=== PATIENT | female | born 1995 | race Caucasian/White ===

== ENCOUNTER 2016-04-14 20:22 | Emergency (ER) | payer SELFPAY ==
[~2016-04-14] VITALS: Ht 162.6 cm; Wt 93.4 kg
[~2016-04-14 20:22] MED LIST: ARIP15TA4 PO; NITR-65 PO; [UNRECOGNIZED DRUG - OTHER]; celexa; lithium; mirilax; vitamin
--- OUTSIDE RECORDS SUMMARY | 2016-04-14 20:28 | XMS REPORT ---
Author VARSHA [facility] eClinicalWorks Address Unknown Phone Unavailable Care Team Providers Care Vulcanizer Operator Name Role Phone VARSHA CASTRO CP Unavailable Allergies, Adverse Reactions, Alerts Substance Reaction Event Type Haldol Info Not Available Drug Allergy Problems Problem Type Condition Code Onset Dates Condition Status Assessment Encounter for Depo-Provera contraception Z30.42 Active Problem Anxiety state, unspecified 300.00 Active Problem Elevated liver enzymes 790.5 Active Problem Unspecified episodic mood disorder 296.90 Active Problem Unspecified disorder of skin and subcutaneous tissue 709.9 Active Assessment Encounter for other general counseling and advice on contraception Z30.09 Active Problem Elevated prolactin level 259.9 Active Problem Routine general medical examination at health care facility V70.0 Active Medications Medication Code System Code Instructions Start Date End Date Status Dosage Lowrys Carbonate [facility] [address]-84 300 MG Orally Three times a day 1 capsule Abilify [facility] [address]-10 2 MG Orally Once a day 1 tablet Procedures Procedure Coding System Code Date Preventive Care Est Pt. Age 18-39 CPT-4 85430 Dec 04, 2015 DEPO PROVERA (150 MG/ML) CPT-4 J1050 Dec 04, 2015 URINE TEST CPT-4 84042 Dec 04, 2015 CULTURE, BACTERIA, OTHER CPT-4 14403 Dec 04, 2015 No Charge CPT-4 25918 Dec 04, 2015 SPECIMEN HANDLING CPT-4 49811 Dec 04, 2015 THER/PROPH/DIAG INJ, SC/IM CPT-4 69698 Dec 04, 2015 DOWNEY VAG, DNA, DIR PROBE CPT-4 87093 Dec 04, 2015 TRICHOMONAS ASSAY W/OPTIC CPT-4 77389 Dec 04, 2015 Vital Signs Date/Time: Dec 04, 2015 Cardiac Monitoring Heart Rate 74 bpm Weight 202.3 lbs Height 64.5 in BMI 34.18 Index Blood Pressure Diastolic 72 mmHg Blood Pressure Systolic 102 mmHg Results Name Result Date Reference Range Unit Abnormality Flag CULTURE, GENITAL ----Genital Culture, Routine Final report [id number] PDF Report ----PDF Report1 [facility] 20151204 TEST, URINE (IN HOUSE) ----RESULTS Negative [id number] ----Lot # [id number] ----Control + [id number] ----Exp date 20151204 PAP TEST, HPV IF ASCUS ----. . 20151204 GC/CHLAM PROBE (STATE) Summary Purpose eClinicalWorks Submission
[2016-04-14] MEDS ORDERED: NS IV 1000 ML 1,000 ML IV SCH (20:45)
[2016-04-14 20:52] LABS: BILIRUBIN,URINE NEGATIVE (NEGATIVE); KETONES,URINE NEGATIVE (NEGATIVE); LEUKOCYTE ESTERASE ,URINE NEGATIVE (NEGATIVE); NITRITE,URINE NEGATIVE (NEGATIVE); PH,URINE 7 (5-9); PROTEIN,URINE NEGATIVE (NEGATIVE); UROBILINOGEN,URINE NORMAL (NORMAL)
--- NOTE | 2016-04-14 21:02 | ED General ---
General Chief Complaint: General Problems/Pain Stated Complaint: TREMORS, DRY HEAVING, CONFUSION, DROOLING Nursing Triage Note: Pt presents to ED with c/o increased anxiety, drooling, and shakiness over the last week. Pt was instructed to increase [place] dosage to 4 tabs daily a few months ago, she was not taking them as prescribed d/t "Not wanting to", over the last 2 weeks she has started taking them as prescribed besides missing two pills. Since taking them as prescribed she has noticed these symptoms. Unable to get into [facility] for 2 weeks. VSS. Nursing Sepsis Screen: No Definite Risk Source of Information: Patient Exam Limitations: No Limitations History of Present Illness Time Seen by Provider: 20:59 Initial Comments To ER with concerns of high lithium levels. She states that she has increased anxiety, drooling, tremors over the past 4 days. She denies vomiting and diarrhea but did have nausea 2 days ago--none since then. She states that about 2 weeks ago she was instructed to increase her lithium level to 4 tablets daily. Prior to that she was supposed to be taking 3 tablets daily but was in reality only taking about 3 tablets per week. Her mental health provider was unaware that she was not taking 3 tablets daily so increased her dose to 4 tablets daily. So, her dose went from 3 tablets over the course of a week to 4 tablets daily about 2 weeks ago. She is uncertain how many milligrams are in each tablet. She has been on lithium for several years. She had a similar episode about 2 years ago and was told that her lithium level was high while she was inpatient at [facility]. Timing/Duration: 3-4 Days Severity: Moderate Associated Systoms: No Chest Pain, No Cough, No Diaphoresis, No Fever/Chills, No Nausea/Vomiting Allergies and Home Medications Allergies Coded Allergies: haloperidol (Verified Allergy, Mild, 12/16/14) Home Medications (Reported) (Reported) (Reported) (Reported) (Reported) Aripiprazole 15 Mg Tablet 15 MG PO (Reported) Nitrofurantoin Monohyd/M-Cryst 100 Mg Capsule #14 1 TAB PO BID Prescribed by: SHIRA ZUÑIGA on 12/17/14 0000 Constitutional: see HPI EENTM: see HPI Respiratory: no symptoms reported Cardiovascular: no symptoms reported Genitourinary: no symptoms reported Musculoskeletal: no symptoms reported Skin: no symptoms reported Psychiatric/Neurological: No Symptoms Reported Hematologic/Lymphatic: No Symptoms Reported Immunological/Allergic: no symptoms reported Past Nyktryi-Mgyrax-Svyjmi Hx Patient Social History Alcohol Use: Denies Use Recreational Drug Use: No Smoking Status: Never a Smoker 2nd Hand Smoke Exposure: No Recent Foreign Travel: No Contact w/Someone Who Travel: No Recent Infectious Disease Expo: No Recent Hopitalizations: No Immunizations Up To Date Tetanus Booster (TDap): Unknown Seasonal Allergies Seasonal Allergies: No Surgeries HX Surgeries: No Respiratory Hx Respiratory Disorders: No Cardiovascular Hx Cardiac Disorders: No Neurological Hx Neurological Disorders: No Reproductive System Hx : 0 Hx Para: 0 Hx Reproductive Disorders: No Genitourinary Hx Genitourinary Disorders: No Gastrointestinal Hx Gastrointestinal Disorders: No Musculoskeletal Hx Musculoskeletal Disorders: No Endocrine Hx Endocrine Disorders: No Psychosocial Hx Psychiatric Problems: Yes (previous suicidal ideation) Behavioral Health Disorders: Anxiety, Bipolar, Schizophrenia, Depression Family Medical History Significant Family History: No Pertinent Family Hx Physical Exam Vital Signs Vital Sign - Last 12Hours 04/14/16 20:30 Temp 98.5 Pulse 73 Resp 18 B/P 131/86 Pulse Ox 100 O2 Delivery Room Air Capillary Refill : Less Than 3 Seconds General Appearance: No Apparent Distress WD/WN HEENT: PERRL/EOMI TMs Normal Neck: Full Range of Motion Normal Inspection Respiratory: Normal Breath Sounds No Accessory Muscle Use No Respiratory Distress Cardiovascular: Regular Rate, Rhythm Normal Peripheral Pulses Gastrointestinal: Normal Bowel Sounds Soft Extremity: Normal Capillary Refill Normal Inspection Neurologic/Psychiatric: Alert Oriented x3 Other (she has a flat affect but she is able to converse with me and recall all of her history including dosage changes and what her symptoms are. She does have tremors in her hands noted bilaterally, mild.) Skin: Normal Color Warm/Dry Progress/Results/Core Measures Results/Orders Lab Results Laboratory Tests Test 04/14/16 20:44 04/14/16 20:55 Range/Units Ur Tricyclic Antidepressants Screen NEGATIVE NEGATIVE Urine Amphetamines Screen NEGATIVE NEGATIVE Urine Bacteria NEGATIVE /HPF Urine Barbiturates Screen NEGATIVE NEGATIVE Urine Benzodiazepines Screen NEGATIVE NEGATIVE Urine Bilirubin NEGATIVE NEGATIVE Urine Cannabinoids Screen NEGATIVE NEGATIVE Urine Casts NONE /LPF Urine Clarity SLIGHTLY CLOUDY Urine Cocaine Screen NEGATIVE NEGATIVE Urine Color YELLOW Urine Crystals NONE /LPF Urine Culture Indicated NO Urine Glucose (UA) NEGATIVE NEGATIVE Urine Ketones NEGATIVE NEGATIVE Urine Leukocyte Esterase NEGATIVE NEGATIVE Urine Methadone Screen NEGATIVE NEGATIVE Urine Methamphetamines Screen NEGATIVE NEGATIVE Urine Mucus NEGATIVE /LPF Urine Nitrite NEGATIVE NEGATIVE Urine Opiates Screen NEGATIVE NEGATIVE Urine Oxycodone Screen NEGATIVE NEGATIVE Urine Phencyclidine Screen NEGATIVE NEGATIVE Urine Propoxyphene Screen NEGATIVE NEGATIVE Urine Protein NEGATIVE NEGATIVE Urine RBC NONE /HPF Urine RBC (Auto) NEGATIVE NEGATIVE Urine Renal Epithelial Cells NONE /HPF Urine Specific [place] 1.010 L 1.016-1.022 Urine Squamous Epithelial Cells >50 H /HPF Urine Urobilinogen NORMAL NORMAL MG/DL Urine WBC 0-2 /HPF Urine pH 7 5-9 Alanine Aminotransferase (ALT/SGPT) 15 0-55 U/L Albumin 4.3 3.2-4.5 G/DL Alkaline Phosphatase 85 40-136 U/L Anion Gap 12 5-14 MMOL/L Aspartate Amino Transf (AST/SGOT) 21 5-34 U/L BUN/Creatinine Ratio 10 Basophils # (Auto) 0.0 0.0-0.1 10^3/uL Basophils (%) (Auto) 0 0-10 % Blood Urea Nitrogen 9 7-18 MG/DL Calcium Level 9.0 8.5-10.1 MG/DL Carbon Dioxide Level 19 L 21-32 MMOL/L Chloride Level 110 H 98-107 MMOL/L Creatinine 0.86 0.60-1.30 MG/DL Eosinophils # (Auto) 0.2 0.0-0.3 10^3/uL Eosinophils (%) (Auto) 2 0-10 % Estimat Glomerular Filtration Rate > 60 Glucose Level 102 70-105 MG/DL Hematocrit 38 35-52 % Hemoglobin 12.7 11.5-16.0 G/DL Lymphocytes # (Auto) 2.6 1.0-4.0 X 10^3 Lymphocytes (%) (Auto) 35 12-44 % Mean Corpuscular Hemoglobin 28 25-34 PG Mean Corpuscular Hemoglobin Concent 33 32-36 G/DL Mean Corpuscular Volume 83 80-99 FL Mean Platelet Volume 10.4 7.4-10.4 FL Monocytes # (Auto) 0.5 0.0-1.0 X 10^3 Monocytes (%) (Auto) 6 0-12 % Neutrophils # (Auto) 4.1 1.8-7.8 X 10^3 Neutrophils (%) (Auto) 56 42-75 % Platelet Count 286 130-400 10^3/uL Potassium Level 3.5 L 3.6-5.0 MMOL/L Red Blood Count 4.58 4.35-5.85 10^6/uL Red Cell Distribution Width 13.8 10.0-14.5 % Serum Alcohol < 10 <10 MG/DL Sodium Level 141 135-145 MMOL/L Thyroid Stimulating Hormone (TSH) 5.34 H 0.35-4.94 UIU/ML Total Bilirubin 0.3 0.1-1.0 MG/DL Total Protein 7.0 6.4-8.2 G/DL White Blood Count 7.4 4.3-11.0 10^3/uL My Orders Orders-DANI MARTIN APRN Cbc With Automated Diff (04/14/16 20:35) Comprehensive Metabolic Panel (04/14/16 20:35) Ua Culture If Indicated (04/14/16 20:35) Urine Bedside (04/14/16 20:35) Thyroid Stimulating Hormone (04/14/16 20:35) [place] Level (04/14/16 20:35) Saline Lock/Iv-Start (04/14/16 20:35) Ns Iv 1000 Ml (Sodium Chloride 0.9%) (04/14/16 20:45) Alcohol (04/14/16 20:53) Drug Screen Stat (Urine) (04/14/16 20:53) Vital Signs/I&O Vital Sign - Last 12Hours 04/14/16 20:30 Temp 98.5 Pulse 73 Resp 18 B/P 131/86 Pulse Ox 100 O2 Delivery Room Air Blood Pressure Mean: 101 Point of Care Testing Urine -Bedside: Negative Departure Communication Progress Notes 2207-patient feels much better at this time. She states that her tremors get worse with anxiety which happens when she talks to people. I have discussed the case with Dr. Talbot. We will reduce her dose from 4 tablets daily as she 's been doing for the past few days to one tablet daily. She will follow up with her mental health provider in one week. She states she would like to get off of the lithium altogether which she takes for bipolar and schizoaffective disorder. she is laughing and joking at this time and well-appearing. Impression Impression: Primary Impression: Occasional tremors Additional Impression: Anxiety Disposition: 01 HOME, SELF-CARE Condition: Stable Departure-Patient Inst. Decision time for Depature: 22:08 Referrals: [facility] (PCP/Family) Primary Care Physician Patient Instructions: NO INSTRUCTIONS GIVEN Add. Discharge Instructions: 1. Reduce your lithium dose to 1 tablet daily until you are seen by your regular health care provider 2. Return to the emergency room for any worsening or other concerns All discharge instructions reviewed with patient and/or family. Voiced understanding. DANI MARTIN APRN Apr 14, 2016 21:02
[2016-04-14 21:03] LABS: BASOPHILS % (AUTO) 0 % (0-10); EOSINOPHILS # (AUTO) 0.2 10^3/uL (0.0-0.3); EOSINOPHILS % (AUTO) 2 % (0-10); LYMPHOCYTES # (AUTO) 2.6 X 10^3 (1.0-4.0); LYMPHOCYTES % (AUTO) 35 % (12-44); MEAN CORPUSCULAR HEMOGLOBIN 28 PG (25-34); MEAN CORPUSCULAR HGB CONC 33 G/DL (32-36); MEAN CORPUSCULAR VOLUME 83 FL (80-99); MEAN PLATELET VOLUME 10.4 FL (7.4-10.4); MONOCYTES # (AUTO) 0.5 X 10^3 (0.0-1.0); MONOCYTES % (AUTO) 6 % (0-12); NEUTROPHILS # (AUTO) 4.1 X 10^3 (1.8-7.8); NEUTROPHILS % (AUTO) 56 % (42-75); PLATELET COUNT 286 10^3/uL (130-400); RED BLOOD COUNT 4.58 10^6/uL (4.35-5.85); RED CELL DISTRIBUTION WIDTH 13.8 % (10.0-14.5); WHITE BLOOD COUNT 7.4 10^3/uL (4.3-11.0)
[2016-04-14 21:17] LABS: SQUAMOUS EPITHELIAL CELL,UR >50 /HPF; WBC,URINE 0-2 /HPF
[2016-04-14 21:21] LABS: ALANINE AMINOTRANSFERASE 15 U/L (0-55); ALBUMIN 4.3 G/DL (3.2-4.5); ANION GAP 12 MMOL/L (5-14); ASPARTATE AMINO TRANSFERASE 21 U/L (5-34); BILIRUBIN,TOTAL 0.3 MG/DL (0.1-1.0); BLOOD UREA NITROGEN 9 MG/DL (7-18); BUN/CREATININE RATIO 10; CARBON DIOXIDE 19 MMOL/L (21-32); CHLORIDE 110 MMOL/L (98-107); CREATININE SERUM 0.86 MG/DL (0.60-1.30); GFR ESTIMATED > 60; GLUCOSE 102 MG/DL (70-105); POTASSIUM 3.5 MMOL/L (3.6-5.0); SODIUM 141 MMOL/L (135-145)
[2016-04-14 21:24] LABS: ALCOHOL < 10 MG/DL (<10)
[2016-04-14 21:41] LABS: THYROID STIMULATING HORMONE 5.34 UIU/ML (0.35-4.94)
[2016-04-14 22:13] VITALS: BP 104/70
== END 2016-04-14 22:13 | disposition home or self-care (01) ==
LOC: EDUNIT# 20:22 → ER 20:24
DX: G25.1 Drug-induced tremor (principal); F41.9 Anxiety disorder, unspecified; T43.591A Poisoning by other antipsychotics and neuroleptics, accidental (unintentional), initial encounter; F31.9 Bipolar disorder, unspecified; Z79.899 Other long term (current) drug therapy
CPT/HCPCS: 36415; 80053; 80178; 80306; 80320; 81000; 84443; 84703; 85025; 96360

== ENCOUNTER 2016-07-19 12:11 | Emergency (ER) | payer SELFPAY ==
[~2016-07-19] VITALS: Ht 160 cm; Wt 93.9 kg
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
[2016-07-19 13:31] LABS: BASOPHILS % (AUTO) 0 % (0-10); EOSINOPHILS # (AUTO) 0.2 10^3/uL (0.0-0.3); EOSINOPHILS % (AUTO) 2 % (0-10); LYMPHOCYTES # (AUTO) 2.4 X 10^3 (1.0-4.0); LYMPHOCYTES % (AUTO) 31 % (12-44); MEAN CORPUSCULAR HEMOGLOBIN 27 PG (25-34); MEAN CORPUSCULAR HGB CONC 32 G/DL (32-36); MEAN CORPUSCULAR VOLUME 83 FL (80-99); MEAN PLATELET VOLUME 10.6 FL (7.4-10.4); MONOCYTES # (AUTO) 0.5 X 10^3 (0.0-1.0); MONOCYTES % (AUTO) 7 % (0-12); NEUTROPHILS # (AUTO) 4.6 X 10^3 (1.8-7.8); NEUTROPHILS % (AUTO) 60 % (42-75); PLATELET COUNT 303 10^3/uL (130-400); RED BLOOD COUNT 4.97 10^6/uL (4.35-5.85); RED CELL DISTRIBUTION WIDTH 14.1 % (10.0-14.5); WHITE BLOOD COUNT 7.7 10^3/uL (4.3-11.0)
[2016-07-19 13:34] LABS: BILIRUBIN,URINE NEGATIVE (NEGATIVE); KETONES,URINE NEGATIVE (NEGATIVE); LEUKOCYTE ESTERASE ,URINE NEGATIVE (NEGATIVE); NITRITE,URINE NEGATIVE (NEGATIVE); PH,URINE 8 (5-9); PROTEIN,URINE NEGATIVE (NEGATIVE); UROBILINOGEN,URINE NORMAL (NORMAL)
[2016-07-19 13:54] LABS: SQUAMOUS EPITHELIAL CELL,UR >50 /HPF
[2016-07-19 13:56] LABS: ALANINE AMINOTRANSFERASE 19 U/L (0-55); ALBUMIN 4.5 G/DL (3.2-4.5); ANION GAP 8 MMOL/L (5-14); ASPARTATE AMINO TRANSFERASE 21 U/L (5-34); BILIRUBIN,TOTAL 0.3 MG/DL (0.1-1.0); BLOOD UREA NITROGEN 7 MG/DL (7-18); BUN/CREATININE RATIO 9; CALCIUM 9.2 MG/DL (8.5-10.1); CARBON DIOXIDE 22 MMOL/L (21-32); CHLORIDE 109 MMOL/L (98-107); CREATININE SERUM 0.76 MG/DL (0.60-1.30); GFR ESTIMATED > 60; GLUCOSE 80 MG/DL (70-105); POTASSIUM 3.7 MMOL/L (3.6-5.0); SODIUM 139 MMOL/L (135-145); TOTAL PROTEIN 7.3 G/DL (6.4-8.2)
[2016-07-19 13:59] LABS: ALCOHOL < 10 MG/DL (<10)
[2016-07-19 14:01] LABS: ACETAMINOPHEN < 10 UG/ML (10-30); SALICYLATE < 5.0 MG/DL (5.0-20.0)
[2016-07-19 16:10] VITALS: BP 130/86
== END 2016-07-19 16:10 | disposition short-term general hospital (02) ==
LOC: EDUNIT# 12:11 → ER 12:13
DX: R45.851 Suicidal ideations (principal); F25.9 Schizoaffective disorder, unspecified; Z79.899 Other long term (current) drug therapy
CPT/HCPCS: 36415; 80053; 80306; 80320; 80329; 81000; 84443; 84703; 85025; 93005

== ENCOUNTER 2016-10-17 04:10 | Emergency (ER) | payer OTHER ==
[~2016-10-17] VITALS: Ht 160 cm; Wt 93.9 kg
[~2016-10-17 04:10] MED LIST changes: -lithium; +lithium PO
[2016-10-17] MEDS ORDERED: LACTATED RINGERS 1,000 ML IV ONE (04:37)
--- NOTE | 2016-10-17 04:43 | ED Headache ---
General Stated Complaint: HEADACHE,BLURRY VISION Source: patient History of Present Illness Time seen by provider: 04:25 Initial Comments PT ARRIVES VIA POV FROM HOME--DROVE HERSELF HERE, LIVES ALONE STATES SHE WOKE UP AT 0100 TODAY WITH A "MAJOR HEADACHE" --STATES "IT WAS PART OF MY DREAM" AND IT WOKE HER UP C/O NAUSEA AND VOMITED X 2 C/O BLURRY VISION AT TIMES STATES "IT'S LIKE A MIGRAINE BUT SUPER INTENSE" HEADACHE IS IN FRONTAL AREA PT HAS HAD HEADACHES SIMILAR TO THIS SINCE HER TEENS--STATES SHE USED TO GET THEM EVERY MONTH HAD SIMILAR HEADACHE ON Friday10/11/16 THAT LASTED FROM [phone], WENT AWAY ON IT'S OWN PT HAS NOT TAKEN ANYTHING FOR HER HEADACHE TODAY OR FRIDAY PT WITH EXTENSIVE PSYCH HISTORY --STATES SHE TAKES LITHIUM, AND LAST DOSE WAS YESTERDAY AFTERNOON. DENIES MISSED DOSES PT HAS BEEN ON MULTIPLE ANTIPSYCHOTICS, BUT STATES "WE JUST DECIDED TO DROP THEM ALL"--SHE DECIDED TO STOP TAKING THEM--AND QUIT TAKING THEM ALL EXCEPT LITHIUM ON Friday10/11/16 PT DENIES BEING UNDER ANY STRESS RECENTLY--STATES "MY STRESS WENT AWAY" PT HAS HAD AT LEAST 5 PSYCH ADMITS, LAST ONE WAS EARLIER THIS YEAR LMP > 1 YEAR AGO, WAS ON DEPO-PROVERA, BUT HAS NOT HAD ANY FOR MANY MONTHS. PT STATES SHE HAS HAD MULTIPLE NEGATIVE HOME TESTS, INCLUDING Friday10/11/16 PT IS NOT USING ANY OTHER TYPE OF CONTROL. PCP: [facility] PSYCH: [facility]. Allergies and Home Medications Allergies Coded Allergies: haloperidol (Verified Allergy, Mild, 12/16/14) Home Medications Aripiprazole 15 Mg Tablet, 15 MG PO, (Reported) Butalb/Acetaminophen/Caffeine 1 Each Capsule, 1-2 EACH PO Q6H PRN for HEADACHE, #10 Prescribed by: DAVID DUNBAR on 10/17/16 0553 Nitrofurantoin Monohyd/M-Cryst 100 Mg Capsule, 1 TAB PO BID, #14 Ref 0 Prescribed by: SHIRA ZUÑIGA on 12/17/14 0000 Ondansetron 4 Mg Tab.rapdis, 4 MG PO Q4H, #10 Prescribed by: DAVID DUNBAR on 10/17/16 0553 [celexa] , (Reported) [cogetin] , (Reported) [lithium] , (Reported) [mirilax] , (Reported) [vitamin] , (Reported) Constitutional: no symptoms reported Eyes: See HPI, Blurred Vision Ears, Nose, Mouth, Throat: no symptoms reported Respiratory: no symptoms reported Cardiovascular: no symptoms reported Gastrointestinal: see HPI, nausea, vomiting Genitourinary: see HPI : No (LMP > 1 YEAR AGO) Musculoskeletal: no symptoms reported Skin: no symptoms reported Psychiatric/Neurological: See HPI, Headache, Denies Numbness, Denies Paresthesia, Denies Seizure, Denies Tingling, Denies Weakness Past Dacxgds-Uoutvc-Ehhaku Hx Patient Social History Alcohol Use: Denies Use Recreational Drug Use: No Smoking Status: Never a Smoker 2nd Hand Smoke Exposure: No Recent Foreign Travel: No Contact w/Someone Who Travel: No Recent Hopitalizations: No Immunizations Up To Date Tetanus Booster (TDap): Unknown Seasonal Allergies Seasonal Allergies: No Surgeries HX Surgeries: No Respiratory Hx Respiratory Disorders: No Cardiovascular Hx Cardiac Disorders: No Neurological Hx Neurological Disorders: Yes Neurological Disorders: Headaches /Migraines Reproductive System : No Hx Reproductive Disorders: No Genitourinary Hx Genitourinary Disorders: No Gastrointestinal Hx Gastrointestinal Disorders: No Musculoskeletal Hx Musculoskeletal Disorders: No Endocrine Hx Endocrine Disorders: No HEENT HX ENT Disorders: No Cancer Hx Cancer: No Psychosocial Hx Psychiatric Problems: Yes (EXTENSIVE PSYCH ISSUES, HAS BEEN HOSPITALIZED AT LEAST 5 TIMES FOR PSYCH ISSUES; SUICIDAL IDEATIONS) Behavioral Health Disorders: Sleep Difficulties, Anxiety, Suicide Attempts, Bipolar, Schizophrenia, Depression Family Medical History Significant Family History: No Pertinent Family Hx Physical Exam Vital Signs Vital Sign - Last 12Hours 10/17/16 04:16 Temp 97.4 Pulse 90 Resp 20 B/P (MAP) 131/74 Pulse Ox 100 O2 Delivery Room Air Capillary Refill : General Appearance: WD/WN, no apparent distress, other (SMILING, DOES NOT APPEAR TO BE IN ANY DISCOMFORT OR DISTRESS. ) HEENT: PERRL/EOMI, normal ENT inspection, TMs normal, pharynx normal, No photophobia Neck: non-tender, full range of motion, supple, normal inspection Cardiovascular: normal peripheral pulses, regular rate, rhythm, no murmur Respiratory: normal breath sounds, no respiratory distress, no accessory muscle use Gastrointestinal: non tender, soft Back: normal inspection Extremities: normal inspection, no pedal edema, normal capillary refill Psychiatric: alert, oriented x 3 Crainal Nerves: normal hearing, normal speech, PERRL Coordination/Gait: normal finger to nose, normal gait Motor/Sensory: no motor deficit, no sensory deficit, no pronator drift Skin: normal color, warm/dry Progress/Results/Core Measures Results/Orders Lab Results Laboratory Tests Test 10/17/16 04:34 10/17/16 05:19 Range/Units White Blood Count 7.8 4.3-11.0 10^3/uL Red Blood Count 4.76 4.35-5.85 10^6/uL Hemoglobin 12.5 11.5-16.0 G/DL Hematocrit 39 35-52 % Mean Corpuscular Volume 82 80-99 FL Mean Corpuscular Hemoglobin 26 25-34 PG Mean Corpuscular Hemoglobin Concent 32 32-36 G/DL Red Cell Distribution Width 14.8 H 10.0-14.5 % Platelet Count 297 130-400 10^3/uL Mean Platelet Volume 9.8 7.4-10.4 FL Neutrophils (%) (Auto) 62 42-75 % Lymphocytes (%) (Auto) 29 12-44 % Monocytes (%) (Auto) 6 0-12 % Eosinophils (%) (Auto) 3 0-10 % Basophils (%) (Auto) 0 0-10 % Neutrophils # (Auto) 4.9 1.8-7.8 X 10^3 Lymphocytes # (Auto) 2.3 1.0-4.0 X 10^3 Monocytes # (Auto) 0.4 0.0-1.0 X 10^3 Eosinophils # (Auto) 0.2 0.0-0.3 10^3/uL Basophils # (Auto) 0.0 0.0-0.1 10^3/uL Sodium Level 139 135-145 MMOL/L Potassium Level 3.7 3.6-5.0 MMOL/L Chloride Level 108 H 98-107 MMOL/L Carbon Dioxide Level 23 21-32 MMOL/L Anion Gap 8 5-14 MMOL/L Blood Urea Nitrogen 9 7-18 MG/DL Creatinine 0.75 0.60-1.30 MG/DL Estimat Glomerular Filtration Rate > 60 BUN/Creatinine Ratio 12 Glucose Level 105 70-105 MG/DL Calcium Level 8.8 8.5-10.1 MG/DL Serum Test, Qualitative NEGATIVE NEGATIVE Serum Alcohol < 10 <10 MG/DL Urine Opiates Screen NEGATIVE NEGATIVE Urine Oxycodone Screen NEGATIVE NEGATIVE Urine Methadone Screen NEGATIVE NEGATIVE Urine Propoxyphene Screen NEGATIVE NEGATIVE Urine Barbiturates Screen NEGATIVE NEGATIVE Ur Tricyclic Antidepressants Screen NEGATIVE NEGATIVE Urine Phencyclidine Screen NEGATIVE NEGATIVE Urine Amphetamines Screen NEGATIVE NEGATIVE Urine Methamphetamines Screen NEGATIVE NEGATIVE Urine Benzodiazepines Screen NEGATIVE NEGATIVE Urine Cocaine Screen NEGATIVE NEGATIVE Urine Cannabinoids Screen NEGATIVE NEGATIVE My Orders Orders - DAVID DUNBAR DO Alcohol (10/17/16 04:37) Basic Metabolic Panel (10/17/16 04:37) Cbc With Automated Diff (10/17/16 04:37) Drug Screen Stat (Urine) (10/17/16 04:37) Hcg,Qualitative Serum (10/17/16 04:37) Ondansetron Injection (Zofran Injectio (10/17/16 04:45) Saline Lock/Iv-Start (10/17/16 04:37) Lactated Ringers (Lr 1000 Ml Iv Solution (10/17/16 04:37) [place] Level (10/17/16 04:43) Ketorolac Injection (Toradol Injection) (10/17/16 05:15) Medications Given in ED Current Medications Medications Dose Ordered Sig/Tierney Route Start Time Stop Time Status Last Admin Dose Admin Ketorolac Tromethamine 30 mg ONCE ONCE IVP 10/17/16 05:15 10/17/16 05:16 UNV 10/17/16 05:09 30 MG Lactated Ringer's 1,000 ml @ 0 mls/hr Q0M ONCE IV 10/17/16 04:37 10/17/16 04:40 DC 10/17/16 04:43 1,000 MLS/HR Ondansetron HCl 4 mg ONCE ONCE IVP 10/17/16 04:45 10/17/16 04:46 DC 10/17/16 04:43 4 MG Vital Signs/I&O Vital Sign - Last 12Hours 10/17/16 04:16 Temp 97.4 Pulse 90 Resp 20 B/P (MAP) 131/74 Pulse Ox 100 O2 Delivery Room Air Progress Note : Progress Note NAUSEA COMPLETELY GONE AND HEADACHE NEARLY COMPLETELY GONE AT DISMISSAL Departure Impression Impression: Primary Impression: Headache Disposition: 01 HOME, SELF-CARE Condition: Improved Departure-Patient Inst. Referrals: [facility] (PCP/Family) Primary Care Physician Patient Instructions: Headache, Adult (DC) Add. Discharge Instructions: LOTS OF CLEAR LIQUIDS MOTRIN 800 MG EVERY 6 HOURS NEEDED FOR PAIN FOLLOW UP WITH [facility] IF SYMPTOMS RETURN Scripts Ondansetron (Zofran Odt) 4 Mg Tab.rapdis 4 MG PO Q4H for Nausea/Vomiting, #10 TAB Prov: DAVID DUNBAR DO 10/17/16 Butalb/Acetaminophen/Caffeine (Esgic Capsule) 1 Each Capsule 1-2 EACH PO Q6H Y for HEADACHE, #10 CAP Prov: DAVID DUNBAR DO 10/17/16 DAVID DUNBAR DO Oct 17, 2016 04:43
[2016-10-17] MEDS ORDERED: ONDANSETRON 4 MG/2 ML (SDV) Z0FRAN IVP ONE (04:45)
[2016-10-17 04:47] LABS: BASOPHILS % (AUTO) 0 % (0-10); EOSINOPHILS # (AUTO) 0.2 10^3/uL (0.0-0.3); EOSINOPHILS % (AUTO) 3 % (0-10); LYMPHOCYTES # (AUTO) 2.3 X 10^3 (1.0-4.0); LYMPHOCYTES % (AUTO) 29 % (12-44); MEAN CORPUSCULAR HEMOGLOBIN 26 PG (25-34); MEAN CORPUSCULAR HGB CONC 32 G/DL (32-36); MEAN CORPUSCULAR VOLUME 82 FL (80-99); MEAN PLATELET VOLUME 9.8 FL (7.4-10.4); MONOCYTES # (AUTO) 0.4 X 10^3 (0.0-1.0); MONOCYTES % (AUTO) 6 % (0-12); NEUTROPHILS # (AUTO) 4.9 X 10^3 (1.8-7.8); NEUTROPHILS % (AUTO) 62 % (42-75); PLATELET COUNT 297 10^3/uL (130-400); RED BLOOD COUNT 4.76 10^6/uL (4.35-5.85); RED CELL DISTRIBUTION WIDTH 14.8 % (10.0-14.5); WHITE BLOOD COUNT 7.8 10^3/uL (4.3-11.0)
[2016-10-17] MEDS ORDERED: KETOROLAC 30 MG/ML VIAL ONE (05:02)
[2016-10-17 05:05] LABS: ALCOHOL < 10 MG/DL (<10); ANION GAP 8 MMOL/L (5-14); BLOOD UREA NITROGEN 9 MG/DL (7-18); BUN/CREATININE RATIO 12; CALCIUM 8.8 MG/DL (8.5-10.1); CARBON DIOXIDE 23 MMOL/L (21-32); CHLORIDE 108 MMOL/L (98-107); CREATININE SERUM 0.75 MG/DL (0.60-1.30); GFR ESTIMATED > 60; GLUCOSE 105 MG/DL (70-105); POTASSIUM 3.7 MMOL/L (3.6-5.0); SODIUM 139 MMOL/L (135-145)
[2016-10-17] MEDS ORDERED: KETOROLAC 30 MG/ML VIAL IVP ONE (05:15)
[2016-10-17] MEDS ORDERED: BUTA1CAP45 PO (05:53)
[2016-10-17] MEDS ORDERED: ONDA4TAB8 PO (05:53)
[2016-10-17 06:00] VITALS: BP 131/74
[2017-01-06] MEDS ORDERED: CEPH500C PO (23:37)
== END 2016-10-17 06:00 | disposition home or self-care (01) ==
LOC: EDUNIT# 04:10 → ER 04:15
DX: G43.909 Migraine, unspecified, not intractable, without status migrainosus (principal); F41.9 Anxiety disorder, unspecified; F31.9 Bipolar disorder, unspecified; F20.9 Schizophrenia, unspecified; Z91.5 Personal history of self-harm
CPT/HCPCS: 36415; 80048; 80178; 80306; 80320; 84703; 85025; 96361; 96374; 96375

== ENCOUNTER 2016-12-22 21:25 | Emergency (ER) | payer SELFPAY ==
[~2016-12-22] VITALS: Ht 160 cm; Wt 101.6 kg
[~2016-12-22 21:25] MED LIST changes: +BUTA1CAP45 PO; +ONDA4TAB8 PO; +lithium; -lithium PO
--- OUTSIDE RECORDS SUMMARY | 2016-12-22 21:30 | XMS REPORT ---
Author Author CLEO YANG [facility] Address [address] [place] [address] Care Team Providers Care Mat Making Machine Tender Name Role Phone CLEO YANG Unavailable PROBLEMS Type Condition ICD9-CM Code [id number] Code Onset Dates Condition Status SNOMED Code Problem Overweight E66.3 Active 455105226 Problem Bipolar depression F31.30 Active 97374689 Problem Establishing care with new doctor, encounter for Z71.89 Active 477249228 Problem Breakthrough bleeding on depo provera N92.1 Active 57667960 ALLERGIES No Information SOCIAL HISTORY Never Assessed PLAN OF CARE Activity Details Follow Up patient informed she needs an appt. for a WWE before her next depo shot, 3 Months Reason: VITAL SIGNS MEDICATIONS No Known Medications RESULTS Name Result Date Reference Range TEST, URINE (IN HOUSE) 2016-05-14 RESULTS negative Lot # [id number] Control + Exp date 06/2017 PROCEDURES Procedure Date Ordered Result Body Site URINE TEST May 14, 2016 DEPO PROVERA (150 MG/ML) May 14, 2016 THER/PROPH/DIAG INJ, SC/IM May 14, 2016 IMMUNIZATIONS Vaccine Route Administration Date Status DEPO PROVERA (150 MG/ML) IM Intramuscular May 14, 2016 Administered MEDICAL (GENERAL) HISTORY Type Description Date Medical History schizoaffective disorder Medical History borderline personality disorder Hospitalization History 5 times in 2014 for mental health Hospitalization History [place] [facility] for suicide thoughts 07/2016
--- OUTSIDE RECORDS SUMMARY | 2016-12-22 21:31 | XMS REPORT ---
Author Author VARSHA CASTRO Organization [facility] Address [address] [place] [address] Care Team Providers Care Homeopathic Doctor Name Role Phone VARSHA CASTRO Unavailable PROBLEMS Type Condition ICD9-CM Code ROB64-ND Code Onset Dates Condition Status SNOMED Code Problem Overweight E66.3 Active 344629215 Problem Bipolar depression F31.30 Active 00999937 Problem Establishing care with new doctor, encounter for Z71.89 Active 992612911 Problem Breakthrough bleeding on depo provera N92.1 Active 68090502 ALLERGIES No Information SOCIAL HISTORY Never Assessed PLAN OF CARE VITAL SIGNS MEDICATIONS Medication Instructions Dosage Frequency Start Date End Date Duration Status Depo-Provera 150 MG/ML Intramuscular once every 90 days 1 ml Active RESULTS No Results PROCEDURES No Known procedures IMMUNIZATIONS No Known Immunizations MEDICAL (GENERAL) HISTORY Type Description Date Medical History schizoaffective disorder Medical History borderline personality disorder Hospitalization History 5 times in 2014 for mental health Hospitalization History [facility] [facility] for suicide thoughts 07/2016
--- OUTSIDE RECORDS SUMMARY | 2016-12-22 21:31 | XMS REPORT ---
Author Author SCOTT CONLEY Organization [facility] Address [address] [place] [address] Care Team Providers Care Patrol Sergeant Name Role Phone SCOTT CONLEY Unavailable PROBLEMS Type Condition ICD9-CM Code [id number] Code Onset Dates Condition Status SNOMED Code Problem Bipolar depression F31.30 Active 47384927 Problem Establishing care with new doctor, encounter for Z71.89 Active 061283064 Problem Overweight E66.3 Active 322959636 Problem Breakthrough bleeding on depo provera N92.1 Active 12667800 ALLERGIES Unknown Allergies SOCIAL HISTORY No smoking Hx information available PLAN OF CARE VITAL SIGNS MEDICATIONS Medication Instructions Dosage Frequency Start Date End Date Duration Status Depo-Provera 150 MG/ML Active [place] Carbonate 300 MG Orally Three times a day 1 capsule 8h Active Abilify 2 MG Orally Once a day 1 tablet 24h Active RESULTS Name Result Date Reference Range TEST, URINE (IN HOUSE) 2016-02-27 RESULTS negative Lot # [id number] Control + Exp date 05/2017 PROCEDURES Procedure Date Ordered Related Diagnosis Body Site DEPO PROVERA (150 MG/ML) Feb 27, 2016 THER/PROPH/DIAG INJ, SC/IM Feb 27, 2016 URINE TEST Feb 27, 2016 IMMUNIZATIONS Vaccine Route Administration Date Status DEPO PROVERA (150 MG/ML) IM Intramuscular Feb 27, 2016 Administered
[2016-12-22] MEDS ORDERED: LEVO25TA2 PO (21:44)
--- NOTE | 2016-12-22 22:25 | ED Psychosocial ---
General Chief Complaint: Psych/Social Disorder Stated Complaint: PSYCH EVAL Nursing Triage Note: pt reports wanting admitted for suidial thoughts for "a while" no specific plan. Source: patient Exam Limitations: no limitations (BRONWYN HERNANDEZ MD) History of Present Illness Time seen by provider: 21:54 Initial Comments This 21-year-old woman presents to the emergency room with exacerbations of chronic mental health issues. She had an issue with her fianc that caused "chaos" with her friends and family. She feels like her friends and family would "be better off without me". She has suicidal ideation and states an unusual plan for suicide. She knows an individual who she states is "psychotic " who she thinks would willingly kill her if she proposed that to him. She reports having a festination with the characters Vale and [place] from [facility]. She identifies with the character [place] and states the individual she would approach about killing her would identify with the Joker ( who is abusive to [place]). She also states she enjoys the thrill of pain. She is presently a patient of [facility] and sees Nette Bajwa and Nereida Hensley (spelling?). She is medicated with lithium and levothyroxin. She has supervised medication distribution. Patient reports she has been admitted a total of 6 times in the past for psychiatric issues. She has had admissions at [facility] in [place]. She reports that she feels worse that she did in 2014 when she was admitted 5 times. She is shaky and intermittently tearful. (BRONWYN HERNANDEZ MD) Allergies and Home Medications Allergies Coded Allergies: haloperidol (Verified Allergy, Mild, 12/16/14) Home Medications Aripiprazole 15 Mg Tablet, 15 MG PO, (Reported) Levothyroxine Sodium 25 Mcg Tablet, Unknown Dose PO, (Reported) [lithium] , (Reported) Constitutional: see HPI EENTM: no symptoms reported Respiratory: no symptoms reported Cardiovascular: no symptoms reported Gastrointestinal: no symptoms reported Genitourinary: no symptoms reported : No Musculoskeletal: no symptoms reported Skin: no symptoms reported Psychiatric/Neurological: See HPI (BRONWYN HERNANDEZ MD) Past Zjsszgp-Yhhjxg-Alzybh Hx Patient Social History Alcohol Use: Denies Use Recreational Drug Use: No Smoking Status: Never a Smoker 2nd Hand Smoke Exposure: No Recent Foreign Travel: No Contact w/Someone Who Travel: No Recent Infectious Disease Expo: No Recent Hopitalizations: No (BRONWYN HERNANDEZ MD) Immunizations Up To Date Tetanus Booster (TDap): Unknown (BRONWYN HERNANDEZ MD) Seasonal Allergies Seasonal Allergies: No (BRONWYN HERNANDEZ MD) Surgeries History of Surgeries: No (BRONWYN HERNANDEZ MD) Respiratory History of Respiratory Disorde: No (BRONWYN HERNANDEZ MD) Cardiovascular History of Cardiac Disorders: No (BRONWYN HERNANDEZ MD) Neurological History of Neurological Disord: Yes Neurological Disorders: Headaches /Migraines (BRONWYN HERNANDEZ MD) Reproductive System : No Last Menstrual Period: Dec 01, 2016 Hx Reproductive Disorders: No (BRONWYN HERNANDEZ MD) Genitourinary History of Genitourinary Disor: No (BRONWYN HERNANDEZ MD) Gastrointestinal History of Gastrointestinal Di: No (BRONWYN HERNANDEZ MD) Musculoskeletal History of Musculoskeletal Dis: No (BRONWYN HERNANDEZ MD) Endocrine History of Endocrine Disorders: Yes Endocrine Disorders: Hypothyroidsim (BRONWYN HERNANDEZ MD) HEENT History of HEENT Disorders: No (BRONWYN HERNANDEZ MD) Cancer History of Cancer: No (BRONWYN HERNANDEZ MD) Psychosocial History of Psychiatric Problem: Yes (previous suicidal ideation, schizophrenia/ schizoaffective disorder, borderline personality disorder) Behavioral Health Disorders: Anxiety, Bipolar, Depression Suicide Risk Notes: pt placed in gown, personal items removed from room. (BRONWYN HERNANDEZ MD) Integumentary History of Skin or Integumenta: No (BRONWYN HERNANDEZ MD) Blood Transfusions History of Blood Disorders: No (BRONWYN HERNANDEZ MD) Family Medical History Significant Family History: No Pertinent Family Hx (BRONWYN HERNANDEZ MD) Physical Exam Vital Signs Vital Sign - Last 12Hours 12/22/16 21:44 Temp 97.7 Pulse 88 Resp 18 B/P (MAP) 142/84 Pulse Ox 98 O2 Delivery Room Air (NUNU LUJAN MD) Vital Signs Capillary Refill : Less Than 3 Seconds (BRONWYN HERNANDEZ MD) General Appearance: WD/WN, no apparent distress, obese HEENT: PERRL/EOMI, normal ENT inspection, pharynx normal Neck: normal inspection Respiratory: lungs clear, normal breath sounds, no respiratory distress, no accessory muscle use Cardiovascular: regular rate, rhythm, no edema, no murmur Gastrointestinal: normal bowel sounds, non tender, soft Extremities: normal inspection, no pedal edema Neurologic/Psychiatric: mat tester II-XII nml as tested, no motor/sensory deficits, alert, oriented x 3, other (mild fine tremors. Intermittently tearful. Admits to suicidal ideation. Depressed mood. Normal affect) Appearance/Memory: appropriate appearance, impaired insight Behavior/Eye Contact: cooperative, good eye contact, normal speech Thoughts/Hallucinations: no apparent hallucination Skin: normal color, warm/dry (BRONWYN HERNANDEZ MD) Progress/Results/Core Measures Results/Orders Lab Results Laboratory Tests Test 12/22/16 22:50 12/22/16 22:55 Range/Units White Blood Count 10.7 4.3-11.0 10^3/uL Red Blood Count 5.05 4.35-5.85 10^6/uL Hemoglobin 13.3 11.5-16.0 G/DL Hematocrit 41 35-52 % Mean Corpuscular Volume 81 80-99 FL Mean Corpuscular Hemoglobin 26 25-34 PG Mean Corpuscular Hemoglobin Concent 32 32-36 G/DL Red Cell Distribution Width 14.2 10.0-14.5 % Platelet Count 280 130-400 10^3/uL Mean Platelet Volume 11.0 H 7.4-10.4 FL Neutrophils (%) (Auto) 68 42-75 % Lymphocytes (%) (Auto) 24 12-44 % Monocytes (%) (Auto) 5 0-12 % Eosinophils (%) (Auto) 2 0-10 % Basophils (%) (Auto) 0 0-10 % Neutrophils # (Auto) 7.3 1.8-7.8 X 10^3 Lymphocytes # (Auto) 2.6 1.0-4.0 X 10^3 Monocytes # (Auto) 0.6 0.0-1.0 X 10^3 Eosinophils # (Auto) 0.3 0.0-0.3 10^3/uL Basophils # (Auto) 0.0 0.0-0.1 10^3/uL Sodium Level 138 135-145 MMOL/L Potassium Level 3.8 3.6-5.0 MMOL/L Chloride Level 105 98-107 MMOL/L Carbon Dioxide Level 24 21-32 MMOL/L Anion Gap 9 5-14 MMOL/L Blood Urea Nitrogen 8 7-18 MG/DL Creatinine 0.78 0.60-1.30 MG/DL Estimat Glomerular Filtration Rate > 60 BUN/Creatinine Ratio 10 Glucose Level 93 70-105 MG/DL Calcium Level 9.7 8.5-10.1 MG/DL Magnesium Level 2.5 H 1.8-2.4 MG/DL Total Bilirubin 0.4 0.1-1.0 MG/DL Aspartate Amino Transf (AST/SGOT) 23 5-34 U/L Alanine Aminotransferase (ALT/SGPT) 21 0-55 U/L Alkaline Phosphatase 93 40-136 U/L Total Protein 7.9 6.4-8.2 GM/DL Albumin 4.5 3.2-4.5 GM/DL Thyroid Stimulating Hormone (TSH) 3.72 0.35-4.94 UIU/ML Free Thyroxine 0.95 0.70-1.48 NG/DL Serum Test, Qualitative NEGATIVE NEGATIVE Salicylates Level < 5.0 L 5.0-20.0 MG/DL Acetaminophen Level < 10 L 10-30 UG/ML Serum Alcohol < 10 <10 MG/DL Urine Color YELLOW Urine Clarity SLIGHTLY CLOUDY Urine pH 7 5-9 Urine Specific [place] 1.010 L 1.016-1.022 Urine Protein NEGATIVE NEGATIVE Urine Glucose (UA) NEGATIVE NEGATIVE Urine Ketones NEGATIVE NEGATIVE Urine Nitrite NEGATIVE NEGATIVE Urine Bilirubin NEGATIVE NEGATIVE Urine Urobilinogen NORMAL NORMAL MG/DL Urine Leukocyte Esterase 2+ H NEGATIVE Urine RBC (Auto) NEGATIVE NEGATIVE Urine RBC NONE /HPF Urine WBC 0-2 /HPF Urine Squamous Epithelial Cells >50 H /HPF Urine Crystals NONE /LPF Urine Bacteria TRACE /HPF Urine Casts NONE /LPF Urine Mucus NEGATIVE /LPF Urine Culture Indicated NO Urine Opiates Screen NEGATIVE NEGATIVE Urine Oxycodone Screen NEGATIVE NEGATIVE Urine Methadone Screen NEGATIVE NEGATIVE Urine Propoxyphene Screen NEGATIVE NEGATIVE Urine Barbiturates Screen NEGATIVE NEGATIVE Ur Tricyclic Antidepressants Screen NEGATIVE NEGATIVE Urine Phencyclidine Screen NEGATIVE NEGATIVE Urine Amphetamines Screen NEGATIVE NEGATIVE Urine Methamphetamines Screen NEGATIVE NEGATIVE Urine Benzodiazepines Screen NEGATIVE NEGATIVE Urine Cocaine Screen NEGATIVE NEGATIVE Urine Cannabinoids Screen NEGATIVE NEGATIVE (NUNU LUJAN MD) My Orders Orders - NUNU LUJAN MD Acetaminophen Tablet (Tylenol Tablet) (12/23/16 10:27) (NUNU LUJAN MD) Vital Signs/I&O Vital Sign - Last 12Hours 12/23/16 14:00 Temp 97.7 (NUNU LUJAN MD) Blood Pressure Mean: 103 Progress Note #1: Time: 22:19 Progress Note [facility] screener was contacted. We discussed patient's history and possible need for admission. After review with the sorting and folding supervisor who knows patient, admission was suggested if the patient is reporting feeling as bad as she does. Progress Note #2: Time: 00:14 Progress Note Labs have been reviewed. Patient is medically cleared but no beds were available. The following locations have been checked with the following results : [facility] [place], [place] - No beds, suggested checking in the morning [facility], [place] - No beds, possibly beds in the morning [facility] - [facility] beds [place] - No beds, suggested checking in the morning [place] - Will review chart [facility] - No beds, 15 patient wait [facility] - No beds, suggested checking after 08:00 [facility] - No beds, suggested checking back after 10:00 (BRONWYN HERNANDEZ MD) Progress Note : Progress Note I did assume care of the patient at 0 630. Patient is medically cleared for inpatient admission. 0900: I have reexamined the patient and patient remains medically clear. Reviewed the laboratory data. We have asked the social work team to assist with finding placement. Patient retells same story is listed above and still believe she would benefit from inpatient admission. She is very concerned about her well-being. Patient has pillowcase turner that distributes her meds daily. We did have her come by this morning and give her typical morning medicines. Patient has tolerated regular breakfast without difficulty. She is resting comfortably and in no distress currently. Pending assignment. 1150: Social work was able to get [facility], Oswald Martínez, to evaluate patient in the ER. After he talked with her, decision was made for return to home with close follow-up. We then talked to her together and patient was very tearful and concerned and ultimately the decision was made to place the patient in attendant care under [facility]. Patient is much more agreeable to that plan and appreciative. Oswald will set up process. Monitor patient. 1430: Patient resting comfortably and has eaten lunch. Patient to go with client technologies specialist to attendant care at approximately 1600 today. Patient still and agreement with plan. 1603: Attendant care worker here to pickers material handlers patient. Patient given her close to change back into and she will go to attendant care with [facility] worker. Patient verbalize understanding instructions and agreement with plan. (NUNU LUJAN MD) Departure Impression Impression: Primary Impression: Suicidal ideation Disposition: 01 HOME, SELF-CARE Condition: Stable Departure-Patient Inst. Decision time for Depature: 11:50 (NUNU LUJAN MD) Referrals: [facility] (PCP) Primary Care Physician NETTE BAJWA (Family) Primary Care Physician Patient Instructions: Depression, Adult (DC), Suicide Prevention Add. Discharge Instructions: All discharge instructions reviewed with patient and/or family. Voiced understanding. Go to tendon care with your client technologies specialist. Return for other concerns as needed. Continue home meds. Follow-up with your counselor tomorrow. BRONWYN HERNANDEZ MD Dec 22, 2016 22:25 NUNU LUJAN MD Dec 23, 2016 09:21
[2016-12-22 22:59] LABS: BASOPHILS % (AUTO) 0 % (0-10); EOSINOPHILS # (AUTO) 0.3 10^3/uL (0.0-0.3); EOSINOPHILS % (AUTO) 2 % (0-10); LYMPHOCYTES # (AUTO) 2.6 X 10^3 (1.0-4.0); LYMPHOCYTES % (AUTO) 24 % (12-44); MEAN CORPUSCULAR HEMOGLOBIN 26 PG (25-34); MEAN CORPUSCULAR HGB CONC 32 G/DL (32-36); MEAN CORPUSCULAR VOLUME 81 FL (80-99); MONOCYTES # (AUTO) 0.6 X 10^3 (0.0-1.0); MONOCYTES % (AUTO) 5 % (0-12); NEUTROPHILS # (AUTO) 7.3 X 10^3 (1.8-7.8); NEUTROPHILS % (AUTO) 68 % (42-75); RED BLOOD COUNT 5.05 10^6/uL (4.35-5.85); RED CELL DISTRIBUTION WIDTH 14.2 % (10.0-14.5); WHITE BLOOD COUNT 10.7 10^3/uL (4.3-11.0)
[2016-12-22 23:05] LABS: BILIRUBIN,URINE NEGATIVE (NEGATIVE); KETONES,URINE NEGATIVE (NEGATIVE); LEUKOCYTE ESTERASE ,URINE 2+ (NEGATIVE); NITRITE,URINE NEGATIVE (NEGATIVE); PH,URINE 7 (5-9); PROTEIN,URINE NEGATIVE (NEGATIVE); UROBILINOGEN,URINE NORMAL (NORMAL)
[2016-12-22 23:08] LABS: PLATELET COUNT 280 10^3/uL (130-400)
[2016-12-22 23:12] LABS: SQUAMOUS EPITHELIAL CELL,UR >50 /HPF; WBC,URINE 0-2 /HPF
[2016-12-22 23:19] LABS: ACETAMINOPHEN < 10 UG/ML (10-30); ALANINE AMINOTRANSFERASE 21 U/L (0-55); ALBUMIN 4.5 GM/DL (3.2-4.5); ALCOHOL < 10 MG/DL (<10); ANION GAP 9 MMOL/L (5-14); ASPARTATE AMINO TRANSFERASE 23 U/L (5-34); BILIRUBIN,TOTAL 0.4 MG/DL (0.1-1.0); BLOOD UREA NITROGEN 8 MG/DL (7-18); BUN/CREATININE RATIO 10; CALCIUM 9.7 MG/DL (8.5-10.1); CARBON DIOXIDE 24 MMOL/L (21-32); CHLORIDE 105 MMOL/L (98-107); CREATININE SERUM 0.78 MG/DL (0.60-1.30); GFR ESTIMATED > 60; GLUCOSE 93 MG/DL (70-105); MAGNESIUM 2.5 MG/DL (1.8-2.4); POTASSIUM 3.8 MMOL/L (3.6-5.0); SALICYLATE < 5.0 MG/DL (5.0-20.0); SODIUM 138 MMOL/L (135-145); TOTAL PROTEIN 7.9 GM/DL (6.4-8.2)
[2016-12-22 23:40] LABS: THYROID STIMULATING HORMONE 3.72 UIU/ML (0.35-4.94)
[2016-12-23] MEDS ORDERED: ACETAMINOPHEN 500 MG TAB (TYLENOL) PO STA (10:27)
[2016-12-23 16:09] VITALS: BP 128/70
== END 2016-12-23 16:09 | disposition home or self-care (01) ==
LOC: EDUNIT# 21:25 → ER 21:26
DX: R45.851 Suicidal ideations (principal); G43.909 Migraine, unspecified, not intractable, without status migrainosus; E03.9 Hypothyroidism, unspecified; F32.9 Major depressive disorder, single episode, unspecified; F41.9 Anxiety disorder, unspecified
CPT/HCPCS: 36415; 80053; 80178; 80306; 80320; 80329; 81000; 83735; 84439; 84443; 84703; 85025; 99283

== ENCOUNTER 2016-12-27 23:42 | Observation (INO) | payer OTHER ==
[~2016-12-27] VITALS: Ht 160 cm; Wt 104.9 kg
[~2016-12-27 23:42] MED LIST changes: +LEVO25TA2 PO; -lithium; +lithium PO
[2016-12-27] MEDS ORDERED: LACTATED RINGERS 1,000 ML IV ONE (23:48)
[2016-12-28] VITALS (13 sets, daily range): BP systolic 102–123; BP diastolic 50–74
[2016-12-28 00:10] LABS: BASOPHILS % (AUTO) 0 % (0-10); EOSINOPHILS # (AUTO) 0.4 10^3/uL (0.0-0.3); EOSINOPHILS % (AUTO) 4 % (0-10); LYMPHOCYTES # (AUTO) 2.7 X 10^3 (1.0-4.0); LYMPHOCYTES % (AUTO) 27 % (12-44); MEAN CORPUSCULAR HEMOGLOBIN 26 PG (25-34); MEAN CORPUSCULAR HGB CONC 33 G/DL (32-36); MEAN CORPUSCULAR VOLUME 81 FL (80-99); MEAN PLATELET VOLUME 11.3 FL (7.4-10.4); MONOCYTES # (AUTO) 0.6 X 10^3 (0.0-1.0); MONOCYTES % (AUTO) 5 % (0-12); NEUTROPHILS # (AUTO) 6.4 X 10^3 (1.8-7.8); NEUTROPHILS % (AUTO) 64 % (42-75); PLATELET COUNT 274 10^3/uL (130-400); RED BLOOD COUNT 4.77 10^6/uL (4.35-5.85); RED CELL DISTRIBUTION WIDTH 14.5 % (10.0-14.5); WHITE BLOOD COUNT 10.1 10^3/uL (4.3-11.0)
[2016-12-28] MEDS ORDERED: ONDANSETRON 4 MG/2 ML (SDV) Z0FRAN IVP ONE (00:15)
[2016-12-28] MEDS ORDERED: ACTIVATED CHARCOAL/SORBITOL 50 G/240 ML BTL PO ONE (00:15)
[2016-12-28 01:29] LABS: ALANINE AMINOTRANSFERASE 19 U/L (0-55); ALBUMIN 4.1 GM/DL (3.2-4.5); ALCOHOL < 10 MG/DL (<10); ANION GAP 10 MMOL/L (5-14); ASPARTATE AMINO TRANSFERASE 21 U/L (5-34); BILIRUBIN,TOTAL 0.3 MG/DL (0.1-1.0); BLOOD UREA NITROGEN 8 MG/DL (7-18); BUN/CREATININE RATIO 10; CALCIUM 9.2 MG/DL (8.5-10.1); CARBON DIOXIDE 21 MMOL/L (21-32); CHLORIDE 107 MMOL/L (98-107); CREATININE SERUM 0.77 MG/DL (0.60-1.30); GFR ESTIMATED > 60; GLUCOSE 83 MG/DL (70-105); MAGNESIUM 2.3 MG/DL (1.8-2.4); POTASSIUM 3.6 MMOL/L (3.6-5.0); SALICYLATE < 5.0 MG/DL (5.0-20.0); SODIUM 138 MMOL/L (135-145); TOTAL PROTEIN 6.9 GM/DL (6.4-8.2)
[2016-12-28 01:39] LABS: ACETAMINOPHEN < 10 UG/ML (10-30)
[2016-12-28 01:56] LABS: BILIRUBIN,URINE NEGATIVE (NEGATIVE); KETONES,URINE NEGATIVE (NEGATIVE); LEUKOCYTE ESTERASE ,URINE 2+ (NEGATIVE); NITRITE,URINE NEGATIVE (NEGATIVE); PH,URINE 7 (5-9); PROTEIN,URINE 1+ (NEGATIVE); UROBILINOGEN,URINE NORMAL (NORMAL)
[2016-12-28 02:03] LABS: SQUAMOUS EPITHELIAL CELL,UR 25-50 /HPF; WBC,URINE 0-2 /HPF
[2016-12-28] MEDS ORDERED: LACTATED RINGERS 1,000 ML IV ONE (03:01)
[2016-12-28 04:11] LABS: BASOPHILS % (AUTO) 0 % (0-10); EOSINOPHILS # (AUTO) 0.2 10^3/uL (0.0-0.3); EOSINOPHILS % (AUTO) 2 % (0-10); LYMPHOCYTES # (AUTO) 2.2 X 10^3 (1.0-4.0); LYMPHOCYTES % (AUTO) 20 % (12-44); MEAN CORPUSCULAR HEMOGLOBIN 27 PG (25-34); MEAN CORPUSCULAR HGB CONC 33 G/DL (32-36); MEAN CORPUSCULAR VOLUME 82 FL (80-99); MEAN PLATELET VOLUME 10.7 FL (7.4-10.4); MONOCYTES # (AUTO) 0.6 X 10^3 (0.0-1.0); MONOCYTES % (AUTO) 5 % (0-12); NEUTROPHILS % (AUTO) 73 % (42-75); PLATELET COUNT 284 10^3/uL (130-400); RED BLOOD COUNT 4.65 10^6/uL (4.35-5.85); RED CELL DISTRIBUTION WIDTH 14.4 % (10.0-14.5); WHITE BLOOD COUNT 10.9 10^3/uL (4.3-11.0)
[2016-12-28] MEDS ORDERED: ONDANSETRON 4 MG/2 ML (SDV) Z0FRAN IV PRN (04:30)
[2016-12-28 04:45] LABS: ANION GAP 9 MMOL/L (5-14); BLOOD UREA NITROGEN 7 MG/DL (7-18); BUN/CREATININE RATIO 9; CALCIUM 9.4 MG/DL (8.5-10.1); CARBON DIOXIDE 22 MMOL/L (21-32); CHLORIDE 109 MMOL/L (98-107); CREATININE SERUM 0.76 MG/DL (0.60-1.30); GFR ESTIMATED > 60; GLUCOSE 82 MG/DL (70-105); MAGNESIUM 2.3 MG/DL (1.8-2.4); PHOSPHORUS 2.4 MG/DL (2.3-4.7); POTASSIUM 3.6 MMOL/L (3.6-5.0); SODIUM 140 MMOL/L (135-145)
[2016-12-28] MEDS: LACTATED RINGERS 1,000 ML IV SCH ×2 (05:21→12:19)
[2016-12-28] MEDS ORDERED: POTASSIUM CL 10MEQ/50ML IVPB 50 ML IV SCH (06:00)
[2016-12-28] MEDS ORDERED: MAGNESIUM 1 GM/100 ML IVPB 100 ML IV SCH (06:00)
[2016-12-28] MEDS ORDERED: KCL 20 MEQ TAB (K-DUR) PO SCH (06:00)
[2016-12-28] MEDS ORDERED: KCL 20 MEQ TAB (K-DUR) PO ONE (06:15)
--- NOTE | 2016-12-28 06:41 | ED Psychosocial ---
General Chief Complaint: Overdose Stated Complaint: INTENTIONAL DRUG OVERDOSE OF LITHIUM;SUICIDE Nursing Triage Note: PT TO ED 6 PER EMS FOR C/O POSSIBLE OD ON LITHIUM. PT REPORTS SHE HAD BEEN TALKING W/ THE "HOTLINE" ET WAS TOLD THAT SINCE SHE WAS NOT "COMPLETELY SUICIDAL" THERE WAS "NOTHING THEY COULD DO FOR HER." PT REPORTS SHE TOOK HER LITHIUM FROM HER FIANCE, WENT INTO THE BATHROOM ET TOOK "7". Source: patient History of Present Illness Time seen by provider: 23:48 Initial Comments PT ARRIVES VIA EMS FROM HOME PT STATES SHE TOOK 7 300 MG LITHIUM TABLETS 5 MINUTES BEFORE EMS ARRIVED, IN AN EFFORT TO KILL HERSELF PT HAS A BOTTLE OF LITHIUM 300 MG #120 FILLED ON 12/19/16. PRESCRIBED 2 PILLS TWICE A DAY. THERE ARE #111 LEFT IN THE BOTTLE, WHICH MEANS ONLY 9 PILLS ARE MISSING, AND SHOULD HAVE #36 PILLS MISSING IF SHE HAS BEEN TAKING THEM PRESCRIBED, WHICH OBVIOUSLY PT HAS NOT BEEN TAKING . PT STATES SHE HAS BEEN ON LITHIUM FOR 2 YEARS, AND NO RECENT CHANGES IN DOSE PT STATES SHE DIDN'T TAKE ANY MORE THAN 7 PILLS BECAUSE SHE THOUGHT IT WOULD MAKE HER THROW UP, AND STATES "SO I DIDN'T THINK IT WOULD BE EFFECTIVE IF I TOOK MORE AND I THREW THEM UP" PT DID NOT TAKE HER DOSE THIS MORNING AND DID NOT TAKE HER SYNTHROID TODAY. PT STATES SHE HAS NEVER ACTUALLY TRIED TO KILL HERSELF BEFORE, BUT WAS ON THE PHONE WITH ELENA CAMPBELL, WHEN SHE TOOK THE PILLS PT STATES SHE WAS CRYING ( STATES SHE WAS NOT CRYING FOR ANY PARTICULAR REASON ) AND LOCKED HERSELF IN THE BATHROOM AND TOOK THE PILLS AND TOLD HER BOYFRIEND SHE WAS DOING IT AND HE CALLED EMS. PT IS A PT AT [facility]. HAS NOT SEEN DR. MANN IN AT LEAST A YEAR, BUT SEES A THERAPIST, RAFAL, WHO SHE SAW LAST WEEK , AND ALSO SEES A Toshia BAJWA THERE WELL--SEEN A COUPLE OF WEEKS AGO. PT DENIES ANY PARTICULAR STRESSORS, DENIES ANY CURRENT PROBLEMS WITH BOYFRIEND, FRIENDS OR FAMILY. PT DOES NOT WORK AND DOES NOT GO TO SCHOOL. PT STATES SHE "HAS LONELINESS, SADNESS, HOPELESSNESS" AND "FEEL LIKE I HURT EVERYONE WITH MY WORDS" PT STATES SHE HAS BEEN FEELING SUICIDAL FOR OVER A WEEK, BECAUSE OF "JUST LIFE IN GENERAL" PT WAS SEEN HERE 12/22/16 FOR SUICIDAL IDEATIONS, BUT DID NOT ATTEMPT TO HARM HERSELF. SEE NOTE FROM THAT VISIT FOR DETAILS --PT REPORTED AT THAT TIME, THAT SHE HAD A MARKETING PERFORMANCE ANALYST WHO DISTRIBUTES HER MEDICATION TO HER EVERY DAY, SO IT DOES NOT COMPUTE THAT PT HAS THE BOTTLE OF #120 LITHIUM IN HER POSSESSION, WITH A SIGNIFICANT DISCREPANCY IN HOW MANY SHOULD BE MISSING IF SHE IS TAKING THEM EVERY DAY PRESCRIBED, AND THE FACT THAT ONLY 9 PILLS ARE MISSING, AND SHOULD BE #36 PILLS MISSING IF SHE HAS BEEN TAKING THEM EVERY DAY PRESCRIBED. PT DID HAVE AN EVALUATION BY CARLOS REYNOLDS IN THE ER ON 12/22/16 AND PT WAS DISMISSED TO THE CARE OF AN ATTENDANT CARE WORKER, AND PT WAS TO FOLLOW UP WITH [facility] PT HAS BEEN HERE 8 TIMES AND 7 OF THOSE VISITS WERE FOR PSYCH-RELATED COMPLAINTS -SUICIDAL IDEATIONS. PT HAS HAD MULTIPLE PSYCH ADMITS IN THE PAST. PT DENIES ANY ALCOHOL OR SUBSTANCE ABUSE PER OLD RECORD, PT HAS EXTENSIVE PSYCH HISTORY AND HISTORY OF EXTREME NON- COMPLIANCE. PCP: [facility] Allergies and Home Medications Allergies Coded Allergies: haloperidol (Verified Allergy, Mild, 12/16/14) Home Medications Aripiprazole 15 Mg Tablet, 15 MG PO, (Reported) Levothyroxine Sodium 25 Mcg Tablet, Unknown Dose PO, (Reported) [lithium] , 600 MG PO BID, (Reported) Constitutional: no symptoms reported Respiratory: no symptoms reported Cardiovascular: no symptoms reported Gastrointestinal: No abdominal pain, nausea, No vomiting Genitourinary: no symptoms reported : No LMP: Dec 25, 2016 Control/STD Prophylaxis: None Musculoskeletal: no symptoms reported Skin: no symptoms reported Psychiatric/Neurological: See HPI, Depressed, Emotional Problems Past Feiyzqm-Evaksp-Iatpdb Hx Patient Social History Alcohol Use: Denies Use Recreational Drug Use: No Smoking Status: Never a Smoker 2nd Hand Smoke Exposure: No Recent Foreign Travel: No Contact w/Someone Who Travel: No Recent Infectious Disease Expo: No Recent Hopitalizations: No Physical Abuse: No Sexual Abuse: No Mistreated: No Fear: No Immunizations Up To Date Tetanus Booster (TDap): Unknown Seasonal Allergies Seasonal Allergies: No Surgeries History of Surgeries: No Respiratory History of Respiratory Disorde: No Cardiovascular History of Cardiac Disorders: No Neurological History of Neurological Disord: Yes Neurological Disorders: Headaches /Migraines Reproductive System Hx Reproductive Disorders: No Genitourinary History of Genitourinary Disor: No Gastrointestinal History of Gastrointestinal Di: No Musculoskeletal History of Musculoskeletal Dis: No Endocrine History of Endocrine Disorders: Yes Endocrine Disorders: Hypothyroidsim HEENT History of HEENT Disorders: No Cancer History of Cancer: No Psychosocial History of Psychiatric Problem: Yes (SUICIDAL IDEATIONS, OVERDOSE ON LITHIUM ; SCHIZOAFFECTIVE DISORDER. EXTENSIVE PSYCH ISSUES, AND HAS HAD AT LEAST 5 -6 PSYCH ADMITS ) Behavioral Health Disorders: Anxiety, Suicide Attempts, Bipolar, Personality Disorder, Schizophrenia, Depression Suicide Risk Score: 12 Integumentary History of Skin or Integumenta: No Blood Transfusions History of Blood Disorders: No Family Medical History Family Medial History: Patient reports no known family medical history. Physical Exam Vital Signs Vital Sign - Last 12Hours 12/27/16 23:48 Temp 98.1 Pulse 69 Resp 20 B/P (MAP) 118/91 Pulse Ox 100 O2 Delivery Room Air Capillary Refill : Less Than 3 Seconds General Appearance: WD/WN, no apparent distress, obese, other (TALKATIVE, SMILING AT TIMES. ) HEENT: PERRL/EOMI, normal ENT inspection Neck: non-tender, full range of motion, supple, normal inspection Respiratory: normal breath sounds, no respiratory distress, no accessory muscle use Cardiovascular: regular rate, rhythm, no murmur Gastrointestinal: normal bowel sounds, soft Neurologic/Psychiatric: coal or ore controller II-XII nml as tested, no motor/sensory deficits, alert, oriented x 3 Appearance/Memory: appropriate appearance, no memory impairment Behavior/Eye Contact: cooperative, good eye contact Thoughts/Hallucinations: no apparent hallucination, No delusions, No flight of ideas, No grandiose, No incoherent, No obsessive, No paranoid, No persecution, No phobic, No sikh, other (SUICIDAL IDEATION) Skin: normal color, warm/dry, other (NO EVIDENCE OF CUTTING, ETC. ) Progress/Results/Core Measures Results/Orders Lab Results Laboratory Tests Test 12/27/16 23:59 12/28/16 00:10 12/28/16 01:43 12/28/16 03:36 Range/Units White Blood Count 10.1 10.9 4.3-11.0 10^3/uL Red Blood Count 4.77 4.65 4.35-5.85 10^6/uL Hemoglobin 12.6 12.5 11.5-16.0 G/DL Hematocrit 39 38 35-52 % Mean Corpuscular Volume 81 82 80-99 FL Mean Corpuscular Hemoglobin 26 27 25-34 PG Mean Corpuscular Hemoglobin Concent 33 33 32-36 G/DL Red Cell Distribution Width 14.5 14.4 10.0-14.5 % Platelet Count 274 284 130-400 10^3/uL Mean Platelet Volume 11.3 H 10.7 H 7.4-10.4 FL Neutrophils (%) (Auto) 64 73 42-75 % Lymphocytes (%) (Auto) 27 20 12-44 % Monocytes (%) (Auto) 5 5 0-12 % Eosinophils (%) (Auto) 4 2 0-10 % Basophils (%) (Auto) 0 0 0-10 % Neutrophils # (Auto) 6.4 8.0 H 1.8-7.8 X 10^3 Lymphocytes # (Auto) 2.7 2.2 1.0-4.0 X 10^3 Monocytes # (Auto) 0.6 0.6 0.0-1.0 X 10^3 Eosinophils # (Auto) 0.4 H 0.2 0.0-0.3 10^3/uL Basophils # (Auto) 0.0 0.0 0.0-0.1 10^3/uL Serum Test, Qualitative NEGATIVE NEGATIVE Sodium Level 138 140 135-145 MMOL/L Potassium Level 3.6 3.6 3.6-5.0 MMOL/L Chloride Level 107 109 H 98-107 MMOL/L Carbon Dioxide Level 21 22 21-32 MMOL/L Anion Gap 10 9 5-14 MMOL/L Blood Urea Nitrogen 8 7 7-18 MG/DL Creatinine 0.77 0.76 0.60-1.30 MG/DL Estimat Glomerular Filtration Rate > 60 > 60 BUN/Creatinine Ratio 10 9 Glucose Level 83 82 70-105 MG/DL Calcium Level 9.2 9.4 8.5-10.1 MG/DL Magnesium Level 2.3 2.3 1.8-2.4 MG/DL Total Bilirubin 0.3 0.1-1.0 MG/DL Aspartate Amino Transf (AST/SGOT) 21 5-34 U/L Alanine Aminotransferase (ALT/SGPT) 19 0-55 U/L Alkaline Phosphatase 81 40-136 U/L Total Protein 6.9 6.4-8.2 GM/DL Albumin 4.1 3.2-4.5 GM/DL TSH [place] Testing 4.00 0.35-4.94 UIU/ML Salicylates Level < 5.0 L 5.0-20.0 MG/DL Acetaminophen Level < 10 L 10-30 UG/ML Serum Alcohol < 10 <10 MG/DL Urine Color YELLOW Urine Clarity SLIGHTLY CLOUDY Urine pH 7 5-9 Urine Specific [place] 1.005 L 1.016-1.022 Urine Protein 1+ H NEGATIVE Urine Glucose (UA) NEGATIVE NEGATIVE Urine Ketones NEGATIVE NEGATIVE Urine Nitrite NEGATIVE NEGATIVE Urine Bilirubin NEGATIVE NEGATIVE Urine Urobilinogen NORMAL NORMAL MG/DL Urine Leukocyte Esterase 2+ H NEGATIVE Urine RBC (Auto) 1+ H NEGATIVE Urine RBC RARE /HPF Urine WBC 0-2 /HPF Urine Squamous Epithelial Cells 25-50 H /HPF Urine Crystals NONE /LPF Urine Bacteria LARGE H /HPF Urine Casts NONE /LPF Urine Mucus NEGATIVE /LPF Urine Culture Indicated YES Urine Opiates Screen NEGATIVE NEGATIVE Urine Oxycodone Screen NEGATIVE NEGATIVE Urine Methadone Screen NEGATIVE NEGATIVE Urine Propoxyphene Screen NEGATIVE NEGATIVE Urine Barbiturates Screen NEGATIVE NEGATIVE Ur Tricyclic Antidepressants Screen NEGATIVE NEGATIVE Urine Phencyclidine Screen NEGATIVE NEGATIVE Urine Amphetamines Screen NEGATIVE NEGATIVE Urine Methamphetamines Screen NEGATIVE NEGATIVE Urine Benzodiazepines Screen NEGATIVE NEGATIVE Urine Cocaine Screen NEGATIVE NEGATIVE Urine Cannabinoids Screen NEGATIVE NEGATIVE Phosphorus Level 2.4 2.3-4.7 MG/DL Test 12/28/16 05:11 Range/Units My Orders Orders - DAVID DUNBAR K DO O2 (12/27/16 23:48) Ua Culture If Indicated (12/27/16 23:48) Thyroid Analyzer (12/27/16 23:48) Drug Screen Stat (Urine) (12/27/16 23:48) Cbc With Automated Diff (12/27/16 23:48) Comprehensive Metabolic Panel (12/27/16 23:48) Alcohol (12/27/16 23:48) Acetaminophen (12/27/16 23:48) Salicylate (12/27/16 23:48) Ekg Tracing (12/27/16 23:48) Monitor-Rhythm Ecg Trace Only (12/27/16 23:48) Hcg,Qualitative Serum (12/27/16 23:48) [place] Level (12/27/16 23:48) Magnesium (12/27/16 23:48) Saline Lock/Iv-Start (12/27/16 23:48) Lactated Ringers (Lr 1000 Ml Iv Solution (12/27/16 23:48) Ondansetron Injection (Zofran Injectio (12/28/16 00:15) Charcoal/Sorbitol Oral Susp (Actidose/So (12/28/16 00:15) Urine Culture (12/28/16 01:43) Medications Given in ED Current Medications Medications Dose Ordered Sig/Tierney Route Start Time Stop Time Status Last Admin Dose Admin Charcoal/Sorbitol 50 gm ONCE ONCE PO 12/28/16 00:15 12/28/16 00:16 DC 12/28/16 00:40 50 GM Lactated Ringer's 1,000 ml @ 0 mls/hr Q0M ONCE IV 12/27/16 23:48 12/27/16 23:50 DC 12/28/16 00:40 1,000 MLS/HR Ondansetron HCl 4 mg ONCE ONCE IVP 12/28/16 00:15 12/28/16 00:16 DC 12/28/16 00:40 4 MG Vital Signs/I&O Vital Sign - Last 12Hours 12/27/16 12/28/16 12/28/16 23:48 02:58 03:05 Temp 98.1 Pulse 69 68 Resp 20 18 B/P (MAP) 118/91 Pulse Ox 100 99 97 O2 Delivery Room Air Room Air Room Air Blood Pressure Mean: 100 Progress Note : Progress Note NO DETERIORATION IN PT'S CONDITION DURING ER STAY LITHIUM LEVEL IS A "SEND OUT" LAB, AND NORMALLY WILL NOT GET RESULTS BACK FOR 2- 3 BUSINESS DAYS, AND THIS IS A FRIDAY EVENING, IT WILL NOT EVEN GET SENT OUT UNTIL FRIDAY SOMETIME. DISCUSSED WITH LAB STAFF, THE URGENCY AND IMPORTANCE OF GETTING LITHIUM LEVEL BACK TONIGHT, PT HAS OVERDOSED ON IT. THEY WILL ATTEMPT TO ARRANGE TO HAVE TEST DONE AT ANOTHER NEARBY FACILITY TONIGHT. ECG Initial ECG Impression Time: 00:53 Initial ECG Rate: 83 Initial ECG Rhythm: Normal Sinus Initial ECG Impression: Normal Initial ECG Comparisson: No Previous ECG Available Departure Communication (Admissions) Progress Notes 0209--SPOKE WITH DR. ARROYO, ACCEPTS PT FOR ADMIT. Impression Impression: Primary Impression: Intentional lithium overdose Additional Impression: Suicidal behavior with attempted self-injury Disposition: ADMITTED INPATIENT Condition: Stable Admissions Decision to Admit Reason: Admit from ER (General) Decision to Admit/Date: Dec 27, 2016 Time/Decision to Admit Time: 02:10 Departure-Patient Inst. Referrals: CONCEPCION BAJWA (Family) Primary Care Physician [facility] (PCP) Primary Care Physician Patient Instructions: ALCOHOL AND SUBSTANCE ABUSE DAVID DUNBAR DO Dec 28, 2016 06:41
[2016-12-28] MEDS ORDERED: INFLUENZA TRIvalent 2017-2018 0.5 ML/45 MCG SYR IM ONE (07:45)
--- NOTE | 2016-12-28 15:11 | Short Stay Summary ---
History of Present Illness History of Present Illness Reason for visit/HPI 21 yo F that came to ER after ingesting her lithium. Patient states that she ingested over 30 tabs. ER doctor called the pharmacy and got filled date and patient was only missed 9 tabs from her bottle. Poison control was called. Patient denied any symptoms. States that she was on the phone with the [facility] line when she ingested her medication. They then told her to come to the ER and she did. This AM patient has already met with [facility] and came up with a safety plan. Their recommendation was that it was ok to send patient home with safety plan. They are going to make a home visit today. Patient is comfortable with this plan and would like to go home. Date of Admission Dec 28, 2016 at 02:10 Date of Discharge 12/28/16 Time Seen by Provider: 13:00 Attending Physician Beatriz Cam DO Admitting Physician Luca,[facility] Allergies and Home Medications Allergies Coded Allergies: haloperidol (Verified Allergy, Mild, 12/16/14) Home Medications Levothyroxine Sodium 25 Mcg Tablet, Unknown Dose PO, (Reported) Past Vuwpoge-Ooncve-Ktushj Hx Patient Social History Living Status: Lives home with boyfriend Alcohol Use: Denies Use Recreational Drug Use: No Smoking Status: Never a Smoker 2nd Hand Smoke Exposure: No Physical Abuse Screen: No Sexual Abuse: No Recent Foreign Travel: No Contact w/other who traveled: No Recent Hopitalizations: No Recent Infectious Disease Expo: No Immunizations Up To Date Tetanus Booster (TDap): Unknown Seasonal Allergies Seasonal Allergies: No Surgeries No Respiratory No Cardiovascular No Neurological Yes Headaches /Migraines Reproductive System Hx Reproductive Disorders: No Genitourinary No Gastrointestinal No Musculoskeletal No Endocrine History of Endocrine Disorders: Yes Endocrine Disorders: Hypothyroidsim HEENT History of HEENT Disorders: No Cancer No Psychosocial History of Psychiatric Problem: Yes (SUICIDAL IDEATIONS, OVERDOSE ON LITHIUM ; SCHIZOAFFECTIVE DISORDER. EXTENSIVE PSYCH ISSUES, AND HAS HAD AT LEAST 5 -6 PSYCH ADMITS ) Behavioral Health Disorders: Anxiety, Suicide Attempts, Bipolar, Personality Disorder, Schizophrenia, Depression Integumentary History of Skin or Integumenta: No Blood Transfusions History of Blood Disorders: No Family Medical History Family Hx: Patient reports no known family medical history. Constitutional: No dizziness, No malaise, No weakness EENTM: No blurred vision, No double vision, No vision loss Respiratory: no symptoms reported, No cough, No dyspnea on exertion, No short of breath Cardiovascular: no symptoms reported, No chest pain, No edema, No palpitations , No syncope Gastrointestinal: no symptoms reported, No abdominal pain, No constipation, No diarrhea, No nausea, No vomiting Genitourinary: no symptoms reported, No dysuria, No frequency, No hematuria Musculoskeletal: no symptoms reported Skin: no symptoms reported Psychiatric/Neurological: Anxiety, Depressed, Denies Headache, Denies Seizure, Denies Tingling, Denies Weakness Physical Exam Vital Signs Vital Sign - Last 12Hours 12/27/16 23:48 Temp 98.1 Pulse 69 Resp 20 B/P (MAP) 118/91 Pulse Ox 100 O2 Delivery Room Air Capillary Refill : Less Than 3 Seconds General Appearance: No Apparent Distress, WD/WN HEENT: PERRL/EOMI Neck: Full Range of Motion Respiratory: Chest Non Tender, Lungs Clear, Normal Breath Sounds, No Accessory Muscle Use, No Respiratory Distress Cardiovascular: Regular Rate, Rhythm, No Edema, No Murmur, Normal Peripheral Pulses Gastrointestinal: No Organomegaly, Non Tender, Soft Extremity: Normal Capillary Refill, Normal Inspection, Normal Range of Motion, No Calf Tenderness Neurologic/Psychiatric: Alert, Oriented x3, No Motor/Sensory Deficits, health safety manager II- XII Norm as Tested Skin: Normal Color, Warm/Dry Clinical Quality Measures DVT/VTE Risk/Contraindication: Risk Factor Score Per Nursin RFS Level Per Nursing on Admit: 3=High Short Stay Diagnosis Discharge Diagnosis-Short Stay Admission Diagnosis: Intentional Overdose on [place] Suicidal attempt Final Discharge Diagnosis: See Above Conclusion Labs Laboratory Tests 12/27/16 23:59: White Blood Count 10.1, Red Blood Count 4.77, Hemoglobin 12.6, Hematocrit 39, Mean Corpuscular Volume 81, Mean Corpuscular Hemoglobin 26, Mean Corpuscular Hemoglobin Concent 33, Red Cell Distribution Width 14.5, Platelet Count 274, Mean Platelet Volume 11.3H, Neutrophils (%) (Auto) 64, Lymphocytes (%) (Auto) 27 , Monocytes (%) (Auto) 5, Eosinophils (%) (Auto) 4, Basophils (%) (Auto) 0, Neutrophils # (Auto) 6.4, Lymphocytes # (Auto) 2.7, Monocytes # (Auto) 0.6, Eosinophils # (Auto) 0.4H, Basophils # (Auto) 0.0, Serum Test, Qualitative NEGATIVE 12/28/16 00:10: Sodium Level 138, Potassium Level 3.6, Chloride Level 107, Carbon Dioxide Level 21, Anion Gap 10, Blood Urea Nitrogen 8, Creatinine 0.77, Estimat Glomerular Filtration Rate > 60, BUN/Creatinine Ratio 10, Glucose Level 83, Calcium Level 9.2, Magnesium Level 2.3, Total Bilirubin 0.3, Aspartate Amino Transf (AST/SGOT ) 21, Alanine Aminotransferase (ALT/SGPT) 19, Alkaline Phosphatase 81, Total Protein 6.9, Albumin 4.1, TSH [place] Testing 4.00, Salicylates Level < 5.0L, Acetaminophen Level < 10L, [place] Level 1.47 H, Serum Alcohol < 10 12/28/16 01:43: Urine Color YELLOW, Urine Clarity SLIGHTLY CLOUDY, Urine pH 7, Urine Specific [place] 1.005L, Urine Protein 1+H, Urine Glucose (UA) NEGATIVE, Urine Ketones NEGATIVE, Urine Nitrite NEGATIVE, Urine Bilirubin NEGATIVE, Urine Urobilinogen NORMAL, Urine Leukocyte Esterase 2+H, Urine RBC (Auto) 1+H, Urine RBC RARE, Urine WBC 0-2, Urine Squamous Epithelial Cells 25-50H, Urine Crystals NONE, Urine Bacteria LARGEH, Urine Casts NONE, Urine Mucus NEGATIVE, Urine Culture Indicated YES, Urine Opiates Screen NEGATIVE, Urine Oxycodone Screen NEGATIVE, Urine Methadone Screen NEGATIVE, Urine Propoxyphene Screen NEGATIVE, Urine Barbiturates Screen NEGATIVE, Ur Tricyclic Antidepressants Screen NEGATIVE, Urine Phencyclidine Screen NEGATIVE, Urine Amphetamines Screen NEGATIVE, Urine Methamphetamines Screen NEGATIVE, Urine Benzodiazepines Screen NEGATIVE, Urine Cocaine Screen NEGATIVE, Urine Cannabinoids Screen NEGATIVE 12/28/16 03:36: White Blood Count 10.9, Red Blood Count 4.65, Hemoglobin 12.5, Hematocrit 38, Mean Corpuscular Volume 82, Mean Corpuscular Hemoglobin 27, Mean Corpuscular Hemoglobin Concent 33, Red Cell Distribution Width 14.4, Platelet Count 284, Mean Platelet Volume 10.7H, Neutrophils (%) (Auto) 73, Lymphocytes (%) (Auto) 20 , Monocytes (%) (Auto) 5, Eosinophils (%) (Auto) 2, Basophils (%) (Auto) 0, Neutrophils # (Auto) 8.0H, Lymphocytes # (Auto) 2.2, Monocytes # (Auto) 0.6, Eosinophils # (Auto) 0.2, Basophils # (Auto) 0.0, Sodium Level 140, Potassium Level 3.6, Chloride Level 109H, Carbon Dioxide Level 22, Anion Gap 9, Blood Urea Nitrogen 7, Creatinine 0.76, Estimat Glomerular Filtration Rate > 60, BUN/ Creatinine Ratio 9, Glucose Level 82, Calcium Level 9.4, Magnesium Level 2.3, Phosphorus Level 2.4 12/28/16 05:11: [place] Level 1.34 12/28/16 08:15: [place] Level 1.07 Conclusion/Plan 21 yo F with long psychiatric history that was admitted for observation after intentional overdose with [place] Intentional Overdose in attempt of suicide - Poison control was called - [place] levels trended down and patient was medically cleared - Patient was seen by [facility] sales representative jewelry and safety plan was put in place - Will have close followup with PCP and Psych - Discharge home today Copy Copies To 1: CHU VILLEDA MD, HOLLY R MD Dec 28, 2016 15:11
--- NOTE | 2016-12-28 15:14 | Discharge Instructions ---
Discharge Inst-[facility] Discharge Medications New, Converted or Re-Newed RX: Other (No new scripts) Continued Medications: Levothyroxine Sodium (Synthroid) 25 Mcg Tablet Unknown Dose PO, TAB Discontinued Medications: [lithium] () 600 MG PO BID Patient Instructions Goal/Follow Up Appt: You will be called on Friday with a hospital follow up appt at [facility] Patient Instructions: - make sure you follow your safety plan - If you have thoughts of wanting to hurt yourself then you need to call the [facility] line Activity & Diet Discharge Diet: No Restrictions Activity as Tolerated: Yes Copy Copies To 1: CHU VILLEDA MD, HOLLY R MD Dec 28, 2016 15:14
== END 2016-12-28 15:12 | disposition home or self-care (01) ==
LOC: EDUNIT# 23:42 → ER 23:46 → ICU 12-28 02:10 → UNDOADMOB 12-28 02:10 → ICU 12-28 03:05 → UNDODISOB 12-28 15:50
PROVIDERS: ADMIT Family Medicine; ATTEND Family Medicine
DX: T56.892A Toxic effect of other metals, intentional self-harm, initial encounter (principal); F20.9 Schizophrenia, unspecified; F33.9 Major depressive disorder, recurrent, unspecified; Z79.899 Other long term (current) drug therapy; Z91.14 Patient's other noncompliance with medication regimen
CPT/HCPCS: 36415; 80048; 80053; 80178; 80306; 80320; 80329; 81000; 83735; 84100; 84443; 84703; 85025; 87081; 87088; 93005

== ENCOUNTER 2017-01-29 01:06 | Observation (INO) | payer SELFPAY ==
[~2017-01-29] VITALS: Ht 160 cm; Wt 102.6 kg
[~2017-01-29 01:06] MED LIST changes: +CEPH500C PO
[2017-01-29 01:52] LABS: BILIRUBIN,URINE NEGATIVE (NEGATIVE); KETONES,URINE 1+ (NEGATIVE); LEUKOCYTE ESTERASE ,URINE NEGATIVE (NEGATIVE); NITRITE,URINE NEGATIVE (NEGATIVE); PH,URINE 6.5 (5-9); PROTEIN,URINE NEGATIVE (NEGATIVE); UROBILINOGEN,URINE 1 MG/DL (NORMAL)
--- NOTE | 2017-01-29 01:54 | ED Psychosocial ---
General Chief Complaint: Psych/Social Disorder Stated Complaint: SUICIDAL Nursing Triage Note: PT TO ED 6 W/ C/O SUICIDAL IDEATION ONSET YESTERDAY. PT REPORTS SHE WAS TAKING PLASTIC TRASH BAGS, WRAPPING THEM AROUND HER NECK ET PULLING THEM TIGHT. REPORTS SHE WOULD "PULL TIL SHE ALMOST PASSED OUT". PT STATES TODAY SHE FEELS "IMPULSIVE, SUICIDAL ET ANXIOUS." PT ALSO REPORTS SHE FEELS IF SHE IS "IRRITATING EVERYONE" ET THAT "NO ONE HAS PATIENCE W/ HER". PT DOES REPORT SHE HAS BEEN IN CONTACT W/ [facility] TODAY ET THEY TOLD HER "DO WHAT YOU NEED TO DO." Source: patient Exam Limitations: no limitations History of Present Illness Time seen by provider: 01:30 Initial Comments Here with report of suicidal ideations over the last 24 hours. She states that she was trying to kill herself by wrapping trashbags around her neck and pulling tight until she almost passes out but then stops. She states that she has a lot of thoughts going through her head. States that she is feeling very anxious about all separation. States that she is having anxiety about the mother who is and her grandmother because she is older. Also having anxiety about the huma that she wants to kill because he has and moved on and is starting a new family. States she is concerned about her fianc because she is not sure whether they are going to get . She was at [facility] for inpatient treatment a few weeks ago and started on Prozac. States that helped initially but then stopped helping and is not currently helping now. She was unable to sleep tonight. She states that she is looking at everything as a potential thing that she could kill herself with. She was able to drive to the ER. Timing/Duration: yesterday, getting worse Severity: moderate Associated Symptoms: anxiety, impaired concentration, insomnia, suicidal ideation Allergies and Home Medications Allergies Coded Allergies: haloperidol (Verified Allergy, Mild, 12/16/14) Home Medications Cephalexin 500 Mg Capsule, 500 MG PO TID, #15 Ref 0 Prescribed by: SHIRA ZUÑIGA on 01/06/17 0828 Levothyroxine Sodium 25 Mcg Tablet, Unknown Dose PO, (Reported) Constitutional: see HPI, No chills, No fever EENTM: no symptoms reported Respiratory: no symptoms reported, No short of breath, No wheezing Cardiovascular: No chest pain, No edema, No palpitations Gastrointestinal: No nausea, No vomiting Genitourinary: No dysuria, No frequency Control/STD Prophylaxis: Depo Provera Musculoskeletal: no symptoms reported Skin: no symptoms reported Psychiatric/Neurological: See HPI, Anxiety, Depressed, Emotional Problems All Other Systems Reviewed Negative Unless Noted: Yes Past Vkcaqrm-Mcybyp-Fkweee Hx Patient Social History Alcohol Use: Denies Use Recreational Drug Use: No Smoking Status: Never a Smoker 2nd Hand Smoke Exposure: No Recent Foreign Travel: No Contact w/Someone Who Travel: No Recent Infectious Disease Expo: No Recent Hopitalizations: No Physical Abuse: No Sexual Abuse: No Mistreated: No Fear: No Immunizations Up To Date Tetanus Booster (TDap): Unknown Seasonal Allergies Seasonal Allergies: No Surgeries History of Surgeries: No Respiratory History of Respiratory Disorde: No Cardiovascular History of Cardiac Disorders: No Neurological History of Neurological Disord: Yes Neurological Disorders: Headaches /Migraines Reproductive System Hx Reproductive Disorders: No Genitourinary History of Genitourinary Disor: No Gastrointestinal History of Gastrointestinal Di: No Musculoskeletal History of Musculoskeletal Dis: No Endocrine History of Endocrine Disorders: Yes Endocrine Disorders: Hypothyroidsim HEENT History of HEENT Disorders: No Cancer History of Cancer: No Psychosocial History of Psychiatric Problem: Yes Behavioral Health Disorders: Anxiety, Suicide Attempts, Bipolar, Personality Disorder, Schizophrenia, Depression Suicide Risk Score: 7 Integumentary History of Skin or Integumenta: No Blood Transfusions History of Blood Disorders: No Reviewed Nursing Assessment Reviewed/Agree w Nursing PMH: Yes Family Medical History Significant Family History: No Pertinent Family Hx Family Medial History: Patient reports no known family medical history. Physical Exam Vital Signs Vital Sign - Last 12Hours 01/29/17 01:11 Temp 96.4 Pulse 86 Resp 20 B/P (MAP) 140/88 Pulse Ox 99 O2 Delivery Room Air Capillary Refill : Less Than 3 Seconds General Appearance: WD/WN, no apparent distress HEENT: PERRL/EOMI, pharynx normal Neck: full range of motion, supple Respiratory: lungs clear, normal breath sounds Cardiovascular: regular rate, rhythm, no murmur Peripheral Pulses: 2+ Dorsalis Pedis (R), 2+ Left Dors-Pedis (L), 2+ Radial Pulses (R), 2+ Radial Pulses (L) Gastrointestinal: non tender, soft Extremities: non-tender, normal inspection Neurologic/Psychiatric: alert, oriented x 3 Appearance/Memory: appropriate appearance, neat, impaired insight Behavior/Eye Contact: cooperative, good eye contact, normal speech Thoughts/Hallucinations: no apparent hallucination, persecution Skin: normal color, warm/dry Progress/Results/Core Measures Results/Orders Lab Results Laboratory Tests Test 01/29/17 01:20 01/29/17 02:20 Range/Units Urine Color YELLOW Urine Clarity SLIGHTLY CLOUDY Urine pH 6.5 5-9 Urine Specific [place] 1.015 L 1.016-1.022 Urine Protein NEGATIVE NEGATIVE Urine Glucose (UA) NEGATIVE NEGATIVE Urine Ketones 1+ H NEGATIVE Urine Nitrite NEGATIVE NEGATIVE Urine Bilirubin NEGATIVE NEGATIVE Urine Urobilinogen 1 NORMAL MG/DL Urine Leukocyte Esterase NEGATIVE NEGATIVE Urine RBC (Auto) 1+ H NEGATIVE Urine RBC RARE /HPF Urine WBC NONE /HPF Urine Squamous Epithelial Cells 0-2 /HPF Urine Crystals PRESENT H /LPF Urine Amorphous Sediment MOD PRICILA URATES H /LPF Urine Bacteria TRACE /HPF Urine Casts NONE /LPF Urine Mucus SMALL H /LPF Urine Culture Indicated NO Urine Test NEGATIVE NEGATIVE Urine Opiates Screen NEGATIVE NEGATIVE Urine Oxycodone Screen NEGATIVE NEGATIVE Urine Methadone Screen NEGATIVE NEGATIVE Urine Propoxyphene Screen NEGATIVE NEGATIVE Urine Barbiturates Screen NEGATIVE NEGATIVE Ur Tricyclic Antidepressants Screen NEGATIVE NEGATIVE Urine Phencyclidine Screen NEGATIVE NEGATIVE Urine Amphetamines Screen NEGATIVE NEGATIVE Urine Methamphetamines Screen NEGATIVE NEGATIVE Urine Benzodiazepines Screen NEGATIVE NEGATIVE Urine Cocaine Screen NEGATIVE NEGATIVE Urine Cannabinoids Screen NEGATIVE NEGATIVE White Blood Count 8.2 4.3-11.0 10^3/uL Red Blood Count 5.04 4.35-5.85 10^6/uL Hemoglobin 13.1 11.5-16.0 G/DL Hematocrit 41 35-52 % Mean Corpuscular Volume 82 80-99 FL Mean Corpuscular Hemoglobin 26 25-34 PG Mean Corpuscular Hemoglobin Concent 32 32-36 G/DL Red Cell Distribution Width 14.9 H 10.0-14.5 % Platelet Count 267 130-400 10^3/uL Mean Platelet Volume 10.5 H 7.4-10.4 FL Neutrophils (%) (Auto) 55 42-75 % Lymphocytes (%) (Auto) 29 12-44 % Monocytes (%) (Auto) 13 H 0-12 % Eosinophils (%) (Auto) 3 0-10 % Basophils (%) (Auto) 1 0-10 % Neutrophils # (Auto) 4.5 1.8-7.8 X 10^3 Lymphocytes # (Auto) 2.4 1.0-4.0 X 10^3 Monocytes # (Auto) 1.0 0.0-1.0 X 10^3 Eosinophils # (Auto) 0.3 0.0-0.3 10^3/uL Basophils # (Auto) 0.1 0.0-0.1 10^3/uL Sodium Level 139 135-145 MMOL/L Potassium Level 3.7 3.6-5.0 MMOL/L Chloride Level 107 98-107 MMOL/L Carbon Dioxide Level 22 21-32 MMOL/L Anion Gap 10 5-14 MMOL/L Blood Urea Nitrogen 9 7-18 MG/DL Creatinine 0.70 0.60-1.30 MG/DL Estimat Glomerular Filtration Rate > 60 BUN/Creatinine Ratio 13 Glucose Level 95 70-105 MG/DL Calcium Level 8.9 8.5-10.1 MG/DL Total Bilirubin 0.2 0.1-1.0 MG/DL Aspartate Amino Transf (AST/SGOT) 18 5-34 U/L Alanine Aminotransferase (ALT/SGPT) 15 0-55 U/L Alkaline Phosphatase 79 40-136 U/L Total Protein 7.0 6.4-8.2 GM/DL Albumin 4.0 3.2-4.5 GM/DL TSH [place] Testing 2.82 0.35-4.94 UIU/ML Salicylates Level < 5.0 L 5.0-20.0 MG/DL Acetaminophen Level < 10 L 10-30 UG/ML Serum Alcohol < 10 <10 MG/DL My Orders Orders - NUNU LUJAN MD Ua Culture If Indicated (01/29/17:45) Cbc With Automated Diff (01/29/17:45) Comprehensive Metabolic Panel (01/29/17:45) Alcohol (01/29/17:45) Drug Screen Stat (Urine) (01/29/17:45) Acetaminophen (01/29/17:45) Salicylate (01/29/17:45) Ekg Tracing (01/29/17:45) Hcg,Qualitative Urine (01/29/17:45) Thyroid Analyzer (01/29/17:45) Ondansetron Oral Dissolve Tab (Zofran (01/29/17 02:15) Ondansetron Oral Dissolve Tab (Zofran (01/29/17 02:07) Vital Signs/I&O Vital Sign - Last 12Hours 01/29/17 01:11 Temp 96.4 Pulse 86 Resp 20 B/P (MAP) 140/88 Pulse Ox 99 O2 Delivery Room Air Blood Pressure Mean: 105 Progress Note : Progress Note Seen and evaluated. Labs, UA and EKG ordered. Monitor patient. 0330 labs. EKG reviewed. No acute findings. Patient does need placement as she is consistent continued suicidal ideations. Attempted placement at [facility], [facility] and [facility] in [place] and all are full. Patient has history of [facility] and was just discharged from there 2 weeks ago. [facility] believes they will have discharges in the morning and may have beds and indicated to check back at about noon. I did discuss the situation with the patient. She is wanting to seek treatment. I did discuss the case with Dr. Janel Philippe. She accepts patient for admission, observation status pending transfer to psychiatric inpatient facility. Patient agrees with plan. ECG Initial ECG Impression Date: Jan 29, 2017 Initial ECG Impression Time: 01:49 Initial ECG Rate: 64 Initial ECG Rhythm: Normal Sinus Initial ECG Impression: Normal Initial ECG Comparisson: Unchanged Comment Sinus rhythm with normal axis. No evidence of ST elevation MS. Artifact noted within EKG. Unchanged from previous. Interpreted by me. Departure Communication (Admissions) Time/Spoke to Admitting Phy: 03:34 Impression Impression: Primary Impression: Suicidal ideations Additional Impression: Anxiety and depression Disposition: ADMITTED INPATIENT Condition: Stable Admissions Decision to Admit Reason: Admit from ER (General) Decision to Admit/Date: Jan 29, 2017 Time/Decision to Admit Time: 03:34 Departure-Patient Inst. Referrals: [facility] (PCP) Primary Care Physician BLAS BAJWA PhD (Family) Primary Care Physician NUNU LUJAN MD Jan 29, 2017 01:54
[2017-01-29 01:58] LABS: SQUAMOUS EPITHELIAL CELL,UR 0-2 /HPF
[2017-01-29] MEDS ORDERED: ONDANSETRON 4 MG (ZOFRAN) ORAL DISSOLVE TAB ONE (02:07)
[2017-01-29] MEDS ORDERED: ONDANSETRON 4 MG (ZOFRAN) ORAL DISSOLVE TAB SL STA (02:15)
[2017-01-29 02:33] LABS: BASOPHILS # (AUTO) 0.1 10^3/uL (0.0-0.1); BASOPHILS % (AUTO) 1 % (0-10); EOSINOPHILS # (AUTO) 0.3 10^3/uL (0.0-0.3); EOSINOPHILS % (AUTO) 3 % (0-10); LYMPHOCYTES # (AUTO) 2.4 X 10^3 (1.0-4.0); LYMPHOCYTES % (AUTO) 29 % (12-44); MEAN CORPUSCULAR HEMOGLOBIN 26 PG (25-34); MEAN CORPUSCULAR HGB CONC 32 G/DL (32-36); MEAN CORPUSCULAR VOLUME 82 FL (80-99); MEAN PLATELET VOLUME 10.5 FL (7.4-10.4); MONOCYTES % (AUTO) 13 % (0-12); NEUTROPHILS # (AUTO) 4.5 X 10^3 (1.8-7.8); NEUTROPHILS % (AUTO) 55 % (42-75); PLATELET COUNT 267 10^3/uL (130-400); RED BLOOD COUNT 5.04 10^6/uL (4.35-5.85); RED CELL DISTRIBUTION WIDTH 14.9 % (10.0-14.5); WHITE BLOOD COUNT 8.2 10^3/uL (4.3-11.0)
[2017-01-29 02:52] LABS: ALANINE AMINOTRANSFERASE 15 U/L (0-55); ALCOHOL < 10 MG/DL (<10); ANION GAP 10 MMOL/L (5-14); ASPARTATE AMINO TRANSFERASE 18 U/L (5-34); BILIRUBIN,TOTAL 0.2 MG/DL (0.1-1.0); BLOOD UREA NITROGEN 9 MG/DL (7-18); BUN/CREATININE RATIO 13; CALCIUM 8.9 MG/DL (8.5-10.1); CARBON DIOXIDE 22 MMOL/L (21-32); CHLORIDE 107 MMOL/L (98-107); GFR ESTIMATED > 60; GLUCOSE 95 MG/DL (70-105); POTASSIUM 3.7 MMOL/L (3.6-5.0); SALICYLATE < 5.0 MG/DL (5.0-20.0); SODIUM 139 MMOL/L (135-145)
[2017-01-29 02:53] LABS: ACETAMINOPHEN < 10 UG/ML (10-30)
[2017-01-29] MEDS ORDERED: hydrOXYzine (VISTARIL) 25 MG CAP PO ONE (03:45)
--- OUTSIDE RECORDS SUMMARY | 2017-01-29 04:13 | XMS REPORT ---
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 13474634 Problem Overweight E66.3 Active 698779198 Problem Breakthrough bleeding on depo provera N92.1 Active 55668798 Problem Bipolar depression F31.30 Active 47313137 Problem Establishing care with new doctor, encounter for Z71.89 Active 892449169 ALLERGIES Substance Reaction Event Type Date Status Haldol Unknown Drug Allergy July, Active BuSpar More anxious, depressed and suicidal Drug Allergy July, Active SOCIAL HISTORY Never Assessed PLAN OF CARE Activity Details Follow Up 3 Months Reason:depression VITAL SIGNS Height 64.5 in 2016-07-31 Weight 205.6 lbs 2016-07-31 Temperature 98.6 degrees Fahrenheit 2016-07-31 Heart Rate 88 bpm 2016-07-31 Respiratory Rate 18 2016-07-31 BMI 34.74 kg/m2 2016-07-31 Blood pressure systolic 100 mmHg 2016-07-31 Blood pressure diastolic 70 mmHg 2016-07-31 MEDICATIONS Medication Instructions Dosage Frequency Start Date End Date Duration Status Abilify 9.75 MG/1.3ML Intramuscular once per month 2 ml Active [place] Carbonate 300 MG Orally 4 times a day 1 capsule 6h Active Depo-Provera 150 MG/ML Intramuscular once every 90 days 1 ml Active RESULTS No Results PROCEDURES No Known procedures IMMUNIZATIONS No Known Immunizations MEDICAL (GENERAL) HISTORY Type Description Date Medical History schizoaffective disorder Medical History borderline personality disorder Hospitalization History 5 times in 2014 for mental health Hospitalization History May Unit #2 for suicide thoughts 07/2016 Hospitalization History intentional overdose, suicide attempt-[facility] 12/28/2016
[2017-01-29 04:40] VITALS: BP 117/76
[2017-01-29] MEDS ORDERED: hydrOXYzine (VISTARIL) 25 MG CAP PO PRN (05:00)
[2017-01-29] MEDS ORDERED: FLUO20CA42 PO (05:27)
[2017-01-29] MEDS ORDERED: DIVA500T PO (05:27)
[2017-01-29] MEDS ORDERED: INFLUENZA TRIvalent 2017-2018 0.5 ML/45 MCG SYR IM ONE (07:30)
[2017-01-29 07:48] VITALS: BP 114/76
[2017-01-29] MEDS ORDERED: DIVA-21 PO (10:33)
[2017-01-29 12:00] VITALS: BP 115/74
--- NOTE | 2017-02-01 11:58 | Short Stay Summary ---
History of Present Illness History of Present Illness Reason for visit/HPI 21yo woman with a history of depression presented to ER after a suicidal act. Patient apparently put a plastic bag around her neck with the intent to choke herself. She tells me today that she does not feel safe to go home and thinks she needs psychiatric hospitalization. She has not been admitted for this in the past. She does have a long history of depression. Per chart review, she had seen her therapist earlier last week and told him that she had done the same thing on gi. She was also seen in ER earlier in January due to thoughts of wanting to harm herself but had not acted on it as yet. Date of Admission Jan 29, 2017 at 04:40 Date of Discharge Jan 29, 2017 at 15:58 Time Seen by Provider: 09:00 Attending Physician Ino Merrill MD Admitting Physician Luca,[facility] Allergies and Home Medications Allergies Coded Allergies: haloperidol (Verified Allergy, Mild, 12/16/14) Home Medications Divalproex Sodium 500 Mg Tab.er.24h, 1,000 MG PO HS, (Reported) TAKES 2 (500MG) TABLETS Fluoxetine HCl 20 Mg Capsule, 20 MG PO HS, (Reported) Levothyroxine Sodium 25 Mcg Tablet, 25 MCG PO DAILY, (Reported) Past Nwuyjxt-Qefctz-Aalngn Hx Patient Social History Alcohol Use: Denies Use Recreational Drug Use: No Smoking Status: Never a Smoker 2nd Hand Smoke Exposure: No Physical Abuse Screen: No Sexual Abuse: No Recent Foreign Travel: No Contact w/other who traveled: No Recent Hopitalizations: No Recent Infectious Disease Expo: No Immunizations Up To Date Tetanus Booster (TDap): Unknown Seasonal Allergies Seasonal Allergies: No Surgeries No Respiratory No Cardiovascular No Neurological Yes Headaches /Migraines Reproductive System Hx Reproductive Disorders: No Genitourinary No Gastrointestinal No Musculoskeletal No Endocrine History of Endocrine Disorders: Yes Endocrine Disorders: Hypothyroidsim HEENT History of HEENT Disorders: No Cancer No Psychosocial History of Psychiatric Problem: Yes Behavioral Health Disorders: Anxiety, Suicide Attempts, Bipolar, Personality Disorder, Schizophrenia, Depression Integumentary History of Skin or Integumenta: No Blood Transfusions History of Blood Disorders: No Reviewed Nursing Assessment Reviewed/Agree w Nursing PMH: Yes Family Medical History Significant Family History: No Pertinent Family Hx Family Hx: Asthma 19 MOTHER Constitutional: see HPI All Other Systems Reviewed Negative Unless Noted: Yes Physical Exam Vital Signs Vital Sign - Last 12Hours 01/29/17 01:11 Temp 96.4 Pulse 86 Resp 20 B/P (MAP) 140/88 Pulse Ox 99 O2 Delivery Room Air Capillary Refill : Less Than 3 SecondsLess Than 3 Seconds General Appearance: No Apparent Distress, WD/WN HEENT: PERRL/EOMI, Normal ENT Inspection, Pharynx Normal Neck: Full Range of Motion, Normal Inspection, Non Tender, Supple, Carotid Bruit Respiratory: Chest Non Tender, Lungs Clear, Normal Breath Sounds, No Accessory Muscle Use, No Respiratory Distress Cardiovascular: Regular Rate, Rhythm, No Edema, No Gallop, No JVD, No Murmur, Normal Peripheral Pulses Gastrointestinal: Normal Bowel Sounds, No Organomegaly, No Pulsatile Mass, Non Tender, Soft Back: Normal Inspection, No CVA Tenderness, No Vertebral Tenderness Extremity: Normal Capillary Refill, Normal Inspection, Normal Range of Motion, Non Tender, No Calf Tenderness, No Pedal Edema Neurologic/Psychiatric: Alert, Oriented x3, No Motor/Sensory Deficits, passenger interline clerk II- XII Norm as Tested, Depressed Affect Skin: Normal Color, Warm/Dry Clinical Quality Measures DVT/VTE Risk/Contraindication: Risk Factor Score Per Nursin RFS Level Per Nursing on Admit: 1=Low/No VTE PPX Short Stay Diagnosis Discharge Diagnosis-Short Stay Admission Diagnosis: SUICIDAL ACT SCHIZOAFFECTIVE DISORDER BORDERLINE PERSONALITY DISORDER Final Discharge Diagnosis: SAME Conclusion Conclusion/Plan Serena was observed in hospital as there were no beds available for a psychiatric admission. She remained medically stable, as she was upon presentation. She indicated a willingness to go to a psych hospital, so this was arranged, and she was transferred to [facility] without event. Copy Copies To 1: INO MERRILL MD, JULIE A MD Feb 01, 2017 11:58
== END 2017-01-29 15:58 | disposition designated cancer center or children's hospital (05) ==
LOC: EDUNIT# 01:06 → ER 01:10 → UNDOADMOB 03:35 → 4TH 03:35 → UNDODISOB 17:25
PROVIDERS: ADMIT Pediatrics; ATTEND Pediatrics
DX: R45.851 Suicidal ideations (principal); E03.9 Hypothyroidism, unspecified; F41.9 Anxiety disorder, unspecified; F31.9 Bipolar disorder, unspecified; F60.3 Borderline personality disorder; F25.9 Schizoaffective disorder, unspecified
CPT/HCPCS: 36415; 80053; 80306; 80320; 80329; 81000; 84443; 84703; 85025; 93005; G0378

== ENCOUNTER 2017-05-20 02:00 | Emergency (ER) | payer SELFPAY ==
[~2017-05-20] VITALS: Ht 160 cm; Wt 102.6 kg
[~2017-05-20 02:00] MED LIST changes: +DIVA-21 PO; +DIVA500T PO; +FLUO20CA42 PO
[2017-05-20 02:37] LABS: BILIRUBIN,URINE NEGATIVE (NEGATIVE); CLARITY,URINE CLEAR; COLOR,URINE YELLOW; GLUCOSE, URINE (UA) NEGATIVE (NEGATIVE); KETONES,URINE NEGATIVE (NEGATIVE); LEUKOCYTE ESTERASE ,URINE NEGATIVE (NEGATIVE); NITRITE,URINE NEGATIVE (NEGATIVE); PH,URINE 7 (5-9); PROTEIN,URINE NEGATIVE (NEGATIVE); UROBILINOGEN,URINE NORMAL (NORMAL)
[2017-05-20 02:47] LABS: BACTERIA,URINE TRACE /HPF
[2017-05-20 02:58] LABS: AMPHETAMINE SCREEN, URINE NEGATIVE (NEGATIVE); BARBITURATE SCREEN URINE NEGATIVE (NEGATIVE); BENZODIAZEPINES SCREEN URINE NEGATIVE (NEGATIVE); CANNABINOID SCREEN, URINE NEGATIVE (NEGATIVE); COCAINE SCREEN URINE NEGATIVE (NEGATIVE); METHADONE STAT NEGATIVE (NEGATIVE); METHAMPHETAMINE SCREEN URINE S NEGATIVE (NEGATIVE); OPIATE SCREEN URINE NEGATIVE (NEGATIVE); OXYCODONE STAT NEGATIVE (NEGATIVE); PROPOXYPHENE STAT NEGATIVE (NEGATIVE); TRICYCLIC ANTIDEPRESSANTS SCRE NEGATIVE (NEGATIVE)
[2017-05-20 03:39] LABS: BASOPHILS % (AUTO) 0 % (0-10); EOSINOPHILS # (AUTO) 0.2 10^3/uL (0.0-0.3); EOSINOPHILS % (AUTO) 3 % (0-10); HEMATOCRIT 39 % (35-52); HEMOGLOBIN 13.1 G/DL (11.5-16.0); LYMPHOCYTES # (AUTO) 2.6 X 10^3 (1.0-4.0); LYMPHOCYTES % (AUTO) 33 % (12-44); MEAN CORPUSCULAR HEMOGLOBIN 28 PG (25-34); MEAN CORPUSCULAR HGB CONC 33 G/DL (32-36); MEAN CORPUSCULAR VOLUME 84 FL (80-99); MEAN PLATELET VOLUME 10.5 FL (7.4-10.4); MONOCYTES # (AUTO) 1.1 X 10^3 (0.0-1.0); MONOCYTES % (AUTO) 13 % (0-12); NEUTROPHILS # (AUTO) 4.1 X 10^3 (1.8-7.8); NEUTROPHILS % (AUTO) 51 % (42-75); PLATELET COUNT 244 10^3/uL (130-400); RED BLOOD COUNT 4.72 10^6/uL (4.35-5.85); RED CELL DISTRIBUTION WIDTH 15.8 % (10.0-14.5)
[2017-05-20 04:05] LABS: ACETAMINOPHEN < 10 UG/ML (10-30); ALANINE AMINOTRANSFERASE 45 U/L (0-55); ALKALINE PHOSPHATASE 79 U/L (40-136); BILIRUBIN,TOTAL 0.4 MG/DL (0.1-1.0); BUN/CREATININE RATIO 19; CALCIUM 9.3 MG/DL (8.5-10.1); CARBON DIOXIDE 21 MMOL/L (21-32); CHLORIDE 106 MMOL/L (98-107); CREATININE SERUM 0.68 MG/DL (0.60-1.30); GFR ESTIMATED > 60; GLUCOSE 79 MG/DL (70-105); POTASSIUM 3.9 MMOL/L (3.6-5.0); SALICYLATE < 5.0 MG/DL (5.0-20.0); SODIUM 139 MMOL/L (135-145); TOTAL PROTEIN 6.5 GM/DL (6.4-8.2)
[2017-05-20 04:25] LABS: VALPROIC ACID 75.4 UG/ML (50.0-100.0)
--- NOTE | 2017-05-20 05:46 | ED Psychosocial ---
General Chief Complaint: Psych/Social Disorder Stated Complaint: SUICIDAL, WANTS MEDS FIXED Nursing Triage Note: PRESENTS TO ED REPORTING NEEDS MED CHANGES CAN NOT SLEEP AND BECOMING DELUSIONAL THAT CREATES SUIDIDAL IMPULSES RATHER QUICKLY. REPORTS A MULTI PERSONALITY ISSUE AND MAY BECAME NOT FRIENDLY. Source: patient (SOMEWHAT DIFFICULT TO KEEP ON SUBJECT) History of Present Illness Date Seen by Provider: May 20, 2017 Time Seen by Provider: 02:34 Initial Comments PT ARRIVES VIA POV FROM HOME PT STATES "I JUST WANT MY MEDS ADJUSTED" PT STATES "MY ANXIETY AND DEPRESSION'S BEEN WHACKY LATELY AND IT'S BEEN MAKING ME SUICIDAL AND I CAN'T SLEEP FOR 3 DAYS" "AFTER THE 3RD NIGHT OF NOT SLEEPING I BECOME DELUSIONAL AND I BECOME A THREAT TO OTHERS AND MYSELF" "I LAY DOWN AND I CAN'T SLEEP AND MY ANXIETY GOES WAY UP" SAYS "I'VE BEEN REALLY FUNK AND MY BORDERLINE PERSONALITY COMES OUT AND I APOLOGIZE OF I SNAP" PT STATES SHE HAS NOT MADE ANY ATTEMPT TO HARM HERSELF OR OTHERS, BUT STATES SHE HAS HAD THOUGHTS OF HURTING HERSELF STATES IT REALLY HITS ME FAST AND " ANYTHING I CAN GET MY HANDS ON --ANYTHING TO HURT MYSELF--STARVING MYSELF TO UNTIL I , CUTTING MYSELF, PUTTING A BELT AROUND MY NECK" STATES THE LAST TIME SHE ACTUALLY TRIED TO HURT HERSELF WAS 4 MONTHS AGO AND SHE TRIED TO STRANGLE HERSELF. PT LATER STATES THAT SHE CALLED THE [facility] AND DIDN'T LIKE THE ADVICE THEY WERE GIVING HER AND TOLD THEM SHE WAS COMING HERE. PT GOES TO BOTH [facility] AND [facility]--LAST VISIT TO [facility] WAS 04/27/17, AND MISSED HER LAST THERAPY APPOINTMENT. DENIES ANY RECENT CHANGES IN HER MEDICATIONS OR MISSED DOSES OF MEDICATIONS. PT HAS HAD AT LEAST 6-7 INPATIENT PSYCH ADMITS, WITH MOST RECENT BEING 01/29/18 AFTER PUTTING A PLASTIC BAG AROUND HER NECK PT HAS HAD MULTIPLE OTHER ATTEMPTS BY VARIOUS MEANS, INCLUDING OVERDOSES--LAST VISIT HERE FOR OVERDOSE WAS ON 12/27/16 WHEN SHE OVERDOSED ON LITHIUM [place] [place]ergies and Home Medications Allergies Coded Allergies: haloperidol (Verified Allergy, Mild, 12/16/14) Home Medications Divalproex Sodium 500 Mg Tab.er.24h, 1,000 MG PO HS, (Reported) TAKES 2 (500MG) TABLETS Fluoxetine HCl 20 Mg Capsule, 20 MG PO HS, (Reported) Levothyroxine Sodium 25 Mcg Tablet, 25 MCG PO DAILY, (Reported) Patient Home Medication List Home Medication List Reviewed: Yes Constitutional: no symptoms reported EENTM: no symptoms reported Respiratory: no symptoms reported Cardiovascular: no symptoms reported Gastrointestinal: no symptoms reported Genitourinary: no symptoms reported : No (LMP 8 MONTHS AGO--PT ON DEPO-PROVERA. LAST SHOT 04/05/17) Control/STD Prophylaxis: Depo Provera Musculoskeletal: no symptoms reported Skin: no symptoms reported Psychiatric/Neurological: See HPI, Anxiety, Depressed, Emotional Problems Past Opcaesi-Abavus-Hvwkwr Hx Patient Social History Alcohol Use: Denies Use Recreational Drug Use: No Smoking Status: Never a Smoker 2nd Hand Smoke Exposure: No Recent Foreign Travel: No Contact w/Someone Who Travel: No Recent Infectious Disease Expo: No Recent Hopitalizations: No Immunizations Up To Date Tetanus Booster (TDap): Unknown Seasonal Allergies Seasonal Allergies: No Surgeries History of Surgeries: No Respiratory History of Respiratory Disorde: No Cardiovascular History of Cardiac Disorders: No Neurological History of Neurological Disord: Yes Neurological Disorders: Headaches /Migraines Reproductive System : No Hx Reproductive Disorders: No Genitourinary History of Genitourinary Disor: No Gastrointestinal History of Gastrointestinal Di: No Musculoskeletal History of Musculoskeletal Dis: No Endocrine History of Endocrine Disorders: Yes Endocrine Disorders: Hypothyroidsim HEENT History of HEENT Disorders: No Cancer History of Cancer: No Psychosocial History of Psychiatric Problem: Yes (6-7 PSYCH ADMITS--LAST ONE 01/29/17; OVERDOSES, SUICIDE ATTEMPTS / GESTURES BY VARIOUS MEANS INCLUDING TRYING TO STRANGLE HERSELF AND OVERDOSING) Behavioral Health Disorders: Sleep Difficulties, Anxiety, Suicide Attempts, Bipolar, Personality Disorder, Schizophrenia, Depression Suicide Risk Notes: "FIANCE" PRESENT WITH PT, WHO IS A FEMALE Integumentary History of Skin or Integumenta: No Blood Transfusions History of Blood Disorders: No Family Medical History Significant Family History: No Pertinent Family Hx Family Medial History: Asthma 19 MOTHER Physical Exam Vital Signs Vital Signs - First Documented 05/20/17 02:20 Temp 98.2 Pulse 92 Resp 20 B/P (MAP) 153/111 (125) O2 Delivery Room Air Capillary Refill : Less Than 3 Seconds General Appearance: WD/WN, no apparent distress, obese, other (PT TALKS NON- STOP AT LENGTH, RAPIDLY AND DIFFICULT TO KEEP ON SUBJECT. PT IS VERY IMMATURE. FEMALE S.O. APPEARS MUCH OLDER THAN PT. 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, no motor/sensory deficits, alert, oriented x 3, other (VERY IMMATURE) Appearance/Memory: no memory impairment, impaired insight Behavior/Eye Contact: good eye contact, increased rate of speech Thoughts/Hallucinations: no apparent hallucination Skin: normal color, warm/dry, other (NO EXTERNAL EVIDENCE OF TRAUMA) Progress/Results/Core Measures Results/Orders Lab Results Laboratory Tests Test 05/20/17 02:25 05/20/17 03:30 Range/Units Urine Color YELLOW Urine Clarity CLEAR Urine pH 7 5-9 Urine Specific [place] 1.010 L 1.016-1.022 Urine Protein NEGATIVE NEGATIVE Urine Glucose (UA) NEGATIVE NEGATIVE Urine Ketones NEGATIVE NEGATIVE Urine Nitrite NEGATIVE NEGATIVE Urine Bilirubin NEGATIVE NEGATIVE Urine Urobilinogen NORMAL NORMAL MG/DL Urine Leukocyte Esterase NEGATIVE NEGATIVE Urine RBC (Auto) NEGATIVE NEGATIVE Urine RBC NONE /HPF Urine WBC NONE /HPF Urine Squamous Epithelial Cells 5-10 /HPF Urine Crystals NONE /LPF Urine Bacteria TRACE /HPF Urine Casts NONE /LPF Urine Mucus NEGATIVE /LPF Urine Culture Indicated NO Urine Opiates Screen NEGATIVE NEGATIVE Urine Oxycodone Screen NEGATIVE NEGATIVE Urine Methadone Screen NEGATIVE NEGATIVE Urine Propoxyphene Screen NEGATIVE NEGATIVE Urine Barbiturates Screen NEGATIVE NEGATIVE Ur Tricyclic Antidepressants Screen NEGATIVE NEGATIVE Urine Phencyclidine Screen NEGATIVE NEGATIVE Urine Amphetamines Screen NEGATIVE NEGATIVE Urine Methamphetamines Screen NEGATIVE NEGATIVE Urine Benzodiazepines Screen NEGATIVE NEGATIVE Urine Cocaine Screen NEGATIVE NEGATIVE Urine Cannabinoids Screen NEGATIVE NEGATIVE White Blood Count 8.0 4.3-11.0 10^3/uL Red Blood Count 4.72 4.35-5.85 10^6/uL Hemoglobin 13.1 11.5-16.0 G/DL Hematocrit 39 35-52 % Mean Corpuscular Volume 84 80-99 FL Mean Corpuscular Hemoglobin 28 25-34 PG Mean Corpuscular Hemoglobin Concent 33 32-36 G/DL Red Cell Distribution Width 15.8 H 10.0-14.5 % Platelet Count 244 130-400 10^3/uL Mean Platelet Volume 10.5 H 7.4-10.4 FL Neutrophils (%) (Auto) 51 42-75 % Lymphocytes (%) (Auto) 33 12-44 % Monocytes (%) (Auto) 13 H 0-12 % Eosinophils (%) (Auto) 3 0-10 % Basophils (%) (Auto) 0 0-10 % Neutrophils # (Auto) 4.1 1.8-7.8 X 10^3 Lymphocytes # (Auto) 2.6 1.0-4.0 X 10^3 Monocytes # (Auto) 1.1 H 0.0-1.0 X 10^3 Eosinophils # (Auto) 0.2 0.0-0.3 10^3/uL Basophils # (Auto) 0.0 0.0-0.1 10^3/uL Sodium Level 139 135-145 MMOL/L Potassium Level 3.9 3.6-5.0 MMOL/L Chloride Level 106 98-107 MMOL/L Carbon Dioxide Level 21 21-32 MMOL/L Anion Gap 12 5-14 MMOL/L Blood Urea Nitrogen 13 7-18 MG/DL Creatinine 0.68 0.60-1.30 MG/DL Estimat Glomerular Filtration Rate > 60 BUN/Creatinine Ratio 19 Glucose Level 79 70-105 MG/DL Calcium Level 9.3 8.5-10.1 MG/DL Total Bilirubin 0.4 0.1-1.0 MG/DL Aspartate Amino Transf (AST/SGOT) 41 H 5-34 U/L Alanine Aminotransferase (ALT/SGPT) 45 0-55 U/L Alkaline Phosphatase 79 40-136 U/L Total Protein 6.5 6.4-8.2 GM/DL Albumin 4.0 3.2-4.5 GM/DL TSH [place] Testing 2.10 0.35-4.94 UIU/ML Serum Test, Qualitative NEGATIVE NEGATIVE Salicylates Level < 5.0 L 5.0-20.0 MG/DL Acetaminophen Level < 10 L 10-30 UG/ML Valproic Acid (Depakene) Level 75.4 50.0-100.0 UG/ML Serum Alcohol < 10 <10 MG/DL My Orders Orders - BETTINA,DAVID K DO Ua Culture If Indicated (05/20/17 02:23) Thyroid Analyzer (05/20/17 02:23) Drug Screen Stat (Urine) (05/20/17:) Cbc With Automated Diff (05/20/17:) Comprehensive Metabolic Panel (05/20/17) Alcohol (05/20/17 02:) Acetaminophen (05/20/17:) Salicylate (05/20/17:) Ekg Tracing (05/20/17) Monitor-Rhythm Ecg Trace Only (05/20/17) Hcg,Qualitative Serum (05/20/17:) Valproic Acid (05/20/17 02:31) Vital Signs/I&O Vital Sign - Last 12Hours 05/20/17:20 Temp 98.2 Pulse 92 Resp 20 B/P (MAP) 153/111 (125) O2 Delivery Room Air Blood Pressure Mean: 125 Progress Note : Progress Note FEMALE S.O. AND PT BOTH CRYING AND ARGUING DURING COURSE OF ER STAY--BUT PT DENIES THAT THEY ARE HAVING ISSUES 0425--GIRLFRIEND SUDDENLY WALKS OUT OF ROOM AND STATES SHE IS LEAVING--BOTH SHE AND PT ARE CRYING. PT STATES "I CAN'T HAVE 2 PEOPLE UPSET" AND STATES "I JUST GIVE UP" AND STATES "I GIVE UP ON TRYING TO BE A GOOD PERSON ALL THE TIME-I JUST WANT TO GO OUT AND RAISE HELL" THEN PT FIXATED ON HER KEYS AND HER CAT--STATES GIRLFRIEND TOOK HER KEYS, AND SHE HAS A CAT AT HOME THAT SHE NEEDS TO TAKE CARE OF STATES SHE AND GIRLFRIEND LIVE IN SAME APARTMENT COMPLEX, BUT DO NOT LIVE TOGETHER. PT NOW FOCUSED ON THIS 0445--PT NOW STATING THAT SHE WANTS TO LEAVE, AND WAS ADVISED THAT SHE COULD NOT LEAVE AT THIS TIME AND MENTAL HEALTH SCREENER IS ON HER WAY HERE. PT BECOMES VERY MANIPULATIVE AND TAUNTING AND VERY CHILD-LIKE AND MAKING COMMENTS ABOUT SHE WAS JUST GOING TO LEAVE, AND "SO WHAT HAPPENS IF I LEAVE?" AND "NO BODY'S PAYING ANY ATTENTION TO ME" --ALL IN VERY IMMATURE CONTEXT/DEMEANOR--WAS EXPLAINED TO PT THAT POLICE WOULD BE CONTACTED IF SHE TRIED TO LEAVE, SCREENER HAS NOT BEEN HERE TO EVALUATE HER YET. ECG Initial ECG Impression Date: May 20, 2017 Initial ECG Impression Time: 03:30 Initial ECG Rate: 62 Initial ECG Rhythm: Normal Sinus Departure Communication (Admissions) Progress Notes 0426--CONTACTED ELENA RODRIGUEZ, PAGING SCREENER 0445--SPOKE WITH JAYLA FROM [facility], WILL BE IN TO SEE PT 0520--JAYLA HERE TO SEE PT. 0550--PT HAS REFUSED TO SIGN SAFETY AGREEMENT FOR SCREENER, SO NOW ATTEMPTING TO FIND INPATIENT PSYCH BED 0610--FEMALE BED HAS BEEN LOCATED AT [facility]. INFORMATION IS BEING FAXED 0624--[facility] STATES CURRENT SCREENER IS REVIEWING PTS' INFORMATION NOW. OTHERWISE IT WILL BE AFTER 0900 BEFORE ANOTHER SCREENER WILL BE THERE. THEY HAVE INFORMED THE RN AND MYSELF THAT THEY ARE VERY FAMILIAR WITH PT. 0636--SPOKE WITH DR. TAVERA, PSYCHIATRIST, WHO ACCEPTS PT FOR ADMIT. 0640--CONTACTED THONG MURRY FOR SECURE TRANSPORT, HE IS ALSO VERY FAMILIAR WITH PT. Impression Impression: Primary Impression: Suicidal ideations Disposition: 65 XFER TO PSYCH HOSP/UNIT Condition: Stable Departure-Patient Inst. Referrals: [facility] (PCP) Primary Care Physician BLAS BAJWA PhD (Family) Primary Care Physician DAVID DUNBAR DO May 20, 2017 05:46
[2017-05-20 07:13] VITALS: BP 129/61
== END 2017-05-20 07:13 ==
LOC: EDUNIT# 02:00 → ER 02:02
DX: R45.851 Suicidal ideations (principal); F41.9 Anxiety disorder, unspecified; G43.909 Migraine, unspecified, not intractable, without status migrainosus; F31.9 Bipolar disorder, unspecified; E03.9 Hypothyroidism, unspecified; F20.9 Schizophrenia, unspecified; Z91.5 Personal history of self-harm; Z88.8 Allergy status to other drugs, medicaments and biological substances
CPT/HCPCS: 36415; 80053; 80164; 80306; 80320; 80329; 81000; 84443; 84703; 85025; 93005; 93041

== ENCOUNTER 2017-07-14 23:04 | Emergency (ER) | payer SELFPAY ==
[~2017-07-14] VITALS: Ht 160 cm; Wt 102.6 kg
[~2017-07-14 23:04] MED LIST changes: +LORA0.5T PO
[2017-07-14] MEDS ORDERED: PALI1.5T PO (23:09)
[2017-07-14] MEDS ORDERED: ZIPRASIDONE 20 MG (GEODON) CAP PO ONE (23:46)
--- NOTE | 2017-07-14 23:52 | ED Psychosocial ---
General Chief Complaint: Psych/Social Disorder Stated Complaint: MEDICATION COMPLICATIONS Nursing Triage Note: brought in by [facility] for c/o palpatations, anxiety. seen in e.d. for same pt reports not taking ativan. Source: patient History of Present Illness Date Seen by Provider: July 14, 2017 Time Seen by Provider: 23:30 Initial Comments PT ARRIVES VIA EMS FROM HOME PT STATES "I THOUGHT SOMETHING WAS WRONG WITH MY HEART, BUT NOW I KNOW IT'S NOT " "MY HEART'S FINE AND MY BREATHING'S FINE" PT STATES SHE HAS BEEN HAVING FEELING OF SUDDEN ONSET OF FEELING LIKE HER HEART IS BEATING FAST AND SHE SUDDENLY FEELS VERY ANXIOUS--SYMPTOMS ONGOING FOR A FEW DAYS SEEN HERE FOR THIS SAME PROBLEM. GIVEN RX FOR LORAZEPAM #10. PT WITH EXTENSIVE PSYCH HISTORY. PT STATES "I'VE BEEN FEELING SCHIZOPHRENIC LATELY" ( FOR AT LEAST THE LAST 3 WEEKS) AND WAS ADMITTED AT [facility] IN ACCORD FROM 06/30-07/07/17. STATES THEY ONLY MEDICATION CHANGE WAS THAT THEY ADDED ABILIFY TO HER REGULAR MEDICATIONS PT STATES SHE FOLLOWED UP WITH Toshia BAJWA AT [facility] 5 DAYS AGO, AND ABILIFY WAS STOPPED --"BECAUSE IT WASN'T HELPING" , PER PT--AND INVEGA STARTED PT STATES SINCE SHE STARTED INVEGA SHE HAS HAD INCREASE IN ANXIETY AND PANIC ATTACKS PT STATES "DERICK DID THE TRICK" WHEN SHE WAS ON IT IN THE PAST, AND HELPED WITH ALL OF HER SYMPTOMS, BUT IT WAS DC'D "BECAUSE I THOUGHT IT WAS GIVING ME WEIRD SIDE EFFECTS, BUT THEN I FOUND OUT IT WASN'T" PER PT. STATES NO ONE HAS TRIED TO RESTART IT. PT STATES HER CURRENT MEDICATIONS ARE INVEGA, DEPAKOTE, PROZAC AND SYNTHROID PT HAS AN APPOINTMENT WITH Toshia BAJWA TOMORROW FOR FOLLOW UP PT STATES SHE DOES NOT HAVE A WOODWORKING MACHINE OPERATOR OR A THERAPIST AT [facility]. PT STATES SHE USED TO HAVE A THERAPIST AT [facility], BUT HAS NOT BEEN THERE IN MONTHS. PCP: [facility], USED TO SEE NATIONAL SALES ASSOCIATE DARI CASTRO. HAS NOT BEEN THERE IN SEVERAL MONTHS Allergies and Home Medications Allergies Coded Allergies: haloperidol (Verified Allergy, Mild, 12/16/14) Home Medications Divalproex Sodium 500 Mg Tab.er.24h, 1,000 MG PO HS, (Reported) TAKES 2 (500MG) TABLETS Fluoxetine HCl 20 Mg Capsule, 20 MG PO HS, (Reported) Levothyroxine Sodium 25 Mcg Tablet, 25 MCG PO DAILY, (Reported) Lorazepam 0.5 Mg Tablet, 0.5 MG PO BID PRN for ANXIETY Prescribed by: DANI MARTIN on 07/11/171923 Patient Home Medication List Home Medication List Reviewed: Yes Constitutional: no symptoms reported Respiratory: see HPI Cardiovascular: see HPI Gastrointestinal: no symptoms reported Genitourinary: no symptoms reported : No (ON DEPO-PROVERA X 1 YEAR. NO PERIOD SINCE SHE STARTED IT. ) Control/STD Prophylaxis: Depo Provera Musculoskeletal: no symptoms reported Skin: no symptoms reported Psychiatric/Neurological: See HPI, Anxiety, Emotional Problems Past Qtojzxz-Fophyc-Exohkl Hx Patient Social History Alcohol Use: Denies Use Recreational Drug Use: No Smoking Status: Never a Smoker 2nd Hand Smoke Exposure: No Recent Foreign Travel: No Contact w/Someone Who Travel: No Recent Infectious Disease Expo: No Recent Hopitalizations: No Immunizations Up To Date Tetanus Booster (TDap): Unknown Seasonal Allergies Seasonal Allergies: No Past Medical History Surgeries: No Respiratory: No Cardiac: No Neurological: Yes Headaches /Migraines : No Reproductive Disorders: No Female Reproductive Disorders: Denies Genitourinary: No Gastrointestinal: No Musculoskeletal: No Endocrine: Yes Hypothyroidsim HEENT: No Cancer: No Psychosocial: Yes (SUICIDAL IDEATIONS) Anxiety, Suicide Attempts, Bipolar, Schizophrenia, Depression Integumentary: No Blood Disorders: No Family Medical History Asthma 19 MOTHER No Pertinent Family Hx Physical Exam Vital Signs Vital Signs - First Documented 07/14/17 23:04 Temp 97.3 Pulse 83 Resp 16 B/P (MAP) 126/87 (100) Pulse Ox 98 O2 Delivery Room Air Capillary Refill : Less Than 3 Seconds General Appearance: obese, other (CRYING UNCONTROLLABLY. 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, no motor/sensory deficits, alert, oriented x 3 Appearance/Memory: no memory impairment Behavior/Eye Contact: cooperative, good eye contact, normal speech Thoughts/Hallucinations: no apparent hallucination, other (NO SUICIDAL IDEATIONS) Skin: normal color, warm/dry Progress/Results/Core Measures Results/Orders My Orders Orders - DAVID DUNBAR DO Ziprasidone Capsule (Geodon Capsule) (07/15/17 00:00) Ziprasidone Capsule (Geodon Capsule) (07/14/17 23:46) Medications Given in ED Current Medications Medications Dose Ordered Sig/Tierney Route Start Time Stop Time Status Last Admin Dose Admin Ziprasidone 20 mg ONCE ONCE PO 07/15/17 00:00 07/15/17 00:00 DC 07/14/17 23:54 20 MG Vital Signs/I&O 07/14/17 07/14/17 23:04 23:56 Temp 97.3 97.3 Pulse 83 72 Resp 16 16 B/P (MAP) 126/87 (100) 115/82 (100) Pulse Ox 98 98 O2 Delivery Room Air Room Air Blood Pressure Mean: 100 Progress Progress Note : Progress Note PT DECLINES ANY TESTS, STATING "NOW I KNOW IT'S NOT MY HEART" AND PT IS CALMER. PT WAS GIVEN GEODON X 1 IN ER PRIOR TO DISMISSAL. NO DETERIORATION IN PT'S CONDITION DURING ER STAY Departure Impression Primary Impression: Anxiety Additional Impression: Hx of schizophrenia Disposition: 01 HOME, SELF-CARE Condition: Improved Departure-Patient Inst. Referrals: [facility] (PCP) Primary Care Physician BLAS BAJWA PhD (Family) Primary Care Physician Patient Instructions: Anxiety, Adult (DC) Add. Discharge Instructions: TAKE YOUR MEDICATIONS PRESCRIBED KEEP YOUR APPOINTMENT WITH CONCEPCION BAJWA TOMORROW SCHEDULED ESTABLISH WITH WOODWORKING MACHINE OPERATOR AND THERAPIST WITH [facility] THIS WEEK FOLLOW UP WITH [facility] THIS WEEK FOR FURTHER CARE WELL All discharge instructions reviewed with patient and/or family. Voiced understanding. DAVID DUNBAR DO July 14, 2017 23:52
[2017-07-14 23:56] VITALS: BP 115/82
[2017-07-15] MEDS ORDERED: ZIPRASIDONE 20 MG (GEODON) CAP PO ONE
== END 2017-07-14 23:56 | disposition home or self-care (01) ==
LOC: EDUNIT# 23:04 → ER 23:06
DX: F41.0 Panic disorder [episodic paroxysmal anxiety] (principal); F20.9 Schizophrenia, unspecified; G43.909 Migraine, unspecified, not intractable, without status migrainosus; E03.9 Hypothyroidism, unspecified; F31.9 Bipolar disorder, unspecified; Z91.5 Personal history of self-harm; Z88.8 Allergy status to other drugs, medicaments and biological substances
CPT/HCPCS: 99283

== ENCOUNTER 2017-09-20 03:58 | Emergency (ER) | payer SELFPAY ==
[~2017-09-20] VITALS: Ht 160 cm; Wt 111.1 kg
[~2017-09-20 03:58] MED LIST changes: +PALI1.5T PO
--- OUTSIDE RECORDS SUMMARY | 2017-09-20 04:06 | XMS REPORT ---
Author Author BLAS BAJWA Organization [facility] Address [address] [place] [address] Care Team Providers Care Grommet Worker Name Role Phone AYDEE BLAS Unavailable PROBLEMS Type Condition ICD9-CM Code [id number] Code Onset Dates Condition Status SNOMED Code Problem Breakthrough bleeding on depo provera N92.1 Active 96470065 Problem Borderline personality disorder F60.3 Active 46435688 Problem Schizoaffective disorder, unspecified condition F25.9 Active 58474704 Problem Establishing care with new doctor, encounter for Z71.89 Active 160407713 Problem Bipolar depression F31.30 Active 09900659 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 82719788 Problem Overweight E66.3 Active 759987941 ALLERGIES No Information ENCOUNTERS Encounter Location Date Diagnosis [facility] [id number] [place] [address] 84525- 5925 21 Apr, 2017 Schizoaffective disorder, unspecified condition F25.9 and Borderline personality disorder F60.3 [facility] [id number] [place] [address] 64375- 7385 14 Apr, 2017 Bipolar depression F31.30 ; Overweight E66.3 ; Schizoaffective disorder, unspecified condition F25.9 and Borderline personality disorder F60.3 [facility] [address] [address] Mar, Borderline personality disorder F60.3 ; Schizoaffective disorder, unspecified condition F25.9 ; Bipolar depression F31.30 and Overweight E66.3 [facility] [address] [address] 17 Mar, 2017 Schizoaffective disorder, unspecified condition F25.9 and Borderline personality disorder F60.3 [facility] [id number] [place] [address] 49363- 9991 Mar, Schizoaffective disorder, unspecified condition F25.9 and Borderline personality disorder F60.3 [facility] [id number] [place] [address] 30264- 1949 Jan, Schizoaffective disorder, unspecified condition F25.9 and Borderline personality disorder F60.3 [facility] [address] 52724- 5779 Jan, Schizoaffective disorder, unspecified condition F25.9 and Borderline personality disorder F60.3 [place] [address] 77244- 5432 Jan, [facility] [address] 03815- 2236 Jan, Schizoaffective disorder, unspecified condition F25.9 and Borderline personality disorder F60.3 [facility] [id number] [place] [address] 50129 -1560 Jan, Vaginal itching L29.8 and Vaginal carlos B37.3 [place] [address] 72395- 5530 Jan, Schizoaffective disorder, unspecified condition F25.9 and Borderline personality disorder F60.3 [place] [id number] [place] [address] 42135- 3997 Jan, Bipolar depression F31.30 [facility] [id number] [place] [address] 48669- 3542 Jan, Bipolar depression F31.30 [facility] [address] [id number] Dec, [facility] [id number] [place] [address] 87231 -3264 Dec, 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 [facility] [address] 35343- 4837 Oct, Nausea R11.0 [facility] [id number] [place] [address] 66109- 0901 Oct, Encounter for test, result unknown Z32.00 [facility] [id number] [place] [address] 15979- 3509 July, Bipolar depression F31.30 and Overweight E66.3 [place] [address] 28998- 5059 Jun, Establishing care with new doctor, encounter for Z71.89 [place] [id number] [place] [address] 45650- 2706 May, Establishing care with new doctor, encounter for Z71.89 ; Overweight E66.3 and Bipolar depression F31.30 [place] [id number] [place] [address] 58429- 8616 May, [facility] [id number] [place] [address] 83618- 0192 May, [place] [id number] [place] [address] 44901- 4518 May, [facility] [id number] [place] [address] 78482- 5125 May, Encounter for Depo-Provera contraception Z30.42 [facility] [id number] [place] [address] 09360- 5493 Jan, Encounter for Depo-Provera contraception Z30.42 [facility] [id number] [place] [address] 60166 -5931 Jan, Breakthrough bleeding on depo provera N92.1 [facility] [id number] [place] [address] 73667- 2212 03 Dec, 2015 Encounter for other general counseling and advice on contraception Z30.09 and Encounter for Depo-Provera contraception Z30.42 [place] [address] [place] [address] 5849 29 Nov, 2014 control counseling V25.09 [facility] [id number] [place] [address] 99200- 5648 14 Nov, 2014 Unspecified episodic mood disorder 296.90 ; Anxiety state, unspecified 300.00 and [place] II diagnosis deferred 799.9 [facility] [id number] [place] [address] 79906- 8343 09 Nov, 2014 Elevated liver enzymes 790.5 and Elevated prolactin level 259.9 [facility] [id number] [place] [address] 20404- 7460 Nov, [facility] [id number] [place] [address] 35627- 2887 Oct, Routine general medical examination at health care facility V70.0 [facility] [id number] [place] [address] 24254- 0069 Mar, [facility] [id number] [place] [address] 45930- 8820 Mar, [facility] [id number] [place] [address] 88300- 1849 Jan, [facility] [id number] [place] [address] 81589- 3963 Jan, [facility] [id number] [place] [address] 09599- 2927 Oct, IMMUNIZATIONS No Known Immunizations SOCIAL HISTORY Never Assessed REASON FOR VISIT BH f/u, Depression. PLAN OF CARE Activity Details Follow Up 2 Weeks Reason:mood VITAL SIGNS MEDICATIONS Unknown Medications RESULTS No Results PROCEDURES Procedure Date Ordered Result Body Site Psychotherapy, patient &/family, 30 minutes, established patient Apr 23, 2017 INSTRUCTIONS MEDICATIONS ADMINISTERED No Known Medications MEDICAL (GENERAL) HISTORY Type Description Date Medical History schizoaffective disorder Medical History borderline personality disorder Hospitalization History 5 times in 2014 for mental health Hospitalization History [facility] #2 for suicide thoughts 07/2016 Hospitalization History intentional overdose, suicide attempt-[facility] [place] 12/28/2016
--- OUTSIDE RECORDS SUMMARY | 2017-09-20 04:06 | XMS REPORT ---
Author Author BLAS BAJWA Organization [facility] Address [address] [place] [address] Care Team Providers Care Professor Of Communication Name Role Phone AYDEE BLAS Unavailable PROBLEMS Type Condition ICD9-CM Code [id number] Code Onset Dates Condition Status SNOMED Code Problem Breakthrough bleeding on depo provera N92.1 Active 90864067 Problem Borderline personality disorder F60.3 Active 83293313 Problem Schizoaffective disorder, unspecified condition F25.9 Active 55627478 Problem Establishing care with new doctor, encounter for Z71.89 Active 268368889 Problem Bipolar depression F31.30 Active 75423784 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 25563945 Problem Overweight E66.3 Active 981679801 ALLERGIES No Information ENCOUNTERS Encounter Location Date Diagnosis [facility] [address] [place] [address] 68019- 6838 21 Apr, 2017 Schizoaffective disorder, unspecified condition F25.9 and Borderline personality disorder F60.3 [facility] [address] [place] [address] 25777- 2384 14 Apr, 2017 Bipolar depression F31.30 ; Overweight E66.3 ; Schizoaffective disorder, unspecified condition F25.9 and Borderline personality disorder F60.3 [facility] [address] [address] 2017 Borderline personality disorder F60.3 ; Schizoaffective disorder, unspecified condition F25.9 ; Bipolar depression F31.30 and Overweight E66.3 [facility] [address] [address]- 1289 17 Mar, 2017 Schizoaffective disorder, unspecified condition F25.9 and Borderline personality disorder F60.3 [facility] [id number] [place] [address] 70481- 5959 Mar, Schizoaffective disorder, unspecified condition F25.9 and Borderline personality disorder F60.3 [facility] [id number] [place] [address] 78773- 0503 Jan, Schizoaffective disorder, unspecified condition F25.9 and Borderline personality disorder F60.3 [facility] [address] 95650- 7223 Jan, Schizoaffective disorder, unspecified condition F25.9 and Borderline personality disorder F60.3 [place] [address] 54626- 8588 Jan, [facility] [address] 75184- 2464 Jan, Schizoaffective disorder, unspecified condition F25.9 and Borderline personality disorder F60.3 [facility] [id number] [place] [address] 30761 -2638 Jan, Vaginal itching L29.8 and Vaginal carlos B37.3 [place] [address] 60222- 8564 Jan, Schizoaffective disorder, unspecified condition F25.9 and Borderline personality disorder F60.3 [place] [id number] [place] [address] 77311- 9871 Jan, Bipolar depression F31.30 [facility] [id number] [place] [address] 66506- 2940 Jan, Bipolar depression F31.30 [facility] [address] [id number] Dec, [facility] [id number] [place] [address] 97831 -5934 Dec, 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 [facility] [address] 40785- 8265 Oct, Nausea R11.0 [facility] [id number] [place] [address] 95511- 5197 Oct, Encounter for test, result unknown Z32.00 [facility] [id number] [place] [address] 42994- 0954 July, Bipolar depression F31.30 and Overweight E66.3 [place] [address] 57840- 7224 Jun, Establishing care with new doctor, encounter for Z71.89 [place] [id number] [place] [address] 24353- 0555 May, Establishing care with new doctor, encounter for Z71.89 ; Overweight E66.3 and Bipolar depression F31.30 [place] [id number] [place] [address] 96820- 4484 May, [facility] [id number] [place] [address] 50536- 3154 May, [place] [id number] [place] [address] 82531- 1734 May, [facility] [id number] [place] [address] 32258- 8463 May, Encounter for Depo-Provera contraception Z30.42 [facility] [id number] [place] [address] 90154- 1818 Jan, Encounter for Depo-Provera contraception Z30.42 [facility] [id number] [place] [address] 52526 -5880 Jan, Breakthrough bleeding on depo provera N92.1 [facility] [id number] [place] [address] 61390- 9898 03 Dec, 2015 Encounter for other general counseling and advice on contraception Z30.09 and Encounter for Depo-Provera contraception Z30.42 [place] [address] [place] [address]- 2097 29 Nov, 2014 control counseling V25.09 [facility] [id number] [place] [address] 43739- 9241 14 Nov, 2014 Unspecified episodic mood disorder 296.90 ; Anxiety state, unspecified 300.00 and [place] II diagnosis deferred 799.9 [facility] [id number] [place] [address] 55194- 0728 09 Nov, 2014 Elevated liver enzymes 790.5 and Elevated prolactin level 259.9 [facility] [id number] [place] [address] 45969- 9975 Nov, [facility] [id number] [place] [address] 33124- 0546 Oct, Routine general medical examination at health care facility V70.0 [facility] [id number] [place] [address] 80028- 8233 Mar, [facility] [id number] [place] [address] 38764- 3454 Mar, [facility] [id number] [place] [address] 48180- 9391 Jan, [facility] [id number] [place] [address] 10121- 8878 Jan, [facility] [address] [place] [address] 84245- 9678 Oct, IMMUNIZATIONS No Known Immunizations SOCIAL HISTORY Never Assessed REASON FOR VISIT BH f/u, Depression. PLAN OF CARE Activity Details Follow Up Next available Reason:depression VITAL SIGNS MEDICATIONS Unknown Medications RESULTS No Results PROCEDURES Procedure Date Ordered Result Body Site Psychotherapy, patient &/family, 30 minutes, established patient Feb 11, 2017 INSTRUCTIONS MEDICATIONS ADMINISTERED No Known Medications MEDICAL (GENERAL) HISTORY Type Description Date Medical History schizoaffective disorder Medical History borderline personality disorder Hospitalization History 5 times in 2014 for mental health Hospitalization History [facility] #2 for suicide thoughts 07/2016 Hospitalization History intentional overdose, suicide attempt-[facility] 12/28/2016
--- OUTSIDE RECORDS SUMMARY | 2017-09-20 04:06 | XMS REPORT ---
Author Author BLAS BAJWA Organization [facility] Address [address] [place] [address] Care Team Providers Care Base Brander Name Role Phone AYDEE BLAS Unavailable PROBLEMS Type Condition ICD9-CM Code GMF10-RW Code Onset Dates Condition Status SNOMED Code Problem Breakthrough bleeding on depo provera N92.1 Active 86673384 Problem Borderline personality disorder F60.3 Active 00531431 Problem Schizoaffective disorder, unspecified condition F25.9 Active 01527209 Problem Establishing care with new doctor, encounter for Z71.89 Active 279633956 Problem Bipolar depression F31.30 Active 83002416 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 51839752 Problem Overweight E66.3 Active 279491881 ALLERGIES No Information ENCOUNTERS Encounter Location Date Diagnosis [facility] [address] [place] [address] 19022- 1943 21 Apr, 2017 Schizoaffective disorder, unspecified condition F25.9 and Borderline personality disorder F60.3 [facility] [address] [place] [address] 59046- 2939 14 Apr, 2017 Bipolar depression F31.30 ; Overweight E66.3 ; Schizoaffective disorder, unspecified condition F25.9 and Borderline personality disorder F60.3 [facility] [address] [address]- 8[address] Mar, Borderline personality disorder F60.3 ; Schizoaffective disorder, unspecified condition F25.9 ; Bipolar depression F31.30 and Overweight E66.3 [facility] [address] [address]- 1519 17 Mar, 2017 Schizoaffective disorder, unspecified condition F25.9 and Borderline personality disorder F60.3 [facility] [id number] [place] [address] 59633- 9579 Mar, Schizoaffective disorder, unspecified condition F25.9 and Borderline personality disorder F60.3 [facility] [id number] [place] [address] 12176- 0887 Jan, Schizoaffective disorder, unspecified condition F25.9 and Borderline personality disorder F60.3 [facility] [address] 51612- 0868 Jan, Schizoaffective disorder, unspecified condition F25.9 and Borderline personality disorder F60.3 [place] [address] 54776- 7095 Jan, [facility] [address] 80202- 5917 Jan, Schizoaffective disorder, unspecified condition F25.9 and Borderline personality disorder F60.3 [facility] [id number] [place] [address] 37632 -0114 Jan, Vaginal itching L29.8 and Vaginal carlos B37.3 [place] [address] 55869- 0626 Jan, Schizoaffective disorder, unspecified condition F25.9 and Borderline personality disorder F60.3 [place] [id number] [place] [address] 87142- 1664 Jan, Bipolar depression F31.30 [facility] [id number] [place] [address] 07084- 9559 Jan, Bipolar depression F31.30 [facility] [address] [id number] Dec, [facility] [id number] [place] [address] 95147 -1338 Dec, 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 [facility] [address] 31066- 1518 Oct, Nausea R11.0 [facility] [id number] [place] [address] 34331- 8600 Oct, Encounter for test, result unknown Z32.00 [facility] [id number] [place] [address] 34084- 3446 July, Bipolar depression F31.30 and Overweight E66.3 [place] [address] 59764- 2860 Jun, Establishing care with new doctor, encounter for Z71.89 [place] [id number] [place] [address] 42311- 2412 May, Establishing care with new doctor, encounter for Z71.89 ; Overweight E66.3 and Bipolar depression F31.30 [place] [id number] [place] [address] 58800- 1181 May, [facility] [id number] [place] [address] 33553- 4358 May, [place] [id number] [place] [address] 99199- 8853 May, [facility] [id number] [place] [address] 89809- 3589 May, Encounter for Depo-Provera contraception Z30.42 [facility] [id number] [place] [address] 58291- 0382 Jan, Encounter for Depo-Provera contraception Z30.42 [facility] [id number] [place] [address] 22079 -6375 Jan, Breakthrough bleeding on depo provera N92.1 [facility] [id number] [place] [address] 00014- 2744 03 Dec, 2015 Encounter for other general counseling and advice on contraception Z30.09 and Encounter for Depo-Provera contraception Z30.42 [place] [address] [place] [address]- 8241 29 Nov, 2014 control counseling V25.09 [facility] [id number] [place] [address] 33870- 1542 14 Nov, 2014 Unspecified episodic mood disorder 296.90 ; Anxiety state, unspecified 300.00 and [place] II diagnosis deferred 799.9 [facility] [id number] [place] [address] 21936- 2090 09 Nov, 2014 Elevated liver enzymes 790.5 and Elevated prolactin level 259.9 [facility] [id number] [place] [address] 75690- 0768 Nov, [facility] [id number] [place] [address] 82887- 1647 Oct, Routine general medical examination at health care facility V70.0 [facility] [id number] [place] [address] 98016- 4757 Mar, [facility] [id number] [place] [address] 26572- 2904 Mar, [facility] [id number] [place] [address] 89991- 9825 Jan, [facility] [id number] [place] [address] 83322- 4267 Jan, [facility] [id number] [place] [address] 14789- 7188 Oct, IMMUNIZATIONS No Known Immunizations SOCIAL HISTORY Never Assessed REASON FOR VISIT BH f/u, Depression. PLAN OF CARE Activity Details Follow Up 2 Weeks Reason:mood VITAL SIGNS MEDICATIONS Unknown Medications RESULTS No Results PROCEDURES Procedure Date Ordered Result Body Site Psych diagnostic evaluation w/medical services, established patient Mar 19, 2017 INSTRUCTIONS MEDICATIONS ADMINISTERED No Known Medications MEDICAL (GENERAL) HISTORY Type Description Date Medical History schizoaffective disorder Medical History borderline personality disorder Hospitalization History 5 times in 2014 for mental health Hospitalization History [facility] for suicide thoughts 07/2016 Hospitalization History intentional overdose, suicide attempt-[facility] 12/28/2016
--- OUTSIDE RECORDS SUMMARY | 2017-09-20 04:07 | XMS REPORT ---
Author Author INO MERRILL Organization [facility] Address [address] 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 63394607 Problem Overweight E66.3 Active 550407277 ALLERGIES No Information ENCOUNTERS Encounter Location Date Diagnosis [facility] [address], [place] [address] Apr, Schizoaffective disorder, unspecified condition F25.9 and Borderline personality disorder F60.3 [facility] [address], [place] [address] 14 Apr, 2017 Bipolar depression F31.30 ; Overweight E66.3 ; Schizoaffective disorder, unspecified condition F25.9 and Borderline personality disorder F60.3 [facility] [address], [place] [address] Mar, Borderline personality disorder F60.3 ; Schizoaffective disorder, unspecified condition F25.9 ; Bipolar depression F31.30 and Overweight E66.3 [facility] [address] [address] 17 Mar, 2017 Schizoaffective disorder, unspecified condition F25.9 and Borderline personality disorder F60.3 [facility] [id number] [place] [address] 29698- 4644 Mar, Schizoaffective disorder, unspecified condition F25.9 and Borderline personality disorder F60.3 [facility] [id number] [place] [address]87- 1659 Jan, Schizoaffective disorder, unspecified condition F25.9 and Borderline personality disorder F60.3 [facility] [address] [address] Jan, Schizoaffective disorder, unspecified condition F25.9 and Borderline personality disorder F60.3 [place] [address] [address] Jan, [facility] [address] [address] Jan, Schizoaffective disorder, unspecified condition F25.9 and Borderline personality disorder F60.3 [facility] [id number] [place] [address] Jan, Vaginal itching L29.8 and Vaginal carlos B37.3 [place] [address] [address] 16 Jan, 2017 Schizoaffective disorder, unspecified condition F25.9 and Borderline personality disorder F60.3 [place] [id number] [place] [address] 24532- 2252 Jan, Bipolar depression F31.30 [facility] [id number] [place] [address] 97832- 7434 Jan, Bipolar depression F31.30 [facility] [address] [id number] Dec, [facility] [address] [address] 09 Dec, 2016 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 [facility] [address] [address] Oct, Nausea R11.0 [facility] [id number] [place] [address] 61877- 6117 Oct, Encounter for test, result unknown Z32.00 [facility] [id number] [place] [address] 12025- 9103 July, Bipolar depression F31.30 and Overweight E66.3 [facility] [address] [address] Jun, Establishing care with new doctor, encounter for Z71.89 [place] [id number] [place] [address] 09311- 4813 May, Establishing care with new doctor, encounter for Z71.89 ; Overweight E66.3 and Bipolar depression F31.30 [place] [id number] [place] [address] 48922- 0488 May, [facility] [id number] [place] [address] 88834- 0432 May, [place] [id number] [place] [address] 50439- 0418 May, [facility] [id number] [place] [address] 54633- 4191 May, Encounter for Depo-Provera contraception Z30.42 [facility] [id number] [place] [address] 42683- 5727 Jan, Encounter for Depo-Provera contraception Z30.42 [facility] [id number] [place] [address] 69723 -8159 Jan, Breakthrough bleeding on depo provera N92.1 [facility] [id number] [place] [address] 22571- 7563 03 Dec, 2015 Encounter for other general counseling and advice on contraception Z30.09 and Encounter for Depo-Provera contraception Z30.42 [place] [address] [place] [address] 29 Nov, 2014 control counseling V25.09 [facility] [id number] [place] [address] 33153- 2415 14 Nov, 2014 Unspecified episodic mood disorder 296.90 ; Anxiety state, unspecified 300.00 and [place] II diagnosis deferred 799.9 [facility] [id number] [place] [address] 13706- 2804 09 Nov, 2014 Elevated liver enzymes 790.5 and Elevated prolactin level 259.9 [facility] [id number] [place] [address] 45208- 2848 Nov, [facility] [id number] [place] [address] 16955- 7407 Oct, Routine general medical examination at health care facility V70.0 [facility] [id number] [place] [address] 26291- 8294 Mar, [facility] [id number] [place] [address] 60393- 9563 Mar, [facility] [id number] [place] [address] 07442- 0818 Jan, [facility] [id number] [place] [address] 22656- 9695 Jan, [facility] [address] [place] [address] 28306- 1062 Oct, IMMUNIZATIONS No Known Immunizations SOCIAL HISTORY Never Assessed REASON FOR VISIT Requests return call PLAN OF CARE VITAL SIGNS MEDICATIONS Unknown Medications RESULTS No Results PROCEDURES No Known procedures INSTRUCTIONS MEDICATIONS ADMINISTERED No Known Medications MEDICAL (GENERAL) HISTORY Type Description Date Medical History schizoaffective disorder Medical History borderline personality disorder Hospitalization History 5 times in 2014 for mental health Hospitalization History [facility] Unit #2 for suicide thoughts 07/2016 Hospitalization History intentional overdose, suicide attempt-[facility] 12/28/2016
--- OUTSIDE RECORDS SUMMARY | 2017-09-20 04:07 | XMS REPORT ---
Author Author VARSHA Khan Organization [facility] Address [address] [place] [address] Care Team Providers Care Waxer Operator Name Role Phone ronniFABIO VARSHA Unavailable PROBLEMS Type Condition ICD9-CM Code TFD90-QX Code Onset Dates Condition Status SNOMED Code Problem Breakthrough bleeding on depo provera N92.1 Active 03358887 Problem Borderline personality disorder F60.3 Active 61864526 Problem Schizoaffective disorder, unspecified condition F25.9 Active 90691821 Problem Establishing care with new doctor, encounter for Z71.89 Active 240928750 Problem Bipolar depression F31.30 Active 17134425 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 54692799 Problem Overweight E66.3 Active 219094078 ALLERGIES Substance Reaction Event Type Date Status Haldol Unknown Drug Allergy Oct, Active BuSpar More anxious, depressed and suicidal Drug Allergy Oct, Active ENCOUNTERS Encounter Location Date Diagnosis [facility] [address] [place] [address] 73098- [address] 21 Apr, 2017 Schizoaffective disorder, unspecified condition F25.9 and Borderline personality disorder F60.3 [facility] [address] [place] [address] 15365- 3653 14 Apr, 2017 Bipolar depression F31.30 ; Overweight E66.3 ; Schizoaffective disorder, unspecified condition F25.9 and Borderline personality disorder F60.3 [facility] [address] [place] [address] 14464- 3041 2017 Borderline personality disorder F60.3 ; Schizoaffective disorder, unspecified condition F25.9 ; Bipolar depression F31.30 and Overweight E66.3 [facility] [address] [place] [address] 12529- 9420 Mar, Schizoaffective disorder, unspecified condition F25.9 and Borderline personality disorder F60.3 [facility] [id number] [place] [address] 02686- 7352 Mar, Schizoaffective disorder, unspecified condition F25.9 and Borderline personality disorder F60.3 [facility] [id number] [place] [address] 96483- 8732 Jan, Schizoaffective disorder, unspecified condition F25.9 and Borderline personality disorder F60.3 [facility] [address] [address]- [address]9 Jan, Schizoaffective disorder, unspecified condition F25.9 and Borderline personality disorder F60.3 [facility] [id number] [place] [address] 62187- 4214 Jan, [facility] [address] 67114- 8749 Jan, Schizoaffective disorder, unspecified condition F25.9 and Borderline personality disorder F60.3 [facility] [address] [address] Jan, Vaginal itching L29.8 and Vaginal carlos B37.3 [facility] [id number] [place] [address] 97143- 1299 Jan, Schizoaffective disorder, unspecified condition F25.9 and Borderline personality disorder F60.3 [facility] [id number] [place] [address] 01578- 9619 Jan, Bipolar depression F31.30 [facility] [address] 62241- 3398 Jan, Bipolar depression F31.30 [facility] [id number] [place] [address] [id number] Dec, [facility] [address] [address] Dec, 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 [facility] [id number] [place] [address] 96335- 5913 Oct, Nausea R11.0 [facility] [id number] [place] [address] 47533- 5653 Oct, Encounter for test, result unknown Z32.00 [facility] [address] 470[address]- 5002 July, Bipolar depression F31.30 and Overweight E66.3 [place] [address] [address]- 2812 Jun, Establishing care with new doctor, encounter for Z71.89 [place] [address] 34565- 7705 May, Establishing care with new doctor, encounter for Z71.89 ; Overweight E66.3 and Bipolar depression F31.30 [facility] [id number] [place] [address] 99360- 8997 May, [facility] [address] 51455- 4912 May, [facility] [id number] [place] [address] 89682- 4568 May, [facility] [address] 11478- 1736 May, Encounter for Depo-Provera contraception Z30.42 [facility] [id number] [place] [address] 20257- 8886 Jan, Encounter for Depo-Provera contraception Z30.42 [facility] [id number] [place] [address] 17856 -6323 Jan, Breakthrough bleeding on depo provera N92.1 [facility] [address] 95613- 9798 Dec, Encounter for other general counseling and advice on contraception Z30.09 and Encounter for Depo-Provera contraception Z30.42 [facility] [id number] [place] [address] 20229- 7262 29 Nov, 2014 control counseling V25.09 [facility] [id number] [place] [address] 32658- 8099 14 Nov, 2014 Unspecified episodic mood disorder 296.90 ; Anxiety state, unspecified 300.00 and [place] II diagnosis deferred 799.9 [facility] [id number] [place] [address] 78795- 6454 09 Nov, 2014 Elevated liver enzymes 790.5 and Elevated prolactin level 259.9 [place] [id number] [place] [address] 37242- 2512 02 Nov, 2014 [place] [id number] [place] [address] 29249- 3612 Oct, Routine general medical examination at [facility] care facility V70.0 [place] [id number] [place] [address] 48006- 4610 Mar, [place] [id number] [place] [address] 56113- 2057 Mar, [place] [id number] [place] [address] 38974- 0251 Jan, [place] [id number] [place] [address] 02641- 1589 Jan, [place] [id number] [place] [address] 43234- 5284 Oct, IMMUNIZATIONS No Known Immunizations SOCIAL HISTORY Never Assessed REASON FOR VISIT Vomiting, PT was seen in the ER and was told she just had a headache. Eye pain and pressure, diarrhia for over a month- Mae GALINDO PLAN OF CARE Activity Details Follow Up 4 Weeks, prn Reason:nausea VITAL SIGNS Height 64.5 in 2016-10-22 Weight 218.5 lbs 2016-10-22 Temperature 97.6 degrees Fahrenheit 2016-10-22 Heart Rate 78 bpm 2016-10-22 Respiratory Rate 18 2016-10-22 BMI 36.92 kg/m2 2016-10-22 Blood pressure systolic 110 mmHg 2016-10-22 Blood pressure diastolic 76 mmHg 2016-10-22 MEDICATIONS Medication Instructions Dosage Frequency Start Date End Date Duration Status Nada Carbonate 300 MG Orally 4 times a day 1 capsule 6h Active Depo-Provera 150 MG/ML Intramuscular once every 90 days 1 ml Not -Taking Abilify 2 MG Orally Once a day 1 tablet 24h Not-Taking Zantac 75 75 MG Orally Twice a day 1 tablet as needed 12h Oct, Active Abilify 9.75 MG/1.3ML Intramuscular once per month 2 ml Not- Taking Celexa 20 MG Orally Once a day 1 tablet 24h Not-Taking Risperidone 2 MG Orally Once a day 1 tablet 24h Not-Taking RESULTS Name Result Date Reference Range H PYLORI (IN HOUSE) 2016-10-22 H. PYLORI Negative Control + Lot # [id number] Exp date 05/31/2017 TEST, URINE (IN HOUSE) 2016-10-22 RESULTS negative Lot # [id number] Control + Exp date 04/2018 URINE DRUG SCREEN (IN HOUSE) 2016-10-22 Lot # [id number] Exp date 04/2018 Control + COCAINE Negative AMPH Negative MTD Negative THC Negative OPIATE Negative BENZO Negative PCP Negative BAR Negativie OXY Negative MAMP Negative TCA Negative BUP Negative MDMA Negative UA LONG DIP (IN HOUSE) 2016-10-22 Lot # [id number] Exp date 10/2017 Clarity cloudy Color yellow Odor none GLU negative ABDELRAHMAN negative KET negative SG 1.015 BLO trace-lysed pH 7.5 Protein negative URO 0.2 NIT negative VIKKI negative Lot # Exp PROCEDURES Procedure Date Ordered Result Body Site URINALYSIS, AUTO, W/O SCOPE Oct 22, 2016 URINE TEST Oct 22, 2016 DRUG TEST PRSMV DIR OPT OBS Oct 22, 2016 IMMUNOASSAY,INFECTIOUS AGENT Oct 22, 2016 INSTRUCTIONS MEDICATIONS ADMINISTERED No Known Medications MEDICAL (GENERAL) HISTORY Type Description Date Medical History schizoaffective disorder Medical History borderline personality disorder Hospitalization History 5 times in 2014 for mental health Hospitalization History May Unit #2 for suicide thoughts 07/2016 Hospitalization History intentional overdose, suicide attempt-[facility] 12/28/2016
--- OUTSIDE RECORDS SUMMARY | 2017-09-20 04:07 | XMS REPORT ---
Author Author BLAS BAJWA Organization [facility] Address [address] [place] [address] Care Team Providers Care Public Address System Mechanic Name Role Phone AYDEE BLAS Unavailable PROBLEMS Type Condition ICD9-CM Code ANC52-JG Code Onset Dates Condition Status SNOMED Code Problem Breakthrough bleeding on depo provera N92.1 Active 25377954 Problem Borderline personality disorder F60.3 Active 65153772 Problem Schizoaffective disorder, unspecified condition F25.9 Active 45233215 Problem Establishing care with new doctor, encounter for Z71.89 Active 298091040 Problem Bipolar depression F31.30 Active 06721101 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 29203560 Problem Overweight E66.3 Active 037723116 ALLERGIES No Information ENCOUNTERS Encounter Location Date Diagnosis [facility] [address] [place] [address] 87760- 4076 21 Apr, 2017 Schizoaffective disorder, unspecified condition F25.9 and Borderline personality disorder F60.3 [facility] [address] [place] [address] 84048- 6262 14 Apr, 2017 Bipolar depression F31.30 ; Overweight E66.3 ; Schizoaffective disorder, unspecified condition F25.9 and Borderline personality disorder F60.3 [facility] [address], [place] [address] 2017 Borderline personality disorder F60.3 ; Schizoaffective disorder, unspecified condition F25.9 ; Bipolar depression F31.30 and Overweight E66.3 [facility] [address] [place] [address] 17 Mar, 2017 Schizoaffective disorder, unspecified condition F25.9 and Borderline personality disorder F60.3 [facility] [id number] [place] [address] 17347- 7617 Mar, Schizoaffective disorder, unspecified condition F25.9 and Borderline personality disorder F60.3 [facility] [id number] [place] [address] 47101- 9279 Jan, Schizoaffective disorder, unspecified condition F25.9 and Borderline personality disorder F60.3 [facility] [address] 02824- 6951 Jan, Schizoaffective disorder, unspecified condition F25.9 and Borderline personality disorder F60.3 [place] [address] 96330- 5511 Jan, [facility] [address] 21160- 3018 Jan, Schizoaffective disorder, unspecified condition F25.9 and Borderline personality disorder F60.3 [facility] [id number] [place] [address] 18340 -4075 Jan, Vaginal itching L29.8 and Vaginal carlos B37.3 [place] [address] 92048- 7755 Jan, Schizoaffective disorder, unspecified condition F25.9 and Borderline personality disorder F60.3 [place] [id number] [place] [address] 71620- 8214 Jan, Bipolar depression F31.30 [facility] [id number] [place] [address] 13896- 3689 Jan, Bipolar depression F31.30 [facility] [address] [id number] Dec, [facility] [id number] [place] [address] 82854 -8357 Dec, 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 [facility] [address] 97989- 9844 Oct, Nausea R11.0 [facility] [id number] [place] [address] 26202- 2800 Oct, Encounter for test, result unknown Z32.00 [facility] [id number] [place] [address] 89945- 8242 July, Bipolar depression F31.30 and Overweight E66.3 [place] [address] 67007- 4686 Jun, Establishing care with new doctor, encounter for Z71.89 [place] [id number] [place] [address] 32511- 2262 May, Establishing care with new doctor, encounter for Z71.89 ; Overweight E66.3 and Bipolar depression F31.30 [place] [id number] [place] [address] 17026- 1605 May, [facility] [id number] [place] [address] 22972- 3827 May, [place] [id number] [place] [address] 25725- 3777 May, [facility] [id number] [place] [address] 13048- 3978 May, Encounter for Depo-Provera contraception Z30.42 [facility] [id number] [place] [address] 64759- 0279 Jan, Encounter for Depo-Provera contraception Z30.42 [facility] [id number] [place] [address] 27547 -0075 Jan, Breakthrough bleeding on depo provera N92.1 [facility] [id number] [place] [address] 77113- 4040 03 Dec, 2015 Encounter for other general counseling and advice on contraception Z30.09 and Encounter for Depo-Provera contraception Z30.42 [place] [address] [place] [address]- 4170 29 Nov, 2014 control counseling V25.09 [facility] [id number] [place] [address] 53603- 3208 14 Nov, 2014 Unspecified episodic mood disorder 296.90 ; Anxiety state, unspecified 300.00 and [place] II diagnosis deferred 799.9 [facility] [id number] [place] [address] 94310- 5407 09 Nov, 2014 Elevated liver enzymes 790.5 and Elevated prolactin level 259.9 [facility] [id number] [place] [address] 78619- 4639 Nov, [facility] [id number] [place] [address] 37472- 6011 Oct, Routine general medical examination at health care facility V70.0 [facility] [id number] [place] [address] 68069- 1305 Mar, [facility] [id number] [place] [address] 10220- 4115 Mar, [facility] [id number] [place] [address] 41862- 1975 Jan, [facility] [id number] [place] [address] 87896- 0593 Jan, [facility] [address] [place] [address] 86020- 7136 Oct, IMMUNIZATIONS No Known Immunizations SOCIAL HISTORY Never Assessed REASON FOR VISIT BH f/u, Depression. PLAN OF CARE Activity Details Follow Up Next available Reason:depression VITAL SIGNS MEDICATIONS Unknown Medications RESULTS No Results PROCEDURES Procedure Date Ordered Result Body Site Psychotherapy, patient &/family, 45 minutes, established patient Feb 19, 2017 INSTRUCTIONS MEDICATIONS ADMINISTERED No Known Medications MEDICAL (GENERAL) HISTORY Type Description Date Medical History schizoaffective disorder Medical History borderline personality disorder Hospitalization History 5 times in 2014 for mental health Hospitalization History [place] Unit #2 for suicide thoughts 07/2016 Hospitalization History intentional overdose, suicide attempt-[facility] 12/28/2016
--- OUTSIDE RECORDS SUMMARY | 2017-09-20 04:07 | XMS REPORT ---
Author Author BLAS BAJWA Organization [facility] Address [address] [place] [address] Care Team Providers Care Pottery Machine Operator Name Role Phone BLAS BAJWA Unavailable PROBLEMS Type Condition ICD9-CM Code [id number] Code Onset Dates Condition Status SNOMED Code Problem Breakthrough bleeding on depo provera N92.1 Active 60339898 Problem Borderline personality disorder F60.3 Active 41483579 Problem Schizoaffective disorder, unspecified condition F25.9 Active 88211777 Problem Establishing care with new doctor, encounter for Z71.89 Active 526267822 Problem Bipolar depression F31.30 Active 47665957 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 11657349 Problem Overweight E66.3 Active 043455095 ALLERGIES No Information ENCOUNTERS Encounter Location Date Diagnosis [facility] [id number] [place] [address] 78228- 0935 21 Apr, 2017 Schizoaffective disorder, unspecified condition F25.9 and Borderline personality disorder F60.3 [facility] [address] [place] [address] 84253- 3051 14 Apr, 2017 Bipolar depression F31.30 ; Overweight E66.3 ; Schizoaffective disorder, unspecified condition F25.9 and Borderline personality disorder F60.3 [facility] [address] [address] Mar, Borderline personality disorder F60.3 ; Schizoaffective disorder, unspecified condition F25.9 ; Bipolar depression F31.30 and Overweight E66.3 [facility] [address] [address] 17 Mar, 2017 Schizoaffective disorder, unspecified condition F25.9 and Borderline personality disorder F60.3 [facility] [id number] [place] [address] 05017- 4542 Mar, Schizoaffective disorder, unspecified condition F25.9 and Borderline personality disorder F60.3 [facility] [id number] [place] [address] 58677- 6798 Jan, Schizoaffective disorder, unspecified condition F25.9 and Borderline personality disorder F60.3 [facility] [address] 33329- 3207 Jan, Schizoaffective disorder, unspecified condition F25.9 and Borderline personality disorder F60.3 [place] [address] 85792- 6574 Jan, [facility] [address] 55816- 0533 Jan, Schizoaffective disorder, unspecified condition F25.9 and Borderline personality disorder F60.3 [facility] [id number] [place] [address] 42107 -0931 Jan, Vaginal itching L29.8 and Vaginal carlos B37.3 [place] [address] 71852- 8124 Jan, Schizoaffective disorder, unspecified condition F25.9 and Borderline personality disorder F60.3 [place] [id number] [place] [address] 32436- 4833 Jan, Bipolar depression F31.30 [facility] [id number] [place] [address] 30490- 4375 Jan, Bipolar depression F31.30 [facility] [address] [id number] Dec, [facility] [id number] [place] [address] 32236 -8789 Dec, 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 [facility] [address] 71901- 4543 Oct, Nausea R11.0 [facility] [id number] [place] [address] 70652- 2424 Oct, Encounter for test, result unknown Z32.00 [facility] [id number] [place] [address] 78175- 1010 July, Bipolar depression F31.30 and Overweight E66.3 [place] [address] 40089- 1721 Jun, Establishing care with new doctor, encounter for Z71.89 [place] [id number] [place] [address] 46543- 6715 May, Establishing care with new doctor, encounter for Z71.89 ; Overweight E66.3 and Bipolar depression F31.30 [place] [id number] [place] [address] 55595- 1102 May, [facility] [id number] [place] [address] 91308- 9767 May, [place] [id number] [place] [address] 37515- 0286 May, [facility] [id number] [place] [address] 14169- 0101 May, Encounter for Depo-Provera contraception Z30.42 [facility] [id number] [place] [address] 38173- 5992 Jan, Encounter for Depo-Provera contraception Z30.42 [facility] [id number] [place] [address] 44221 -8370 Jan, Breakthrough bleeding on depo provera N92.1 [facility] [id number] [place] [address] 72635- 3408 03 Dec, 2015 Encounter for other general counseling and advice on contraception Z30.09 and Encounter for Depo-Provera contraception Z30.42 [place] [address] [place] [address] 29 Nov, 2014 control counseling V25.09 [facility] [id number] [place] [address] 87950- 7924 14 Nov, 2014 Unspecified episodic mood disorder 296.90 ; Anxiety state, unspecified 300.00 and [place] II diagnosis deferred 799.9 [facility] [id number] [place] [address] 60392- 0960 09 Nov, 2014 Elevated liver enzymes 790.5 and Elevated prolactin level 259.9 [facility] [id number] [place] [address] 55934- 9130 Nov, [facility] [id number] [place] [address] 73971- 8277 Oct, Routine general medical examination at health care facility V70.0 [facility] [id number] [place] [address] 42886- 7400 Mar, [facility] [id number] [place] [address] 73975- 1035 Mar, [facility] [id number] [place] [address] 64718- 2789 Jan, [facility] [id number] [place] [address] 77402- 2176 Jan, [facility] [address] [place] [address] 97255- 1351 Oct, IMMUNIZATIONS No Known Immunizations SOCIAL HISTORY Never Assessed REASON FOR VISIT BH f/u, Depression. PLAN OF CARE Activity Details Follow Up 1 Week Reason:depression VITAL SIGNS MEDICATIONS Unknown Medications RESULTS No Results PROCEDURES Procedure Date Ordered Result Body Site Psychotherapy, patient &/family, 30 minutes, established patient Jan 27, 2017 INSTRUCTIONS MEDICATIONS ADMINISTERED No Known Medications MEDICAL (GENERAL) HISTORY Type Description Date Medical History schizoaffective disorder Medical History borderline personality disorder Hospitalization History 5 times in 2014 for mental health Hospitalization History [facility] #2 for suicide thoughts 07/2016 Hospitalization History intentional overdose, suicide attempt-[facility] 12/28/2016
--- OUTSIDE RECORDS SUMMARY | 2017-09-20 04:07 | XMS REPORT ---
Author Author EL CARSON Organization [facility] Address [address] [place] [address] Care Team Providers Care Patient Information Coordinator Name Role Phone EL CARSON Unavailable PROBLEMS Type Condition ICD9-CM Code [id number] Code Onset Dates Condition Status SNOMED Code Problem Breakthrough bleeding on depo provera N92.1 Active 31978451 Problem Borderline personality disorder F60.3 Active 44613163 Problem Schizoaffective disorder, unspecified condition F25.9 Active 67571646 Problem Establishing care with new doctor, encounter for Z71.89 Active 408239415 Problem Bipolar depression F31.30 Active 47946568 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 42045884 Problem Overweight E66.3 Active 643360536 ALLERGIES No Information ENCOUNTERS Encounter Location Date Diagnosis [facility] [address] [address]77 July, [facility] [address] 75046- 9516 21 Apr, 2017 Schizoaffective disorder, unspecified condition F25.9 and Borderline personality disorder F60.3 [facility] [id number] [place] [address] 62410- 8474 14 Apr, 2017 Bipolar depression F31.30 ; Overweight E66.3 ; Schizoaffective disorder, unspecified condition F25.9 and Borderline personality disorder F60.3 [facility] [address] 19149- 6764 Mar, Borderline personality disorder F60.3 ; Schizoaffective disorder, unspecified condition F25.9 ; Bipolar depression F31.30 and Overweight E66.3 [facility] [address] 34951- 2551 Mar, Schizoaffective disorder, unspecified condition F25.9 and Borderline personality disorder F60.3 [facility] [id number] [place] [address] 02080- 8173 Mar, Schizoaffective disorder, unspecified condition F25.9 and Borderline personality disorder F60.3 [facility] [id number] [place] [address] 41863- 8283 Jan, Schizoaffective disorder, unspecified condition F25.9 and Borderline personality disorder F60.3 [facility] [id number] [place] [address] 50654- 0113 Jan, Schizoaffective disorder, unspecified condition F25.9 and Borderline personality disorder F60.3 [facility] [id number] [place] [address] 23616- 7565 Jan, [facility] [address] 26902- 1610 Jan, Schizoaffective disorder, unspecified condition F25.9 and Borderline personality disorder F60.3 [facility] [id number] [place] [address] 27769 -6076 Jan, Vaginal itching L29.8 and Vaginal carlos B37.3 [facility] [id number] [place] [address] 46288- 9627 Jan, Schizoaffective disorder, unspecified condition F25.9 and Borderline personality disorder F60.3 [facility] [id number] [place] [address] 19135- 8862 Jan, Bipolar depression F31.30 [facility] [id number] [place] [address] 43684- 9723 Jan, Bipolar depression F31.30 [facility] [id number] [place] [address] [id number] Dec, [facility] [id number] [place] [address] 31193 -7644 Dec, 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 [facility] [id number] [place] [address] 50648- 8123 Oct, Nausea R11.0 [facility] [id number] [place] [address] 37002- 8273 Oct, Encounter for test, result unknown Z32.00 [place] [address] 28410- 4161 July, Bipolar depression F31.30 and Overweight E66.3 [place] [id number] [place] [address] 37603- 9751 Jun, Establishing care with new doctor, encounter for Z71.89 [place] [address] 80582- 7143 May, Establishing care with new doctor, encounter for Z71.89 ; Overweight E66.3 and Bipolar depression F31.30 [facility] [id number] [place] [address] 98264- 4780 May, [place] [address] 28858- 1454 May, [facility] [id number] [place] [address] 85391- 1470 May, [facility] [id number] [place] [address] 30711- 8166 May, Encounter for Depo-Provera contraception Z30.42 [facility] [id number] [place] [address] 65237- 5571 Jan, Encounter for Depo-Provera contraception Z30.42 [facility] [id number] [place] [address] 59463 -4695 Jan, Breakthrough bleeding on depo provera N92.1 [facility] [id number] [place] [address] 53389- 8052 Dec, Encounter for other general counseling and advice on contraception Z30.09 and Encounter for Depo-Provera contraception Z30.42 [facility] [address] [place] [address] 73647- 5863 29 Nov, 2014 control counseling V25.09 [facility] [id number] [place] [address] 78001- 2220 14 Nov, 2014 Unspecified episodic mood disorder 296.90 ; Anxiety state, unspecified 300.00 and [place] II diagnosis deferred 799.9 [facility] [id number] [place] [address] 29657- 1186 09 Nov, 2014 Elevated liver enzymes 790.5 and Elevated prolactin level 259.9 [place] [id number] [place] [address] 17900- 0822 02 Nov, 2014 [place] [id number] [place] [address] 37612- 7400 Oct, Routine general medical examination at health care facility V70.0 [facility] [id number] [place] [address] 98517- 0715 Mar, [place] [id number] [place] [address] 60426- 7597 Mar, [facility] [address] [place] [address] 76317- 8596 Jan, [place] [id number] [place] [address] 08334- 4444 Jan, [facility] [id number] [place] [address] 10230- 4651 Oct, IMMUNIZATIONS No Known Immunizations SOCIAL HISTORY Never Assessed REASON FOR VISIT [facility] Contact PLAN OF CARE Activity Details Follow Up none Reason: VITAL SIGNS MEDICATIONS Unknown Medications RESULTS No Results PROCEDURES Procedure Date Ordered Result Body Site Psych diagnostic evaluation, established patient Jan 03, 2017 INSTRUCTIONS MEDICATIONS ADMINISTERED No Known Medications MEDICAL (GENERAL) HISTORY Type Description Date Medical History schizoaffective disorder Medical History borderline personality disorder Hospitalization History 5 times in 2014 for mental health Hospitalization History [facility] for suicide thoughts 07/2016 Hospitalization History intentional overdose, suicide attempt-[facility] 12/28/2016
--- OUTSIDE RECORDS SUMMARY | 2017-09-20 04:08 | XMS REPORT ---
Author Author RAVI MACARIO [facility] Address [address] [place] [address] Care Team Providers Care It Help Desk Analyst Name Role Phone RAVI MACARIO Unavailable PROBLEMS Type Condition ICD9-CM Code PNV57-VH Code Onset Dates Condition Status SNOMED Code Problem Breakthrough bleeding on depo provera N92.1 Active 00372641 Problem Borderline personality disorder F60.3 Active 96875523 Problem Schizoaffective disorder, unspecified condition F25.9 Active 03959118 Problem Establishing care with new doctor, encounter for Z71.89 Active 221229568 Problem Bipolar depression F31.30 Active 71900248 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 12399882 Problem Overweight E66.3 Active 290042079 ALLERGIES Substance Reaction Event Type Date Status Haldol Unknown Drug Allergy Jan, Active BuSpar More anxious, depressed and suicidal Drug Allergy Jan, Active ENCOUNTERS Encounter Location Date Diagnosis [facility] [address] [place] [address] 15865- 2393 Apr, Schizoaffective disorder, unspecified condition F25.9 and Borderline personality disorder F60.3 [facility] [id number] [place] [address] 93578- 5948 14 Apr, 2017 Bipolar depression F31.30 ; Overweight E66.3 ; Schizoaffective disorder, unspecified condition F25.9 and Borderline personality disorder F60.3 [facility] [address] [place] [address] 28383- 2612 Mar, Borderline personality disorder F60.3 ; Schizoaffective disorder, unspecified condition F25.9 ; Bipolar depression F31.30 and Overweight E66.3 [facility] [address] [address]- 4[address] Mar, Schizoaffective disorder, unspecified condition F25.9 and Borderline personality disorder F60.3 [facility] [id number] [place] [address] 42627- 2254 Mar, Schizoaffective disorder, unspecified condition F25.9 and Borderline personality disorder F60.3 [facility] [id number] [place] [address] 22032- 9281 Jan, Schizoaffective disorder, unspecified condition F25.9 and Borderline personality disorder F60.3 [facility] [id number] [place] [address] 05270- 4092 Jan, Schizoaffective disorder, unspecified condition F25.9 and Borderline personality disorder F60.3 [facility] [id number] [place] [address] 75592- 1733 Jan, [facility] [address] 74364- 1311 Jan, Schizoaffective disorder, unspecified condition F25.9 and Borderline personality disorder F60.3 [facility] [id number] [place] [address] 08278 -3132 Jan, Vaginal itching L29.8 and Vaginal carlos B37.3 [facility] [id number] [place] [address] 69857- 5918 Jan, Schizoaffective disorder, unspecified condition F25.9 and Borderline personality disorder F60.3 [facility] [id number] [place] [address] 71111- 0275 Jan, Bipolar depression F31.30 [facility] [id number] [place] [address] 73263- 9606 Jan, Bipolar depression F31.30 [facility] [id number] [place] [address] [id number] Dec, [facility] [id number] [place] [address] 82090 -2585 Dec, 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 [facility] [id number] [place] [address] 01937- 4530 Oct, Nausea R11.0 [facility] [id number] [place] [address] 87451- 5686 Oct, Encounter for test, result unknown Z32.00 [place] [address] 71274- 9049 July, Bipolar depression F31.30 and Overweight E66.3 [place] [id number] [place] [address] 74864- 9000 Jun, Establishing care with new doctor, encounter for Z71.89 [place] [id number] [place] [address] 67000- 8644 May, Establishing care with new doctor, encounter for Z71.89 ; Overweight E66.3 and Bipolar depression F31.30 [facility] [id number] [place] [address] 23634- 9280 May, [facility] [id number] [place] [address] 89131- 5523 May, [facility] [id number] [place] [address] 30164- 9760 May, [facility] [id number] [place] [address] 72750- 2831 May, Encounter for Depo-Provera contraception Z30.42 [facility] [id number] [place] [address] 08042- 2839 Jan, Encounter for Depo-Provera contraception Z30.42 [facility] [id number] [place] [address] 27028 -9713 Jan, Breakthrough bleeding on depo provera N92.1 [facility] [id number] [place] [address] 35964- 4726 Dec, Encounter for other general counseling and advice on contraception Z30.09 and Encounter for Depo-Provera contraception Z30.42 [facility] [address] [place] [address] 01029- 3850 29 Nov, 2014 control counseling V25.09 [facility] [id number] [place] [address] 44440- 5797 14 Nov, 2014 Unspecified episodic mood disorder 296.90 ; Anxiety state, unspecified 300.00 and Catherine II diagnosis deferred 799.9 [facility] [id number] [place] [address] 00949- 5826 09 Nov, 2014 Elevated liver enzymes 790.5 and Elevated prolactin level 259.9 [place] [place] [id number] [place] [address] 15886- 1743 02 Nov, 2014 [place] [id number] [place] [address] 99466- 8550 Oct, Routine general medical examination at [facility] V70.0 [place] [id number] [place] [address] 63976- 7989 Mar, [place] [id number] [place] [address] 48736- 3796 Mar, [place] [id number] [place] [address] 12584- 2090 Jan, [place] [id number] [place] [address] 61970- 0053 Jan, [place] [id number] [place] [address] 79802- 7022 18 Oct, 2009 IMMUNIZATIONS No Known Immunizations SOCIAL HISTORY Never Assessed REASON FOR VISIT vaginal irritation: milky discharge, itching and burning to vaginal area x10 days henna cabrera PLAN OF CARE Activity Details Follow Up prn Reason: VITAL SIGNS Height 64.5 in 2017-01-17 Weight 225.8 lbs 2017-01-17 Temperature 98.3 degrees Fahrenheit 2017-01-17 Heart Rate 80 bpm 2017-01-17 Respiratory Rate 20 2017-01-17 BMI 38.16 kg/m2 2017-01-17 Blood pressure systolic 120 mmHg 2017-01-17 Blood pressure diastolic 74 mmHg 2017-01-17 MEDICATIONS Medication Instructions Dosage Frequency Start Date End Date Duration Status Depakote ... Active Prozac Active Levothroid Active Diflucan 150 MG Orally Take one tabelt today and repeat in 72 hours as directed Jan, Jan, 4 days Active RESULTS No Results PROCEDURES Procedure Date Ordered Result Body Site No Charge Jan 17, 2017 Bacterial Vaginosis In House Jan 17, 2017 CULTURE, BACTERIA, OTHER Jan 17, 2017 TRICHOMONAS ASSAY W/OPTIC Jan 17, 2017 INSTRUCTIONS MEDICATIONS ADMINISTERED No Known Medications MEDICAL (GENERAL) HISTORY Type Description Date Medical History schizoaffective disorder Medical History borderline personality disorder Hospitalization History 5 times in 2014 for mental health Hospitalization History [facility] #2 for suicide thoughts 07/2016 Hospitalization History intentional overdose, suicide attempt-[facility] 12/28/2016
--- OUTSIDE RECORDS SUMMARY | 2017-09-20 04:08 | XMS REPORT ---
Author Author CHU VILLEDA Organization [facility] Address [address] [place] [address] Care Team Providers Care Auditing Manager Name Role Phone CHU VILLEDA Unavailable PROBLEMS Type Condition ICD9-CM Code VFK55-QT Code Onset Dates Condition Status SNOMED Code Problem Breakthrough bleeding on depo provera N92.1 Active 33465559 Problem Borderline personality disorder F60.3 Active 42327488 Problem Schizoaffective disorder, unspecified condition F25.9 Active 77008411 Problem Establishing care with new doctor, encounter for Z71.89 Active 744929062 Problem Bipolar depression F31.30 Active 35159179 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 31036951 Problem Overweight E66.3 Active [id number] ALLERGIES No Information ENCOUNTERS Encounter Location Date Diagnosis [facility] [id number] [place] [address] 07922- 9455 July, [facility] [id number] [place] [address] 40054- 8159 Apr, Schizoaffective disorder, unspecified condition F25.9 and Borderline personality disorder F60.3 [facility] [address] [place] [address] 62354- 7356 14 Apr, 2017 Bipolar depression F31.30 ; Overweight E66.3 ; Schizoaffective disorder, unspecified condition F25.9 and Borderline personality disorder F60.3 [facility] [id number] [place] [address] 90015- 1535 Mar, Borderline personality disorder F60.3 ; Schizoaffective disorder, unspecified condition F25.9 ; Bipolar depression F31.30 and Overweight E66.3 [facility] [id number] [place] [address] 52696- 3427 Mar, Schizoaffective disorder, unspecified condition F25.9 and Borderline personality disorder F60.3 [facility] [id number] [place] [address] 08082- 1470 Mar, Schizoaffective disorder, unspecified condition F25.9 and Borderline personality disorder F60.3 [facility] [id number] [place] [address] 92053- 3759 Jan, Schizoaffective disorder, unspecified condition F25.9 and Borderline personality disorder F60.3 [facility] [id number] [place] [address] 31018- 0951 Jan, Schizoaffective disorder, unspecified condition F25.9 and Borderline personality disorder F60.3 [facility] [id number] [place] [address] 60447- 0181 Jan, [facility] [address] 43259- 8593 Jan, Schizoaffective disorder, unspecified condition F25.9 and Borderline personality disorder F60.3 [facility] [id number] [place] [address] 73958 -[phone] Jan, Vaginal itching L29.8 and Vaginal carlos B37.3 [facility] [id number] [place] [address] 93519- 8754 Jan, Schizoaffective disorder, unspecified condition F25.9 and Borderline personality disorder F60.3 [facility] [id number] [place] [address] 08683- 9441 Jan, Bipolar depression F31.30 [facility] [id number] [place] [address] 07218- 8500 Jan, Bipolar depression F31.30 [facility] [place] [id number] [place] [address] [id number] Dec, [facility] [id number] [place] [address] 82044 -1106 Dec, 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 [facility] [id number] [place] [address] 79691- 1717 Oct, Nausea R11.0 [facility] [id number] [place] [address] 98121- 0657 Oct, Encounter for test, result unknown Z32.00 [place] [address] 53663- 0042 July, Bipolar depression F31.30 and Overweight E66.3 [place] [id number] [place] [address] 68192- 6106 Jun, Establishing care with new doctor, encounter for Z71.89 [place] [id number] [place] [address] 54893- 6376 May, Establishing care with new doctor, encounter for Z71.89 ; Overweight E66.3 and Bipolar depression F31.30 [facility] [id number] [place] [address] 69581- 6291 May, [facility] [id number] [place] [address] 34525- 5419 May, [facility] [id number] [place] [address] 38734- 7630 May, [facility] [id number] [place] [address] 46675- 2670 May, Encounter for Depo-Provera contraception Z30.42 [facility] [id number] [place] [address] 40809- 0037 Jan, Encounter for Depo-Provera contraception Z30.42 [facility] [id number] [place] [address] 15492 -8431 Jan, Breakthrough bleeding on depo provera N92.1 [facility] [id number] [place] [address] 98530- 9962 Dec, Encounter for other general counseling and advice on contraception Z30.09 and Encounter for Depo-Provera contraception Z30.42 [facility] [address] [place] [address] 92083- 8095 29 Nov, 2014 control counseling V25.09 [facility] [id number] [place] [address] 35792- 6415 14 Nov, 2014 Unspecified episodic mood disorder 296.90 ; Anxiety state, unspecified 300.00 and [place] II diagnosis deferred 799.9 [place] [id number] [place] [address] 55637- 2669 09 Nov, 2014 Elevated liver enzymes 790.5 and Elevated prolactin level 259.9 [place] [id number] [place] [address] 76372- 1179 02 Nov, 2014 [place] [id number] [place] [address] 97991- 5182 Oct, Routine general medical examination at health care facility V70.0 [place] [id number] [place] [address] 78083- 4159 Mar, [place] [id number] [place] [address] 00622- 0196 Mar, [place] [id number] [place] [address] 72622- 4168 Jan, [place] [id number] [place] [address] 95160- 0410 Jan, [place] [id number] [place] [address] 90141- 6066 Oct, IMMUNIZATIONS No Known Immunizations SOCIAL HISTORY Never Assessed REASON FOR VISIT Hospital admit/DC PLAN OF CARE VITAL SIGNS MEDICATIONS Medication Instructions Dosage Frequency Start Date End Date Duration Status Levothroid Active RESULTS No Results PROCEDURES No Known procedures INSTRUCTIONS MEDICATIONS ADMINISTERED No Known Medications MEDICAL (GENERAL) HISTORY Type Description Date Medical History schizoaffective disorder Medical History borderline personality disorder Hospitalization History 5 times in 2014 for mental health Hospitalization History [place] [facility] #2 for suicide thoughts 07/2016 Hospitalization History intentional overdose, suicide attempt-[facility] 12/28/2016
--- OUTSIDE RECORDS SUMMARY | 2017-09-20 04:08 | XMS REPORT ---
Author Author BLAS BAJWA Organization [facility] Address [address] [place] [address] Care Team Providers Care Construction Helper Name Role Phone AYDEE BLAS Unavailable PROBLEMS Type Condition ICD9-CM Code WCL55-BB Code Onset Dates Condition Status SNOMED Code Problem Breakthrough bleeding on depo provera N92.1 Active 72524671 Problem Borderline personality disorder F60.3 Active 63359436 Problem Schizoaffective disorder, unspecified condition F25.9 Active 98532402 Problem Establishing care with new doctor, encounter for Z71.89 Active 699101747 Problem Bipolar depression F31.30 Active 19391195 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 84193222 Problem Overweight E66.3 Active 668442743 ALLERGIES No Information ENCOUNTERS Encounter Location Date Diagnosis [facility] [address] [place] [address] 36546- 3153 21 Apr, 2017 Schizoaffective disorder, unspecified condition F25.9 and Borderline personality disorder F60.3 [facility] [address] [place] [address] 08625- 7556 14 Apr, 2017 Bipolar depression F31.30 ; Overweight E66.3 ; Schizoaffective disorder, unspecified condition F25.9 and Borderline personality disorder F60.3 [facility] [address] [address] 6[address] Mar, Borderline personality disorder F60.3 ; Schizoaffective disorder, unspecified condition F25.9 ; Bipolar depression F31.30 and Overweight E66.3 [facility] [address] [address] 2914 17 Mar, 2017 Schizoaffective disorder, unspecified condition F25.9 and Borderline personality disorder F60.3 [facility] [id number] [place] [address] 49281- 4322 Mar, Schizoaffective disorder, unspecified condition F25.9 and Borderline personality disorder F60.3 [facility] [id number] [place] [address] 12561- 5672 Jan, Schizoaffective disorder, unspecified condition F25.9 and Borderline personality disorder F60.3 [facility] [address] 54929- 1618 Jan, Schizoaffective disorder, unspecified condition F25.9 and Borderline personality disorder F60.3 [place] [address] 12556- 5595 Jan, [facility] [address] 41316- 1489 Jan, Schizoaffective disorder, unspecified condition F25.9 and Borderline personality disorder F60.3 [facility] [id number] [place] [address] 75856 -9399 Jan, Vaginal itching L29.8 and Vaginal carlos B37.3 [place] [address] 60384- 1160 Jan, Schizoaffective disorder, unspecified condition F25.9 and Borderline personality disorder F60.3 [place] [id number] [place] [address] 82962- 6465 Jan, Bipolar depression F31.30 [facility] [id number] [place] [address] 11526- 4620 Jan, Bipolar depression F31.30 [facility] [address] [id number] Dec, [facility] [id number] [place] [address] 58038 -8772 Dec, 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 [facility] [address] 01380- 9176 Oct, Nausea R11.0 [facility] [id number] [place] [address] 50056- 7199 Oct, Encounter for test, result unknown Z32.00 [facility] [id number] [place] [address] 73909- 0260 July, Bipolar depression F31.30 and Overweight E66.3 [place] [address] 56151- 5405 Jun, Establishing care with new doctor, encounter for Z71.89 [place] [id number] [place] [address] 43893- 0924 May, Establishing care with new doctor, encounter for Z71.89 ; Overweight E66.3 and Bipolar depression F31.30 [place] [id number] [place] [address] 61125- 0907 May, [facility] [id number] [place] [address] 41966- 8451 May, [place] [id number] [place] [address] 41625- 1264 May, [facility] [id number] [place] [address] 44330- 7635 May, Encounter for Depo-Provera contraception Z30.42 [facility] [id number] [place] [address] 91258- 3089 Jan, Encounter for Depo-Provera contraception Z30.42 [facility] [id number] [place] [address] 48831 -2823 Jan, Breakthrough bleeding on depo provera N92.1 [facility] [id number] [place] [address] 62351- 8372 03 Dec, 2015 Encounter for other general counseling and advice on contraception Z30.09 and Encounter for Depo-Provera contraception Z30.42 [place] [address] [place] [address]- 4553 29 Nov, 2014 control counseling V25.09 [facility] [id number] [place] [address] 58039- 4600 14 Nov, 2014 Unspecified episodic mood disorder 296.90 ; Anxiety state, unspecified 300.00 and [place] II diagnosis deferred 799.9 [facility] [id number] [place] [address] 92624- 0131 09 Nov, 2014 Elevated liver enzymes 790.5 and Elevated prolactin level 259.9 [facility] [id number] [place] [address] 48725- 2927 Nov, [facility] [id number] [place] [address] 45256- 9927 Oct, Routine general medical examination at health care facility V70.0 [facility] [id number] [place] [address] 76875- 1797 Mar, [facility] [id number] [place] [address] 78614- 5558 Mar, [facility] [id number] [place] [address] 00674- 5999 Jan, [facility] [id number] [place] [address] 17445- 5962 Jan, [facility] [address] [place] [address] 79121- 4147 Oct, IMMUNIZATIONS No Known Immunizations SOCIAL HISTORY Never Assessed REASON FOR VISIT f/u, Depression. PLAN OF CARE Activity Details Follow Up 2 Weeks Reason:depression VITAL SIGNS MEDICATIONS Unknown Medications RESULTS No Results PROCEDURES Procedure Date Ordered Result Body Site Psychotherapy, patient &/family, 30 minutes, established patient Mar 05, 2017 INSTRUCTIONS MEDICATIONS ADMINISTERED No Known Medications MEDICAL (GENERAL) HISTORY Type Description Date Medical History schizoaffective disorder Medical History borderline personality disorder Hospitalization History 5 times in 2014 for mental health Hospitalization History [place] [facility] #2 for suicide thoughts 07/2016 Hospitalization History intentional overdose, suicide attempt-[facility] 12/28/2016
--- OUTSIDE RECORDS SUMMARY | 2017-09-20 04:08 | XMS REPORT ---
Author Author Erin VARSHA Organization [facility] Address [address] [place] [address] Care Team Providers Care Stage Settings Painter Name Role Phone ronniFABIO VARSHA Unavailable PROBLEMS Type Condition ICD9-CM Code TIZ14-OW Code Onset Dates Condition Status SNOMED Code Problem Breakthrough bleeding on depo provera N92.1 Active 21968018 Problem Borderline personality disorder F60.3 Active 38021602 Problem Schizoaffective disorder, unspecified condition F25.9 Active 70681606 Problem Establishing care with new doctor, encounter for Z71.89 Active 449811771 Problem Bipolar depression F31.30 Active 47556856 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 93237164 Problem Overweight E66.3 Active 846236402 ALLERGIES No Information ENCOUNTERS Encounter Location Date Diagnosis [place] [id number] [place] [address] 65580- 5190 Jun, [place] [id number] [place] [address] 01355- 3891 21 Apr, 2017 Schizoaffective disorder, unspecified condition F25.9 and Borderline personality disorder F60.3 [facility] [id number] [place] [address] 20883- 0368 14 Apr, 2017 Bipolar depression F31.30 ; Overweight E66.3 ; Schizoaffective disorder, unspecified condition F25.9 and Borderline personality disorder F60.3 [facility] [address] 45552- 7884 Mar, Borderline personality disorder F60.3 ; Schizoaffective disorder, unspecified condition F25.9 ; Bipolar depression F31.30 and Overweight E66.3 [facility] [id number] [place] [address] 38362- 7331 Mar, Schizoaffective disorder, unspecified condition F25.9 and Borderline personality disorder F60.3 [facility] [id number] [place] [address] 46466- 6297 Mar, Schizoaffective disorder, unspecified condition F25.9 and Borderline personality disorder F60.3 [facility] [id number] [place] [address] 85999- 9996 Jan, Schizoaffective disorder, unspecified condition F25.9 and Borderline personality disorder F60.3 [facility] [address] 74327- 8170 Jan, Schizoaffective disorder, unspecified condition F25.9 and Borderline personality disorder F60.3 [facility] [id number] [place] [address] 66595- 0314 Jan, [facility] [address] 33936- 8374 Jan, Schizoaffective disorder, unspecified condition F25.9 and Borderline personality disorder F60.3 [facility] [id number] [place] [address] 53061 -4504 Jan, Vaginal itching L29.8 and Vaginal carlos B37.3 [facility] [id number] [place] [address] 78285- 1388 Jan, Schizoaffective disorder, unspecified condition F25.9 and Borderline personality disorder F60.3 [facility] [id number] [place] [address] 63525- 8142 Jan, Bipolar depression F31.30 [facility] [address] 43395- 7031 Jan, Bipolar depression F31.30 [facility] [id number] [place] [address] [phone] Dec, [facility] [address] 66608 -1394 Dec, 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 [facility] [id number] [place] [address] 41245- 8225 Oct, Nausea R11.0 [facility] [id number] [place] [address] 49989- 5762 Oct, Encounter for test, result unknown Z32.00 [place] [address] 50023- 2179 July, Bipolar depression F31.30 and Overweight E66.3 [place] [address] 46534- 0576 Jun, Establishing care with new doctor, encounter for Z71.89 [place] [address] 39653- 3886 May, Establishing care with new doctor, encounter for Z71.89 ; Overweight E66.3 and Bipolar depression F31.30 [facility] [id number] [place] [address] 30854- 2149 May, [place] [address] 46200- 1805 May, [facility] [id number] [place] [address] 37993- 3951 May, [facility] [id number] [place] [address] 91749- 0663 May, Encounter for Depo-Provera contraception Z30.42 [facility] [id number] [place] [address] 44464- 6119 Jan, Encounter for Depo-Provera contraception Z30.42 [facility] [id number] [place] [address] 90292 -3457 Jan, Breakthrough bleeding on depo provera N92.1 [facility] [address] 90797- 0326 Dec, Encounter for other general counseling and advice on contraception Z30.09 and Encounter for Depo-Provera contraception Z30.42 [facility] [id number] [place] [address] 11369- 5301 29 Nov, 2014 control counseling V25.09 [facility] [id number] [place] [address] 83060- 5460 14 Nov, 2014 Unspecified episodic mood disorder 296.90 ; Anxiety state, unspecified 300.00 and [place] II diagnosis deferred 799.9 [facility] [id number] [place] [address] 27749- 6160 09 Nov, 2014 Elevated liver enzymes 790.5 and Elevated prolactin level 259.9 [place] [id number] [place] [address] 18960- 0258 02 Nov, 2014 [place] [id number] [place] [address] 43236- 1983 Oct, Routine general medical examination at health care facility V70.0 [place] [id number] [place] [address] 57944- 0839 Mar, [place] [id number] [place] [address] 72837- 4531 Mar, [place] [id number] [place] [address] 04930- 4631 Jan, [place] [id number] [place] [address] 94464- 5356 Jan, [place] [id number] [place] [address] 05380- 3855 Oct, IMMUNIZATIONS No Known Immunizations SOCIAL HISTORY Never Assessed REASON FOR VISIT test (walk-in) PLAN OF CARE VITAL SIGNS MEDICATIONS Unknown Medications RESULTS Name Result Date Reference Range TEST, URINE (IN HOUSE) 2016-10-01 RESULTS Negative Lot # [id number] Control + Exp date 04/2018 PROCEDURES No Known procedures INSTRUCTIONS MEDICATIONS ADMINISTERED No Known Medications MEDICAL (GENERAL) HISTORY Type Description Date Medical History schizoaffective disorder Medical History borderline personality disorder Hospitalization History 5 times in 2014 for mental health Hospitalization History [place] [facility] #2 for suicide thoughts 07/2016 Hospitalization History intentional overdose, suicide attempt-[facility] 12/28/2016
--- OUTSIDE RECORDS SUMMARY | 2017-09-20 04:10 | XMS REPORT | Continuity of Care Document ---
Author Author [facility] Organization [facility] Address Unknown Phone Unavailable Allergies Active Description Code Type Severity Reaction Onset Reported/Identified Relationship to Patient Clinical Status Yes No Known Drug Allergies [id number] Drug Allergy Unknown N/A 06/29/2014 Yes haloperidol [id number] Drug Allergy Mild N/A 12/16/2014 Medications There is no data. Problems Date Dx Coded Attending Type Code Diagnosis Diagnosed By 06/29/2014 SHIRA SINGH Ot 784.0 HEADACHE 06/29/2014 SHIRA SINGH Ot V62.84 SUICIDAL IDEATION 12/17/2014 Ot F32.9 MAJOR DEPRESSIVE DISORDER, SINGLE EPISOD 12/17/2014 Ot N39.0 URINARY TRACT INFECTION, SITE NOT SPECIF 12/17/2014 Ot R45.851 SUICIDAL IDEATIONS 12/17/2014 Ot Z63.8 OTHER SPECIFIED PROBLEMS RELATED TO PRIM 07/27/2015 DANI MARTIN APRN Ot F20.9 SCHIZOPHRENIA, UNSPECIFIED 07/27/2015 DANI MARTIN APRN Ot F33.9 MAJOR DEPRESSIVE DISORDER, RECURRENT, UN 07/27/2015 DANI MARTIN APRN Ot F43.9 REACTION TO SEVERE STRESS, UNSPECIFIED 07/28/2015 DANI MARTIN APRN Ot F20.9 SCHIZOPHRENIA, UNSPECIFIED 07/28/2015 DANI MARTIN APRN Ot F33.9 MAJOR DEPRESSIVE DISORDER, RECURRENT, UN 07/28/2015 DANI MARTIN APRN Ot F43.9 REACTION TO SEVERE STRESS, UNSPECIFIED 07/28/2015 DANI MARTIN APRN Ot F20.9 SCHIZOPHRENIA, UNSPECIFIED 07/28/2015 DANI MARTIN APRN Ot F33.9 MAJOR DEPRESSIVE DISORDER, RECURRENT, UN 07/28/2015 DANI MARTIN APRN Ot F43.9 REACTION TO SEVERE STRESS, UNSPECIFIED 04/14/2016 DANI MARTIN APRN Ot F31.9 BIPOLAR DISORDER, UNSPECIFIED 04/14/2016 DANI MARTIN APRN Ot F41.9 ANXIETY DISORDER, UNSPECIFIED 04/14/2016 DANI MARTIN APRN Ot G25.1 DRUG-INDUCED TREMOR 04/14/2016 DANI MARTIN APRN Ot R41.9 UNSP SYMPTOMS AND SIGNS W COGNITIVE FUNC 04/14/2016 DANI MARTIN APRN Ot T43.591A POISONING BY OTH ANTIPSYCHOT/NEUROLEPT, 04/14/2016 DANI MARTIN SHIPPING PROCESSOR Ot Z79.899 OTHER CONTINUOUS YARN DYEING MACHINE OPERATOR (CURRENT) DRUG THERAPY 04/15/2016 DANI MARTIN APRN Ot F31.9 BIPOLAR DISORDER, UNSPECIFIED 04/15/2016 DANI MARTIN APRN Ot F41.9 ANXIETY DISORDER, UNSPECIFIED 04/15/2016 DANI MARTIN APRN Ot G25.1 DRUG-INDUCED TREMOR 04/15/2016 DANI MARTIN APRN Ot R41.9 UNSP SYMPTOMS AND SIGNS W COGNITIVE FUNC 04/15/2016 DANI MARTIN APRN Ot T43.591A POISONING BY OTH ANTIPSYCHOT/NEUROLEPT, 04/15/2016 DANI MARTIN APRN Ot Z79.899 OTHER HALF-WAY (CURRENT) DRUG THERAPY 07/19/2016 DANI MARTIN APRN Ot F25.9 SCHIZOAFFECTIVE DISORDER, UNSPECIFIED 07/19/2016 DANI MARTIN SHIPPING PROCESSOR Ot R45.851 SUICIDAL IDEATIONS 07/19/2016 DANI MARTIN SHIPPING PROCESSOR Ot Z79.899 OTHER HALF-WAY (CURRENT) DRUG THERAPY 07/22/2016 DANI MARTIN APRN Ot F25.9 SCHIZOAFFECTIVE DISORDER, UNSPECIFIED 07/22/2016 DANI MARTIN SHIPPING PROCESSOR Ot R45.851 SUICIDAL IDEATIONS 07/22/2016 DANI MARTIN SHIPPING PROCESSOR Ot Z79.899 OTHER HALF-WAY (CURRENT) DRUG THERAPY 09/14/2016 DANI MARTIN APRN Ot F25.9 SCHIZOAFFECTIVE DISORDER, UNSPECIFIED 09/14/2016 DANI MARTIN SHIPPING PROCESSOR Ot R45.851 SUICIDAL IDEATIONS 09/14/2016 DANI MARTIN SHIPPING PROCESSOR Ot Z79.899 OTHER CONTINUOUS YARN DYEING MACHINE OPERATOR (CURRENT) DRUG THERAPY 10/17/2016 DAVID DUNBAR DO Ot F20.9 SCHIZOPHRENIA, UNSPECIFIED 10/17/2016 BETTINA DAVID DAVID K Ot F31.9 BIPOLAR DISORDER, UNSPECIFIED 10/17/2016 BETTINA DAVID, DAVID Zeb Ot F41.9 ANXIETY DISORDER, UNSPECIFIED 10/17/2016 BETTINA DAVID, DAVID Carrington Ot G43.909 MIGRAINE, UNSP, NOT INTRACTABLE, WITHOUT 10/17/2016 BETTINA DAVID Carrington Ot H53.8 OTHER VISUAL DISTURBANCES 10/17/2016 BETTINA DAVID DAVID Carrington Ot Z91.5 PERSONAL HISTORY OF SELF-HARM 12/23/2016 TAI DEAN, NUNU Mills Ot E03.9 HYPOTHYROIDISM, UNSPECIFIED 12/23/2016 NUNU LUJAN MD Ot F32.9 MAJOR DEPRESSIVE DISORDER, SINGLE EPISOD 12/23/2016 NUNU LUJAN MD, Ot F41.9 ANXIETY DISORDER, UNSPECIFIED 12/23/2016 NUNU LUJAN MD Ot G43.909 MIGRAINE, UNSP, NOT INTRACTABLE, WITHOUT 12/23/2016 NUNU LUJAN MD Ot R45.851 SUICIDAL IDEATIONS 12/28/2016 GUILLERMINA ARROYO DO Ot F20.9 SCHIZOPHRENIA, UNSPECIFIED 12/28/2016 GUILLERMINA ARROYO DO Ot F33.9 MAJOR DEPRESSIVE DISORDER, RECURRENT, UN 12/28/2016 GUILLERMINA ARROYO DO Ot T56.892A TOXIC EFFECT OF OTH METALS, INTENTIONAL 12/28/2016 GUILLERMINA ARROYO DO Ot Z79.899 OTHER CONTINUOUS YARN DYEING MACHINE OPERATOR (CURRENT) DRUG THERAPY 12/28/2016 GUILLERMINA ARROYO DO Ot Z91.14 PATIENT'S OTHER NONCOMPLIANCE WITH MEDIC 12/28/2016 GUILLERMINA ARROYO DO Ot F20.9 SCHIZOPHRENIA, UNSPECIFIED 12/28/2016 GUILLERMINA ARROYO DO Ot F33.9 MAJOR DEPRESSIVE DISORDER, RECURRENT, UN 12/28/2016 GUILLERMINA ARROYO DO Ot T56.892A TOXIC EFFECT OF OTH METALS, INTENTIONAL 12/28/2016 GUILLERMINA ARROYO DO Ot Z79.899 OTHER CONTINUOUS YARN DYEING MACHINE OPERATOR (CURRENT) DRUG THERAPY 12/28/2016 GUILLERMINA ARROYO DO Ot Z91.14 PATIENT'S OTHER NONCOMPLIANCE WITH MEDIC 01/06/2017 SHIRA SINGH Ot E03.9 HYPOTHYROIDISM, UNSPECIFIED 01/06/2017 SHIRA SINGH Ot F17.210 NICOTINE DEPENDENCE, CIGARETTES, UNCOMPL 01/06/2017 SHIRA SINGH Ot F20.9 SCHIZOPHRENIA, UNSPECIFIED 01/06/2017 SHIRA SINGH Ot F31.9 BIPOLAR DISORDER, UNSPECIFIED 01/06/2017 SHIRA SINGH Ot F41.9 ANXIETY DISORDER, UNSPECIFIED 01/06/2017 SHIRA SINGH Ot F43.9 REACTION TO SEVERE STRESS, UNSPECIFIED 01/06/2017 SHIRA SINGH Ot F60.9 PERSONALITY DISORDER, UNSPECIFIED 01/06/2017 SHIRA SINGH Ot G43.909 MIGRAINE, UNSP, NOT INTRACTABLE, WITHOUT 01/06/2017 SHIRA SINGH Ot N39.0 URINARY TRACT INFECTION, SITE NOT SPECIF 01/06/2017 SHIRA SINGH Ot R45.851 SUICIDAL IDEATIONS 01/06/2017 SHIRA SINGH Ot Z91.5 PERSONAL HISTORY OF SELF-HARM 01/29/2017 SHEBA DEAN, INO Emery Ot E03.9 HYPOTHYROIDISM, UNSPECIFIED 01/29/2017 SHEBA DEAN, INO Emery Ot F25.9 SCHIZOAFFECTIVE DISORDER, UNSPECIFIED 01/29/2017 INO SCRUGGS MD Ot F31.9 BIPOLAR DISORDER, UNSPECIFIED 01/29/2017 INO SCRUGGS MD Ot F41.9 ANXIETY DISORDER, UNSPECIFIED 01/29/2017 INO SCRUGGS MD Ot 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 01/29/2017 INO SCRUGGS MD Ot R45.851 SUICIDAL IDEATIONS 05/20/2017 BETTINA DO, DAVID K Ot E03.9 HYPOTHYROIDISM, UNSPECIFIED 05/20/2017 BETTINA DO, DAVID K Ot F20.9 SCHIZOPHRENIA, UNSPECIFIED 05/20/2017 BETTINA DO, DAVID K Ot F31.9 BIPOLAR DISORDER, UNSPECIFIED 05/20/2017 BETTINA DO, DAVID K Ot F41.9 ANXIETY DISORDER, UNSPECIFIED 05/20/2017 BETTINA DO, DAVID K Ot G43.909 MIGRAINE, UNSP, NOT INTRACTABLE, WITHOUT 05/20/2017 BETTINA DO DAVID K Ot R45.851 SUICIDAL IDEATIONS 05/20/2017 SHANTELL DUNBAR DOA K Ot Z88.8 ALLERGY STATUS TO OTH DRUG/MEDS/BIOL SUB 05/20/2017 SHANTELL DUNBAR DOA K Ot Z91.5 PERSONAL HISTORY OF SELF-HARM 05/22/2017 BETTINA DAVID DAVID K Ot E03.9 HYPOTHYROIDISM, UNSPECIFIED 05/22/2017 BETTINA DAVID K Ot F20.9 SCHIZOPHRENIA, UNSPECIFIED 05/22/2017 BETTINA DO, DAVID K Ot F31.9 BIPOLAR DISORDER, UNSPECIFIED 05/22/2017 BETTINA DO, DAVID K Ot F41.9 ANXIETY DISORDER, UNSPECIFIED 05/22/2017 BETTINA , DAVID K Ot G43.909 MIGRAINE, UNSP, NOT INTRACTABLE, WITHOUT 05/22/2017 BETTINA SHANTELL DAVIDA K Ot R45.851 SUICIDAL IDEATIONS 05/22/2017 BETTINA DAVID Zeb Ot Z88.8 ALLERGY STATUS TO OTH DRUG/MEDS/BIOL SUB 05/22/2017 BETTINA SHANTELL DAVIDA K Ot Z91.5 PERSONAL HISTORY OF SELF-HARM 07/11/2017 DANI MARTIN APRN Ot E03.9 HYPOTHYROIDISM, UNSPECIFIED 07/11/2017 DANI MARTIN APRN Ot F20.9 SCHIZOPHRENIA, UNSPECIFIED 07/11/2017 DANI MARTIN APRN Ot F31.9 BIPOLAR DISORDER, UNSPECIFIED 07/11/2017 DANI MARTIN APRN Ot F41.9 ANXIETY DISORDER, UNSPECIFIED 07/11/2017 DANI MARTIN APRN Ot G43.909 MIGRAINE, UNSP, NOT INTRACTABLE, WITHOUT 07/11/2017 DANI MARTIN APRN Ot Z88.8 ALLERGY STATUS TO OTH DRUG/MEDS/BIOL SUB 07/11/2017 DANI MARTIN APRN Ot Z91.5 PERSONAL HISTORY OF SELF-HARM Procedures There is no data. Results Test Result Range Pap Lb, rfx HPV ASCU - 12/04/15 16:18 DIAGNOSIS: Comment Specimen adequacy: Comment Clinician provided ICD10: Comment Performed by: Comment . . Note: Comment . Comment Genital Culture, Routine - 12/04/15 16:18 Genital Culture, Routine Note Complete urinalysis with reflex to culture - 04/14/16 20:44 Urine color determination YELLOW NRG Urine clarity determination SLIGHTLY CLOUDY NRG Urine pH measurement by test strip 7 5-9 Specific gravity of urine by test strip 1.010 1.016- 1.022 Urine protein assay by test strip, semi-quantitative NEGATIVE NEGATIVE Urine glucose detection by automated test strip NEGATIVE NEGATIVE Erythrocytes detection in urine sediment by light microscopy NEGATIVE NEGATIVE Urine ketones detection by automated test strip NEGATIVE NEGATIVE Urine nitrite detection by test strip NEGATIVE NEGATIVE Urine total bilirubin detection by test strip NEGATIVE NEGATIVE Urine urobilinogen measurement by automated test strip (mass/volume) NORMAL NORMAL Urine leukocyte esterase detection by dipstick NEGATIVE NEGATIVE Automated urine sediment erythrocyte count by microscopy (number/high power field) NONE NRG Automated urine sediment leukocyte count by microscopy (number/high power field ) [HPF] NRG Bacteria detection in urine sediment by light microscopy NEGATIVE NRG Squamous epithelial cells detection in urine sediment by light microscopy >50 NRG Crystals detection in urine sediment by light microscopy NONE NRG Casts detection in urine sediment by light microscopy NONE NRG Mucus detection in urine sediment by light microscopy NEGATIVE NRG Complete urinalysis with reflex to culture NO NRG Renal epithelial cells detection in urine sediment by light microscopy NONE NRG Urine drug screening test - 04/14/16 20:44 Urine phencyclidine detection by screening method NEGATIVE NEGATIVE Urine benzodiazepines detection by screening method NEGATIVE NEGATIVE Urine cocaine detection NEGATIVE NEGATIVE Urine amphetamines detection by screening method NEGATIVE NEGATIVE Urine methamphetamine detection by screening method NEGATIVE NEGATIVE Urine cannabinoids detection by screening method NEGATIVE NEGATIVE Urine opiates detection by screening method NEGATIVE NEGATIVE Urine barbiturates detection NEGATIVE NEGATIVE Screening urine tricyclic antidepressants detection NEGATIVE NEGATIVE Urine methadone detection by screening method NEGATIVE NEGATIVE Urine oxycodone detection NEGATIVE NEGATIVE Urine propoxyphene detection NEGATIVE NEGATIVE Complete blood count (CBC) with automated white blood cell (WBC) differential - 04/14/16 20:55 Blood leukocytes automated count (number/volume) 7.4 10*3/uL 4.3-11.0 Blood erythrocytes automated count (number/volume) 4.58 10*6/uL 4.35-5.85 Venous blood hemoglobin measurement (mass/volume) 12.7 g/dL 11.5-16.0 Blood hematocrit (volume fraction) 38 % 35-52 Automated erythrocyte mean corpuscular volume 83 [foz_us] 80-99 Automated erythrocyte mean corpuscular hemoglobin (mass per erythrocyte) 28 pg 25-34 Automated erythrocyte mean corpuscular hemoglobin concentration measurement ( mass/volume) 33 g/dL 32-36 Automated erythrocyte distribution width ratio 13.8 % 10.0-14.5 Automated blood platelet count (count/volume) 286 10*3/uL 130-400 Automated blood platelet mean volume measurement 10.4 [foz_us] 7.4-10.4 Automated blood neutrophils/100 leukocytes 56 % 42-75 Automated blood lymphocytes/100 leukocytes 35 % 12-44 Blood monocytes/100 leukocytes 6 % 0-12 Automated blood eosinophils/100 leukocytes 2 % 0-10 Automated blood basophils/100 leukocytes 0 % 0-10 Blood neutrophils automated count (number/volume) 4.1 10*3 1.8-7.8 Blood lymphocytes automated count (number/volume) 2.6 10*3 1.0-4.0 Blood monocytes automated count (number/volume) 0.5 10*3 0.0-1.0 Automated eosinophil count 0.2 10*3/uL 0.0-0.3 Automated blood basophil count (count/volume) 0.0 10*3/uL 0.0-0.1 Comprehensive metabolic panel - 04/14/16 20:55 Serum or plasma sodium measurement (moles/volume) 141 mmol/L 135-145 Serum or plasma potassium measurement (moles/volume) 3.5 mmol/L 3.6-5.0 Serum or plasma chloride measurement (moles/volume) 110 mmol/L 98-107 Carbon dioxide 19 mmol/L 21-32 Serum or plasma anion gap determination (moles/volume) 12 mmol/L 5-14 Serum or plasma urea nitrogen measurement (mass/volume) 9 mg/dL 7-18 Serum or plasma creatinine measurement (mass/volume) 0.86 mg/dL 0.60-1.30 Serum or plasma urea nitrogen/creatinine mass ratio 10 NRG Serum or plasma creatinine measurement with calculation of estimated glomerular filtration rate > NRG Serum or plasma glucose measurement (mass/volume) 102 mg/dL 70-105 Serum or plasma calcium measurement (mass/volume) 9.0 mg/dL 8.5-10.1 Serum or plasma total bilirubin measurement (mass/volume) 0.3 mg/dL 0.1-1.0 Serum or plasma alkaline phosphatase measurement (enzymatic activity/volume) 85 U/L 40-136 Serum or plasma aspartate aminotransferase measurement (enzymatic activity/ volume) 21 U/L 5-34 Serum or plasma alanine aminotransferase measurement (enzymatic activity/volume ) 15 U/L 0-55 Serum or plasma protein measurement (mass/volume) 7.0 g/dL 6.4-8.2 Serum or plasma albumin measurement (mass/volume) 4.3 g/dL 3.2-4.5 THYROID STIMULATING HORMONE - 04/14/16 20:55 THYROID STIMULATING HORMONE 5.34 u[iU]/mL 0.35-4.94 Serum or plasma ethanol measurement (mass/volume) - 04/14/16 20:55 Serum or plasma ethanol measurement (mass/volume) < mg/dL <10 LITHIUM LEVEL - 04/14/16 20:55 [place] [mass/volume] in serum or plasma 0.5 % 0.5-1.5 CBC With Differential/Platelet - 06/07/16 08:22 WBC 4.7 x10E3/uL 3.4-10.8 RBC 4.99 x10E6/uL 3.77-5.28 Hemoglobin 13.3 g/dL 11.1-15.9 Hematocrit 41.4 % 34.0-46.6 MCV 83 fL 79-97 MCH 26.7 pg 26.6-33.0 MCHC 32.1 g/dL 31.5-35.7 RDW 14.1 % 12.3-15.4 Platelets 259 x10E3/uL 150-379 Neutrophils 50 % Lymphs 38 % Monocytes 6 % Eos 5 % Basos 0 % Neutrophils (Absolute) 2.4 x10E3/uL 1.4-7.0 Lymphs (Absolute) 1.8 x10E3/uL 0.7-3.1 Monocytes(Absolute) 0.3 x10E3/uL 0.1-0.9 Eos (Absolute) 0.2 x10E3/uL 0.0-0.4 Baso (Absolute) 0.0 x10E3/uL 0.0-0.2 Immature Granulocytes 1 % Immature Grans (Abs) 0.0 x10E3/uL 0.0-0.1 Comp. Metabolic Panel (14) - 06/07/16 08:22 Glucose, Serum 95 mg/dL 65-99 BUN 9 mg/dL 6-20 Creatinine, Serum 0.74 mg/dL 0.57-1.00 eGFR If NonAfricn Am 116 mL/min/1.73 >59 eGFR If Africn Am 134 mL/min/1.73 >59 BUN/Creatinine Ratio 12 9-23 Sodium, Serum 142 mmol/L 134-144 Potassium, Serum 4.7 mmol/L 3.5-5.2 Chloride, Serum 105 mmol/L 96-106 Carbon Dioxide, Total 19 mmol/L 18-29 Calcium, Serum 9.4 mg/dL 8.7-10.2 Protein, Total, Serum 7.1 g/dL 6.0-8.5 Albumin, Serum 4.6 g/dL 3.5-5.5 Globulin, Total 2.5 g/dL 1.5-4.5 A/G Ratio 1.8 1.2-2.2 Bilirubin, Total 0.5 mg/dL 0.0-1.2 Alkaline Phosphatase, S 97 IU/L 39-117 AST (SGOT) 19 IU/L 0-40 ALT (SGPT) 14 IU/L 0-32 Lipid Panel - 06/07/16 08:22 Cholesterol, Total 150 mg/dL 100-199 Triglycerides 110 mg/dL 0-149 HDL Cholesterol 35 mg/dL >39 VLDL Cholesterol John 22 mg/dL 5-40 LDL Cholesterol Calc 93 mg/dL 0-99 [place] (Eskalith(R)), Serum - 06/07/16 08:22 [place] (Eskalith(R)), Serum 0.5 mmol/L 0.6-1.2 Complete blood count (CBC) with automated white blood cell (WBC) differential - 07/19/16 13:19 Blood leukocytes automated count (number/volume) 7.7 10*3/uL 4.3-11.0 Blood erythrocytes automated count (number/volume) 4.97 10*6/uL 4.35-5.85 Venous blood hemoglobin measurement (mass/volume) 13.2 g/dL 11.5-16.0 Blood hematocrit (volume fraction) 41 % 35-52 Automated erythrocyte mean corpuscular volume 83 [foz_us] 80-99 Automated erythrocyte mean corpuscular hemoglobin (mass per erythrocyte) 27 pg 25-34 Automated erythrocyte mean corpuscular hemoglobin concentration measurement ( mass/volume) 32 g/dL 32-36 Automated erythrocyte distribution width ratio 14.1 % 10.0-14.5 Automated blood platelet count (count/volume) 303 10*3/uL 130-400 Automated blood platelet mean volume measurement 10.6 [foz_us] 7.4-10.4 Automated blood neutrophils/100 leukocytes 60 % 42-75 Automated blood lymphocytes/100 leukocytes 31 % 12-44 Blood monocytes/100 leukocytes 7 % 0-12 Automated blood eosinophils/100 leukocytes 2 % 0-10 Automated blood basophils/100 leukocytes 0 % 0-10 Blood neutrophils automated count (number/volume) 4.6 10*3 1.8-7.8 Blood lymphocytes automated count (number/volume) 2.4 10*3 1.0-4.0 Blood monocytes automated count (number/volume) 0.5 10*3 0.0-1.0 Automated eosinophil count 0.2 10*3/uL 0.0-0.3 Automated blood basophil count (count/volume) 0.0 10*3/uL 0.0-0.1 Serum or plasma choriogonadotropin ( test) detection - 07/19/16 13:19 Serum or plasma choriogonadotropin ( test) detection NEGATIVE NEGATIVE Comprehensive metabolic panel - 07/19/16 13:19 Serum or plasma sodium measurement (moles/volume) 139 mmol/L 135-145 Serum or plasma potassium measurement (moles/volume) 3.7 mmol/L 3.6-5.0 Serum or plasma chloride measurement (moles/volume) 109 mmol/L 98-107 Carbon dioxide 22 mmol/L 21-32 Serum or plasma anion gap determination (moles/volume) 8 mmol/L 5-14 Serum or plasma urea nitrogen measurement (mass/volume) 7 mg/dL 7-18 Serum or plasma creatinine measurement (mass/volume) 0.76 mg/dL 0.60-1.30 Serum or plasma urea nitrogen/creatinine mass ratio 9 NRG Serum or plasma creatinine measurement with calculation of estimated glomerular filtration rate > NRG Serum or plasma glucose measurement (mass/volume) 80 mg/dL 70-105 Serum or plasma calcium measurement (mass/volume) 9.2 mg/dL 8.5-10.1 Serum or plasma total bilirubin measurement (mass/volume) 0.3 mg/dL 0.1-1.0 Serum or plasma alkaline phosphatase measurement (enzymatic activity/volume) 82 U/L 40-136 Serum or plasma aspartate aminotransferase measurement (enzymatic activity/ volume) 21 U/L 5-34 Serum or plasma alanine aminotransferase measurement (enzymatic activity/volume ) 19 U/L 0-55 Serum or plasma protein measurement (mass/volume) 7.3 g/dL 6.4-8.2 Serum or plasma albumin measurement (mass/volume) 4.5 g/dL 3.2-4.5 Serum or plasma thyrotropin measurement by detection limit <=0.05 miu/l (units/ volume) - 07/19/16 13:19 Serum or plasma thyrotropin measurement by detection limit <=0.05 miu/l (units/ volume) 2.53 u[iU]/mL 0.35-4.94 Serum or plasma salicylates measurement (mass/volume) - 07/19/16 13:19 Serum or plasma salicylates measurement (mass/volume) < mg/dL 5.0-20.0 Serum or plasma acetaminophen measurement (mass/volume) - 07/19/16 13:19 Serum or plasma acetaminophen measurement (mass/volume) < ug/mL 10-30 Serum or plasma ethanol measurement (mass/volume) - 07/19/16 13:19 Serum or plasma ethanol measurement (mass/volume) < mg/dL <10 Urine drug screening test - 07/19/16 13:21 Urine phencyclidine detection by screening method NEGATIVE NEGATIVE Urine benzodiazepines detection by screening method NEGATIVE NEGATIVE Urine cocaine detection NEGATIVE NEGATIVE Urine amphetamines detection by screening method NEGATIVE NEGATIVE Urine methamphetamine detection by screening method NEGATIVE NEGATIVE Urine cannabinoids detection by screening method NEGATIVE NEGATIVE Urine opiates detection by screening method NEGATIVE NEGATIVE Urine barbiturates detection NEGATIVE NEGATIVE Screening urine tricyclic antidepressants detection NEGATIVE NEGATIVE Urine methadone detection by screening method NEGATIVE NEGATIVE Urine oxycodone detection NEGATIVE NEGATIVE Urine propoxyphene detection NEGATIVE NEGATIVE Complete urinalysis with reflex to culture - 07/19/16 13:21 Urine color determination YELLOW NRG Urine clarity determination SLIGHTLY CLOUDY NRG Urine pH measurement by test strip 8 5-9 Specific gravity of urine by test strip 1.015 1.016- 1.022 Urine protein assay by test strip, semi-quantitative NEGATIVE NEGATIVE Urine glucose detection by automated test strip NEGATIVE NEGATIVE Erythrocytes detection in urine sediment by light microscopy NEGATIVE NEGATIVE Urine ketones detection by automated test strip NEGATIVE NEGATIVE Urine nitrite detection by test strip NEGATIVE NEGATIVE Urine total bilirubin detection by test strip NEGATIVE NEGATIVE Urine urobilinogen measurement by automated test strip (mass/volume) NORMAL NORMAL Urine leukocyte esterase detection by dipstick NEGATIVE NEGATIVE Automated urine sediment erythrocyte count by microscopy (number/high power field) NONE NRG Automated urine sediment leukocyte count by microscopy (number/high power field ) NONE NRG Bacteria detection in urine sediment by light microscopy NEGATIVE NRG Squamous epithelial cells detection in urine sediment by light microscopy >50 NRG Crystals detection in urine sediment by light microscopy NONE NRG Casts detection in urine sediment by light microscopy NONE NRG Mucus detection in urine sediment by light microscopy NEGATIVE NRG Complete urinalysis with reflex to culture NO NRG Complete blood count (CBC) with automated white blood cell (WBC) differential - 10/17/16 04:34 Blood leukocytes automated count (number/volume) 7.8 10*3/uL 4.3-11.0 Blood erythrocytes automated count (number/volume) 4.76 10*6/uL 4.35-5.85 Venous blood hemoglobin measurement (mass/volume) 12.5 g/dL 11.5-16.0 Blood hematocrit (volume fraction) 39 % 35-52 Automated erythrocyte mean corpuscular volume 82 [foz_us] 80-99 Automated erythrocyte mean corpuscular hemoglobin (mass per erythrocyte) 26 pg 25-34 Automated erythrocyte mean corpuscular hemoglobin concentration measurement ( mass/volume) 32 g/dL 32-36 Automated erythrocyte distribution width ratio 14.8 % 10.0-14.5 Automated blood platelet count (count/volume) 297 10*3/uL 130-400 Automated blood platelet mean volume measurement 9.8 [foz_us] 7.4-10.4 Automated blood neutrophils/100 leukocytes 62 % 42-75 Automated blood lymphocytes/100 leukocytes 29 % 12-44 Blood monocytes/100 leukocytes 6 % 0-12 Automated blood eosinophils/100 leukocytes 3 % 0-10 Automated blood basophils/100 leukocytes 0 % 0-10 Blood neutrophils automated count (number/volume) 4.9 10*3 1.8-7.8 Blood lymphocytes automated count (number/volume) 2.3 10*3 1.0-4.0 Blood monocytes automated count (number/volume) 0.4 10*3 0.0-1.0 Automated eosinophil count 0.2 10*3/uL 0.0-0.3 Automated blood basophil count (count/volume) 0.0 10*3/uL 0.0-0.1 Serum or plasma choriogonadotropin ( test) detection - 10/17/16 04:34 Serum or plasma choriogonadotropin ( test) detection NEGATIVE NEGATIVE Whole blood basic metabolic panel - 10/17/16 04:34 Serum or plasma sodium measurement (moles/volume) 139 mmol/L 135-145 Serum or plasma potassium measurement (moles/volume) 3.7 mmol/L 3.6-5.0 Serum or plasma chloride measurement (moles/volume) 108 mmol/L 98-107 Carbon dioxide 23 mmol/L 21-32 Serum or plasma anion gap determination (moles/volume) 8 mmol/L 5-14 Serum or plasma urea nitrogen measurement (mass/volume) 9 mg/dL 7-18 Serum or plasma creatinine measurement (mass/volume) 0.75 mg/dL 0.60-1.30 Serum or plasma urea nitrogen/creatinine mass ratio 12 NRG Serum or plasma creatinine measurement with calculation of estimated glomerular filtration rate > NRG Serum or plasma glucose measurement (mass/volume) 105 mg/dL 70-105 Serum or plasma calcium measurement (mass/volume) 8.8 mg/dL 8.5-10.1 Serum or plasma ethanol measurement (mass/volume) - 10/17/16 04:34 Serum or plasma ethanol measurement (mass/volume) < mg/dL <10 LITHIUM LEVEL - 10/17/16 04:34 [place] [mass/volume] in serum or plasma 0.6 % 0.5-1.5 Urine drug screening test - 10/17/16 05:19 Urine phencyclidine detection by screening method NEGATIVE NEGATIVE Urine benzodiazepines detection by screening method NEGATIVE NEGATIVE Urine cocaine detection NEGATIVE NEGATIVE Urine amphetamines detection by screening method NEGATIVE NEGATIVE Urine methamphetamine detection by screening method NEGATIVE NEGATIVE Urine cannabinoids detection by screening method NEGATIVE NEGATIVE Urine opiates detection by screening method NEGATIVE NEGATIVE Urine barbiturates detection NEGATIVE NEGATIVE Screening urine tricyclic antidepressants detection NEGATIVE NEGATIVE Urine methadone detection by screening method NEGATIVE NEGATIVE Urine oxycodone detection NEGATIVE NEGATIVE Urine propoxyphene detection NEGATIVE NEGATIVE Complete blood count (CBC) with automated white blood cell (WBC) differential - 12/22/16 22:50 Blood leukocytes automated count (number/volume) 10.7 10*3/uL 4.3-11.0 Blood erythrocytes automated count (number/volume) 5.05 10*6/uL 4.35-5.85 Venous blood hemoglobin measurement (mass/volume) 13.3 g/dL 11.5-16.0 Blood hematocrit (volume fraction) 41 % 35-52 Automated erythrocyte mean corpuscular volume 81 [foz_us] 80-99 Automated erythrocyte mean corpuscular hemoglobin (mass per erythrocyte) 26 pg 25-34 Automated erythrocyte mean corpuscular hemoglobin concentration measurement ( mass/volume) 32 g/dL 32-36 Automated erythrocyte distribution width ratio 14.2 % 10.0-14.5 Automated blood platelet count (count/volume) 280 10*3/uL 130-400 Automated blood platelet mean volume measurement 11.0 [foz_us] 7.4-10.4 Automated blood neutrophils/100 leukocytes 68 % 42-75 Automated blood lymphocytes/100 leukocytes 24 % 12-44 Blood monocytes/100 leukocytes 5 % 0-12 Automated blood eosinophils/100 leukocytes 2 % 0-10 Automated blood basophils/100 leukocytes 0 % 0-10 Blood neutrophils automated count (number/volume) 7.3 10*3 1.8-7.8 Blood lymphocytes automated count (number/volume) 2.6 10*3 1.0-4.0 Blood monocytes automated count (number/volume) 0.6 10*3 0.0-1.0 Automated eosinophil count 0.3 10*3/uL 0.0-0.3 Automated blood basophil count (count/volume) 0.0 10*3/uL 0.0-0.1 Serum or plasma choriogonadotropin ( test) detection - 12/22/16 22:50 Serum or plasma choriogonadotropin ( test) detection NEGATIVE NEGATIVE Comprehensive metabolic panel - 12/22/16 22:50 Serum or plasma sodium measurement (moles/volume) 138 mmol/L 135-145 Serum or plasma potassium measurement (moles/volume) 3.8 mmol/L 3.6-5.0 Serum or plasma chloride measurement (moles/volume) 105 mmol/L 98-107 Carbon dioxide 24 mmol/L 21-32 Serum or plasma anion gap determination (moles/volume) 9 mmol/L 5-14 Serum or plasma urea nitrogen measurement (mass/volume) 8 mg/dL 7-18 Serum or plasma creatinine measurement (mass/volume) 0.78 mg/dL 0.60-1.30 Serum or plasma urea nitrogen/creatinine mass ratio 10 NRG Serum or plasma creatinine measurement with calculation of estimated glomerular filtration rate > NRG Serum or plasma glucose measurement (mass/volume) 93 mg/dL 70-105 Serum or plasma calcium measurement (mass/volume) 9.7 mg/dL 8.5-10.1 Serum or plasma total bilirubin measurement (mass/volume) 0.4 mg/dL 0.1-1.0 Serum or plasma alkaline phosphatase measurement (enzymatic activity/volume) 93 U/L 40-136 Serum or plasma aspartate aminotransferase measurement (enzymatic activity/ volume) 23 U/L 5-34 Serum or plasma alanine aminotransferase measurement (enzymatic activity/volume ) 21 U/L 0-55 Serum or plasma protein measurement (mass/volume) 7.9 g/dL 6.4-8.2 Serum or plasma albumin measurement (mass/volume) 4.5 g/dL 3.2-4.5 Magnesium - 12/22/16 22:50 Magnesium 2.5 mg/dL 1.8-2.4 THYROID STIMULATING HORMONE - 12/22/16 22:50 THYROID STIMULATING HORMONE 3.72 u[iU]/mL 0.35-4.94 Serum or plasma thyroxine (T4) free measurement (mass/volume) - 12/22/16 22:50 Serum or plasma thyroxine (T4) free measurement (mass/volume) 0.95 ng/dL 0.70-1.48 Serum or plasma salicylates measurement (mass/volume) - 12/22/16 22:50 Serum or plasma salicylates measurement (mass/volume) < mg/dL 5.0-20.0 Serum or plasma acetaminophen measurement (mass/volume) - 12/22/16 22:50 Serum or plasma acetaminophen measurement (mass/volume) < ug/mL 10-30 Serum or plasma ethanol measurement (mass/volume) - 12/22/16 22:50 Serum or plasma ethanol measurement (mass/volume) < mg/dL <10 LITHIUM LEVEL - 12/22/16 22:50 [place] [mass/volume] in serum or plasma 0.6 % 0.5-1.5 Complete urinalysis with reflex to culture - 12/22/16 22:55 Urine color determination YELLOW NRG Urine clarity determination SLIGHTLY CLOUDY NRG Urine pH measurement by test strip 7 5-9 Specific gravity of urine by test strip 1.010 1.016- 1.022 Urine protein assay by test strip, semi-quantitative NEGATIVE NEGATIVE Urine glucose detection by automated test strip NEGATIVE NEGATIVE Erythrocytes detection in urine sediment by light microscopy NEGATIVE NEGATIVE Urine ketones detection by automated test strip NEGATIVE NEGATIVE Urine nitrite detection by test strip NEGATIVE NEGATIVE Urine total bilirubin detection by test strip NEGATIVE NEGATIVE Urine urobilinogen measurement by automated test strip (mass/volume) NORMAL NORMAL Urine leukocyte esterase detection by dipstick 2+ NEGATIVE Automated urine sediment erythrocyte count by microscopy (number/high power field) NONE NRG Automated urine sediment leukocyte count by microscopy (number/high power field ) [HPF] NRG Bacteria detection in urine sediment by light microscopy TRACE NRG Squamous epithelial cells detection in urine sediment by light microscopy >50 NRG Crystals detection in urine sediment by light microscopy NONE NRG Casts detection in urine sediment by light microscopy NONE NRG Mucus detection in urine sediment by light microscopy NEGATIVE NRG Complete urinalysis with reflex to culture NO NRG Urine drug screening test - 12/22/16 22:55 Urine phencyclidine detection by screening method NEGATIVE NEGATIVE Urine benzodiazepines detection by screening method NEGATIVE NEGATIVE Urine cocaine detection NEGATIVE NEGATIVE Urine amphetamines detection by screening method NEGATIVE NEGATIVE Urine methamphetamine detection by screening method NEGATIVE NEGATIVE Urine cannabinoids detection by screening method NEGATIVE NEGATIVE Urine opiates detection by screening method NEGATIVE NEGATIVE Urine barbiturates detection NEGATIVE NEGATIVE Screening urine tricyclic antidepressants detection NEGATIVE NEGATIVE Urine methadone detection by screening method NEGATIVE NEGATIVE Urine oxycodone detection NEGATIVE NEGATIVE Urine propoxyphene detection NEGATIVE NEGATIVE Complete blood count (CBC) with automated white blood cell (WBC) differential - 12/27/16 23:59 Blood leukocytes automated count (number/volume) 10.1 10*3/uL 4.3-11.0 Blood erythrocytes automated count (number/volume) 4.77 10*6/uL 4.35-5.85 Venous blood hemoglobin measurement (mass/volume) 12.6 g/dL 11.5-16.0 Blood hematocrit (volume fraction) 39 % 35-52 Automated erythrocyte mean corpuscular volume 81 [foz_us] 80-99 Automated erythrocyte mean corpuscular hemoglobin (mass per erythrocyte) 26 pg 25-34 Automated erythrocyte mean corpuscular hemoglobin concentration measurement ( mass/volume) 33 g/dL 32-36 Automated erythrocyte distribution width ratio 14.5 % 10.0-14.5 Automated blood platelet count (count/volume) 274 10*3/uL 130-400 Automated blood platelet mean volume measurement 11.3 [foz_us] 7.4-10.4 Automated blood neutrophils/100 leukocytes 64 % 42-75 Automated blood lymphocytes/100 leukocytes 27 % 12-44 Blood monocytes/100 leukocytes 5 % 0-12 Automated blood eosinophils/100 leukocytes 4 % 0-10 Automated blood basophils/100 leukocytes 0 % 0-10 Blood neutrophils automated count (number/volume) 6.4 10*3 1.8-7.8 Blood lymphocytes automated count (number/volume) 2.7 10*3 1.0-4.0 Blood monocytes automated count (number/volume) 0.6 10*3 0.0-1.0 Automated eosinophil count 0.4 10*3/uL 0.0-0.3 Automated blood basophil count (count/volume) 0.0 10*3/uL 0.0-0.1 Serum or plasma choriogonadotropin ( test) detection - 12/27/16 23:59 Serum or plasma choriogonadotropin ( test) detection NEGATIVE NEGATIVE Comprehensive metabolic panel - 12/28/16 00:10 Serum or plasma sodium measurement (moles/volume) 138 mmol/L 135-145 Serum or plasma potassium measurement (moles/volume) 3.6 mmol/L 3.6-5.0 Serum or plasma chloride measurement (moles/volume) 107 mmol/L 98-107 Carbon dioxide 21 mmol/L 21-32 Serum or plasma anion gap determination (moles/volume) 10 mmol/L 5-14 Serum or plasma urea nitrogen measurement (mass/volume) 8 mg/dL 7-18 Serum or plasma creatinine measurement (mass/volume) 0.77 mg/dL 0.60-1.30 Serum or plasma urea nitrogen/creatinine mass ratio 10 NRG Serum or plasma creatinine measurement with calculation of estimated glomerular filtration rate > NRG Serum or plasma glucose measurement (mass/volume) 83 mg/dL 70-105 Serum or plasma calcium measurement (mass/volume) 9.2 mg/dL 8.5-10.1 Serum or plasma total bilirubin measurement (mass/volume) 0.3 mg/dL 0.1-1.0 Serum or plasma alkaline phosphatase measurement (enzymatic activity/volume) 81 U/L 40-136 Serum or plasma aspartate aminotransferase measurement (enzymatic activity/ volume) 21 U/L 5-34 Serum or plasma alanine aminotransferase measurement (enzymatic activity/volume ) 19 U/L 0-55 Serum or plasma protein measurement (mass/volume) 6.9 g/dL 6.4-8.2 Serum or plasma albumin measurement (mass/volume) 4.1 g/dL 3.2-4.5 Magnesium - 12/28/16 00:10 Magnesium 2.3 mg/dL 1.8-2.4 Serum or plasma thyrotropin measurement by detection limit <=0.05 miu/l (units/ volume) - 12/28/16 00:10 Serum or plasma thyrotropin measurement by detection limit <=0.05 miu/l (units/ volume) 4.00 u[iU]/mL 0.35-4.94 Serum or plasma salicylates measurement (mass/volume) - 12/28/16 00:10 Serum or plasma salicylates measurement (mass/volume) < mg/dL 5.0-20.0 Serum or plasma acetaminophen measurement (mass/volume) - 12/28/16 00:10 Serum or plasma acetaminophen measurement (mass/volume) < ug/mL 10-30 Serum or plasma ethanol measurement (mass/volume) - 12/28/16 00:10 Serum or plasma ethanol measurement (mass/volume) < mg/dL <10 LITHIUM LEVEL - 12/28/16 00:10 [place] [mass/volume] in serum or plasma 1.47 H 0.60- 1.40 Complete urinalysis with reflex to culture - 12/28/16 01:43 Urine color determination YELLOW NRG Urine clarity determination SLIGHTLY CLOUDY NRG Urine pH measurement by test strip 7 5-9 Specific gravity of urine by test strip 1.005 1.016- 1.022 Urine protein assay by test strip, semi-quantitative 1+ NEGATIVE Urine glucose detection by automated test strip NEGATIVE NEGATIVE Erythrocytes detection in urine sediment by light microscopy 1+ NEGATIVE Urine ketones detection by automated test strip NEGATIVE NEGATIVE Urine nitrite detection by test strip NEGATIVE NEGATIVE Urine total bilirubin detection by test strip NEGATIVE NEGATIVE Urine urobilinogen measurement by automated test strip (mass/volume) NORMAL NORMAL Urine leukocyte esterase detection by dipstick 2+ NEGATIVE Automated urine sediment erythrocyte count by microscopy (number/high power field) RARE NRG Automated urine sediment leukocyte count by microscopy (number/high power field ) [HPF] NRG Bacteria detection in urine sediment by light microscopy LARGE NRG Squamous epithelial cells detection in urine sediment by light microscopy 25-50 NRG Crystals detection in urine sediment by light microscopy NONE NRG Casts detection in urine sediment by light microscopy NONE NRG Mucus detection in urine sediment by light microscopy NEGATIVE NRG Complete urinalysis with reflex to culture YES NRG Urine drug screening test - 12/28/16 01:43 Urine phencyclidine detection by screening method NEGATIVE NEGATIVE Urine benzodiazepines detection by screening method NEGATIVE NEGATIVE Urine cocaine detection NEGATIVE NEGATIVE Urine amphetamines detection by screening method NEGATIVE NEGATIVE Urine methamphetamine detection by screening method NEGATIVE NEGATIVE Urine cannabinoids detection by screening method NEGATIVE NEGATIVE Urine opiates detection by screening method NEGATIVE NEGATIVE Urine barbiturates detection NEGATIVE NEGATIVE Screening urine tricyclic antidepressants detection NEGATIVE NEGATIVE Urine methadone detection by screening method NEGATIVE NEGATIVE Urine oxycodone detection NEGATIVE NEGATIVE Urine propoxyphene detection NEGATIVE NEGATIVE Bacterial urine culture - 12/28/16 01:43 URINE CULTURE RESULTS 10,000/ML - 100,000/ML NRG Methicillin resistant Staphylococcus aureus (MRSA) screening culture - 03:30 Methicillin resistant Staphylococcus aureus (MRSA) screening culture NEG NRG Complete blood count (CBC) with automated white blood cell (WBC) differential - 12/28/16 03:36 Blood leukocytes automated count (number/volume) 10.9 10*3/uL 4.3-11.0 Blood erythrocytes automated count (number/volume) 4.65 10*6/uL 4.35-5.85 Venous blood hemoglobin measurement (mass/volume) 12.5 g/dL 11.5-16.0 Blood hematocrit (volume fraction) 38 % 35-52 Automated erythrocyte mean corpuscular volume 82 [foz_us] 80-99 Automated erythrocyte mean corpuscular hemoglobin (mass per erythrocyte) 27 pg 25-34 Automated erythrocyte mean corpuscular hemoglobin concentration measurement ( mass/volume) 33 g/dL 32-36 Automated erythrocyte distribution width ratio 14.4 % 10.0-14.5 Automated blood platelet count (count/volume) 284 10*3/uL 130-400 Automated blood platelet mean volume measurement 10.7 [foz_us] 7.4-10.4 Automated blood neutrophils/100 leukocytes 73 % 42-75 Automated blood lymphocytes/100 leukocytes 20 % 12-44 Blood monocytes/100 leukocytes 5 % 0-12 Automated blood eosinophils/100 leukocytes 2 % 0-10 Automated blood basophils/100 leukocytes 0 % 0-10 Blood neutrophils automated count (number/volume) 8.0 10*3 1.8-7.8 Blood lymphocytes automated count (number/volume) 2.2 10*3 1.0-4.0 Blood monocytes automated count (number/volume) 0.6 10*3 0.0-1.0 Automated eosinophil count 0.2 10*3/uL 0.0-0.3 Automated blood basophil count (count/volume) 0.0 10*3/uL 0.0-0.1 Whole blood basic metabolic panel - 12/28/16 03:36 Serum or plasma sodium measurement (moles/volume) 140 mmol/L 135-145 Serum or plasma potassium measurement (moles/volume) 3.6 mmol/L 3.6-5.0 Serum or plasma chloride measurement (moles/volume) 109 mmol/L 98-107 Carbon dioxide 22 mmol/L 21-32 Serum or plasma anion gap determination (moles/volume) 9 mmol/L 5-14 Serum or plasma urea nitrogen measurement (mass/volume) 7 mg/dL 7-18 Serum or plasma creatinine measurement (mass/volume) 0.76 mg/dL 0.60-1.30 Serum or plasma urea nitrogen/creatinine mass ratio 9 NRG Serum or plasma creatinine measurement with calculation of estimated glomerular filtration rate > NRG Serum or plasma glucose measurement (mass/volume) 82 mg/dL 70-105 Serum or plasma calcium measurement (mass/volume) 9.4 mg/dL 8.5-10.1 Serum or plasma phosphate measurement (mass/volume) - 12/28/16 03:36 Serum or plasma phosphate measurement (mass/volume) 2.4 mg/dL 2.3-4.7 Magnesium - 12/28/16 03:36 Magnesium 2.3 mg/dL 1.8-2.4 LITHIUM LEVEL - 12/28/16 05:11 [place] [mass/volume] in serum or plasma 1.34 mmol/L 0.60 -1.40 LITHIUM LEVEL - 12/28/16 08:15 [place] [mass/volume] in serum or plasma 1.07 mmol/L 0.60 -1.40 Complete blood count (CBC) with automated white blood cell (WBC) differential - 01/06/17 21:45 Blood leukocytes automated count (number/volume) 9.0 10*3/uL 4.3-11.0 Blood erythrocytes automated count (number/volume) 4.78 10*6/uL 4.35-5.85 Venous blood hemoglobin measurement (mass/volume) 12.6 g/dL 11.5-16.0 Blood hematocrit (volume fraction) 39 % 35-52 Automated erythrocyte mean corpuscular volume 81 [foz_us] 80-99 Automated erythrocyte mean corpuscular hemoglobin (mass per erythrocyte) 26 pg 25-34 Automated erythrocyte mean corpuscular hemoglobin concentration measurement ( mass/volume) 33 g/dL 32-36 Automated erythrocyte distribution width ratio 14.4 % 10.0-14.5 Automated blood platelet count (count/volume) 306 10*3/uL 130-400 Automated blood platelet mean volume measurement 10.3 [foz_us] 7.4-10.4 Automated blood neutrophils/100 leukocytes 61 % 42-75 Automated blood lymphocytes/100 leukocytes 28 % 12-44 Blood monocytes/100 leukocytes 9 % 0-12 Automated blood eosinophils/100 leukocytes 2 % 0-10 Automated blood basophils/100 leukocytes 0 % 0-10 Blood neutrophils automated count (number/volume) 5.5 10*3 1.8-7.8 Blood lymphocytes automated count (number/volume) 2.5 10*3 1.0-4.0 Blood monocytes automated count (number/volume) 0.8 10*3 0.0-1.0 Automated eosinophil count 0.2 10*3/uL 0.0-0.3 Automated blood basophil count (count/volume) 0.0 10*3/uL 0.0-0.1 Comprehensive metabolic panel - 01/06/17 21:45 Serum or plasma sodium measurement (moles/volume) 140 mmol/L 135-145 Serum or plasma potassium measurement (moles/volume) 3.5 mmol/L 3.6-5.0 Serum or plasma chloride measurement (moles/volume) 106 mmol/L 98-107 Carbon dioxide 24 mmol/L 21-32 Serum or plasma anion gap determination (moles/volume) 10 mmol/L 5-14 Serum or plasma urea nitrogen measurement (mass/volume) 9 mg/dL 7-18 Serum or plasma creatinine measurement (mass/volume) 0.67 mg/dL 0.60-1.30 Serum or plasma urea nitrogen/creatinine mass ratio 13 NRG Serum or plasma creatinine measurement with calculation of estimated glomerular filtration rate > NRG Serum or plasma glucose measurement (mass/volume) 96 mg/dL 70-105 Serum or plasma calcium measurement (mass/volume) 9.5 mg/dL 8.5-10.1 Serum or plasma total bilirubin measurement (mass/volume) 0.2 mg/dL 0.1-1.0 Serum or plasma alkaline phosphatase measurement (enzymatic activity/volume) 86 U/L 40-136 Serum or plasma aspartate aminotransferase measurement (enzymatic activity/ volume) 14 U/L 5-34 Serum or plasma alanine aminotransferase measurement (enzymatic activity/volume ) 12 U/L 0-55 Serum or plasma protein measurement (mass/volume) 6.8 g/dL 6.4-8.2 Serum or plasma albumin measurement (mass/volume) 4.2 g/dL 3.2-4.5 Serum or plasma thyrotropin measurement by detection limit <=0.05 miu/l (units/ volume) - 01/06/17 21:45 Serum or plasma thyrotropin measurement by detection limit <=0.05 miu/l (units/ volume) 3.98 u[iU]/mL 0.35-4.94 Serum or plasma salicylates measurement (mass/volume) - 01/06/17 21:45 Serum or plasma salicylates measurement (mass/volume) < mg/dL 5.0-20.0 Serum or plasma acetaminophen measurement (mass/volume) - 01/06/17 21:45 Serum or plasma acetaminophen measurement (mass/volume) < ug/mL 10-30 Serum or plasma ethanol measurement (mass/volume) - 01/06/17 21:45 Serum or plasma ethanol measurement (mass/volume) < mg/dL <10 Valproic acid - 01/06/17 21:45 Valproic acid 48.4 ug/mL 50.0-100.0 Complete urinalysis with reflex to culture - 01/06/17 22:38 Urine color determination YELLOW NRG Urine clarity determination CLEAR NRG Urine pH measurement by test strip 7 5-9 Specific gravity of urine by test strip 1.010 1.016- 1.022 Urine protein assay by test strip, semi-quantitative NEGATIVE NEGATIVE Urine glucose detection by automated test strip NEGATIVE NEGATIVE Erythrocytes detection in urine sediment by light microscopy 1+ NEGATIVE Urine ketones detection by automated test strip NEGATIVE NEGATIVE Urine nitrite detection by test strip NEGATIVE NEGATIVE Urine total bilirubin detection by test strip NEGATIVE NEGATIVE Urine urobilinogen measurement by automated test strip (mass/volume) NORMAL NORMAL Urine leukocyte esterase detection by dipstick 2+ NEGATIVE Automated urine sediment erythrocyte count by microscopy (number/high power field) RARE NRG Automated urine sediment leukocyte count by microscopy (number/high power field ) [HPF] NRG Bacteria detection in urine sediment by light microscopy FEW NRG Squamous epithelial cells detection in urine sediment by light microscopy 10-25 NRG Crystals detection in urine sediment by light microscopy NONE NRG Casts detection in urine sediment by light microscopy NONE NRG Mucus detection in urine sediment by light microscopy NEGATIVE NRG Complete urinalysis with reflex to culture YES NRG Urine drug screening test - 01/06/17 22:38 Urine phencyclidine detection by screening method NEGATIVE NEGATIVE Urine benzodiazepines detection by screening method NEGATIVE NEGATIVE Urine cocaine detection NEGATIVE NEGATIVE Urine amphetamines detection by screening method NEGATIVE NEGATIVE Urine methamphetamine detection by screening method NEGATIVE NEGATIVE Urine cannabinoids detection by screening method NEGATIVE NEGATIVE Urine opiates detection by screening method NEGATIVE NEGATIVE Urine barbiturates detection NEGATIVE NEGATIVE Screening urine tricyclic antidepressants detection NEGATIVE NEGATIVE Urine methadone detection by screening method NEGATIVE NEGATIVE Urine oxycodone detection NEGATIVE NEGATIVE Urine propoxyphene detection NEGATIVE NEGATIVE Bacterial urine culture - 01/06/17 22:38 URINE CULTURE RESULTS <10,000/ML NRG CULTURE, GENITAL - 01/17/17 19:51 CULTURE, GENITAL SEE NOTE NRG Complete urinalysis with reflex to culture - 01/29/17 01:20 Urine color determination YELLOW NRG Urine clarity determination SLIGHTLY CLOUDY NRG Urine pH measurement by test strip 6.5 5-9 Specific gravity of urine by test strip 1.015 1.016- 1.022 Urine protein assay by test strip, semi-quantitative NEGATIVE NEGATIVE Urine glucose detection by automated test strip NEGATIVE NEGATIVE Erythrocytes detection in urine sediment by light microscopy 1+ NEGATIVE Urine ketones detection by automated test strip 1+ NEGATIVE Urine nitrite detection by test strip NEGATIVE NEGATIVE Urine total bilirubin detection by test strip NEGATIVE NEGATIVE Urine urobilinogen measurement by automated test strip (mass/volume) 1 mg/dL NORMAL Urine leukocyte esterase detection by dipstick NEGATIVE NEGATIVE Automated urine sediment erythrocyte count by microscopy (number/high power field) RARE NRG Automated urine sediment leukocyte count by microscopy (number/high power field ) NONE NRG Bacteria detection in urine sediment by light microscopy TRACE NRG Squamous epithelial cells detection in urine sediment by light microscopy 0-2 NRG Crystals detection in urine sediment by light microscopy PRESENT NRG Casts detection in urine sediment by light microscopy NONE NRG Mucus detection in urine sediment by light microscopy SMALL NRG Complete urinalysis with reflex to culture NO NRG Amorphous sediment detection in urine sediment by light microscopy MOD PRICILA URATES NRG Urine beta human chorionic gonadotropin (hCG) measurement - 01/29/17 01:20 Urine beta human chorionic gonadotropin (hCG) measurement NEGATIVE NEGATIVE Urine drug screening test - 01/29/17 01:20 Urine phencyclidine detection by screening method NEGATIVE NEGATIVE Urine benzodiazepines detection by screening method NEGATIVE NEGATIVE Urine cocaine detection NEGATIVE NEGATIVE Urine amphetamines detection by screening method NEGATIVE NEGATIVE Urine methamphetamine detection by screening method NEGATIVE NEGATIVE Urine cannabinoids detection by screening method NEGATIVE NEGATIVE Urine opiates detection by screening method NEGATIVE NEGATIVE Urine barbiturates detection NEGATIVE NEGATIVE Screening urine tricyclic antidepressants detection NEGATIVE NEGATIVE Urine methadone detection by screening method NEGATIVE NEGATIVE Urine oxycodone detection NEGATIVE NEGATIVE Urine propoxyphene detection NEGATIVE NEGATIVE Complete blood count (CBC) with automated white blood cell (WBC) differential - 01/29/17 02:20 Blood leukocytes automated count (number/volume) 8.2 10*3/uL 4.3-11.0 Blood erythrocytes automated count (number/volume) 5.04 10*6/uL 4.35-5.85 Venous blood hemoglobin measurement (mass/volume) 13.1 g/dL 11.5-16.0 Blood hematocrit (volume fraction) 41 % 35-52 Automated erythrocyte mean corpuscular volume 82 [foz_us] 80-99 Automated erythrocyte mean corpuscular hemoglobin (mass per erythrocyte) 26 pg 25-34 Automated erythrocyte mean corpuscular hemoglobin concentration measurement ( mass/volume) 32 g/dL 32-36 Automated erythrocyte distribution width ratio 14.9 % 10.0-14.5 Automated blood platelet count (count/volume) 267 10*3/uL 130-400 Automated blood platelet mean volume measurement 10.5 [foz_us] 7.4-10.4 Automated blood neutrophils/100 leukocytes 55 % 42-75 Automated blood lymphocytes/100 leukocytes 29 % 12-44 Blood monocytes/100 leukocytes 13 % 0-12 Automated blood eosinophils/100 leukocytes 3 % 0-10 Automated blood basophils/100 leukocytes 1 % 0-10 Blood neutrophils automated count (number/volume) 4.5 10*3 1.8-7.8 Blood lymphocytes automated count (number/volume) 2.4 10*3 1.0-4.0 Blood monocytes automated count (number/volume) 1.0 10*3 0.0-1.0 Automated eosinophil count 0.3 10*3/uL 0.0-0.3 Automated blood basophil count (count/volume) 0.1 10*3/uL 0.0-0.1 Comprehensive metabolic panel - 01/29/17 02:20 Serum or plasma sodium measurement (moles/volume) 139 mmol/L 135-145 Serum or plasma potassium measurement (moles/volume) 3.7 mmol/L 3.6-5.0 Serum or plasma chloride measurement (moles/volume) 107 mmol/L 98-107 Carbon dioxide 22 mmol/L 21-32 Serum or plasma anion gap determination (moles/volume) 10 mmol/L 5-14 Serum or plasma urea nitrogen measurement (mass/volume) 9 mg/dL 7-18 Serum or plasma creatinine measurement (mass/volume) 0.70 mg/dL 0.60-1.30 Serum or plasma urea nitrogen/creatinine mass ratio 13 NRG Serum or plasma creatinine measurement with calculation of estimated glomerular filtration rate > NRG Serum or plasma glucose measurement (mass/volume) 95 mg/dL 70-105 Serum or plasma calcium measurement (mass/volume) 8.9 mg/dL 8.5-10.1 Serum or plasma total bilirubin measurement (mass/volume) 0.2 mg/dL 0.1-1.0 Serum or plasma alkaline phosphatase measurement (enzymatic activity/volume) 79 U/L 40-136 Serum or plasma aspartate aminotransferase measurement (enzymatic activity/ volume) 18 U/L 5-34 Serum or plasma alanine aminotransferase measurement (enzymatic activity/volume ) 15 U/L 0-55 Serum or plasma protein measurement (mass/volume) 7.0 g/dL 6.4-8.2 Serum or plasma albumin measurement (mass/volume) 4.0 g/dL 3.2-4.5 Serum or plasma salicylates measurement (mass/volume) - 01/29/17 02:20 Serum or plasma salicylates measurement (mass/volume) < mg/dL 5.0-20.0 Serum or plasma acetaminophen measurement (mass/volume) - 01/29/17 02:20 Serum or plasma acetaminophen measurement (mass/volume) < ug/mL 10-30 Serum or plasma ethanol measurement (mass/volume) - 01/29/17 02:20 Serum or plasma ethanol measurement (mass/volume) < mg/dL <10 Serum or plasma thyrotropin measurement by detection limit <=0.05 miu/l (units/ volume) - 01/29/17 02:20 Serum or plasma thyrotropin measurement by detection limit <=0.05 miu/l (units/ volume) 2.82 u[iU]/mL 0.35-4.94 Complete urinalysis with reflex to culture - 05/20/17 02:25 Urine color determination YELLOW NRG Urine clarity determination CLEAR NRG Urine pH measurement by test strip 7 5-9 Specific gravity of urine by test strip 1.010 1.016- 1.022 Urine protein assay by test strip, semi-quantitative NEGATIVE NEGATIVE Urine glucose detection by automated test strip NEGATIVE NEGATIVE Erythrocytes detection in urine sediment by light microscopy NEGATIVE NEGATIVE Urine ketones detection by automated test strip NEGATIVE NEGATIVE Urine nitrite detection by test strip NEGATIVE NEGATIVE Urine total bilirubin detection by test strip NEGATIVE NEGATIVE Urine urobilinogen measurement by automated test strip (mass/volume) NORMAL NORMAL Urine leukocyte esterase detection by dipstick NEGATIVE NEGATIVE Automated urine sediment erythrocyte count by microscopy (number/high power field) NONE NRG Automated urine sediment leukocyte count by microscopy (number/high power field ) NONE NRG Bacteria detection in urine sediment by light microscopy TRACE NRG Squamous epithelial cells detection in urine sediment by light microscopy 5-10 NRG Crystals detection in urine sediment by light microscopy NONE NRG Casts detection in urine sediment by light microscopy NONE NRG Mucus detection in urine sediment by light microscopy NEGATIVE NRG Complete urinalysis with reflex to culture NO NRG Urine drug screening test - 05/20/17 02:25 Urine phencyclidine detection by screening method NEGATIVE NEGATIVE Urine benzodiazepines detection by screening method NEGATIVE NEGATIVE Urine cocaine detection NEGATIVE NEGATIVE Urine amphetamines detection by screening method NEGATIVE NEGATIVE Urine methamphetamine detection by screening method NEGATIVE NEGATIVE Urine cannabinoids detection by screening method NEGATIVE NEGATIVE Urine opiates detection by screening method NEGATIVE NEGATIVE Urine barbiturates detection NEGATIVE NEGATIVE Screening urine tricyclic antidepressants detection NEGATIVE NEGATIVE Urine methadone detection by screening method NEGATIVE NEGATIVE Urine oxycodone detection NEGATIVE NEGATIVE Urine propoxyphene detection NEGATIVE NEGATIVE Complete blood count (CBC) with automated white blood cell (WBC) differential - 05/20/17 03:30 Blood leukocytes automated count (number/volume) 8.0 10*3/uL 4.3-11.0 Blood erythrocytes automated count (number/volume) 4.72 10*6/uL 4.35-5.85 Venous blood hemoglobin measurement (mass/volume) 13.1 g/dL 11.5-16.0 Blood hematocrit (volume fraction) 39 % 35-52 Automated erythrocyte mean corpuscular volume 84 [foz_us] 80-99 Automated erythrocyte mean corpuscular hemoglobin (mass per erythrocyte) 28 pg 25-34 Automated erythrocyte mean corpuscular hemoglobin concentration measurement ( mass/volume) 33 g/dL 32-36 Automated erythrocyte distribution width ratio 15.8 % 10.0-14.5 Automated blood platelet count (count/volume) 244 10*3/uL 130-400 Automated blood platelet mean volume measurement 10.5 [foz_us] 7.4-10.4 Automated blood neutrophils/100 leukocytes 51 % 42-75 Automated blood lymphocytes/100 leukocytes 33 % 12-44 Blood monocytes/100 leukocytes 13 % 0-12 Automated blood eosinophils/100 leukocytes 3 % 0-10 Automated blood basophils/100 leukocytes 0 % 0-10 Blood neutrophils automated count (number/volume) 4.1 10*3 1.8-7.8 Blood lymphocytes automated count (number/volume) 2.6 10*3 1.0-4.0 Blood monocytes automated count (number/volume) 1.1 10*3 0.0-1.0 Automated eosinophil count 0.2 10*3/uL 0.0-0.3 Automated blood basophil count (count/volume) 0.0 10*3/uL 0.0-0.1 Serum or plasma choriogonadotropin ( test) detection - 05/20/17 03:30 Serum or plasma choriogonadotropin ( test) detection NEGATIVE NEGATIVE Comprehensive metabolic panel - 05/20/17 03:30 Serum or plasma sodium measurement (moles/volume) 139 mmol/L 135-145 Serum or plasma potassium measurement (moles/volume) 3.9 mmol/L 3.6-5.0 Serum or plasma chloride measurement (moles/volume) 106 mmol/L 98-107 Carbon dioxide 21 mmol/L 21-32 Serum or plasma anion gap determination (moles/volume) 12 mmol/L 5-14 Serum or plasma urea nitrogen measurement (mass/volume) 13 mg/dL 7-18 Serum or plasma creatinine measurement (mass/volume) 0.68 mg/dL 0.60-1.30 Serum or plasma urea nitrogen/creatinine mass ratio 19 NRG Serum or plasma creatinine measurement with calculation of estimated glomerular filtration rate > NRG Serum or plasma glucose measurement (mass/volume) 79 mg/dL 70-105 Serum or plasma calcium measurement (mass/volume) 9.3 mg/dL 8.5-10.1 Serum or plasma total bilirubin measurement (mass/volume) 0.4 mg/dL 0.1-1.0 Serum or plasma alkaline phosphatase measurement (enzymatic activity/volume) 79 U/L 40-136 Serum or plasma aspartate aminotransferase measurement (enzymatic activity/ volume) 41 U/L 5-34 Serum or plasma alanine aminotransferase measurement (enzymatic activity/volume ) 45 U/L 0-55 Serum or plasma protein measurement (mass/volume) 6.5 g/dL 6.4-8.2 Serum or plasma albumin measurement (mass/volume) 4.0 g/dL 3.2-4.5 Serum or plasma thyrotropin measurement by detection limit <=0.05 miu/l (units/ volume) - 05/20/17 03:30 Serum or plasma thyrotropin measurement by detection limit <=0.05 miu/l (units/ volume) 2.10 u[iU]/mL 0.35-4.94 Serum or plasma salicylates measurement (mass/volume) - 05/20/17 03:30 Serum or plasma salicylates measurement (mass/volume) < mg/dL 5.0-20.0 Serum or plasma acetaminophen measurement (mass/volume) - 05/20/17 03:30 Serum or plasma acetaminophen measurement (mass/volume) < ug/mL 10-30 [id number] - 05/20/17 03:30 [id number] 75.4 ug/mL 50.0-100.0 Serum or plasma ethanol measurement (mass/volume) - 05/20/17 03:30 Serum or plasma ethanol measurement (mass/volume) < mg/dL <10 Encounters ACCT No. Visit Date/Time Discharge Status Pt. Type Provider Facility Loc./Unit Complaint [id number] 07/14/2017 23:06:00 07/14/2017 23:56:00 DIS Emergency DAVID DUNBAR DO [facility] ER MEDICATION COMPLICATIONS [id number] 07/11/2017 18:56:00 07/11/2017 19:31:00 DIS Emergency DANI MARTIN APRN [facility] ER SCHIZOPHRENIA [id number] 05/20/2017 02:02:00 05/20/2017 07:13:00 DIS Emergency DAVID DUNBAR DO [facility] ER SUICIDAL, WANTS MEDS FIXED [id number] 01/29/2017 03:35:00 01/29/2017 17:25:00 DIS Inpatient INO SCRUGGS MD [facility] 4TH SUICIDAL IDEATIONS [id number] 01/06/2017 20:52:00 01/06/2017 23:42:00 DIS Emergency SHIRA SINGH [facility] ER SUICIDAL THOUGHTS [id number] 12/28/2016 02:10:00 12/28/2016 15:50:00 DIS Inpatient DINA DO GUILLERMINA E [facility] ICU INTENTIONAL DRUG OVERDOSE OF LITHIUM;SUICIDE [id number] 12/22/2016 21:26:00 12/23/2016 16:09:00 DIS Emergency NUNU LUJAN MD [facility] ER PSYCH EVAL [id number] 10/17/2016 04:15:00 10/17/2016 06:00:00 DIS Emergency DAVID DUNBAR DO [facility] ER HEADACHE,BLURRY VISION [id number] 07/19/2016 12:13:00 07/19/2016 16:10:00 DIS Emergency DANI MARTIN APRN [facility] ER SUICIDAL [id number] 04/14/2016 20:24:00 04/14/2016 22:13:00 DIS Emergency DANI MARTIN APRN [facility] ER TREMORS, DRY HEAVING, CONFUSION, DROOLING [id number] 07/27/2015 20:40:00 07/27/2015 22:49:00 DIS Emergency DANI MARTIN APRN [facility] ER PSYCH EVAL [id number] 06/29/2014 20:37:00 06/29/2014 22:45:00 DIS Emergency SHIRA SINGH [facility] ER SUICIDAL IDEATION [id number] 12/17/2014 02:26:00 Document Registration [id number] 12/06/2015 18:06:00 Document Registration [id number] 06/08/2016 08:35:00 Document Registration [id number] 06/30/2014 06:12:35 ACT Document Registration [id number] 12/07/2015 10:05:00 Document Registration [id number] 04/23/2017 13:30:00 04/23/2017 23:59:59 [facility] Outpatient VARSHA CASTRO [facility] [id number] 01/17/2017 19:35:00 Document Registration
--- NOTE | 2017-09-20 04:37 | ED Psychosocial ---
General Chief Complaint: Psych/Social Disorder Stated Complaint: SUICIDAL Source: patient, old records (DAVID DUNBAR DO) History of Present Illness Date Seen by Provider: Sep 20, 2017 Time Seen by Provider: 04:15 Initial Comments PT ARRIVES VIA POV FROM HOME PT STATES "I'M SUICIDAL AND I NEED HELP FOR IT" --WANTS TO BE ADMITTED TO PSYCH FACILITY THIS IS A CHRONIC PROBLEM, WORSE X 4 DAYS NO ATTEMPT, AND ON ARRIVAL STATES SHE DOES NOT HAVE A PLAN, BUT LATER DURING ER STAY SHE NOW STATES THAT SHE HAS A PLAN AND HAS THOUGHT ABOUT CHOKING HERSELF WITH A BELT, OR CUTTING HERSELF. PT STATES SHE HAS "HAD MASSIVE UP AND DOWN'S" "BREAK UPS" "FAMILIES " "ALOT OF EVENTS" PT STATES "I HAVE OVERWHELMING EMOTION OVER THESE EVENTS, THEN I DON'T CARE AT ALL AND THEN I JUST WANT TO " PT STATES SHE TAKES DEPAKOTE, PROZAC, SYNTHROID, INVEGA STATES SHE MISSED 3 DAYS OF MEDICATIONS IN THE LAST WEEK--FRIDAY, FRIDAY AND FRIDAY PT STATES "MY PHONE WAS OUT OF SERVICE AND I HAVE A MED DROP AND I'M NOT RESPONSIBLE ENOUGH TO GET MY MEDICATIONS"--STATES SHE IS SUPPOSED TO CALL THEM AND BE PRESENT WHEN THEY DROP OFF MEDICATIONS AND SHE DID NEITHER, THEREFORE, SHE DID NOT GET HER MEDICATIONS PT STATES "EVEN WITH THE MEDICINES I WAS DEPRESSED, BUT MISSING THE MEDICINES MADE IT WORSE" PT LATER STATES SHE HAS HISTORY OF ABUSING LORAZEPAM AND SHE "RAN OUT ON FRIDAY" AND DOES NOT HAVE REFILLS. SHE DID NOT LIST THIS A MEDICATION-- STATES NOW SHE JUST TAKES IT " NEEDED" YET ALSO STATES SHE ABUSES IT PT STATES SHE "JUST GOT OUT OF [facility] IN [place] EARLIER THIS MONTH" BUT CANNOT RECALL DATES, STATES SHE WAS THERE FOR 3 OR 4 DAYS FOR THIS SAME PROBLEM. STATES THEY DID NOT CHANGE ANY OF HER MEDICATIONS PT STATES SHE HAS NOT SEEN Toshia BAJWA WITH [facility] IN 6 WEEKS, AND HAS NOT SEEN YESICA FROM THERE EITHER--WAS SUPPOSED TO SEE BOTH OF THEM AFTER SHE WAS DISMISSED FROM [facility], BUT HAS NOT ATTEMPTED TO MAKE AN APPOINTMENT WITH EITHER ONE OF THEM. PT WITH 14 VISITS HERE SINCE 2014--NEARLY ALL FOR PSYCH COMPLAINTS--SUICIDAL IDEATIONS/ATTEMPTS/OVERDOSES AND/OR ANXIETY RELATED COMPLAINTS. (DAVID DUNBAR DO) Allergies and Home Medications Allergies Coded Allergies: haloperidol (Verified Allergy, Mild, 12/16/14) Home Medications Divalproex Sodium 500 Mg Tab.er.24h, 1,000 MG PO HS, (Reported) TAKES 2 (500MG) TABLETS Fluoxetine HCl 20 Mg Capsule, 20 MG PO HS, (Reported) Levothyroxine Sodium 25 Mcg Tablet, 25 MCG PO DAILY, (Reported) Lorazepam 0.5 Mg Tablet, 0.5 MG PO BID PRN for ANXIETY Prescribed by: DANI MARTIN on 07/11/171923 Patient Home Medication List Home Medication List Reviewed: Yes (DAVID DUNBAR DO) Constitutional: no symptoms reported EENTM: no symptoms reported Respiratory: no symptoms reported Cardiovascular: no symptoms reported Gastrointestinal: no symptoms reported Genitourinary: no symptoms reported : No (LMP--HAS NO IDEA--STATES IT HAS BEEN MONTHS SINCE LAST PERIOD, IS ON DEPO-PROVERA, NEXT SHOT IS DUE SOMETIME IN OCTOBER) Control/STD Prophylaxis: Depo Provera Musculoskeletal: no symptoms reported Skin: no symptoms reported Psychiatric/Neurological: See HPI (DAVID DUNBAR DO) Past Swnnmln-Vkztug-Srropg Hx Patient Social History Alcohol Use: Denies Use Recreational Drug Use: Yes (LORAZEPAM ABUSE) Smoking Status: Never a Smoker 2nd Hand Smoke Exposure: No Recent Foreign Travel: No Contact w/Someone Who Travel: No Recent Hopitalizations: No (DAVID DUNBAR DO) Immunizations Up To Date Tetanus Booster (TDap): Unknown (DAVID DUNBAR DO) Seasonal Allergies Seasonal Allergies: No (DAVID DUNBAR DO) Past Medical History Surgeries: No Respiratory: No Cardiac: No Neurological: Yes Headaches /Migraines Reproductive Disorders: No Female Reproductive Disorders: Denies Genitourinary: No Gastrointestinal: No Musculoskeletal: No Endocrine: Yes Hypothyroidsim HEENT: No Cancer: No Psychosocial: Yes (SUICIDAL IDEATIONS) Anxiety, Suicide Attempts, Bipolar, Schizophrenia, Depression Integumentary: No Blood Disorders: No (DAVID DUNBAR DO) Family Medical History Asthma 19 MOTHER No Pertinent Family Hx (DAVID DUNBAR DO) Physical Exam Vital Signs - First Documented 09/20/17 04:14 Temp 98.0 Pulse 96 Resp 18 B/P (MAP) 167/78 (107) Pulse Ox 97 O2 Delivery Room Air (EFRA MOSER MD) Capillary Refill : (DAVID DUNBAR DO) Height, Weight, BMI Height: 5'3.00" Weight: 226lbs. 4.0oz. 102.843800kg; 40.1 BMI Method:Stated General Appearance: no apparent distress, obese, other (SMILING, TALKATIVE. TALKS [id number], AND ANSWERS SEEM SOMEWHAT PRE-MEDITATED/REHEARSED. DOES NOT APPEAR TO BE IN ANY DISCOMFORT OR DISTRESS) HEENT: PERRL/EOMI, normal ENT inspection Neck: normal inspection Respiratory: normal breath sounds, no respiratory distress, no accessory muscle use Cardiovascular: regular rate, rhythm, no edema, no JVD, no murmur Gastrointestinal: normal bowel sounds, non tender, soft Extremities: normal inspection, no pedal edema, no calf tenderness, normal capillary refill Neurologic/Psychiatric: manager compliance II-XII nml as tested, no motor/sensory deficits, alert, normal mood/affect, oriented x 3 Appearance/Memory: appropriate appearance, appropriate insight, no memory impairment (GROSS MEMORY IS INTACT. ) Behavior/Eye Contact: cooperative, good eye contact, normal speech Thoughts/Hallucinations: no apparent hallucination, other (SUICIDAL IDEATIONS) Skin: normal color, warm/dry, other (NO EXTERNAL EVIDENCE OF TRAUMA) (DAVID DUNBAR DO) Progress/Results/Core Measures Results/Orders Lab Results Laboratory Tests Test 09/20/17 04:35 09/20/17 05:33 Range/Units White Blood Count 7.2 4.3-11.0 10^3/uL Red Blood Count 4.81 4.35-5.85 10^6/uL Hemoglobin 12.7 11.5-16.0 G/DL Hematocrit 38 35-52 % Mean Corpuscular Volume 78 L 80-99 FL Mean Corpuscular Hemoglobin 26 25-34 PG Mean Corpuscular Hemoglobin Concent 34 32-36 G/DL Red Cell Distribution Width 15.0 H 10.0-14.5 % Platelet Count 296 130-400 10^3/uL Mean Platelet Volume 9.9 7.4-10.4 FL Neutrophils (%) (Auto) 55 42-75 % Lymphocytes (%) (Auto) 32 12-44 % Monocytes (%) (Auto) 9 0-12 % Eosinophils (%) (Auto) 3 0-10 % Basophils (%) (Auto) 0 0-10 % Neutrophils # (Auto) 4.0 1.8-7.8 X 10^3 Lymphocytes # (Auto) 2.3 1.0-4.0 X 10^3 Monocytes # (Auto) 0.7 0.0-1.0 X 10^3 Eosinophils # (Auto) 0.2 0.0-0.3 10^3/uL Basophils # (Auto) 0.0 0.0-0.1 10^3/uL Sodium Level 139 135-145 MMOL/L Potassium Level 3.5 L 3.6-5.0 MMOL/L Chloride Level 109 H 98-107 MMOL/L Carbon Dioxide Level 20 L 21-32 MMOL/L Anion Gap 10 5-14 MMOL/L Blood Urea Nitrogen 11 7-18 MG/DL Creatinine 0.69 0.60-1.30 MG/DL Estimat Glomerular Filtration Rate > 60 BUN/Creatinine Ratio 16 Glucose Level 93 70-105 MG/DL Calcium Level 9.3 8.5-10.1 MG/DL Total Bilirubin 0.5 0.1-1.0 MG/DL Aspartate Amino Transf (AST/SGOT) 86 H 5-34 U/L Alanine Aminotransferase (ALT/SGPT) 78 H 0-55 U/L Alkaline Phosphatase 96 40-136 U/L Total Protein 6.6 6.4-8.2 GM/DL Albumin 4.0 3.2-4.5 GM/DL TSH [place] Testing 3.66 0.35-4.94 UIU/ML Salicylates Level < 5.0 L 5.0-20.0 MG/DL Acetaminophen Level < 10 L 10-30 UG/ML Valproic Acid (Depakene) Level 39.2 L 50.0-100.0 UG/ML Serum Alcohol < 10 <10 MG/DL Urine Color YELLOW Urine Clarity CLEAR Urine pH 6.5 5-9 Urine Specific [place] 1.020 1.016-1.022 Urine Protein NEGATIVE NEGATIVE Urine Glucose (UA) NEGATIVE NEGATIVE Urine Ketones NEGATIVE NEGATIVE Urine Nitrite NEGATIVE NEGATIVE Urine Bilirubin NEGATIVE NEGATIVE Urine Urobilinogen NORMAL NORMAL MG/DL Urine Leukocyte Esterase NEGATIVE NEGATIVE Urine RBC (Auto) 1+ H NEGATIVE Urine RBC 0-2 /HPF Urine WBC NONE /HPF Urine Squamous Epithelial Cells 2-5 /HPF Urine Crystals NONE /LPF Urine Bacteria NEGATIVE /HPF Urine Casts NONE /LPF Urine Mucus NEGATIVE /LPF Urine Culture Indicated NO Urine Test NEGATIVE NEGATIVE Urine Opiates Screen NEGATIVE NEGATIVE Urine Oxycodone Screen NEGATIVE NEGATIVE Urine Methadone Screen NEGATIVE NEGATIVE Urine Propoxyphene Screen NEGATIVE NEGATIVE Urine Barbiturates Screen NEGATIVE NEGATIVE Ur Tricyclic Antidepressants Screen NEGATIVE NEGATIVE Urine Phencyclidine Screen NEGATIVE NEGATIVE Urine Amphetamines Screen NEGATIVE NEGATIVE Urine Methamphetamines Screen NEGATIVE NEGATIVE Urine Benzodiazepines Screen POSITIVE H NEGATIVE Urine Cocaine Screen NEGATIVE NEGATIVE Urine Cannabinoids Screen NEGATIVE NEGATIVE (EFRA MOSER MD) Medications Given in ED Current Medications Medications Dose Ordered Sig/Tierney Route Start Time Stop Time Status Last Admin Dose Admin Potassium Chloride 20 meq ONCE ONCE PO 09/20/17 05:15 09/20/17 06:21 DC 09/20/17 05:35 20 MEQ (EFRA MOSER MD) Vital Signs/I&O 09/20/17 04:14 Temp 98.0 Pulse 96 Resp 18 B/P (MAP) 167/78 (107) Pulse Ox 97 O2 Delivery Room Air (EFRA MOSER MD) Progress Progress Note : Progress Note PT HAS STATED THAT SHE WANTS TO BE ADMITTED TO PSYCH FACILITY, THAT SAFETY PLANS ARE WORTHLESS AND SHE WON'T FOLLOW IT. 0600--CARE TURNED OVER TO DR. MOSER, MENTAL HEALTH SCREEN PENDING (DAVID DUNBAR DO) Initial ECG Impression Date: Sep 20, 2017 Initial ECG Impression Time: 04:23 Initial ECG Rate: 73 Initial ECG Rhythm: Normal Sinus Initial ECG Impression: Normal (DAVID DUNBAR DO) Departure Communication (Admissions) 0515--CALLED [facility] 0540--[facility] SCREENER CALLED BACK AND SPOKE WITH RN. WILL BE OUT TO SEE PT (DAVID DUNBAR DO) 0763 mental health completed screening. We are told they are quite familiar with the patient. They have arranged for crisis calls and outpatient follow-up and believe her to be safe to be discharged. (EFRA MOSER MD) Impression Primary Impression: Suicidal ideation Disposition: 01 HOME, SELF-CARE Condition: Improved Departure-Patient Inst. Decision time for Depature: 07:43 (EFRA MOSER MD) Referrals: [facility] (PCP) Primary Care Physician Add. Discharge Instructions: All discharge instructions reviewed with patient and/or family. Voiced understanding. Resume your previously prescribed medications. Follow instructions given to you by your mental health providers DAVID DUNBAR DO Sep 20, 2017 04:37 EFRA MOSER MD Sep 20, 2017 07:44
[2017-09-20 04:42] LABS: BASOPHILS % (AUTO) 0 % (0-10); EOSINOPHILS # (AUTO) 0.2 10^3/uL (0.0-0.3); EOSINOPHILS % (AUTO) 3 % (0-10); HEMATOCRIT 38 % (35-52); HEMOGLOBIN 12.7 G/DL (11.5-16.0); LYMPHOCYTES # (AUTO) 2.3 X 10^3 (1.0-4.0); LYMPHOCYTES % (AUTO) 32 % (12-44); MEAN CORPUSCULAR HEMOGLOBIN 26 PG (25-34); MEAN CORPUSCULAR HGB CONC 34 G/DL (32-36); MEAN CORPUSCULAR VOLUME 78 FL (80-99); MEAN PLATELET VOLUME 9.9 FL (7.4-10.4); MONOCYTES # (AUTO) 0.7 X 10^3 (0.0-1.0); MONOCYTES % (AUTO) 9 % (0-12); NEUTROPHILS % (AUTO) 55 % (42-75); PLATELET COUNT 296 10^3/uL (130-400); RED BLOOD COUNT 4.81 10^6/uL (4.35-5.85); WHITE BLOOD COUNT 7.2 10^3/uL (4.3-11.0)
[2017-09-20 05:00] LABS: ALANINE AMINOTRANSFERASE 78 U/L (0-55); ALKALINE PHOSPHATASE 96 U/L (40-136); BILIRUBIN,TOTAL 0.5 MG/DL (0.1-1.0); BUN/CREATININE RATIO 16; CALCIUM 9.3 MG/DL (8.5-10.1); CARBON DIOXIDE 20 MMOL/L (21-32); CHLORIDE 109 MMOL/L (98-107); CREATININE SERUM 0.69 MG/DL (0.60-1.30); GFR ESTIMATED > 60; GLUCOSE 93 MG/DL (70-105); POTASSIUM 3.5 MMOL/L (3.6-5.0); SALICYLATE < 5.0 MG/DL (5.0-20.0); SODIUM 139 MMOL/L (135-145); TOTAL PROTEIN 6.6 GM/DL (6.4-8.2)
[2017-09-20 05:02] LABS: ACETAMINOPHEN < 10 UG/ML (10-30)
[2017-09-20] MEDS ORDERED: KCL 10 MEQ TAB (MICRO K) PO ONE ×2 (05:15→05:18)
[2017-09-20 05:20] LABS: TSH (THYROID ANALYZER) 3.66 UIU/ML (0.35-4.94); VALPROIC ACID 39.2 UG/ML (50.0-100.0)
[2017-09-20 05:42] LABS: BILIRUBIN,URINE NEGATIVE (NEGATIVE); CLARITY,URINE CLEAR; COLOR,URINE YELLOW; GLUCOSE, URINE (UA) NEGATIVE (NEGATIVE); KETONES,URINE NEGATIVE (NEGATIVE); LEUKOCYTE ESTERASE ,URINE NEGATIVE (NEGATIVE); NITRITE,URINE NEGATIVE (NEGATIVE); PH,URINE 6.5 (5-9); PROTEIN,URINE NEGATIVE (NEGATIVE); UROBILINOGEN,URINE NORMAL (NORMAL)
[2017-09-20 05:50] LABS: BACTERIA,URINE NEGATIVE /HPF; RBC,URINE 0-2 /HPF
[2017-09-20 05:53] LABS: AMPHETAMINE SCREEN, URINE NEGATIVE (NEGATIVE); BARBITURATE SCREEN URINE NEGATIVE (NEGATIVE); BENZODIAZEPINES SCREEN URINE POSITIVE (NEGATIVE); CANNABINOID SCREEN, URINE NEGATIVE (NEGATIVE); COCAINE SCREEN URINE NEGATIVE (NEGATIVE); METHADONE STAT NEGATIVE (NEGATIVE); METHAMPHETAMINE SCREEN URINE S NEGATIVE (NEGATIVE); OPIATE SCREEN URINE NEGATIVE (NEGATIVE); OXYCODONE STAT NEGATIVE (NEGATIVE); PROPOXYPHENE STAT NEGATIVE (NEGATIVE); TRICYCLIC ANTIDEPRESSANTS SCRE NEGATIVE (NEGATIVE)
[2017-09-20 07:52] VITALS: BP 167/78
[2017-09-22 15:49] LABS: HEPATITIS C ANTIBODY C Non-Reactive (Non-Reactive)
== END 2017-09-20 07:53 | disposition home or self-care (01) ==
LOC: EDUNIT# 03:58 → ER 04:03
DX: R45.851 Suicidal ideations (principal); G43.909 Migraine, unspecified, not intractable, without status migrainosus; E03.9 Hypothyroidism, unspecified; F41.9 Anxiety disorder, unspecified; F31.9 Bipolar disorder, unspecified; F20.9 Schizophrenia, unspecified; Z91.14 Patient's other noncompliance with medication regimen; Z88.8 Allergy status to other drugs, medicaments and biological substances
CPT/HCPCS: 36415; 80053; 80074; 80164; 80306; 80320; 80329; 81000; 84443; 84703; 85025; 93005

== ENCOUNTER 2018-01-11 20:50 | Emergency (ER) | payer SELFPAY ==
[~2018-01-11] VITALS: Ht 160 cm; Wt 113.4 kg
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
[2018-01-11 22:07] LABS: BILIRUBIN,URINE NEGATIVE (NEGATIVE); CLARITY,URINE CLEAR; COLOR,URINE YELLOW; GLUCOSE, URINE (UA) NEGATIVE (NEGATIVE); KETONES,URINE 1+ (NEGATIVE); LEUKOCYTE ESTERASE ,URINE NEGATIVE (NEGATIVE); NITRITE,URINE NEGATIVE (NEGATIVE); PH,URINE 7 (5-9); PROTEIN,URINE NEGATIVE (NEGATIVE); UROBILINOGEN,URINE NORMAL (NORMAL)
[2018-01-11 22:19] LABS: BACTERIA,URINE FEW /HPF; RBC,URINE 0-2 /HPF; WBC,URINE 0-2 /HPF
[2018-01-11 22:27] LABS: AMPHETAMINE SCREEN, URINE NEGATIVE (NEGATIVE); BARBITURATE SCREEN URINE NEGATIVE (NEGATIVE); BENZODIAZEPINES SCREEN URINE NEGATIVE (NEGATIVE); CANNABINOID SCREEN, URINE NEGATIVE (NEGATIVE); COCAINE SCREEN URINE NEGATIVE (NEGATIVE); METHADONE STAT NEGATIVE (NEGATIVE); METHAMPHETAMINE SCREEN URINE S NEGATIVE (NEGATIVE); OPIATE SCREEN URINE NEGATIVE (NEGATIVE); OXYCODONE STAT NEGATIVE (NEGATIVE); PROPOXYPHENE STAT NEGATIVE (NEGATIVE); TRICYCLIC ANTIDEPRESSANTS SCRE NEGATIVE (NEGATIVE)
[2018-01-11 22:33] LABS: BASOPHILS % (AUTO) 0 % (0-10); EOSINOPHILS # (AUTO) 0.2 10^3/uL (0.0-0.3); EOSINOPHILS % (AUTO) 3 % (0-10); HEMATOCRIT 36 % (35-52); HEMOGLOBIN 11.5 G/DL (11.5-16.0); LYMPHOCYTES # (AUTO) 2.3 X 10^3 (1.0-4.0); LYMPHOCYTES % (AUTO) 29 % (12-44); MEAN CORPUSCULAR HEMOGLOBIN 26 PG (25-34); MEAN CORPUSCULAR HGB CONC 32 G/DL (32-36); MEAN CORPUSCULAR VOLUME 79 FL (80-99); MEAN PLATELET VOLUME 9.9 FL (7.4-10.4); MONOCYTES # (AUTO) 0.8 X 10^3 (0.0-1.0); MONOCYTES % (AUTO) 10 % (0-12); NEUTROPHILS # (AUTO) 4.5 X 10^3 (1.8-7.8); NEUTROPHILS % (AUTO) 58 % (42-75); PLATELET COUNT 250 10^3/uL (130-400); RED BLOOD COUNT 4.51 10^6/uL (4.35-5.85); RED CELL DISTRIBUTION WIDTH 15.1 % (10.0-14.5); WHITE BLOOD COUNT 7.8 10^3/uL (4.3-11.0)
[2018-01-11 23:00] LABS: ALANINE AMINOTRANSFERASE 48 U/L (0-55); ALBUMIN 3.9 GM/DL (3.2-4.5); BILIRUBIN,TOTAL 0.3 MG/DL (0.1-1.0); BUN/CREATININE RATIO 14; CARBON DIOXIDE 20 MMOL/L (21-32); CHLORIDE 106 MMOL/L (98-107); CREATININE SERUM 0.64 MG/DL (0.60-1.30); GFR ESTIMATED > 60; GLUCOSE 115 MG/DL (70-105); POTASSIUM 3.9 MMOL/L (3.6-5.0); SALICYLATE < 5.0 MG/DL (5.0-20.0); SODIUM 139 MMOL/L (135-145); TOTAL PROTEIN 6.5 GM/DL (6.4-8.2)
[2018-01-11 23:15] LABS: ALKALINE PHOSPHATASE 104 U/L (40-136)
[2018-01-11 23:16] LABS: ACETAMINOPHEN < 10 UG/ML (10-30)
[2018-01-11 23:20] LABS: TSH (THYROID ANALYZER) 1.98 UIU/ML (0.35-4.94); VALPROIC ACID 79.9 UG/ML (50.0-100.0)
[2018-01-12 00:57] VITALS: BP 140/67
== END 2018-01-12 00:57 ==
LOC: EDUNIT# 20:50 → ER 20:51
DX: R45.851 Suicidal ideations (principal); G43.909 Migraine, unspecified, not intractable, without status migrainosus; F32.9 Major depressive disorder, single episode, unspecified; F12.10 Cannabis abuse, uncomplicated; F17.210 Nicotine dependence, cigarettes, uncomplicated; E66.9 Obesity, unspecified; E03.9 Hypothyroidism, unspecified; F41.9 Anxiety disorder, unspecified; F31.9 Bipolar disorder, unspecified; F20.9 Schizophrenia, unspecified; Z91.14 Patient's other noncompliance with medication regimen; Z87.440 Personal history of urinary (tract) infections; Z88.8 Allergy status to other drugs, medicaments and biological substances; Z91.5 Personal history of self-harm; Z68.41 Body mass index [BMI] 40.0-44.9, adult
CPT/HCPCS: 36415; 80053; 80164; 80306; 80320; 80329; 81000; 84443; 84703; 85025; 93005

== ENCOUNTER 2018-01-23 15:21 | Emergency (ER) | payer SELFPAY ==
[~2018-01-23] VITALS: Ht 160 cm; Wt 113.5 kg
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
[2018-01-23] MEDS ORDERED: ALPRAZolam 0.5 MG (XANAX) TAB PO SCH (15:45)
[2018-01-23 16:36] LABS: BASOPHILS % (AUTO) 0 % (0-10); EOSINOPHILS # (AUTO) 0.1 10^3/uL (0.0-0.3); EOSINOPHILS % (AUTO) 2 % (0-10); HEMATOCRIT 39 % (35-52); HEMOGLOBIN 12.4 G/DL (11.5-16.0); LYMPHOCYTES # (AUTO) 1.9 X 10^3 (1.0-4.0); LYMPHOCYTES % (AUTO) 28 % (12-44); MEAN CORPUSCULAR HEMOGLOBIN 25 PG (25-34); MEAN CORPUSCULAR HGB CONC 32 G/DL (32-36); MEAN CORPUSCULAR VOLUME 79 FL (80-99); MEAN PLATELET VOLUME 10.1 FL (7.4-10.4); MONOCYTES # (AUTO) 0.7 X 10^3 (0.0-1.0); MONOCYTES % (AUTO) 9 % (0-12); NEUTROPHILS # (AUTO) 4.2 X 10^3 (1.8-7.8); NEUTROPHILS % (AUTO) 61 % (42-75); PLATELET COUNT 307 10^3/uL (130-400); RED BLOOD COUNT 4.97 10^6/uL (4.35-5.85); RED CELL DISTRIBUTION WIDTH 15.5 % (10.0-14.5); WHITE BLOOD COUNT 6.9 10^3/uL (4.3-11.0)
[2018-01-23 16:45] LABS: BILIRUBIN,URINE NEGATIVE (NEGATIVE); CLARITY,URINE CLEAR; COLOR,URINE YELLOW; GLUCOSE, URINE (UA) NEGATIVE (NEGATIVE); KETONES,URINE NEGATIVE (NEGATIVE); LEUKOCYTE ESTERASE ,URINE NEGATIVE (NEGATIVE); NITRITE,URINE NEGATIVE (NEGATIVE); PH,URINE 7 (5-9); PROTEIN,URINE NEGATIVE (NEGATIVE); UROBILINOGEN,URINE NORMAL (NORMAL)
[2018-01-23 16:52] LABS: BACTERIA,URINE NEGATIVE /HPF; RBC,URINE 0-2 /HPF
[2018-01-23 16:55] LABS: ALANINE AMINOTRANSFERASE 61 U/L (0-55); ALBUMIN 4.1 GM/DL (3.2-4.5); ALKALINE PHOSPHATASE 122 U/L (40-136); BILIRUBIN,TOTAL 0.4 MG/DL (0.1-1.0); BUN/CREATININE RATIO 13; CALCIUM 9.1 MG/DL (8.5-10.1); CARBON DIOXIDE 22 MMOL/L (21-32); CHLORIDE 104 MMOL/L (98-107); CREATININE SERUM 0.72 MG/DL (0.60-1.30); GFR ESTIMATED > 60; GLUCOSE 108 MG/DL (70-105); POTASSIUM 3.8 MMOL/L (3.6-5.0); SALICYLATE < 5.0 MG/DL (5.0-20.0); SODIUM 137 MMOL/L (135-145); TOTAL PROTEIN 6.8 GM/DL (6.4-8.2)
[2018-01-23 16:58] LABS: AMPHETAMINE SCREEN, URINE NEGATIVE (NEGATIVE); BARBITURATE SCREEN URINE NEGATIVE (NEGATIVE); BENZODIAZEPINES SCREEN URINE NEGATIVE (NEGATIVE); CANNABINOID SCREEN, URINE NEGATIVE (NEGATIVE); COCAINE SCREEN URINE NEGATIVE (NEGATIVE); METHADONE STAT NEGATIVE (NEGATIVE); METHAMPHETAMINE SCREEN URINE S NEGATIVE (NEGATIVE); OPIATE SCREEN URINE NEGATIVE (NEGATIVE); OXYCODONE STAT NEGATIVE (NEGATIVE); PROPOXYPHENE STAT NEGATIVE (NEGATIVE); TRICYCLIC ANTIDEPRESSANTS SCRE NEGATIVE (NEGATIVE)
[2018-01-23 17:08] LABS: ACETAMINOPHEN < 10 UG/ML (10-30)
[2018-01-23] MEDS ORDERED: ALPR0.5T PO (17:17)
[2018-01-23 17:19] VITALS: BP 126/71
== END 2018-01-23 17:22 | disposition home or self-care (01) ==
LOC: EDUNIT# 15:21 → ER 15:22
DX: R45.851 Suicidal ideations (principal); F43.9 Reaction to severe stress, unspecified; F31.9 Bipolar disorder, unspecified; F41.9 Anxiety disorder, unspecified; G43.909 Migraine, unspecified, not intractable, without status migrainosus; E66.9 Obesity, unspecified; E03.9 Hypothyroidism, unspecified; F20.9 Schizophrenia, unspecified; F12.10 Cannabis abuse, uncomplicated; Z87.440 Personal history of urinary (tract) infections; Z68.41 Body mass index [BMI] 40.0-44.9, adult; Z88.8 Allergy status to other drugs, medicaments and biological substances; Z91.5 Personal history of self-harm
CPT/HCPCS: 36415; 80053; 80306; 80320; 80329; 81000; 84439; 84443; 84703; 85025; 99285

== ENCOUNTER 2018-03-22 07:26 | Emergency (ER) | payer SELFPAY, OTHER | END 2018-03-22 10:40 | disposition home or self-care (01) | LOC: ER 07:26 ==

== ENCOUNTER 2018-03-22 17:19 | Observation (INO) | payer OTHER, SELFPAY | END 2018-03-23 12:25 | disposition psychiatric hospital, planned readmission (93) | LOC: ER 17:19 → ICU 03-23 02:13 ==

== ENCOUNTER 2018-04-15 17:28 | Emergency (ER) | payer SELFPAY ==
[~2018-04-15] VITALS: Ht 160 cm; Wt 122.5 kg
[~2018-04-15 17:28] MED LIST changes: +ALPR0.5T PO
--- OUTSIDE RECORDS SUMMARY | 2018-04-15 17:40 | XMS REPORT | Clinical Summary ---
Author Author [facility] Organization [facility] Address Unknown Phone Unavailable Care Team Providers Care Textile Machine Mechanic Name Role Phone Unassigned, None PP Unavailable Allergies Comments Active Allergy Reactions Severity Noted Date States it makes her "freak out" Haloperidol Anxiety, 10/09/2014 Other (See Comments) Medications End Date Status Medication Sig Dispensed Refills Start Date Active FLUoxetine (PROZAC) 40 MG Take 40 mg by 0 capsule mouth. 8 Active levothyroxine (SYNTHROID) Take by 0 25 MCG tablet mouth. 8 Active divalproex (DEPAKOTE ER) Take 1,000 mg 0 500 MG 24 hr tablet by mouth daily. Active paliperidone (INVEGA) 6 Take 1 tablet 30 tablet 0 03/27/201 MG 24 hr (6 mg total) 9 tabletIndications: by mouth Schizoaffective Disorder daily. Indications: Schizoaffecti ve Disorder 03/26/2018 Discontinued ALPRAZolam (XANAX) 0.5 MG 0 tablet 8 03/26/2018 Discontinued divalproex (DEPAKOTE) 500 Take 1,000 mg 0 05/23/201 MG tablet by mouth. 8 03/26/2018 Discontinued paliperidone (INVEGA) 3 Take 6 mg by 0 MG 24 hr tablet mouth. Active Problems Problem Noted Date Schizoaffective disorder, bipolar type 03/24/2018 Generalized anxiety disorder 03/24/2018 Hypothyroidism 03/24/2018 Depression 03/23/2018 Resolved Problems Problem Noted Date Resolved Date Suicidal ideation 03/24/2018 03/26/2018 Homicidal ideation 03/26/2018 Social History Date Tobacco Use Types Packs/Day Years Used Current Some Day Smoker Cigarettes 0.25 Alcohol Use Drinks/Week oz/Week Comments Not Currently Sex Assigned at Date Recorded Not on file Industry Job Start Date Occupation Not on file Not on file Not on file Travel End Travel History Travel Start No recent travel history available. Last Filed Vital Signs Time Taken Vital Sign Reading 03/26/2018 7:25 AM GEOTECHNICAL DEPARTMENT MANAGER Blood Pressure 119/62 03/26/2018 7:25 AM GEOTECHNICAL DEPARTMENT MANAGER Pulse 99 03/26/2018 7:24 AM GEOTECHNICAL DEPARTMENT MANAGER Temperature 36.2 C (97.2 F) 03/26/2018 7:24 AM GEOTECHNICAL DEPARTMENT MANAGER Respiratory Rate 17 03/26/2018 7:24 AM GEOTECHNICAL DEPARTMENT MANAGER Oxygen Saturation 99% - Inhaled Oxygen - Concentration 03/23/2018 4:33 PM GEOTECHNICAL DEPARTMENT MANAGER Weight 122.5 kg (270 lb) 03/23/2018 4:33 PM GEOTECHNICAL DEPARTMENT MANAGER Height 160 cm (5' 3") 03/23/2018 4:33 PM GEOTECHNICAL DEPARTMENT MANAGER Body Mass Index 47.83 Plan of Treatment Health Maintenance Due Date Last Done Comments Varicella Vaccines (1 of 2008 2 - 13+ 2-dose series) HPV Vaccines (1 - Female 2010 3-dose series) DTaP,Tdap,and Td Vaccines 2014 (1 - Tdap) CERVICAL CANCER SCREENING 2016 Influenza Vaccine Completed 01/25/2018 MenB Vaccine (Bexsero) Aged Out No longer eligible based on patient's age to complete this topic Procedures Comments Procedure Name Priority Date/Time Associated Diagnosis HEMOGLOBIN A1C Timed 03/26/2018 5:37 AM GEOTECHNICAL DEPARTMENT MANAGER EKG 12-LEAD Routine 03/24/2018 1:15 PM GEOTECHNICAL DEPARTMENT MANAGER VALPROIC ACID LEVEL, Timed 03/24/2018 TOTAL 5:19 AM GEOTECHNICAL DEPARTMENT MANAGER LIPID PANEL Timed 03/24/2018 5:19 AM GEOTECHNICAL DEPARTMENT MANAGER from Last 3 Months Results * Hemoglobin A1c (03/26/2018 5:37 AM GEOTECHNICAL DEPARTMENT MANAGER) Hemoglobin A1C 5.8 (H) <5.7 % [facility] Specimen Blood Narrative Performed At [place] [employer] recommendations are as follows: [facility] Normal - A1c less than 5.7% LABORATORY Prediabetes - A1c 5.7 - 6.4% Diabetes - A1c 6.5% or greater Performing Organization Address City/State/Zipcode Phone Number [facility] [address] [place] [address] * EKG 12 lead (03/24/2018 1:15 PM GEOTECHNICAL DEPARTMENT MANAGER) Height in PHILIPSECG Heart Rate 81 bpm PHILIPSECG Interval 741 ms PHILIPSECG Atrial Rate 82 ms PHILIPSECG SV P-R Interval 118 ms PHILIPSECG P Duration 97 ms PHILIPSECG P Horizontal 27 deg PHILIPSECG [place] P Front [place] 45 deg PHILIPSECG Q Onset 499 ms PHILIPSECG QRSD Interval 89 ms PHILIPSECG QT Interval 357 ms PHILIPSECG QTcB 415 ms PHILIPSECG QTcF 395 ms PHILIPSECG QRS Horizontal 11 deg PHILIPSECG [place] QRS AXIS 62 deg PHILIPSECG I40 Horizontal 68 deg PHILIPSECG [place] I40 Front [place] 6 deg PHILIPSECG T-40 Horizontal -18 deg PHILIPSECG [place] T-40 Front [place] 86 deg PHILIPSECG T Horizontal 51 deg PHILIPSECG [place] T Wave [place] 15 deg PHILIPSECG S-T HORIZONTAL 81 deg PHILIPSECG AXIS S-T FRONT AXIS -12 deg PHILIPSECG ECG Impression - NORMAL ECG - PHILIPSECG ECG Impression SR PHILIPSECG ECG Impression Sinus rhythm PHILIPSECG ECG Impression normal P axis, V-rate 60-99 PHILIPSECG Performing Organization Address [facility] Phone Number PHILIPSECG * Valproic acid level, total (03/24/2018 5:19 AM GEOTECHNICAL DEPARTMENT MANAGER) [facility] Valproic Acid 21 (L) 50 - 100 ug/mL [facility] Lvl LABORATORY Specimen Blood Performing Organization Address [facility] Phone Number [facility] [address] [place] [address] [phone] * Lipid panel (03/24/2018 5:19 AM GEOTECHNICAL DEPARTMENT MANAGER) [facility] Cholesterol 187 <=200 mg/dL [facility] Triglycerides 154 (H) 0 - 149 mg/dL [facility] HDL 33 (L) 40 - 90 mg/dL [facility] LDL Cholesterol 123 mg/dL [facility] Non-HDL 154 (H) 0 - 129 mg/dL [facility] Cholesterol LABORATORY Specimen Blood Narrative Performed At [facility] GUIDLINES FOR LDL: [facility] Optimal: <100 mg/dL LABORATORY Near Optimal:100-129 mg/dL Borderline High: 130-159 mg/dL High:160-189 mg/dL Very High: >=190 mg/dL Performing Organization Address City/State/Zipcode Phone Number [facility] [address] [place] [address] [phone] from Last 3 Months Insurance Type Payer Benefit Subscriber ID Effective Phone Address Plan / Dates Group MEDICAID [place] MEDICAID xxxxxxxxxxx 2018- [address] [place] [address] Advance Directives Patient has advance care planning documents, and code status on file. For more information, please contact: [facility] [address] [place] [id number] Date Inactivated Comments Code Status Date Activated Full Code 03/26/2018 1:27 PM 03/26/2018 1:27 PM Full Code 03/23/2018 5:16 PM
--- NOTE | 2018-04-15 17:42 | NUR ---
[facility] A [facility]CH PATIENT IN ROOM . PLACED IN FAMILY ROOM Addendum: 04/15/18 at 1744 by PMCNAZ CHECKED PATIENT ASHLEE HAS BABY DOLL, CELL PHONE AND JASWANT .
--- NOTE | 2018-04-15 17:50 | NUR ---
PATIENT REPORTS SHE DROVE SELF TO ER AND THAT NO KNOWES SHE IS HERE.
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
[2018-04-15 18:59] LABS: BILIRUBIN,URINE NEGATIVE (NEGATIVE); CLARITY,URINE CLEAR; COLOR,URINE YELLOW; GLUCOSE, URINE (UA) NEGATIVE (NEGATIVE); KETONES,URINE NEGATIVE (NEGATIVE); LEUKOCYTE ESTERASE ,URINE NEGATIVE (NEGATIVE); NITRITE,URINE NEGATIVE (NEGATIVE); PH,URINE 7 (5-9); PROTEIN,URINE NEGATIVE (NEGATIVE); UROBILINOGEN,URINE NORMAL (NORMAL)
[2018-04-15 19:15] LABS: RBC,URINE 0-2 /HPF
[2018-04-15 19:16] LABS: AMPHETAMINE SCREEN, URINE NEGATIVE (NEGATIVE); BARBITURATE SCREEN URINE NEGATIVE (NEGATIVE); BENZODIAZEPINES SCREEN URINE NEGATIVE (NEGATIVE); CANNABINOID SCREEN, URINE NEGATIVE (NEGATIVE); COCAINE SCREEN URINE NEGATIVE (NEGATIVE); HCG,QUALITATIVE URINE NEGATIVE (NEGATIVE); METHADONE STAT NEGATIVE (NEGATIVE); METHAMPHETAMINE SCREEN URINE S NEGATIVE (NEGATIVE); OPIATE SCREEN URINE NEGATIVE (NEGATIVE); OXYCODONE STAT NEGATIVE (NEGATIVE); PROPOXYPHENE STAT NEGATIVE (NEGATIVE); TRICYCLIC ANTIDEPRESSANTS SCRE NEGATIVE (NEGATIVE)
--- NOTE | 2018-04-15 19:45 | NUR ---
PT MOVED TO ROOM #8 DUE TO CURRENT AVAILABILITY. NO DISTRESS NOTED.
[2018-04-15 20:37] LABS: BASOPHILS % (AUTO) 0 % (0-10); EOSINOPHILS # (AUTO) 0.2 10^3/uL (0.0-0.3); EOSINOPHILS % (AUTO) 2 % (0-10); HEMATOCRIT 39 % (35-52); HEMOGLOBIN 12.5 G/DL (11.5-16.0); LYMPHOCYTES # (AUTO) 2.4 X 10^3 (1.0-4.0); LYMPHOCYTES % (AUTO) 34 % (12-44); MEAN CORPUSCULAR HEMOGLOBIN 26 PG (25-34); MEAN CORPUSCULAR HGB CONC 32 G/DL (32-36); MEAN CORPUSCULAR VOLUME 79 FL (80-99); MEAN PLATELET VOLUME 9.9 FL (7.4-10.4); MONOCYTES # (AUTO) 0.7 X 10^3 (0.0-1.0); MONOCYTES % (AUTO) 10 % (0-12); NEUTROPHILS # (AUTO) 3.7 X 10^3 (1.8-7.8); NEUTROPHILS % (AUTO) 53 % (42-75); PLATELET COUNT 298 10^3/uL (130-400); RED CELL DISTRIBUTION WIDTH 15.8 % (10.0-14.5)
[2018-04-15 21:00] LABS: ALANINE AMINOTRANSFERASE 38 U/L (0-55); ALBUMIN 4.1 GM/DL (3.2-4.5); ALKALINE PHOSPHATASE 109 U/L (40-136); BILIRUBIN,TOTAL 0.3 MG/DL (0.1-1.0); BUN/CREATININE RATIO 13; CALCIUM 9.2 MG/DL (8.5-10.1); CARBON DIOXIDE 21 MMOL/L (21-32); CHLORIDE 105 MMOL/L (98-107); CREATININE SERUM 0.72 MG/DL (0.60-1.30); GFR ESTIMATED > 60; GLUCOSE 83 MG/DL (70-105); SALICYLATE < 5.0 MG/DL (5.0-20.0); SODIUM 138 MMOL/L (135-145)
[2018-04-15 21:03] LABS: ACETAMINOPHEN < 10 UG/ML (10-30)
--- NOTE | 2018-04-15 21:45 | NUR ---
PT RESTING ON ED CART IN ROOM #8. RESPIRATIONS EVEN AND NON LABORED. NO DISTRESS NOTED. PT REPORTS NO NEEDS OR CONCERNS @ THIS TIME. WILL CONTINUE TO MONITOR.
--- NOTE | 2018-04-15 22:45 | NUR ---
[facility]
--- NOTE | 2018-04-15 23:00 | NUR ---
REPORT GIVEN TO DENIZ HERNANDEZ @ [facility]. PT ASSIGNED TO BED #[id number]. DENIZ HERNANDEZ REPORTS PT ROOM NEEDS CLEANED AND STATES, "IT COULD TAKE HALF THE NIGHT." REPORTS SHE WILL CALL THIS ED WHEN BED IS AVAILABLE TO PT.
--- NOTE | 2018-04-16 00:34 | NUR ---
PT RESTING ON ED CART. RESPIRATIONS EVEN AND NON LABORED. VOICES NO C/O OR CONCERNS @ THIS TIME. NO DISTRESS NOTED.
--- NOTE | 2018-04-16 01:48 | NUR ---
DENIZ HERNANDEZ FROM [facility] CONTACTED THIS RN TO REPORT PT ROOM #8004 IS READY FOR PT ARRIVAL. [facility] ACCEPTED TO TRANSPORT PT TO [facility].
[2018-04-16 02:15] VITALS: BP 138/87
== END 2018-04-16 02:15 | disposition short-term general hospital (02) ==
LOC: EDUNIT# 17:28 → ER 17:29
DX: R45.851 Suicidal ideations (principal); F25.9 Schizoaffective disorder, unspecified; G43.909 Migraine, unspecified, not intractable, without status migrainosus; F12.10 Cannabis abuse, uncomplicated; E66.9 Obesity, unspecified; E03.9 Hypothyroidism, unspecified; F41.9 Anxiety disorder, unspecified; F31.9 Bipolar disorder, unspecified; F17.210 Nicotine dependence, cigarettes, uncomplicated; F60.3 Borderline personality disorder; Z88.8 Allergy status to other drugs, medicaments and biological substances; Z91.5 Personal history of self-harm; Z68.42 Body mass index [BMI] 45.0-49.9, adult; Z87.440 Personal history of urinary (tract) infections
CPT/HCPCS: 36415; 80053; 80306; 80320; 80329; 81000; 84443; 84703; 85025; 93005

== ENCOUNTER 2018-06-14 00:59 | Emergency (ER) | payer SELFPAY ==
[~2018-06-14] VITALS: Ht 160 cm; Wt 124.7 kg
--- OUTSIDE RECORDS SUMMARY | 2018-06-14 01:05 | XMS REPORT | Clinical Summary ---
Author Author [facility] Organization [facility] Address Unknown Phone Unavailable Care Team Providers Care Screen Operator Name Role Phone Unassigned, None PP Unavailable [...] Schizoaffective Disorder daily. Indications: Schizoaffecti ve Disorder Active Problems Problem Noted Date Schizoaffective disorder, [...] Taken Vital Sign Reading 03/26/2018 7:25 AM CLINICAL SCIENCES PROFESSOR Blood Pressure 119/62 03/26/2018 7:25 AM CLINICAL SCIENCES PROFESSOR Pulse 99 03/26/2018 7:24 AM CLINICAL SCIENCES PROFESSOR Temperature 36.2 C (97.2 F) 03/26/2018 7:24 AM CLINICAL SCIENCES PROFESSOR Respiratory Rate 17 03/26/2018 7:24 AM CLINICAL SCIENCES PROFESSOR Oxygen Saturation 99% - Inhaled Oxygen - Concentration 03/23/2018 4:33 PM CLINICAL SCIENCES PROFESSOR Weight 122.5 kg (270 lb) 03/23/2018 4:33 PM CLINICAL SCIENCES PROFESSOR Height 160 cm (5' 3") 03/23/2018 4:33 PM CLINICAL SCIENCES PROFESSOR Body Mass Index 47.83 Plan of Treatment [...] Diagnosis HEMOGLOBIN A1C Timed 03/26/2018 5:37 AM CLINICAL SCIENCES PROFESSOR EKG 12-LEAD Routine 03/24/2018 1:15 PM CLINICAL SCIENCES PROFESSOR VALPROIC ACID LEVEL, Timed 03/24/2018 TOTAL 5:19 AM CLINICAL SCIENCES PROFESSOR LIPID PANEL Timed 03/24/2018 5:19 AM CLINICAL SCIENCES PROFESSOR from Last 3 Months Results * Hemoglobin A1c (03/26/2018 5:37 AM CLINICAL SCIENCES PROFESSOR) Hemoglobin A1C 5.8 (H) <5.7 % [facility] Specimen Blood Narrative Performed At [place] [employer] recommendations are as follows: [facility] Normal - A1c less than 5.7% LABORATORY Prediabetes - A1c 5.7 - 6.4% Diabetes - A1c 6.5% or greater Performing Organization Address City/State/Zipcode Phone Number [facility] [address] [place] [address] [phone] * EKG 12 lead (03/24/2018 1:15 PM CLINICAL SCIENCES PROFESSOR) Height in PHILIPSECG Heart Rate 81 bpm PHILIPSECG Interval 741 ms PHILIPSECG Atrial Rate 82 ms PHILIPSECG SV P-R Interval 118 ms PHILIPSECG P Duration 97 ms PHILIPSECG P Horizontal 27 deg PHILIPSECG [place] P Front [place] 45 deg PHILIPSECG Q Onset 499 ms PHILIPSECG QRSD Interval 89 ms PHILIPSECG QT Interval 357 ms PHILIPSECG QTcB 415 ms PHILIPSECG QTcF 395 ms PHILIPSECG QRS Horizontal 11 deg PHILIPSECG [place] QRS AXIS 62 deg PHILIPSECG I40 Horizontal 68 deg PHILIPSECG [place] I40 Front [place] 6 deg PHILIPSECG T-40 Horizontal -18 deg PHILIPSECG [place] T-40 Front [place] 86 deg PHILIPSECG T Horizontal 51 deg PHILIPSECG [place] T Wave [place] 15 deg PHILIPSECG S-T HORIZONTAL 81 deg PHILIPSECG AXIS S-T FRONT AXIS -12 deg PHILIPSECG ECG Impression - NORMAL ECG - PHILIPSECG ECG Impression SR PHILIPSECG ECG Impression Sinus rhythm PHILIPSECG ECG Impression normal P axis, V-rate 60-99 PHILIPSECG Performing Organization Address [facility] Phone Number PHILIPSECG * Valproic acid level, total (03/24/2018 5:19 AM CLINICAL SCIENCES PROFESSOR) Pathologist [facility] Valproic Acid 21 (L) 50 - 100 ug/mL [facility] Lvl LABORATORY Specimen Blood Performing Organization Address [facility] Phone Number [facility] [address] [place], [place] [address] * Lipid panel (03/24/2018 5:19 AM CLINICAL SCIENCES PROFESSOR) [facility] Cholesterol 187 <=200 mg/dL [facility] Triglycerides 154 (H) 0 - 149 mg/dL [facility] HDL 33 (L) 40 - 90 mg/dL [facility] LDL Cholesterol 123 mg/dL [facility] Non-HDL 154 (H) 0 - 129 mg/dL [facility] Cholesterol LABORATORY Specimen Blood Narrative Performed At [facility] GUIDLINES FOR LDL: [facility] Optimal: <100 mg/dL LABORATORY Near Optimal:100-129 mg/dL Borderline High: 130-159 mg/dL High:160-189 mg/dL Very High: >=190 mg/dL Performing Organization Address [facility] Phone Number [facility] [address] [place], [place] [address] from Last 3 Months Insurance Type Payer Benefit Subscriber ID Effective Phone Address Plan / Dates Group MEDICAID [employer] MEDICAID xxxxxxxxxxx 2018- [address] [place] [address] Advance Directives Patient has advance care planning documents, and code status on file. For more information, please contact: [facility] [address] [place] [address] Date Inactivated Comments Code Status Date Activated Full Code 03/26/2018 1:27 PM 03/26/2018 1:27 PM Full Code 03/23/2018 5:16 PM
--- NOTE | 2018-06-14 04:02 | ED Psychosocial ---
General Chief Complaint: Psych/Social Disorder Stated Complaint: ANXIETY FEELING BAD Source: patient Exam Limitations: no limitations History of Present Illness Date Seen by Provider: Jun 14, 2018 Time Seen by Provider: 03:44 Initial Comments Patient says she is having a panic attack nuvia was having some "homicidal ideation that she gets whenever she thinks about [address] people such as Vikings it makes her get a blood lust." She denies having any homicidal ideation towards any person in particular. She says she was starting to get very anxious and felt herself being about cutting but she said she did not actually cut on herself. She also started entertaining some suicidal ideations but had no plan and said that passed relatively quickly. She came to the ER for help because she does not have any medication that she takes on an as-needed basis. As she was sitting in the ER lobby however she began to calm down and fall asleep and her symptoms subsided. She said recently in the last couple weeks her psychiatrist changed her medication to a new medicine for her antipsychotic and it is still on a low dose and she thinks it needs elevated. She was supposed to meet with her psychiatrist last week but she missed the appointment. Her next appointment is in about 2-3 weeks. She has a counselor appointment this week. Her fianc is staying with her Allergies and Home Medications Allergies Coded Allergies: haloperidol (Verified Allergy, Mild, 12/16/14) Home Medications Divalproex Sodium 500 Mg Tab.er.24h, 1,000 MG PO HS, (Reported) TAKES 2 (500MG) TABLETS Fluoxetine HCl 20 Mg Capsule, 20 MG PO HS, (Reported) Levothyroxine Sodium 25 Mcg Tablet, 25 MCG PO DAILY, (Reported) Patient Home Medication List Home Medication List Reviewed: Yes Review of Systems Constitutional: No chills, No diaphoresis EENTM: No no symptoms reported, No ear pain Respiratory: No cough, No short of breath Cardiovascular: No edema, No Hx of Intervention, No palpitations Gastrointestinal: abdominal pain (burning epigastric pain intermittent after meals.) Past Fgohogh-Roaxdk-Knvtsw Hx Patient Social History Alcohol Use: Denies Use Recreational Drug Use: Yes Drug of Choice: THC Smoking Status: Current Everyday Smoker Type Used: Cigarettes 2nd Hand Smoke Exposure: No Recent Foreign Travel: No Contact w/Someone Who Travel: No Recent Hopitalizations: No Immunizations Up To Date Tetanus Booster (TDap): Unknown Date of Influenza Vaccine: Jan 01, 2018 Seasonal Allergies Seasonal Allergies: No Past Medical History Surgeries: No Respiratory: No Cardiac: No Neurological: Yes Headaches /Migraines Reproductive Disorders: No Female Reproductive Disorders: Denies Genitourinary: Yes UTI-Chronic Gastrointestinal: No Musculoskeletal: No Endocrine: Yes (OBESITY) Hypothyroidsim HEENT: No Cancer: No Psychosocial: Yes Anxiety, Suicide Attempts, Bipolar, Schizophrenia, Depression Integumentary: No Blood Disorders: No Family Medical History Asthma 19 MOTHER No Pertinent Family Hx Physical Exam Capillary Refill : Height, Weight, BMI Height: 5'3.00" Weight: 270lbs. 5.0oz. 122.336600gr; 47.9 BMI Method:Stated General Appearance: WD/WN, no apparent distress HEENT: PERRL/EOMI, pharynx normal Respiratory: no respiratory distress, no accessory muscle use Cardiovascular: normal peripheral pulses, regular rate, rhythm Gastrointestinal: normal bowel sounds, non tender, soft Neurologic/Psychiatric: alert, normal mood/affect, oriented x 3, other (denies suicidal ideation, homicidal ideation or hallucinations.) Appearance/Memory: appropriate appearance, appropriate insight, neat Behavior/Eye Contact: cooperative, good eye contact, normal speech Thoughts/Hallucinations: normal thought pattern, no apparent hallucination Skin: normal color, warm/dry, other (Ink alcocer on her left wrist but no cutting recently.) Progress/Results/Core Measures Progress Progress Note : Time: 04:04 Progress Note We discussed breathing techniques and exercises. She says she likes to use rhythmic dance to help with her anxiety attacks. We discussed that these episodes are transient and offered the patient workup and evaluation versus just following up outpatient tomorrow and calling for a closer psychiatrist appointment. She says she just remembered that she can call for a closer appointment with her psychiatrist if she is in crisis and she thinks that that would be a much better idea. She still denies suicidal ideation or homicidal ideation currently. She is smiling, happy and making jokes. She says she feels much better now that her panic attack is passed and would like to go home with her fianc. We called the [facility] line and arranged for them to call and check on her in the morning. The patient has agreed not to commit suicide and if she has any further feelings of suicide or self-harm she would return to the ER. Her fipawel agrees to stay with her and bring her back to the ER if she has any further deterioration. She has a counseling appointment this week and will call for her psychiatrist to get a closer appointment to discuss increasing her antipsychotic medication or other interventions. Departure Impression Primary Impression: Anxiety Additional Impression: Passive suicidal ideations Disposition: 01 HOME, SELF-CARE Condition: Stable Departure-Patient Inst. Decision time for Depature: 04:07 Referrals: [facility] [place] (PCP/Family) Primary Care Physician Patient Instructions: SUICIDE CONTRACT, Suicide Prevention Add. Discharge Instructions: If you begin to have suicidal ideation or thoughts of self-harm again please return to the ER or call the [phone] line for help. Tomorrow please call [facility] psychiatrist office and request a closer appointment. Follow-up with your counseling appointment as scheduled. You can also follow up with your primary care doctor for help with medication management. All discharge instructions reviewed with patient and/or family. Voiced understanding. NANCY FLORES Jun 14, 2018 04:02
[2018-06-14 04:20] VITALS: BP 130/95
== END 2018-06-14 04:23 | disposition home or self-care (01) ==
LOC: EDUNIT# 00:59 → ER 01:01
DX: F41.9 Anxiety disorder, unspecified (principal); R45.851 Suicidal ideations; G43.909 Migraine, unspecified, not intractable, without status migrainosus; E66.9 Obesity, unspecified; E03.9 Hypothyroidism, unspecified; F31.9 Bipolar disorder, unspecified; F20.9 Schizophrenia, unspecified; F12.10 Cannabis abuse, uncomplicated; F17.210 Nicotine dependence, cigarettes, uncomplicated; Z88.8 Allergy status to other drugs, medicaments and biological substances; Z87.440 Personal history of urinary (tract) infections; Z91.5 Personal history of self-harm; Z68.42 Body mass index [BMI] 45.0-49.9, adult
CPT/HCPCS: 99283

== ENCOUNTER 2018-06-14 20:44 | Emergency (ER) | payer SELFPAY ==
[~2018-06-14] VITALS: Ht 160 cm; Wt 124.7 kg
--- OUTSIDE RECORDS SUMMARY | 2018-06-14 21:12 | XMS REPORT | Clinical Summary ---
Author Author [facility] Organization [facility] Address Unknown Phone Unavailable Care Team Providers Care Label Tacker Name Role Phone Unassigned, None PP Unavailable [...] Taken Vital Sign Reading 03/26/2018 7:25 AM [employer] [employer] T[employer] Blood Pressure 119/62 03/26/2018 7:25 AM [employer] [employer] Pulse 99 03/26/2018 7:24 AM [employer] [employer] Temperature 36.2 C (97.2 F) 03/26/2018 7:24 AM [employer] [employer] Respiratory Rate 17 03/26/2018 7:24 AM [employer] [employer] Oxygen Saturation 99% - Inhaled Oxygen - Concentration 03/23/2018 4:33 PM [employer] Weight 122.5 kg (270 lb) 03/23/2018 4:33 PM [employer] [employer] Height 160 cm (5' 3") 03/23/2018 4:33 PM [employer] [employer] Body Mass Index 47.83 Plan of Treatment [...] Diagnosis HEMOGLOBIN A1C Timed 03/26/2018 5:37 AM [facility] [employer] EKG 12-LEAD Routine 03/24/2018 1:15 PM [employer] [employer] VALPROIC ACID LEVEL, Timed 03/24/2018 TOTAL 5:19 AM [employer] [employer] LIPID PANEL Timed 03/24/2018 5:19 AM [employer] [employer] TENDER from Last 3 Months Results * Hemoglobin A1c (03/26/2018 5:37 AM [employer] [employer] TENDER) Hemoglobin A1C 5.8 (H) <5.7 % [facility] Specimen Blood Narrative Performed At [employer] recommendations are as follows: [facility] Normal - A1c less than 5.7% LABORATORY Prediabetes - A1c 5.7 - 6.4% Diabetes - A1c 6.5% or greater Performing Organization Address City/State/Zipcode Phone Number [facility] [address] [place] [address] [phone] * EKG 12 lead (03/24/2018 1:15 PM [employer] [employer] BACK TENDER) Height in PHILIPSECG Heart Rate 81 bpm PHILIPSECG Interval 741 ms PHILIPSECG Atrial Rate 82 ms PHILIPSE[facility] SV P-R Interval 118 ms PHILIPSE[facility] P Duration 97 ms PHILIPSECG P Horizontal 27 deg PHILIPSECG [place] P Front [place] 45 deg PHILIPSECG Q Onset 499 ms PHILIPSECG QRSD Interval 89 ms PHILIP[facility] QT Interval 357 ms PH[facility] QTcB 415 ms PHILIP[facility]CG QTcF 395 ms PHILIP[facility]CG QRS Horizontal 11 deg PHILIPSECG [place] QRS AXIS 62 deg PHILIPSECG I40 Horizontal 68 deg PHILIPSECG [place] I40 Front [place] 6 deg PHILIPSECG T-40 Horizontal -18 deg PHILIPSECG [place] T-40 Front [place] 86 deg PHILIPSECG T Horizontal 51 deg PHILIPSECG [place] T Wave [place] 15 deg PHILIPSECG S-T HORIZONTAL 81 deg PHILIPSECG AXIS S-T FRONT AXIS -12 deg PHILIPSE[facility] ECG Impression - NORMAL ECG - PHILIPSECG ECG Impression SR PHILIPSE[facility] ECG Impression Sinus rhythm PHILIPSECG ECG Impression normal P axis, V-rate 60-99 PHILIPSECG Performing Organization Address [facility] Phone Number PHILIPSECG * Valproic acid level, total (03/24/2018 5:19 AM [facility] [employer] TENDER) Pathologist [facility] Valproic Acid 21 (L) 50 - 100 ug/mL [facility] Lvl LABORATORY Specimen Blood Performing Organization Address [facility] Phone Number [facility] [address] [place], [place] [address] * Lipid panel (03/24/2018 5:19 AM [employer] [employer] BACK TENDER) [facility] Cholesterol 187 <=200 mg/dL [facility] Triglycerides 154 (H) 0 - 149 mg/dL [facility] HDL 33 (L) 40 - 90 mg/dL [facility] LDL Cholesterol 123 mg/dL [facility] Non-HDL 154 (H) 0 - 129 mg/dL [facility] Cholesterol LABORATORY Specimen Blood Narrative Performed At [facility] GUIDLINES FOR LDL: [facility] Optimal: <100 mg/dL LABORATORY Near Optimal:100-129 mg/dL Borderline High: 130-159 mg/dL High:160-189 mg/dL Very High: >=190 mg/dL Performing Organization Address [facility] Phone Number [facility] [address] [place], [place] [address] from Last 3 Months Insurance Type Payer Benefit Subscriber ID Effective Phone Address Plan / Dates Group MEDICAID POTENTIAL MEDICAID xxxxxxxxxxx 2018- [address] [place] [address] Advance Directives Patient has advance care planning documents, and code status on file. For more information, please contact: [facility] [address] [place] [address] Date Inactivated Comments Code Status Date Activated Full Code 03/26/2018 1:27 PM 03/26/2018 1:27 PM Full Code 03/23/2018 5:16 PM
[2018-06-14 21:14] LABS: BILIRUBIN,URINE NEGATIVE (NEGATIVE); CLARITY,URINE SLIGHTLY CLOUDY; COLOR,URINE YELLOW; GLUCOSE, URINE (UA) NEGATIVE (NEGATIVE); KETONES,URINE NEGATIVE (NEGATIVE); LEUKOCYTE ESTERASE ,URINE 1+ (NEGATIVE); NITRITE,URINE NEGATIVE (NEGATIVE); PH,URINE 7 (5-9); PROTEIN,URINE NEGATIVE (NEGATIVE); UROBILINOGEN,URINE 1 MG/DL (NORMAL)
[2018-06-14 21:17] LABS: HCG,QUALITATIVE URINE NEGATIVE (NEGATIVE)
[2018-06-14 21:21] LABS: AMORPHOUS SEDIMENT,UR FEW AMOR URATES /LPF; BACTERIA,URINE TRACE /HPF; SQUAMOUS EPITHELIAL CELL,UR 25-50 /HPF
[2018-06-14 21:25] LABS: BASOPHILS % (AUTO) 0 % (0-10); EOSINOPHILS # (AUTO) 0.1 10^3/uL (0.0-0.3); EOSINOPHILS % (AUTO) 2 % (0-10); HEMATOCRIT 40 % (35-52); HEMOGLOBIN 12.8 G/DL (11.5-16.0); LYMPHOCYTES # (AUTO) 2.9 X 10^3 (1.0-4.0); LYMPHOCYTES % (AUTO) 36 % (12-44); MEAN CORPUSCULAR HEMOGLOBIN 25 PG (25-34); MEAN CORPUSCULAR HGB CONC 32 G/DL (32-36); MEAN CORPUSCULAR VOLUME 79 FL (80-99); MEAN PLATELET VOLUME 10.6 FL (7.4-10.4); MONOCYTES # (AUTO) 0.6 X 10^3 (0.0-1.0); MONOCYTES % (AUTO) 7 % (0-12); NEUTROPHILS # (AUTO) 4.4 X 10^3 (1.8-7.8); NEUTROPHILS % (AUTO) 55 % (42-75); PLATELET COUNT 309 10^3/uL (130-400); RED CELL DISTRIBUTION WIDTH 16.1 % (10.0-14.5)
[2018-06-14 21:33] LABS: AMPHETAMINE SCREEN, URINE NEGATIVE (NEGATIVE); BARBITURATE SCREEN URINE NEGATIVE (NEGATIVE); BENZODIAZEPINES SCREEN URINE POSITIVE (NEGATIVE); CANNABINOID SCREEN, URINE NEGATIVE (NEGATIVE); COCAINE SCREEN URINE NEGATIVE (NEGATIVE); METHADONE STAT NEGATIVE (NEGATIVE); METHAMPHETAMINE SCREEN URINE S NEGATIVE (NEGATIVE); OPIATE SCREEN URINE NEGATIVE (NEGATIVE); OXYCODONE STAT NEGATIVE (NEGATIVE); PROPOXYPHENE STAT NEGATIVE (NEGATIVE); TRICYCLIC ANTIDEPRESSANTS SCRE NEGATIVE (NEGATIVE)
--- NOTE | 2018-06-14 21:36 | ED Psychosocial ---
General Chief Complaint: Suicidal Ideation Risk Stated Complaint: SUICIDAL IDEATIONS Nursing Triage Note: PT AMB TO RM 8 WITH COMPLAINT OF SUICIDIAL IDEATIONS. PT STATES SHE IS FEELING SUICIDIAL AND HOMICIDIAL. PT STATES SHE SPOKE WITH [facility] [employer] CHAIRMAN & CEO. STATES SHE FEELS SHE IS UNABLE TO STAY AT HOME WITHOUTH HURTING HERSELF. PT STATES SHE DOES HAVE A PLAN TO KILL HERSELF. STATES SHE WOULD TAKE ALL OF HER GRANDMAS PILLS AND THEN CUT HERSELF. STATES SHE ATTEMPTED TO CUT HERSELF TODAY. Source: patient Exam Limitations: no limitations (SUMMER SORENSEN) History of Present Illness Date Seen by Provider: Jun 14, 2018 Time Seen by Provider: 20:50 Initial Comments 23-year-old female who presents to the emergency room with complaints of suicidal ideations. She reports that she is feeling suicidal and homicidal. She was seen and evaluated in the emergency room this morning and had a screening and had outpatient services set up for later this week and a safety plan was in place. She did call the save line and they advised her to come to the emergency room. When questioned if she had a plan she said that she was going to "take all of migraine mother's medications and then cut her wrists until she believes to ". She reports that she held a knife up to her left wrist but only push the blade in causing 4 small abrasions to her left inner wrist. She is alert and oriented on arrival to the emergency room. Timing/Duration: other (today) Associated Symptoms: suicidal ideation (SUMMER SORENSEN) Allergies and Home Medications Allergies Coded Allergies: haloperidol (Verified Allergy, Mild, 12/16/14) Home Medications Divalproex Sodium 500 Mg Tab.er.24h, 1,000 MG PO HS, (Reported) TAKES 2 (500MG) TABLETS Fluoxetine HCl 20 Mg Capsule, 20 MG PO HS, (Reported) Levothyroxine Sodium 25 Mcg Tablet, 25 MCG PO DAILY, (Reported) Patient Home Medication List Home Medication List Reviewed: Yes (SUMMER SORENSEN) Review of Systems Constitutional: see HPI; No chills, No fever Skin: see HPI, other (abrasions to left inner wrist) Psychiatric/Neurological: See HPI, Depressed, Emotional Problems (suicidal ideation, homicidal ideations) (SUMMER SORENSEN) All Other Systems Reviewed Negative Unless Noted: Yes (SUMMER SORENSEN) Past Qvkyldu-Yjzvfl-Kmxywr Hx Past Med/Social Hx: Reviewed Nursing Past Med/Soc Hx (SUMMER SORENSEN) Patient Social History Alcohol Use: Denies Use Recreational Drug Use: Yes (denies use at this time) Drug of Choice: HX OF THC Type Used: Cigarettes 2nd Hand Smoke Exposure: No Recent Foreign Travel: No Contact w/Someone Who Travel: No Recent Infectious Disease Expo: No Recent Hopitalizations: No Physical Abuse: No Sexual Abuse: No (SUMMER SROENSEN) Immunizations Up To Date Tetanus Booster (TDap): Unknown Date of Influenza Vaccine: Jan 01, 2018 (SUMMER SORENSEN) Seasonal Allergies Seasonal Allergies: No (SUMMER SORENSEN) Past Medical History Surgeries: No Respiratory: No Cardiac: No Neurological: Yes Headaches /Migraines Reproductive Disorders: No Female Reproductive Disorders: Denies Genitourinary: Yes UTI-Chronic Gastrointestinal: No Musculoskeletal: No Endocrine: Yes (OBESITY) Hypothyroidsim HEENT: No Cancer: No Psychosocial: Yes Anxiety, Suicide Attempts, Bipolar, Schizophrenia, Depression Integumentary: No Blood Disorders: No (SUMMER SORENSEN) Family Medical History Reviewed Nursing Family Hx (SUMMER SORENSEN) Asthma 19 MOTHER No Pertinent Family Hx (SUMMER SORENSEN) Physical Exam Vital Signs - First Documented 06/14/18 20:52 Temp 97.9 Pulse 94 Resp 20 B/P (MAP) 132/79 (96) Pulse Ox 99 O2 Delivery Room Air (NANCY PEREZ) Capillary Refill : Less Than 3 Seconds (SUMMER SORENSEN) Height, Weight, BMI Height: 5'3.00" Weight: 275lbs. 5.0oz. 124.475395am; 47.9 BMI Method:Stated General Appearance: WD/WN, no apparent distress HEENT: PERRL/EOMI, normal ENT inspection, TMs normal, pharynx normal Respiratory: chest non-tender, lungs clear, normal breath sounds, no respiratory distress, no accessory muscle use, respiratory distress Cardiovascular: normal peripheral pulses, regular rate, rhythm, no edema, no gallop, no JVD, no murmur Extremities: normal capillary refill Neurologic/Psychiatric: alert, normal mood/affect, oriented x 3 Appearance/Memory: appropriate appearance, appropriate insight, neat Behavior/Eye Contact: cooperative, good eye contact, normal speech Thoughts/Hallucinations: normal thought pattern, no apparent hallucination Skin: normal color, warm/dry, other (4 linear abrasions to the left inner wrist.) (SUMMER SORENSEN) Progress/Results/Core Measures Results/Orders Lab Results Laboratory Tests Test 06/14/18 21:00 06/14/18 21:17 Range/Units Urine Color YELLOW Urine Clarity SLIGHTLY CLOUDY Urine pH 7 5-9 Urine Specific [place] 1.010 L 1.016-1.022 Urine Protein NEGATIVE NEGATIVE Urine Glucose (UA) NEGATIVE NEGATIVE Urine Ketones NEGATIVE NEGATIVE Urine Nitrite NEGATIVE NEGATIVE Urine Bilirubin NEGATIVE NEGATIVE Urine Urobilinogen 1 NORMAL MG/DL Urine Leukocyte Esterase 1+ H NEGATIVE Urine RBC (Auto) 2+ H NEGATIVE Urine RBC NONE /HPF Urine WBC 2-5 /HPF Urine Squamous Epithelial Cells 25-50 H /HPF Urine Crystals NONE /LPF Urine Amorphous Sediment FEW PRICILA URATES H /LPF Urine Bacteria TRACE /HPF Urine Casts NONE /LPF Urine Mucus NEGATIVE /LPF Urine Culture Indicated NO Urine Test NEGATIVE NEGATIVE Urine Opiates Screen NEGATIVE NEGATIVE Urine Oxycodone Screen NEGATIVE NEGATIVE Urine Methadone Screen NEGATIVE NEGATIVE Urine Propoxyphene Screen NEGATIVE NEGATIVE Urine Barbiturates Screen NEGATIVE NEGATIVE Ur Tricyclic Antidepressants Screen NEGATIVE NEGATIVE Urine Phencyclidine Screen NEGATIVE NEGATIVE Urine Amphetamines Screen NEGATIVE NEGATIVE Urine Methamphetamines Screen NEGATIVE NEGATIVE Urine Benzodiazepines Screen POSITIVE H NEGATIVE Urine Cocaine Screen NEGATIVE NEGATIVE Urine Cannabinoids Screen NEGATIVE NEGATIVE White Blood Count 8.0 4.3-11.0 10^3/uL Red Blood Count 5.06 4.35-5.85 10^6/uL Hemoglobin 12.8 11.5-16.0 G/DL Hematocrit 40 35-52 % Mean Corpuscular Volume 79 L 80-99 FL Mean Corpuscular Hemoglobin 25 25-34 PG Mean Corpuscular Hemoglobin Concent 32 32-36 G/DL Red Cell Distribution Width 16.1 H 10.0-14.5 % Platelet Count 309 130-400 10^3/uL Mean Platelet Volume 10.6 H 7.4-10.4 FL Neutrophils (%) (Auto) 55 42-75 % Lymphocytes (%) (Auto) 36 12-44 % Monocytes (%) (Auto) 7 0-12 % Eosinophils (%) (Auto) 2 0-10 % Basophils (%) (Auto) 0 0-10 % Neutrophils # (Auto) 4.4 1.8-7.8 X 10^3 Lymphocytes # (Auto) 2.9 1.0-4.0 X 10^3 Monocytes # (Auto) 0.6 0.0-1.0 X 10^3 Eosinophils # (Auto) 0.1 0.0-0.3 10^3/uL Basophils # (Auto) 0.0 0.0-0.1 10^3/uL Sodium Level 142 135-145 MMOL/L Potassium Level 4.2 3.6-5.0 MMOL/L Chloride Level 108 H 98-107 MMOL/L Carbon Dioxide Level 22 21-32 MMOL/L Anion Gap 12 5-14 MMOL/L Blood Urea Nitrogen 10 7-18 MG/DL Creatinine 0.74 0.60-1.30 MG/DL Estimat Glomerular Filtration Rate > 60 BUN/Creatinine Ratio 14 Glucose Level 87 70-105 MG/DL Calcium Level 9.4 8.5-10.1 MG/DL Corrected Calcium 9.2 8.5-10.1 MG/DL Total Bilirubin 0.3 0.1-1.0 MG/DL Aspartate Amino Transf (AST/SGOT) 33 5-34 U/L Alanine Aminotransferase (ALT/SGPT) 36 0-55 U/L Alkaline Phosphatase 105 40-136 U/L Total Protein 6.9 6.4-8.2 GM/DL Albumin 4.2 3.2-4.5 GM/DL Salicylates Level < 5.0 L 5.0-20.0 MG/DL Acetaminophen Level < 10 L 10-30 UG/ML Serum Alcohol < 10 <10 MG/DL (NANCY PEREZ) Vital Signs/I&O 06/14/18 20:52 Temp 97.9 Pulse 94 Resp 20 B/P (MAP) 132/79 (96) Pulse Ox 99 O2 Delivery Room Air (NANCY PEREZ) Blood Pressure Mean: 96 Progress Progress Note : Time: 23:18 Progress Note Waiting to hear back from [facility] in [place] at this time for potential inpatient treatment, they do have bed availability. [facility] not [facility] bed availability at this time. Care is turned over to Dr. Perez at this time. (SUMMER SORENSEN) Progress Note : Time: 23:34 Progress Note Assume care of the patient at shift change from Summer Sorensen, nurse practitioner. This provider is familiar with the patient and agree with the examination and history as laid out above. [facility] [place], [place] are all full. [facility] says they have beds and has accepted our fax labs and history and are reviewing her case. 0200: Friday, RN called for up-to-date to [facility]. While there at provider capacity at this time they expect to have discharges in both have capacity available at 0700 this morning. The patient has been sleeping the entire time has been comfortable and has not had any difficulty so we are going to recent information that did not make it through the fax earlier and look for a 0700 acceptance. (NANCY PEREZ) Progress Note : Time: 07:49 Progress Note Seen and evaluated the patient. I did discuss with the patient regarding plan. She is actually saying now that she would really like to do outpatient follow- up and she was posterior follow-up today for changing her medicines. She denies current suicidal ideations and states that she would be safe at home, especially if we have a plan for outpatient care. We are still pending beds at [place] potentially although we are not sure if that will work out. In talking with the patient, she would really like to pursue just follow up with her counselor today. We will make contact with [facility] and see if we can set up a safe plan. We will go ahead and get her a meal now. 0811: Tolerated meal well. I did speak was sent via [facility]. She has spoken with her mental health team. She has a med psych appointment at 3 PM with [facility] and meds can be adjusted at that point. She will also make contact with the patient's silverware assembler to contact the patient throughout the day. I spoke with the patient and she is very comfortable with this plan and feels safe at home. She will also call her dependency case manager to let her know where she is and that she is safe and she will keep the appointment at 3 PM today. She is appreciative of the time here and feels much better. Discharged home with return precautions. Patient verbalize understanding instructions and agreement with plan. (NUNU LUJAN MD) Initial ECG Impression Date: Jun 14, 2018 Initial ECG Impression Time: 18:14 Initial ECG Rate: 69 Initial ECG Rhythm: Normal Sinus Initial ECG Intervals: Normal Initial ECG Impression: Normal Initial ECG Comparisson: No Previous ECG Available (SUMMER SORENSEN) Transfer of Care Time: 06:04 Care transferred to: Dr Lujan (NANCY PEREZ) Departure Impression Primary Impression: Depression Qualified Codes: F32.9 - Major depressive disorder, single episode, unspecified Additional Impression: Anxiety Disposition: 01 HOME, SELF-CARE Condition: Stable Departure-Patient Inst. Decision time for Depature: 08:13 (NUNU LUJAN MD) Referrals: [facility] [place] Primary Care Physician Patient Instructions: Anxiety, Adult (DC), Depression, Adult (DC), Suicide Prevention Add. Discharge Instructions: All discharge instructions reviewed with patient and/or family. Voiced understanding. You have appointment with [facility] at 3 PM today at the mental health office. Please keep that appointment. Call your dependency case manager this morning and let her know that you are safe and where you are at. Please return if you have any worsening of suicidal thoughts or plan. Continue home medicines as previously prescribed. Discussed with your counselor today about medication adjustment. Return for worse pain, fever, vomiting, suicidal thoughts or other concerns as needed. SUMMER SORENSEN Jun 14, 2018 21:36 NANCY PEREZ Jun 14, 2018 23:36 NUNU LUJAN MD Jun 15, 2018 07:51
[2018-06-14 21:48] LABS: ALANINE AMINOTRANSFERASE 36 U/L (0-55); ALBUMIN 4.2 GM/DL (3.2-4.5); ALKALINE PHOSPHATASE 105 U/L (40-136); BILIRUBIN,TOTAL 0.3 MG/DL (0.1-1.0); BUN/CREATININE RATIO 14; CALCIUM 9.4 MG/DL (8.5-10.1); CARBON DIOXIDE 22 MMOL/L (21-32); CHLORIDE 108 MMOL/L (98-107); CREATININE SERUM 0.74 MG/DL (0.60-1.30); GFR ESTIMATED > 60; GLUCOSE 87 MG/DL (70-105); POTASSIUM 4.2 MMOL/L (3.6-5.0); SODIUM 142 MMOL/L (135-145); TOTAL PROTEIN 6.9 GM/DL (6.4-8.2)
[2018-06-14 21:49] LABS: SALICYLATE < 5.0 MG/DL (5.0-20.0)
[2018-06-14 21:54] LABS: ACETAMINOPHEN < 10 UG/ML (10-30)
--- NOTE | 2018-06-15 00:45 | NUR ---
Patient resting quietly in room.
--- NOTE | 2018-06-15 02:25 | NUR ---
[facility] contacted about bed arrival. No avaliable beds at this time. The nurse stated to check back at shift change.
--- NOTE | 2018-06-15 06:18 | NUR ---
patient resting quietly in room.
[2018-06-15 08:02] VITALS: BP 114/71
--- NOTE | 2018-06-15 08:04 | NUR ---
meal tray to pt at this time
[2018-06-15 08:23] VITALS: BP 123/78
== END 2018-06-15 08:23 | disposition home or self-care (01) ==
LOC: EDUNIT# 20:44 → ER 20:46
DX: F32.9 Major depressive disorder, single episode, unspecified (principal); F41.9 Anxiety disorder, unspecified; G43.909 Migraine, unspecified, not intractable, without status migrainosus; E66.9 Obesity, unspecified; E03.9 Hypothyroidism, unspecified; F20.9 Schizophrenia, unspecified; Z87.440 Personal history of urinary (tract) infections; Z91.5 Personal history of self-harm; Z88.8 Allergy status to other drugs, medicaments and biological substances; Z68.42 Body mass index [BMI] 45.0-49.9, adult
CPT/HCPCS: 36415; 80053; 80306; 80320; 80329; 81000; 84703; 85025; 93005

== ENCOUNTER 2018-08-02 22:00 | Emergency (ER) | payer MEDICAID, OTHER ==
[~2018-08-02] VITALS: Ht 160 cm; Wt 124.7 kg
--- OUTSIDE RECORDS SUMMARY | 2018-08-02 22:06 | XMS REPORT | Clinical Summary ---
Author Author [facility] Organization [facility] Address Unknown Phone Unavailable Care Team Providers Care Propellant Assembler Name Role Phone Unassigned, None PP Unavailable [...] Taken Vital Sign Reading 03/26/2018 7:25 AM MATERIAL CHECKER Blood Pressure 119/62 03/26/2018 7:25 AM MATERIAL CHECKER Pulse 99 03/26/2018 7:24 AM MATERIAL CHECKER Temperature 36.2 C (97.2 F) 03/26/2018 7:24 AM MATERIAL CHECKER Respiratory Rate 17 03/26/2018 7:24 AM MATERIAL CHECKER Oxygen Saturation 99% - Inhaled Oxygen - Concentration 03/23/2018 4:33 PM MATERIAL CHECKER Weight 122.5 kg (270 lb) 03/23/2018 4:33 PM MATERIAL CHECKER Height 160 cm (5' 3") 03/23/2018 4:33 PM MATERIAL CHECKER Body Mass Index 47.83 Plan of Treatment Health Maintenance Due Date Last Done Comments Varicella Vaccines (1 of 2008 2 - 13+ 2-dose series) HPV Vaccines (1 - Female 2010 3-dose series) DTaP,Tdap,and Td Vaccines 2014 (1 - Tdap) MMR Vaccines-Adult 2014 CERVICAL CANCER SCREENING 2016 Influenza Vaccine Completed 01/25/2018 MenB Vaccine (Bexsero) Aged Out No longer eligible based on patient's age to complete this topic Results Not on filefrom Last 3 Months Insurance Type Payer Benefit Subscriber ID Effective Phone Address Plan / Dates Group MEDICAID [facility] xxxxxxxxxxx 2018- [phone] [place] [address] Advance Directives Patient has advance care planning documents, and code status on file. For more i nformation, please contact: [facility] [address] [address] Date Inactivated Comments Code Status Date Activated Full Code 03/26/2018 1:27 PM 03/26/2018 1:27 PM Full Code 03/23/2018 5:16 PM
[2018-08-02 22:21] LABS: BILIRUBIN,URINE NEGATIVE (NEGATIVE); CLARITY,URINE SL CLOUDY; COLOR,URINE YELLOW; GLUCOSE, URINE (UA) NEGATIVE (NEGATIVE); KETONES,URINE NEGATIVE (NEGATIVE); LEUKOCYTE ESTERASE ,URINE 1+ (NEGATIVE); NITRITE,URINE NEGATIVE (NEGATIVE); PH,URINE 7 (5-9); PROTEIN,URINE NEGATIVE (NEGATIVE); UROBILINOGEN,URINE 1 MG/DL (NORMAL)
[2018-08-02 22:23] LABS: BACTERIA,URINE FEW /HPF; RBC,URINE RARE /HPF; SQUAMOUS EPITHELIAL CELL,UR 25-50 /HPF; WBC,URINE RARE /HPF
[2018-08-02 22:25] LABS: AMPHETAMINE SCREEN, URINE NEGATIVE (NEGATIVE); BARBITURATE SCREEN URINE NEGATIVE (NEGATIVE); BENZODIAZEPINES SCREEN URINE POSITIVE (NEGATIVE); CANNABINOID SCREEN, URINE NEGATIVE (NEGATIVE); COCAINE SCREEN URINE NEGATIVE (NEGATIVE); METHADONE STAT NEGATIVE (NEGATIVE); METHAMPHETAMINE SCREEN URINE S NEGATIVE (NEGATIVE); OPIATE SCREEN URINE NEGATIVE (NEGATIVE); OXYCODONE STAT NEGATIVE (NEGATIVE); PROPOXYPHENE STAT NEGATIVE (NEGATIVE); TRICYCLIC ANTIDEPRESSANTS SCRE NEGATIVE (NEGATIVE)
--- NOTE | 2018-08-02 22:32 | ED Psychosocial ---
General Stated Complaint: SUICIDAL Source: patient Exam Limitations: no limitations History of Present Illness Date Seen by Provider: Aug 02, 2018 Time Seen by Provider: 22:13 Initial Comments The patient presents to ER by private conveyance with her car and chief complaint that she's been feeling suicidal for the past several days and while she has not actually attempted suicide she said she was sitting in her house all of her pills rate before her planning to take them. She says she doesn't want to but she doesn't want to go to inpatient psych hospital either. She does want to kill herself. She says that all of her pills around in the car that she drove here and if she were to leave here she would probably just go out and take them off. She has a history of cutting and within the last few weeks she did put one small cut on her left anterior wrist. She has not had any cutting on her thighs her abdomen. She said she was speaking to her therapist at [facility] and last week and was told that time that she might and if it from going to [facility]. Allergies and Home Medications Allergies Coded Allergies: haloperidol (Verified Allergy, Mild, 12/16/14) Home Medications Divalproex Sodium 500 Mg Tab.er.24h, 1,000 MG PO HS, (Reported) TAKES 2 (500MG) TABLETS Fluoxetine HCl 20 Mg Capsule, 20 MG PO HS, (Reported) Levothyroxine Sodium 25 Mcg Tablet, 25 MCG PO DAILY, (Reported) Patient Home Medication List Home Medication List Reviewed: Yes Review of Systems Constitutional: No chills, No diaphoresis EENTM: No ear discharge Respiratory: No cough, No short of breath Cardiovascular: No chest pain, No edema Gastrointestinal: No abdominal pain, No constipation, No diarrhea; nausea; No vomiting Genitourinary: No discharge, No dysuria : No Control/STD Prophylaxis: None Past Ubehufj-Txnjrj-Ceynvl Hx Patient Social History Drug of Choice: HX OF THC Type Used: Cigarettes 2nd Hand Smoke Exposure: No Recent Foreign Travel: No Contact w/Someone Who Travel: No Recent Hopitalizations: No Immunizations Up To Date Tetanus Booster (TDap): Unknown Date of Influenza Vaccine: Jan 01, 2018 Seasonal Allergies Seasonal Allergies: No Past Medical History Surgeries: No Respiratory: No Cardiac: No Neurological: Yes Headaches /Migraines Reproductive Disorders: No Female Reproductive Disorders: Denies Genitourinary: Yes UTI-Chronic Gastrointestinal: No Musculoskeletal: No Endocrine: Yes (OBESITY) Hypothyroidsim HEENT: No Cancer: No Psychosocial: Yes Anxiety, Suicide Attempts, Bipolar, Schizophrenia, Depression Integumentary: No Blood Disorders: No Family Medical History Asthma 19 MOTHER No Pertinent Family Hx Physical Exam Vital Signs - First Documented 08/02/18 22:08 Temp 97.8 Pulse 78 Resp 18 B/P (MAP) 122/73 (89) Pulse Ox 99 O2 Delivery Room Air Capillary Refill : Height, Weight, BMI Height: 5'3.00" Weight: 275lbs. 5.0oz. 124.422278yi; 47.9 BMI Method:Stated General Appearance: WD/WN, no apparent distress HEENT: normal ENT inspection, pharynx normal Neck: full range of motion, normal inspection Respiratory: normal breath sounds, no respiratory distress, no accessory muscle use Cardiovascular: normal peripheral pulses, regular rate, rhythm Peripheral Pulses: 2+ Radial Pulses (R), 2+ Radial Pulses (L) Gastrointestinal: normal bowel sounds, non tender, soft Neurologic/Psychiatric: alert, normal mood/affect, oriented x 3 Appearance/Memory: appropriate appearance, appropriate insight, neat, no memory impairment Behavior/Eye Contact: cooperative, good eye contact Progress/Results/Core Measures Results/Orders Lab Results Laboratory Tests Test 08/02/18 22:08 08/02/18 22:30 Range/Units Urine Color YELLOW Urine Clarity SL CLOUDY Urine pH 7 5-9 Urine Specific [place] 1.010 L 1.016-1.022 Urine Protein NEGATIVE NEGATIVE Urine Glucose (UA) NEGATIVE NEGATIVE Urine Ketones NEGATIVE NEGATIVE Urine Nitrite NEGATIVE NEGATIVE Urine Bilirubin NEGATIVE NEGATIVE Urine Urobilinogen 1 NORMAL MG/DL Urine Leukocyte Esterase 1+ H NEGATIVE Urine RBC (Auto) 2+ H NEGATIVE Urine RBC RARE /HPF Urine WBC RARE /HPF Urine Squamous Epithelial Cells 25-50 H /HPF Urine Crystals NONE /LPF Urine Bacteria FEW H /HPF Urine Casts NONE /LPF Urine Mucus NEGATIVE /LPF Urine Culture Indicated NO Urine Test NEGATIVE NEGATIVE Urine Opiates Screen NEGATIVE NEGATIVE Urine Oxycodone Screen NEGATIVE NEGATIVE Urine Methadone Screen NEGATIVE NEGATIVE Urine Propoxyphene Screen NEGATIVE NEGATIVE Urine Barbiturates Screen NEGATIVE NEGATIVE Ur Tricyclic Antidepressants Screen NEGATIVE NEGATIVE Urine Phencyclidine Screen NEGATIVE NEGATIVE Urine Amphetamines Screen NEGATIVE NEGATIVE Urine Methamphetamines Screen NEGATIVE NEGATIVE Urine Benzodiazepines Screen POSITIVE H NEGATIVE Urine Cocaine Screen NEGATIVE NEGATIVE Urine Cannabinoids Screen NEGATIVE NEGATIVE White Blood Count 7.7 4.3-11.0 10^3/uL Red Blood Count 4.87 4.35-5.85 10^6/uL Hemoglobin 12.3 11.5-16.0 G/DL Hematocrit 38 35-52 % Mean Corpuscular Volume 78 L 80-99 FL Mean Corpuscular Hemoglobin 25 25-34 PG Mean Corpuscular Hemoglobin Concent 32 32-36 G/DL Red Cell Distribution Width 15.8 H 10.0-14.5 % Platelet Count 281 130-400 10^3/uL Mean Platelet Volume 10.8 H 7.4-10.4 FL Neutrophils (%) (Auto) 51 42-75 % Lymphocytes (%) (Auto) 37 12-44 % Monocytes (%) (Auto) 10 0-12 % Eosinophils (%) (Auto) 1 0-10 % Basophils (%) (Auto) 0 0-10 % Neutrophils # (Auto) 3.9 1.8-7.8 X 10^3 Lymphocytes # (Auto) 2.8 1.0-4.0 X 10^3 Monocytes # (Auto) 0.8 0.0-1.0 X 10^3 Eosinophils # (Auto) 0.1 0.0-0.3 10^3/uL Basophils # (Auto) 0.0 0.0-0.1 10^3/uL Sodium Level 139 135-145 MMOL/L Potassium Level 3.6 3.6-5.0 MMOL/L Chloride Level 107 98-107 MMOL/L Carbon Dioxide Level 21 21-32 MMOL/L Anion Gap 11 5-14 MMOL/L Blood Urea Nitrogen 10 7-18 MG/DL Creatinine 0.76 0.60-1.30 MG/DL Estimat Glomerular Filtration Rate > 60 BUN/Creatinine Ratio 13 Glucose Level 84 70-105 MG/DL Calcium Level 9.5 8.5-10.1 MG/DL Corrected Calcium 9.5 8.5-10.1 MG/DL Total Bilirubin 0.3 0.1-1.0 MG/DL Aspartate Amino Transf (AST/SGOT) 28 5-34 U/L Alanine Aminotransferase (ALT/SGPT) 41 0-55 U/L Alkaline Phosphatase 105 40-136 U/L Total Protein 6.5 6.4-8.2 GM/DL Albumin 4.0 3.2-4.5 GM/DL Salicylates Level < 5.0 L 5.0-20.0 MG/DL Acetaminophen Level < 10 L 10-30 UG/ML Serum Alcohol < 10 <10 MG/DL My Orders Orders - NANCY FLORES Ua Culture If Indicated (08/02/18 22:09) Cbc With Automated Diff (08/02/18 22:) Comprehensive Metabolic Panel (08/02/18 22:) Alcohol (08/02/18 22:) Drug Screen Stat (Urine) (08/02/18 22:09) Acetaminophen (08/02/18 22:09) Salicylate (08/02/18 22:) Ekg Tracing (08/02/18:) Bh Status Checks/Observation Q15M (08/02/18 22:09) Hcg,Qualitative Urine (08/02/18 22:33) Vital Signs/I&O 08/02/18 22:08 Temp 97.8 Pulse 78 Resp 18 B/P (MAP) 122/73 (89) Pulse Ox 99 O2 Delivery Room Air Progress Progress Note #1: Time: 23:37 Progress Note First patient said that she be willing to go to [place] so we called left a message at [facility] and have left a message at [place]. We talked to the [employer]SNs line Ketty and then the patient recanted her story and says she was suicidal but she is no longer and she would prefer to do a workup outpatient. She says her grandmother might come pick her up so we called her grandmother and she said that she will come and pick the patient up and walked over her tonight. We'll have her sign a suicide contract and discussed the case with Ketty and she said that she will have the save line contact the patient in the morning to get outpatient follow-up set up. Progress Note #2: Time: 00:01 Progress Note The aunt and has arrived and she will transport the patient back to [facility] has instructed on the phone with the nurse area and she says that she will watch patient tonight. Initial ECG Impression Date: Aug 02, 2018 Initial ECG Impression Time: 22:16 Initial ECG Rate: 66 Initial ECG Rhythm: Normal Sinus Initial ECG Intervals: Normal Initial ECG Impression: Normal Initial ECG Comparisson: Unchanged Comment No ST elevation or depression. Departure Impression Primary Impression: Passive suicidal ideations Disposition: 01 HOME, SELF-CARE Condition: Stable Departure-Patient Inst. Decision time for Depature: 23:42 Referrals: [facility] (PCP/Family) Primary Care Physician Patient Instructions: Suicide Prevention Add. Discharge Instructions: Expect a phone call from [employer] line in the morning. You can call them yourself at [phone] if you need to or return to the nearest ER for evaluation for help. NANCY FLORES Aug 02, 2018 22:32
[2018-08-02 22:42] LABS: BASOPHILS % (AUTO) 0 % (0-10); EOSINOPHILS # (AUTO) 0.1 10^3/uL (0.0-0.3); EOSINOPHILS % (AUTO) 1 % (0-10); HEMATOCRIT 38 % (35-52); HEMOGLOBIN 12.3 G/DL (11.5-16.0); LYMPHOCYTES # (AUTO) 2.8 X 10^3 (1.0-4.0); LYMPHOCYTES % (AUTO) 37 % (12-44); MEAN CORPUSCULAR HEMOGLOBIN 25 PG (25-34); MEAN CORPUSCULAR HGB CONC 32 G/DL (32-36); MEAN CORPUSCULAR VOLUME 78 FL (80-99); MEAN PLATELET VOLUME 10.8 FL (7.4-10.4); MONOCYTES # (AUTO) 0.8 X 10^3 (0.0-1.0); MONOCYTES % (AUTO) 10 % (0-12); NEUTROPHILS # (AUTO) 3.9 X 10^3 (1.8-7.8); NEUTROPHILS % (AUTO) 51 % (42-75); PLATELET COUNT 281 10^3/uL (130-400); RED CELL DISTRIBUTION WIDTH 15.8 % (10.0-14.5); WHITE BLOOD COUNT 7.7 10^3/uL (4.3-11.0)
[2018-08-02 22:59] LABS: ALANINE AMINOTRANSFERASE 41 U/L (0-55); ALKALINE PHOSPHATASE 105 U/L (40-136); BILIRUBIN,TOTAL 0.3 MG/DL (0.1-1.0); BUN/CREATININE RATIO 13; CALCIUM 9.5 MG/DL (8.5-10.1); CARBON DIOXIDE 21 MMOL/L (21-32); CHLORIDE 107 MMOL/L (98-107); CREATININE SERUM 0.76 MG/DL (0.60-1.30); GFR ESTIMATED > 60; GLUCOSE 84 MG/DL (70-105); POTASSIUM 3.6 MMOL/L (3.6-5.0); SALICYLATE < 5.0 MG/DL (5.0-20.0); SODIUM 139 MMOL/L (135-145); TOTAL PROTEIN 6.5 GM/DL (6.4-8.2)
[2018-08-02 23:06] LABS: ACETAMINOPHEN < 10 UG/ML (10-30)
--- NOTE | 2018-08-02 23:24 | NUR ---
Pt's grandmother, Yaneli, contacted at this time to come get pt. Grandmother states she is on her way.
--- NOTE | 2018-08-03 00:01 | NUR ---
Pt's Aunt here to pickle maker pt and take her to her grandmother's house. Pt's grandmother, Yaneli, has agreed to take responsibility of pt nuvia.
[2018-08-03 00:08] VITALS: BP 122/73
== END 2018-08-03 00:06 | disposition home or self-care (01) ==
LOC: EDUNIT# 22:00 → ER 22:02
DX: R45.851 Suicidal ideations (principal); G43.909 Migraine, unspecified, not intractable, without status migrainosus; E66.9 Obesity, unspecified; E03.9 Hypothyroidism, unspecified; F41.9 Anxiety disorder, unspecified; F31.9 Bipolar disorder, unspecified; F20.9 Schizophrenia, unspecified; Z91.5 Personal history of self-harm; Z87.440 Personal history of urinary (tract) infections; Z88.8 Allergy status to other drugs, medicaments and biological substances
CPT/HCPCS: 36415; 80053; 80306; 80320; 80329; 81000; 84703; 85025; 93005

== ENCOUNTER 2018-08-31 23:43 | Emergency (ER) | payer MEDICAID, OTHER ==
[~2018-08-31] VITALS: Ht 160 cm; Wt 124.9 kg
--- NOTE | 2018-09-01 00:11 | ED Psychosocial ---
General Chief Complaint: Suicidal Ideation Risk Stated Complaint: SUICIDAL Source: patient, old records History of Present Illness Date Seen by Provider: Aug 31, 2018 Time Seen by Provider: 23:55 Initial Comments PT ARRIVES VIA POV FROM HOME PT STATES SHE IS SUICIDAL STATES "IT'S NOT JUST CHRONIC-I'VE HAD A TRIGGER" STATES "I ASKED SOMEONE TO ME AND THEY SAID NO AND I JUST DON'T WANT TO LIVE"--OCCURRED "LESS THAN AN HOUR AGO" PT STATES SHE HAS NOT MADE ANY ATTEMPT, BUT HER PLANS WOULD BE: "TAKING ALL MY MEDS OR MAYBE CUTTING OR MAYBE GETTING A KNIFE AND STABBING MYSELF A FEW TIMES, AND TOMORROW IF I'M NOT I THINK I'LL TRY DRIVING MY CAR IN FRONT OF A TRAIN OR SOMETHING OR MAYBE STANDING IN FRONT OF A TRAIN" "I'LL JUST KEEP TRYING TO THINK OF WAYS TO KILL MYSELF UNTIL IT HAPPENS" PT HAS RELATED THESE EXACT SAME "THOUGHTS" ON MULTIPLE PREVIOUS ER VISITS PT HAS BEEN OUT OF HER MEDICATIONS--NO MEDICATIONS TODAY, BUT TOOK THEM ALL YESTERDAY GIVES NO REASON TO WHY SHE DID NOT GET HER MEDICATIONS FILLED PT WITH A MULTITUDE OF VISITS HERE FOR SAME HAS HAD 7 VISITS IN 2019--ALL FOR SAME PT HAS HAD 23 VISITS SINCE 2014--ALL FOR PSYCH RELATED ISSUES LAST VISIT HERE WAS 08/02/18 FOR SAME -- SENT HOME WITH OUTPATIENT FOLLOW UP PT HAS HAD MULTIPLE PSYCH ADMITS IN THE PAST PT HAS ONLY ACTUALLY MADE ONE ACTUAL ATTEMPT--WAS AN OVERDOSE ON LITHIUM, AND WAS 12/2016 PT WITH LONG HISTORY ON EXTREME NON-COMPLIANCE IN ALL ASPECTS OF CARE. PCP: [facility], BUT PT "NEVER GOES THERE" PSYCH: [facility] Allergies and Home Medications Allergies Coded Allergies: haloperidol (Verified Allergy, Mild, 12/16/14) Home Medications Divalproex Sodium 500 Mg Tab.er.24h, 1,000 MG PO HS, (Reported) TAKES 2 (500MG) TABLETS Fluoxetine HCl 20 Mg Capsule, 20 MG PO HS, (Reported) Levothyroxine Sodium 25 Mcg Tablet, 25 MCG PO DAILY, (Reported) Patient Home Medication List Home Medication List Reviewed: Yes Review of Systems Constitutional: no symptoms reported Respiratory: no symptoms reported Cardiovascular: no symptoms reported Gastrointestinal: no symptoms reported Genitourinary: no symptoms reported : No (LMP> 3 YEARS AGO) Control/STD Prophylaxis: None Musculoskeletal: no symptoms reported Skin: no symptoms reported Psychiatric/Neurological: See HPI, Depressed Past Hodefjo-Tqfhkd-Agtbdq Hx Patient Social History Drug of Choice: HX OF THC Type Used: Cigarettes 2nd Hand Smoke Exposure: No Recent Foreign Travel: No Contact w/Someone Who Travel: No Recent Hopitalizations: No Immunizations Up To Date Tetanus Booster (TDap): Unknown Date of Influenza Vaccine: Jan 01, 2018 Seasonal Allergies Seasonal Allergies: No Past Medical History Surgeries: No Respiratory: No Cardiac: No Neurological: Yes Headaches /Migraines Reproductive Disorders: No Female Reproductive Disorders: Menstrual Problems (STATES NO PERIOD FOR 3 YEARS--NOT ON CONTROL) Genitourinary: Yes UTI-Chronic Gastrointestinal: No Musculoskeletal: No Endocrine: Yes (OBESITY) Hypothyroidsim HEENT: No Cancer: No Psychosocial: Yes ( EXTENSIVE HX OF SUICIDAL IDEATIONS, BUT ONLY 1 ACTUAL ATTEMPT--OD'D ON LITHIUM 12/2016; MULTIPLE PSYCH ADMITS--15 ADMITS TO [facility] ALONE SINCE 2014, WELL OTHER FACILITIES. ) Anxiety, Suicide Attempts, Bipolar, Schizophrenia, Depression Integumentary: No Blood Disorders: No Family Medical History Asthma 19 MOTHER No Pertinent Family Hx Physical Exam Vital Signs - First Documented 08/31/18 23:50 Temp 97.9 Pulse 89 Resp 20 B/P (MAP) 141/85 (103) Pulse Ox 98 Capillary Refill : Height, Weight, BMI Height: 5'3.00" Weight: 275lbs. 5.0oz. 124.997059me; 47.9 BMI Method:Stated General Appearance: no apparent distress, obese, other (PT VERY NON-CHALANT, LAYING OUTSTRETCHED, ARMS BEHIND HEAD. DOES NOT APPEAR TO BE UPSET OR IN ANY DISTRESS WHATSOEVER. 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 as tested, no motor/sensory deficits, alert, normal mood/affect, oriented x 3 Appearance/Memory: no memory impairment Behavior/Eye Contact: cooperative, good eye contact, normal speech Thoughts/Hallucinations: no apparent hallucination Skin: normal color, warm/dry, other (NO EXTERNAL EVIDENCE OF TRAUMA) Progress/Results/Core Measures Results/Orders Lab Results Laboratory Tests Test 09/01/18 00:05 09/01/18 00:10 Range/Units Urine Color YELLOW Urine Clarity CLEAR Urine pH 6 5-9 Urine Specific [place] 1.025 H 1.016-1.022 Urine Protein 1+ H NEGATIVE Urine Glucose (UA) NEGATIVE NEGATIVE Urine Ketones 1+ H NEGATIVE Urine Nitrite NEGATIVE NEGATIVE Urine Bilirubin NEGATIVE NEGATIVE Urine Urobilinogen 4 H NORMAL MG/DL Urine Leukocyte Esterase 1+ H NEGATIVE Urine RBC (Auto) 1+ H NEGATIVE Urine RBC 0-2 /HPF Urine WBC RARE /HPF Urine Squamous Epithelial Cells 10-25 H /HPF Urine Crystals NONE /LPF Urine Bacteria TRACE /HPF Urine Casts NONE /LPF Urine Mucus MODERATE H /LPF Urine Culture Indicated NO Urine Opiates Screen NEGATIVE NEGATIVE Urine Oxycodone Screen NEGATIVE NEGATIVE Urine Methadone Screen NEGATIVE NEGATIVE Urine Propoxyphene Screen NEGATIVE NEGATIVE Urine Barbiturates Screen NEGATIVE NEGATIVE Ur Tricyclic Antidepressants Screen NEGATIVE NEGATIVE Urine Phencyclidine Screen NEGATIVE NEGATIVE Urine Amphetamines Screen NEGATIVE NEGATIVE Urine Methamphetamines Screen NEGATIVE NEGATIVE Urine Benzodiazepines Screen POSITIVE H NEGATIVE Urine Cocaine Screen NEGATIVE NEGATIVE Urine Cannabinoids Screen NEGATIVE NEGATIVE White Blood Count 8.4 4.3-11.0 10^3/uL Red Blood Count 4.90 4.35-5.85 10^6/uL Hemoglobin 12.6 11.5-16.0 G/DL Hematocrit 39 35-52 % Mean Corpuscular Volume 80 80-99 FL Mean Corpuscular Hemoglobin 26 25-34 PG Mean Corpuscular Hemoglobin Concent 32 32-36 G/DL Red Cell Distribution Width 16.0 H 10.0-14.5 % Platelet Count 316 130-400 10^3/uL Mean Platelet Volume 9.9 7.4-10.4 FL Neutrophils (%) (Auto) 56 42-75 % Lymphocytes (%) (Auto) 30 12-44 % Monocytes (%) (Auto) 11 0-12 % Eosinophils (%) (Auto) 3 0-10 % Basophils (%) (Auto) 0 0-10 % Neutrophils # (Auto) 4.7 1.8-7.8 X 10^3 Lymphocytes # (Auto) 2.5 1.0-4.0 X 10^3 Monocytes # (Auto) 0.9 0.0-1.0 X 10^3 Eosinophils # (Auto) 0.2 0.0-0.3 10^3/uL Basophils # (Auto) 0.0 0.0-0.1 10^3/uL Sodium Level 141 135-145 MMOL/L Potassium Level 3.9 3.6-5.0 MMOL/L Chloride Level 105 98-107 MMOL/L Carbon Dioxide Level 23 21-32 MMOL/L Anion Gap 13 5-14 MMOL/L Blood Urea Nitrogen 10 7-18 MG/DL Creatinine 0.81 0.60-1.30 MG/DL Estimat Glomerular Filtration Rate > 60 BUN/Creatinine Ratio 12 Glucose Level 82 70-105 MG/DL Calcium Level 9.3 8.5-10.1 MG/DL Corrected Calcium 9.2 8.5-10.1 MG/DL Total Bilirubin 0.4 0.1-1.0 MG/DL Aspartate Amino Transf (AST/SGOT) 33 5-34 U/L Alanine Aminotransferase (ALT/SGPT) 52 0-55 U/L Alkaline Phosphatase 97 40-136 U/L Total Protein 6.9 6.4-8.2 GM/DL Albumin 4.1 3.2-4.5 GM/DL TSH [place] Testing 2.63 0.35-4.94 UIU/ML Serum Test, Qualitative NEGATIVE NEGATIVE Salicylates Level < 5.0 L 5.0-20.0 MG/DL Acetaminophen Level < 10 L 10-30 UG/ML Valproic Acid (Depakene) Level 23.1 L 50.0-100.0 UG/ML Serum Alcohol < 10 <10 MG/DL My Orders Orders - DAVID DUNBAR DO Urinalysis (08/31/18 23:52) Thyroid Analyzer (08/31/18 23:52) Drug Screen Stat (Urine) (08/31/18 23:52) Cbc With Automated Diff (08/31/18 23:52) Comprehensive Metabolic Panel (08/31/18 23:52) Alcohol (08/31/18 23:52) Acetaminophen (08/31/18 23:52) Salicylate (08/31/18 23:52) Ekg Tracing (08/31/18 23:52) Hcg,Qualitative Serum (08/31/18 23:52) Valproic Acid (09/01/18 01:42) Vital Signs/I&O 08/31/18 23:50 Temp 97.9 Pulse 89 Resp 20 B/P (MAP) 141/85 (103) Pulse Ox 98 Progress Progress Note : Progress Note SLEPT AND RESTED QUIETLY FOR MOST OF ER STAY PT UPDATED HOURLY ON PROCESS 0510--PT BEGINNING TO BECOME AGITATED, WANTING PILLS TO MAKE HER GO TO SLEEP--ADVISED HER THAT I WOULD NOT BE GIVING HER ANYTHING MEDICATION FOR SLEEP. PT MANIPULATIVE--STATING "IF I START ACTING OUT THEN YOU'RE GOING TO HAVE TO GIVE ME SOMETHING"--ADVISED HER THAT I WOULD CALL THE POLICE AND SHE WOULD NOT BE MEDICATED. PT THEN LAID BACK DOWN AND RESTED FOR REMAINDER OF ER STAY Initial ECG Impression Date: Aug 31, 2018 Initial ECG Impression Time: 23:59 Initial ECG Rate: 74 Initial ECG Rhythm: Normal Sinus Initial ECG Comparisson: Unchanged Departure Communication (Admissions) 0125--[facility]--[facility] CALLED BACK, HAVE FEMALE BED, WILL HAVE INTAKE STAFF MEMBER CALL BACK ( SHE IS CURRENTLY SCREENING ANOTHER PT) . PT'S INFORMATION FAXED TO THEM 0332--SPOKE WITH KEL MELARA AT [facility]--SHE DID NOT RECEIVE ALL OF PT'S INFORMATION--RE-FAXING INFORMATION NOW. SHE WILL CALL BACK. SHE REPORTS THAT THEY HAVE A BED AND ARE VERY FAMILIAR WITH THE PT, SHE HAS BEEN ADMITTED TO THEIR U 15 TIMES SINCE 2014 0524--SPOKE WITH [facility] HAVE BED, PAGING HAT TRIMMER 0529--SPOKE WITH DR. WRIGHT, ACCEPTS PT FOR ADMIT. Impression Primary Impression: Passive suicidal ideations Disposition: 65 XFER TO PSYCH HOSP/UNIT Condition: Stable Transfer Transfer Facility: [facility] Method of Transfer: [facility] Departure-Patient Inst. Referrals: [facility] (PCP/Family) Primary Care Physician DAVID DUNBAR DO Sep 01, 2018 00:11
[2018-09-01 00:24] LABS: BACTERIA,URINE TRACE /HPF; BILIRUBIN,URINE NEGATIVE (NEGATIVE); CLARITY,URINE CLEAR; COLOR,URINE YELLOW; GLUCOSE, URINE (UA) NEGATIVE (NEGATIVE); KETONES,URINE 1+ (NEGATIVE); LEUKOCYTE ESTERASE ,URINE 1+ (NEGATIVE); NITRITE,URINE NEGATIVE (NEGATIVE); PH,URINE 6 (5-9); PROTEIN,URINE 1+ (NEGATIVE); RBC,URINE 0-2 /HPF; UROBILINOGEN,URINE 4 MG/DL (NORMAL); WBC,URINE RARE /HPF
[2018-09-01 00:26] LABS: AMPHETAMINE SCREEN, URINE NEGATIVE (NEGATIVE); BARBITURATE SCREEN URINE NEGATIVE (NEGATIVE); BENZODIAZEPINES SCREEN URINE POSITIVE (NEGATIVE); CANNABINOID SCREEN, URINE NEGATIVE (NEGATIVE); COCAINE SCREEN URINE NEGATIVE (NEGATIVE); METHADONE STAT NEGATIVE (NEGATIVE); METHAMPHETAMINE SCREEN URINE S NEGATIVE (NEGATIVE); OPIATE SCREEN URINE NEGATIVE (NEGATIVE); OXYCODONE STAT NEGATIVE (NEGATIVE); PROPOXYPHENE STAT NEGATIVE (NEGATIVE); TRICYCLIC ANTIDEPRESSANTS SCRE NEGATIVE (NEGATIVE)
[2018-09-01 00:33] LABS: BASOPHILS % (AUTO) 0 % (0-10); EOSINOPHILS # (AUTO) 0.2 10^3/uL (0.0-0.3); EOSINOPHILS % (AUTO) 3 % (0-10); HEMATOCRIT 39 % (35-52); HEMOGLOBIN 12.6 G/DL (11.5-16.0); LYMPHOCYTES # (AUTO) 2.5 X 10^3 (1.0-4.0); LYMPHOCYTES % (AUTO) 30 % (12-44); MEAN CORPUSCULAR HEMOGLOBIN 26 PG (25-34); MEAN CORPUSCULAR HGB CONC 32 G/DL (32-36); MEAN CORPUSCULAR VOLUME 80 FL (80-99); MEAN PLATELET VOLUME 9.9 FL (7.4-10.4); MONOCYTES # (AUTO) 0.9 X 10^3 (0.0-1.0); MONOCYTES % (AUTO) 11 % (0-12); NEUTROPHILS # (AUTO) 4.7 X 10^3 (1.8-7.8); NEUTROPHILS % (AUTO) 56 % (42-75); PLATELET COUNT 316 10^3/uL (130-400); WHITE BLOOD COUNT 8.4 10^3/uL (4.3-11.0)
[2018-09-01 01:03] LABS: ALANINE AMINOTRANSFERASE 52 U/L (0-55); ALBUMIN 4.1 GM/DL (3.2-4.5); ALKALINE PHOSPHATASE 97 U/L (40-136); BILIRUBIN,TOTAL 0.4 MG/DL (0.1-1.0); BUN/CREATININE RATIO 12; CALCIUM 9.3 MG/DL (8.5-10.1); CARBON DIOXIDE 23 MMOL/L (21-32); CHLORIDE 105 MMOL/L (98-107); CREATININE SERUM 0.81 MG/DL (0.60-1.30); GFR ESTIMATED > 60; GLUCOSE 82 MG/DL (70-105); POTASSIUM 3.9 MMOL/L (3.6-5.0); SALICYLATE < 5.0 MG/DL (5.0-20.0); SODIUM 141 MMOL/L (135-145); TOTAL PROTEIN 6.9 GM/DL (6.4-8.2)
[2018-09-01 01:23] LABS: TSH (THYROID ANALYZER) 2.63 UIU/ML (0.35-4.94)
[2018-09-01 01:25] LABS: ACETAMINOPHEN < 10 UG/ML (10-30)
--- NOTE | 2018-09-01 05:15 | NUR ---
upon entering patient becoming agitated because she states she is "tired of waiting, I want meds to knock me out because my sleeping schedule is messed up". Provider present and speaking with patient.
--- NOTE | 2018-09-01 05:30 | NUR ---
call made to Christianne Deleon for transport to [facility] room 8005.
--- OUTSIDE RECORDS SUMMARY | 2018-09-01 06:20 | XMS REPORT | Clinical Summary ---
Author Author [facility] Organization [facility] Address Unknown Phone Unavailable Care Team Providers Care Neonatal Nurse Name Role Phone Unassigned, None PP Unavailable [...] Used Current Some Day Smoker Cigarettes 0.25 Drinks/Week oz/Week Comments Alcohol Use Not Currently Sex Assigned at Date Recorded Not on file Industry Job Start Date Occupation Not on file Not on file Not on file Travel End Travel History Travel Start No recent travel history available. 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 Blood Pressure 99 03/26/2018 7:25 AM INJECTION MACHINE OPERATOR Pulse 36.2 C (97.2 F) 03/26/2018 7:24 AM INJECTION MACHINE OPERATOR Temperature 17 03/26/2018 7:24 AM INJECTION MACHINE OPERATOR Respiratory Rate 99% 03/26/2018 7:24 AM INJECTION MACHINE OPERATOR Oxygen Saturation - - Inhaled Oxygen Concentration 122.5 kg (270 lb) 03/23/2018 4:33 PM INJECTION MACHINE OPERATOR Weight 160 cm (5' 3") 03/23/2018 4:33 PM INJECTION MACHINE OPERATOR Height 47.83 03/23/2018 4:33 PM INJECTION MACHINE OPERATOR Body Mass Index Plan of Treatment Health Maintenance Due Date Last Done Comments Pneumo-Vaccine: Peds (0-5 2001 Yrs) & At-Risk Patients (6-64 Yrs) (1 of 1 - PPSV23) Varicella Vaccines (1 of 2008 2 - 13+ 2-dose series) HPV Vaccines (1 - Female 2010 3-dose series) DTaP,Tdap,and Td Vaccines 2014 (1 - Tdap) MMR Vaccines-Adult 2014 CERVICAL CANCER SCREENING 2016 Influenza Vaccine (#1) 2018 01/25/2018 Pneumo-Vaccine: 65+Yrs (1 2060 of 2 - PCV13) MenB Vaccine (Bexsero) Aged Out No longer eligible based on patient's age to complete this topic Results Not on filefrom Last 3 Months Insurance Type Payer Benefit Subscriber ID Effective Phone Address Plan / Dates Group MEDICAID [facility] xxxxxxxxxxx 2018- [phone] [id number] Office [place] [address] Advance Directives 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
[2018-09-01 06:28] VITALS: BP 141/87
== END 2018-09-01 06:28 ==
LOC: EDUNIT# 23:43 → ER 23:45
DX: R45.851 Suicidal ideations (principal); G43.909 Migraine, unspecified, not intractable, without status migrainosus; E66.9 Obesity, unspecified; E03.9 Hypothyroidism, unspecified; F31.9 Bipolar disorder, unspecified; F20.9 Schizophrenia, unspecified; F41.9 Anxiety disorder, unspecified; Z87.440 Personal history of urinary (tract) infections; Z88.8 Allergy status to other drugs, medicaments and biological substances
CPT/HCPCS: 36415; 80053; 80164; 80306; 80320; 80329; 81000; 84443; 84703; 85025; 93005

== ENCOUNTER 2018-09-22 15:59 | Emergency (ER) | payer OTHER ==
[~2018-09-22] VITALS: Ht 160 cm; Wt 124.9 kg
--- NOTE | 2018-09-22 16:08 | ED General ---
General Stated Complaint: SUICIDAL IDEATIONS Source of Information: Patient Exam Limitations: No Limitations History of Present Illness Date Seen by Provider: Sep 22, 2018 Time Seen by Provider: 16:07 Initial Comments To Er by POBernardo with c/o suicidal thoughts. States she took 20 depakote 3 days ago as suicide attempt. wasnt seen at that time, states shes more suicidal today. She's been here 14 times for suicidal ideation. She states that she is suicidal every day, but more so she would like to go inpatient at [facility]. Timing/Duration: 1-2 Days Severity: Moderate Associated Systoms: Denies Symptoms Allergies and Home Medications Allergies Coded Allergies: haloperidol (Verified Allergy, Mild, 12/16/14) Home Medications Divalproex Sodium 500 Mg Tab.er.24h, 1,000 MG PO HS, (Reported) TAKES 2 (500MG) TABLETS Fluoxetine HCl 20 Mg Capsule, 20 MG PO HS, (Reported) Levothyroxine Sodium 25 Mcg Tablet, 25 MCG PO DAILY, (Reported) Patient Home Medication List Home Medication List Reviewed: Yes Review of Systems Review of Systems Constitutional: see HPI EENTM: see HPI Respiratory: no symptoms reported Cardiovascular: no symptoms reported Genitourinary: no symptoms reported Musculoskeletal: no symptoms reported Skin: no symptoms reported Psychiatric/Neurological: See HPI Hematologic/Lymphatic: No Symptoms Reported Past Wuxudqi-Uhssrm-Mdixsu Hx Patient Social History Drug of Choice: HX OF THC Type Used: Cigarettes 2nd Hand Smoke Exposure: No Recent Foreign Travel: No Contact w/Someone Who Travel: No Recent Hopitalizations: No Immunizations Up To Date Tetanus Booster (TDap): Unknown Date of Influenza Vaccine: Jan 01, 2018 Seasonal Allergies Seasonal Allergies: No Past Medical History Surgeries: No Respiratory: No Cardiac: No Neurological: Yes Headaches /Migraines Reproductive Disorders: No Female Reproductive Disorders: Menstrual Problems Genitourinary: Yes UTI-Chronic Gastrointestinal: No Musculoskeletal: No Endocrine: Yes (OBESITY) Hypothyroidsim HEENT: No Cancer: No Psychosocial: Yes Anxiety, Suicide Attempts, Bipolar, Schizophrenia, Depression Integumentary: No Blood Disorders: No Family Medical History Asthma 19 MOTHER No Pertinent Family Hx Physical Exam Vital Signs Vital Signs - First Documented 09/22/18 16:10 Temp 97.6 Pulse 105 Resp 18 B/P (MAP) 116/58 (77) Pulse Ox 99 O2 Delivery Room Air Capillary Refill : Height, Weight, BMI Height: 5'3.00" Weight: 275lbs. 5.0oz. [id number]; 47.9 BMI Method:Stated General Appearance: No Apparent Distress, WD/WN Eyes: Bilateral Eye Normal Inspection, Bilateral Eye PERRL, Bilateral Eye EOMI HEENT: PERRL/EOMI, TMs Normal Respiratory: No Accessory Muscle Use, No Respiratory Distress Gastrointestinal: Non Tender, Soft Extremity: Normal Capillary Refill, Normal Inspection Neurologic/Psychiatric: Alert, Oriented x3 Skin: Normal Color, Warm/Dry Progress/Results/Core Measures Suspected Sepsis SIRS Temperature: Pulse: Respiratory Rate: Laboratory Tests 09/22/18 16:38: White Blood Count 9.0 Blood Pressure / Mean: Laboratory Tests 09/22/18 16:38: Platelet Count 321 Results/Orders Lab Results Laboratory Tests Test 09/22/18 16:38 Range/Units White Blood Count 9.0 4.3-11.0 10^3/uL Red Blood Count 5.10 4.35-5.85 10^6/uL Hemoglobin 13.1 11.5-16.0 G/DL Hematocrit 41 35-52 % Mean Corpuscular Volume 80 80-99 FL Mean Corpuscular Hemoglobin 26 25-34 PG Mean Corpuscular Hemoglobin Concent 32 32-36 G/DL Red Cell Distribution Width 15.7 H 10.0-14.5 % Platelet Count 321 130-400 10^3/uL Mean Platelet Volume 10.4 7.4-10.4 FL Neutrophils (%) (Auto) 53 42-75 % Lymphocytes (%) (Auto) 35 12-44 % Monocytes (%) (Auto) 8 0-12 % Eosinophils (%) (Auto) 4 0-10 % Basophils (%) (Auto) 0 0-10 % Neutrophils # (Auto) 4.8 1.8-7.8 X 10^3 Lymphocytes # (Auto) 3.1 1.0-4.0 X 10^3 Monocytes # (Auto) 0.7 0.0-1.0 X 10^3 Eosinophils # (Auto) 0.4 H 0.0-0.3 10^3/uL Basophils # (Auto) 0.0 0.0-0.1 10^3/uL My Orders Orders - DANI MARTIN APRN Cbc With Automated Diff (09/22/18 16:04) Comprehensive Metabolic Panel (09/22/18 16:04) Hcg,Qualitative Serum (09/22/18 16:04) Ua Culture If Indicated (09/22/18 16:04) Valproic Acid (09/22/18 16:04) Alcohol (09/22/18 16:04) Salicylate (09/22/18 16:04) Acetaminophen (09/22/18 16:04) Ekg Tracing (09/22/18 16:04) Drug Screen Stat (Urine) (09/22/18 16:22) Olanzapine Orally Dissolve Tab (Zyprexa (09/22/18 16:30) Medications Given in ED Current Medications Medications Dose Ordered Sig/Tierney Route Start Time Stop Time Status Last Admin Dose Admin Olanzapine 5 mg ONCE ONCE PO 09/22/18 16:30 09/22/18 16:31 DC 09/22/18 16:29 5 MG Vital Signs/I&O 09/22/18 16:10 Temp 97.6 Pulse 105 Resp 18 B/P (MAP) 116/58 (77) Pulse Ox 99 O2 Delivery Room Air Capillary Refill : Departure Communication (Admissions) [id number]-patient called me to her room. She states "I have a confession to make. Youre going to be mad but I don't actually need to go to the hospital, I just want to go there to see my friend who is admitted there". She says "if I could just go home with a safety plan thats ok". Impression Primary Impression: Manipulative behavior Additional Impression: Stress at home Disposition: 01 HOME, SELF-CARE Condition: Stable Departure-Patient Inst. Decision time for Depature: 16:49 Referrals: [facility] (PCP/Family) Primary Care Physician Patient Instructions: Depression DANI MARTIN APRN Sep 22, 2018 16:08
[2018-09-22] MEDS ORDERED: OLANZapine 5 MG ODT (ZyPREXA ZYDIS) PO ONE (16:30)
--- NOTE | 2018-09-22 16:40 | NUR ---
Pt requesting to speak with Rj Harrell. Pt would not disclose to this nurse what pt wanted to see Rj about. Rj notified.
[2018-09-22 16:49] LABS: BASOPHILS % (AUTO) 0 % (0-10); EOSINOPHILS # (AUTO) 0.4 10^3/uL (0.0-0.3); EOSINOPHILS % (AUTO) 4 % (0-10); HEMATOCRIT 41 % (35-52); HEMOGLOBIN 13.1 G/DL (11.5-16.0); LYMPHOCYTES # (AUTO) 3.1 X 10^3 (1.0-4.0); LYMPHOCYTES % (AUTO) 35 % (12-44); MEAN CORPUSCULAR HEMOGLOBIN 26 PG (25-34); MEAN CORPUSCULAR HGB CONC 32 G/DL (32-36); MEAN CORPUSCULAR VOLUME 80 FL (80-99); MEAN PLATELET VOLUME 10.4 FL (7.4-10.4); MONOCYTES # (AUTO) 0.7 X 10^3 (0.0-1.0); MONOCYTES % (AUTO) 8 % (0-12); NEUTROPHILS # (AUTO) 4.8 X 10^3 (1.8-7.8); NEUTROPHILS % (AUTO) 53 % (42-75); PLATELET COUNT 321 10^3/uL (130-400); RED CELL DISTRIBUTION WIDTH 15.7 % (10.0-14.5)
[2018-09-22 17:13] LABS: ALANINE AMINOTRANSFERASE 26 U/L (0-55); ALBUMIN 4.3 GM/DL (3.2-4.5); ALKALINE PHOSPHATASE 112 U/L (40-136); BILIRUBIN,TOTAL 0.6 MG/DL (0.1-1.0); BUN/CREATININE RATIO 10; CALCIUM 9.7 MG/DL (8.5-10.1); CARBON DIOXIDE 21 MMOL/L (21-32); CHLORIDE 104 MMOL/L (98-107); CREATININE SERUM 0.83 MG/DL (0.60-1.30); GFR ESTIMATED > 60; GLUCOSE 78 MG/DL (70-105); POTASSIUM 3.6 MMOL/L (3.6-5.0); SALICYLATE < 5.0 MG/DL (5.0-20.0); SODIUM 137 MMOL/L (135-145); TOTAL PROTEIN 7.2 GM/DL (6.4-8.2)
[2018-09-22 17:16] LABS: ACETAMINOPHEN < 10 UG/ML (10-30)
[2018-09-22 17:22] LABS: VALPROIC ACID < 2.0 UG/ML (50.0-100.0)
[2018-09-22 17:25] VITALS: BP 126/87
--- NOTE | 2018-09-22 17:25 | NUR ---
Pt reports no longer feeling suicidal at discharge and states only trying to see a friend in the hospital.
== END 2018-09-22 17:25 | disposition home or self-care (01) ==
LOC: EDUNIT# 15:59 → ER 15:59
DX: F91.8 Other conduct disorders (principal); G43.909 Migraine, unspecified, not intractable, without status migrainosus; E03.9 Hypothyroidism, unspecified; F31.9 Bipolar disorder, unspecified; F20.9 Schizophrenia, unspecified; F41.9 Anxiety disorder, unspecified; E66.9 Obesity, unspecified; Z68.42 Body mass index [BMI] 45.0-49.9, adult; Z87.440 Personal history of urinary (tract) infections; Z63.8 Other specified problems related to primary support group; Z88.8 Allergy status to other drugs, medicaments and biological substances
CPT/HCPCS: 36415; 80053; 80164; 80320; 80329; 84703; 85025; 93005

== ENCOUNTER → 2018-11-20 | Emergency (ER) | payer OTHER | LOC: ER 03:14 ==

== ENCOUNTER 2019-05-21 23:46 | Emergency (ER) | payer SELFPAY ==
[~2019-05-21] VITALS: Ht 160 cm; Wt 101.8 kg
[~2019-05-21 23:46] MED LIST changes: +HYOS0.1283 SL; +ONDA4TAB11 PO; +PANT40TA2 PO
--- NOTE | 2019-05-21 23:47 | NUR ---
brought in by [facility] for c/o suicidial ideation after talking with parent about "impending apocalypse" pt verbalized plan to take extra dose of psych meds. pt states she did not attempt to hurt herself nuvia fontanez is wanting inpatient placement.
--- NOTE | 2019-05-22 00:03 | ED Psychosocial ---
General Chief Complaint: Psych/Social Disorder Stated Complaint: SUICIDAL IDEATIONS Source: patient Exam Limitations: no limitations History of Present Illness Date Seen by Provider: May 21, 2019 Time Seen by Provider: 23:45 Initial Comments Patient resents to ER by EMS from home with chief complaint of suicidal ideation. It stems from a visit with her father this morning. She says he was talking about the apocalypse, COVID 19 in the end of the world and it made her depression worse. She has a plan to take all of her psychiatric medications but denies that she has acted upon it. She has history of suicidal ideation with multiple stays in inpatient psychiatric hospitalization. She has stayed at [facility] and [facility] in [place] as well as [facility] in [place], [place]. She has had suicide attempts in the past by trying to choke herself with a belt as well as overdosing on her lithium. She is no longer on lithium. Last week she had her Abilify switched to Prolixin. She also takes trazodone as needed to help with sleep and she did take a single tablet tonight. She denies having taken anything to harm herself or do any cutting or other self-harm behaviors. She is not having any fever chills cough shortness of breath or travel recently. No known exposures to ill people. She is not on any kind of control. She denies dysuria, nausea, diarrhea or constipation. She says she has schizoaffective disorder and is treated by [facility]. She also has a couns elor. She says she would like to go inpatient to get help with her psychiatric illnesses. She states she has been taking her medications faithfully. She has a history of hypothyroidism for which she has not been medicated because she does not currently follow with a primary care physician. She says she used to be on 25 g of Synthroid in the morning. She states that she smokes about a half pack of cigarettes per day. She has not smoked cannabis in several months. She denies alcohol use. Allergies and Home Medications Allergies Coded Allergies: haloperidol (Verified Allergy, Mild, 12/16/14) Home Medications Divalproex Sodium 500 Mg Tab.er.24h, 1,000 MG PO HS, (Reported) TAKES 2 (500MG) TABLETS Fluoxetine HCl 20 Mg Capsule, 20 MG PO HS, (Reported) Hyoscyamine Sulfate 0.125 Mg Tab.subl, 1-2 TAB SL Q4H Prescribed by: DAVID DUNBAR on 11/20/18721 Levothyroxine Sodium 25 Mcg Tablet, 25 MCG PO DAILY, (Reported) Ondansetron 4 Mg Tab.rapdis, 4 MG PO Q4H Prescribed by: DAVID DUNBAR on 11/20/18721 Pantoprazole Sodium 40 Mg Tablet.dr, 40 MG PO DAILY Prescribed by: DAVID DUNBAR on 11/20/18721 Patient Home Medication List Home Medication List Reviewed: Yes Review of Systems Constitutional: No chills, No diaphoresis, No fever EENTM: No ear discharge, No ear pain Respiratory: No cough, No short of breath Cardiovascular: No chest pain, No edema Gastrointestinal: No abdominal pain, No nausea Genitourinary: No discharge, No dysuria Control/STD Prophylaxis: None Musculoskeletal: No back pain, No joint pain Psychiatric/Neurological: See HPI, Anxiety, Depressed All Other Systems Reviewed Negative Unless Noted: Yes Past Gjfetdw-Bjbrah-Ifunzo Hx Patient Social History Alcohol Use: Denies Use Recreational Drug Use: Yes Drug of Choice: HX OF THC Type Used: Cigarettes 2nd Hand Smoke Exposure: No Recent Hopitalizations: No Immunizations Up To Date Tetanus Booster (TDap): Unknown Date of Influenza Vaccine: Jan 01, 2018 Seasonal Allergies Seasonal Allergies: No Past Medical History Surgeries: No Respiratory: No Cardiac: No Neurological: Yes Headaches /Migraines Reproductive Disorders: Yes Female Reproductive Disorders: Menstrual Problems Genitourinary: Yes UTI-Chronic Gastrointestinal: No Musculoskeletal: No Endocrine: Yes (OBESITY) Hypothyroidsim HEENT: No Cancer: No Psychosocial: Yes Anxiety, Suicide Attempts, Bipolar, Personality Disorder, Schizophrenia, Depression Integumentary: No Blood Disorders: No Family Medical History Asthma 19 MOTHER No Pertinent Family Hx Physical Exam Vital Signs - First Documented 05/21/19 23:47 Temp 36.6 Pulse 99 Resp 20 B/P (MAP) 111/46 (67) Pulse Ox 99 O2 Delivery Room Air Capillary Refill : Height, Weight, BMI Height: 5'3.00" Weight: 275lbs. 5.0oz. 124.284794fp; 49.00 BMI Method:Stated General Appearance: WD/WN, obese HEENT: PERRL/EOMI, pharynx normal Neck: full range of motion, normal inspection Respiratory: lungs clear, normal breath sounds, no respiratory distress, no accessory muscle use Cardiovascular: normal peripheral pulses, regular rate, rhythm Peripheral Pulses: 2+ Radial Pulses (R), 2+ Radial Pulses (L) Neurologic/Psychiatric: alert, oriented x 3, other (tearful, sad affect, distraught) Appearance/Memory: appropriate insight, no memory impairment Behavior/Eye Contact: cooperative, good eye contact, decreased rate of speech (mild), other (very flat affect alternating with tearful affect) Thoughts/Hallucinations: no apparent hallucination Skin: normal color, warm/dry Progress/Results/Core Measures Results/Orders Lab Results Laboratory Tests Test 05/22/19 00:42 05/22/19 01:08 Range/Units White Blood Count 9.6 4.3-11.0 10^3/uL Red Blood Count 4.74 4.35-5.85 10^6/uL Hemoglobin 12.8 11.5-16.0 G/DL Hematocrit 39 35-52 % Mean Corpuscular Volume 81 80-99 FL Mean Corpuscular Hemoglobin 27 25-34 PG Mean Corpuscular Hemoglobin Concent 33 32-36 G/DL Red Cell Distribution Width 14.6 H 10.0-14.5 % Platelet Count 297 130-400 10^3/uL Mean Platelet Volume 10.2 7.4-10.4 FL Neutrophils (%) (Auto) 60 42-75 % Lymphocytes (%) (Auto) 32 12-44 % Monocytes (%) (Auto) 5 0-12 % Eosinophils (%) (Auto) 3 0-10 % Basophils (%) (Auto) 0 0-10 % Neutrophils # (Auto) 5.8 1.8-7.8 X 10^3 Lymphocytes # (Auto) 3.0 1.0-4.0 X 10^3 Monocytes # (Auto) 0.5 0.0-1.0 X 10^3 Eosinophils # (Auto) 0.3 0.0-0.3 10^3/uL Basophils # (Auto) 0.0 0.0-0.1 10^3/uL Sodium Level 138 135-145 MMOL/L Potassium Level 3.6 3.6-5.0 MMOL/L Chloride Level 106 98-107 MMOL/L Carbon Dioxide Level 19 L 21-32 MMOL/L Anion Gap 13 5-14 MMOL/L Blood Urea Nitrogen 11 7-18 MG/DL Creatinine 0.74 0.60-1.30 MG/DL Estimat Glomerular Filtration Rate > 60 BUN/Creatinine Ratio 15 Glucose Level 94 70-105 MG/DL Calcium Level 8.9 8.5-10.1 MG/DL Corrected Calcium 8.8 8.5-10.1 MG/DL Total Bilirubin 0.2 0.1-1.0 MG/DL Aspartate Amino Transf (AST/SGOT) 19 5-34 U/L Alanine Aminotransferase (ALT/SGPT) 14 0-55 U/L Alkaline Phosphatase 81 40-136 U/L Total Protein 6.6 6.4-8.2 GM/DL Albumin 4.1 3.2-4.5 GM/DL Thyroid Stimulating Hormone (TSH) 3.85 0.35-4.94 UIU/ML Salicylates Level < 5.0 L 5.0-20.0 MG/DL Acetaminophen Level < 10 L 10-30 UG/ML Serum Alcohol < 10 <10 MG/DL Urine Color YELLOW Urine Clarity CLEAR Urine pH 6.0 5-9 Urine Specific [place] 1.015 L 1.016-1.022 Urine Protein NEGATIVE NEGATIVE Urine Glucose (UA) NEGATIVE NEGATIVE Urine Ketones NEGATIVE NEGATIVE Urine Nitrite NEGATIVE NEGATIVE Urine Bilirubin NEGATIVE NEGATIVE Urine Urobilinogen 0.2 < = 1.0 MG/DL Urine Leukocyte Esterase NEGATIVE NEGATIVE Urine RBC (Auto) NEGATIVE NEGATIVE Urine RBC NONE /HPF Urine WBC NONE /HPF Urine Squamous Epithelial Cells 2-5 /HPF Urine Crystals NONE /LPF Urine Bacteria NEGATIVE /HPF Urine Casts NONE /LPF Urine Mucus SMALL H /LPF Urine Culture Indicated NO Urine Opiates Screen NEGATIVE NEGATIVE Urine Oxycodone Screen NEGATIVE NEGATIVE Urine Methadone Screen NEGATIVE NEGATIVE Urine Propoxyphene Screen NEGATIVE NEGATIVE Urine Barbiturates Screen NEGATIVE NEGATIVE Ur Tricyclic Antidepressants Screen NEGATIVE NEGATIVE Urine Phencyclidine Screen NEGATIVE NEGATIVE Urine Amphetamines Screen NEGATIVE NEGATIVE Urine Methamphetamines Screen NEGATIVE NEGATIVE Urine Benzodiazepines Screen NEGATIVE NEGATIVE Urine Cocaine Screen NEGATIVE NEGATIVE Urine Cannabinoids Screen NEGATIVE NEGATIVE My Orders Orders - NANCY FLORES Ua Culture If Indicated (05/21/19 23:55) Cbc With Automated Diff (05/21/19 23:55) Comprehensive Metabolic Panel (05/21/19 23:55) Alcohol (05/21/19 23:55) Drug Screen Stat (Urine) (05/21/19 23:55) Acetaminophen (05/21/19 23:55) Salicylate (05/21/19 23:55) Ekg Tracing (05/21/19 23:55) Bh Status Checks/Observation Q15M (05/21/19 23:55) Urine Bedside (05/21/19 23:55) Thyroid Stimulating Hormone (05/22/19 00:42) Vital Signs/I&O 05/21/19 23:47 Temp 36.6 Pulse 99 Resp 20 B/P (MAP) 111/46 (67) Pulse Ox 99 O2 Delivery Room Air Progress Progress Note #1: Time: 00:02 Progress Note Patient is voluntary to go inpatient psychiatric. She says she is suicidal and has a plan. She certainly has the means. We will check labs, urine, bedside and check a TSH. If she has concealed an overdose she is asymptomatic at this time. By the time her labs come back in about 1-2 hours we should see some evidence. So far I suspect she is being truthful. Progress Note #2: Time: 01:29 Progress Note Patient has been calm, cooperative and sleeping most of the time since she's been here. She states now that she would prefer to go home with a safety plan and follow up outpatient with [facility]. She has done this successfully in the past. We would like to support her on this and medicines were labs and urine are back she is okay from a medical standpoint then we will talk to [facility] about screening her. Progress Note #3: Time: 02:42 Progress Note Ibis from [facility] is here and has evaluated the patient and after discussing with her team has agreed with a safety plan, routine checks over the weekend and follow up Friday morning. We're in agreement with this plan. We will allow the patient to discharge home with her Initial ECG Impression Date: May 22, 2019 Initial ECG Impression Time: 00:16 Initial ECG Rate: 85 Initial ECG Rhythm: Normal Sinus Initial ECG Intervals: Normal Initial ECG Impression: Normal Initial ECG Comparisson: Unchanged Comment Normal sinus rhythm without ST elevation or depression. No dysrhythmia. Departure Impression Primary Impression: Suicidal ideation Additional Impression: Anxiety and depression Disposition: 01 HOME, SELF-CARE Condition: Stable Departure-Patient Inst. Decision time for Depature: 02:42 [facility] ([facility]Family) Primary Care Physician Patient Instructions: Suicide Prevention Add. Discharge Instructions: Follow-up with [facility]. Return to the ER if you're having thoughts of suicide or other concerning symptoms. All discharge instructions reviewed with patient and/or family. Voiced understanding. NANCY FLORES May 22, 2019 00:02
[2019-05-22 00:55] LABS: BASOPHILS % (AUTO) 0 % (0-10); EOSINOPHILS # (AUTO) 0.3 10^3/uL (0.0-0.3); EOSINOPHILS % (AUTO) 3 % (0-10); HEMATOCRIT 39 % (35-52); HEMOGLOBIN 12.8 G/DL (11.5-16.0); LYMPHOCYTES % (AUTO) 32 % (12-44); MEAN CORPUSCULAR HEMOGLOBIN 27 PG (25-34); MEAN CORPUSCULAR HGB CONC 33 G/DL (32-36); MEAN CORPUSCULAR VOLUME 81 FL (80-99); MEAN PLATELET VOLUME 10.2 FL (7.4-10.4); MONOCYTES # (AUTO) 0.5 X 10^3 (0.0-1.0); MONOCYTES % (AUTO) 5 % (0-12); NEUTROPHILS # (AUTO) 5.8 X 10^3 (1.8-7.8); NEUTROPHILS % (AUTO) 60 % (42-75); PLATELET COUNT 297 10^3/uL (130-400); RED CELL DISTRIBUTION WIDTH 14.6 % (10.0-14.5); WHITE BLOOD COUNT 9.6 10^3/uL (4.3-11.0)
[2019-05-22 01:15] LABS: ALANINE AMINOTRANSFERASE 14 U/L (0-55); ALBUMIN 4.1 GM/DL (3.2-4.5); ALKALINE PHOSPHATASE 81 U/L (40-136); BILIRUBIN,TOTAL 0.2 MG/DL (0.1-1.0); BUN/CREATININE RATIO 15; CALCIUM 8.9 MG/DL (8.5-10.1); CARBON DIOXIDE 19 MMOL/L (21-32); CHLORIDE 106 MMOL/L (98-107); CREATININE SERUM 0.74 MG/DL (0.60-1.30); GFR ESTIMATED > 60; GLUCOSE 94 MG/DL (70-105); POTASSIUM 3.6 MMOL/L (3.6-5.0); SALICYLATE < 5.0 MG/DL (5.0-20.0); SODIUM 138 MMOL/L (135-145); TOTAL PROTEIN 6.6 GM/DL (6.4-8.2)
[2019-05-22 01:20] LABS: BILIRUBIN,URINE NEGATIVE (NEGATIVE); CLARITY,URINE CLEAR; COLOR,URINE YELLOW; GLUCOSE, URINE (UA) NEGATIVE (NEGATIVE); KETONES,URINE NEGATIVE (NEGATIVE); LEUKOCYTE ESTERASE ,URINE NEGATIVE (NEGATIVE); NITRITE,URINE NEGATIVE (NEGATIVE); PROTEIN,URINE NEGATIVE (NEGATIVE)
[2019-05-22 01:30] LABS: AMPHETAMINE SCREEN, URINE NEGATIVE (NEGATIVE); BACTERIA,URINE NEGATIVE /HPF; BARBITURATE SCREEN URINE NEGATIVE (NEGATIVE); BENZODIAZEPINES SCREEN URINE NEGATIVE (NEGATIVE); CANNABINOID SCREEN, URINE NEGATIVE (NEGATIVE); COCAINE SCREEN URINE NEGATIVE (NEGATIVE); METHADONE STAT NEGATIVE (NEGATIVE); METHAMPHETAMINE SCREEN URINE S NEGATIVE (NEGATIVE); OPIATE SCREEN URINE NEGATIVE (NEGATIVE); OXYCODONE STAT NEGATIVE (NEGATIVE); PROPOXYPHENE STAT NEGATIVE (NEGATIVE); TRICYCLIC ANTIDEPRESSANTS SCRE NEGATIVE (NEGATIVE)
[2019-05-22 01:31] LABS: ACETAMINOPHEN < 10 UG/ML (10-30)
--- NOTE | 2019-05-22 02:31 | NUR ---
davies campush here talking with patient.
[2019-05-22 02:45] VITALS: BP 112/51
== END 2019-05-22 02:46 | disposition home or self-care (01) ==
LOC: EDUNIT# 23:46 → ER 23:48
DX: R45.851 Suicidal ideations (principal); F41.9 Anxiety disorder, unspecified; F32.9 Major depressive disorder, single episode, unspecified; F20.9 Schizophrenia, unspecified; E03.9 Hypothyroidism, unspecified; E66.9 Obesity, unspecified; G43.909 Migraine, unspecified, not intractable, without status migrainosus; F17.210 Nicotine dependence, cigarettes, uncomplicated; Z88.8 Allergy status to other drugs, medicaments and biological substances
CPT/HCPCS: 36415; 80053; 80306; 80320; 80329; 81000; 84443; 84703; 85025; 93005

== ENCOUNTER 2019-05-27 19:35 | Emergency (ER) | payer SELFPAY ==
[~2019-05-27] VITALS: Ht 160 cm; Wt 104.5 kg
--- NOTE | 2019-05-27 19:41 | ED General ---
General Stated Complaint: SUDICIDAL TEN. Source of Information: Patient Exam Limitations: No Limitations History of Present Illness Date Seen by Provider: May 27, 2019 Time Seen by Provider: 19:40 Initial Comments To ER per EMS from home with reports of overdose allegedly. She states that 30 minutes ago she took 10 of her trazodone tablets unknown how many milligrams. She did this out of anger and she did want to hurt herself. She no longer is suicidal and realizes this was a bad decision and is no longer suicidal. Timing/Duration: 1/2 Hour Severity: Moderate Allergies and Home Medications Allergies Coded Allergies: haloperidol (Verified Allergy, Mild, 12/16/14) Home Medications Divalproex Sodium 500 Mg Tab.er.24h, 1,000 MG PO HS, (Reported) TAKES 2 (500MG) TABLETS Fluoxetine HCl 20 Mg Capsule, 20 MG PO HS, (Reported) Hyoscyamine Sulfate 0.125 Mg Tab.subl, 1-2 TAB SL Q4H Prescribed by: DAVID DUNBAR on 11/20/18721 Levothyroxine Sodium 25 Mcg Tablet, 25 MCG PO DAILY, (Reported) Ondansetron 4 Mg Tab.rapdis, 4 MG PO Q4H Prescribed by: DAVID DUNBAR on 11/20/18721 Pantoprazole Sodium 40 Mg Tablet.dr, 40 MG PO DAILY Prescribed by: DAVID DUNBAR on 11/20/18721 Patient Home Medication List Home Medication List Reviewed: Yes Review of Systems Review of Systems Constitutional: see HPI EENTM: see HPI Respiratory: no symptoms reported Cardiovascular: no symptoms reported Genitourinary: no symptoms reported Musculoskeletal: no symptoms reported Skin: no symptoms reported Psychiatric/Neurological: No Symptoms Reported Past Ootfkvj-Yvrckr-Koxscd Hx Patient Social History Drug of Choice: HX OF THC Type Used: Cigarettes 2nd Hand Smoke Exposure: No Recent Hopitalizations: No Immunizations Up To Date Tetanus Booster (TDap): Unknown Date of Influenza Vaccine: Jan 01, 2018 Seasonal Allergies Seasonal Allergies: No Past Medical History Surgeries: No Respiratory: No Cardiac: No Neurological: Yes Headaches /Migraines Reproductive Disorders: Yes Female Reproductive Disorders: Menstrual Problems Genitourinary: Yes UTI-Chronic Gastrointestinal: No Musculoskeletal: No Endocrine: Yes (OBESITY) Hypothyroidsim HEENT: No Cancer: No Psychosocial: Yes Anxiety, Suicide Attempts, Bipolar, Personality Disorder, Schizophrenia, Depression Integumentary: No Blood Disorders: No Family Medical History Asthma 19 MOTHER No Pertinent Family Hx Physical Exam Vital Signs Vital Signs - First Documented 05/27/19 19:35 Temp 36.8 Pulse 112 Resp 12 B/P (MAP) 120/66 (84) Pulse Ox 98 O2 Delivery Room Air Capillary Refill : Height, Weight, BMI Height: 5'3.00" Weight: 275lbs. 5.0oz. 124.108576gr; 39.00 BMI Method:Stated General Appearance: No Apparent Distress, WD/WN, Other (is alert and oriented and has no symptoms at this time.) Eyes: Bilateral Eye Normal Inspection, Bilateral Eye PERRL HEENT: PERRL/EOMI, TMs Normal, Normal ENT Inspection Neck: Full Range of Motion, Normal Inspection Respiratory: No Accessory Muscle Use, No Respiratory Distress Cardiovascular: Regular Rate, Rhythm, Normal Peripheral Pulses Gastrointestinal: Normal Bowel Sounds, Non Tender, Soft Extremity: Normal Capillary Refill, Normal Inspection Neurologic/Psychiatric: Alert, Oriented x3, No Motor/Sensory Deficits Skin: Normal Color, Warm/Dry Progress/Results/Core Measures Suspected Sepsis SIRS Temperature: Pulse: Respiratory Rate: Laboratory Tests 05/27/19 19:35: White Blood Count 9.1 Blood Pressure / Mean: Laboratory Tests 05/27/19 19:35: Creatinine 0.77, Platelet Count 309, Total Bilirubin 0.3 Results/Orders Lab Results Laboratory Tests Test 05/27/19 19:35 05/27/19 20:22 Range/Units White Blood Count 9.1 4.3-11.0 10^3/uL Red Blood Count 4.70 4.35-5.85 10^6/uL Hemoglobin 12.7 11.5-16.0 G/DL Hematocrit 38 35-52 % Mean Corpuscular Volume 81 80-99 FL Mean Corpuscular Hemoglobin 27 25-34 PG Mean Corpuscular Hemoglobin Concent 33 32-36 G/DL Red Cell Distribution Width 14.9 H 10.0-14.5 % Platelet Count 309 130-400 10^3/uL Mean Platelet Volume 10.0 7.4-10.4 FL Neutrophils (%) (Auto) 53 42-75 % Lymphocytes (%) (Auto) 35 12-44 % Monocytes (%) (Auto) 7 0-12 % Eosinophils (%) (Auto) 4 0-10 % Basophils (%) (Auto) 0 0-10 % Neutrophils # (Auto) 4.8 1.8-7.8 X 10^3 Lymphocytes # (Auto) 3.2 1.0-4.0 X 10^3 Monocytes # (Auto) 0.7 0.0-1.0 X 10^3 Eosinophils # (Auto) 0.4 H 0.0-0.3 10^3/uL Basophils # (Auto) 0.0 0.0-0.1 10^3/uL Sodium Level 137 135-145 MMOL/L Potassium Level 3.2 L 3.6-5.0 MMOL/L Chloride Level 105 98-107 MMOL/L Carbon Dioxide Level 24 21-32 MMOL/L Anion Gap 8 5-14 MMOL/L Blood Urea Nitrogen 9 7-18 MG/DL Creatinine 0.77 0.60-1.30 MG/DL Estimat Glomerular Filtration Rate > 60 BUN/Creatinine Ratio 12 Glucose Level 104 70-105 MG/DL Calcium Level 9.6 8.5-10.1 MG/DL Corrected Calcium 9.3 8.5-10.1 MG/DL Total Bilirubin 0.3 0.1-1.0 MG/DL Aspartate Amino Transf (AST/SGOT) 16 5-34 U/L Alanine Aminotransferase (ALT/SGPT) 15 0-55 U/L Alkaline Phosphatase 88 40-136 U/L Total Protein 6.9 6.4-8.2 GM/DL Albumin 4.4 3.2-4.5 GM/DL Serum Test, Qualitative NEGATIVE NEGATIVE Salicylates Level < 5.0 L 5.0-20.0 MG/DL Acetaminophen Level < 10 L 10-30 UG/ML Serum Alcohol < 10 <10 MG/DL Urine Color YELLOW Urine Clarity CLEAR Urine pH 7.0 5-9 Urine Specific [place] 1.015 L 1.016-1.022 Urine Protein NEGATIVE NEGATIVE Urine Glucose (UA) NEGATIVE NEGATIVE Urine Ketones NEGATIVE NEGATIVE Urine Nitrite NEGATIVE NEGATIVE Urine Bilirubin NEGATIVE NEGATIVE Urine Urobilinogen 0.2 < = 1.0 MG/DL Urine Leukocyte Esterase NEGATIVE NEGATIVE Urine RBC (Auto) NEGATIVE NEGATIVE Urine RBC NONE /HPF Urine WBC NONE /HPF Urine Squamous Epithelial Cells 10-25 H /HPF Urine Crystals NONE /LPF Urine Bacteria TRACE /HPF Urine Casts NONE /LPF Urine Mucus NEGATIVE /LPF Urine Culture Indicated NO Urine Opiates Screen NEGATIVE NEGATIVE Urine Oxycodone Screen NEGATIVE NEGATIVE Urine Methadone Screen NEGATIVE NEGATIVE Urine Propoxyphene Screen NEGATIVE NEGATIVE Urine Barbiturates Screen NEGATIVE NEGATIVE Ur Tricyclic Antidepressants Screen NEGATIVE NEGATIVE Urine Phencyclidine Screen NEGATIVE NEGATIVE Urine Amphetamines Screen NEGATIVE NEGATIVE Urine Methamphetamines Screen NEGATIVE NEGATIVE Urine Benzodiazepines Screen NEGATIVE NEGATIVE Urine Cocaine Screen NEGATIVE NEGATIVE Urine Cannabinoids Screen NEGATIVE NEGATIVE My Orders Orders - DANI MARTIN CARTON FOLDER Cbc With Automated Diff (05/27/19 19:37) Hcg,Qualitative Serum (05/27/19 19:37) Comprehensive Metabolic Panel (05/27/19 19:37) Ua Culture If Indicated (05/27/19 19:37) Alcohol (05/27/19 19:37) Salicylate (05/27/19 19:37) Acetaminophen (05/27/19 19:37) Ekg Tracing (05/27/19 19:37) Ed Iv/Invasive Line Start (05/27/19 19:37) Potassium Chloride (Tablet) (K Dur Table (05/27/19 21:45) Drug Screen Stat (Urine) (05/27/19 22:02) Ekg Tracing (05/27/19 22:03) Medications Given in ED Current Medications Medications Dose Ordered Sig/Tierney Route Start Time Stop Time Status Last Admin Dose Admin Potassium Chloride 40 meq ONCE ONCE PO 05/27/19 21:45 05/27/19 21:46 DC 05/27/19 21:48 40 MEQ Vital Signs/I&O 05/27/19 19:35 Temp 36.8 Pulse 112 Resp 12 B/P (MAP) 120/66 (84) Pulse Ox 98 O2 Delivery Room Air Capillary Refill : Departure Communication (Admissions) Spoke with poison control, they would recommend watching for symptoms of low heart rate seizures nausea vomiting and lethargy for 4-6 hours from time of ingestion. She needs an EKG every 2 hours 3 watching for QT prolongation and if the QT is longer than 500 ms she would need a one-time dose of 1-2 g of magnesium sulfate IV. 2300-alert and oriented states she feels well, she states that taking the pills earlier was "a bad decision". States she does not want to hurt herself and assures me that if she goes home she will not hurt herself. She intends to go home and eat macaroni and cheese and go to bed. Impression Primary Impression: Suicidal overdose Qualified Codes: T50.902A - Poisoning by unspecified drugs, medicaments and biological substances, intentional self-harm, initial encounter Disposition: HOME, SELF-CARE Condition: Stable Departure-Patient Inst. Decision time for Depature: 23:00 [facility]errals: [facility] (PCP/Family) Primary Care Physician Patient Instructions: Depression DANI MARTIN APRN May 27, 2019 19:40
[2019-05-27 19:52] LABS: BASOPHILS % (AUTO) 0 % (0-10); EOSINOPHILS # (AUTO) 0.4 10^3/uL (0.0-0.3); EOSINOPHILS % (AUTO) 4 % (0-10); HEMATOCRIT 38 % (35-52); HEMOGLOBIN 12.7 G/DL (11.5-16.0); LYMPHOCYTES # (AUTO) 3.2 X 10^3 (1.0-4.0); LYMPHOCYTES % (AUTO) 35 % (12-44); MEAN CORPUSCULAR HEMOGLOBIN 27 PG (25-34); MEAN CORPUSCULAR HGB CONC 33 G/DL (32-36); MEAN CORPUSCULAR VOLUME 81 FL (80-99); MONOCYTES # (AUTO) 0.7 X 10^3 (0.0-1.0); MONOCYTES % (AUTO) 7 % (0-12); NEUTROPHILS # (AUTO) 4.8 X 10^3 (1.8-7.8); NEUTROPHILS % (AUTO) 53 % (42-75); PLATELET COUNT 309 10^3/uL (130-400); RED CELL DISTRIBUTION WIDTH 14.9 % (10.0-14.5); WHITE BLOOD COUNT 9.1 10^3/uL (4.3-11.0)
[2019-05-27 20:17] LABS: ALANINE AMINOTRANSFERASE 15 U/L (0-55); ALBUMIN 4.4 GM/DL (3.2-4.5); ALKALINE PHOSPHATASE 88 U/L (40-136); BILIRUBIN,TOTAL 0.3 MG/DL (0.1-1.0); BUN/CREATININE RATIO 12; CALCIUM 9.6 MG/DL (8.5-10.1); CARBON DIOXIDE 24 MMOL/L (21-32); CHLORIDE 105 MMOL/L (98-107); CREATININE SERUM 0.77 MG/DL (0.60-1.30); GFR ESTIMATED > 60; GLUCOSE 104 MG/DL (70-105); POTASSIUM 3.2 MMOL/L (3.6-5.0); SALICYLATE < 5.0 MG/DL (5.0-20.0); SODIUM 137 MMOL/L (135-145); TOTAL PROTEIN 6.9 GM/DL (6.4-8.2)
[2019-05-27 20:31] LABS: BILIRUBIN,URINE NEGATIVE (NEGATIVE); CLARITY,URINE CLEAR; COLOR,URINE YELLOW; GLUCOSE, URINE (UA) NEGATIVE (NEGATIVE); KETONES,URINE NEGATIVE (NEGATIVE); LEUKOCYTE ESTERASE ,URINE NEGATIVE (NEGATIVE); NITRITE,URINE NEGATIVE (NEGATIVE); PROTEIN,URINE NEGATIVE (NEGATIVE)
[2019-05-27 20:38] LABS: BACTERIA,URINE TRACE /HPF
[2019-05-27 21:00] LABS: ACETAMINOPHEN < 10 UG/ML (10-30)
[2019-05-27 21:30] VITALS: BP 95/45
[2019-05-27] MEDS ORDERED: KCL 20 MEQ TAB (K-DUR) PO ONE (21:45)
[2019-05-27 22:29] LABS: AMPHETAMINE SCREEN, URINE NEGATIVE (NEGATIVE); BARBITURATE SCREEN URINE NEGATIVE (NEGATIVE); BENZODIAZEPINES SCREEN URINE NEGATIVE (NEGATIVE); CANNABINOID SCREEN, URINE NEGATIVE (NEGATIVE); COCAINE SCREEN URINE NEGATIVE (NEGATIVE); METHADONE STAT NEGATIVE (NEGATIVE); METHAMPHETAMINE SCREEN URINE S NEGATIVE (NEGATIVE); OPIATE SCREEN URINE NEGATIVE (NEGATIVE); OXYCODONE STAT NEGATIVE (NEGATIVE); PROPOXYPHENE STAT NEGATIVE (NEGATIVE); TRICYCLIC ANTIDEPRESSANTS SCRE NEGATIVE (NEGATIVE)
[2019-05-27 22:30] VITALS: BP 107/67
[2019-05-27 23:14] VITALS: BP 101/58
== END 2019-05-27 23:14 | disposition home or self-care (01) ==
LOC: EDUNIT# 19:35 → ER 19:38
DX: T43.212A Poisoning by selective serotonin and norepinephrine reuptake inhibitors, intentional self-harm, initial encounter (principal); E03.9 Hypothyroidism, unspecified; F41.9 Anxiety disorder, unspecified; F31.9 Bipolar disorder, unspecified; F60.9 Personality disorder, unspecified; F20.9 Schizophrenia, unspecified
CPT/HCPCS: 36415; 80053; 80306; 80320; 80329; 81000; 84703; 85025

== ENCOUNTER 2019-06-10 02:37 | Emergency (ER) | payer SELFPAY ==
[~2019-06-10] VITALS: Ht 170 cm; Wt 104.5 kg
--- NOTE | 2019-06-10 03:03 | ED Psychosocial ---
General Chief Complaint: Psych/Social Disorder Stated Complaint: SUICIDAL Nursing Triage Note: PT PRESENTS TO THE ED C/O INCREASED SUICIDAL IDEATION THAT BEGAN ONE HOUR AGO. PT STATES EARLIER IN THE EVENING SHE BECAME COMBATIVE WITH FRIENDS, FEEL SLIKE HER MEDS ARE OFF OR NOT EFFECTIVE. PT STATES SHE HAD PLANS TO EITHER CUT OR OVERDOSE ON PERSCRIBED MEDS Source: patient, EMS Exam Limitations: no limitations History of Present Illness Date Seen by Provider: Jun 10, 2019 Time Seen by Provider: 02:40 Initial Comments Patient presents to ER by EMS from home with chief complaint that she has been more agitated the last few days and she associates this with her lack of sleep due to being taken off her trazodone. She says Dr. Coats took her off her trazodone because she had overdosed on it. She had replaced with Vistaril which does help with her anxiety but she says does not help with her insomnia. The patient has an appointment with Dr. Coats in 7 days but does not feel this is soon enough. She does not want to go inpatient psychiatric hospitalization. She has done that before. She did call the [facility] line twice in the first time they recommended some strategies which she tried unsuccessfully. The second time they encouraged her to call an ambulance and come to the emergency room. The patient says she has become so distraught tonight that within the last hour or 2 she thought about taking all of her pills to kill herself. She does have a history of suicidal ideation with plan for taking her own pills. She also has a history of self-harm cutting behavior. She has several superficial scratches on her arm consistent with fingernail as well as old scars similar on her bilateral lower extremities. She says she did not take anything to harm herself. She does occasionally drink alcohol but she has not had any in the last few days. She does smoke cigarettes. She said earlier yesterday she also almost became involved in an altercation with one of her friends and thought about slamming her head and of the floor and wall because they suggested that she not cuddle with her boyfriend in front of her boyfriend's ex. Allergies and Home Medications Allergies Coded Allergies: haloperidol (Verified Allergy, Mild, 12/16/14) Home Medications Divalproex Sodium 500 Mg Tab.er.24h, 1,000 MG PO HS, (Reported) TAKES 2 (500MG) TABLETS Fluoxetine HCl 20 Mg Capsule, 20 MG PO HS, (Reported) Hyoscyamine Sulfate 0.125 Mg Tab.subl, 1-2 TAB SL Q4H Prescribed by: DAVID DUNBAR on 11/20/18721 Levothyroxine Sodium 25 Mcg Tablet, 25 MCG PO DAILY, (Reported) Ondansetron 4 Mg Tab.rapdis, 4 MG PO Q4H Prescribed by: DAVID DUNBAR on 11/20/18721 Pantoprazole Sodium 40 Mg Tablet.dr, 40 MG PO DAILY Prescribed by: DAVID DUNBAR on 11/20/18721 Patient Home Medication List Home Medication List Reviewed: Yes Review of Systems Constitutional: No chills, No fever EENTM: No ear discharge, No hearing loss, No blurred vision Respiratory: No cough, No short of breath Cardiovascular: No chest pain, No edema Gastrointestinal: No abdominal pain, No constipation, No diarrhea, No nausea Genitourinary: No discharge, No dysuria Control/STD Prophylaxis: None Musculoskeletal: No back pain, No joint pain Skin: see HPI; No pruritus, No rash Psychiatric/Neurological: Denies Anxiety; Depressed, Emotional Problems All Other Systems Reviewed Negative Unless Noted: Yes Past Vvgsbrw-Crrbhq-Prdnox Hx Patient Social History Alcohol Use: Occasionally Uses Alcohol Beverage of Choice: Beer Recreational Drug Use: Yes Drug of Choice: HX OF THC Smoking Status: Current Everyday Smoker Type Used: Cigarettes 2nd Hand Smoke Exposure: No Recent Foreign Travel: No Contact w/Someone Who Travel: No Recent Infectious Disease Expo: No Recent Hopitalizations: No Physical Abuse: No Sexual Abuse: No Mistreated: No Fear: No Immunizations Up To Date Tetanus Booster (TDap): Unknown Date of Influenza Vaccine: Jan 01, 2018 Seasonal Allergies Seasonal Allergies: No Past Medical History Surgeries: No Respiratory: No Cardiac: No Neurological: Yes Headaches /Migraines : No Last Menstrual Period: Jun 10, 2019 Reproductive Disorders: Yes Female Reproductive Disorders: Menstrual Problems Genitourinary: Yes UTI-Chronic Gastrointestinal: No Musculoskeletal: No Endocrine: Yes (OBESITY) Hypothyroidsim HEENT: No Cancer: No Psychosocial: Yes Anxiety, Suicide Attempts, Bipolar, Personality Disorder, Schizophrenia, Depression Integumentary: No Blood Disorders: No Family Medical History Asthma 19 MOTHER No Pertinent Family Hx Physical Exam Vital Signs - First Documented 06/10/19 02:40 Temp 36.7 Pulse 103 Resp 20 B/P (MAP) 133/74 (93) Pulse Ox 99 O2 Delivery Room Air Capillary Refill : Less Than 3 Seconds Height, Weight, BMI Height: 5'3.00" Weight: 275lbs. 5.0oz. 124.408994hl; 36.00 BMI Method:Stated General Appearance: WD/WN, no apparent distress HEENT: PERRL/EOMI, pharynx normal Neck: full range of motion, supple, normal inspection Respiratory: lungs clear, normal breath sounds, no respiratory distress, no accessory muscle use Cardiovascular: normal peripheral pulses, regular rate, rhythm Peripheral Pulses: 2+ Radial Pulses (R), 2+ Radial Pulses (L) Gastrointestinal: normal bowel sounds, non tender, soft Extremities: normal range of motion, non-tender, normal capillary refill Neurologic/Psychiatric: no motor/sensory deficits, alert, normal mood/affect, oriented x 3 Appearance/Memory: no memory impairment, disheveled Behavior/Eye Contact: cooperative, good eye contact, normal speech Thoughts/Hallucinations: no apparent hallucination Skin: normal color, warm/dry, other (faint excoriations bilateral upper extremities) Progress/Results/Core Measures Results/Orders Lab Results Laboratory Tests Test 06/10/19 03:34 Range/Units White Blood Count 11.3 H 4.3-11.0 10^3/uL Red Blood Count 5.13 4.35-5.85 10^6/uL Hemoglobin 13.8 11.5-16.0 G/DL Hematocrit 42 35-52 % Mean Corpuscular Volume 82 80-99 FL Mean Corpuscular Hemoglobin 27 25-34 PG Mean Corpuscular Hemoglobin Concent 33 32-36 G/DL Red Cell Distribution Width 15.1 H 10.0-14.5 % Platelet Count 313 130-400 10^3/uL Mean Platelet Volume 10.7 H 7.4-10.4 FL Neutrophils (%) (Auto) 50 42-75 % Lymphocytes (%) (Auto) 36 12-44 % Monocytes (%) (Auto) 7 0-12 % Eosinophils (%) (Auto) 6 0-10 % Basophils (%) (Auto) 1 0-10 % Neutrophils # (Auto) 5.7 1.8-7.8 X 10^3 Lymphocytes # (Auto) 4.1 H 1.0-4.0 X 10^3 Monocytes # (Auto) 0.8 0.0-1.0 X 10^3 Eosinophils # (Auto) 0.7 H 0.0-0.3 10^3/uL Basophils # (Auto) 0.1 0.0-0.1 10^3/uL My Orders Orders - NANCY FLORES Ua Culture If Indicated (06/10/19 02:51) Cbc With Automated Diff (06/10/19 02:51) Comprehensive Metabolic Panel (06/10/19 02:51) Alcohol (06/10/19 02:51) Drug Screen Stat (Urine) (06/10/19 02:51) Acetaminophen (06/10/19 02:51) Salicylate (06/10/19 02:51) Ekg Tracing (06/10/19 02:51) Monitor-Rhythm Ecg Trace Only (06/10/19 02:51) Bh Status Checks/Observation Q15M (06/10/19 02:51) Urine Bedside (06/10/19 02:51) Vital Signs/I&O 06/10/19 02:40 Temp 36.7 Pulse 103 Resp 20 B/P (MAP) 133/74 (93) Pulse Ox 99 O2 Delivery Room Air Blood Pressure Mean: 93 Progress Progress Note #1: Time: 03:06 Progress Note Patient feels like she needs better control of her insomnia. We will try and have the screener set up a safety plan with her and discuss if a sooner appointment with Dr. Coats would be available during business hours. Progress Note #2: Time: 03:48 Progress Note [facility] line called and spoke with the patient made a safety plan and feels comfortable letting her go. We also agree with this plan. The patient will pursue outpatient therapy. Initial ECG Impression Date: Jun 10, 2019 Initial ECG Impression Time: 03:06 Initial ECG Rate: 76 Initial ECG Rhythm: Normal Sinus Initial ECG Intervals: Normal Initial ECG Impression: Normal Initial ECG Comparisson: Unchanged Comment Normal sinus rhythm without clinically relevant ST elevation or depression. Departure Impression Primary Impression: Passive suicidal ideations Additional Impression: Insomnia Qualified Codes: G47.00 - Insomnia, unspecified Disposition: 01 HOME, SELF-CARE Condition: Stable Departure-Patient Inst. Decision time for Depature: 03:51 Referrals: [facility] (PCP/Family) Primary Care Physician Patient Instructions: Tips for Getting Better Sleep Add. Discharge Instructions: Please in here to the Plan set up by you and [facility]. All discharge instructions reviewed with patient and/or family. Voiced understanding. NANCY FLORES Jun 10, 2019 03:03
--- NOTE | 2019-06-10 03:29 | NUR ---
Luther Crandall mental screener contacted at this time to consult with pt.
[2019-06-10 03:41] LABS: BASOPHILS # (AUTO) 0.1 10^3/uL (0.0-0.1); BASOPHILS % (AUTO) 1 % (0-10); EOSINOPHILS # (AUTO) 0.7 10^3/uL (0.0-0.3); EOSINOPHILS % (AUTO) 6 % (0-10); HEMATOCRIT 42 % (35-52); HEMOGLOBIN 13.8 G/DL (11.5-16.0); LYMPHOCYTES # (AUTO) 4.1 X 10^3 (1.0-4.0); LYMPHOCYTES % (AUTO) 36 % (12-44); MEAN CORPUSCULAR HEMOGLOBIN 27 PG (25-34); MEAN CORPUSCULAR HGB CONC 33 G/DL (32-36); MEAN CORPUSCULAR VOLUME 82 FL (80-99); MEAN PLATELET VOLUME 10.7 FL (7.4-10.4); MONOCYTES # (AUTO) 0.8 X 10^3 (0.0-1.0); MONOCYTES % (AUTO) 7 % (0-12); NEUTROPHILS # (AUTO) 5.7 X 10^3 (1.8-7.8); NEUTROPHILS % (AUTO) 50 % (42-75); PLATELET COUNT 313 10^3/uL (130-400); RED CELL DISTRIBUTION WIDTH 15.1 % (10.0-14.5); WHITE BLOOD COUNT 11.3 10^3/uL (4.3-11.0)
[2019-06-10 03:52] LABS: CHLORIDE 105 MMOL/L (98-107); POTASSIUM 3.5 MMOL/L (3.6-5.0); SODIUM 140 MMOL/L (135-145)
[2019-06-10 03:53] LABS: ALBUMIN 4.5 GM/DL (3.2-4.5)
[2019-06-10 03:54] LABS: CALCIUM 9.4 MG/DL (8.5-10.1)
[2019-06-10 03:55] LABS: GLUCOSE 79 MG/DL (70-105); TOTAL PROTEIN 7.3 GM/DL (6.4-8.2)
[2019-06-10 03:56] LABS: CARBON DIOXIDE 23 MMOL/L (21-32)
[2019-06-10 03:57] LABS: BILIRUBIN,TOTAL 0.2 MG/DL (0.1-1.0)
[2019-06-10 03:58] VITALS: BP 133/74
[2019-06-10 03:59] LABS: ALKALINE PHOSPHATASE 86 U/L (40-136); CREATININE SERUM 0.78 MG/DL (0.60-1.30); GFR ESTIMATED > 60
[2019-06-10 04:00] LABS: BUN/CREATININE RATIO 12
[2019-06-10 04:02] LABS: ALANINE AMINOTRANSFERASE 16 U/L (0-55); SALICYLATE < 5.0 MG/DL (5.0-20.0)
[2019-06-10 04:04] LABS: ACETAMINOPHEN < 10 UG/ML (10-30)
== END 2019-06-10 04:00 | disposition home or self-care (01) ==
LOC: EDUNIT# 02:37 → ER 02:39
DX: R45.851 Suicidal ideations (principal); G47.00 Insomnia, unspecified; F31.9 Bipolar disorder, unspecified; F41.9 Anxiety disorder, unspecified; E03.9 Hypothyroidism, unspecified; E66.9 Obesity, unspecified; F17.210 Nicotine dependence, cigarettes, uncomplicated; Z88.8 Allergy status to other drugs, medicaments and biological substances; Z68.36 Body mass index [BMI] 36.0-36.9, adult
CPT/HCPCS: 36415; 80053; 80320; 80329; 85025; 93005; 93041

== ENCOUNTER 2019-08-04 04:00 | Emergency (ER) | payer MEDICAID, OTHER ==
[~2019-08-04] VITALS: Ht 160 cm; Wt 104.5 kg
--- OUTSIDE RECORDS SUMMARY | 2019-08-04 04:07 | XMS REPORT | Clinical Summary ---
Author Author [facility] Organization [facility] Address Unknown Phone Unavailable Care Team Providers Care Sr. Logistics Analyst Name Role Phone Unassigned, None PCP Unavailable Allergies Comments Active Allergy Reactions Severity Noted Date States it makes her "freak out" Haloperidol Anxiety, 10/09/2014 Other (See Comments) Medications End Date Status Medication Sig Dispensed Refills Start Date Active FLUoxetine (PROZAC) 40 MG Take 40 mg by 0 05/02 capsule mouth. 8 Active levothyroxine (SYNTHROID) Take by 0 05/02 25 MCG tablet mouth. 8 Active divalproex (DEPAKOTE ER) Take 1,000 mg 0 500 MG 24 hr tablet by mouth daily. Active paliperidone (INVEGA) 6 Take 1 tablet 30 tablet 0 03/27/ MG 24 hr (6 mg total) 9 tabletIndications: by mouth Schizoaffective Disorder daily. Indications: Schizoaffecti ve Disorder Active Problems Problem Noted Date Schizoaffective disorder, bipolar type 03/24/2018 Generalized anxiety disorder 03/24/2018 Hypothyroidism 03/24/2018 Depression 03/23/2018 Resolved Problems Problem Noted Date Resolved Date Suicidal ideation 03/24/2018 03/26/2018 Homicidal ideation 03/26/2018 Immunizations Name Administration Dates Next Due INFLUENZA IIV4 PF 01/25/2018 (FLULAVAL,FLUZONE,FLUARIX ,AFLURIA QUAD) Social History Date Tobacco Use Types Packs/Day [...] Comments Vital Sign 119/62 03/26/2018 7:25 AM [employer] Blood Pressure 99 03/26/2018 7:25 AM [employer] Pulse 36.2 C (97.2 F) 03/26/2018 7:24 AM [employer] Temperature 17 03/26/2018 7:24 AM [employer] Respiratory Rate 99% 03/26/2018 7:24 AM [employer] Oxygen Saturation - - Inhaled Oxygen Concentration 122.5 kg (270 lb) 03/23/2018 4:33 PM [employer] Weight 160 cm (5' 3") 03/23/2018 4:33 PM [employer] Height 47.83 03/23/2018 4:33 PM [employer] Body Mass Index Plan of Treatment Health Maintenance Due Date Last Done Comments Varicella Vaccines (1 of 1996 2 - 2-dose childhood series) Pneumo-Vaccine: Peds (0-5 2001 Yrs) & At-Risk Patients (6-64 Yrs) (1 of 1 - PPSV23) HPV Vaccines (1 - 2-dose 2006 series) DTaP,Tdap,and Td Vaccines 2014 (1 - Tdap) MMR Vaccines-Adult 2014 Cervical Cancer Screening 2016 Influenza Vaccine (Season 11/02/2019 01/25/2018 Ended) Results Not on filefrom Last 3 Months Insurance Type Payer Benefit Subscriber ID Effective Phone Address Plan / Dates Group MEDICAID MEDIKAN xxxxxxxxxxx 2018- [phone] [id number] [place] [address] Advance Directives For more information, please contact: [phone] 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
--- OUTSIDE RECORDS SUMMARY | 2019-08-04 04:10 | XMS REPORT ---
Author Author Amna Carreon Doctor Organization [facility] Address Unknown Phone Unavailable Care Team Providers Care File Clerk Data Entry Name Role Phone Migration, Doctor Unavailable Unavailable PROBLEMS Type Condition ICD9-CM Code CXZ19-IF Code Onset Dates Condition S tatus SNOMED Code Problem Breakthrough bleeding on depo provera N92.1 Active 47913335 Problem Bipolar depression F31.30 Active 4 7012945 Problem Borderline personality disorder F60.3 Active 03440308 Problem PTSD (post-traumatic stress disorder) F43.10 Active 47932787 Problem Overweight E66.3 Active 769467204 Problem Establishing care with new doctor, encounter for Z 71.89 Active 392831439 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 20931965 Problem Schizoaffective disorder, unspecified condition F2 5.9 Active [id number] ALLERGIES No Information ENCOUNTERS Encounter Location Date Diagnosis [place] [address] [place] [id number] [place] [phone] Aug, Borderline personality disor krishna F60.3 and Schizoaffective disorder, unspecified condition F25.9 [place] [address] [place] [id number] [place] [address] Aug, Borderline personality disor krishna F60.3 and Schizoaffective disorder, unspecified condition F25.9 [place] [address] [place] [id number] [place] [address] July, [place] [address] [place] [id number] [place] [address] July, Borderline personality disor krishna F60.3 and Schizoaffective disorder, unspecified condition F25.9 [place] [address] [facility] [id number] [address] [place] [address] Jun, Borderline personality disor krishna F60.3 and Schizoaffective disorder, unspecified condition F25.9 [facility] [address] [id number] [address] [place] [address] May, Borderline personality disor krishna F60.3 ; Schizoaffective disorder, unspecified condition F25.9 and PTSD (post-traumatic stress disorder) F43.10 [facility] [address] [facility] [id number] [address] [place] [address] Apr, Schizoaffective disorder, un specified condition F25.9 ; Borderline personality disorder F60.3 and PTSD (post-traumatic stress disorder) F43.10 [facility] [address] [facility] [id number] [address] [place] [address] Apr, Schizoaffective disorder, un specified condition F25.9 and Borderline personality disorder F60.3 [facility] [address] [facility] [id number] [address] [place] [address] Apr, Bipolar depression F31.30 ; Overweight E66.3 ; Schizoaffective disorder, unspecified condition F25.9 and Borderline personality disorder F60.3 [facility] [address] [facility] [id number] [address] [place] [address] Mar, Borderline personality disor krishna F60.3 ; Schizoaffective disorder, unspecified condition F25.9 ; Bipolar depression F31.30 and Overweight E66.3 [facility] [address] [facility] [id number] [address] [place] [address] Mar, Schizoaffective disorder, un specified condition F25.9 and Borderline personality disorder F60.3 [facility] [address] [id number] [address] [place] [address] Mar, Schizoaffective disorder, un specified condition F25.9 and Borderline personality disorder F60.3 [facility] [address] [facility] [id number] [address] [place] [address] Jan, Schizoaffective disorder, un specified condition F25.9 and Borderline personality disorder F60.3 [facility] [address] [facility] [id number] [address] [place] [address] Jan, Schizoaffective disorder, un specified condition F25.9 and Borderline personality disorder F60.3 [facility] [address] [place] [id number] [place] [address] Jan, [facility] [address] [address] Jan, Schizoaffective disorder, un specified condition F25.9 and Borderline personality disorder F60.3 [facility] [address] [place] [id number] [place] [phone] 17 Jan, 2017 Vaginal itching L29.8 and Va ginal carlos B37.3 [place] [address] [address] Jan, Schizoaffective disorder, un specified condition F25.9 and Borderline personality disorder F60.3 [place] [address] [address] Jan, Bipolar depression F31.30 [place] [address] [address] Jan, Bipolar depression F31.30 [facility] [address] [id number] Dec, [facility] [address] [address] Dec, 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 [facility] [address] [place] [id number] [place] [address] Oct, Nausea R11.0 [place] [address] [address] Oct, Encounter for test , result unknown Z32.00 [facility] [address] [place] [id number] [place] [address] July, Bipolar depression F31.30 an d Overweight E66.3 [facility] [address] [facility] [id number] [address] [place] [address] 07 Jun, 2016 Establishing care with [place], encounter for Z71.89 [facility] [address] [facility] [id number] [address] [place] [address] May, Establishing care with [place], encounter for Z71.89 ; Overweight E66.3 and Bipolar depression F31.30 [facility] [address] [facility] [id number] [address] [place] [address] May, [facility] [address] [facility] [id number] [address] [place] [address] May, [facility] [address] [facility] [id number] [address] [place] [address] May, [facility] [address] [place] [id number] [address] [place] [address] May, Encounter for Depo-Provera c ontraception Z30.42 [facility] [address] [place] [id number] [place] [address] Jan, Encounter for Depo-Provera c ontraception Z30.42 [facility] [address] [place] [id number] [place] [address] Jan, Breakthrough bleeding on dep o provera N92.1 [facility] [address] [place] [id number] [place] [address] 03 Dec, 2015 Encounter for other general counseling and advice on contraception Z30.09 and Encounter for Depo-Provera contraception Z30.42 [facility] [address] [facility] [id number] [address] [place] [address] Nov, control counseling V25 .09 [place] [address] [place] [id number] [place] [address] 14 Nov, 2014 Unspecified episodic mood di sorder 296.90 ; Anxiety state, unspecified 300.00 and [place] II diagnosis deferred 799.9 [facility] [address] [place] [address] 09 Nov, 2014 Elevated liver enzymes 790.5 and Elevated prolactin level 259.9 [facility] [address] [id number] [address] [place] [address] Nov, [facility] [address] [facility] [id number] [address] [place] [address] Oct, Routine general medical exam ination at [facility] care facility V70.0 [facility] [address] [id number] [address] [place] [address] Mar, [facility] [address] [id number] [address] [place] [address] Mar, [facility] [address] [facility] [id number] [address] [place] [address] Jan, [facility] [address] [facility] [id number] [address] [place] [address] Jan, [facility] [address] [facility] [id number] [address] [place] [address] Oct, IMMUNIZATIONS No Known Immunizations SOCIAL HISTORY Never Assessed REASON FOR VISIT PLAN OF CARE VITAL SIGNS Height 64.5 in 2014-03-28 Weight 132.09 lbs 2014-03-28 Temperature 99.3 degrees Fahrenheit 2014-03-28 Heart Rate 72 bpm 2014-03-28 Respiratory Rate 20 2014-03-28 Blood pressure systolic 102 mmHg 2014-03-28 Blood pressure diastolic 64 mmHg 2014-03-28 MEDICATIONS Unknown Medications RESULTS No Results PROCEDURES No Known procedures INSTRUCTIONS MEDICATIONS ADMINISTERED No Known Medications MEDICAL (GENERAL) HISTORY Type Description Date Medical History schizoaffective disorder Medical History borderline personality disorder Hospitalization History 5 times in 2014 for mental health Hospitalization History May Unit #2 for suicide thoughts 07/2016 Hospitalization History intentional overdose, suicide [facility]emp [facility] 12/28/2016
--- OUTSIDE RECORDS SUMMARY | 2019-08-04 04:12 | XMS REPORT | Continuity of Care Document ---
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 MD Ot F41.9 ANXIETY DISORDER, UNSPECIFIED 06/16/2018 NUNU LUJAN MD Ot G43.909 MIGRAINE, UNSP, NOT INTRACTABLE, WITHOUT 06/16/2018 NUNU LUJAN MD Ot R45.851 SUICIDAL IDEATIONS 06/16/2018 NUNU LUJAN MD Ot Z68.42 BODY MASS INDEX (BMI) 45.0-49.9, ADULT 06/16/2018 NUNU LUJAN MD Ot Z87.440 PERSONAL HISTORY OF URINARY (TRACT) INFE 06/16/2018 NUNU LUJAN MD Ot Z88.8 ALLERGY STATUS TO OTH DRUG/MEDS/BIOL SUB 06/16/2018 NUNU LUJAN MD Ot Z91.5 PERSONAL HISTORY OF SELF-HARM 08/03/2018 NANCY FLORES MD Ot E03. 9 HYPOTHYROIDISM, UNSPECIFIED 08/03/2018 NANCY FLORES MD Ot E66. 9 OBESITY, UNSPECIFIED 08/03/2018 NANCY FLORES MD Ot F20. 9 SCHIZOPHRENIA, UNSPECIFIED 08/03/2018 NANCY FLORES MD Ot F31. 9 BIPOLAR DISORDER, UNSPECIFIED 08/03/2018 NANCY FLORES MD J Ot F41. 9 ANXIETY DISORDER, UNSPECIFIED 08/03/2018 NANCY FLORES MD Ot G43.909 MIGRAINE, UNSP, NOT INTRACTABLE, WITHOUT 08/03/2018 NANCY FLORES MD J Ot R45.851 SUICIDAL IDEATIONS 08/03/2018 NANCY FLORES MD Ot Z87.440 PERSONAL HISTORY OF URINARY (TRACT) INFE 08/03/2018 NANCY FLORES MD Ot Z88. 8 ALLERGY STATUS TO OTH DRUG/MEDS/BIOL SUB 08/03/2018 NANCY FLORES MD Ot Z91. 5 PERSONAL HISTORY OF SELF-HARM 08/06/2018 NANCY FLORES MD Ot E03. 9 HYPOTHYROIDISM, UNSPECIFIED 08/06/2018 NANCY FLORES MD Ot E66. 9 OBESITY, UNSPECIFIED 08/06/2018 NANCY FLORES MD Ot F20. 9 SCHIZOPHRENIA, UNSPECIFIED 08/06/2018 NANCY FLORES MD Ot F31. 9 BIPOLAR DISORDER, UNSPECIFIED 08/06/2018 NANCY FLORES MD Ot F41. 9 ANXIETY DISORDER, UNSPECIFIED 08/06/2018 NANCY FLORES MD J Ot G43.909 MIGRAINE, UNSP, NOT INTRACTABLE, WITHOUT 08/06/2018 NANCY FLORES MD J Ot R45.851 SUICIDAL IDEATIONS 08/06/2018 NANCY FLORES MD Ot Z87.440 PERSONAL HISTORY OF URINARY (TRACT) INFE 08/06/2018 NANCY FLORES MD Ot Z88. 8 ALLERGY STATUS TO OTH DRUG/MEDS/BIOL SUB 08/06/2018 NANCY FLORES MD Ot Z91. 5 PERSONAL HISTORY OF SELF-HARM 09/01/2018 BETTINA DO, DAVID K Ot E03.9 HYPOTHYROIDISM, UNSPECIFIED 09/01/2018 BETTINA DO, DAVID K Ot E66.9 OBESITY, UNSPECIFIED 09/01/2018 BETTINA DO, DAVID K Ot F20.9 SCHIZOPHRENIA, UNSPECIFIED 09/01/2018 BETTINA DO, DAVID K Ot F31.9 BIPOLAR DISORDER, UNSPECIFIED 09/01/2018 BETTINA DO, DAVID K Ot F41.9 ANXIETY DISORDER, UNSPECIFIED 09/01/2018 BETTINA DO, DAVID K Ot G43.909 MIGRAINE, UNSP, NOT INTRACTABLE, WITHOUT 09/01/2018 BETTINA DO, DAVID K Ot R45.851 SUICIDAL IDEATIONS 09/01/2018 BETTINA DO, DAVID K Ot Z87.440 PERSONAL HISTORY OF URINARY (TRACT) INFE 09/01/2018 BETTINA DO, DAVID K Ot Z88.8 ALLERGY STATUS TO OTH DRUG/MEDS/BIOL SUB 09/02/2018 BETTINA DO, DAVID K Ot E03.9 HYPOTHYROIDISM, UNSPECIFIED 09/02/2018 BETTINA DO, DAVID K Ot E66.9 OBESITY, UNSPECIFIED 09/02/2018 BETTINA DO, DAVID K Ot F20.9 SCHIZOPHRENIA, UNSPECIFIED 09/02/2018 BETTINA DO, DAVID K Ot F31.9 BIPOLAR DISORDER, UNSPECIFIED 09/02/2018 BETTINA DO, DAVID K Ot F41.9 ANXIETY DISORDER, UNSPECIFIED 09/02/2018 BETTINA DO, DAVID K Ot G43.909 MIGRAINE, UNSP, NOT INTRACTABLE, WITHOUT 09/02/2018 BETTINA DO, DAVID K Ot R45.851 SUICIDAL IDEATIONS 09/02/2018 BETTINA DO, DAVID K Ot Z87.440 PERSONAL HISTORY OF URINARY (TRACT) INFE 09/02/2018 BETTINA DO, DAVID K Ot Z88.8 ALLERGY STATUS TO OTH DRUG/MEDS/BIOL SUB 09/28/2018 DANI MARTIN APRN Ot E03 .9 HYPOTHYROIDISM, UNSPECIFIED 09/28/2018 DANI MARTIN APRN Ot E66 .9 OBESITY, UNSPECIFIED 09/28/2018 DANI MARTIN APRN Ot F20 .9 SCHIZOPHRENIA, UNSPECIFIED 09/28/2018 DANI MARTIN APRN Ot F31 .9 BIPOLAR DISORDER, UNSPECIFIED 09/28/2018 DANI MARTIN APRN Ot F41 .9 ANXIETY DISORDER, UNSPECIFIED 09/28/2018 DANI MARTIN APRN Ot F91 .8 OTHER CONDUCT DISORDERS 09/28/2018 DANI MARTIN APRN Ot G43.909 MIGRAINE, UNSP, NOT INTRACTABLE, WITHOUT 09/28/2018 DANI MARTIN APRN Ot R45.851 SUICIDAL IDEATIONS 09/28/2018 DANI MARTIN APRN Ot Z63 .8 OTHER SPECIFIED PROBLEMS RELATED TO PRIM 09/28/2018 DANI MARTIN APRN Ot Z68.42 BODY MASS INDEX (BMI) 45.0-49.9, ADULT 09/28/2018 DANI MARTIN APRN Ot Z87.440 PERSONAL HISTORY OF URINARY (TRACT) INFE 09/28/2018 DANI MARTIN APRN Ot Z88 .8 ALLERGY STATUS TO OTH DRUG/MEDS/BIOL SUB 09/30/2018 DANI MARTIN APRN Ot E03 .9 HYPOTHYROIDISM, UNSPECIFIED 09/30/2018 DANI MARTIN APRN Ot E66 .9 OBESITY, UNSPECIFIED 09/30/2018 DANI MARTIN APRN Ot F20 .9 SCHIZOPHRENIA, UNSPECIFIED 09/30/2018 DANI MARTIN APRN Ot F31 .9 BIPOLAR DISORDER, UNSPECIFIED 09/30/2018 DANI MARTIN APRN Ot F41 .9 ANXIETY DISORDER, UNSPECIFIED 09/30/2018 DANI MARTIN APRN Ot F91 .8 OTHER CONDUCT DISORDERS 09/30/2018 DANI MARTIN APRN Ot G43.909 MIGRAINE, UNSP, NOT INTRACTABLE, WITHOUT 09/30/2018 DANI MARTIN APRN Ot R45.851 SUICIDAL IDEATIONS 09/30/2018 DANI MARTIN APRN Ot Z63 .8 OTHER SPECIFIED PROBLEMS RELATED TO PRIM 09/30/2018 DANI MARTIN APRN Ot Z68.42 BODY MASS INDEX (BMI) 45.0-49.9, ADULT 09/30/2018 DANI MARTIN APRN Ot Z87.440 PERSONAL HISTORY OF URINARY (TRACT) INFE 09/30/2018 DANI MARTIN APRN Ot Z88 .8 ALLERGY STATUS TO OTH DRUG/MEDS/BIOL SUB 10/16/2018 NANCY FLORES MD Ot E03. 9 HYPOTHYROIDISM, UNSPECIFIED 10/16/2018 NANCY FLORES MD Ot E66. 9 OBESITY, UNSPECIFIED 10/16/2018 NANCY FLORES MD Ot F12. 10 CANNABIS ABUSE, UNCOMPLICATED 10/16/2018 NACNY FLORES MD Ot F17.210 NICOTINE DEPENDENCE, CIGARETTES, UNCOMPL 10/16/2018 NANCY FLORES MD Ot F20. 9 SCHIZOPHRENIA, UNSPECIFIED 10/16/2018 NANCY FLORES MD Ot F31. 9 BIPOLAR DISORDER, UNSPECIFIED 10/16/2018 NANCY FLORES MD Ot F41. 0 PANIC DISORDER [EPISODIC PAROXYSMAL ANXI 10/16/2018 NANCY FLORES MD Ot F41. 9 ANXIETY DISORDER, UNSPECIFIED 10/16/2018 NANCY FLORES MD Ot G43.909 MIGRAINE, UNSP, NOT INTRACTABLE, WITHOUT 10/16/2018 NANCY FLORES MD Ot R45.851 SUICIDAL IDEATIONS 10/16/2018 NANCY FLORES MD Ot Z68. 42 BODY MASS INDEX (BMI) 45.0-49.9, ADULT 10/16/2018 NANCY FLORES MD Ot Z87.440 PERSONAL HISTORY OF URINARY (TRACT) INFE 10/16/2018 NANCY FLORES MD Ot Z88. 8 ALLERGY STATUS TO OTH DRUG/MEDS/BIOL SUB 10/16/2018 NANCY FLORES MD Ot Z91. 5 PERSONAL HISTORY OF SELF-HARM 11/24/2018 BETTINA DO DAVID K Ot E03.9 HYPOTHYROIDISM, UNSPECIFIED 11/24/2018 BETTINA DO DAVID K Ot E66.9 OBESITY, UNSPECIFIED 11/24/2018 BETTINA DO DAVID K Ot F17.210 NICOTINE DEPENDENCE, CIGARETTES, UNCOMPL 11/24/2018 BETTINA DO DAVID K Ot F20.9 SCHIZOPHRENIA, UNSPECIFIED 11/24/2018 BETTINA DO DAVID K Ot F31.9 BIPOLAR DISORDER, UNSPECIFIED 11/24/2018 BETTINA DAVID DAVID K Ot F41.9 ANXIETY DISORDER, UNSPECIFIED 11/24/2018 DAVID DUNBAR DO Ot F60.9 PERSONALITY DISORDER, UNSPECIFIED 11/24/2018 DAVID DUNBAR DO Ot G43.909 MIGRAINE, UNSP, NOT INTRACTABLE, WITHOUT 11/24/2018 DAVID DUNBAR DO Ot R10.13 EPIGASTRIC PAIN 11/24/2018 DAVID DUNBAR DO Ot R11.2 NAUSEA WITH VOMITING, UNSPECIFIED 11/24/2018 BETTINA DAVID Carrington Ot R19.7 DIARRHEA, UNSPECIFIED 11/24/2018 DAVID DUNBAR DO Ot Z87.440 PERSONAL HISTORY OF URINARY (TRACT) INFE 11/24/2018 BETTINA DAVID DAVID K Ot Z88.8 ALLERGY STATUS TO OTH DRUG/MEDS/BIOL SUB 11/24/2018 BETTINA DAVID DAVID Zeb Ot Z91.5 PERSONAL HISTORY OF SELF-HARM 05/22/2019 SANDRA DEAN, NANCY Brower Ot E03. 9 HYPOTHYROIDISM, UNSPECIFIED 05/22/2019 SANDRA DEAN, NANCY Brower Ot E66. 9 OBESITY, UNSPECIFIED 05/22/2019 SANDRA DEAN, NANCY Brower Ot F17.210 NICOTINE DEPENDENCE, CIGARETTES, UNCOMPL 05/22/2019 SANDRA DEAN, NANCY Brower Ot F20. 9 SCHIZOPHRENIA, UNSPECIFIED 05/22/2019 SANDRA DEAN, NANCY Brower Ot F32. 9 MAJOR DEPRESSIVE DISORDER, SINGLE EPISOD 05/22/2019 SANDRA DEAN, NANCY Brower Ot F41. 9 ANXIETY DISORDER, UNSPECIFIED 05/22/2019 SANDRA DEAN, NANCY Brower Ot G43.909 MIGRAINE, UNSP, NOT INTRACTABLE, WITHOUT 05/22/2019 SANDRA DEAN, NANCY Brower Ot R45.851 SUICIDAL IDEATIONS 05/22/2019 SANDRA DEAN, NANCY Brower Ot Z88. 8 ALLERGY STATUS TO OTH DRUG/MEDS/BIOL SUB 05/27/2019 DANI MARTIN APRN Ot E03 .9 HYPOTHYROIDISM, UNSPECIFIED 05/27/2019 DANI MARTIN APRN Ot F20 .9 SCHIZOPHRENIA, UNSPECIFIED 05/27/2019 DANI MARTIN APRN Ot F31 .9 BIPOLAR DISORDER, UNSPECIFIED 05/27/2019 DANI MARTIN APRN Ot F41 .9 ANXIETY DISORDER, UNSPECIFIED 05/27/2019 MARTIN, DANI Brower HELP AID Ot F60 .9 PERSONALITY DISORDER, UNSPECIFIED 05/27/2019 MARTIN, DANI Brower HELP AID Ot T43.212A POISN BY SLCTV SEROTON/NOREPINEPH REUP I 05/31/2019 MARTIN, DANI Brower APRN Ot E03 .9 HYPOTHYROIDISM, UNSPECIFIED 05/31/2019 MARTIN, DANI Brower HELP AID Ot F20 .9 SCHIZOPHRENIA, UNSPECIFIED 05/31/2019 MARTIN, DANI Brower HELP AID Ot F31 .9 BIPOLAR DISORDER, UNSPECIFIED 05/31/2019 MARTIN, DANI Brower HELP AID Ot F41 .9 ANXIETY DISORDER, UNSPECIFIED 05/31/2019 MARTIN, DANI Brower HELP AID Ot F60 .9 PERSONALITY DISORDER, UNSPECIFIED 05/31/2019 MARTIN, DANI Brower APRN Ot T43.212A POISN BY SLCTV SEROTON/NOREPINEPH REUP I 06/02/2019 MARTIN, DANI Brower APRN Ot E03 .9 HYPOTHYROIDISM, UNSPECIFIED 06/02/2019 MARTIN, DANI Brower APRN Ot F20 .9 SCHIZOPHRENIA, UNSPECIFIED 06/02/2019 MARTIN, DANI Brower APRN Ot F31 .9 BIPOLAR DISORDER, UNSPECIFIED 06/02/2019 MARTIN, DANI Brower APRN Ot F41 .9 ANXIETY DISORDER, UNSPECIFIED 06/02/2019 MARTIN, DANI Brower APRN Ot F60 .9 PERSONALITY DISORDER, UNSPECIFIED 06/02/2019 MARTIN, DANI Brower APRN Ot T43.212A POISN BY SLCTV SEROTON/NOREPINEPH REUP I 06/03/2019 MARTIN, DANI Brower APRN Ot E03 .9 HYPOTHYROIDISM, UNSPECIFIED 06/03/2019 MARTIN, DANI Brower HELP AID Ot F20 .9 SCHIZOPHRENIA, UNSPECIFIED 06/03/2019 MARTIN, DANI Brower HELP AID Ot F31 .9 BIPOLAR DISORDER, UNSPECIFIED 06/03/2019 MARTIN, DANI Brower HELP AID Ot F41 .9 ANXIETY DISORDER, UNSPECIFIED 06/03/2019 MARTIN, DANI Brower HELP AID Ot F60 .9 PERSONALITY DISORDER, UNSPECIFIED 06/03/2019 MARTIN, DANI Brower HELP AID Ot T43.212A POISN BY SLCTV SEROTON/NOREPINEPH REUP I 06/04/2019 MARTIN, DANI Brower HELP AID Ot E03 .9 HYPOTHYROIDISM, UNSPECIFIED 06/04/2019 DANI MARTIN HELP AID Ot F20 .9 SCHIZOPHRENIA, UNSPECIFIED 06/04/2019 MARTINDANI HELP AID Ot F31 .9 BIPOLAR DISORDER, UNSPECIFIED 06/04/2019 MARTINDANI HELP AID Ot F41 .9 ANXIETY DISORDER, UNSPECIFIED 06/04/2019 MARTINDANI HELP AID Ot F60 .9 PERSONALITY DISORDER, UNSPECIFIED 06/04/2019 MARTINDANI HELP AID Ot T43.212A POISN BY SLCTV SEROTON/NOREPINEPH REUP I 06/10/2019 NANCY FLORES MD Ot E03. 9 HYPOTHYROIDISM, UNSPECIFIED 06/10/2019 NANCY FLORES MD Ot E66. 9 OBESITY, UNSPECIFIED 06/10/2019 SANDRA DEAN, NANCY Brower Ot F17.210 NICOTINE DEPENDENCE, CIGARETTES, UNCOMPL 06/10/2019 NANCY FLORES MD Ot F31. 9 BIPOLAR DISORDER, UNSPECIFIED 06/10/2019 NANCY FLORES MD Ot F41. 9 ANXIETY DISORDER, UNSPECIFIED 06/10/2019 NANCY FLORES MD Ot G47. 00 INSOMNIA, UNSPECIFIED 06/10/2019 NANCY FLORES MD Ot R45.851 SUICIDAL IDEATIONS 06/10/2019 NANCY FLORES MD Ot Z68. 36 BODY MASS INDEX (BMI) 36.0-36.9, ADULT 06/10/2019 NANCY FLORES MD Ot Z88. 8 ALLERGY STATUS TO OTH DRUG/MEDS/BIOL SUB 06/14/2019 NANCY FLORES MD Ot E03. 9 HYPOTHYROIDISM, UNSPECIFIED 06/14/2019 NANCY FLORES MD Ot E66. 9 OBESITY, UNSPECIFIED 06/14/2019 SANDRA DEAN, NANYC Brower Ot F17.210 NICOTINE DEPENDENCE, CIGARETTES, UNCOMPL 06/14/2019 NANCY FLORES MD Ot F31. 9 BIPOLAR DISORDER, UNSPECIFIED 06/14/2019 NANCY FLORES MD Ot F41. 9 ANXIETY DISORDER, UNSPECIFIED 06/14/2019 NANCY FLORES MD Ot G47. 00 INSOMNIA, UNSPECIFIED 06/14/2019 NANCY FLORES MD Ot R45.851 SUICIDAL IDEATIONS 06/14/2019 NANCY FLORES MD Ot Z68. 36 BODY MASS INDEX (BMI) 36.0-36.9, ADULT 06/14/2019 SANDRA DEAN, NANCY J Ot Z88. 8 ALLERGY STATUS TO OTH DRUG/MEDS/BIOL SUB 06/16/2019 NANCY FLORES MD Ot E03. 9 HYPOTHYROIDISM, UNSPECIFIED 06/16/2019 NANCY FLORES MD Ot E66. 9 OBESITY, UNSPECIFIED 06/16/2019 SANDRA DEAN, NANCY J Ot F17.210 NICOTINE DEPENDENCE, CIGARETTES, UNCOMPL 06/16/2019 NANCY FLORES MD Ot F31. 9 BIPOLAR DISORDER, UNSPECIFIED 06/16/2019 SANDRA DEAN, NANCY Brower Ot F41. 9 ANXIETY DISORDER, UNSPECIFIED 06/16/2019 NANCY FLROES MD Ot G47. 00 INSOMNIA, UNSPECIFIED 06/16/2019 SANDRA DEAN, NANCY Brower Ot R45.851 SUICIDAL IDEATIONS 06/16/2019 NANCY FLORES MD Ot Z68. 36 BODY MASS INDEX (BMI) 36.0-36.9, ADULT 06/16/2019 NANCY FLORES MD Ot Z88. 8 ALLERGY STATUS TO OTH DRUG/MEDS/BIOL SUB 06/22/2019 NANCY FLORES MD Ot E03. 9 HYPOTHYROIDISM, UNSPECIFIED 06/22/2019 NANCY FLORES MD Ot E66. 9 OBESITY, UNSPECIFIED 06/22/2019 SANDRA DEAN, NANCY Brower Ot F12. 10 CANNABIS ABUSE, UNCOMPLICATED 06/22/2019 SANDRA DEAN, NANCY Brower Ot F17.210 NICOTINE DEPENDENCE, CIGARETTES, UNCOMPL 06/22/2019 NANCY FLORES MD Ot F20. 9 SCHIZOPHRENIA, UNSPECIFIED 06/22/2019 SANDRA DEAN, NANCY Brower Ot F31. 9 BIPOLAR DISORDER, UNSPECIFIED 06/22/2019 SANDRA DEAN, NANCY Brower Ot F41. 0 PANIC DISORDER [EPISODIC PAROXYSMAL ANXI 06/22/2019 NANCY FLORES MD Ot F41. 9 ANXIETY DISORDER, UNSPECIFIED 06/22/2019 SANDRA DEAN, NANCY J Ot G43.909 MIGRAINE, UNSP, NOT INTRACTABLE, WITHOUT 06/22/2019 NANCY FLORES MD Ot R45.851 SUICIDAL IDEATIONS 06/22/2019 NANCY FLORES MD Ot Z68. 42 BODY MASS INDEX (BMI) 45.0-49.9, ADULT 06/22/2019 NANCY FLORES MD, Ot Z87.440 PERSONAL HISTORY OF URINARY (TRACT) INFE 06/22/2019 NANCY FLORES MD, Ot Z88. 8 ALLERGY STATUS TO OT DRUG/MEDS/BIOL SUB 06/22/2019 NANCY FLORES MD, Ot Z91. 5 PERSONAL HISTORY OF SELF-HARM Procedures There is no data. Results Test Result Range Pap Lb, rfx HPV ASCU - 12/04/15 16:18 DIAGNOSIS: Comment Specimen adequacy: Comment Clinician provided ICD10: Comment Performed by: Comment . . Note: Comment . Comment Genital Culture, Routine - 12/04/15 16:1 8 Genital Culture, Routine Note Complete urinalysis with reflex to cultu re - 04/14/16 20:44 Urine color determination YELLOW NRG Urine clarity determination SLIGHTLY CLOUDY NRG Urine pH measurement by test strip 7 5-9 Specific gravity of urine by test strip 1.010 1.016-1.022 Urine protein assay by test strip, semi-quantitative NEGATIVE NEGATIVE Urine glucose detection by automated test strip NE GATIVE NEGATIVE Erythrocytes detection in urine sediment by light micr oscopy NEGATIVE NEGATIVE Urine ketones detection by automated test strip NE GATIVE NEGATIVE Urine nitrite detection by test strip NEGATIVE NEGATIVE Urine total bilirubin detection by test strip NEGA TIVE NEGATIVE Urine urobilinogen measurement by automated test strip (mass/volume) NORMAL NORMAL Urine leukocyte esterase detection by dipstick NEG ATIVE NEGATIVE Automated urine sediment erythrocyte cou nt by microscopy (number/high power field) NONE NRG Automated urine sediment leukocyte count by microscopy (number/high power field) [HPF] NRG Bacteria detection in urine sediment by light microsco py NEGATIVE NRG Squamous epithelial cells detection in u rine sediment by light microscopy >50 NRG Crystals detection in urine sediment by light microsco py NONE NRG Casts detection in urine sediment by light microscopy NONE NRG Mucus detection in urine sediment by light microscopy NEGATIVE NRG Complete urinalysis with reflex to culture NO NRG Renal epithelial cells detection in urin e sediment by light microscopy NONE NRG Urine drug screening test - 04/14/16 20: 44 Urine phencyclidine detection by screening method NEGATIVE NEGATIVE Urine benzodiazepines detection by screening method NEGATIVE NEGATIVE Urine cocaine detection NEGATIVE NEGATI VE Urine amphetamines detection by screening method N EGATIVE NEGATIVE Urine methamphetamine detection by screening method NEGATIVE NEGATIVE Urine cannabinoids detection by screening method N EGATIVE NEGATIVE Urine opiates detection by screening method NEGATI VE NEGATIVE Urine barbiturates detection NEGATIVE N EGATIVE Screening urine tricyclic antidepressants detection NEGATIVE NEGATIVE Urine methadone detection by screening method NEGA TIVE NEGATIVE Urine oxycodone detection NEGATIVE NEGA TIVE Urine propoxyphene detection NEGATIVE N EGATIVE Complete blood count (CBC) with automate d white blood cell (WBC) differential - 04/14/16 20:55 Blood leukocytes automated count (number/volume) 7.4 10*3/uL 4.3-11.0 Blood erythrocytes automated count (number/volume) 4.58 10*6/uL 4.35-5.85 Venous blood hemoglobin measurement (mass/volume) 12.7 g/dL 11.5-16.0 Blood hematocrit (volume fraction) 38 % 35-52 Automated erythrocyte mean corpuscular volume 83 [ foz_us] 80-99 Automated erythrocyte mean corpuscular h emoglobin (mass per erythrocyte) 28 pg 25-34 Automated erythrocyte mean corpuscular h emoglobin concentration measurement (mass/volume) 33 g/dL 32-36 Automated erythrocyte distribution width ratio 13. 8 % 10.0- 14.5 Automated blood platelet count (count/volume) 286 10*3/uL [...] 10*3 1.0-4.0 Blood monocytes automated count (number/volume) 0. 5 10*3 0.0-1.0 Automated eosinophil count 0.2 10*3/uL 0 .0-0.3 Automated blood basophil count (count/volume) 0.0 10*3/uL 0.0-0.1 Comprehensive metabolic panel - 04/14/16 20:55 Serum or plasma sodium measurement (moles/volume) 141 mmol/L 135-145 Serum or plasma potassium measurement (moles/volume) 3.5 mmol/L 3.6-5.0 Serum or plasma chloride measurement (moles/volume) 110 mmol/L 98-107 Carbon dioxide 19 mmol/L 21-32 Serum or plasma anion gap determination (moles/volume) 12 mmol/L 5-14 Serum or plasma urea nitrogen measurement (mass/volume ) 9 mg/dL 7-18 Serum or plasma creatinine measurement (mass/volume) 0.86 mg/dL 0.60-1.30 Serum or plasma urea nitrogen/creatinine mass ratio 10 NRG Serum or plasma creatinine measurement w ith calculation of estimated glomerular filtration rate > NRG Serum or plasma glucose measurement (mass/volume) 102 mg/dL 70-105 Serum or plasma calcium measurement (mass/volume) 9.0 mg/dL 8.5-10.1 Serum or plasma total bilirubin measurement (mass/volu me) 0.3 mg/dL 0.1-1.0 Serum or plasma alkaline phosphatase vicki surement (enzymatic activity/volume) 85 U/L 40-136 Serum or plasma aspartate aminotransfera se measurement (enzymatic activity/volume) 21 U/L 5-34 Serum or plasma alanine aminotransferase measurement (enzymatic activity/volume) 15 U/L 0-55 Serum or plasma protein measurement (mass/volume) 7.0 g/dL 6.4-8.2 Serum or plasma albumin measurement (mass/volume) 4.3 g/dL 3.2-4.5 THYROID STIMULATING HORMONE - 04/14/16 2 0:55 THYROID STIMULATING HORMONE 5.34 u[iU]/mL 0.35-4.94 Serum or plasma ethanol measurement (mas s/volume) - 04/14/16 20:55 Serum or plasma ethanol measurement (mass/volume) < mg/dL <10 LITHIUM LEVEL - 04/14/16 20:55 [place] [mass/volume] in serum or plasma 0.5 % 0.5-1.5 CBC With Differential/Platelet - 7 08:22 WBC 4.7 x10E3/uL 3.4-10.8 RBC 4.99 x10E6/uL 3.77-5.28 Hemoglobin 13.3 g/dL 11.1-15.9 Hematocrit 41.4 % 34.0-46.6 MCV 83 fL 79-97 MCH 26.7 pg 26.6-33.0 MCHC 32.1 g/dL 31.5-35.7 RDW 14.1 % 12.3-15.4 Platelets 259 x10E3/uL 150-379 Neutrophils 50 % Lymphs 38 % Monocytes 6 % Eos 5 % Basos 0 % Neutrophils (Absolute) 2.4 x10E3/uL 1.4- 7.0 Lymphs (Absolute) 1.8 x10E3/uL 0.7-3.1 Monocytes(Absolute) 0.3 x10E3/uL 0.1-0.9 Eos (Absolute) 0.2 x10E3/uL 0.0-0.4 Baso (Absolute) 0.0 x10E3/uL 0.0-0.2 Immature Granulocytes 1 % Immature Grans (Abs) 0.0 x10E3/uL 0.0-0. 1 Comp. Metabolic Panel (14) - 06/07/16 08 :22 Glucose, Serum 95 mg/dL 65-99 BUN 9 mg/dL 6-20 Creatinine, Serum 0.74 mg/dL 0.57-1.00 eGFR If NonAfricn Am 116 mL/min/1.73 >59 eGFR If Africn Am 134 mL/min/1.73 >5 9 BUN/Creatinine Ratio 12 9-23 Sodium, Serum 142 [...] 5-40 LDL Cholesterol Calc 93 mg/dL 0-99 [place] (Eskalith(R)), Serum - 06/07/16 08:22 [place] (Eskalith(R)), Serum 0.5 mmol/L 0.6-1.2 Complete blood count (CBC) with automate d white blood cell (WBC) differential - 07/19/16 13:19 Blood leukocytes automated count (number/volume) 7.7 10*3/uL 4.3-11.0 Blood erythrocytes automated count (number/volume) 4.97 10*6/uL 4.35-5.85 Venous blood hemoglobin measurement (mass/volume) 13.2 g/dL 11.5-16.0 Blood hematocrit (volume fraction) 41 % 35-52 Automated erythrocyte mean corpuscular volume 83 [ foz_us] 80-99 Automated erythrocyte mean corpuscular h emoglobin (mass per erythrocyte) 27 pg 25-34 Automated erythrocyte mean corpuscular h emoglobin concentration measurement (mass/volume) 32 g/dL 32-36 Automated erythrocyte distribution width ratio 14. 1 % 10.0- 14.5 Automated blood platelet count (count/volume) 303 10*3/uL [...] 10*3 1.0-4.0 Blood monocytes automated count (number/volume) 0. 5 10*3 0.0-1.0 Automated eosinophil count 0.2 10*3/uL 0 .0-0.3 Automated blood basophil count (count/volume) 0.0 10*3/uL 0.0-0.1 Serum or plasma choriogonadotropin (preg lisa test) detection - 07/19/16 13:19 Serum or plasma choriogonadotropin ( test) de tection NEGATIVE NEGATIVE Comprehensive metabolic panel - 07/19/16 13:19 Serum or plasma sodium measurement (moles/volume) 139 mmol/L 135-145 Serum or plasma potassium measurement (moles/volume) 3.7 mmol/L 3.6-5.0 Serum or plasma chloride measurement (moles/volume) 109 mmol/L 98-107 Carbon dioxide 22 mmol/L 21-32 Serum or plasma anion gap determination (moles/volume) 8 mmol/L 5-14 Serum or plasma urea nitrogen measurement (mass/volume ) 7 mg/dL 7-18 Serum or plasma creatinine measurement (mass/volume) 0.76 mg/dL 0.60-1.30 Serum or plasma urea nitrogen/creatinine mass ratio 9 NRG Serum or plasma creatinine measurement w ith calculation of estimated glomerular filtration rate > NRG Serum or plasma glucose measurement (mass/volume) 80 mg/dL 70-105 Serum or plasma calcium measurement (mass/volume) 9.2 mg/dL 8.5-10.1 Serum or plasma total bilirubin measurement (mass/volu me) 0.3 mg/dL 0.1-1.0 Serum or plasma alkaline phosphatase vicki surement (enzymatic activity/volume) 82 U/L 40-136 Serum or plasma aspartate aminotransfera se measurement (enzymatic activity/volume) 21 U/L 5-34 Serum or plasma alanine aminotransferase measurement (enzymatic activity/volume) 19 U/L 0-55 Serum or plasma protein measurement (mass/volume) 7.3 g/dL 6.4-8.2 Serum or plasma albumin measurement (mass/volume) 4.5 g/dL 3.2-4.5 Serum or plasma thyrotropin measurement by detection limit <=0.05 miu/l (units/volume) - 07/19/16 13:19 Serum or plasma thyrotropin measurement by detection limit <=0.05 miu/l (units/volume) 2.53 u[iU]/mL 0.35-4.94 Serum or plasma salicylates measurement (mass/volume) - 07/19/16 13:19 Serum or plasma salicylates measurement (mass/volume) < mg/dL 5.0-20.0 Serum or plasma acetaminophen measuremen t (mass/volume) - 07/19/16 13:19 Serum or plasma acetaminophen measurement (mass/volume ) < ug/mL 10-30 Serum or plasma ethanol measurement (mas s/volume) - 07/19/16 13:19 Serum or plasma ethanol measurement (mass/volume) < mg/dL <10 Urine drug screening test - 07/19/16 13: 21 Urine phencyclidine detection by screening method NEGATIVE NEGATIVE Urine benzodiazepines detection by screening method NEGATIVE NEGATIVE Urine cocaine detection NEGATIVE NEGATI VE Urine amphetamines detection by screening method N EGATIVE NEGATIVE Urine methamphetamine detection by screening method NEGATIVE NEGATIVE Urine cannabinoids detection by screening method N EGATIVE NEGATIVE Urine opiates detection by screening method NEGATI VE NEGATIVE Urine barbiturates detection NEGATIVE N EGATIVE Screening urine tricyclic antidepressants detection NEGATIVE NEGATIVE Urine methadone detection by screening method NEGA TIVE NEGATIVE Urine oxycodone detection NEGATIVE NEGA TIVE Urine propoxyphene detection NEGATIVE N EGATIVE Complete urinalysis with reflex to cultu re - 07/19/16 13:21 Urine color determination YELLOW NRG Urine clarity determination SLIGHTLY CLOUDY NRG Urine pH measurement by test strip 8 5-9 Specific gravity of urine by test strip 1.015 1.016-1.022 Urine protein assay by test strip, semi-quantitative NEGATIVE NEGATIVE Urine glucose detection by automated test strip NE GATIVE NEGATIVE Erythrocytes detection in urine sediment by light micr oscopy NEGATIVE NEGATIVE Urine ketones detection by automated test strip NE GATIVE NEGATIVE Urine nitrite detection by test strip NEGATIVE NEGATIVE Urine total bilirubin detection by test strip NEGA TIVE NEGATIVE Urine urobilinogen measurement by automated test strip (mass/volume) NORMAL NORMAL Urine leukocyte esterase detection by dipstick NEG ATIVE NEGATIVE Automated urine sediment erythrocyte cou nt by microscopy (number/high power field) NONE NRG Automated urine sediment leukocyte count by microscopy (number/high power field) NONE NRG Bacteria detection in urine sediment by light microsco py NEGATIVE NRG Squamous epithelial cells detection in u rine sediment by light microscopy >50 NRG Crystals detection in urine sediment by light microsco py NONE NRG Casts detection in urine sediment by light microscopy NONE NRG Mucus detection in urine sediment by light microscopy NEGATIVE NRG Complete urinalysis with reflex to culture NO NRG Complete blood count (CBC) with automate d white blood cell (WBC) differential - 10/17/16 04:34 Blood leukocytes automated count (number/volume) 7.8 10*3/uL 4.3-11.0 Blood erythrocytes automated count (number/volume) 4.76 10*6/uL 4.35-5.85 Venous blood hemoglobin measurement (mass/volume) 12.5 g/dL 11.5-16.0 Blood hematocrit (volume fraction) 39 % 35-52 Automated erythrocyte mean corpuscular volume 82 [ foz_us] 80-99 Automated erythrocyte mean corpuscular h emoglobin (mass per erythrocyte) 26 pg 25-34 Automated erythrocyte mean corpuscular h emoglobin concentration measurement (mass/volume) 32 g/dL 32-36 Automated erythrocyte distribution width ratio 14. 8 % 10.0- 14.5 Automated blood platelet count (count/volume) 297 10*3/uL [...] 10*3 1.0-4.0 Blood monocytes automated count (number/volume) 0. 4 10*3 0.0-1.0 Automated eosinophil count 0.2 10*3/uL 0 .0-0.3 Automated blood basophil count (count/volume) 0.0 10*3/uL 0.0-0.1 Serum or plasma choriogonadotropin (preg lisa test) detection - 10/17/16 04:34 Serum or plasma choriogonadotropin ( test) de tection NEGATIVE NEGATIVE Whole blood basic metabolic panel - 10/01 09/16 04:34 Serum or plasma sodium measurement (moles/volume) 139 mmol/L 135-145 Serum or plasma potassium measurement (moles/volume) 3.7 mmol/L 3.6-5.0 Serum or plasma chloride measurement (moles/volume) 108 mmol/L 98-107 Carbon dioxide 23 mmol/L 21-32 Serum or plasma anion gap determination (moles/volume) 8 mmol/L 5-14 Serum or plasma urea nitrogen measurement (mass/volume ) 9 mg/dL 7-18 Serum or plasma creatinine measurement (mass/volume) 0.75 mg/dL 0.60-1.30 Serum or plasma urea nitrogen/creatinine mass ratio 12 NRG Serum or plasma creatinine measurement w ith calculation of estimated glomerular filtration rate > NRG Serum or plasma glucose measurement (mass/volume) 105 mg/dL 70-105 Serum or plasma calcium measurement (mass/volume) 8.8 mg/dL 8.5-10.1 Serum or plasma ethanol measurement (mas s/volume) - 10/17/16 04:34 Serum or plasma ethanol measurement (mass/volume) < mg/dL <10 LITHIUM LEVEL - 10/17/16 04:34 [place] [mass/volume] in serum or plasma 0.6 % 0.5-1.5 Urine drug screening test - 10/17/16 05: 19 Urine phencyclidine detection by screening method NEGATIVE NEGATIVE Urine benzodiazepines detection by screening method NEGATIVE NEGATIVE Urine cocaine detection NEGATIVE NEGATI VE Urine amphetamines detection by screening method N EGATIVE NEGATIVE Urine methamphetamine detection by screening method NEGATIVE NEGATIVE Urine cannabinoids detection by screening method N EGATIVE NEGATIVE Urine opiates detection by screening method NEGATI VE NEGATIVE Urine barbiturates detection NEGATIVE N EGATIVE Screening urine tricyclic antidepressants detection NEGATIVE NEGATIVE Urine methadone detection by screening method NEGA TIVE NEGATIVE Urine oxycodone detection NEGATIVE NEGA TIVE Urine propoxyphene detection NEGATIVE N EGATIVE Complete blood count (CBC) with automate d white blood cell (WBC) differential - 12/22/16 22:50 Blood leukocytes automated count (number/volume) 10.7 10*3/uL 4.3-11.0 Blood erythrocytes automated count (number/volume) 5.05 10*6/uL 4.35-5.85 Venous blood hemoglobin measurement (mass/volume) 13.3 g/dL 11.5-16.0 Blood hematocrit (volume fraction) 41 % 35-52 Automated erythrocyte mean corpuscular volume 81 [ foz_us] 80-99 Automated erythrocyte mean corpuscular h emoglobin (mass per erythrocyte) 26 pg 25-34 Automated erythrocyte mean corpuscular h emoglobin concentration measurement (mass/volume) 32 g/dL 32-36 Automated erythrocyte distribution width ratio 14. 2 % 10.0- 14.5 Automated blood platelet count (count/volume) 280 10*3/uL [...] 10*3 1.0-4.0 Blood monocytes automated count (number/volume) 0. 6 10*3 0.0-1.0 Automated eosinophil count 0.3 10*3/uL 0 .0-0.3 Automated blood basophil count (count/volume) 0.0 10*3/uL 0.0-0.1 Serum or plasma choriogonadotropin (preg lisa test) detection - 12/22/16 22:50 Serum or plasma choriogonadotropin ( test) de tection NEGATIVE NEGATIVE Comprehensive metabolic panel - 12/22/16 22:50 Serum or plasma sodium measurement (moles/volume) 138 mmol/L 135-145 Serum or plasma potassium measurement (moles/volume) 3.8 mmol/L 3.6-5.0 Serum or plasma chloride measurement (moles/volume) 105 mmol/L 98-107 Carbon dioxide 24 mmol/L 21-32 Serum or plasma anion gap determination (moles/volume) 9 mmol/L 5-14 Serum or plasma urea nitrogen measurement (mass/volume ) 8 mg/dL 7-18 Serum or plasma creatinine measurement (mass/volume) 0.78 mg/dL 0.60-1.30 Serum or plasma urea nitrogen/creatinine mass ratio 10 NRG Serum or plasma creatinine measurement w ith calculation of estimated glomerular filtration rate > NRG Serum or plasma glucose measurement (mass/volume) 93 mg/dL 70-105 Serum or plasma calcium measurement (mass/volume) 9.7 mg/dL 8.5-10.1 Serum or plasma total bilirubin measurement (mass/volu me) 0.4 mg/dL 0.1-1.0 Serum or plasma alkaline phosphatase vicki surement (enzymatic activity/volume) 93 U/L 40-136 Serum or plasma aspartate aminotransfera se measurement (enzymatic activity/volume) 23 U/L 5-34 Serum or plasma alanine aminotransferase measurement (enzymatic activity/volume) 21 U/L 0-55 Serum or plasma protein measurement (mass/volume) 7.9 g/dL 6.4-8.2 Serum or plasma albumin measurement (mass/volume) 4.5 g/dL 3.2-4.5 Magnesium - 12/22/16 22:50 Magnesium 2.5 mg/dL 1.8-2.4 THYROID STIMULATING HORMONE - 12/22/16 2 2:50 THYROID STIMULATING HORMONE 3.72 u[iU]/mL 0.35-4.94 Serum or plasma thyroxine (T4) free [place] ure[place] (mass/volume) - 12/22/16 22:50 Serum or plasma thyroxine (T4) free measurement (mass/ volume) 0.95 ng/dL 0.70-1.48 Serum or plasma salicylates measurement (mass/volume) - 12/22/16 22:50 Serum or plasma salicylates measurement (mass/volume) < mg/dL 5.0-20.0 Serum or plasma acetaminophen measuremen t (mass/volume) - 12/22/16 22:50 Serum or plasma acetaminophen measurement (mass/volume ) < ug/mL 10-30 Serum or plasma ethanol measurement (mas s/volume) - 12/22/16 22:50 Serum or plasma ethanol measurement (mass/volume) < mg/dL <10 LITHIUM LEVEL - 12/22/16 22:50 [place] [mass/volume] in serum or plasma 0.6 % 0.5-1.5 Complete urinalysis with reflex to cultu re - 12/22/16 22:55 Urine color determination YELLOW NRG Urine clarity determination SLIGHTLY CLOUDY NRG Urine pH measurement by test strip 7 5-9 Specific gravity of urine by test strip 1.010 1.016-1.022 Urine protein assay by test strip, semi-quantitative NEGATIVE NEGATIVE Urine glucose detection by automated test strip NE GATIVE NEGATIVE Erythrocytes detection in urine sediment by light micr oscopy NEGATIVE NEGATIVE Urine ketones detection by automated test strip NE GATIVE NEGATIVE Urine nitrite detection by test strip NEGATIVE NEGATIVE Urine total bilirubin detection by test strip NEGA TIVE NEGATIVE Urine urobilinogen measurement by automated test strip (mass/volume) NORMAL NORMAL Urine leukocyte esterase detection by dipstick 2+ NEGATIVE Automated urine sediment erythrocyte cou nt by microscopy (number/high power field) NONE NRG Automated urine sediment leukocyte count by microscopy (number/high power field) [HPF] NRG Bacteria detection in urine sediment by light microsco py TRACE NRG Squamous epithelial cells detection in u rine sediment by light microscopy >50 NRG Crystals detection in urine sediment by light microsco py NONE NRG Casts detection in urine sediment by light microscopy NONE NRG Mucus detection in urine sediment by light microscopy NEGATIVE NRG Complete urinalysis with reflex to culture NO NRG Urine drug screening test - 12/22/16 22: 55 Urine phencyclidine detection by screening method NEGATIVE NEGATIVE Urine benzodiazepines detection by screening method NEGATIVE NEGATIVE Urine cocaine detection NEGATIVE NEGATI VE Urine amphetamines detection by screening method N EGATIVE NEGATIVE Urine methamphetamine detection by screening method NEGATIVE NEGATIVE Urine cannabinoids detection by screening method N EGATIVE NEGATIVE Urine opiates detection by screening method NEGATI VE NEGATIVE Urine barbiturates detection NEGATIVE N EGATIVE Screening urine tricyclic antidepressants detection NEGATIVE NEGATIVE Urine methadone detection by screening method NEGA TIVE NEGATIVE Urine oxycodone detection NEGATIVE NEGA TIVE Urine propoxyphene detection NEGATIVE N EGATIVE Complete blood count (CBC) with automate d white blood cell (WBC) differential - 12/27/16 23:59 Blood leukocytes automated count (number/volume) 10.1 10*3/uL 4.3-11.0 Blood erythrocytes automated count (number/volume) 4.77 10*6/uL 4.35-5.85 Venous blood hemoglobin measurement (mass/volume) 12.6 g/dL 11.5-16.0 Blood hematocrit (volume fraction) 39 % 35-52 Automated erythrocyte mean corpuscular volume 81 [ foz_us] 80-99 Automated erythrocyte mean corpuscular h emoglobin (mass per erythrocyte) 26 pg 25-34 Automated erythrocyte mean corpuscular h emoglobin concentration measurement (mass/volume) 33 g/dL 32-36 Automated erythrocyte distribution width ratio 14. 5 % 10.0- 14.5 Automated blood platelet count (count/volume) 274 10*3/uL [...] 10*3 1.0-4.0 Blood monocytes automated count (number/volume) 0. 6 10*3 0.0-1.0 Automated eosinophil count 0.4 10*3/uL 0 .0-0.3 Automated blood basophil count (count/volume) 0.0 10*3/uL 0.0-0.1 Serum or plasma choriogonadotropin (preg lisa test) detection - 12/27/16 23:59 Serum or plasma choriogonadotropin ( test) de tection NEGATIVE NEGATIVE Comprehensive metabolic panel - 12/28/16 00:10 Serum or plasma sodium measurement (moles/volume) 138 mmol/L 135-145 Serum or plasma potassium measurement (moles/volume) 3.6 mmol/L 3.6-5.0 Serum or plasma chloride measurement (moles/volume) 107 mmol/L 98-107 Carbon dioxide 21 mmol/L 21-32 Serum or plasma anion gap determination (moles/volume) 10 mmol/L 5-14 Serum or plasma urea nitrogen measurement (mass/volume ) 8 mg/dL 7-18 Serum or plasma creatinine measurement (mass/volume) 0.77 mg/dL 0.60-1.30 Serum or plasma urea nitrogen/creatinine mass ratio 10 NRG Serum or plasma creatinine measurement w ith calculation of estimated glomerular filtration rate > NRG Serum or plasma glucose measurement (mass/volume) 83 mg/dL 70-105 Serum or plasma calcium measurement (mass/volume) 9.2 mg/dL 8.5-10.1 Serum or plasma total bilirubin measurement (mass/volu me) 0.3 mg/dL 0.1-1.0 Serum or plasma alkaline phosphatase vicki surement (enzymatic activity/volume) 81 U/L 40-136 Serum or plasma aspartate aminotransfera se measurement (enzymatic activity/volume) 21 U/L 5-34 Serum or plasma alanine aminotransferase measurement (enzymatic activity/volume) 19 U/L 0-55 Serum or plasma protein measurement (mass/volume) 6.9 g/dL 6.4-8.2 Serum or plasma albumin measurement (mass/volume) 4.1 g/dL 3.2-4.5 Magnesium - 12/28/16 00:10 Magnesium 2.3 mg/dL 1.8-2.4 Serum or plasma thyrotropin measurement by detection limit <=0.05 miu/l (units/volume) - 12/28/16 00:10 Serum or plasma thyrotropin measurement by detection limit <=0.05 miu/l (units/volume) 4.00 u[iU]/mL 0.35-4.94 Serum or plasma salicylates measurement (mass/volume) - 12/28/16 00:10 Serum or plasma salicylates measurement (mass/volume) < mg/dL 5.0-20.0 Serum or plasma acetaminophen measuremen t (mass/volume) - 12/28/16 00:10 Serum or plasma acetaminophen measurement (mass/volume ) < ug/mL 10-30 Serum or plasma ethanol measurement (mas s/volume) - 12/28/16 00:10 Serum or plasma ethanol measurement (mass/volume) < mg/dL <10 LITHIUM LEVEL - 12/28/16 00:10 [place] [mass/volume] in serum or plasma 1.47 H 0.60-1.40 Complete urinalysis with reflex to cultu re - 12/28/16 01:43 Urine color determination YELLOW NRG Urine clarity determination SLIGHTLY CLOUDY NRG Urine pH measurement by test strip 7 5-9 Specific gravity of urine by test strip 1.005 1.016-1.022 Urine protein assay by test strip, semi-quantitative 1+ NEGATIVE Urine glucose detection by automated test strip NE GATIVE NEGATIVE Erythrocytes detection in urine sediment by light micr oscopy 1+ NEGATIVE Urine ketones detection by automated test strip NE GATIVE NEGATIVE Urine nitrite detection by test strip NEGATIVE NEGATIVE Urine total bilirubin detection by test strip NEGA TIVE NEGATIVE Urine urobilinogen measurement by automated test strip (mass/volume) NORMAL NORMAL Urine leukocyte esterase detection by dipstick 2+ NEGATIVE Automated urine sediment erythrocyte cou nt by microscopy (number/high power field) RARE NRG Automated urine sediment leukocyte count by microscopy (number/high power field) [HPF] NRG Bacteria detection in urine sediment by light microsco py LARGE NRG Squamous epithelial cells detection in u rine sediment by light microscopy 25-50 NRG Crystals detection in urine sediment by light microsco py NONE NRG Casts detection in urine sediment by light microscopy NONE NRG Mucus detection in urine sediment by light microscopy NEGATIVE NRG Complete urinalysis with reflex to culture YES NRG Urine drug screening test - 12/28/16 01: 43 Urine phencyclidine detection by screening method NEGATIVE NEGATIVE Urine benzodiazepines detection by screening method NEGATIVE NEGATIVE Urine cocaine detection NEGATIVE NEGATI VE Urine amphetamines detection by screening method N EGATIVE NEGATIVE Urine methamphetamine detection by screening method NEGATIVE NEGATIVE Urine cannabinoids detection by screening method N EGATIVE NEGATIVE Urine opiates detection by screening method NEGATI VE NEGATIVE Urine barbiturates detection NEGATIVE N EGATIVE Screening urine tricyclic antidepressants detection NEGATIVE NEGATIVE Urine methadone detection by screening method NEGA TIVE NEGATIVE Urine oxycodone detection NEGATIVE NEGA TIVE Urine propoxyphene detection NEGATIVE N EGATIVE Bacterial urine culture - 12/28/16 01:43 URINE CULTURE RESULTS 10,000/ML - 100,000/ML NRG Methicillin resistant Staphylococcus aur eus (MRSA) screening culture - 12/28/16 03:30 Methicillin resistant Staphylococcus aureus (MRSA) scr eening culture NEG NRG Complete blood count (CBC) with automate d white blood cell (WBC) differential - 12/28/16 03:36 Blood leukocytes automated count (number/volume) 10.9 10*3/uL 4.3-11.0 Blood erythrocytes automated count (number/volume) 4.65 10*6/uL 4.35-5.85 Venous blood hemoglobin measurement (mass/volume) 12.5 g/dL 11.5-16.0 Blood hematocrit (volume fraction) 38 % 35-52 Automated erythrocyte mean corpuscular volume 82 [ foz_us] 80-99 Automated erythrocyte mean corpuscular h emoglobin (mass per erythrocyte) 27 pg 25-34 Automated erythrocyte mean corpuscular h emoglobin concentration measurement (mass/volume) 33 g/dL 32-36 Automated erythrocyte distribution width ratio 14. 4 % 10.0- 14.5 Automated blood platelet count (count/volume) 284 10*3/uL [...] 10*3 1.0-4.0 Blood monocytes automated count (number/volume) 0. 6 10*3 0.0-1.0 Automated eosinophil count 0.2 10*3/uL 0 .0-0.3 Automated blood basophil count (count/volume) 0.0 10*3/uL 0.0-0.1 Whole blood basic metabolic panel - 12/02 10/17 03:36 Serum or plasma sodium measurement (moles/volume) 140 mmol/L 135-145 Serum or plasma potassium measurement (moles/volume) 3.6 mmol/L 3.6-5.0 Serum or plasma chloride measurement (moles/volume) 109 mmol/L 98-107 Carbon dioxide 22 mmol/L 21-32 Serum or plasma anion gap determination (moles/volume) 9 mmol/L 5-14 Serum or plasma urea nitrogen measurement (mass/volume ) 7 mg/dL 7-18 Serum or plasma creatinine measurement (mass/volume) 0.76 mg/dL 0.60-1.30 Serum or plasma urea nitrogen/creatinine mass ratio 9 NRG Serum or plasma creatinine measurement w ith calculation of estimated glomerular filtration rate > NRG Serum or plasma glucose measurement (mass/volume) 82 mg/dL 70-105 Serum or plasma calcium measurement (mass/volume) 9.4 mg/dL 8.5-10.1 Serum or plasma phosphate measurement (m ass/volume) - 12/28/16 03:36 Serum or plasma phosphate measurement (mass/volume) 2.4 mg/dL 2.3-4.7 Magnesium - 12/28/16 03:36 Magnesium 2.3 mg/dL 1.8-2.4 LITHIUM LEVEL - 12/28/16 05:11 [place] [mass/volume] in serum or plasma 1.34 mmol /L 0.60- 1.40 LITHIUM LEVEL - 12/28/16 08:15 [place] [mass/volume] in serum or plasma 1.07 mmol /L 0.60- 1.40 Complete blood count (CBC) with automate d white blood cell (WBC) differential - 01/06/17 21:45 Blood leukocytes automated count (number/volume) 9.0 10*3/uL 4.3-11.0 Blood erythrocytes automated count (number/volume) 4.78 10*6/uL 4.35-5.85 Venous blood hemoglobin measurement (mass/volume) 12.6 g/dL 11.5-16.0 Blood hematocrit (volume fraction) 39 % 35-52 Automated erythrocyte mean corpuscular volume 81 [ foz_us] 80-99 Automated erythrocyte mean corpuscular h emoglobin (mass per erythrocyte) 26 pg 25-34 Automated erythrocyte mean corpuscular h emoglobin concentration measurement (mass/volume) 33 g/dL 32-36 Automated erythrocyte distribution width ratio 14. 4 % 10.0- 14.5 Automated blood platelet count (count/volume) 306 10*3/uL [...] 10*3 1.0-4.0 Blood monocytes automated count (number/volume) 0. 8 10*3 0.0-1.0 Automated eosinophil count 0.2 10*3/uL 0 .0-0.3 Automated blood basophil count (count/volume) 0.0 10*3/uL 0.0-0.1 Comprehensive metabolic panel - 01/06/17 21:45 Serum or plasma sodium measurement (moles/volume) 140 mmol/L 135-145 Serum or plasma potassium measurement (moles/volume) 3.5 mmol/L 3.6-5.0 Serum or plasma chloride measurement (moles/volume) 106 mmol/L 98-107 Carbon dioxide 24 mmol/L 21-32 Serum or plasma anion gap determination (moles/volume) 10 mmol/L 5-14 Serum or plasma urea nitrogen measurement (mass/volume ) 9 mg/dL 7-18 Serum or plasma creatinine measurement (mass/volume) 0.67 mg/dL 0.60-1.30 Serum or plasma urea nitrogen/creatinine mass ratio 13 NRG Serum or plasma creatinine measurement w ith calculation of estimated glomerular filtration rate > NRG Serum or plasma glucose measurement (mass/volume) 96 mg/dL 70-105 Serum or plasma calcium measurement (mass/volume) 9.5 mg/dL 8.5-10.1 Serum or plasma total bilirubin measurement (mass/volu me) 0.2 mg/dL 0.1-1.0 Serum or plasma alkaline phosphatase vicki surement (enzymatic activity/volume) 86 U/L 40-136 Serum or plasma aspartate aminotransfera se measurement (enzymatic activity/volume) 14 U/L 5-34 Serum or plasma alanine aminotransferase measurement (enzymatic activity/volume) 12 U/L 0-55 Serum or plasma protein measurement (mass/volume) 6.8 g/dL 6.4-8.2 Serum or plasma albumin measurement (mass/volume) 4.2 g/dL 3.2-4.5 Serum or plasma thyrotropin measurement by detection limit <=0.05 miu/l (units/volume) - 01/06/17 21:45 Serum or plasma thyrotropin measurement by detection limit <=0.05 miu/l (units/volume) 3.98 u[iU]/mL 0.35-4.94 Serum or plasma salicylates measurement (mass/volume) - 01/06/17 21:45 Serum or plasma salicylates measurement (mass/volume) < mg/dL 5.0-20.0 Serum or plasma acetaminophen measuremen t (mass/volume) - 01/06/17 21:45 Serum or plasma acetaminophen measurement (mass/volume ) < ug/mL 10-30 Serum or plasma ethanol measurement (mas s/volume) - 01/06/17 21:45 Serum or plasma ethanol measurement (mass/volume) < mg/dL <10 Valproic acid - 01/06/17 21:45 Valproic acid 48.4 ug/mL 50.0-100.0 Complete urinalysis with reflex to cultu re - 01/06/17 22:38 Urine color determination YELLOW NRG Urine clarity determination CLEAR NR G Urine pH measurement by test strip 7 5-9 Specific gravity of urine by test strip 1.010 1.016-1.022 Urine protein assay by test strip, semi-quantitative NEGATIVE NEGATIVE Urine glucose detection by automated test strip NE GATIVE NEGATIVE Erythrocytes detection in urine sediment by light micr oscopy 1+ NEGATIVE Urine ketones detection by automated test strip NE GATIVE NEGATIVE Urine nitrite detection by test strip NEGATIVE NEGATIVE Urine total bilirubin detection by test strip NEGA TIVE NEGATIVE Urine urobilinogen measurement by automated test strip (mass/volume) NORMAL NORMAL Urine leukocyte esterase detection by dipstick 2+ NEGATIVE Automated urine sediment erythrocyte cou nt by microscopy (number/high power field) RARE NRG Automated urine sediment leukocyte count by microscopy (number/high power field) [HPF] NRG Bacteria detection in urine sediment by light microsco py FEW NRG Squamous epithelial cells detection in u rine sediment by light microscopy 10-25 NRG Crystals detection in urine sediment by light microsco py NONE NRG Casts detection in urine sediment by light microscopy NONE NRG Mucus detection in urine sediment by light microscopy NEGATIVE NRG Complete urinalysis with reflex to culture YES NRG Urine drug screening test - 01/06/17 22: 38 Urine phencyclidine detection by screening method NEGATIVE NEGATIVE Urine benzodiazepines detection by screening method NEGATIVE NEGATIVE Urine cocaine detection NEGATIVE NEGATI VE Urine amphetamines detection by screening method N EGATIVE NEGATIVE Urine methamphetamine detection by screening method NEGATIVE NEGATIVE Urine cannabinoids detection by screening method N EGATIVE NEGATIVE Urine opiates detection by screening method NEGATI VE NEGATIVE Urine barbiturates detection NEGATIVE N EGATIVE Screening urine tricyclic antidepressants detection NEGATIVE NEGATIVE Urine methadone detection by screening method NEGA TIVE NEGATIVE Urine oxycodone detection NEGATIVE NEGA TIVE Urine propoxyphene detection NEGATIVE N EGATIVE Bacterial urine culture - 01/06/17 22:38 URINE CULTURE RESULTS <10,000/ML NRG CULTURE, GENITAL - 01/17/17 19:51 CULTURE, GENITAL SEE NOTE NRG Complete urinalysis with reflex to cultu re - 01/29/17 01:20 Urine color determination YELLOW NRG Urine clarity determination SLIGHTLY CLOUDY NRG Urine pH measurement by test strip 6.5 5-9 Specific gravity of urine by test strip 1.015 1.016-1.022 Urine protein assay by test strip, semi-quantitative NEGATIVE NEGATIVE Urine glucose detection by automated test strip NE GATIVE NEGATIVE Erythrocytes detection in urine sediment by light micr oscopy 1+ NEGATIVE Urine ketones detection by automated test strip 1+ NEGATIVE Urine nitrite detection by test strip NEGATIVE NEGATIVE Urine total bilirubin detection by test strip NEGA TIVE NEGATIVE Urine urobilinogen measurement by automated test strip (mass/volume) 1 mg/dL NORMAL Urine leukocyte esterase detection by dipstick NEG ATIVE NEGATIVE Automated urine sediment erythrocyte cou nt by microscopy (number/high power field) RARE NRG Automated urine sediment leukocyte count by microscopy (number/high power field) NONE NRG Bacteria detection in urine sediment by light microsco py TRACE NRG Squamous epithelial cells detection in u rine sediment by light microscopy 0-2 NRG Crystals detection in urine sediment by light microsco py PRESENT NRG Casts detection in urine sediment by light microscopy NONE NRG Mucus detection in urine sediment by light microscopy SMALL NRG Complete urinalysis with reflex to culture NO NRG Amorphous sediment detection in urine sediment by ligh t microscopy MOD PRICILA URATES NRG Urine beta human chorionic gonadotropin (hCG) measurement - 01/29/17 01:20 Urine beta human chorionic gonadotropin (hCG) measurem ent NEGATIVE NEGATIVE Urine drug screening test - 01/29/17 01: 20 Urine phencyclidine detection by screening method NEGATIVE NEGATIVE Urine benzodiazepines detection by screening method NEGATIVE NEGATIVE Urine cocaine detection NEGATIVE NEGATI VE Urine amphetamines detection by screening method N EGATIVE NEGATIVE Urine methamphetamine detection by screening method NEGATIVE NEGATIVE Urine cannabinoids detection by screening method N EGATIVE NEGATIVE Urine opiates detection by screening method NEGATI VE NEGATIVE Urine barbiturates detection NEGATIVE N EGATIVE Screening urine tricyclic antidepressants detection NEGATIVE NEGATIVE Urine methadone detection by screening method NEGA TIVE NEGATIVE Urine oxycodone detection NEGATIVE NEGA TIVE Urine propoxyphene detection NEGATIVE N EGATIVE Complete blood count (CBC) with automate d white blood cell (WBC) differential - 01/29/17 02:20 Blood leukocytes automated count (number/volume) 8.2 10*3/uL 4.3-11.0 Blood erythrocytes automated count (number/volume) 5.04 10*6/uL 4.35-5.85 Venous blood hemoglobin measurement (mass/volume) 13.1 g/dL 11.5-16.0 Blood hematocrit (volume fraction) 41 % 35-52 Automated erythrocyte mean corpuscular volume 82 [ foz_us] 80-99 Automated erythrocyte mean corpuscular h emoglobin (mass per erythrocyte) 26 pg 25-34 Automated erythrocyte mean corpuscular h emoglobin concentration measurement (mass/volume) 32 g/dL 32-36 Automated erythrocyte distribution width ratio 14. 9 % 10.0- 14.5 Automated blood platelet count (count/volume) 267 10*3/uL [...] 10*3 1.0-4.0 Blood monocytes automated count (number/volume) 1. 0 10*3 0.0-1.0 Automated eosinophil count 0.3 10*3/uL 0 .0-0.3 Automated blood basophil count (count/volume) 0.1 10*3/uL 0.0-0.1 Comprehensive metabolic panel - 01/29/17 02:20 Serum or plasma sodium measurement (moles/volume) 139 mmol/L 135-145 Serum or plasma potassium measurement (moles/volume) 3.7 mmol/L 3.6-5.0 Serum or plasma chloride measurement (moles/volume) 107 mmol/L 98-107 Carbon dioxide 22 mmol/L 21-32 Serum or plasma anion gap determination (moles/volume) 10 mmol/L 5-14 Serum or plasma urea nitrogen measurement (mass/volume ) 9 mg/dL 7-18 Serum or plasma creatinine measurement (mass/volume) 0.70 mg/dL 0.60-1.30 Serum or plasma urea nitrogen/creatinine mass ratio 13 NRG Serum or plasma creatinine measurement w ith calculation of estimated glomerular filtration rate > NRG Serum or plasma glucose measurement (mass/volume) 95 mg/dL 70-105 Serum or plasma calcium measurement (mass/volume) 8.9 mg/dL 8.5-10.1 Serum or plasma total bilirubin measurement (mass/volu me) 0.2 mg/dL 0.1-1.0 Serum or plasma alkaline phosphatase vicki surement (enzymatic activity/volume) 79 U/L 40-136 Serum or plasma aspartate aminotransfera se measurement (enzymatic activity/volume) 18 U/L 5-34 Serum or plasma alanine aminotransferase measurement (enzymatic activity/volume) 15 U/L 0-55 Serum or plasma protein measurement (mass/volume) 7.0 g/dL 6.4-8.2 Serum or plasma albumin measurement (mass/volume) 4.0 g/dL 3.2-4.5 Serum or plasma salicylates measurement (mass/volume) - 01/29/17 02:20 Serum or plasma salicylates measurement (mass/volume) < mg/dL 5.0-20.0 Serum or plasma acetaminophen measuremen t (mass/volume) - 01/29/17 02:20 Serum or plasma acetaminophen measurement (mass/volume ) < ug/mL 10-30 Serum or plasma ethanol measurement (mas s/volume) - 01/29/17 02:20 Serum or plasma ethanol measurement (mass/volume) < mg/dL <10 Serum or plasma thyrotropin measurement by detection limit <=0.05 miu/l (units/volume) - 01/29/17 02:20 Serum or plasma thyrotropin measurement by detection limit <=0.05 miu/l (units/volume) 2.82 u[iU]/mL 0.35-4.94 Complete urinalysis with reflex to cultu re - 05/20/17 02:25 Urine color determination YELLOW NRG Urine clarity determination CLEAR NR G Urine pH measurement by test strip 7 5-9 Specific gravity of urine by test strip 1.010 1.016-1.022 Urine protein assay by test strip, semi-quantitative NEGATIVE NEGATIVE Urine glucose detection by automated test strip NE GATIVE NEGATIVE Erythrocytes detection in urine sediment by light micr oscopy NEGATIVE NEGATIVE Urine ketones detection by automated test strip NE GATIVE NEGATIVE Urine nitrite detection by test strip NEGATIVE NEGATIVE Urine total bilirubin detection by test strip NEGA TIVE NEGATIVE Urine urobilinogen measurement by automated test strip (mass/volume) NORMAL NORMAL Urine leukocyte esterase detection by dipstick NEG ATIVE NEGATIVE Automated urine sediment erythrocyte cou nt by microscopy (number/high power field) NONE NRG Automated urine sediment leukocyte count by microscopy (number/high power field) NONE NRG Bacteria detection in urine sediment by light microsco py TRACE NRG Squamous epithelial cells detection in u rine sediment by light microscopy 5-10 NRG Crystals detection in urine sediment by light microsco py NONE NRG Casts detection in urine sediment by light microscopy NONE NRG Mucus detection in urine sediment by light microscopy NEGATIVE NRG Complete urinalysis with reflex to culture NO NRG Urine drug screening test - 05/20/17 02: 25 Urine phencyclidine detection by screening method NEGATIVE NEGATIVE Urine benzodiazepines detection by screening method NEGATIVE NEGATIVE Urine cocaine detection NEGATIVE NEGATI VE Urine amphetamines detection by screening method N EGATIVE NEGATIVE Urine methamphetamine detection by screening method NEGATIVE NEGATIVE Urine cannabinoids detection by screening method N EGATIVE NEGATIVE Urine opiates detection by screening method NEGATI VE NEGATIVE Urine barbiturates detection NEGATIVE N EGATIVE Screening urine tricyclic antidepressants detection NEGATIVE NEGATIVE Urine methadone detection by screening method NEGA TIVE NEGATIVE Urine oxycodone detection NEGATIVE NEGA TIVE Urine propoxyphene detection NEGATIVE N EGATIVE Complete blood count (CBC) with automate d white blood cell (WBC) differential - 05/20/17 03:30 Blood leukocytes automated count (number/volume) 8.0 10*3/uL 4.3-11.0 Blood erythrocytes automated count (number/volume) 4.72 10*6/uL 4.35-5.85 Venous blood hemoglobin measurement (mass/volume) 13.1 g/dL 11.5-16.0 Blood hematocrit (volume fraction) 39 % 35-52 Automated erythrocyte mean corpuscular volume 84 [ foz_us] 80-99 Automated erythrocyte mean corpuscular h emoglobin (mass per erythrocyte) 28 pg 25-34 Automated erythrocyte mean corpuscular h emoglobin concentration measurement (mass/volume) 33 g/dL 32-36 Automated erythrocyte distribution width ratio 15. 8 % 10.0- 14.5 Automated blood platelet count (count/volume) 244 10*3/uL [...] 10*3 1.0-4.0 Blood monocytes automated count (number/volume) 1. 1 10*3 0.0-1.0 Automated eosinophil count 0.2 10*3/uL 0 .0-0.3 Automated blood basophil count (count/volume) 0.0 10*3/uL 0.0-0.1 Serum or plasma choriogonadotropin (preg lisa test) detection - 05/20/17 03:30 Serum or plasma choriogonadotropin ( test) de tection NEGATIVE NEGATIVE Comprehensive metabolic panel - 05/20/17 03:30 Serum or plasma sodium measurement (moles/volume) 139 mmol/L 135-145 Serum or plasma potassium measurement (moles/volume) 3.9 mmol/L 3.6-5.0 Serum or plasma chloride measurement (moles/volume) 106 mmol/L 98-107 Carbon dioxide 21 mmol/L 21-32 Serum or plasma anion gap determination (moles/volume) 12 mmol/L 5-14 Serum or plasma urea nitrogen measurement (mass/volume ) 13 mg/dL 7-18 Serum or plasma creatinine measurement (mass/volume) 0.68 mg/dL 0.60-1.30 Serum or plasma urea nitrogen/creatinine mass ratio 19 NRG Serum or plasma creatinine measurement w ith calculation of estimated glomerular filtration rate > NRG Serum or plasma glucose measurement (mass/volume) 79 mg/dL 70-105 Serum or plasma calcium measurement (mass/volume) 9.3 mg/dL 8.5-10.1 Serum or plasma total bilirubin measurement (mass/volu me) 0.4 mg/dL 0.1-1.0 Serum or plasma alkaline phosphatase vicki surement (enzymatic activity/volume) 79 U/L 40-136 Serum or plasma aspartate aminotransfera se measurement (enzymatic activity/volume) 41 U/L 5-34 Serum or plasma alanine aminotransferase measurement (enzymatic activity/volume) 45 U/L 0-55 Serum or plasma protein measurement (mass/volume) 6.5 g/dL 6.4-8.2 Serum or plasma albumin measurement (mass/volume) 4.0 g/dL 3.2-4.5 Serum or plasma thyrotropin measurement by detection limit <=0.05 miu/l (units/volume) - 05/20/17 03:30 Serum or plasma thyrotropin measurement by detection limit <=0.05 miu/l (units/volume) 2.10 u[iU]/mL 0.35-4.94 Serum or plasma salicylates measurement (mass/volume) - 05/20/17 03:30 Serum or plasma salicylates measurement (mass/volume) < mg/dL 5.0-20.0 Serum or plasma acetaminophen measuremen t (mass/volume) - 05/20/17 03:30 Serum or plasma acetaminophen measurement (mass/volume ) < ug/mL 10-30 [id number] - 05/20/17 03:30 [id number] 75.4 ug/mL 50.0-100.0 Serum or plasma ethanol measurement (mas s/volume) - 05/20/17 03:30 Serum or plasma ethanol measurement (mass/volume) < mg/dL <10 Complete blood count (CBC) with automate d white blood cell (WBC) differential - 09/20/17 04:35 Blood leukocytes automated count (number/volume) 7.2 10*3/uL 4.3-11.0 Blood erythrocytes automated count (number/volume) 4.81 10*6/uL 4.35-5.85 Venous blood hemoglobin measurement (mass/volume) 12.7 g/dL 11.5-16.0 Blood hematocrit (volume fraction) 38 % 35-52 Automated erythrocyte mean corpuscular volume 78 [ foz_us] 80-99 Automated erythrocyte mean corpuscular h emoglobin (mass per erythrocyte) 26 pg 25-34 Automated erythrocyte mean corpuscular h emoglobin concentration measurement (mass/volume) 34 g/dL 32-36 Automated erythrocyte distribution width ratio 15. 0 % 10.0- 14.5 Automated blood platelet count (count/volume) 296 10*3/uL 130-400 Automated blood platelet mean volume measurement 9.9 [foz_us] 7.4-10.4 Automated blood neutrophils/100 leukocytes 55 % 42-75 Automated blood lymphocytes/100 leukocytes 32 % 12-44 Blood monocytes/100 leukocytes 9 % 0-12 Automated blood eosinophils/100 leukocytes 3 % 0-10 Automated blood basophils/100 leukocytes 0 % 0-10 Blood neutrophils automated count (number/volume) 4.0 10*3 1.8-7.8 Blood lymphocytes automated count (number/volume) 2.3 10*3 1.0-4.0 Blood monocytes automated count (number/volume) 0. 7 10*3 0.0-1.0 Automated eosinophil count 0.2 10*3/uL 0 .0-0.3 Automated blood basophil count (count/volume) 0.0 10*3/uL 0.0-0.1 Comprehensive metabolic panel - 09/20/17 04:35 Serum or plasma sodium measurement (moles/volume) 139 mmol/L 135-145 Serum or plasma potassium measurement (moles/volume) 3.5 mmol/L 3.6-5.0 Serum or plasma chloride measurement (moles/volume) 109 mmol/L 98-107 Carbon dioxide 20 mmol/L 21-32 Serum or plasma anion gap determination (moles/volume) 10 mmol/L 5-14 Serum or plasma urea nitrogen measurement (mass/volume ) 11 mg/dL 7-18 Serum or plasma creatinine measurement (mass/volume) 0.69 mg/dL 0.60-1.30 Serum or plasma urea nitrogen/creatinine mass ratio 16 NRG Serum or plasma creatinine measurement w ith calculation of estimated glomerular filtration rate > NRG Serum or plasma glucose measurement (mass/volume) 93 mg/dL 70-105 Serum or plasma calcium measurement (mass/volume) 9.3 mg/dL 8.5-10.1 Serum or plasma total bilirubin measurement (mass/volu me) 0.5 mg/dL 0.1-1.0 Serum or plasma alkaline phosphatase ivcki surement (enzymatic activity/volume) 96 U/L 40-136 Serum or plasma aspartate aminotransfera se measurement (enzymatic activity/volume) 86 U/L 5-34 Serum or plasma alanine aminotransferase measurement (enzymatic activity/volume) 78 U/L 0-55 Serum or plasma protein measurement (mass/volume) 6.6 g/dL 6.4-8.2 Serum or plasma albumin measurement (mass/volume) 4.0 g/dL 3.2-4.5 Serum or plasma thyrotropin measurement by detection limit <=0.05 miu/l (units/volume) - 09/20/17 04:35 Serum or plasma thyrotropin measurement by detection limit <=0.05 miu/l (units/volume) 3.66 u[iU]/mL 0.35-4.94 Serum or plasma salicylates measurement (mass/volume) - 09/20/17 04:35 Serum or plasma salicylates measurement (mass/volume) < mg/dL 5.0-20.0 Serum or plasma acetaminophen measuremen t (mass/volume) - 09/20/17 04:35 Serum or plasma acetaminophen measurement (mass/volume ) < ug/mL 10-30 [id number] - 09/20/17 04:35 [id number] 39.2 ug/mL 50.0-100.0 Serum or plasma ethanol measurement (mas s/volume) - 09/20/17 04:35 Serum or plasma ethanol measurement (mass/volume) < mg/dL <10 Acute hepatitis panel - 09/20/17 04:35 Confirmatory quantitative serum or plasm a hepatitis B virus surface antigen measurement Non-Reactive Non-Reactive Hepatitis A virus IgM antibody assay Non-Reactive Non- Reactive Hepatitis B virus core IgM antibody assay Non-Reac tive Non- Reactive Serum hepatitis C virus antibody detection Non-Mildred ctive Non-Reactive Complete urinalysis with reflex to cultu re - 09/20/17 05:33 Urine color determination YELLOW NRG Urine clarity determination CLEAR NR G Urine pH measurement by test strip 6.5 5-9 Specific gravity of urine by test strip 1.020 1.016-1.022 Urine protein assay by test strip, semi-quantitative NEGATIVE NEGATIVE Urine glucose detection by automated test strip NE GATIVE NEGATIVE Erythrocytes detection in urine sediment by light micr oscopy 1+ NEGATIVE Urine ketones detection by automated test strip NE GATIVE NEGATIVE Urine nitrite detection by test strip NEGATIVE NEGATIVE Urine total bilirubin detection by test strip NEGA TIVE NEGATIVE Urine urobilinogen measurement by automated test strip (mass/volume) NORMAL NORMAL Urine leukocyte esterase detection by dipstick NEG ATIVE NEGATIVE Automated urine sediment erythrocyte cou nt by microscopy (number/high power field) [HPF] NRG Automated urine sediment leukocyte count by microscopy (number/high power field) NONE NRG Bacteria detection in urine sediment by light microsco py NEGATIVE NRG Squamous epithelial cells detection in u rine sediment by light microscopy 2-5 NRG Crystals detection in urine sediment by light microsco py NONE NRG Casts detection in urine sediment by light microscopy NONE NRG Mucus detection in urine sediment by light microscopy NEGATIVE NRG Complete urinalysis with reflex to culture NO NRG Urine drug screening test - 09/20/17 05: 33 Urine phencyclidine detection by screening method NEGATIVE NEGATIVE Urine benzodiazepines detection by screening method POSITIVE NEGATIVE Urine cocaine detection NEGATIVE NEGATI VE Urine amphetamines detection by screening method N EGATIVE NEGATIVE Urine methamphetamine detection by screening method NEGATIVE NEGATIVE Urine cannabinoids detection by screening method N EGATIVE NEGATIVE Urine opiates detection by screening method NEGATI VE NEGATIVE Urine barbiturates detection NEGATIVE N EGATIVE Screening urine tricyclic antidepressants detection NEGATIVE NEGATIVE Urine methadone detection by screening method NEGA TIVE NEGATIVE Urine oxycodone detection NEGATIVE NEGA TIVE Urine propoxyphene detection NEGATIVE N EGATIVE Urine beta human chorionic gonadotropin (hCG) measurement - 09/20/17 05:33 Urine beta human chorionic gonadotropin (hCG) measurem ent NEGATIVE NEGATIVE Complete urinalysis with reflex to cultu re - 01/11/18 21:55 Urine color determination YELLOW NRG Urine clarity determination CLEAR NR G Urine pH measurement by test strip 7 5-9 Specific gravity of urine by test strip 1.010 1.016-1.022 Urine protein assay by test strip, semi-quantitative NEGATIVE NEGATIVE Urine glucose detection by automated test strip NE GATIVE NEGATIVE Erythrocytes detection in urine sediment by light micr oscopy 1+ NEGATIVE Urine ketones detection by automated test strip 1+ NEGATIVE Urine nitrite detection by test strip NEGATIVE NEGATIVE Urine total bilirubin detection by test strip NEGA TIVE NEGATIVE Urine urobilinogen measurement by automated test strip (mass/volume) NORMAL NORMAL Urine leukocyte esterase detection by dipstick NEG ATIVE NEGATIVE Automated urine sediment erythrocyte cou nt by microscopy (number/high power field) [HPF] NRG Automated urine sediment leukocyte count by microscopy (number/high power field) [HPF] NRG Bacteria detection in urine sediment by light microsco py FEW NRG Squamous epithelial cells detection in u rine sediment by light microscopy 10-25 NRG Crystals detection in urine sediment by light microsco py NONE NRG Casts detection in urine sediment by light microscopy NONE NRG Mucus detection in urine sediment by light microscopy NEGATIVE NRG Complete urinalysis with reflex to culture NO NRG Urine drug screening test - 01/11/18 21: 55 Urine phencyclidine detection by screening method NEGATIVE NEGATIVE Urine benzodiazepines detection by screening method NEGATIVE NEGATIVE Urine cocaine detection NEGATIVE NEGATI VE Urine amphetamines detection by screening method N EGATIVE NEGATIVE Urine methamphetamine detection by screening method NEGATIVE NEGATIVE Urine cannabinoids detection by screening method N EGATIVE NEGATIVE Urine opiates detection by screening method NEGATI VE NEGATIVE Urine barbiturates detection NEGATIVE N EGATIVE Screening urine tricyclic antidepressants detection NEGATIVE NEGATIVE Urine methadone detection by screening method NEGA TIVE NEGATIVE Urine oxycodone detection NEGATIVE NEGA TIVE Urine propoxyphene detection NEGATIVE N EGATIVE Complete blood count (CBC) with automate d white blood cell (WBC) differential - 01/11/18 22:23 Blood leukocytes automated count (number/volume) 7.8 10*3/uL 4.3-11.0 Blood erythrocytes automated count (number/volume) 4.51 10*6/uL 4.35-5.85 Venous blood hemoglobin measurement (mass/volume) 11.5 g/dL 11.5-16.0 Blood hematocrit (volume fraction) 36 % 35-52 Automated erythrocyte mean corpuscular volume 79 [ foz_us] 80-99 Automated erythrocyte mean corpuscular h emoglobin (mass per erythrocyte) 26 pg 25-34 Automated erythrocyte mean corpuscular h emoglobin concentration measurement (mass/volume) 32 g/dL 32-36 Automated erythrocyte distribution width ratio 15. 1 % 10.0- 14.5 Automated blood platelet count (count/volume) 250 10*3/uL 130-400 Automated blood platelet mean volume measurement 9.9 [foz_us] 7.4-10.4 Automated blood neutrophils/100 leukocytes 58 % 42-75 Automated blood lymphocytes/100 leukocytes 29 % 12-44 Blood monocytes/100 leukocytes 10 % 0-12 Automated blood eosinophils/100 leukocytes 3 % 0-10 Automated blood basophils/100 leukocytes 0 % 0-10 Blood neutrophils automated count (number/volume) 4.5 10*3 1.8-7.8 Blood lymphocytes automated count (number/volume) 2.3 10*3 1.0-4.0 Blood monocytes automated count (number/volume) 0. 8 10*3 0.0-1.0 Automated eosinophil count 0.2 10*3/uL 0 .0-0.3 Automated blood basophil count (count/volume) 0.0 10*3/uL 0.0-0.1 Comprehensive metabolic panel - 01/11/18 22:23 Serum or plasma sodium measurement (moles/volume) 139 mmol/L 135-145 Serum or plasma potassium measurement (moles/volume) 3.9 mmol/L 3.6-5.0 Serum or plasma chloride measurement (moles/volume) 106 mmol/L 98-107 Carbon dioxide 20 mmol/L 21-32 Serum or plasma anion gap determination (moles/volume) 13 mmol/L 5-14 Serum or plasma urea nitrogen measurement (mass/volume ) 9 mg/dL 7-18 Serum or plasma creatinine measurement (mass/volume) 0.64 mg/dL 0.60-1.30 Serum or plasma urea nitrogen/creatinine mass ratio 14 NRG Serum or plasma creatinine measurement w ith calculation of estimated glomerular filtration rate > NRG Serum or plasma glucose measurement (mass/volume) 115 mg/dL 70-105 Serum or plasma calcium measurement (mass/volume) 9.0 mg/dL 8.5-10.1 Serum or plasma total bilirubin measurement (mass/volu me) 0.3 mg/dL 0.1-1.0 Serum or plasma alkaline phosphatase vicki surement (enzymatic activity/volume) 104 U/L 40-136 Serum or plasma aspartate aminotransfera se measurement (enzymatic activity/volume) 43 U/L 5-34 Serum or plasma alanine aminotransferase measurement (enzymatic activity/volume) 48 U/L 0-55 Serum or plasma protein measurement (mass/volume) 6.5 g/dL 6.4-8.2 Serum or plasma albumin measurement (mass/volume) 3.9 g/dL 3.2-4.5 CALCIUM CORRECTED 9.1 mg/dL 8.5-10.1 Serum or plasma thyrotropin measurement by detection limit <=0.05 miu/l (units/volume) - 01/11/18 22:23 Serum or plasma thyrotropin measurement by detection limit <=0.05 miu/l (units/volume) 1.98 u[iU]/mL 0.35-4.94 Serum or plasma salicylates measurement (mass/volume) - 01/11/18 22:23 Serum or plasma salicylates measurement (mass/volume) < mg/dL 5.0-20.0 Serum or plasma acetaminophen measuremen t (mass/volume) - 01/11/18 22:23 Serum or plasma acetaminophen measurement (mass/volume ) < ug/mL 10-30 [id number] - 01/11/18 22:23 [id number] 79.9 ug/mL 50.0-100.0 Serum or plasma ethanol measurement (mas s/volume) - 01/11/18 22:23 Serum or plasma ethanol measurement (mass/volume) < mg/dL <10 Complete blood count (CBC) with automate d white blood cell (WBC) differential - 01/23/18 16:29 Blood leukocytes automated count (number/volume) 6.9 10*3/uL 4.3-11.0 Blood erythrocytes automated count (number/volume) 4.97 10*6/uL 4.35-5.85 Venous blood hemoglobin measurement (mass/volume) 12.4 g/dL 11.5-16.0 Blood hematocrit (volume fraction) 39 % 35-52 Automated erythrocyte mean corpuscular volume 79 [ foz_us] 80-99 Automated erythrocyte mean corpuscular h emoglobin (mass per erythrocyte) 25 pg 25-34 Automated erythrocyte mean corpuscular h emoglobin concentration measurement (mass/volume) 32 g/dL 32-36 Automated erythrocyte distribution width ratio 15. 5 % 10.0- 14.5 Automated blood platelet count (count/volume) 307 10*3/uL 130-400 Automated blood platelet mean volume measurement 10.1 [foz_us] 7.4-10.4 Automated blood neutrophils/100 leukocytes 61 % 42-75 Automated blood lymphocytes/100 leukocytes 28 % 12-44 Blood monocytes/100 leukocytes 9 % 0-12 Automated blood eosinophils/100 leukocytes 2 % 0-10 Automated blood basophils/100 leukocytes 0 % 0-10 Blood neutrophils automated count (number/volume) 4.2 10*3 1.8-7.8 Blood lymphocytes automated count (number/volume) 1.9 10*3 1.0-4.0 Blood monocytes automated count (number/volume) 0. 7 10*3 0.0-1.0 Automated eosinophil count 0.1 10*3/uL 0 .0-0.3 Automated blood basophil count (count/volume) 0.0 10*3/uL 0.0-0.1 Serum or plasma choriogonadotropin (preg lisa test) detection - 01/23/18 16:29 Serum or plasma choriogonadotropin ( test) de tection NEGATIVE NEGATIVE Comprehensive metabolic panel - 01/23/18 16:29 Serum or plasma sodium measurement (moles/volume) 137 mmol/L 135-145 Serum or plasma potassium measurement (moles/volume) 3.8 mmol/L 3.6-5.0 Serum or plasma chloride measurement (moles/volume) 104 mmol/L 98-107 Carbon dioxide 22 mmol/L 21-32 Serum or plasma anion gap determination (moles/volume) 11 mmol/L 5-14 Serum or plasma urea nitrogen measurement (mass/volume ) 9 mg/dL 7-18 Serum or plasma creatinine measurement (mass/volume) 0.72 mg/dL 0.60-1.30 Serum or plasma urea nitrogen/creatinine mass ratio 13 NRG Serum or plasma creatinine measurement w ith calculation of estimated glomerular filtration rate > NRG Serum or plasma glucose measurement (mass/volume) 108 mg/dL 70-105 Serum or plasma calcium measurement (mass/volume) 9.1 mg/dL 8.5-10.1 Serum or plasma total bilirubin measurement (mass/volu me) 0.4 mg/dL 0.1-1.0 Serum or plasma alkaline phosphatase vicki surement (enzymatic activity/volume) 122 U/L 40-136 Serum or plasma aspartate aminotransfera se measurement (enzymatic activity/volume) 63 U/L 5-34 Serum or plasma alanine aminotransferase measurement (enzymatic activity/volume) 61 U/L 0-55 Serum or plasma protein measurement (mass/volume) 6.8 g/dL 6.4-8.2 Serum or plasma albumin measurement (mass/volume) 4.1 g/dL 3.2-4.5 CALCIUM CORRECTED 9.0 mg/dL 8.5-10.1 THYROID STIMULATING HORMONE - 01/23/18 1 6:29 THYROID STIMULATING HORMONE 2.09 u[iU]/mL 0.35-4.94 Serum or plasma thyroxine (T4) free [place] urement (mass/volume) - 01/23/18 16:29 Serum or plasma thyroxine (T4) free measurement (mass/ volume) 1.00 ng/dL 0.70-1.48 Serum or plasma salicylates measurement (mass/volume) - 01/23/18 16:29 Serum or plasma salicylates measurement (mass/volume) < mg/dL 5.0-20.0 Serum or plasma acetaminophen measuremen t (mass/volume) - 01/23/18 16:29 Serum or plasma acetaminophen measurement (mass/volume ) < ug/mL 10-30 Serum or plasma ethanol measurement (mas s/volume) - 01/23/18 16:29 Serum or plasma ethanol measurement (mass/volume) < mg/dL <10 Complete urinalysis with reflex to cultu re - 01/23/18 16:40 Urine color determination YELLOW NRG Urine clarity determination CLEAR NR G Urine pH measurement by test strip 7 5-9 Specific gravity of urine by test strip 1.010 1.016-1.022 Urine protein assay by test strip, semi-quantitative NEGATIVE NEGATIVE Urine glucose detection by automated test strip NE GATIVE NEGATIVE Erythrocytes detection in urine sediment by light micr oscopy 1+ NEGATIVE Urine ketones detection by automated test strip NE GATIVE NEGATIVE Urine nitrite detection by test strip NEGATIVE NEGATIVE Urine total bilirubin detection by test strip NEGA TIVE NEGATIVE Urine urobilinogen measurement by automated test strip (mass/volume) NORMAL NORMAL Urine leukocyte esterase detection by dipstick NEG ATIVE NEGATIVE Automated urine sediment erythrocyte cou nt by microscopy (number/high power field) [HPF] NRG Automated urine sediment leukocyte count by microscopy (number/high power field) NONE NRG Bacteria detection in urine sediment by light microsco py NEGATIVE NRG Squamous epithelial cells detection in u rine sediment by light microscopy 5-10 NRG Crystals detection in urine sediment by light microsco py NONE NRG Casts detection in urine sediment by light microscopy NONE NRG Mucus detection in urine sediment by light microscopy NEGATIVE NRG Complete urinalysis with reflex to culture NO NRG Urine drug screening test - 01/23/18 16: 40 Urine phencyclidine detection by screening method NEGATIVE NEGATIVE Urine benzodiazepines detection by screening method NEGATIVE NEGATIVE Urine cocaine detection NEGATIVE NEGATI VE Urine amphetamines detection by screening method N EGATIVE NEGATIVE Urine methamphetamine detection by screening method NEGATIVE NEGATIVE Urine cannabinoids detection by screening method N EGATIVE NEGATIVE Urine opiates detection by screening method NEGATI VE NEGATIVE Urine barbiturates detection NEGATIVE N EGATIVE Screening urine tricyclic antidepressants detection NEGATIVE NEGATIVE Urine methadone detection by screening method NEGA TIVE NEGATIVE Urine oxycodone detection NEGATIVE NEGA TIVE Urine propoxyphene detection NEGATIVE N EGATIVE Serum or plasma salicylates measurement (mass/volume) - 03/22/18 17:50 Serum or plasma salicylates measurement (mass/volume) < mg/dL 5.0-20.0 Serum or plasma acetaminophen measuremen t (mass/volume) - 03/22/18 17:50 Serum or plasma acetaminophen measurement (mass/volume ) < ug/mL 10-30 Serum or plasma ethanol measurement (mas s/volume) - 03/22/18 17:50 Serum or plasma ethanol measurement (mass/volume) < mg/dL <10 Complete blood count (CBC) with automate d white blood cell (WBC) differential - 03/22/18 17:50 Blood leukocytes automated count (number/volume) 6.7 10*3/uL 4.3-11.0 Blood erythrocytes automated count (number/volume) 4.73 10*6/uL 4.35-5.85 Venous blood hemoglobin measurement (mass/volume) 11.8 g/dL 11.5-16.0 Blood hematocrit (volume fraction) 38 % 35-52 Automated erythrocyte mean corpuscular volume 80 [ foz_us] 80-99 Automated erythrocyte mean corpuscular h emoglobin (mass per erythrocyte) 25 pg 25-34 Automated erythrocyte mean corpuscular h emoglobin concentration measurement (mass/volume) 31 g/dL 32-36 Automated erythrocyte distribution width ratio 15. 8 % 10.0- 14.5 Automated blood platelet count (count/volume) 288 10*3/uL 130-400 Automated blood platelet mean volume measurement 10.2 [foz_us] 7.4-10.4 Automated blood neutrophils/100 leukocytes 58 % 42-75 Automated blood lymphocytes/100 leukocytes 28 % 12-44 Blood monocytes/100 leukocytes 9 % 0-12 Automated blood eosinophils/100 leukocytes 4 % 0-10 Automated blood basophils/100 leukocytes 0 % 0-10 Blood neutrophils automated count (number/volume) 3.9 10*3 1.8-7.8 Blood lymphocytes automated count (number/volume) 1.9 10*3 1.0-4.0 Blood monocytes automated count (number/volume) 0. 6 10*3 0.0-1.0 Automated eosinophil count 0.3 10*3/uL 0 .0-0.3 Automated blood basophil count (count/volume) 0.0 10*3/uL 0.0-0.1 Serum or plasma choriogonadotropin (preg lisa test) detection - 03/22/18 17:50 Serum or plasma choriogonadotropin ( test) de tection NEGATIVE NEGATIVE Comprehensive metabolic panel - 03/22/18 17:50 Serum or plasma sodium measurement (moles/volume) 141 mmol/L 135-145 Serum or plasma potassium measurement (moles/volume) 3.9 mmol/L 3.6-5.0 Serum or plasma chloride measurement (moles/volume) 106 mmol/L 98-107 Carbon dioxide 23 mmol/L 21-32 Serum or plasma anion gap determination (moles/volume) 12 mmol/L 5-14 Serum or plasma urea nitrogen measurement (mass/volume ) 9 mg/dL 7-18 Serum or plasma creatinine measurement (mass/volume) 0.69 mg/dL 0.60-1.30 Serum or plasma urea nitrogen/creatinine mass ratio 13 NRG Serum or plasma creatinine measurement w ith calculation of estimated glomerular filtration rate > NRG Serum or plasma glucose measurement (mass/volume) 118 mg/dL 70-105 Serum or plasma calcium measurement (mass/volume) 9.2 mg/dL 8.5-10.1 Serum or plasma total bilirubin measurement (mass/volu me) 0.3 mg/dL 0.1-1.0 Serum or plasma alkaline phosphatase vicki surement (enzymatic activity/volume) 110 U/L 40-136 Serum or plasma aspartate aminotransfera se measurement (enzymatic activity/volume) 26 U/L 5-34 Serum or plasma alanine aminotransferase measurement (enzymatic activity/volume) 25 U/L 0-55 Serum or plasma protein measurement (mass/volume) 6.4 g/dL 6.4-8.2 Serum or plasma albumin measurement (mass/volume) 3.9 g/dL 3.2-4.5 CALCIUM CORRECTED 9.3 mg/dL 8.5-10.1 Serum or plasma thyrotropin measurement by detection limit <=0.05 miu/l (units/volume) - 03/22/18 17:50 Serum or plasma thyrotropin measurement by detection limit <=0.05 miu/l (units/volume) 3.04 u[iU]/mL 0.35-4.94 Serum or plasma thyroxine (T4) free [place] urement (mass/volume) - 03/22/18 17:50 Serum or plasma thyroxine (T4) free measurement (mass/ volume) 1.03 ng/dL 0.70-1.48 [id number] - 03/22/18 17:50 [id number] 26.1 ug/mL 50.0-100.0 Complete urinalysis with reflex to cultu re - 03/22/18 17:54 Urine color determination YELLOW NRG Urine clarity determination SLIGHTLY CLOUDY NRG Urine pH measurement by test strip 7 5-9 Specific gravity of urine by test strip 1.010 1.016-1.022 Urine protein assay by test strip, semi-quantitative NEGATIVE NEGATIVE Urine glucose detection by automated test strip NE GATIVE NEGATIVE Erythrocytes detection in urine sediment by light micr oscopy 3+ NEGATIVE Urine ketones detection by automated test strip NE GATIVE NEGATIVE Urine nitrite detection by test strip NEGATIVE NEGATIVE Urine total bilirubin detection by test strip NEGA TIVE NEGATIVE Urine urobilinogen measurement by automated test strip (mass/volume) NORMAL NORMAL Urine leukocyte esterase detection by dipstick 1+ NEGATIVE Automated urine sediment erythrocyte cou nt by microscopy (number/high power field) [HPF] NRG Automated urine sediment leukocyte count by microscopy (number/high power field) [HPF] NRG Bacteria detection in urine sediment by light microsco py MODERATE NRG Squamous epithelial cells detection in u rine sediment by light microscopy 5-10 NRG Crystals detection in urine sediment by light microsco py PRESENT NRG Casts detection in urine sediment by light microscopy NONE NRG Mucus detection in urine sediment by light microscopy NEGATIVE NRG Complete urinalysis with reflex to culture NO NRG Amorphous sediment detection in urine sediment by ligh t microscopy FEW PRICILA URATES NRG Urine drug screening test - 03/22/18 17: 54 Urine phencyclidine detection by screening method NEGATIVE NEGATIVE Urine benzodiazepines detection by screening method NEGATIVE NEGATIVE Urine cocaine detection NEGATIVE NEGATI VE Urine amphetamines detection by screening method N EGATIVE NEGATIVE Urine methamphetamine detection by screening method NEGATIVE NEGATIVE Urine cannabinoids detection by screening method N EGATIVE NEGATIVE Urine opiates detection by screening method NEGATI VE NEGATIVE Urine barbiturates detection NEGATIVE N EGATIVE Screening urine tricyclic antidepressants detection NEGATIVE NEGATIVE Urine methadone detection by screening method NEGA TIVE NEGATIVE Urine oxycodone detection NEGATIVE NEGA TIVE Urine propoxyphene detection NEGATIVE N EGATIVE VALPROIC ACID LEVEL, TOTAL - 03/24/18 05 :19 VALPROIC ACID(DEPAKENE) 21 ug/mL 50-100 HEMOGLOBIN A1C - 03/26/18 05:37 HEMOGLOBIN A1C 5.8 % <5.7 Complete urinalysis with reflex to cultu re - 04/15/18 18:41 Urine color determination YELLOW NRG Urine clarity determination CLEAR NR G Urine pH measurement by test strip 7 5-9 Specific gravity of urine by test strip 1.010 1.016-1.022 Urine protein assay by test strip, semi-quantitative NEGATIVE NEGATIVE Urine glucose detection by automated test strip NE GATIVE NEGATIVE Erythrocytes detection in urine sediment by light micr oscopy 1+ NEGATIVE Urine ketones detection by automated test strip NE GATIVE NEGATIVE Urine nitrite detection by test strip NEGATIVE NEGATIVE Urine total bilirubin detection by test strip NEGA TIVE NEGATIVE Urine urobilinogen measurement by automated test strip (mass/volume) NORMAL NORMAL Urine leukocyte esterase detection by dipstick NEG ATIVE NEGATIVE Automated urine sediment erythrocyte cou nt by microscopy (number/high power field) [HPF] NRG Automated urine sediment leukocyte count by microscopy (number/high power field) NONE NRG Bacteria detection in urine sediment by light microsco py NONE NRG Squamous epithelial cells detection in u rine sediment by light microscopy 2-5 NRG Crystals detection in urine sediment by light microsco py NONE NRG Casts detection in urine sediment by light microscopy NONE NRG Mucus detection in urine sediment by light microscopy NEGATIVE NRG Complete urinalysis with reflex to culture NO NRG Urine beta human chorionic gonadotropin (hCG) measurement - 04/15/18 18:41 Urine beta human chorionic gonadotropin (hCG) measurem ent NEGATIVE NEGATIVE Urine drug screening test - 04/15/18 18: 41 Urine phencyclidine detection by screening method NEGATIVE NEGATIVE Urine benzodiazepines detection by screening method NEGATIVE NEGATIVE Urine cocaine detection NEGATIVE NEGATI VE Urine amphetamines detection by screening method N EGATIVE NEGATIVE Urine methamphetamine detection by screening method NEGATIVE NEGATIVE Urine cannabinoids detection by screening method N EGATIVE NEGATIVE Urine opiates detection by screening method NEGATI VE NEGATIVE Urine barbiturates detection NEGATIVE N EGATIVE Screening urine tricyclic antidepressants detection NEGATIVE NEGATIVE Urine methadone detection by screening method NEGA TIVE NEGATIVE Urine oxycodone detection NEGATIVE NEGA TIVE Urine propoxyphene detection NEGATIVE N EGATIVE Complete blood count (CBC) with automate d white blood cell (WBC) differential - 04/15/18 20:29 Blood leukocytes automated count (number/volume) 7.0 10*3/uL 4.3-11.0 Blood erythrocytes automated count (number/volume) 4.89 10*6/uL 4.35-5.85 Venous blood hemoglobin measurement (mass/volume) 12.5 g/dL 11.5-16.0 Blood hematocrit (volume fraction) 39 % 35-52 Automated erythrocyte mean corpuscular volume 79 [ foz_us] 80-99 Automated erythrocyte mean corpuscular h emoglobin (mass per erythrocyte) 26 pg 25-34 Automated erythrocyte mean corpuscular h emoglobin concentration measurement (mass/volume) 32 g/dL 32-36 Automated erythrocyte distribution width ratio 15. 8 % 10.0- 14.5 Automated blood platelet count (count/volume) 298 10*3/uL 130-400 Automated blood platelet mean volume measurement 9.9 [foz_us] 7.4-10.4 Automated blood neutrophils/100 leukocytes 53 % 42-75 Automated blood lymphocytes/100 leukocytes 34 % 12-44 Blood monocytes/100 leukocytes 10 % 0-12 Automated blood eosinophils/100 leukocytes 2 % 0-10 Automated blood basophils/100 leukocytes 0 % 0-10 Blood neutrophils automated count (number/volume) 3.7 10*3 1.8-7.8 Blood lymphocytes automated count (number/volume) 2.4 10*3 1.0-4.0 Blood monocytes automated count (number/volume) 0. 7 10*3 0.0-1.0 Automated eosinophil count 0.2 10*3/uL 0 .0-0.3 Automated blood basophil count (count/volume) 0.0 10*3/uL 0.0-0.1 Comprehensive metabolic panel - 04/15/18 20:29 Serum or plasma sodium measurement (moles/volume) 138 mmol/L 135-145 Serum or plasma potassium measurement (moles/volume) 4.0 mmol/L 3.6-5.0 Serum or plasma chloride measurement (moles/volume) 105 mmol/L 98-107 Carbon dioxide 21 mmol/L 21-32 Serum or plasma anion gap determination (moles/volume) 12 mmol/L 5-14 Serum or plasma urea nitrogen measurement (mass/volume ) 9 mg/dL 7-18 Serum or plasma creatinine measurement (mass/volume) 0.72 mg/dL 0.60-1.30 Serum or plasma urea nitrogen/creatinine mass ratio 13 NRG Serum or plasma creatinine measurement w ith calculation of estimated glomerular filtration rate > NRG Serum or plasma glucose measurement (mass/volume) 83 mg/dL 70-105 Serum or plasma calcium measurement (mass/volume) 9.2 mg/dL 8.5-10.1 Serum or plasma total bilirubin measurement (mass/volu me) 0.3 mg/dL 0.1-1.0 Serum or plasma alkaline phosphatase vicki surement (enzymatic activity/volume) 109 U/L 40-136 Serum or plasma aspartate aminotransfera se measurement (enzymatic activity/volume) 44 U/L 5-34 Serum or plasma alanine aminotransferase measurement (enzymatic activity/volume) 38 U/L 0-55 Serum or plasma protein measurement (mass/volume) 7.0 g/dL 6.4-8.2 Serum or plasma albumin measurement (mass/volume) 4.1 g/dL 3.2-4.5 CALCIUM CORRECTED 9.1 mg/dL 8.5-10.1 THYROID STIMULATING HORMONE - 04/15/18 2 0:29 THYROID STIMULATING HORMONE 2.29 u[iU]/mL 0.35-4.94 Serum or plasma salicylates measurement (mass/volume) - 04/15/18 20:29 Serum or plasma salicylates measurement (mass/volume) < mg/dL 5.0-20.0 Serum or plasma acetaminophen measuremen t (mass/volume) - 04/15/18 20:29 Serum or plasma acetaminophen measurement (mass/volume ) < ug/mL 10-30 Serum or plasma ethanol measurement (mas s/volume) - 04/15/18 20:29 Serum or plasma ethanol measurement (mass/volume) < mg/dL <10 Urine beta human chorionic gonadotropin (hCG) measurement - 06/14/18 21:00 Urine beta human chorionic gonadotropin (hCG) measurem ent NEGATIVE NEGATIVE Complete urinalysis with reflex to cultu re - 06/14/18 21:00 Urine color determination YELLOW NRG Urine clarity determination SLIGHTLY CLOUDY NRG Urine pH measurement by test strip 7 5-9 Specific gravity of urine by test strip 1.010 1.016-1.022 Urine protein assay by test strip, semi-quantitative NEGATIVE NEGATIVE Urine glucose detection by automated test strip NE GATIVE NEGATIVE Erythrocytes detection in urine sediment by light micr oscopy 2+ NEGATIVE Urine ketones detection by automated test strip NE GATIVE NEGATIVE Urine nitrite detection by test strip NEGATIVE NEGATIVE Urine total bilirubin detection by test strip NEGA TIVE NEGATIVE Urine urobilinogen measurement by automated test strip (mass/volume) 1 mg/dL NORMAL Urine leukocyte esterase detection by dipstick 1+ NEGATIVE Automated urine sediment erythrocyte cou nt by microscopy (number/high power field) NONE NRG Automated urine sediment leukocyte count by microscopy (number/high power field) [HPF] NRG Bacteria detection in urine sediment by light microsco py TRACE NRG Squamous epithelial cells detection in u rine sediment by light microscopy 25-50 NRG Crystals detection in urine sediment by light microsco py NONE NRG Casts detection in urine sediment by light microscopy NONE NRG Mucus detection in urine sediment by light microscopy NEGATIVE NRG Complete urinalysis with reflex to culture NO NRG Amorphous sediment detection in urine sediment by ligh t microscopy FEW PRICILA URATES NRG Urine drug screening test - 06/14/18 21: 00 Urine phencyclidine detection by screening method NEGATIVE NEGATIVE Urine benzodiazepines detection by screening method POSITIVE NEGATIVE Urine cocaine detection NEGATIVE NEGATI VE Urine amphetamines detection by screening method N EGATIVE NEGATIVE Urine methamphetamine detection by screening method NEGATIVE NEGATIVE Urine cannabinoids detection by screening method N EGATIVE NEGATIVE Urine opiates detection by screening method NEGATI VE NEGATIVE Urine barbiturates detection NEGATIVE N EGATIVE Screening urine tricyclic antidepressants detection NEGATIVE NEGATIVE Urine methadone detection by screening method NEGA TIVE NEGATIVE Urine oxycodone detection NEGATIVE NEGA TIVE Urine propoxyphene detection NEGATIVE N EGATIVE Complete blood count (CBC) with automate d white blood cell (WBC) differential - 06/14/18 21:17 Blood leukocytes automated count (number/volume) 8.0 10*3/uL 4.3-11.0 Blood erythrocytes automated count (number/volume) 5.06 10*6/uL 4.35-5.85 Venous blood hemoglobin measurement (mass/volume) 12.8 g/dL 11.5-16.0 Blood hematocrit (volume fraction) 40 % 35-52 Automated erythrocyte mean corpuscular volume 79 [ foz_us] 80-99 Automated erythrocyte mean corpuscular h emoglobin (mass per erythrocyte) 25 pg 25-34 Automated erythrocyte mean corpuscular h emoglobin concentration measurement (mass/volume) 32 g/dL 32-36 Automated erythrocyte distribution width ratio 16. 1 % 10.0- 14.5 Automated blood platelet count (count/volume) 309 10*3/uL 130-400 Automated blood platelet mean volume measurement 10.6 [foz_us] 7.4-10.4 Automated blood neutrophils/100 leukocytes 55 % 42-75 Automated blood lymphocytes/100 leukocytes 36 % 12-44 Blood monocytes/100 leukocytes 7 % 0-12 Automated blood eosinophils/100 leukocytes 2 % 0-10 Automated blood basophils/100 leukocytes 0 % 0-10 Blood neutrophils automated count (number/volume) 4.4 10*3 1.8-7.8 Blood lymphocytes automated count (number/volume) 2.9 10*3 1.0-4.0 Blood monocytes automated count (number/volume) 0. 6 10*3 0.0-1.0 Automated eosinophil count 0.1 10*3/uL 0 .0-0.3 Automated blood basophil count (count/volume) 0.0 10*3/uL 0.0-0.1 Comprehensive metabolic panel - 06/14/18 21:17 Serum or plasma sodium measurement (moles/volume) 142 mmol/L 135-145 Serum or plasma potassium measurement (moles/volume) 4.2 mmol/L 3.6-5.0 Serum or plasma chloride measurement (moles/volume) 108 mmol/L 98-107 Carbon dioxide 22 mmol/L 21-32 Serum or plasma anion gap determination (moles/volume) 12 mmol/L 5-14 Serum or plasma urea nitrogen measurement (mass/volume ) 10 mg/dL 7-18 Serum or plasma creatinine measurement (mass/volume) 0.74 mg/dL 0.60-1.30 Serum or plasma urea nitrogen/creatinine mass ratio 14 NRG Serum or plasma creatinine measurement w ith calculation of estimated glomerular filtration rate > NRG Serum or plasma glucose measurement (mass/volume) 87 mg/dL 70-105 Serum or plasma calcium measurement (mass/volume) 9.4 mg/dL 8.5-10.1 Serum or plasma total bilirubin measurement (mass/volu me) 0.3 mg/dL 0.1-1.0 Serum or plasma alkaline phosphatase vicki surement (enzymatic activity/volume) 105 U/L 40-136 Serum or plasma aspartate aminotransfera se measurement (enzymatic activity/volume) 33 U/L 5-34 Serum or plasma alanine aminotransferase measurement (enzymatic activity/volume) 36 U/L 0-55 Serum or plasma protein measurement (mass/volume) 6.9 g/dL 6.4-8.2 Serum or plasma albumin measurement (mass/volume) 4.2 g/dL 3.2-4.5 CALCIUM CORRECTED 9.2 mg/dL 8.5-10.1 Serum or plasma salicylates measurement (mass/volume) - 06/14/18 21:17 Serum or plasma salicylates measurement (mass/volume) < mg/dL 5.0-20.0 Serum or plasma acetaminophen measuremen t (mass/volume) - 06/14/18 21:17 Serum or plasma acetaminophen measurement (mass/volume ) < ug/mL 10-30 Serum or plasma ethanol measurement (mas s/volume) - 06/14/18 21:17 Serum or plasma ethanol measurement (mass/volume) < mg/dL <10 Complete urinalysis with reflex to cultu re - 08/02/18 22:08 Urine color determination YELLOW NRG Urine clarity determination SL CLOUDY N RG Urine pH measurement by test strip 7 5-9 Specific gravity of urine by test strip 1.010 1.016-1.022 Urine protein assay by test strip, semi-quantitative NEGATIVE NEGATIVE Urine glucose detection by automated test strip NE GATIVE NEGATIVE Erythrocytes detection in urine sediment by light micr oscopy 2+ NEGATIVE Urine ketones detection by automated test strip NE GATIVE NEGATIVE Urine nitrite detection by test strip NEGATIVE NEGATIVE Urine total bilirubin detection by test strip NEGA TIVE NEGATIVE Urine urobilinogen measurement by automated test strip (mass/volume) 1 mg/dL NORMAL Urine leukocyte esterase detection by dipstick 1+ NEGATIVE Automated urine sediment erythrocyte cou nt by microscopy (number/high power field) RARE NRG Automated urine sediment leukocyte count by microscopy (number/high power field) RARE NRG Bacteria detection in urine sediment by light microsco py FEW NRG Squamous epithelial cells detection in u rine sediment by light microscopy 25-50 NRG Crystals detection in urine sediment by light microsco py NONE NRG Casts detection in urine sediment by light microscopy NONE NRG Mucus detection in urine sediment by light microscopy NEGATIVE NRG Complete urinalysis with reflex to culture NO NRG Urine drug screening test - 08/02/18 22: 08 Urine phencyclidine detection by screening method NEGATIVE NEGATIVE Urine benzodiazepines detection by screening method POSITIVE NEGATIVE Urine cocaine detection NEGATIVE NEGATI VE Urine amphetamines detection by screening method N EGATIVE NEGATIVE Urine methamphetamine detection by screening method NEGATIVE NEGATIVE Urine cannabinoids detection by screening method N EGATIVE NEGATIVE Urine opiates detection by screening method NEGATI VE NEGATIVE Urine barbiturates detection NEGATIVE N EGATIVE Screening urine tricyclic antidepressants detection NEGATIVE NEGATIVE Urine methadone detection by screening method NEGA TIVE NEGATIVE Urine oxycodone detection NEGATIVE NEGA TIVE Urine propoxyphene detection NEGATIVE N EGATIVE Urine beta human chorionic gonadotropin (hCG) measurement - 08/02/18 22:08 Urine beta human chorionic gonadotropin (hCG) measurem ent NEGATIVE NEGATIVE Complete blood count (CBC) with automate d white blood cell (WBC) differential - 08/02/18 22:30 Blood leukocytes automated count (number/volume) 7.7 10*3/uL 4.3-11.0 Blood erythrocytes automated count (number/volume) 4.87 10*6/uL 4.35-5.85 Venous blood hemoglobin measurement (mass/volume) 12.3 g/dL 11.5-16.0 Blood hematocrit (volume fraction) 38 % 35-52 Automated erythrocyte mean corpuscular volume 78 [ foz_us] 80-99 Automated erythrocyte mean corpuscular h emoglobin (mass per erythrocyte) 25 pg 25-34 Automated erythrocyte mean corpuscular h emoglobin concentration measurement (mass/volume) 32 g/dL 32-36 Automated erythrocyte distribution width ratio 15. 8 % 10.0- 14.5 Automated blood platelet count (count/volume) 281 10*3/uL 130-400 Automated blood platelet mean volume measurement 10.8 [foz_us] 7.4-10.4 Automated blood neutrophils/100 leukocytes 51 % 42-75 Automated blood lymphocytes/100 leukocytes 37 % 12-44 Blood monocytes/100 leukocytes 10 % 0-12 Automated blood eosinophils/100 leukocytes 1 % 0-10 Automated blood basophils/100 leukocytes 0 % 0-10 Blood neutrophils automated count (number/volume) 3.9 10*3 1.8-7.8 Blood lymphocytes automated count (number/volume) 2.8 10*3 1.0-4.0 Blood monocytes automated count (number/volume) 0. 8 10*3 0.0-1.0 Automated eosinophil count 0.1 10*3/uL 0 .0-0.3 Automated blood basophil count (count/volume) 0.0 10*3/uL 0.0-0.1 Comprehensive metabolic panel - 08/02/18 22:30 Serum or plasma sodium measurement (moles/volume) 139 mmol/L 135-145 Serum or plasma potassium measurement (moles/volume) 3.6 mmol/L 3.6-5.0 Serum or plasma chloride measurement (moles/volume) 107 mmol/L 98-107 Carbon dioxide 21 mmol/L 21-32 Serum or plasma anion gap determination (moles/volume) 11 mmol/L 5-14 Serum or plasma urea nitrogen measurement (mass/volume ) 10 mg/dL 7-18 Serum or plasma creatinine measurement (mass/volume) 0.76 mg/dL 0.60-1.30 Serum or plasma urea nitrogen/creatinine mass ratio 13 NRG Serum or plasma creatinine measurement w ith calculation of estimated glomerular filtration rate > NRG Serum or plasma glucose measurement (mass/volume) 84 mg/dL 70-105 Serum or plasma calcium measurement (mass/volume) 9.5 mg/dL 8.5-10.1 Serum or plasma total bilirubin measurement (mass/volu me) 0.3 mg/dL 0.1-1.0 Serum or plasma alkaline phosphatase vicki surement (enzymatic activity/volume) 105 U/L 40-136 Serum or plasma aspartate aminotransfera se measurement (enzymatic activity/volume) 28 U/L 5-34 Serum or plasma alanine aminotransferase measurement (enzymatic activity/volume) 41 U/L 0-55 Serum or plasma protein measurement (mass/volume) 6.5 g/dL 6.4-8.2 Serum or plasma albumin measurement (mass/volume) 4.0 g/dL 3.2-4.5 CALCIUM CORRECTED 9.5 mg/dL 8.5-10.1 Serum or plasma salicylates measurement (mass/volume) - 08/02/18 22:30 Serum or plasma salicylates measurement (mass/volume) < mg/dL 5.0-20.0 Serum or plasma acetaminophen measuremen t (mass/volume) - 08/02/18 22:30 Serum or plasma acetaminophen measurement (mass/volume ) < ug/mL 10-30 Serum or plasma ethanol measurement (mas s/volume) - 08/02/18 22:30 Serum or plasma ethanol measurement (mass/volume) < mg/dL <10 Complete urinalysis with reflex to cultu re - 09/01/18 00:05 Urine color determination YELLOW NRG Urine clarity determination CLEAR NR G Urine pH measurement by test strip 6 5-9 Specific gravity of urine by test strip 1.025 1.016-1.022 Urine protein assay by test strip, semi-quantitative 1+ NEGATIVE Urine glucose detection by automated test strip NE GATIVE NEGATIVE Erythrocytes detection in urine sediment by light micr oscopy 1+ NEGATIVE Urine ketones detection by automated test strip 1+ NEGATIVE Urine nitrite detection by test strip NEGATIVE NEGATIVE Urine total bilirubin detection by test strip NEGA TIVE NEGATIVE Urine urobilinogen measurement by automated test strip (mass/volume) 4 mg/dL NORMAL Urine leukocyte esterase detection by dipstick 1+ NEGATIVE Automated urine sediment erythrocyte cou nt by microscopy (number/high power field) [HPF] NRG Automated urine sediment leukocyte count by microscopy (number/high power field) RARE NRG Bacteria detection in urine sediment by light microsco py TRACE NRG Squamous epithelial cells detection in u rine sediment by light microscopy 10-25 NRG Crystals detection in urine sediment by light microsco py NONE NRG Casts detection in urine sediment by light microscopy NONE NRG Mucus detection in urine sediment by light microscopy MODERATE NRG Complete urinalysis with reflex to culture NO NRG Urine drug screening test - 09/01/18 00: 05 Urine phencyclidine detection by screening method NEGATIVE NEGATIVE Urine benzodiazepines detection by screening method POSITIVE NEGATIVE Urine cocaine detection NEGATIVE NEGATI VE Urine amphetamines detection by screening method N EGATIVE NEGATIVE Urine methamphetamine detection by screening method NEGATIVE NEGATIVE Urine cannabinoids detection by screening method N EGATIVE NEGATIVE Urine opiates detection by screening method NEGATI VE NEGATIVE Urine barbiturates detection NEGATIVE N EGATIVE Screening urine tricyclic antidepressants detection NEGATIVE NEGATIVE Urine methadone detection by screening method NEGA TIVE NEGATIVE Urine oxycodone detection NEGATIVE NEGA TIVE Urine propoxyphene detection NEGATIVE N EGATIVE Complete blood count (CBC) with automate d white blood cell (WBC) differential - 09/01/18 00:10 Blood leukocytes automated count (number/volume) 8.4 10*3/uL 4.3-11.0 Blood erythrocytes automated count (number/volume) 4.90 10*6/uL 4.35-5.85 Venous blood hemoglobin measurement (mass/volume) 12.6 g/dL 11.5-16.0 Blood hematocrit (volume fraction) 39 % 35-52 Automated erythrocyte mean corpuscular volume 80 [ foz_us] 80-99 Automated erythrocyte mean corpuscular h emoglobin (mass per erythrocyte) 26 pg 25-34 Automated erythrocyte mean corpuscular h emoglobin concentration measurement (mass/volume) 32 g/dL 32-36 Automated erythrocyte distribution width ratio 16. 0 % 10.0- 14.5 Automated blood platelet count (count/volume) 316 10*3/uL 130-400 Automated blood platelet mean volume measurement 9.9 [foz_us] 7.4-10.4 Automated blood neutrophils/100 leukocytes 56 % 42-75 Automated blood lymphocytes/100 leukocytes 30 % 12-44 Blood monocytes/100 leukocytes 11 % 0-12 Automated blood eosinophils/100 leukocytes 3 % 0-10 Automated blood basophils/100 leukocytes 0 % 0-10 Blood neutrophils automated count (number/volume) 4.7 10*3 1.8-7.8 Blood lymphocytes automated count (number/volume) 2.5 10*3 1.0-4.0 Blood monocytes automated count (number/volume) 0. 9 10*3 0.0-1.0 Automated eosinophil count 0.2 10*3/uL 0 .0-0.3 Automated blood basophil count (count/volume) 0.0 10*3/uL 0.0-0.1 Serum or plasma choriogonadotropin (preg lisa test) detection - 09/01/18 00:10 Serum or plasma choriogonadotropin ( test) de tection NEGATIVE NEGATIVE Comprehensive metabolic panel - 09/01/18 00:10 Serum or plasma sodium measurement (moles/volume) 141 mmol/L 135-145 Serum or plasma potassium measurement (moles/volume) 3.9 mmol/L 3.6-5.0 Serum or plasma chloride measurement (moles/volume) 105 mmol/L 98-107 Carbon dioxide 23 mmol/L 21-32 Serum or plasma anion gap determination (moles/volume) 13 mmol/L 5-14 Serum or plasma urea nitrogen measurement (mass/volume ) 10 mg/dL 7-18 Serum or plasma creatinine measurement (mass/volume) 0.81 mg/dL 0.60-1.30 Serum or plasma urea nitrogen/creatinine mass ratio 12 NRG Serum or plasma creatinine measurement w ith calculation of estimated glomerular filtration rate > NRG Serum or plasma glucose measurement (mass/volume) 82 mg/dL 70-105 Serum or plasma calcium measurement (mass/volume) 9.3 mg/dL 8.5-10.1 Serum or plasma total bilirubin measurement (mass/volu me) 0.4 mg/dL 0.1-1.0 Serum or plasma alkaline phosphatase vicki surement (enzymatic activity/volume) 97 U/L 40-136 Serum or plasma aspartate aminotransfera se measurement (enzymatic activity/volume) 33 U/L 5-34 Serum or plasma alanine aminotransferase measurement (enzymatic activity/volume) 52 U/L 0-55 Serum or plasma protein measurement (mass/volume) 6.9 g/dL 6.4-8.2 Serum or plasma albumin measurement (mass/volume) 4.1 g/dL 3.2-4.5 CALCIUM CORRECTED 9.2 mg/dL 8.5-10.1 Serum or plasma thyrotropin measurement by detection limit <=0.05 miu/l (units/volume) - 09/01/18 00:10 Serum or plasma thyrotropin measurement by detection limit <=0.05 miu/l (units/volume) 2.63 u[iU]/mL 0.35-4.94 Serum or plasma salicylates measurement (mass/volume) - 09/01/18 00:10 Serum or plasma salicylates measurement (mass/volume) < mg/dL 5.0-20.0 Serum or plasma acetaminophen measuremen t (mass/volume) - 09/01/18 00:10 Serum or plasma acetaminophen measurement (mass/volume ) < ug/mL 10-30 Serum or plasma ethanol measurement (mas s/volume) - 09/01/18 00:10 Serum or plasma ethanol measurement (mass/volume) < mg/dL <10 [id number] - 09/01/18 00:10 [id number] 23.1 ug/mL 50.0-100.0 Complete blood count (CBC) with automate d white blood cell (WBC) differential - 09/22/18 16:38 Blood leukocytes automated count (number/volume) 9.0 10*3/uL 4.3-11.0 Blood erythrocytes automated count (number/volume) 5.10 10*6/uL 4.35-5.85 Venous blood hemoglobin measurement (mass/volume) 13.1 g/dL 11.5-16.0 Blood hematocrit (volume fraction) 41 % 35-52 Automated erythrocyte mean corpuscular volume 80 [ foz_us] 80-99 Automated erythrocyte mean corpuscular h emoglobin (mass per erythrocyte) 26 pg 25-34 Automated erythrocyte mean corpuscular h emoglobin concentration measurement (mass/volume) 32 g/dL 32-36 Automated erythrocyte distribution width ratio 15. 7 % 10.0- 14.5 Automated blood platelet count (count/volume) 321 10*3/uL 130-400 Automated blood platelet mean volume measurement 10.4 [foz_us] 7.4-10.4 Automated blood neutrophils/100 leukocytes 53 % 42-75 Automated blood lymphocytes/100 leukocytes 35 % 12-44 Blood monocytes/100 leukocytes 8 % 0-12 Automated blood eosinophils/100 leukocytes 4 % 0-10 Automated blood basophils/100 leukocytes 0 % 0-10 Blood neutrophils automated count (number/volume) 4.8 10*3 1.8-7.8 Blood lymphocytes automated count (number/volume) 3.1 10*3 1.0-4.0 Blood monocytes automated count (number/volume) 0. 7 10*3 0.0-1.0 Automated eosinophil count 0.4 10*3/uL 0 .0-0.3 Automated blood basophil count (count/volume) 0.0 10*3/uL 0.0-0.1 Serum or plasma choriogonadotropin (preg lisa test) detection - 09/22/18 16:38 Serum or plasma choriogonadotropin ( test) de tection NEGATIVE NEGATIVE Comprehensive metabolic panel - 09/22/18 16:38 Serum or plasma sodium measurement (moles/volume) 137 mmol/L 135-145 Serum or plasma potassium measurement (moles/volume) 3.6 mmol/L 3.6-5.0 Serum or plasma chloride measurement (moles/volume) 104 mmol/L 98-107 Carbon dioxide 21 mmol/L 21-32 Serum or plasma anion gap determination (moles/volume) 12 mmol/L 5-14 Serum or plasma urea nitrogen measurement (mass/volume ) 8 mg/dL 7-18 Serum or plasma creatinine measurement (mass/volume) 0.83 mg/dL 0.60-1.30 Serum or plasma urea nitrogen/creatinine mass ratio 10 NRG Serum or plasma creatinine measurement w ith calculation of estimated glomerular filtration rate > NRG Serum or plasma glucose measurement (mass/volume) 78 mg/dL 70-105 Serum or plasma calcium measurement (mass/volume) 9.7 mg/dL 8.5-10.1 Serum or plasma total bilirubin measurement (mass/volu me) 0.6 mg/dL 0.1-1.0 Serum or plasma alkaline phosphatase vicki surement (enzymatic activity/volume) 112 U/L 40-136 Serum or plasma aspartate aminotransfera se measurement (enzymatic activity/volume) 25 U/L 5-34 Serum or plasma alanine aminotransferase measurement (enzymatic activity/volume) 26 U/L 0-55 Serum or plasma protein measurement (mass/volume) 7.2 g/dL 6.4-8.2 Serum or plasma albumin measurement (mass/volume) 4.3 g/dL 3.2-4.5 CALCIUM CORRECTED 9.5 mg/dL 8.5-10.1 Serum or plasma salicylates measurement (mass/volume) - 09/22/18 16:38 Serum or plasma salicylates measurement (mass/volume) < mg/dL 5.0-20.0 Serum or plasma acetaminophen measuremen t (mass/volume) - 09/22/18 16:38 Serum or plasma acetaminophen measurement (mass/volume ) < ug/mL 10-30 [id number] - 09/22/18 16:38 [id number] < 2.0 50.0-100.0 Serum or plasma ethanol measurement (mas s/volume) - 09/22/18 16:38 Serum or plasma ethanol measurement (mass/volume) < mg/dL <10 Complete urinalysis with reflex to cultu re - 11/20/18 03:22 Urine color determination YELLOW NRG Urine clarity determination CLEAR NR G Urine pH measurement by test strip 7 5-9 Specific gravity of urine by test strip 1.010 1.016-1.022 Urine protein assay by test strip, semi-quantitative NEGATIVE NEGATIVE Urine glucose detection by automated test strip NE GATIVE NEGATIVE Erythrocytes detection in urine sediment by light micr oscopy NEGATIVE NEGATIVE Urine ketones detection by automated test strip NE GATIVE NEGATIVE Urine nitrite detection by test strip NEGATIVE NEGATIVE Urine total bilirubin detection by test strip NEGA TIVE NEGATIVE Urine urobilinogen measurement by automated test strip (mass/volume) NORMAL NORMAL Urine leukocyte esterase detection by dipstick 1+ NEGATIVE Automated urine sediment erythrocyte cou nt by microscopy (number/high power field) [HPF] NRG Automated urine sediment leukocyte count by microscopy (number/high power field) [HPF] NRG Bacteria detection in urine sediment by light microsco py FEW NRG Squamous epithelial cells detection in u rine sediment by light microscopy 10-25 NRG Crystals detection in urine sediment by light microsco py NONE NRG Casts detection in urine sediment by light microscopy NONE NRG Mucus detection in urine sediment by light microscopy SMALL NRG Complete urinalysis with reflex to culture NO NRG Urine drug screening test - 11/20/18 03: 22 Urine phencyclidine detection by screening method NEGATIVE NEGATIVE Urine benzodiazepines detection by screening method NEGATIVE NEGATIVE Urine cocaine detection NEGATIVE NEGATI VE Urine amphetamines detection by screening method N EGATIVE NEGATIVE Urine methamphetamine detection by screening method NEGATIVE NEGATIVE Urine cannabinoids detection by screening method N EGATIVE NEGATIVE Urine opiates detection by screening method NEGATI VE NEGATIVE Urine barbiturates detection NEGATIVE N EGATIVE Screening urine tricyclic antidepressants detection NEGATIVE NEGATIVE Urine methadone detection by screening method NEGA TIVE NEGATIVE Urine oxycodone detection NEGATIVE NEGA TIVE Urine propoxyphene detection NEGATIVE N EGATIVE Complete blood count (CBC) with automate d white blood cell (WBC) differential - 11/20/18 04:25 Blood leukocytes automated count (number/volume) 8.0 10*3/uL 4.3-11.0 Blood erythrocytes automated count (number/volume) 5.09 10*6/uL 4.35-5.85 Venous blood hemoglobin measurement (mass/volume) 13.1 g/dL 11.5-16.0 Blood hematocrit (volume fraction) 41 % 35-52 Automated erythrocyte mean corpuscular volume 81 [ foz_us] 80-99 Automated erythrocyte mean corpuscular h emoglobin (mass per erythrocyte) 26 pg 25-34 Automated erythrocyte mean corpuscular h emoglobin concentration measurement (mass/volume) 32 g/dL 32-36 Automated erythrocyte distribution width ratio 14. 9 % 10.0- 14.5 Automated blood platelet count (count/volume) 331 10*3/uL 130-400 Automated blood platelet mean volume measurement 10.9 [foz_us] 7.4-10.4 Automated blood neutrophils/100 leukocytes 49 % 42-75 Automated blood lymphocytes/100 leukocytes 39 % 12-44 Blood monocytes/100 leukocytes 7 % 0-12 Automated blood eosinophils/100 leukocytes 5 % 0-10 Automated blood basophils/100 leukocytes 0 % 0-10 Blood neutrophils automated count (number/volume) 3.9 10*3 1.8-7.8 Blood lymphocytes automated count (number/volume) 3.1 10*3 1.0-4.0 Blood monocytes automated count (number/volume) 0. 6 10*3 0.0-1.0 Automated eosinophil count 0.4 10*3/uL 0 .0-0.3 Automated blood basophil count (count/volume) 0.0 10*3/uL 0.0-0.1 Comprehensive metabolic panel - 11/20/18 04:25 Serum or plasma sodium measurement (moles/volume) 140 mmol/L 135-145 Serum or plasma potassium measurement (moles/volume) 3.5 mmol/L 3.6-5.0 Serum or plasma chloride measurement (moles/volume) 108 mmol/L 98-107 Carbon dioxide 23 mmol/L 21-32 Serum or plasma anion gap determination (moles/volume) 9 mmol/L 5-14 Serum or plasma urea nitrogen measurement (mass/volume ) 4 mg/dL 7-18 Serum or plasma creatinine measurement (mass/volume) 0.74 mg/dL 0.60-1.30 Serum or plasma urea nitrogen/creatinine mass ratio 5 NRG Serum or plasma creatinine measurement w ith calculation of estimated glomerular filtration rate > NRG Serum or plasma glucose measurement (mass/volume) 93 mg/dL 70-105 Serum or plasma calcium measurement (mass/volume) 9.1 mg/dL 8.5-10.1 Serum or plasma total bilirubin measurement (mass/volu me) 0.4 mg/dL 0.1-1.0 Serum or plasma alkaline phosphatase vicki surement (enzymatic activity/volume) 111 U/L 40-136 Serum or plasma aspartate aminotransfera se measurement (enzymatic activity/volume) 24 U/L 5-34 Serum or plasma alanine aminotransferase measurement (enzymatic activity/volume) 28 U/L 0-55 Serum or plasma protein measurement (mass/volume) 6.8 g/dL 6.4-8.2 Serum or plasma albumin measurement (mass/volume) 4.1 g/dL 3.2-4.5 CALCIUM CORRECTED 9.0 mg/dL 8.5-10.1 Serum or plasma amylase measurement (enz ymatic activity/volume) - 11/20/18 04:25 Serum or plasma amylase measurement (enzymatic activit y/volume) 26 U/L 25-125 Lipase - 11/20/18 04:25 Lipase 17 U/L 8-78 Complete blood count (CBC) with automate d white blood cell (WBC) differential - 05/22/19 00:42 Blood leukocytes automated count (number/volume) 9.6 10*3/uL 4.3-11.0 Blood erythrocytes automated count (number/volume) 4.74 10*6/uL 4.35-5.85 Venous blood hemoglobin measurement (mass/volume) 12.8 g/dL 11.5-16.0 Blood hematocrit (volume fraction) 39 % 35-52 Automated erythrocyte mean corpuscular volume 81 [ foz_us] 80-99 Automated erythrocyte mean corpuscular h emoglobin (mass per erythrocyte) 27 pg 25-34 Automated erythrocyte mean corpuscular h emoglobin concentration measurement (mass/volume) 33 g/dL 32-36 Automated erythrocyte distribution width ratio 14. 6 % 10.0- 14.5 Automated blood platelet count (count/volume) 297 10*3/uL 130-400 Automated blood platelet mean volume measurement 10.2 [foz_us] 7.4-10.4 Automated blood neutrophils/100 leukocytes 60 % 42-75 Automated blood lymphocytes/100 leukocytes 32 % 12-44 Blood monocytes/100 leukocytes 5 % 0-12 Automated blood eosinophils/100 leukocytes 3 % 0-10 Automated blood basophils/100 leukocytes 0 % 0-10 Blood neutrophils automated count (number/volume) 5.8 10*3 1.8-7.8 Blood lymphocytes automated count (number/volume) 3.0 10*3 1.0-4.0 Blood monocytes automated count (number/volume) 0. 5 10*3 0.0-1.0 Automated eosinophil count 0.3 10*3/uL 0 .0-0.3 Automated blood basophil count (count/volume) 0.0 10*3/uL 0.0-0.1 Comprehensive metabolic panel - 05/22/19 00:42 Serum or plasma sodium measurement (moles/volume) 138 mmol/L 135-145 Serum or plasma potassium measurement (moles/volume) 3.6 mmol/L 3.6-5.0 Serum or plasma chloride measurement (moles/volume) 106 mmol/L 98-107 Carbon dioxide 19 mmol/L 21-32 Serum or plasma anion gap determination (moles/volume) 13 mmol/L 5-14 Serum or plasma urea nitrogen measurement (mass/volume ) 11 mg/dL 7-18 Serum or plasma creatinine measurement (mass/volume) 0.74 mg/dL 0.60-1.30 Serum or plasma urea nitrogen/creatinine mass ratio 15 NRG Serum or plasma creatinine measurement w ith calculation of estimated glomerular filtration rate > NRG Serum or plasma glucose measurement (mass/volume) 94 mg/dL 70-105 Serum or plasma calcium measurement (mass/volume) 8.9 mg/dL 8.5-10.1 Serum or plasma total bilirubin measurement (mass/volu me) 0.2 mg/dL 0.1-1.0 Serum or plasma alkaline phosphatase vicki surement (enzymatic activity/volume) 81 U/L 40-136 Serum or plasma aspartate aminotransfera se measurement (enzymatic activity/volume) 19 U/L 5-34 Serum or plasma alanine aminotransferase measurement (enzymatic activity/volume) 14 U/L 0-55 Serum or plasma protein measurement (mass/volume) 6.6 g/dL 6.4-8.2 Serum or plasma albumin measurement (mass/volume) 4.1 g/dL 3.2-4.5 CALCIUM CORRECTED 8.8 mg/dL 8.5-10.1 THYROID STIMULATING HORMONE - 05/22/19 0 0:42 THYROID STIMULATING HORMONE 3.85 u[iU]/mL 0.35-4.94 Serum or plasma salicylates measurement (mass/volume) - 05/22/19 00:42 Serum or plasma salicylates measurement (mass/volume) < mg/dL 5.0-20.0 Serum or plasma acetaminophen measuremen t (mass/volume) - 05/22/19 00:42 Serum or plasma acetaminophen measurement (mass/volume ) < ug/mL 10-30 Serum or plasma ethanol measurement (mas s/volume) - 05/22/19 00:42 Serum or plasma ethanol measurement (mass/volume) < mg/dL <10 Urine drug screening test - 05/22/19 01: 08 Urine phencyclidine detection by screening method NEGATIVE NEGATIVE Urine benzodiazepines detection by screening method NEGATIVE NEGATIVE Urine cocaine detection NEGATIVE NEGATI VE Urine amphetamines detection by screening method N EGATIVE NEGATIVE Urine methamphetamine detection by screening method NEGATIVE NEGATIVE Urine cannabinoids detection by screening method N EGATIVE NEGATIVE Urine opiates detection by screening method NEGATI VE NEGATIVE Urine barbiturates detection NEGATIVE N EGATIVE Screening urine tricyclic antidepressants detection NEGATIVE NEGATIVE Urine methadone detection by screening method NEGA TIVE NEGATIVE Urine oxycodone detection NEGATIVE NEGA TIVE Urine propoxyphene detection NEGATIVE N EGATIVE Complete urinalysis with reflex to cultu re - 05/22/19 01:08 Urine color determination YELLOW NRG Urine clarity determination CLEAR NR G Urine pH measurement by test strip 6.0 5-9 Specific gravity of urine by test strip 1.015 1.016-1.022 Urine protein assay by test strip, semi-quantitative NEGATIVE NEGATIVE Urine glucose detection by automated test strip NE GATIVE NEGATIVE Erythrocytes detection in urine sediment by light micr oscopy NEGATIVE NEGATIVE Urine ketones detection by automated test strip NE GATIVE NEGATIVE Urine nitrite detection by test strip NEGATIVE NEGATIVE Urine total bilirubin detection by test strip NEGA TIVE NEGATIVE Urine urobilinogen measurement by automated test strip (mass/volume) 0.2 mg/dL < = 1.0 Urine leukocyte esterase detection by dipstick NEG ATIVE NEGATIVE Automated urine sediment erythrocyte cou nt by microscopy (number/high power field) NONE NRG Automated urine sediment leukocyte count by microscopy (number/high power field) NONE NRG Bacteria detection in urine sediment by light microsco py NEGATIVE NRG Squamous epithelial cells detection in u rine sediment by light microscopy 2-5 NRG Crystals detection in urine sediment by light microsco py NONE NRG Casts detection in urine sediment by light microscopy NONE NRG Mucus detection in urine sediment by light microscopy SMALL NRG Complete urinalysis with reflex to culture NO NRG Complete blood count (CBC) with automate d white blood cell (WBC) differential - 05/27/19 19:35 Blood leukocytes automated count (number/volume) 9.1 10*3/uL 4.3-11.0 Blood erythrocytes automated count (number/volume) 4.70 10*6/uL 4.35-5.85 Venous blood hemoglobin measurement (mass/volume) 12.7 g/dL 11.5-16.0 Blood hematocrit (volume fraction) 38 % 35-52 Automated erythrocyte mean corpuscular volume 81 [ foz_us] 80-99 Automated erythrocyte mean corpuscular h emoglobin (mass per erythrocyte) 27 pg 25-34 Automated erythrocyte mean corpuscular h emoglobin concentration measurement (mass/volume) 33 g/dL 32-36 Automated erythrocyte distribution width ratio 14. 9 % 10.0- 14.5 Automated blood platelet count (count/volume) 309 10*3/uL 130-400 Automated blood platelet mean volume measurement 10.0 [foz_us] 7.4-10.4 Automated blood neutrophils/100 leukocytes 53 % 42-75 Automated blood lymphocytes/100 leukocytes 35 % 12-44 Blood monocytes/100 leukocytes 7 % 0-12 Automated blood eosinophils/100 leukocytes 4 % 0-10 Automated blood basophils/100 leukocytes 0 % 0-10 Blood neutrophils automated count (number/volume) 4.8 10*3 1.8-7.8 Blood lymphocytes automated count (number/volume) 3.2 10*3 1.0-4.0 Blood monocytes automated count (number/volume) 0. 7 10*3 0.0-1.0 Automated eosinophil count 0.4 10*3/uL 0 .0-0.3 Automated blood basophil count (count/volume) 0.0 10*3/uL 0.0-0.1 Serum or plasma choriogonadotropin (preg lisa test) detection - 05/27/19 19:35 Serum or plasma choriogonadotropin ( test) de tection NEGATIVE NEGATIVE Comprehensive metabolic panel - 05/27/19 19:35 Serum or plasma sodium measurement (moles/volume) 137 mmol/L 135-145 Serum or plasma potassium measurement (moles/volume) 3.2 mmol/L 3.6-5.0 Serum or plasma chloride measurement (moles/volume) 105 mmol/L 98-107 Carbon dioxide 24 mmol/L 21-32 Serum or plasma anion gap determination (moles/volume) 8 mmol/L 5-14 Serum or plasma urea nitrogen measurement (mass/volume ) 9 mg/dL 7-18 Serum or plasma creatinine measurement (mass/volume) 0.77 mg/dL 0.60-1.30 Serum or plasma urea nitrogen/creatinine mass ratio 12 NRG Serum or plasma creatinine measurement w ith calculation of estimated glomerular filtration rate > NRG Serum or plasma glucose measurement (mass/volume) 104 mg/dL 70-105 Serum or plasma calcium measurement (mass/volume) 9.6 mg/dL 8.5-10.1 Serum or plasma total bilirubin measurement (mass/volu me) 0.3 mg/dL 0.1-1.0 Serum or plasma alkaline phosphatase vicki surement (enzymatic activity/volume) 88 U/L 40-136 Serum or plasma aspartate aminotransfera se measurement (enzymatic activity/volume) 16 U/L 5-34 Serum or plasma alanine aminotransferase measurement (enzymatic activity/volume) 15 U/L 0-55 Serum or plasma protein measurement (mass/volume) 6.9 g/dL 6.4-8.2 Serum or plasma albumin measurement (mass/volume) 4.4 g/dL 3.2-4.5 CALCIUM CORRECTED 9.3 mg/dL 8.5-10.1 Serum or plasma salicylates measurement (mass/volume) - 05/27/19 19:35 Serum or plasma salicylates measurement (mass/volume) < mg/dL 5.0-20.0 Serum or plasma acetaminophen measuremen t (mass/volume) - 05/27/19 19:35 Serum or plasma acetaminophen measurement (mass/volume ) < ug/mL 10-30 Serum or plasma ethanol measurement (mas s/volume) - 05/27/19 19:35 Serum or plasma ethanol measurement (mass/volume) < mg/dL <10 Complete urinalysis with reflex to cultu re - 05/27/19 20:22 Urine color determination YELLOW NRG Urine clarity determination CLEAR NR G Urine pH measurement by test strip 7.0 5-9 Specific gravity of urine by test strip 1.015 1.016-1.022 Urine protein assay by test strip, semi-quantitative NEGATIVE NEGATIVE Urine glucose detection by automated test strip NE GATIVE NEGATIVE Erythrocytes detection in urine sediment by light micr oscopy NEGATIVE NEGATIVE Urine ketones detection by automated test strip NE GATIVE NEGATIVE Urine nitrite detection by test strip NEGATIVE NEGATIVE Urine total bilirubin detection by test strip NEGA TIVE NEGATIVE Urine urobilinogen measurement by automated test strip (mass/volume) 0.2 mg/dL < = 1.0 Urine leukocyte esterase detection by dipstick NEG ATIVE NEGATIVE Automated urine sediment erythrocyte cou nt by microscopy (number/high power field) NONE NRG Automated urine sediment leukocyte count by microscopy (number/high power field) NONE NRG Bacteria detection in urine sediment by light microsco py TRACE NRG Squamous epithelial cells detection in u rine sediment by light microscopy 10-25 NRG Crystals detection in urine sediment by light microsco py NONE NRG Casts detection in urine sediment by light microscopy NONE NRG Mucus detection in urine sediment by light microscopy NEGATIVE NRG Complete urinalysis with reflex to culture NO NRG Urine drug screening test - 05/27/19 20: 22 Urine phencyclidine detection by screening method NEGATIVE NEGATIVE Urine benzodiazepines detection by screening method NEGATIVE NEGATIVE Urine cocaine detection NEGATIVE NEGATI VE Urine amphetamines detection by screening method N EGATIVE NEGATIVE Urine methamphetamine detection by screening method NEGATIVE NEGATIVE Urine cannabinoids detection by screening method N EGATIVE NEGATIVE Urine opiates detection by screening method NEGATI VE NEGATIVE Urine barbiturates detection NEGATIVE N EGATIVE Screening urine tricyclic antidepressants detection NEGATIVE NEGATIVE Urine methadone detection by screening method NEGA TIVE NEGATIVE Urine oxycodone detection NEGATIVE NEGA TIVE Urine propoxyphene detection NEGATIVE N EGATIVE Complete blood count (CBC) with automate d white blood cell (WBC) differential - 06/10/19 03:34 Blood leukocytes automated count (number/volume) 11.3 10*3/uL 4.3-11.0 Blood erythrocytes automated count (number/volume) 5.13 10*6/uL 4.35-5.85 Venous blood hemoglobin measurement (mass/volume) 13.8 g/dL 11.5-16.0 Blood hematocrit (volume fraction) 42 % 35-52 Automated erythrocyte mean corpuscular volume 82 [ foz_us] 80-99 Automated erythrocyte mean corpuscular h emoglobin (mass per erythrocyte) 27 pg 25-34 Automated erythrocyte mean corpuscular h emoglobin concentration measurement (mass/volume) 33 g/dL 32-36 Automated erythrocyte distribution width ratio 15. 1 % 10.0- 14.5 Automated blood platelet count (count/volume) 313 10*3/uL 130-400 Automated blood platelet mean volume measurement 10.7 [foz_us] 7.4-10.4 Automated blood neutrophils/100 leukocytes 50 % 42-75 Automated blood lymphocytes/100 leukocytes 36 % 12-44 Blood monocytes/100 leukocytes 7 % 0-12 Automated blood eosinophils/100 leukocytes 6 % 0-10 Automated blood basophils/100 leukocytes 1 % 0-10 Blood neutrophils automated count (number/volume) 5.7 10*3 1.8-7.8 Blood lymphocytes automated count (number/volume) 4.1 10*3 1.0-4.0 Blood monocytes automated count (number/volume) 0. 8 10*3 0.0-1.0 Automated eosinophil count 0.7 10*3/uL 0 .0-0.3 Automated blood basophil count (count/volume) 0.1 10*3/uL 0.0-0.1 Comprehensive metabolic panel - 06/10/19 03:34 Serum or plasma sodium measurement (moles/volume) 140 mmol/L 135-145 Serum or plasma potassium measurement (moles/volume) 3.5 mmol/L 3.6-5.0 Serum or plasma chloride measurement (moles/volume) 105 mmol/L 98-107 Carbon dioxide 23 mmol/L 21-32 Serum or plasma anion gap determination (moles/volume) 12 mmol/L 5-14 Serum or plasma urea nitrogen measurement (mass/volume ) 9 mg/dL 7-18 Serum or plasma creatinine measurement (mass/volume) 0.78 mg/dL 0.60-1.30 Serum or plasma urea nitrogen/creatinine mass ratio 12 NRG Serum or plasma creatinine measurement w ith calculation of estimated glomerular filtration rate > NRG Serum or plasma glucose measurement (mass/volume) 79 mg/dL 70-105 Serum or plasma calcium measurement (mass/volume) 9.4 mg/dL 8.5-10.1 Serum or plasma total bilirubin measurement (mass/volu me) 0.2 mg/dL 0.1-1.0 Serum or plasma alkaline phosphatase vicki surement (enzymatic activity/volume) 86 U/L 40-136 Serum or plasma aspartate aminotransfera se measurement (enzymatic activity/volume) 17 U/L 5-34 Serum or plasma alanine aminotransferase measurement (enzymatic activity/volume) 16 U/L 0-55 Serum or plasma protein measurement (mass/volume) 7.3 g/dL 6.4-8.2 Serum or plasma albumin measurement (mass/volume) 4.5 g/dL 3.2-4.5 CALCIUM CORRECTED 9.0 mg/dL 8.5-10.1 Serum or plasma salicylates measurement (mass/volume) - 06/10/19 03:34 Serum or plasma salicylates measurement (mass/volume) < mg/dL 5.0-20.0 Serum or plasma acetaminophen measuremen t (mass/volume) - 06/10/19 03:34 Serum or plasma acetaminophen measurement (mass/volume ) < ug/mL 10-30 Serum or plasma ethanol measurement (mas s/volume) - 06/10/19 03:34 Serum or plasma ethanol measurement (mass/volume) < mg/dL <10 Encounters ACCT No. Visit Date/Time Discharge Status Pt. Type Provider Facility Loc./Unit Complaint [id number] 06/08/2016 08:35:00 Document Registration [id number] 06/10/2019 02:39:00 04:00:00 DIS Outpatient NANCY FLORES MD [facility] ER SUICIDAL [id number] 05/27/2019 19:38:00 23:14:00 DIS Emergency DANI MARTIN APRN [facility] ER SUDICIDAL IDEATIONS [id number] 05/21/2019 23:48:00 02:46:00 DIS Emergency NANCY FLORES MD [facility] ER SUICIDAL IDEATIONS [id number] 11/20/2018 03:14:00 019 07:45:00 DIS Outpatient DAVID DUNBAR DO, [facility] ER ABD PAIN,NAUSEA,VOMITED ONCE [id number] 09/22/2018 15:59:00 17:25:00 DIS Outpatient DANI MARTIN APRN [facility] ER SUICIDAL IDEATIONS [id number] 08/31/2018 23:45:00 019 06:28:00 DIS Emergency DAVID DUNBAR DO [facility] ER SUICIDAL [id number] 08/02/2018 22:02:00 019 00:06:00 DIS Emergency NANCY FLORES MD [facility] ER SUICIDAL [id number] 06/14/2018 20:46:00 019 08:23:00 DIS Emergency TAI DEAN, NUNU [place] [facility] ER SUICIDAL IDEATI ONS [id number] 06/14/2018 01:01:00 04:23:00 DIS Outpatient NANCY FLORES MD [facility] ER ANXIETY FEELING BAD [id number] 04/15/2018 17:29:00 019 02:15:00 DIS Emergency NANCY FLORES MD [facility] ER SUICIDAL THOUGHTS [id number] 03/22/2018 17:20:00 019 12:25:00 DIS Inpatient KEIKO ZUNIGA DO, V [facility] ICU SUICIDIAL/HOMOCIDAL NATO ATION [id number] 03/22/2018 07:26:00 019 10:40:00 DIS Emergency JUSTYNA JJ MD [facility] ER DELUSIONAL,SUICIDAL NATO ATIONS [id number] 01/23/2018 15:22:00 018 17:22:00 DIS Emergency DANI MARTIN APRN [facility] ER DEPRESSION,SUCIDIAL [id number] 01/11/2018 20:51:00 018 00:57:00 DIS Emergency DAVID DUNBAR DO [facility] ER PSYCH EVAL [id number] 09/20/2017 04:03:00 07:53:00 DIS Emergency DAVID DUNBAR DO [facility] ER SUICIDAL [id number] 07/14/2017 23:06:00 018 23:56:00 DIS Emergency DAVID DUNBAR DO Zeb Reyna alyson [facility] ER MEDICATION COMPLICATION S [id number] 07/11/2017 18:56:00 018 19:31:00 DIS Emergency DANI MARTIN APRN [facility] ER SCHIZOPHRENIA [id number] 05/20/2017 02:02:00 018 07:13:00 DIS Emergency BETTINA DAVID DAVID Zeb Reyna alyson [facility] ER SUICIDAL, WANTS MEDS FI XED [id number] 01/29/2017 03:35:00 017 17:25:00 DIS Inpatient INO SCRUGGS MD [facility] 4TH SUICIDAL IDEATIONS [id number] 01/06/2017 20:52:00 017 23:42:00 DIS Emergency SHIRA SINGH [facility] ER SUICIDAL THOUGHTS [id number] 12/28/2016 02:10:00 017 15:50:00 DIS Inpatient GUILLERMINA ARROYO DO [facility] ICU INTENTIONAL ALAYNA G OVERDOSE OF LITHIUM;SUICIDE [id number] 12/22/2016 21:26:00 017 16:09:00 DIS Emergency NUNU LUJAN MD [facility] ER PSYCH EVAL [id number] 10/17/2016 04:15:00 017 06:00:00 DIS Emergency BETTINA DAVIDDAVID [facility] ER HEADACHE,BLURRY VISION [id number] 07/19/2016 12:13:00 017 16:10:00 DIS Emergency DANI MARTIN APRN [facility] ER SUICIDAL [id number] 04/14/2016 20:24:00 017 22:13:00 DIS Emergency DANI MARTIN APRN [facility] ER TREMORS, DRY HEAVING, C ONFUSION, DROOLING [id number] 07/27/2015 20:40:00 016 22:49:00 DIS Emergency DANI MARTIN APRN [facility] ER PSYCH EVAL [id number] 06/29/2014 20:37:00 015 22:45:00 DIS Emergency SHIRA SINGH [facility] ER SUICIDAL IDEATION [id number] 12/17/2014 02:26:00 Document Registration [id number] 12/06/2015 18:06:00 Document Registration [id number] 03/23/2018 15:52:00 9 18:13:00 DIS Inpatient TOBYCATHERINE WATTS [facility] [id number] 09/18/2018 14:30:00 09/18/2018 23:59:5 9 [facility] Outpatient VARSHA CASTRO [facility] [id number] 01/17/2017 19:35:00 Document Registration [id number] 12/07/2015 10:05:00 Document Registration
[2019-08-04] MEDS ORDERED: HYDROCORTISONE 1% CREAM 30 GM TUBE ONE (05:38)
--- NOTE | 2019-08-04 05:46 | ED Psychosocial ---
General Chief Complaint: Psych/Social Disorder Stated Complaint: ANXIETY Nursing Triage Note: Pt ambulates to [facility] 8 via [facility]. PT has c/o of "being manic", states they missed x2 days of pysch meds, having auditory/visual hallucinations yesterday. When asked to ellaborate on hallucinations, pt states "I wanted to walk around and act like [place] Brijesh and cause harm". Pt also states she has the "urge to cut". When this RN asked if pt has intent to harm self or others, pt states "No I'm not suicidal right now, it just helps me with relief", no cuts present on arrival. Pt's behavior is calm and cooperative, wanting to get help with her symptoms. Source: patient Exam Limitations: no limitations History of Present Illness Date Seen by Provider: Aug 04, 2019 Time Seen by Provider: 04:18 Initial Comments This 24-year-old woman with multiple behavioral health diagnoses presents to the emergency room stating that she feels manic and she feels like she could harm herself. She saw her boyfriend yesterday which made her "super happy". She believes this experience along with forgetting to take her medications for a few days has caused an exacerbation of her mental health issues. She describes several urges including the urge to cut. She denies suicidal ideation at this time. She also describes the urge to act like Losmayo Coley and go on venture such as wandering in the [place] or committing crimes. She is afraid this may lead to harm. She also reports doing a "dab pen" (concentrated THC) on August 01. She is feeling better now than she did yesterday or earlier this morning. She believes her medications, which she resumed last night, are starting to take effect. She arrives via EMS. She mentioned something to EMS about wondering if she was . Patient also reports a pruritic rash on her back. She notes swinging on a swing near poison [place] recently. Allergies and Home Medications Allergies Coded Allergies: haloperidol (Verified Allergy, Mild, 12/16/14) Home Medications Divalproex Sodium 500 Mg Tab.er.24h, 1,000 MG PO HS, (Reported) TAKES 2 (500MG) TABLETS Fluoxetine HCl 20 Mg Capsule, 20 MG PO HS, (Reported) Hyoscyamine Sulfate 0.125 Mg Tab.subl, 1-2 TAB SL Q4H Prescribed by: DAVID DUNBAR on 11/20/18721 Levothyroxine Sodium 25 Mcg Tablet, 25 MCG PO DAILY, (Reported) Ondansetron 4 Mg Tab.rapdis, 4 MG PO Q4H Prescribed by: DAVID DUNBAR on 11/20/18721 Pantoprazole Sodium 40 Mg Tablet.dr, 40 MG PO DAILY Prescribed by: ADVID DUNBAR on 11/20/18721 Patient Home Medication List Home Medication List Reviewed: Yes Review of Systems Constitutional: no symptoms reported EENTM: no symptoms reported Respiratory: no symptoms reported Cardiovascular: no symptoms reported Gastrointestinal: no symptoms reported Genitourinary: no symptoms reported : No Musculoskeletal: no symptoms reported Skin: no symptoms reported Psychiatric/Neurological: See HPI Past Ektzfnu-Dlngrt-Pxmnex Hx Past Med/Social Hx: Reviewed Nursing Past Med/Soc Hx Patient Social History Alcohol Use: Rarely Uses Alcohol Beverage of Choice: Beer Recreational Drug Use: Yes Drug of Choice: Marijuana Smoking Status: Current Everyday Smoker Type Used: Cigarettes 2nd Hand Smoke Exposure: No Recent Infectious Disease Expo: No Recent Hopitalizations: No Physical Abuse: No Sexual Abuse: No Mistreated: No Fear: No Immunizations Up To Date Tetanus Booster (TDap): Unknown Date of Influenza Vaccine: Jan 01, 2018 Seasonal Allergies Seasonal Allergies: No Past Medical History Surgeries: No Respiratory: No Cardiac: No Neurological: Yes Headaches /Migraines Reproductive Disorders: Yes Female Reproductive Disorders: Menstrual Problems Genitourinary: Yes UTI-Chronic Gastrointestinal: No Musculoskeletal: No Endocrine: Yes (OBESITY) Hypothyroidsim HEENT: No Cancer: No Psychosocial: Yes Anxiety, Suicide Attempts, Bipolar, Personality Disorder, Schizophrenia, Depression Integumentary: No Blood Disorders: No Family Medical History Asthma 19 MOTHER No Pertinent Family Hx Physical Exam Vital Signs - First Documented 08/04/19 04:01 Temp 36.3 Pulse 74 Resp 19 B/P (MAP) 121/74 (90) Pulse Ox 99 O2 Delivery Room Air Capillary Refill : Less Than 3 Seconds Height, Weight, BMI Height: 5'3.00" Weight: 275lbs. 5.0oz. 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 I discussed the case with the county screener. He knows the patient and feels she would likely be safe to stay at home for a few hours until her case management rn can be contacted. I did attempt to call the case management rn but did not get an answer. Patient feels like her medications are starting to take effect and she does feel safer now. She called her girlfriend to pick her up. Bedside test was negative. Hydrocortisone cream was given for treatment of the pruritic rash. Departure Impression Primary Impression: Bipolar disorder Qualified Codes: F31.11 - Bipolar disorder, current episode manic without psychotic features, mild Additional Impression: Poison vickie dermatitis Disposition: 01 HOME, SELF-CARE Condition: Improved Departure-Patient Inst. Decision time for Depature: 05:44 Referrals: [facility] (PCP/Family) Primary Care Physician Patient Instructions: Poison Vickie, Bipolar Disorder Add. Discharge Instructions: Continue taking your medications as prescribed. Contact with your case management rn this morning. Contact to the SAVE line if your symptoms worsen again and you feel you are in danger. You may use the steroid cream on your itchy rash twice daily as needed to help control itching. [id number] antihistamine such as Benadryl, Claritin, etc. may be used for itch as well. All discharge instructions reviewed with patient and/or family. Voiced understanding. Copy Copies To 1: CLEO YANG JOSHUA T MD Aug 04, 2019 05:46
[2019-08-04 05:48] VITALS: BP 121/74
[2019-08-04] MEDS ORDERED: HYDROCORTISONE 1% CREAM 30 GM TUBE TOP SCH (09:00)
== END 2019-08-04 05:53 | disposition home or self-care (01) ==
LOC: EDUNIT# 04:00 → ER 04:02
DX: F31.9 Bipolar disorder, unspecified (principal); L23.7 Allergic contact dermatitis due to plants, except food; G43.909 Migraine, unspecified, not intractable, without status migrainosus; E03.9 Hypothyroidism, unspecified; E66.9 Obesity, unspecified; F20.9 Schizophrenia, unspecified; F17.210 Nicotine dependence, cigarettes, uncomplicated; Z68.41 Body mass index [BMI] 40.0-44.9, adult; Z88.8 Allergy status to other drugs, medicaments and biological substances
CPT/HCPCS: 84703; 99283

== ENCOUNTER 2020-01-15 03:20 | Emergency (ER) | payer MEDICARE, MEDICAID ==
[~2020-01-15] VITALS: Ht 160 cm; Wt 102.5 kg
--- NOTE | 2020-01-15 04:05 | ED Psychosocial ---
General Chief Complaint: Psych/Social Disorder Stated Complaint: ANXIETY,SUICIDAL Source: patient (GIVES INCONSISTENT INFORMATION) History of Present Illness Date Seen by Provider: Jan 15, 2020 Time Seen by Provider: 03:30 Initial Comments PT ARRIVES VIA EMS FROM HOME--WALKS IN ON HER OWN, CARRYING A BABY DOLL. PT LIVES IN A "[place]RECTION APARTMENTS--BUT THERE ISN'T ANY STAFF" PER PT. C/O SUICIDAL IDEATIONS AND FEELING ANXIOUS STATES SHE CALLED THE SAVE LINE AND THEY TOLD HER TO COME HERE. THESE ARE CHRONIC ISSUES WITH PT PT STATES SHE HAS BEEN OFF OF ALL OF HER MEDICATIONS FOR SEVERAL MONTHS, AND THEN STARTED FEELING ANXIOUS, SO WAS STARTED ON PRN HYDROXYZINE A FEW WEEKS AGO. STATES SHE TOOK HER LAST DOSE YESTERDAY MORNING. ( PER MED RECONCILIATION, PT WAS PRESCRIBED HYDROXYZINE #45 ON 01/11/20) STATES SHE USED TO BE ON ANTIPSYCHOTIC, PROLIXIN, AND SHE SAW SHELLEY JAVIER AT [facility] THIS WEEK, AND WAS ADVISED THAT SHE NEEDED TO RESTART IT, BUT PT DID NOT DEPUTY SHERIFF THE PRESCRIPTION. THEN LATER STATES SHE HAD SOME "LEFTOVER" PROLIXIN, AND TOOK SOME THIS PAST WEEK, BUT CANNOT STATE WHEN SHE STARTED BACK ON IT OR IF SHE HAS BEEN TAKING IT EVERY DAY OR WHEN SHE LAST TOOK IT. PT DENIES OVER-DOSING ON ANY MEDICATIONS STATES THOUGHT ABOUT USING A KNIFE TO HARM HERSELF, BUT HAS NOT MADE ANY ATTEMPT DENIES ANY SPECIFIC TRIGGER PT STATES "I'M HERE TO BE SAFE" "SOMEONE WOULD GET HURT IF I STAYED--I DON'T KNOW WHO--I WOULD BREAK A GLASS" PT STATES "I'M AFRAID I'M GOING TO [place]" STATES "I NEED TO BE ADMITTED TO A PSYCH UNIT" PT STATES "I CALLED MY GIRLFRIEND ADRIAN AND SHE'S JUST NOT GETTING IT AND I TRIED TO BREAK UP WITH HER AND I DON'T KNOW WHAT TO DO-SHE'S JUST NOT GETTING IT" STATES "I'VE BEEN REALLY LOUD THE LAST FEW NIGHTS AND EVERYBODY'S COMPLAINING" STATES SHE HAS NOT BEEN SLEEPING WELL. STATES SHE FEELS LIKE SHE IS GETTING MANIC PT WITH EXTENSIVE PSYCH HISTORY AND LONGSTANDING, EXTREME NON-COMPLIANCE IN ALL ASPECTS OF CARE PT HAS HAD 30 VISITS HERE SINCE 2014--NEARLY ALL FOR SUICIDAL RELATED COMPLAINTS, PSYCH COMPLAINTS. HAS SUICIDAL "THOUGHTS" BUT ONLY 1 ACTUAL ATTEMPT IN 2017 WITH OVERDOSE. VERY MANIPULATIVE BEHAVIOR. LAST VISIT HERE WAS 08/04/19, WITH 5 VISITS IN 2020--ALL FOR PSYCH RELATED COMPLAINTS PCP: [facility], BUT HAS NOT BEEN THERE IN A LONG TIME. PSYCH: [facility] AT [facility]. HAS ALSO BE[facility]. Allergies and Home Medications Allergies Coded Allergies: haloperidol (Verified Allergy, Mild, 12/16/14) Home Medications Divalproex Sodium 500 Mg Tab.er.24h, 1,000 MG PO HS, (Reported) TAKES 2 (500MG) TABLETS Fluoxetine HCl 20 Mg Capsule, 20 MG PO HS, (Reported) Hyoscyamine Sulfate 0.125 Mg Tab.subl, 1-2 TAB SL Q4H Prescribed by: DAVID DUNBAR on 11/20/18721 Levothyroxine Sodium 25 Mcg Tablet, 25 MCG PO DAILY, (Reported) Ondansetron 4 Mg Tab.rapdis, 4 MG PO Q4H Prescribed by: DAVID DUNBAR on 11/20/18721 Pantoprazole Sodium 40 Mg Tablet.dr, 40 MG PO DAILY Prescribed by: DAVID DUNBAR on 11/20/18721 Patient Home Medication List Home Medication List Reviewed: Yes Review of Systems Constitutional: no symptoms reported Respiratory: no symptoms reported Cardiovascular: no symptoms reported Gastrointestinal: no symptoms reported Genitourinary: no symptoms reported : No (HAS NOT HAD A PERIOD FOR 5-6 MONTHS) Control/STD Prophylaxis: None (PT WAS DUE FOR DEPO SHOT IN , BUT DID NOT GO TO GET IT. ) Musculoskeletal: no symptoms reported Skin: no symptoms reported Psychiatric/Neurological: See HPI Past Lhwjlbt-Wmkyuy-Vcqwkj Hx Past Med/Social Hx: Reviewed and Corrections made Patient Social History Alcohol Use: Occasionally Uses Alcohol Beverage of Choice: Beer Recreational Drug Use: Yes Drug of Choice: Marijuana Smoking Status: Current Everyday Smoker Type Used: Cigarettes 2nd Hand Smoke Exposure: No Recent Hopitalizations: No Immunizations Up To Date Tetanus Booster (TDap): Unknown Date of Influenza Vaccine: Jan 01, 2018 Seasonal Allergies Seasonal Allergies: No Past Medical History Surgeries: No Respiratory: No Cardiac: No Neurological: Yes Headaches /Migraines Reproductive Disorders: Yes Female Reproductive Disorders: Menstrual Problems Genitourinary: Yes UTI-Chronic Gastrointestinal: No Musculoskeletal: No Endocrine: Yes (OBESITY; REFUSES TO TAKE THYROID MEDICATIONS) Hypothyroidsim HEENT: No Cancer: No Psychosocial: Yes Anxiety, Suicide Attempts, Bipolar, Personality Disorder, Schizophrenia, Depression Integumentary: No Blood Disorders: No Family Medical History Asthma 19 MOTHER No Pertinent Family Hx SOCIAL HISTORY: -ETOH-RARE USE -DRUGS-MARIJUANA -SMOKES 1-2 PPD PSYCH HISTORY--EXTENSIVE PSYCH ISSUES, SUICIDAL "THOUGHTS" BUT ONLY 1 ACTUAL ATTEMPT IN 2017. VERY MANIPULATIVE BEHAVIOR. EXTREME NON-COMPLIANCE IN ALL ASPECTS OF CARE Physical Exam Vital Signs - First Documented 01/15/20 03:20 Temp 36.4 Pulse 73 Resp 16 B/P (MAP) 124/78 (93) O2 Delivery Room Air Capillary Refill : Height, Weight, BMI Height: 5'3.00" Weight: 275lbs. 5.0oz. 124.218248dr; 40.00 BMI Method:Stated General Appearance: WD/WN, no apparent distress, obese, other (VERY TALKATIVE. SMILING CONTINUOUSLY , VERY COOPERATIVE ON ARRIVAL. PT HAS MULTICOLORED HAIR. WALKS WITHOUT DIFFICULTY FROM THE AMBULANCE, CARRYING A BABY DOLL. ) HEENT: PERRL/EOMI, normal ENT inspection Neck: normal inspection Respiratory: normal breath sounds, no respiratory distress, no accessory muscle use Cardiovascular: regular rate, rhythm, no edema, no JVD, no murmur Gastrointestinal: non tender, soft Extremities: normal inspection, normal capillary refill Neurologic/Psychiatric: no motor/sensory deficits, alert, oriented x 3 Behavior/Eye Contact: cooperative, good eye contact, normal speech Thoughts/Hallucinations: no apparent hallucination Skin: normal color, warm/dry, other (NO EXTERNAL EVIDENCE OF TRAUMA. NO EVIDENCE OF RECENT CUTTING. HAS A FEW VERY OLD SCARS TO INNER ASPECT OF LOWER LEGS. ) Progress/Results/Core Measures Results/Orders Lab Results Laboratory Tests Test 01/15/20 04:03 01/15/20 04:50 Range/Units White Blood Count 9.4 4.3-11.0 10^3/uL Red Blood Count 5.23 H 3.80-5.11 10^6/uL Hemoglobin 13.5 11.5-16.0 g/dL Hematocrit 42 35-52 % Mean Corpuscular Volume 81 80-99 fL Mean Corpuscular Hemoglobin 26 25-34 pg Mean Corpuscular Hemoglobin Concent 32 32-36 g/dL Red Cell Distribution Width 13.6 10.0-14.5 % Platelet Count 333 130-400 10^3/uL Mean Platelet Volume 10.4 9.0-12.2 fL Immature Granulocyte % (Auto) 0 % Neutrophils (%) (Auto) 48 42-75 % Lymphocytes (%) (Auto) 40 12-44 % Monocytes (%) (Auto) 5 0-12 % Eosinophils (%) (Auto) 6 0-10 % Basophils (%) (Auto) 0 0-10 % Neutrophils # (Auto) 4.5 1.8-7.8 10^3/uL Lymphocytes # (Auto) 3.8 1.0-4.0 10^3/uL Monocytes # (Auto) 0.5 0.0-1.0 10^3/uL Eosinophils # (Auto) 0.5 H 0.0-0.3 10^3/uL Basophils # (Auto) 0.0 0.0-0.1 10^3/uL Immature Granulocyte # (Auto) 0.0 0.0-0.1 10^3/uL Sodium Level 139 135-145 MMOL/L Potassium Level 3.3 L 3.6-5.0 MMOL/L Chloride Level 104 98-107 MMOL/L Carbon Dioxide Level 21 21-32 MMOL/L Anion Gap 14 5-14 MMOL/L Blood Urea Nitrogen 7 7-18 MG/DL Creatinine 0.78 0.60-1.30 MG/DL Estimat Glomerular Filtration Rate > 60 BUN/Creatinine Ratio 9 Glucose Level 97 70-105 MG/DL Calcium Level 9.6 8.5-10.1 MG/DL Corrected Calcium 8.5-10.1 MG/DL Total Bilirubin 0.7 0.1-1.0 MG/DL Aspartate Amino Transf (AST/SGOT) 16 5-34 U/L Alanine Aminotransferase (ALT/SGPT) 15 0-55 U/L Alkaline Phosphatase 89 40-136 U/L Total Protein 7.7 6.4-8.2 GM/DL Albumin 4.6 H 3.2-4.5 GM/DL TSH [place] Testing 1.47 0.35-4.94 UIU/ML Serum Test, Qualitative NEGATIVE NEGATIVE Salicylates Level < 5.0 L 5.0-20.0 MG/DL Acetaminophen Level < 10 L 10-30 UG/ML Serum Alcohol < 10 <10 MG/DL Urine Color YELLOW Urine Clarity CLEAR Urine pH 6.0 5-9 Urine Specific [place] 1.020 1.016-1.022 Urine Protein NEGATIVE NEGATIVE Urine Glucose (UA) NEGATIVE NEGATIVE Urine Ketones NEGATIVE NEGATIVE Urine Nitrite POSITIVE H NEGATIVE Urine Bilirubin NEGATIVE NEGATIVE Urine Urobilinogen 0.2 < = 1.0 MG/DL Urine Leukocyte Esterase TRACE H NEGATIVE Urine RBC (Auto) TRACE-I NEGATIVE Urine RBC RARE /HPF Urine WBC 10-25 H /HPF Urine Squamous Epithelial Cells 2-5 /HPF Urine Crystals NONE /LPF Urine Bacteria LARGE H /HPF Urine Casts NONE /LPF Urine Mucus LARGE H /LPF Urine Culture Indicated YES Urine Opiates Screen NEGATIVE NEGATIVE Urine Oxycodone Screen NEGATIVE NEGATIVE Urine Methadone Screen NEGATIVE NEGATIVE Urine Propoxyphene Screen NEGATIVE NEGATIVE Urine Barbiturates Screen NEGATIVE NEGATIVE Ur Tricyclic Antidepressants Screen NEGATIVE NEGATIVE Urine Phencyclidine Screen NEGATIVE NEGATIVE Urine Amphetamines Screen NEGATIVE NEGATIVE Urine Methamphetamines Screen NEGATIVE NEGATIVE Urine Benzodiazepines Screen NEGATIVE NEGATIVE Urine Cocaine Screen NEGATIVE NEGATIVE Urine Cannabinoids Screen NEGATIVE NEGATIVE My Orders Orders - BETTINASHANTELLA K DO Acetaminophen (01/15/20 03:31) Alcohol (01/15/20 03:31) Cbc With Automated Diff (01/15/20 03:31) Comprehensive Metabolic Panel (01/15/20 03:31) Drug Screen Stat (Urine) (01/15/20 03:31) Hcg,Qualitative Serum (01/15/20 03:31) Salicylate (01/15/20 03:31) Ua Culture If Indicated (01/15/20 03:31) Ekg Tracing (01/15/20 03:31) Thyroid Analyzer (01/15/20 04:07) Hydroxyzine Cap/Tab (Vistaril) (01/15/20 05:00) Urine Culture (01/15/20 04:50) Nitrofurantoin Capsule,Macro (Macrobid C (01/15/20 05:15) Potassium Chloride (Tablet) (Klor Con Ta (01/15/20 05:15) Medications Given in ED Current Medications Medications Dose Ordered Sig/Tierney Route Start Time Stop Time Status Last Admin Dose Admin Hydroxyzine Pamoate 50 mg ONCE ONCE PO 01/15/20 05:00 01/15/20 05:01 DC 01/15/20 05:03 50 MG Vital Signs/I&O 01/15/20 03:20 Temp 36.4 Pulse 73 Resp 16 B/P (MAP) 124/78 (93) O2 Delivery Room Air Progress Progress Note : Progress Note UNEVENTFUL ER STAY. LAID ON ER CART WITH HER "BABY DOLL" FOR MOST OF ER STAY 0500--PT STATES SHE IS NOW FEELING GREAT, AND DOES NOT THINK SHE NEEDS TO BE ADMITTED ANYWHERE. STATES "I THINK I JUST NEEDED TO GET AWAY FOR A LITTLE BIT" "I JUST NEEDED A BREAK FOR AWHILE" . 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 Initial ECG Impression Date: Jan 15, 2020 Initial ECG Impression Time: 04:12 Initial ECG Rate: 73 Initial ECG Rhythm: Normal Sinus Initial ECG Comparisson: Unchanged Departure Communication (Admissions) 0513--CALLED [facility] WITH [facility]. SPOKE WITH THE "SCREENER" ( WHO DOES NOT HAVE ANY OF [facility] PROVIDERS NUMBERS/CONTACT INFORMATION, AND DOES NOT KNOW ANY OF THE PROVIDERS) AND DOES NOT HAVE ACCESS TO ANY OF THEIR RECORDS. SHE STATES THAT THERE IS NO ONE BRICKLAYER TENDER FOR [facility] ON THE WEEKENDS, AND THERE IS NO ONE THAT CAN COME IN TO ER TO TALK WITH THE PATIENT. 6712--SPOKE WITH CARLOS REYNOLDS WITH [facility]. HE IS VERY FAMILIAR WITH THE PATIENT, AND IS AGREEABLE TO LETTING HER GO BACK HOME. HE WILL ARRANGE FOR SOMEONE TO SEE HER TODAY AND CHECK ON WELL BEING AND SECURE A SAFETY CONTRACT WITH THE PATINT. Impression Primary Impression: Anxiety Additional Impressions: Passive suicidal ideations UTI (urinary tract infection) Disposition: 01 HOME, SELF-CARE Condition: Improved Departure-Patient Inst. [facility]) Primary Care Physician [facility] Patient Instructions: Anxiety, Adult (DC), Suicide Prevention, Urinary Tract Infection, Adult (DC) Add. Discharge Instructions: TAKE YOUR MEDICATIONS PRESCRIBED, INCLUDING HYDROXYZINE FOLLOW UP WITH [facility] TODAY TO SET UP A SAFETY PLAN RETURN TO ER IF SYMPTOMS WORSEN All discharge instructions reviewed with patient and/or family. Voiced understanding. Scripts Nitrofurantoin Monohyd/M-Cryst (Macrobid 100 mg Capsule) 100 Mg Capsule 1 TAB PO BID, #20 CAP Prov: DAVID DUNBAR DO 01/15/20 DAVID DUNBAR DO Jan 15, 2020 04:05
[2020-01-15 04:12] LABS: BASOPHILS % (AUTO) 0 % (0-10); EOSINOPHILS # (AUTO) 0.5 10^3/uL (0.0-0.3); EOSINOPHILS % (AUTO) 6 % (0-10); HEMATOCRIT 42 % (35-52); HEMOGLOBIN 13.5 g/dL (11.5-16.0); LYMPHOCYTES # (AUTO) 3.8 10^3/uL (1.0-4.0); LYMPHOCYTES % (AUTO) 40 % (12-44); MEAN CORPUSCULAR HEMOGLOBIN 26 pg (25-34); MEAN CORPUSCULAR HGB CONC 32 g/dL (32-36); MEAN CORPUSCULAR VOLUME 81 fL (80-99); MEAN PLATELET VOLUME 10.4 fL (9.0-12.2); MONOCYTES # (AUTO) 0.5 10^3/uL (0.0-1.0); MONOCYTES % (AUTO) 5 % (0-12); NEUTROPHILS # (AUTO) 4.5 10^3/uL (1.8-7.8); NEUTROPHILS % (AUTO) 48 % (42-75); PLATELET COUNT 333 10^3/uL (130-400); WHITE BLOOD COUNT 9.4 10^3/uL (4.3-11.0)
[2020-01-15 04:22] LABS: ALBUMIN 4.6 GM/DL (3.2-4.5); CHLORIDE 104 MMOL/L (98-107); POTASSIUM 3.3 MMOL/L (3.6-5.0); SODIUM 139 MMOL/L (135-145)
[2020-01-15 04:24] LABS: CALCIUM 9.6 MG/DL (8.5-10.1)
[2020-01-15 04:25] LABS: GLUCOSE 97 MG/DL (70-105); TOTAL PROTEIN 7.7 GM/DL (6.4-8.2)
[2020-01-15 04:26] LABS: CARBON DIOXIDE 21 MMOL/L (21-32)
[2020-01-15 04:27] LABS: BILIRUBIN,TOTAL 0.7 MG/DL (0.1-1.0)
[2020-01-15 04:28] LABS: ALKALINE PHOSPHATASE 89 U/L (40-136)
[2020-01-15 04:29] LABS: CREATININE SERUM 0.78 MG/DL (0.60-1.30); GFR ESTIMATED > 60
[2020-01-15 04:30] LABS: BUN/CREATININE RATIO 9
[2020-01-15 04:31] LABS: ACETAMINOPHEN < 10 UG/ML (10-30); SALICYLATE < 5.0 MG/DL (5.0-20.0)
[2020-01-15 04:32] LABS: ALANINE AMINOTRANSFERASE 15 U/L (0-55)
[2020-01-15 04:53] LABS: TSH (THYROID ANALYZER) 1.47 UIU/ML (0.35-4.94)
[2020-01-15 04:56] LABS: BILIRUBIN,URINE NEGATIVE (NEGATIVE); CLARITY,URINE CLEAR; COLOR,URINE YELLOW; GLUCOSE, URINE (UA) NEGATIVE (NEGATIVE); KETONES,URINE NEGATIVE (NEGATIVE); LEUKOCYTE ESTERASE ,URINE TRACE (NEGATIVE); NITRITE,URINE POSITIVE (NEGATIVE); PROTEIN,URINE NEGATIVE (NEGATIVE)
[2020-01-15] MEDS ORDERED: hydrOXYzine (VISTARIL/ATARAX) 25 MG capsule/tablet PO ONE (05:00)
[2020-01-15 05:04] LABS: BACTERIA,URINE LARGE /HPF; RBC,URINE RARE /HPF
[2020-01-15 05:09] LABS: AMPHETAMINE SCREEN, URINE NEGATIVE (NEGATIVE); BARBITURATE SCREEN URINE NEGATIVE (NEGATIVE); BENZODIAZEPINES SCREEN URINE NEGATIVE (NEGATIVE); CANNABINOID SCREEN, URINE NEGATIVE (NEGATIVE); COCAINE SCREEN URINE NEGATIVE (NEGATIVE); METHADONE STAT NEGATIVE (NEGATIVE); METHAMPHETAMINE SCREEN URINE S NEGATIVE (NEGATIVE); OPIATE SCREEN URINE NEGATIVE (NEGATIVE); OXYCODONE STAT NEGATIVE (NEGATIVE); PROPOXYPHENE STAT NEGATIVE (NEGATIVE); TRICYCLIC ANTIDEPRESSANTS SCRE NEGATIVE (NEGATIVE)
[2020-01-15] MEDS ORDERED: KCL 10 MEQ TAB (MICRO K) PO ONE (05:15)
[2020-01-15] MEDS ORDERED: NITROFURANTOIN 100 MG (MACROBID) CAPSULE PO ONE (05:15)
[2020-01-15] MEDS ORDERED: NITR-65 PO (05:38)
[2020-01-15 05:47] VITALS: BP 125/76
== END 2020-01-15 05:49 | disposition home or self-care (01) ==
LOC: EDUNIT# 03:20 → ER 03:21
DX: F41.9 Anxiety disorder, unspecified (principal); R45.851 Suicidal ideations; N39.0 Urinary tract infection, site not specified; E66.9 Obesity, unspecified; E03.9 Hypothyroidism, unspecified; F31.9 Bipolar disorder, unspecified; F17.210 Nicotine dependence, cigarettes, uncomplicated; Z68.41 Body mass index [BMI] 40.0-44.9, adult; Z88.8 Allergy status to other drugs, medicaments and biological substances; Z79.890 Hormone replacement therapy
CPT/HCPCS: 80053; 80306; 81000; 84443; 84703; 85025; 87077; 87088; 87186; 93005; 99283; G0480 ×3; 36415; 80320; 80329

== ENCOUNTER 2020-01-16 22:10 | Emergency (ER) | payer MEDICAID ==
[~2020-01-16] VITALS: Ht 160 cm; Wt 99.7 kg
[2020-01-16] MEDS ORDERED: hydrOXYzine (VISTARIL/ATARAX) 25 MG capsule/tablet PO ONE (22:15)
[2020-01-16 22:26] LABS: BASOPHILS # (AUTO) 0.1 10^3/uL (0.0-0.1); BASOPHILS % (AUTO) 0 % (0-10); EOSINOPHILS # (AUTO) 0.4 10^3/uL (0.0-0.3); EOSINOPHILS % (AUTO) 3 % (0-10); HEMATOCRIT 44 % (35-52); LYMPHOCYTES # (AUTO) 3.8 10^3/uL (1.0-4.0); LYMPHOCYTES % (AUTO) 32 % (12-44); MEAN CORPUSCULAR HEMOGLOBIN 26 pg (25-34); MEAN CORPUSCULAR HGB CONC 32 g/dL (32-36); MEAN CORPUSCULAR VOLUME 82 fL (80-99); MEAN PLATELET VOLUME 10.4 fL (9.0-12.2); MONOCYTES # (AUTO) 0.7 10^3/uL (0.0-1.0); MONOCYTES % (AUTO) 6 % (0-12); NEUTROPHILS # (AUTO) 6.8 10^3/uL (1.8-7.8); NEUTROPHILS % (AUTO) 58 % (42-75); PLATELET COUNT 321 10^3/uL (130-400); WHITE BLOOD COUNT 11.7 10^3/uL (4.3-11.0)
--- NOTE | 2020-01-16 22:30 | ED Psychosocial ---
General Chief Complaint: Psych/Social Disorder Stated Complaint: ANXIETY Nursing Triage Note: PT BROUGHT TO ER BY [facility] FROM A FRIENDS HOUSE WITH COMPLAINT OF ANXIETY. PT STATES SHE WAS WALKING TO ANOTHER ROOM WHEN SHE SUDDENLY BECAME VERY ANXIOUS. pT STATES "I CAN'T SEEM TO FOCUS. I FEEL LIKE I AM GOING TO SNAP". Source: patient, EMS, old records History of Present Illness Date Seen by Provider: Jan 16, 2020 Time Seen by Provider: 22:08 Initial Comments PT ARRIVES VIA EMS PT HAD WALKED TO A FRIEND'S HOUSE AND WALKED INTO ANOTHER ROOM AND SUDDENLY BECAME VERY ANXIOUS, SO EMS WAS CALLED PT SEEN HERE EARLY Friday01/15/20 MORNING FOR SAME, ALSO HAD TRANSIENT SUICIDAL IDEATIONS AT THAT TIME, WHICH RESOLVED AFTER ARRIVAL TO ER. [facility] WAS CONTACTED AND ARRANGEMENTS WERE TO BE MADE FOR SOMEONE TO DO A WELFARE CHECK AND A SAFETY CONTRACT SET UP YESTERDAY. WAS GIVEN A HYDROXYZINE IN ER WITH IMMEDIATE RESOLUTION OF SYMPTOMS PT HAD BEEN GIVEN RX FOR HYDROXYZINE #45 ON 01/11/20, BUT PT CLAIMS TODAY THAT SHE DOESN'T REMEMBER IF SHE HAS TAKEN ANY TODAY OR NOT. STATES "I CAN'T SEEM TO FOCUS. I FEEL LIKE I AM GOING TO SNAP" NO ACTUAL SUICIDAL THOUGHTS OR GESTURES TODAY STATES SHE "CAN'T SLEEP" SEE OLD CHARTS FOR DETAILS PT WITH OVER 30 VISITS HERE, ESSENTIALLY ALL FOR PSYCH RELATED COMPLAINTS PT WITH EXTENSIVE HISTORY OF NONCOMPLIANCE IN ALL ASPECTS OF CARE. PCP: [facility] PSYCH: [facility]. HAS ALSO BEEN TO [facility] Allergies and Home Medications Allergies Coded Allergies: haloperidol (Verified Allergy, Mild, 01/16/20) Home Medications Divalproex Sodium 500 Mg Tab.er.24h, 1,000 MG PO HS, (Reported) TAKES 2 (500MG) TABLETS Fluoxetine HCl 20 Mg Capsule, 20 MG PO HS, (Reported) Hyoscyamine Sulfate 0.125 Mg Tab.subl, 1-2 TAB SL Q4H Prescribed by: DAVID DUNBAR on 11/20/18 0722 Levothyroxine Sodium 25 Mcg Tablet, 25 MCG PO DAILY, (Reported) Nitrofurantoin Monohyd/M-Cryst 100 Mg Capsule, 1 TAB PO BID Prescribed by: DAVID DUNBAR on 01/15/20 0538 Ondansetron 4 Mg Tab.rapdis, 4 MG PO Q4H Prescribed by: DAVID DUNBAR on 11/20/18721 Pantoprazole Sodium 40 Mg Tablet.dr, 40 MG PO DAILY Prescribed by: DAVID DUNBAR on 11/20/18721 Patient Home Medication List Home Medication List Reviewed: Yes Review of Systems Constitutional: no symptoms reported Psychiatric/Neurological: See HPI Past Zstrued-Gysgrq-Yfpatw Hx Past Med/Social Hx: Reviewed and Corrections made Patient Social History Alcohol Use: Occasionally Uses Number of Drinks Today: 1 Alcohol Beverage of Choice: Beer Recreational Drug Use: Yes Drug of Choice: Marijuana Smoking Status: Current Everyday Smoker Type Used: Cigarettes 2nd Hand Smoke Exposure: No Recent Foreign Travel: No Contact w/Someone Who Travel: No Recent Infectious Disease Expo: No Recent Hopitalizations: No Immunizations Up To Date Tetanus Booster (TDap): Unknown Date of Influenza Vaccine: Jan 01, 2018 Seasonal Allergies Seasonal Allergies: No Past Medical History Surgeries: No Respiratory: No Cardiac: No Neurological: Yes Headaches /Migraines Reproductive Disorders: Yes Female Reproductive Disorders: Menstrual Problems Genitourinary: Yes UTI-Chronic Gastrointestinal: No Musculoskeletal: No Endocrine: Yes (OBESITY; REFUSES TO TAKE THYROID MEDICATIONS) Hypothyroidsim HEENT: No Cancer: No Psychosocial: Yes Anxiety, Suicide Attempts, Bipolar, Personality Disorder, Schizophrenia, Depression Integumentary: No Blood Disorders: No Family Medical History Asthma 19 MOTHER No Pertinent Family Hx SOCIAL HISTORY: -ETOH-RARE USE -DRUGS-MARIJUANA -SMOKES 1-2 PPD PSYCH HISTORY--EXTENSIVE PSYCH ISSUES, SUICIDAL "THOUGHTS" BUT ONLY 1 ACTUAL ATTEMPT IN 2017. VERY MANIPULATIVE BEHAVIOR. EXTREME NON-COMPLIANCE IN ALL ASPECTS OF CARE Physical Exam Vital Signs - First Documented 01/16/20 22:10 Temp 37.2 Pulse 126 Resp 23 B/P (MAP) 121/75 (90) Pulse Ox 100 O2 Delivery Room Air Capillary Refill : Less Than 3 Seconds Height, Weight, BMI Height: 5'3.00" Weight: 275lbs. 5.0oz. 124.586672ay; 38.00 BMI Method:Stated General Appearance: WD/WN, obese, other (PT TALKING "BABY TALK" WITH FORCED/INTENTIONAL "STUTTERING" WHICH STOPS WHEN DISTRACTED. PT ALSO KEEPING HER HEAD AND EYES TURNED UP AND TO THE RIGHT. AVOIDING EYE CONTACT. THIS BEHAVIOR IS ALSO COMPLETELY AT WILL, AND STOPS WHEN DISTRACTED. THIS BEHAVIOR ALSO IS NOT OCCURRING WHEN STAFF ARE NOT IN ROOM. PT LAYING QUIETLY WITH HEAD AND EYES IN NORMAL POSITION WHEN STAFF ARE NOT IN ROOM. ) Respiratory: normal breath sounds Cardiovascular: regular rate, rhythm Neurologic/Psychiatric: shuttle spotter II-XII nml as tested, no motor/sensory deficits, alert, other (BEHAVIOR NOTED ABOVE) Behavior/Eye Contact: cooperative Thoughts/Hallucinations: no apparent hallucination Skin: normal color, warm/dry Progress/Results/Core Measures Results/Orders Lab Results Laboratory Tests Test 01/16/20 22:15 01/16/20 22:40 Range/Units White Blood Count 11.7 H 4.3-11.0 10^3/uL Red Blood Count 5.36 H 3.80-5.11 10^6/uL Hemoglobin 14.0 11.5-16.0 g/dL Hematocrit 44 35-52 % Mean Corpuscular Volume 82 80-99 fL Mean Corpuscular Hemoglobin 26 25-34 pg Mean Corpuscular Hemoglobin Concent 32 32-36 g/dL Red Cell Distribution Width 13.8 10.0-14.5 % Platelet Count 321 130-400 10^3/uL Mean Platelet Volume 10.4 9.0-12.2 fL Immature Granulocyte % (Auto) 0 % Neutrophils (%) (Auto) 58 42-75 % Lymphocytes (%) (Auto) 32 12-44 % Monocytes (%) (Auto) 6 0-12 % Eosinophils (%) (Auto) 3 0-10 % Basophils (%) (Auto) 0 0-10 % Neutrophils # (Auto) 6.8 1.8-7.8 10^3/uL Lymphocytes # (Auto) 3.8 1.0-4.0 10^3/uL Monocytes # (Auto) 0.7 0.0-1.0 10^3/uL Eosinophils # (Auto) 0.4 H 0.0-0.3 10^3/uL Basophils # (Auto) 0.1 0.0-0.1 10^3/uL Immature Granulocyte # (Auto) 0.0 0.0-0.1 10^3/uL Sodium Level 141 135-145 MMOL/L Potassium Level 3.3 L 3.6-5.0 MMOL/L Chloride Level 106 98-107 MMOL/L Carbon Dioxide Level 21 21-32 MMOL/L Anion Gap 14 5-14 MMOL/L Blood Urea Nitrogen 8 7-18 MG/DL Creatinine 0.77 0.60-1.30 MG/DL Estimat Glomerular Filtration Rate > 60 BUN/Creatinine Ratio 10 Glucose Level 98 70-105 MG/DL Calcium Level 9.5 8.5-10.1 MG/DL Corrected Calcium 8.5-10.1 MG/DL Total Bilirubin 0.5 0.1-1.0 MG/DL Aspartate Amino Transf (AST/SGOT) 18 5-34 U/L Alanine Aminotransferase (ALT/SGPT) 18 0-55 U/L Alkaline Phosphatase 90 40-136 U/L Total Protein 7.9 6.4-8.2 GM/DL Albumin 4.7 H 3.2-4.5 GM/DL Serum Alcohol < 10 <10 MG/DL Urine Opiates Screen NEGATIVE NEGATIVE Urine Oxycodone Screen NEGATIVE NEGATIVE Urine Methadone Screen NEGATIVE NEGATIVE Urine Propoxyphene Screen NEGATIVE NEGATIVE Urine Barbiturates Screen NEGATIVE NEGATIVE Ur Tricyclic Antidepressants Screen NEGATIVE NEGATIVE Urine Phencyclidine Screen NEGATIVE NEGATIVE Urine Amphetamines Screen NEGATIVE NEGATIVE Urine Methamphetamines Screen NEGATIVE NEGATIVE Urine Benzodiazepines Screen NEGATIVE NEGATIVE Urine Cocaine Screen NEGATIVE NEGATIVE Urine Cannabinoids Screen NEGATIVE NEGATIVE My Orders Orders - DAVID DUNBAR K DO Hydroxyzine Cap/Tab (Vistaril) (01/16/20 22:15) Alcohol (01/16/20 22:11) Cbc With Automated Diff (01/16/20 22:11) Comprehensive Metabolic Panel (01/16/20 22:11) Drug Screen Stat (Urine) (01/16/20 22:11) Potassium Chloride (Tablet) (Klor Con Ta (01/16/20 23:00) Medications Given in ED Current Medications Medications Dose Ordered Sig/Tierney Route Start Time Stop Time Status Last Admin Dose Admin Hydroxyzine Pamoate 50 mg ONCE ONCE PO 01/16/20 22:15 01/16/20 22:16 DC 01/16/20 22:30 50 MG Potassium Chloride 30 meq ONCE ONCE PO 01/16/20 23:00 01/16/20 23:01 DC 01/16/20 23:19 30 MEQ Vital Signs/I&O 01/16/20 01/16/20 22:10 23:54 Temp 37.2 Pulse 126 102 Resp 23 20 B/P (MAP) 121/75 (90) 118/68 Pulse Ox 100 100 O2 Delivery Room Air Room Air Blood Pressure Mean: 90 Progress Progress Note : Progress Note GIVEN HYDROXYZINE WITH IMPROVEMENT IN SYMPTOMS NO SUICIDAL THOUGHTS VOICED AT ANY TIME 2339--PT NOW TALKING IN NORMAL VOICE, NOW STATES "I JUST REMEMBERED YOU GAVE ME A TAXI VOUCHER TO GO HOME YESTERDAY". WITH NO ABNORMAL HEAD OR EYE MOVEMENTS. 2358--PT WALKED OUT OF ER, WITHOUT ANY DIFFICULTY WHATSOEVER, TALKING NORMAL, AND NO ABNORMAL MOVEMENTS. CALM AND COOPERATIVE. Departure Impression Primary Impression: Anxiety Additional Impressions: Conversion disorder Hypokalemia Disposition: HOME, SELF-CARE Condition: Improved Departure-Patient Inst. Referrals: [facility] (PCP/Family) Primary Care Physician Patient Instructions: Anxiety, Adult (DC), Conversion Disorder, Hypokalemia (DC) Add. Discharge Instructions: TAKE YOUR MEDICATIONS PRESCRIBED FOLLOW UP WITH [facility] TOMORROW FOR FURTHER CARE All discharge instructions reviewed with patient and/or family. Voiced understanding. DAVID DUNBAR DO Jan 16, 2020 22:30
[2020-01-16 22:35] LABS: ALBUMIN 4.7 GM/DL (3.2-4.5); CHLORIDE 106 MMOL/L (98-107); POTASSIUM 3.3 MMOL/L (3.6-5.0); SODIUM 141 MMOL/L (135-145)
[2020-01-16 22:36] LABS: CALCIUM 9.5 MG/DL (8.5-10.1)
[2020-01-16 22:38] LABS: GLUCOSE 98 MG/DL (70-105); TOTAL PROTEIN 7.9 GM/DL (6.4-8.2)
[2020-01-16 22:39] LABS: BILIRUBIN,TOTAL 0.5 MG/DL (0.1-1.0); CARBON DIOXIDE 21 MMOL/L (21-32)
[2020-01-16 22:41] LABS: ALKALINE PHOSPHATASE 90 U/L (40-136); CREATININE SERUM 0.77 MG/DL (0.60-1.30); GFR ESTIMATED > 60
[2020-01-16 22:42] LABS: BUN/CREATININE RATIO 10
[2020-01-16 22:44] LABS: ALANINE AMINOTRANSFERASE 18 U/L (0-55)
--- NOTE | 2020-01-16 22:53 | NUR ---
PATIENT IN ROOM RESTING QUIETLY WITH EYES CLOSED. VISUAL MONITORING MAINTAINED. CALL LIGHT IN REACH.
[2020-01-16 22:58] LABS: AMPHETAMINE SCREEN, URINE NEGATIVE (NEGATIVE); BARBITURATE SCREEN URINE NEGATIVE (NEGATIVE); BENZODIAZEPINES SCREEN URINE NEGATIVE (NEGATIVE); CANNABINOID SCREEN, URINE NEGATIVE (NEGATIVE); COCAINE SCREEN URINE NEGATIVE (NEGATIVE); METHADONE STAT NEGATIVE (NEGATIVE); METHAMPHETAMINE SCREEN URINE S NEGATIVE (NEGATIVE); OPIATE SCREEN URINE NEGATIVE (NEGATIVE); OXYCODONE STAT NEGATIVE (NEGATIVE); PROPOXYPHENE STAT NEGATIVE (NEGATIVE); TRICYCLIC ANTIDEPRESSANTS SCRE NEGATIVE (NEGATIVE)
[2020-01-16] MEDS ORDERED: KCL 10 MEQ TAB (MICRO K) PO ONE (23:00)
[2020-01-16 23:54] VITALS: BP 118/68
--- NOTE | 2020-01-16 23:54 | NUR ---
IN ROOM TO DISCHARGE PATIENT, UPON ENTERING PATIENT MAKES EYE CONTACT WITH THIS RN. PATIENT IS LAYING ON HER RIGHT SIDE TURNING HER HEAD TO LOOK AT THIS RN. PATIENT HAS BEEN RESTING AND TURNING SELF IN BED WITHOUT DIFFICULTY WHEN THIS RN IS NOT IN THE ROOM. THIS WAS OBSERVED THROUGH THE OPEN BLINDS SO PATIENT COULD BE MONITORED AFTER ARRIVAL. WHEN GIVEN PAPERWORK PATIENT SITS STRAIGHT UP IN BED AND BEGINS TO RAISE HER VOICE ASKING "SO IM JUST SUPPOSED TO LEAVE?" S RN ATTEMPTS TO DISCUSS DISCHARGE INFORMATION WITH THE PATIENT TO WHICH SHE STATES "DONT WASTE YOUR TIME i WONT REMEMBER ANY OF THIS IN THE MORNING! HOW AM I SUPPOSED TO TELL THEM WHAT WAS SAID HERE TONIGHT?" THIS RN EXPLAINED SHE WOULD HAVE THE ER PAPERWORK TO REFER BACK TO IN ORDER TO HELP HER OR HAND TO THE PEOPLE AT [facility] IF SHE COULD NOT REMEMBER WHAT TO TELL THEM. THE PATIENT IS MAKING EYE CONTACT WITH THIS RN DURING THIS INTERACTION. NOW WHEN SHE IS TOLD TO FOLLOW UP SHE BEGINS TO TURN HER HEAD TO THE RIGHT AND TO LOOK AT THE RIGHT UPPER CORNER OF THE ROOM. PATIENT THEN ASKS "SO I JUST TAKE THE PAPERWORK AND FOLLOW UP WITH [facility] IN THE MORNING" GRABBING THE PAPERS OUT OF THIS RN'S HAND AND SHOVING THEM INTO HER PURSE. PATIENT IS ESCORTED TO THE DISCHARGE REGISTRATION DESK ALL THE WHILE VOICING HER DIAPPROVAL OF US NOT PROVIDING HER A TAXI VOUCHER AND COMPLAINING SHE HAS NO WAY TO GET HOME BECAUSE HER GRANDMOTHER CANNOT DRIVE AFTER DARK. PATIENT IS WALKING UNASSISTED WITH A STEADY GAIT, NO S/SX OF RIGHT UPPER DEVIATION OF HER EYES NOTED AT THIS TIME. PATIENT APPEARS TO HAVE GAINED CONTROL OF HER EYES AND THE INVOLUNTARY TURNING OF HER HEAD AT THIS TIME.
--- NOTE | 2020-01-17 00:05 | NUR ---
REGISTRATION REPORTS PATIENT LEFT WITH A RIDE.
== END 2020-01-16 23:55 | disposition home or self-care (01) ==
LOC: EDUNIT# 22:10 → ER 22:11
DX: F41.9 Anxiety disorder, unspecified (principal); E87.6 Hypokalemia; F44.4 Conversion disorder with motor symptom or deficit; E66.9 Obesity, unspecified; E03.9 Hypothyroidism, unspecified; F31.9 Bipolar disorder, unspecified; F17.210 Nicotine dependence, cigarettes, uncomplicated; Z88.8 Allergy status to other drugs, medicaments and biological substances; Z68.38 Body mass index [BMI] 38.0-38.9, adult; Z79.890 Hormone replacement therapy
CPT/HCPCS: 36415; 80053; 80306; 80320; 85025; 99283

== ENCOUNTER 2020-01-25 14:33 | Emergency (ER) | payer MEDICARE, MEDICAID ==
[~2020-01-25] VITALS: Ht 160 cm; Wt 104.0 kg
--- NOTE | 2020-01-25 14:39 | ED General ---
General Stated Complaint: SUICIDAL IDEATION Source of Information: Patient Exam Limitations: No Limitations History of Present Illness Date Seen by Provider: Jan 25, 2020 Time Seen by Provider: 14:38 Initial Comments ER by EMS from home with reports that she was suicidal. She is here quite frequently for these complaints. She does not have a specific plan but she states that she is getting the urge to kill herself and would like to get that urge to stop. Timing/Duration: 1-2 Days Severity: Moderate Associated Systoms: Denies Symptoms Allergies and Home Medications Allergies Coded Allergies: haloperidol (Verified Allergy, Mild, 01/16/20) Home Medications Divalproex Sodium 500 Mg Tab.er.24h, 1,000 MG PO HS, (Reported) TAKES 2 (500MG) TABLETS Fluoxetine HCl 20 Mg Capsule, 20 MG PO HS, (Reported) Hyoscyamine Sulfate 0.125 Mg Tab.subl, 1-2 TAB SL Q4H Prescribed by: DAVID DUNBAR on 11/20/18721 Levothyroxine Sodium 25 Mcg Tablet, 25 MCG PO DAILY, (Reported) Nitrofurantoin Monohyd/M-Cryst 100 Mg Capsule, 1 TAB PO BID Prescribed by: DAVID DUNBAR on 01/15/20 0538 Ondansetron 4 Mg Tab.rapdis, 4 MG PO Q4H Prescribed by: DAVID DUNBAR on 11/20/18721 Pantoprazole Sodium 40 Mg Tablet.dr, 40 MG PO DAILY Prescribed by: DAVID DUNBAR on 11/20/18721 Patient Home Medication List Home Medication List Reviewed: Yes Review of Systems Review of Systems Constitutional: see HPI EENTM: see HPI Respiratory: no symptoms reported Cardiovascular: no symptoms reported Genitourinary: no symptoms reported Musculoskeletal: no symptoms reported Skin: no symptoms reported Psychiatric/Neurological: See HPI, Depressed, Emotional Problems Hematologic/Lymphatic: No Symptoms Reported Immunological/Allergic: no symptoms reported Past Ymrbcxu-Qwyfnj-Lllnik Hx Patient Social History Alcohol Beverage of Choice: Beer Drug of Choice: Marijuana Type Used: Cigarettes 2nd Hand Smoke Exposure: No Recent Hopitalizations: No Immunizations Up To Date Tetanus Booster (TDap): Unknown Date of Influenza Vaccine: Jan 01, 2018 Seasonal Allergies Seasonal Allergies: No Past Medical History Surgeries: No Respiratory: No Cardiac: No Neurological: Yes Headaches /Migraines Reproductive Disorders: Yes Female Reproductive Disorders: Menstrual Problems Genitourinary: Yes UTI-Chronic Gastrointestinal: No Musculoskeletal: No Endocrine: Yes (OBESITY; REFUSES TO TAKE THYROID MEDICATIONS) Hypothyroidsim HEENT: No Cancer: No Psychosocial: Yes Anxiety, Suicide Attempts, Bipolar, Personality Disorder, Schizophrenia, Depression Integumentary: No Blood Disorders: No Family Medical History Asthma 19 MOTHER No Pertinent Family Hx SOCIAL HISTORY: -ETOH-RARE USE -DRUGS-MARIJUANA -SMOKES 1-2 PPD PSYCH HISTORY--EXTENSIVE PSYCH ISSUES, SUICIDAL "THOUGHTS" BUT ONLY 1 ACTUAL ATTEMPT IN 2017. VERY MANIPULATIVE BEHAVIOR. EXTREME NON-COMPLIANCE IN ALL ASPECTS OF CARE Physical Exam Vital Signs Vital Signs - First Documented 01/25/20 15:00 Temp 36.2 Pulse 110 Resp 18 B/P (MAP) 132/77 (95) Pulse Ox 97 Capillary Refill : Height, Weight, BMI Height: 5'3.00" Weight: 275lbs. 5.0oz. 124.487754yu; 38.00 BMI Method:Stated General Appearance: No Apparent Distress, WD/WN, Anxious, Obese Eyes: Bilateral Eye Normal Inspection HEENT: PERRL/EOMI, TMs Normal Neck: Full Range of Motion, Normal Inspection Respiratory: Normal Breath Sounds, No Accessory Muscle Use, No Respiratory Distress Cardiovascular: Regular Rate, Rhythm, Normal Peripheral Pulses Gastrointestinal: Normal Bowel Sounds, Non Tender, Soft Extremity: Normal Capillary Refill, Normal Inspection Neurologic/Psychiatric: Alert, Oriented x3 Skin: Normal Color, Warm/Dry Progress/Results/Core Measures Suspected Sepsis SIRS Temperature: Pulse: Respiratory Rate: Laboratory Tests 01/25/20 15:07: White Blood Count 7.7 Blood Pressure / Mean: Laboratory Tests 01/25/20 15:07: Creatinine 0.73, Platelet Count 323, Total Bilirubin 0.3 Results/Orders Lab Results Laboratory Tests Test 01/25/20 15:07 Range/Units White Blood Count 7.7 4.3-11.0 10^3/uL Red Blood Count 5.00 4.35-5.85 10^6/uL Hemoglobin 13.1 11.5-16.0 G/DL Hematocrit 41 35-52 % Mean Corpuscular Volume 82 80-99 FL Mean Corpuscular Hemoglobin 26 25-34 PG Mean Corpuscular Hemoglobin Concent 32 32-36 G/DL Red Cell Distribution Width 14.1 10.0-14.5 % Platelet Count 323 130-400 10^3/uL Mean Platelet Volume 10.3 7.4-10.4 FL Immature Granulocyte % (Auto) 0 % Neutrophils (%) (Auto) 57 42-75 % Lymphocytes (%) (Auto) 33 12-44 % Monocytes (%) (Auto) 6 0-12 % Eosinophils (%) (Auto) 3 0-10 % Basophils (%) (Auto) 1 0-10 % Neutrophils # (Auto) 4.4 1.8-7.8 X 10^3 Lymphocytes # (Auto) 2.6 1.0-4.0 X 10^3 Monocytes # (Auto) 0.5 0.0-1.0 X 10^3 Eosinophils # (Auto) 0.2 0.0-0.3 10^3/uL Basophils # (Auto) 0.0 0.0-0.1 10^3/uL Immature Granulocyte # (Auto) 0.0 0.0-0.1 10^3/uL Sodium Level 141 135-145 MMOL/L Potassium Level 4.1 3.6-5.0 MMOL/L Chloride Level 106 98-107 MMOL/L Carbon Dioxide Level 23 21-32 MMOL/L Anion Gap 12 5-14 MMOL/L Blood Urea Nitrogen 6 L 7-18 MG/DL Creatinine 0.73 0.60-1.30 MG/DL Estimat Glomerular Filtration Rate > 60 BUN/Creatinine Ratio 8 Glucose Level 88 70-105 MG/DL Calcium Level 8.9 8.5-10.1 MG/DL Corrected Calcium 8.7 8.5-10.1 MG/DL Total Bilirubin 0.3 0.1-1.0 MG/DL Aspartate Amino Transf (AST/SGOT) 28 5-34 U/L Alanine Aminotransferase (ALT/SGPT) 21 0-55 U/L Alkaline Phosphatase 78 40-136 U/L Total Protein 7.2 6.4-8.2 GM/DL Albumin 4.3 3.2-4.5 GM/DL Salicylates Level < 5.0 L 5.0-20.0 MG/DL Acetaminophen Level < 10 L 10-30 UG/ML Serum Alcohol < 10 <10 MG/DL My Orders Orders - DANI MARTIN APRN Olanzapine Orally Dissolve Tab (Zyprexa (01/25/20 14:45) Cbc With Automated Diff (01/25/20 14:36) Comprehensive Metabolic Panel (01/25/20 14:36) Ua Culture If Indicated (01/25/20 14:36) Drug Screen Stat (Urine) (01/25/20 14:36) Alcohol (01/25/20 14:36) Salicylate (01/25/20 14:36) Acetaminophen (01/25/20 14:36) Ekg Tracing (01/25/20 14:36) Ns Iv 500 Ml (Sodium Chloride 0.9%) (01/25/20 15:15) Ketamine Syringe (Ed Only) (Ketamine Syr (01/25/20 15:15) Medications Given in ED Current Medications Medications Dose Ordered Sig/Tierney Route Start Time Stop Time Status Last Admin Dose Admin Ketamine HCl 50 mg ONCE ONCE IV 01/25/20 15:15 01/25/20 15:16 DC 01/25/20 15:30 50 MG Vital Signs/I&O 01/25/20 15:00 Temp 36.2 Pulse 110 Resp 18 B/P (MAP) 132/77 (95) Pulse Ox 97 Capillary Refill : Departure Communication (Admissions) 1522-Will try ketamine 0.5mg/kg IV infusion over 30 mintues for her suicidality. 1611-has only had about one quarter of the ketamine dose. She states she feels better and would like to go home and is not suicidal anymore. However, I doubt this effect is from the ketamine. Impression Primary Impression: Depression Qualified Codes: F32.9 - Major depressive disorder, single episode, unspecified Disposition: 01 HOME, SELF-CARE Condition: Stable Departure-Patient Inst. Decision time for Depature: 16:12 Referrals: [facility] (PCP/Family) Primary Care Physician Patient Instructions: Depression DANI MARTIN APRN Jan 25, 2020 14:39
[2020-01-25] MEDS ORDERED: OLANZapine 5 MG ODT (ZyPREXA ZYDIS) PO ONE (14:45)
[2020-01-25] MEDS ORDERED: NS IV 500 ML 500 ML IV SCH (15:15)
[2020-01-25] MEDS ORDERED: KETAMINE/NaCl 50 MG/5 ML SYRINGE (ED ONLY) IV ONE (15:15)
[2020-01-25 15:26] LABS: ALBUMIN 4.3 GM/DL (3.2-4.5); CHLORIDE 106 MMOL/L (98-107); POTASSIUM 4.1 MMOL/L (3.6-5.0); SODIUM 141 MMOL/L (135-145)
[2020-01-25 15:27] LABS: CALCIUM 8.9 MG/DL (8.5-10.1); HEMATOCRIT 41 % (35-52); HEMOGLOBIN 13.1 G/DL (11.5-16.0); MEAN CORPUSCULAR HEMOGLOBIN 26 PG (25-34); MEAN CORPUSCULAR HGB CONC 32 G/DL (32-36); MEAN CORPUSCULAR VOLUME 82 FL (80-99); WHITE BLOOD COUNT 7.7 10^3/uL (4.3-11.0)
[2020-01-25 15:28] LABS: BASOPHILS % (AUTO) 1 % (0-10); EOSINOPHILS % (AUTO) 3 % (0-10); LYMPHOCYTES % (AUTO) 33 % (12-44); MEAN PLATELET VOLUME 10.3 FL (7.4-10.4); MONOCYTES % (AUTO) 6 % (0-12); NEUTROPHILS # (AUTO) 4.4 X 10^3 (1.8-7.8); NEUTROPHILS % (AUTO) 57 % (42-75); PLATELET COUNT 323 10^3/uL (130-400)
[2020-01-25 15:29] LABS: EOSINOPHILS # (AUTO) 0.2 10^3/uL (0.0-0.3); GLUCOSE 88 MG/DL (70-105); LYMPHOCYTES # (AUTO) 2.6 X 10^3 (1.0-4.0); MONOCYTES # (AUTO) 0.5 X 10^3 (0.0-1.0); TOTAL PROTEIN 7.2 GM/DL (6.4-8.2)
[2020-01-25 15:30] LABS: CARBON DIOXIDE 23 MMOL/L (21-32)
[2020-01-25 15:31] LABS: BILIRUBIN,TOTAL 0.3 MG/DL (0.1-1.0)
[2020-01-25 15:32] LABS: ALKALINE PHOSPHATASE 78 U/L (40-136); CREATININE SERUM 0.73 MG/DL (0.60-1.30); GFR ESTIMATED > 60
[2020-01-25 15:34] LABS: BUN/CREATININE RATIO 8
[2020-01-25 15:35] LABS: SALICYLATE < 5.0 MG/DL (5.0-20.0)
[2020-01-25 15:36] LABS: ALANINE AMINOTRANSFERASE 21 U/L (0-55)
[2020-01-25 16:07] LABS: ACETAMINOPHEN < 10 UG/ML (10-30)
[2020-01-25 16:33] VITALS: BP 124/74
== END 2020-01-25 16:33 | disposition home or self-care (01) ==
LOC: EDUNIT# 14:33 → ER 14:36
DX: F32.9 Major depressive disorder, single episode, unspecified (principal); F41.9 Anxiety disorder, unspecified; E66.9 Obesity, unspecified; G43.909 Migraine, unspecified, not intractable, without status migrainosus; E03.9 Hypothyroidism, unspecified; Z68.38 Body mass index [BMI] 38.0-38.9, adult; Z79.890 Hormone replacement therapy; Z88.8 Allergy status to other drugs, medicaments and biological substances
CPT/HCPCS: 80053; 85025; 93005; 99284; G0480 ×3; 36415; 80320; 80329

== ENCOUNTER 2020-03-24 02:04 | Emergency (ER) | payer MEDICARE, MEDICAID ==
[~2020-03-24] VITALS: Ht 160 cm; Wt 104.8 kg
--- NOTE | 2020-03-24 02:20 | NUR ---
urine specimen requested, pt unable to void at this time.
[2020-03-24 02:51] LABS: BASOPHILS # (AUTO) 0.1 10^3/uL (0.0-0.1); BASOPHILS % (AUTO) 1 % (0-10); EOSINOPHILS % (AUTO) 7 % (0-10); HEMATOCRIT 45 % (35-52); HEMOGLOBIN 14.4 g/dL (11.5-16.0); LYMPHOCYTES # (AUTO) 4.5 10^3/uL (1.0-4.0); LYMPHOCYTES % (AUTO) 34 % (12-44); MEAN CORPUSCULAR HEMOGLOBIN 26 pg (25-34); MEAN CORPUSCULAR HGB CONC 32 g/dL (32-36); MEAN CORPUSCULAR VOLUME 82 fL (80-99); MEAN PLATELET VOLUME 10.2 fL (9.0-12.2); MONOCYTES # (AUTO) 0.9 10^3/uL (0.0-1.0); MONOCYTES % (AUTO) 7 % (0-12); NEUTROPHILS # (AUTO) 6.9 10^3/uL (1.8-7.8); NEUTROPHILS % (AUTO) 51 % (42-75); PLATELET COUNT 346 10^3/uL (130-400); WHITE BLOOD COUNT 13.3 10^3/uL (4.3-11.0)
[2020-03-24 03:03] LABS: ALBUMIN 4.5 GM/DL (3.2-4.5); CHLORIDE 103 MMOL/L (98-107); POTASSIUM 3.3 MMOL/L (3.6-5.0); SODIUM 139 MMOL/L (135-145)
[2020-03-24 03:04] LABS: CALCIUM 9.5 MG/DL (8.5-10.1)
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
[2020-03-24 03:06] LABS: GLUCOSE 94 MG/DL (70-105); TOTAL PROTEIN 7.7 GM/DL (6.4-8.2)
[2020-03-24 03:07] LABS: BILIRUBIN,TOTAL 0.5 MG/DL (0.1-1.0); CARBON DIOXIDE 24 MMOL/L (21-32)
[2020-03-24 03:09] LABS: ALKALINE PHOSPHATASE 99 U/L (40-136); CREATININE SERUM 0.73 MG/DL (0.60-1.30); GFR ESTIMATED > 60
[2020-03-24 03:11] LABS: BUN/CREATININE RATIO 12
[2020-03-24 03:12] LABS: SALICYLATE < 5.0 MG/DL (5.0-20.0)
[2020-03-24 03:13] LABS: ALANINE AMINOTRANSFERASE 19 U/L (0-55)
[2020-03-24 03:19] LABS: BILIRUBIN,URINE NEGATIVE (NEGATIVE); CLARITY,URINE CLEAR; COLOR,URINE YELLOW; GLUCOSE, URINE (UA) NEGATIVE (NEGATIVE); KETONES,URINE NEGATIVE (NEGATIVE); LEUKOCYTE ESTERASE ,URINE NEGATIVE (NEGATIVE); NITRITE,URINE NEGATIVE (NEGATIVE); PH,URINE 6.5 (5-9); PROTEIN,URINE NEGATIVE (NEGATIVE)
[2020-03-24 03:23] LABS: ACETAMINOPHEN < 10 UG/ML (10-30)
[2020-03-24 03:33] LABS: AMPHETAMINE SCREEN, URINE NEGATIVE (NEGATIVE); BACTERIA,URINE NEGATIVE /HPF; BARBITURATE SCREEN URINE NEGATIVE (NEGATIVE); BENZODIAZEPINES SCREEN URINE NEGATIVE (NEGATIVE); CANNABINOID SCREEN, URINE NEGATIVE (NEGATIVE); COCAINE SCREEN URINE NEGATIVE (NEGATIVE); METHADONE STAT NEGATIVE (NEGATIVE); METHAMPHETAMINE SCREEN URINE S NEGATIVE (NEGATIVE); OPIATE SCREEN URINE NEGATIVE (NEGATIVE); OXYCODONE STAT NEGATIVE (NEGATIVE); PROPOXYPHENE STAT NEGATIVE (NEGATIVE); TRICYCLIC ANTIDEPRESSANTS SCRE NEGATIVE (NEGATIVE)
[2020-03-24 03:34] LABS: TSH (THYROID ANALYZER) 3.79 UIU/ML (0.35-4.94)
[2020-03-24 03:55] VITALS: BP 115/87
== END 2020-03-24 04:00 | disposition home or self-care (01) ==
LOC: EDUNIT# 02:04 → ER 02:07
DX: R45.851 Suicidal ideations (principal); F31.9 Bipolar disorder, unspecified; E03.9 Hypothyroidism, unspecified; E66.9 Obesity, unspecified; F17.210 Nicotine dependence, cigarettes, uncomplicated; Z20.822 Contact with and (suspected) exposure to COVID-19; Z88.8 Allergy status to other drugs, medicaments and biological substances; Z68.41 Body mass index [BMI] 40.0-44.9, adult; Z79.890 Hormone replacement therapy
CPT/HCPCS: 80053; 80306; 81000; 84443; 84703; 85025; 93005; 99283; G0480 ×3; U0002; 36415; 80320; 80329; 87635

== ENCOUNTER 2020-05-11 06:35 | Emergency (ER) | payer MEDICARE, MEDICAID ==
[~2020-05-11] VITALS: Ht 160 cm; Wt 106.5 kg
--- NOTE | 2020-05-11 07:09 | ED Psychosocial ---
General Stated Complaint: SHAKING,PSYCH Source: patient Exam Limitations: no limitations History of Present Illness Date Seen by Provider: May 11, 2020 Time Seen by Provider: 06:36 Initial Comments Patient presents the ER by EMS from home with chief complaint since Friday, about 5 days ago she has been having uncontrollable tremor. She said the only thing different lately as she has been doing a lot of driving. No new medications or dosing changes. She is not been having any interpersonal relationship difficulties that are new. She denies suicidal or homicidal ideation. She states she takes multiple psychiatric medications and when asked what she thinks might be causing her symptoms she states, "conversion disorder." She denies any cough fever chills shortness of breath nausea vomiting diarrhea. She is a difficult historian giving mostly 1 or 2 word answers. Allergies and Home Medications Allergies Coded Allergies: haloperidol (Verified Allergy, Mild, 01/16/20) Home Medications Divalproex Sodium 500 Mg Tab.er.24h, 1,000 MG PO HS, (Reported) TAKES 2 (500MG) TABLETS Fluoxetine HCl 20 Mg Capsule, 20 MG PO HS, (Reported) Hyoscyamine Sulfate 0.125 Mg Tab.subl, 1-2 TAB SL Q4H Prescribed by: DAVID DUNBAR on 11/20/18721 Levothyroxine Sodium 25 Mcg Tablet, 25 MCG PO DAILY, (Reported) Nitrofurantoin Monohyd/M-Cryst 100 Mg Capsule, 1 TAB PO BID Prescribed by: DAVID DUNBAR on 01/15/20 0538 Ondansetron 4 Mg Tab.rapdis, 4 MG PO Q4H Prescribed by: DAVID DUNBAR on 11/20/18721 Pantoprazole Sodium 40 Mg Tablet.dr, 40 MG PO DAILY Prescribed by: DAVID DUNBAR on 11/20/18721 Patient Home Medication List Home Medication List Reviewed: Yes Review of Systems Constitutional: No chills, No fever EENTM: No ear discharge, No ear pain Respiratory: No cough, No short of breath Cardiovascular: No chest pain, No edema, No palpitations Gastrointestinal: No abdominal pain, No nausea, No vomiting Genitourinary: No discharge, No dysuria All Other Systems Reviewed Negative Unless Noted: Yes Past Efwxupi-Ltrpvz-Vjqlcf Hx Patient Social History Alcohol Beverage of Choice: Beer Drug of Choice: cannibus Type Used: Cigarettes 2nd Hand Smoke Exposure: No Recent Hopitalizations: No Immunizations Up To Date Tetanus Booster (TDap): Unknown Date of Influenza Vaccine: Jan 01, 2018 Seasonal Allergies Seasonal Allergies: No Past Medical History Surgeries: No Respiratory: No Cardiac: No Neurological: Yes Headaches /Migraines Reproductive Disorders: Yes Female Reproductive Disorders: Menstrual Problems Genitourinary: Yes UTI-Chronic Gastrointestinal: No Musculoskeletal: No Endocrine: Yes (OBESITY; REFUSES TO TAKE THYROID MEDICATIONS) Hypothyroidsim HEENT: No Cancer: No Psychosocial: Yes (CONVERSION DISORDER) Anxiety, Suicide Attempts, Bipolar, Personality Disorder, Schizophrenia, Depression Integumentary: No Blood Disorders: No Family Medical History Asthma 19 MOTHER No Pertinent Family Hx SOCIAL HISTORY: -ETOH-RARE USE -DRUGS-MARIJUANA -SMOKES 1-2 PPD PSYCH HISTORY--EXTENSIVE PSYCH ISSUES, SUICIDAL "THOUGHTS" BUT ONLY 1 ACTUAL ATTEMPT IN 2017. VERY MANIPULATIVE BEHAVIOR. EXTREME NON-COMPLIANCE IN ALL ASPECTS OF CARE Physical Exam Vital Signs - First Documented 05/11/20 06:36 Temp 35.4 Pulse 115 Resp 18 B/P (MAP) 128/92 (104) Pulse Ox 97 O2 Delivery Room Air Capillary Refill : Height, Weight, BMI Height: 5'3.00" Weight: 275lbs. 5.0oz. 124.438770tw; 40.00 BMI Method:Stated General Appearance: WD/WN, mild distress HEENT: PERRL/EOMI (4 mm reactive bilateral symmetric); No pharynx normal (Oral mucosa is mildly dry) Neck: full range of motion, normal inspection Respiratory: no respiratory distress, no accessory muscle use Cardiovascular: normal peripheral pulses, regular rate, rhythm Peripheral Pulses: 2+ Radial Pulses (R), 2+ Radial Pulses (L) Gastrointestinal: non tender, soft Neurologic/Psychiatric: alert, oriented x 3, other (Flat affect, unblinking but makes eye contact) Appearance/Memory: no memory impairment, disheveled Behavior/Eye Contact: cooperative, good eye contact, decreased rate of speech Thoughts/Hallucinations: no apparent hallucination Skin: normal color, warm/dry Progress/Results/Core Measures Results/Orders Lab Results Laboratory Tests Test 05/11/20 07:02 05/11/20 07:07 Range/Units White Blood Count 9.5 4.3-11.0 10^3/uL Red Blood Count 5.42 H 3.80-5.11 10^6/uL Hemoglobin 14.3 11.5-16.0 g/dL Hematocrit 44 35-52 % Mean Corpuscular Volume 82 80-99 fL Mean Corpuscular Hemoglobin 26 25-34 pg Mean Corpuscular Hemoglobin Concent 32 32-36 g/dL Red Cell Distribution Width 14.1 10.0-14.5 % Platelet Count 335 130-400 10^3/uL Mean Platelet Volume 11.3 9.0-12.2 fL Immature Granulocyte % (Auto) 0 % Neutrophils (%) (Auto) 67 42-75 % Lymphocytes (%) (Auto) 24 12-44 % Monocytes (%) (Auto) 8 0-12 % Eosinophils (%) (Auto) 1 0-10 % Basophils (%) (Auto) 1 0-10 % Neutrophils # (Auto) 6.3 1.8-7.8 10^3/uL Lymphocytes # (Auto) 2.2 1.0-4.0 10^3/uL Monocytes # (Auto) 0.8 0.0-1.0 10^3/uL Eosinophils # (Auto) 0.1 0.0-0.3 10^3/uL Basophils # (Auto) 0.1 0.0-0.1 10^3/uL Immature Granulocyte # (Auto) 0.0 0.0-0.1 10^3/uL Sodium Level 139 135-145 MMOL/L Potassium Level 3.5 L 3.6-5.0 MMOL/L Chloride Level 105 98-107 MMOL/L Carbon Dioxide Level 24 21-32 MMOL/L Anion Gap 10 5-14 MMOL/L Blood Urea Nitrogen 5 L 7-18 MG/DL Creatinine 0.76 0.60-1.30 MG/DL Estimat Glomerular Filtration Rate > 60 BUN/Creatinine Ratio 7 Glucose Level 104 70-105 MG/DL Calcium Level 9.5 8.5-10.1 MG/DL Corrected Calcium 9.1 8.5-10.1 MG/DL Total Bilirubin 0.6 0.1-1.0 MG/DL Aspartate Amino Transf (AST/SGOT) 26 5-34 U/L Alanine Aminotransferase (ALT/SGPT) 35 0-55 U/L Alkaline Phosphatase 101 40-136 U/L C-Reactive Protein High Sensitivity 0.64 H 0.00-0.50 MG/DL Total Protein 7.4 6.4-8.2 GM/DL Albumin 4.5 3.2-4.5 GM/DL Urine Color YELLOW Urine Clarity CLEAR Urine pH 6.0 5-9 Urine Specific [place] 1.025 H 1.016-1.022 Urine Protein TRACE H NEGATIVE Urine Glucose (UA) NEGATIVE NEGATIVE Urine Ketones NEGATIVE NEGATIVE Urine Nitrite NEGATIVE NEGATIVE Urine Bilirubin NEGATIVE NEGATIVE Urine Urobilinogen 0.2 < = 1.0 MG/DL Urine Leukocyte Esterase NEGATIVE NEGATIVE Urine RBC (Auto) NEGATIVE NEGATIVE Urine RBC NONE /HPF Urine WBC 0-2 /HPF Urine Squamous Epithelial Cells 2-5 /HPF Urine Crystals NONE /LPF Urine Bacteria TRACE /HPF Urine Casts PRESENT /LPF Urine Hyaline Casts >50 H /LPF Urine Mucus MODERATE H /LPF Urine Culture Indicated NO Urine Opiates Screen NEGATIVE NEGATIVE Urine Oxycodone Screen NEGATIVE NEGATIVE Urine Methadone Screen NEGATIVE NEGATIVE Urine Propoxyphene Screen NEGATIVE NEGATIVE Urine Barbiturates Screen NEGATIVE NEGATIVE Ur Tricyclic Antidepressants Screen NEGATIVE NEGATIVE Urine Phencyclidine Screen NEGATIVE NEGATIVE Urine Amphetamines Screen NEGATIVE NEGATIVE Urine Methamphetamines Screen NEGATIVE NEGATIVE Urine Benzodiazepines Screen NEGATIVE NEGATIVE Urine Cocaine Screen NEGATIVE NEGATIVE Urine Cannabinoids Screen NEGATIVE NEGATIVE My Orders Orders - NANCY FLORES Benztropine Injection (Cogentin Injectio (05/11/20 07:15) Lorazepam Injection (Ativan Injection) (05/11/20 07:15) Cbc With Automated Diff (05/11/20 07:01) Comprehensive Metabolic Panel (05/11/20 07:01) Hs C Reactive Protein (05/11/20 07:01) Ua Culture If Indicated (05/11/20 07:01) Urine Bedside (05/11/20 07:01) Drug Screen Stat (Urine) (05/11/20 07:01) Lactated Ringers (Lr 1000 Ml Iv Solution (05/11/20 07:15) Medications Given in ED Current Medications Medications Dose Ordered Sig/Tierney Route Start Time Stop Time Status Last Admin Dose Admin Benztropine Mesylate 2 mg ONCE ONCE IV 05/11/20 07:15 05/11/20 07:16 DC 05/11/20 07:32 2 MG Lactated Ringer's 1,000 ml @ 0 mls/hr Q0M ONCE IV 05/11/20 07:15 05/11/20 07:16 DC 05/11/20 07:26 1,000 MLS/HR Lorazepam 1 mg ONCE ONCE IVP 05/11/20 07:15 05/11/20 07:16 DC 05/11/20 07:28 1 MG Vital Signs/I&O 05/11/20 06:36 Temp 35.4 Pulse 115 Resp 18 B/P (MAP) 128/92 (104) Pulse Ox 97 O2 Delivery Room Air Progress Progress Note #1: Time: 07:09 Progress Note Plan to check some labs and urine. She has a septic vital signs. Suspect this could be either medication or psychiatric related so we will trial some Cogentin and a small dose of Ativan. She is not having dystonic jerking motion but she does have some intentional tremor. Her oral mucosa is dry and she has mild tachycardia so we will give her a liter of fluids. Progress Note #2: Time: 07:51 Progress Note Patient had significant improvement shortly after parenteral Cogentin. We are going to send her out with some every 8 hour Cogentin and have her follow-up with her psychiatrist, Dr. Coats. Departure Impression Primary Impression: Acute dystonic reaction due to drugs Disposition: 01 HOME, SELF-CARE Condition: Improved Departure-Patient Inst. Decision time for Depature: 07:52 Referrals: [facility] (PCP) Primary Care Physician ES MACE (Family) Primary Care Physician Patient Instructions: Dystonia Add. Discharge Instructions: I suspect some of your medications may have contributed to a dystonic reaction causing you to feel poorly. The Cogentin seem to help so if the symptoms come back over the next couple days you may take 1 tablet of Cogentin by mouth every 8 hours if necessary. Cogentin can cause you to be drowsy so you should not drive under its influence. Continue taking your medications as prescribed for now and call your psychiatri st and make an appointment to discuss what you should do next. Scripts Benztropine Mesylate (Benztropine Mesylate) 1 Mg Tablet 1 MG PO Q6H PRN for dystonia, #9 TAB 0 Refills Prov: NANCY FLORES 05/11/20 Copy Copies To 1: LCEO YANG TITUS J May 11, 2020 07:09
[2020-05-11] MEDS ORDERED: LACTATED RINGERS 1,000 ML IV ONE (07:15)
[2020-05-11] MEDS ORDERED: LORazepam INJ 2 MG/ML (ATIVAN) VIAL IVP ONE (07:15)
[2020-05-11] MEDS ORDERED: BENZTROPINE 2 MG/2 ML INJ (COGENTIN) AMP IV ONE (07:15)
[2020-05-11 07:18] LABS: BILIRUBIN,URINE NEGATIVE (NEGATIVE); CLARITY,URINE CLEAR; COLOR,URINE YELLOW; GLUCOSE, URINE (UA) NEGATIVE (NEGATIVE); KETONES,URINE NEGATIVE (NEGATIVE); LEUKOCYTE ESTERASE ,URINE NEGATIVE (NEGATIVE); NITRITE,URINE NEGATIVE (NEGATIVE); PROTEIN,URINE TRACE (NEGATIVE)
[2020-05-11 07:22] LABS: BASOPHILS # (AUTO) 0.1 10^3/uL (0.0-0.1); BASOPHILS % (AUTO) 1 % (0-10); EOSINOPHILS # (AUTO) 0.1 10^3/uL (0.0-0.3); EOSINOPHILS % (AUTO) 1 % (0-10); HEMATOCRIT 44 % (35-52); HEMOGLOBIN 14.3 g/dL (11.5-16.0); LYMPHOCYTES # (AUTO) 2.2 10^3/uL (1.0-4.0); LYMPHOCYTES % (AUTO) 24 % (12-44); MEAN CORPUSCULAR HEMOGLOBIN 26 pg (25-34); MEAN CORPUSCULAR HGB CONC 32 g/dL (32-36); MEAN CORPUSCULAR VOLUME 82 fL (80-99); MEAN PLATELET VOLUME 11.3 fL (9.0-12.2); MONOCYTES # (AUTO) 0.8 10^3/uL (0.0-1.0); MONOCYTES % (AUTO) 8 % (0-12); NEUTROPHILS # (AUTO) 6.3 10^3/uL (1.8-7.8); NEUTROPHILS % (AUTO) 67 % (42-75); PLATELET COUNT 335 10^3/uL (130-400); WHITE BLOOD COUNT 9.5 10^3/uL (4.3-11.0)
[2020-05-11 07:23] LABS: ALBUMIN 4.5 GM/DL (3.2-4.5)
[2020-05-11 07:24] LABS: CHLORIDE 105 MMOL/L (98-107); POTASSIUM 3.5 MMOL/L (3.6-5.0); SODIUM 139 MMOL/L (135-145)
[2020-05-11 07:25] LABS: CALCIUM 9.5 MG/DL (8.5-10.1)
[2020-05-11 07:26] LABS: GLUCOSE 104 MG/DL (70-105); TOTAL PROTEIN 7.4 GM/DL (6.4-8.2)
[2020-05-11 07:27] LABS: CARBON DIOXIDE 24 MMOL/L (21-32)
[2020-05-11 07:28] LABS: BILIRUBIN,TOTAL 0.6 MG/DL (0.1-1.0)
[2020-05-11 07:29] LABS: ALKALINE PHOSPHATASE 101 U/L (40-136)
[2020-05-11 07:30] LABS: CREATININE SERUM 0.76 MG/DL (0.60-1.30); GFR ESTIMATED > 60
[2020-05-11 07:30] LABS: BACTERIA,URINE TRACE /HPF; HYALINE CASTS, URINE >50 /LPF; WBC,URINE 0-2 /HPF
[2020-05-11 07:31] LABS: BUN/CREATININE RATIO 7
[2020-05-11 07:33] LABS: ALANINE AMINOTRANSFERASE 35 U/L (0-55)
[2020-05-11 07:35] LABS: AMPHETAMINE SCREEN, URINE NEGATIVE (NEGATIVE); BARBITURATE SCREEN URINE NEGATIVE (NEGATIVE); BENZODIAZEPINES SCREEN URINE NEGATIVE (NEGATIVE); CANNABINOID SCREEN, URINE NEGATIVE (NEGATIVE); COCAINE SCREEN URINE NEGATIVE (NEGATIVE); METHADONE STAT NEGATIVE (NEGATIVE); METHAMPHETAMINE SCREEN URINE S NEGATIVE (NEGATIVE); OPIATE SCREEN URINE NEGATIVE (NEGATIVE); OXYCODONE STAT NEGATIVE (NEGATIVE); PROPOXYPHENE STAT NEGATIVE (NEGATIVE); TRICYCLIC ANTIDEPRESSANTS SCRE NEGATIVE (NEGATIVE)
[2020-05-11] MEDS ORDERED: BENZ1TAB6 PO (07:57)
[2020-05-11 08:35] VITALS: BP 104/79
== END 2020-05-11 08:40 | disposition home or self-care (01) ==
LOC: EDUNIT# 06:35 → ER 06:36
DX: G24.02 Drug induced acute dystonia (principal); E03.9 Hypothyroidism, unspecified; E66.9 Obesity, unspecified; F41.9 Anxiety disorder, unspecified; F31.9 Bipolar disorder, unspecified; F20.9 Schizophrenia, unspecified; F60.9 Personality disorder, unspecified; F44.9 Dissociative and conversion disorder, unspecified; Z91.5 Personal history of self-harm; Z79.890 Hormone replacement therapy; Z88.8 Allergy status to other drugs, medicaments and biological substances
CPT/HCPCS: 36415; 80053; 80306; 81000; 84703; 85025; 86141

== ENCOUNTER 2020-11-27 00:56 | Emergency (ER) | payer MEDICARE, MEDICAID ==
[~2020-11-27] VITALS: Ht 160 cm; Wt 111.0 kg
[~2020-11-27 00:56] MED LIST changes: +BENZ1TAB6 PO
--- NOTE | 2020-11-27 01:13 | ED Abdominal Pain ---
General Stated Complaint: ABD PAIN,7WKS Source of Information: Patient, EMS Exam Limitations: No Limitations History of Present Illness Date Seen by Provider: Nov 27, 2020 Time Seen by Provider: 00:53 Initial Comments Patient to the ER by EMS from home with chief complaint that she has been having some abdominal discomfort and occasional difficulty having a bowel movement. She has been having some loose stools. Tonight when she got off the toilet she felt like she was going to pass out for a few moments. She is not on any laxatives. She is taking vitamins. She is a G1 7 weeks and 2 days with an LMP of October 07, 2020. Last intercourse was over a week ago. Nothing in vagina. No bleeding or discharge. She is going to follow-up with Dr. Ryan but has not had her first appointment. She is not having any cramping or low pelvic pain. She has had some occasional nausea but does not taking anything for it. She is not having any nausea now. No fevers chills cough shortness of air. She quit smoking when she had her first positive test November 18. Last oral intake was 8:00. She has been having some increased acid reflux but she states she was taking a lot of orange juice because she thought it might help with her . She does not have a strong history of GERD at baseline Allergies and Home Medications Allergies Coded Allergies: haloperidol (Verified Allergy, Mild, 01/16/20) Patient Home Medication List Home Medication List Reviewed: Yes Benztropine Mesylate (Benztropine Mesylate) 1 Mg Tablet, 1 MG PO Q6H PRN for dystonia Prescribed by: NANCY FLORES on 05/11/20 0757 Divalproex Sodium (Depakote ER) 500 Mg Tab.er.24h, 1,000 MG PO HS, (Reported) Entered as Reported by: RONEN ZAMORA on 01/29/17 1033 Doxylamine/Pyridoxine HCl (Carmela Villanueva 10-10 mg Tablet) 1 Each Tablet.dr, 1 EACH PO Q6H PRN for NAUSEA-1ST LINE Prescribed by: NANCY FLORES on 11/27/20 0119 Fluoxetine HCl (Prozac) 20 Mg Capsule, 20 MG PO HS, (Reported) Entered as Reported by: ROBBIE SAVAGE on 01/29/17 0527 Hyoscyamine Sulfate (Levsin-Sl) 0.125 Mg Tab.subl, 1-2 TAB SL Q4H Prescribed by: DAVID DUNBAR on 11/20/18 07 Levothyroxine Sodium (Synthroid) 25 Mcg Tablet, 25 MCG PO DAILY, (Reported) Entered as Reported by: RICHARD LYNCH on 12/22/16 2144 Nitrofurantoin Monohyd/M-Cryst (Macrobid 100 mg Capsule) 100 Mg Capsule, 1 TAB PO BID Prescribed by: DAVID DUNBAR on 01/15/20 0538 Ondansetron (Ondansetron Odt) 4 Mg Tab.rapdis, 4 MG PO Q4H Prescribed by: DAVID DUNBAR on 11/20/18721 Paliperidone (Invega) 1.5 Mg Tab.er.24, Unknown Dose PO, (Reported) Entered as Reported by: RICHARD LYNCH on 07/14/17 230 Pantoprazole Sodium (Protonix) 40 Mg Tablet.dr, 40 MG PO DAILY Prescribed by: DAVID DUNBAR on 11/20/18721 Review of Systems Review of Systems Constitutional: No chills, No diaphoresis EENTM: No Blurred Vision, No Double Vision Respiratory: Denies Cough, Denies Shortness of Air Cardiovascular: Denies Chest Pain, Denies Lightheadedness Gastrointestinal: Constipated, Diarrhea; Denies Nausea Genitourinary: Denies Burning, Denies Discharge, Denies Frequency Musculoskeletal: No back pain, No joint pain All Other Systems Reviewed Negative Unless Noted: Yes Past Jbxnace-Tsftpo-Wprilt Hx Patient Social History Tobacco Use?: No Tobacco type used: Cigarettes Smoking Status: Former Smoker (Quit November 18) Use of E-Cig and/or Vaping dev: No Substance use?: No Alcohol Use?: No Immunizations Up To Date Tetanus Booster (TDap): Unknown Seasonal Allergies Seasonal Allergies: No Past Medical History Surgeries: No Respiratory: No Cardiac: No Neurological: Yes Headaches /Migraines Reproductive Disorders: Yes Female Reproductive Disorders: Menstrual Problems Genitourinary: Yes UTI-Chronic Gastrointestinal: No Musculoskeletal: No Endocrine: Yes (OBESITY; REFUSES TO TAKE THYROID MEDICATIONS) Hypothyroidsim HEENT: No Cancer: No Psychosocial: Yes (CONVERSION DISORDER) Anxiety, Suicide Attempts, Bipolar, Personality Disorder, Schizophrenia, Depression Integumentary: No Blood Disorders: No Family Medical History Asthma 19 MOTHER No Pertinent Family Hx SOCIAL HISTORY: -ETOH-RARE USE -DRUGS-MARIJUANA -SMOKES 1-2 PPD PSYCH HISTORY--EXTENSIVE PSYCH ISSUES, SUICIDAL "THOUGHTS" BUT ONLY 1 ACTUAL ATTEMPT IN 2017. VERY MANIPULATIVE BEHAVIOR. EXTREME NON-COMPLIANCE IN ALL ASPECTS OF CARE Physical Exam Vital Signs Vital Signs - First Documented 11/27/20 01:08 Pulse 79 Resp 18 B/P (MAP) 135/76 (95) Pulse Ox 98 O2 Delivery Room Air Capillary Refill : Height/Weight/BMI Height: 5'3.00" Weight: 275lbs. 5.0oz. 124.293355qq; 41.00 BMI Method:Stated General Appearance: WD/WN, no apparent distress, obese HEENT: PERRL/EOMI, pharynx normal Neck: full range of motion, supple, normal inspection Respiratory: lungs clear, normal breath sounds, no respiratory distress, no accessory muscle use Cardiovascular: normal peripheral pulses, regular rate, rhythm Peripheral Pulses: 2+ Dorsalis Pedis (R), 2+ Left Dors-Pedis (L) Gastrointestinal: normal bowel sounds, non tender, soft, no organomegaly Extremities: normal range of motion, non-tender, normal inspection, no pedal edema, normal capillary refill Neurologic/Psychiatric: alert, normal mood/affect, oriented x 3 Progress/Results/Core Measures Results/Orders Lab Results Laboratory Tests Test 11/27/20 00:59 11/27/20 01:22 Range/Units White Blood Count 13.1 H 4.3-11.0 10^3/uL Red Blood Count 5.35 H 3.80-5.11 10^6/uL Hemoglobin 13.9 11.5-16.0 g/dL Hematocrit 43 35-52 % Mean Corpuscular Volume 81 80-99 fL Mean Corpuscular Hemoglobin 26 25-34 pg Mean Corpuscular Hemoglobin Concent 32 32-36 g/dL Red Cell Distribution Width 14.6 H 10.0-14.5 % Platelet Count 230 130-400 10^3/uL Mean Platelet Volume 11.0 9.0-12.2 fL Immature Granulocyte % (Auto) 0 % Neutrophils (%) (Auto) 76 H 42-75 % Lymphocytes (%) (Auto) 18 12-44 % Monocytes (%) (Auto) 5 0-12 % Eosinophils (%) (Auto) 1 0-10 % Basophils (%) (Auto) 0 0-10 % Neutrophils # (Auto) 9.9 H 1.8-7.8 10^3/uL Lymphocytes # (Auto) 2.3 1.0-4.0 10^3/uL Monocytes # (Auto) 0.6 0.0-1.0 10^3/uL Eosinophils # (Auto) 0.1 0.0-0.3 10^3/uL Basophils # (Auto) 0.0 0.0-0.1 10^3/uL Immature Granulocyte # (Auto) 0.0 0.0-0.1 10^3/uL Percent Immature Platelet Fraction 7.5 0.0-7.6 % Sodium Level 136 135-145 MMOL/L Potassium Level 3.6 3.6-5.0 MMOL/L Chloride Level 103 98-107 MMOL/L Carbon Dioxide Level 20 L 21-32 MMOL/L Anion Gap 13 5-14 MMOL/L Blood Urea Nitrogen 5 L 7-18 MG/DL Creatinine 0.66 0.60-1.30 MG/DL Estimat Glomerular Filtration Rate 109 BUN/Creatinine Ratio 8 Glucose Level 93 70-105 MG/DL Calcium Level 9.8 8.5-10.1 MG/DL Corrected Calcium 9.4 8.5-10.1 MG/DL Total Bilirubin 0.3 0.1-1.0 MG/DL Aspartate Amino Transf (AST/SGOT) 17 5-34 U/L Alkaline Phosphatase 84 40-136 U/L C-Reactive Protein High Sensitivity 0.69 H 0.00-0.50 MG/DL Total Protein 7.8 6.4-8.2 GM/DL Albumin 4.5 3.2-4.5 GM/DL Smear Scan YES Urine Color YELLOW Urine Clarity SL CLOUDY Urine pH 6.0 5-9 Urine Specific [place] 1.020 1.016-1.022 Urine Protein NEGATIVE NEGATIVE Urine Glucose (UA) NEGATIVE NEGATIVE Urine Ketones NEGATIVE NEGATIVE Urine Nitrite NEGATIVE NEGATIVE Urine Bilirubin NEGATIVE NEGATIVE Urine Urobilinogen 0.2 < = 1.0 MG/DL Urine Leukocyte Esterase TRACE H NEGATIVE Urine RBC (Auto) NEGATIVE NEGATIVE Urine RBC NONE /HPF Urine WBC RARE /HPF Urine Squamous Epithelial Cells 25-50 H /HPF Urine Crystals NONE /LPF Urine Bacteria TRACE /HPF Urine Casts NONE /LPF Urine Mucus SMALL H /LPF Urine Culture Indicated NO My Orders Orders - SANDRANANCY Ua Culture If Indicated (11/27/20 01:06) Urine Bedside (11/27/20 01:06) Cbc With Automated Diff (11/27/20 01:06) Comprehensive Metabolic Panel (11/27/20 01:06) Hs C Reactive Protein (11/27/20 01:06) Pyridoxine Tablet (Vitamin B-6 Tablet) (11/27/20 01:30) Medications Given in ED Current Medications Medications Dose Ordered Sig/Tierney Route Start Time Stop Time Status Last Admin Dose Admin Pyridoxine HCl 50 mg ONCE ONCE PO 11/27/20 01:30 11/27/20 01:31 DC 11/27/20 01:33 50 MG Vital Signs/I&O 11/27/20 01:08 Pulse 79 Resp 18 B/P (MAP) 135/76 (95) Pulse Ox 98 O2 Delivery Room Air Progress Progress Note #1: Time: 01:12 Progress Note The patient is not having an abdominal pain at this time. She has a nontender, soft, nonsurgical abdomen and normal vital signs. We will check some basic labs. Did some teaching on how to deal with first trimester nausea we will give her a prescription for doxylamine and pyridoxine. Also gave some counseling on what to return to the ER for. Instructions to follow-up with her primary care team. Progress Note #2: Time: 01:40 Progress Note Lab looks okay. Her nausea has improved after the pill. We will ask her to keep her scheduled appointment. We did discuss return precautions and she is okay with this plan. Departure Impression Primary Impression: Abdominal pain during in first trimester Disposition: 01 HOME, SELF-CARE Condition: Stable Departure-Patient Inst. Decision time for Depature: 01:45 Referrals: [facility]/[place] (PCP) Primary Care Physician ES MACE (Family) Primary Care Physician Patient Instructions: Stomach Pain in Early Add. Discharge Instructions: Avoid high acid foods such as orange juice as this may increase your reflux. Try cleaning out with some MiraLAX for a couple days and see if this helps with your loose stools. I suspect perhaps the loose stools are the only thing that she can pass if you are having obstipation. You can use Tums, Rolaids, Maalox etc. as necessary if you are having acid reflux. If you have nausea then use the pyridoxine and doxylamine each every 6 hours for nausea related to your first trimester. Follow-up with your primary electrical test engineer at your neck scheduled appointment. Return to the ER promptly if you are having severe abdominal pain that is doubling you over, intractable vomiting, vaginal bleeding with clots larger than a chickens egg or other severe worrisome symptoms such as a fever above 102.5. Scripts Doxylamine/Pyridoxine HCl (Carmela Villanueva 10-10 mg Tablet) 1 Each Tablet.dr 1 EACH PO Q6H PRN for NAUSEA-1ST LINE, #20 TAB 0 Refills Prov: NANCY FLORES 11/27/20 Copy Copies To 1: ASHLI RYAN MD, TITUS J Nov 27, 2020 01:13
[2020-11-27] MEDS ORDERED: DOXY1TAB3 PO (01:19)
[2020-11-27 01:23] LABS: BASOPHILS % (AUTO) 0 % (0-10); EOSINOPHILS # (AUTO) 0.1 10^3/uL (0.0-0.3); EOSINOPHILS % (AUTO) 1 % (0-10); HEMATOCRIT 43 % (35-52); HEMOGLOBIN 13.9 g/dL (11.5-16.0); LYMPHOCYTES # (AUTO) 2.3 10^3/uL (1.0-4.0); LYMPHOCYTES % (AUTO) 18 % (12-44); MEAN CORPUSCULAR HEMOGLOBIN 26 pg (25-34); MEAN CORPUSCULAR HGB CONC 32 g/dL (32-36); MEAN CORPUSCULAR VOLUME 81 fL (80-99); MONOCYTES # (AUTO) 0.6 10^3/uL (0.0-1.0); MONOCYTES % (AUTO) 5 % (0-12); NEUTROPHILS # (AUTO) 9.9 10^3/uL (1.8-7.8); NEUTROPHILS % (AUTO) 76 % (42-75); PLATELET COUNT 230 10^3/uL (130-400); WHITE BLOOD COUNT 13.1 10^3/uL (4.3-11.0)
[2020-11-27 01:24] LABS: SMEAR SCAN COMMENT YES
[2020-11-27 01:29] LABS: BILIRUBIN,URINE NEGATIVE (NEGATIVE); CLARITY,URINE SL CLOUDY; COLOR,URINE YELLOW; GLUCOSE, URINE (UA) NEGATIVE (NEGATIVE); KETONES,URINE NEGATIVE (NEGATIVE); LEUKOCYTE ESTERASE ,URINE TRACE (NEGATIVE); NITRITE,URINE NEGATIVE (NEGATIVE); PROTEIN,URINE NEGATIVE (NEGATIVE)
[2020-11-27] MEDS ORDERED: PYRIDOXINE (VITAMIN B-6) 50 MG TABLET PO ONE (01:30)
[2020-11-27 01:31] LABS: ALBUMIN 4.5 GM/DL (3.2-4.5); POTASSIUM 3.6 MMOL/L (3.6-5.0)
[2020-11-27 01:32] LABS: CALCIUM 9.8 MG/DL (8.5-10.1)
[2020-11-27 01:34] LABS: TOTAL PROTEIN 7.8 GM/DL (6.4-8.2)
[2020-11-27 01:35] LABS: BILIRUBIN,TOTAL 0.3 MG/DL (0.1-1.0)
[2020-11-27 01:36] LABS: BACTERIA,URINE TRACE /HPF; SQUAMOUS EPITHELIAL CELL,UR 25-50 /HPF; WBC,URINE RARE /HPF
[2020-11-27 01:37] LABS: CREATININE SERUM 0.66 MG/DL (0.60-1.30)
[2020-11-27 01:50] VITALS: BP 115/67
== END 2020-11-27 01:51 | disposition home or self-care (01) ==
LOC: EDUNIT# 00:56 → ER 00:57
DX: O26.891 Other specified pregnancy related conditions, first trimester (principal); R10.9 Unspecified abdominal pain; O99.281 Endocrine, nutritional and metabolic diseases complicating pregnancy, first trimester; E03.9 Hypothyroidism, unspecified; O99.341 Other mental disorders complicating pregnancy, first trimester; F41.9 Anxiety disorder, unspecified; F60.9 Personality disorder, unspecified; F31.9 Bipolar disorder, unspecified; F20.9 Schizophrenia, unspecified; O99.351 Diseases of the nervous system complicating pregnancy, first trimester; G43.909 Migraine, unspecified, not intractable, without status migrainosus; O99.331 Smoking (tobacco) complicating pregnancy, first trimester; F17.210 Nicotine dependence, cigarettes, uncomplicated; O99.211 Obesity complicating pregnancy, first trimester; Z79.890 Hormone replacement therapy; Z79.899 Other long term (current) drug therapy; Z3A.01 Less than 8 weeks gestation of pregnancy
CPT/HCPCS: 36415; 80053; 81000; 84703; 85025; 86141; 99283

== ENCOUNTER 2020-12-16 23:55 | Emergency (ER) | payer MEDICARE, MEDICAID ==
[~2020-12-16] VITALS: Ht 160 cm; Wt 103.0 kg
[~2020-12-16 23:55] MED LIST changes: +DOXY1TAB3 PO
[2020-12-17 00:18] VITALS: BP 120/61
--- NOTE | 2020-12-17 00:47 | ED General ---
General Chief Complaint: Abdominal/GI Problems Stated Complaint: VOMITING Nursing Triage Note: Pt arrival to ER via [facility] with complaint of vomiting since 2pm after lunch. Pt states that she has vomited a total of 9 times and is worried about being dehydrated. Pt is 10 weeks . Pt had no vomiting with EMS. Pt denies other symptoms (CHARLES HOLDER) History of Present Illness Date Seen by Provider: Dec 17, 2020 Time Seen by Provider: 00:38 Initial Comments Patient is a 25 year old female who presents to the ER with a chief complaint of vomiting that began at 2 pm today. Patient had concerns of dehydration because she is 10 weeks according to LMP and a positive at home test. Patient states that she had a migraine with aura that started around 1400 that was the onset of the N/V. She also had bilateral numbness in both hands at onset of migraine. She has vomited 7 times since. Patient states that moving, eating, and drinking make the N/V worse and nothing made it better. Patient states that her discomfort was at a 7/10 and she is now at a 4/10. Patient has not had care yet, but is supposed to establish care with Dr. Ryan next week. She did have some light vaginal spotting last week that she spoke to a nurse at [facility] about, but that has since resolved. Patient denies any vaginal spotting today. Patient reports that the N/V has gotten better since she arrived at the ER and is requesting water to attempt to keep down. Patient denies fever, ch ills, SOB, cough and GI pain. Timing/Duration: 12 Hours Severity: Mild Associated Systoms: Headaches (migraine w/ aura), Nausea/Vomiting (CHARLES HOLDER) Allergies and Home Medications Allergies Coded Allergies: haloperidol (Verified Allergy, Mild, 01/16/20) Patient Home Medication List Home Medication List Reviewed: Yes (CHARLES HOLDER) Benztropine Mesylate (Benztropine Mesylate) 1 Mg Tablet, 1 MG PO Q6H PRN for dystonia Prescribed by: NANCY FLORES on 05/11/20 0757 Divalproex Sodium (Depakote ER) 500 Mg Tab.er.24h, 1,000 MG PO HS, (Reported) Entered as Reported by: RONEN ZAMORA on 01/29/17 1033 Doxylamine/Pyridoxine HCl (Carmela Villanueva 10-10 mg Tablet) 1 Each Tablet.dr, 1 EACH PO Q6H PRN for NAUSEA-1ST LINE Prescribed by: NANCY FLORES on 11/27/20 0119 Fluoxetine HCl (Prozac) 20 Mg Capsule, 20 MG PO HS, (Reported) Entered as Reported by: ROBBIE SAVAGE on 01/29/17 0527 Hyoscyamine Sulfate (Levsin-Sl) 0.125 Mg Tab.subl, 1-2 TAB SL Q4H Prescribed by: DAVID DUNBAR on 11/20/18 0722 Levothyroxine Sodium (Synthroid) 25 Mcg Tablet, 25 MCG PO DAILY, (Reported) Entered as Reported by: RICHARD LYNCH on 12/22/16 214 Nitrofurantoin Monohyd/M-Cryst (Macrobid 100 mg Capsule) 100 Mg Capsule, 1 TAB PO BID Prescribed by: DAVID DUNBAR on 01/15/20 0538 Ondansetron (Ondansetron Odt) 4 Mg Tab.rapdis, 4 MG PO Q4H Prescribed by: DAVID DUNBAR on 11/20/18 0722 Paliperidone (Invega) 1.5 Mg Tab.er.24, Unknown Dose PO, (Reported) Entered as Reported by: RICHARD LYNCH on 07/14/17 230 Pantoprazole Sodium (Protonix) 40 Mg Tablet.dr, 40 MG PO DAILY Prescribed by: DAVID DUNBAR on 11/20/18 07 Review of Systems Review of Systems Constitutional: No chills, No dizziness, No fever EENTM: other (aura with migraine) Respiratory: No cough, No short of breath Gastrointestinal: No abdominal pain, No diarrhea Genitourinary: No dysuria, No pain (CHARLES HOLDER) Past Vutonqr-Vxclhc-Vmsccn Hx Patient Social History Tobacco Use?: Yes Smoking Status: Former Smoker Use of E-Cig and/or Vaping dev: No Substance use?: Yes Substance type: Marijuana Substance frequency: Couple times a week Alcohol Use?: No Pt feels they are or have been: No (CHARLES HOLDER) Immunizations Up To Date Tetanus Booster (TDap): Unknown Influenza Vaccine Up-to-Date: No; Not Current (CHARLES HOLDER) Seasonal Allergies Seasonal Allergies: No (CHARLES HOLDER) Past Medical History Surgery/Hospitalization HX: thyroid Surgeries: No Respiratory: No Cardiac: No Neurological: Yes Headaches /Migraines : Yes Hx : 1 Hx Para: 0 Reproductive Disorders: Yes Female Reproductive Disorders: Menstrual Problems Genitourinary: Yes UTI-Chronic Gastrointestinal: No Musculoskeletal: No Endocrine: Yes (OBESITY; REFUSES TO TAKE THYROID MEDICATIONS) Hypothyroidsim HEENT: No Cancer: No Psychosocial: Yes (CONVERSION DISORDER) Anxiety, Suicide Attempts, Bipolar, Personality Disorder, Schizophrenia, Depression Integumentary: No Blood Disorders: No (CHARLES HOLDER) Family Medical History Asthma 19 MOTHER No Pertinent Family Hx SOCIAL HISTORY: -ETOH-RARE USE -DRUGS-MARIJUANA -SMOKES 1-2 PPD PSYCH HISTORY--EXTENSIVE PSYCH ISSUES, SUICIDAL "THOUGHTS" BUT ONLY 1 ACTUAL ATTEMPT IN 2017. VERY MANIPULATIVE BEHAVIOR. EXTREME NON-COMPLIANCE IN ALL ASPECTS OF CARE (CHARLES HOLDER) Physical Exam Vital Signs Vital Signs - First Documented 12/17/20 00:18 Temp 35.9 Pulse 82 Resp 22 B/P (MAP) 120/61 (80) Pulse Ox 98 O2 Delivery Room Air (YORDAN COUCH MD) Vital Signs Capillary Refill : Less Than 3 Seconds (CHARLES HOLDER) Height, Weight, BMI Height: 5'3.00" Weight: 275lbs. 5.0oz. 124.120403dq; 40.00 BMI Method:Stated General Appearance: No Apparent Distress, WD/WN HEENT: PERRL/EOMI Respiratory: Chest Non Tender, Lungs Clear, Normal Breath Sounds, No Accessory Muscle Use, No Respiratory Distress Cardiovascular: Regular Rate, Rhythm, No Edema, Normal Peripheral Pulses Gastrointestinal: Non Tender, Soft Extremity: Normal Capillary Refill, Normal Inspection Neurologic/Psychiatric: Alert, Oriented x3, Normal Mood/Affect Skin: Normal Color, Warm/Dry (CHARLES HOLDER) Progress/Results/Core Measures Suspected Sepsis SIRS Temperature: Pulse: 82 Respiratory Rate: 22 Blood Pressure 120 /61 Mean: 80 (CHARLES HOLDER) Results/Orders Lab Results Laboratory Tests Test 12/17/20 00:40 12/17/20 01:15 Range/Units Urine Color YELLOW Urine Clarity CLOUDY Urine pH 7.5 5-9 Urine Specific [place] 1.020 1.016-1.022 Urine Protein TRACE H NEGATIVE Urine Glucose (UA) NEGATIVE NEGATIVE Urine Ketones 1+ H NEGATIVE Urine Nitrite NEGATIVE NEGATIVE Urine Bilirubin NEGATIVE NEGATIVE Urine Urobilinogen 0.2 < = 1.0 MG/DL Urine Leukocyte Esterase TRACE H NEGATIVE Urine RBC (Auto) NEGATIVE NEGATIVE Urine RBC NONE /HPF Urine WBC NONE /HPF Urine Squamous Epithelial Cells 10-25 H /HPF Urine Crystals PRESENT H /LPF Urine Amorphous Sediment LARGE PRICILA PHOSPHATE H /LPF Urine Bacteria NEGATIVE /HPF Urine Casts NONE /LPF Urine Mucus SMALL H /LPF Urine Culture Indicated NO Sodium Level 136 135-145 MMOL/L Potassium Level 3.8 3.6-5.0 MMOL/L Chloride Level 105 98-107 MMOL/L Carbon Dioxide Level 18 L 21-32 MMOL/L Anion Gap 13 5-14 MMOL/L Blood Urea Nitrogen 5 L 7-18 MG/DL Creatinine 0.59 L 0.60-1.30 MG/DL Estimat Glomerular Filtration Rate 124 BUN/Creatinine Ratio 8 Glucose Level 96 70-105 MG/DL Calcium Level 9.7 8.5-10.1 MG/DL (YORDAN COUCH MD) My Orders Orders - YORDAN COUCH MD Urine Bedside (12/17/20 00:56) Ua Culture If Indicated (12/17/20 00:56) Basic Metabolic Panel (12/17/20 01:01) Ed Iv/Invasive Line Start (12/17/20 01:01) Ns Iv 1000 Ml (Sodium Chloride 0.9%) (12/17/20 01:15) Metoclopramide Injection (Reglan Injecti (12/17/20 01:15) Diphenhydramine Injection (Benadryl Inje (12/17/20 01:15) (YORDAN COUCH MD) Medications Given in ED Current Medications Medications Dose Ordered Sig/Tierney Route Start Time Stop Time Status Last Admin Dose Admin Diphenhydramine HCl 25 mg ONCE ONCE IV 12/17/20 01:15 12/17/20 01:16 DC 12/17/20 01:22 25 MG Metoclopramide HCl 5 mg ONCE ONCE IVP 12/17/20 01:15 12/17/20 01:16 DC 12/17/20 01:22 5 MG (YORDAN COUCH MD) Vital Signs/I&O 12/17/20 00:18 Temp 35.9 Pulse 82 Resp 22 B/P (MAP) 120/61 (80) Pulse Ox 98 O2 Delivery Room Air (YORDAN COUCH MD) Vital Signs/I&O Capillary Refill : Less Than 3 Seconds (CHARLES HOLDER) Blood Pressure Mean: 80 Progress Note : Time: 01:50 Progress Note Patient treated in the emergency department with 1 L of normal saline, 5 mg of Reglan and 25 mg of IV Benadryl. Labs reviewed, no evidence for bacterial urinary tract infection. Chemistry is reassuring, CO2 18. BUN and creatinine within normal range. Patient has scheduled follow-up with her OB provider on December 25. She is given good return precautions. All questions are sought and answered. Patient is stable for discharge. We will send her home with a pres cription for Zofran for nausea. (YORDAN COUCH MD) Departure Impression Primary Impression: First trimester Additional Impressions: Headache Qualified Codes: G44.209 - Tension-type headache, unspecified, not intractable Vomiting Qualified Codes: R11.2 - Nausea with vomiting, unspecified Disposition: HOME, SELF-CARE Condition: Stable Departure-Patient Inst. Decision time for Depature: 01:51 (YORDAN COUCH MD) Referrals: [facility] [place] Primary Care Physician ES MACE (Family) Primary Care Physician ASHLI RYAN MD Patient Instructions: Nausea and Vomiting of Add. Discharge Instructions: I have sent a prescription for nausea medications to your pharmacy. You can take 1 tablet every 8 hours as needed for nausea and vomiting. Please try and drink plenty of water while taking this medication as it can cause constipation symptoms. Keep your follow-up appointment with your OB/family practice provider. Return to the emergency department if you have any worsening symptoms especially with abdominal cramping, return of vaginal bleeding, any other emergent concerning symptoms. Scripts Ondansetron (Ondansetron Odt) 4 Mg Tab.rapdis 4 MG PO Q8H PRN for nausea, #20 TAB Prov: YORDAN COUCH MD 12/17/20 Patient seen in conjunction with the medical student, I have independently performed a history and physical examination on this patient patient. I agree with the medical student's documentation regarding HPI, review of systems, past medical family and social history. Plan of care discussed with the patient, recommend Zofran, fluids. Return precautions. Patient did mention a brief episode of about a 4-hour window of time early last week in which she had some vaginal spotting. She did discuss this with a nurse provider through [facility]. She has had no ongoing bleeding, I am not concerned for threatened miscarriage at this time. All questions are sought and answered from the patient. Patient is stable for discharge. (YORDAN COUCH MD) CHARLES HOLDER Dec 17, 2020 00:47 YORDAN COUCH MD Dec 17, 2020 01:55
[2020-12-17 01:01] LABS: BILIRUBIN,URINE NEGATIVE (NEGATIVE); CLARITY,URINE CLOUDY; COLOR,URINE YELLOW; GLUCOSE, URINE (UA) NEGATIVE (NEGATIVE); KETONES,URINE 1+ (NEGATIVE); LEUKOCYTE ESTERASE ,URINE TRACE (NEGATIVE); NITRITE,URINE NEGATIVE (NEGATIVE); PH,URINE 7.5 (5-9); PROTEIN,URINE TRACE (NEGATIVE)
[2020-12-17] MEDS ORDERED: METOCLOPRAMIDE INJ 10 MG/2 ML (REGLAN) IVP ONE (01:15)
[2020-12-17] MEDS ORDERED: NS IV 1000 ML 1,000 ML IV SCH (01:15)
[2020-12-17] MEDS ORDERED: diphenhydrAMINE 50 MG/ML INJ (BENADRYL) IV ONE (01:15)
[2020-12-17 01:18] LABS: AMORPHOUS SEDIMENT,UR LARGE AMOR PHOSPHATE /LPF; BACTERIA,URINE NEGATIVE /HPF
[2020-12-17 01:34] LABS: POTASSIUM 3.8 MMOL/L (3.6-5.0)
[2020-12-17 01:35] LABS: CALCIUM 9.7 MG/DL (8.5-10.1)
[2020-12-17 01:40] LABS: CREATININE SERUM 0.59 MG/DL (0.60-1.30)
[2020-12-17] MEDS ORDERED: ONDA4TAB11 PO (01:53)
== END 2020-12-17 02:10 | disposition home or self-care (01) ==
LOC: EDUNIT# 23:55 → ER 23:56
DX: O21.0 Mild hyperemesis gravidarum (principal); R51.9 Headache, unspecified; E03.9 Hypothyroidism, unspecified; F20.9 Schizophrenia, unspecified; F31.9 Bipolar disorder, unspecified; F41.9 Anxiety disorder, unspecified; E66.9 Obesity, unspecified; Z3A.10 10 weeks gestation of pregnancy; Z87.891 Personal history of nicotine dependence; Z79.890 Hormone replacement therapy; Z79.899 Other long term (current) drug therapy
CPT/HCPCS: 36415; 80048; 81000; 84703

== ENCOUNTER 2021-01-06 08:41 | Emergency (ER) | payer MEDICARE, MEDICAID ==
[~2021-01-06] VITALS: Ht 160 cm; Wt 107.9 kg
[2021-01-06 09:49] LABS: CLARITY,URINE CLOUDY; COLOR,URINE YELLOW; GLUCOSE, URINE (UA) NEGATIVE (NEGATIVE); KETONES,URINE TRACE (NEGATIVE); LEUKOCYTE ESTERASE ,URINE NEGATIVE (NEGATIVE); NITRITE,URINE NEGATIVE (NEGATIVE); PH,URINE 6.5 (5-9); PROTEIN,URINE 2+ (NEGATIVE)
[2021-01-06 10:02] LABS: BILIRUBIN,URINE 1+ (NEGATIVE)
[2021-01-06 10:06] LABS: BACTERIA,URINE TRACE /HPF; RBC,URINE 50-100 /HPF; SQUAMOUS EPITHELIAL CELL,UR 0-2 /HPF
--- NOTE | 2021-01-06 10:12 | ED GU-Female ---
General Chief Complaint: - Reproductive Stated Complaint: VAGINAL BLEEDING, 13 WKS PREG Nursing Triage Note: pt presents to ed via pov from home with complaints of vaginal spotting/bleeding starting at 0200 this am and getting progressively worse. pt states she had an us yesterday and told everything looked ok. pt reports she is aprox 11 weeks preg and has a due date of july 14. Source: patient, old records Exam Limitations: no limitations History of Present Illness Date Seen by Provider: Jan 06, 2021 Time Seen by Provider: 09:04 Initial Comments This 25-year-old young lady at approximately 13 weeks gestational age with an LMP of approximately October 07 presents to the ER with vaginal bleeding. She reports a normal ultrasound yesterday with intrauterine gestation. She has some cramping pain but no tenderness to palpation. Her bleeding had previously been more like spotting. She now has had bleeding more consistent with a. Without clotting. She denies fever. Her blood type is reportedly a positive and this was confirmed with the [facility] clinic. heart tones by Doppler during assessment were 150. She has some nausea but denies any other significant symptoms including dysuria. Dr. Ryan is her obstetrical provider. Allergies and Home Medications Allergies Coded Allergies: haloperidol (Verified Allergy, Mild, 01/16/20) Patient Home Medication List Home Medication List Reviewed: Yes Benztropine Mesylate (Benztropine Mesylate) 1 Mg Tablet, 1 MG PO Q6H PRN for d ystonia Prescribed by: NANCY FLORES on 05/11/20 0757 Divalproex Sodium (Depakote ER) 500 Mg Tab.er.24h, 1,000 MG PO HS, (Reported) Entered as Reported by: RONEN ZAMORA on 01/29/17 1033 Doxylamine/Pyridoxine HCl (Carmela Villanueva 10-10 mg Tablet) 1 Each Tablet.dr, 1 EACH PO Q6H PRN for NAUSEA-1ST LINE Prescribed by: NANCY FLORES on 11/27/20 0119 Fluoxetine HCl (Prozac) 20 Mg Capsule, 20 MG PO HS, (Reported) Entered as Reported by: ROBBIE SAVAGE on 01/29/17 0527 Hyoscyamine Sulfate (Levsin-Sl) 0.125 Mg Tab.subl, 1-2 TAB SL Q4H Prescribed by: DAVID DUNBAR on 11/20/18 0722 Levothyroxine Sodium (Synthroid) 25 Mcg Tablet, 25 MCG PO DAILY, (Reported) Entered as Reported by: RICHARD LYNCH on 12/22/162143 Nitrofurantoin Monohyd/M-Cryst (Macrobid 100 mg Capsule) 100 Mg Capsule, 1 TAB PO BID Prescribed by: DAVID DUNBAR on 01/15/20 0538 Ondansetron (Ondansetron Odt) 4 Mg Tab.rapdis, 4 MG PO Q4H Prescribed by: DAVID DUNBAR on 11/20/18 0722 Ondansetron (Ondansetron Odt) 4 Mg Tab.rapdis, 4 MG PO Q8H PRN for nausea Prescribed by: YORDAN COUCH on 12/17/20 0153 Paliperidone (Invega) 1.5 Mg Tab.er.24, Unknown Dose PO, (Reported) Entered as Reported by: RICHARD LYNCH on 07/14/17 230 Pantoprazole Sodium (Protonix) 40 Mg Tablet.dr, 40 MG PO DAILY Prescribed by: DAVID DUNBAR on 11/20/18721 Review of Systems Review of Systems Constitutional: no symptoms reported EENTM: no symptoms reported Respiratory: no symptoms reported Cardiovascular: no symptoms reported Gastrointestinal: see HPI, nausea Genitourinary: see HPI : Yes Expected Date of Delivery: July 14, 2021 LMP: Oct 07, 2020 Musculoskeletal: no symptoms reported Skin: no symptoms reported Psychiatric/Neurological: No Symptoms Reported Endocrine: No Symptoms Reported Hematologic/Lymphatic: No Symptoms Reported Past Hipbelc-Cxcfvb-Dinojp Hx Patient Social History Tobacco Use?: No Smoking Status: Former Smoker Substance use?: No Alcohol Use?: No Pt feels they are or have been: No Immunizations Up To Date Tetanus Booster (TDap): Unknown Seasonal Allergies Seasonal Allergies: No Past Medical History Surgery/Hospitalization HX: thyroid issues but does not take medication. Surgeries: No Respiratory: No Cardiac: No Neurological: Yes Headaches /Migraines Expected Date of Delivery: July 14, 2021 Reproductive Disorders: Yes Female Reproductive Disorders: Menstrual Problems Genitourinary: Yes UTI-Chronic Gastrointestinal: No Musculoskeletal: No Endocrine: Yes (OBESITY; REFUSES TO TAKE THYROID MEDICATIONS) Hypothyroidsim HEENT: No Cancer: No Psychosocial: Yes (CONVERSION DISORDER) Anxiety, Suicide Attempts, Bipolar, Personality Disorder, Schizophrenia, Depression Integumentary: No Blood Disorders: No Family Medical History Asthma 19 MOTHER No Pertinent Family Hx SOCIAL HISTORY: -ETOH-RARE USE -DRUGS-MARIJUANA -SMOKES 1-2 PPD PSYCH HISTORY--EXTENSIVE PSYCH ISSUES, SUICIDAL "THOUGHTS" BUT ONLY 1 ACTUAL ATTEMPT IN 2017. VERY MANIPULATIVE BEHAVIOR. EXTREME NON-COMPLIANCE IN ALL ASPECTS OF CARE Physical Exam Vital Signs Vital Signs - First Documented 01/06/21 08:55 Temp 36.5 Pulse 96 Resp 18 B/P (MAP) 112/71 (85) Pulse Ox 97 Capillary Refill : Less Than 3 Seconds Height, Weight, BMI Height: 5'3.00" Weight: 275lbs. 5.0oz. 124.890655gt; 42.00 BMI Method:Stated General Appearance: WD/WN, no apparent distress, obese HEENT: PERRL/EOMI, normal ENT inspection Neck: normal inspection Cardiovascular: regular rate, rhythm, no edema, no murmur Respiratory: lungs clear, normal breath sounds, no respiratory distress Gastrointestinal: normal bowel sounds, non tender, soft, other ( heart tones 150 by Doppler) Extremities: normal inspection, no pedal edema Neurologic/Psychiatric: alert, normal mood/affect, oriented x 3 Skin: normal color, warm/dry Progress/Results/Core Measures Suspected Sepsis SIRS Temperature: Pulse: 96 Respiratory Rate: 18 Blood Pressure 112 /71 Mean: 85 Results/Orders Lab Results Laboratory Tests Test 01/06/21 09:36 Range/Units Urine Color YELLOW Urine Clarity CLOUDY Urine pH 6.5 5-9 Urine Specific [place] 1.025 H 1.016-1.022 Urine Protein 2+ H NEGATIVE Urine Glucose (UA) NEGATIVE NEGATIVE Urine Ketones TRACE H NEGATIVE Urine Nitrite NEGATIVE NEGATIVE Urine Bilirubin 1+ H NEGATIVE Urine Urobilinogen 1.0 < = 1.0 MG/DL Urine Leukocyte Esterase NEGATIVE NEGATIVE Urine RBC (Auto) 3+ H NEGATIVE Urine RBC 50-100 H /HPF Urine WBC 2-5 /HPF Urine Squamous Epithelial Cells 0-2 /HPF Urine Crystals NONE /LPF Urine Bacteria TRACE /HPF Urine Casts NONE /LPF Urine Mucus MODERATE H /LPF Urine Culture Indicated NO My Orders Orders - BRONWYN HERNANDEZ MD Ua Culture If Indicated (01/06/21 09:04) Vital Signs/I&O 01/06/21 01/06/21 08:55 10:26 Temp 36.5 36.5 Pulse 96 96 Resp 18 16 B/P (MAP) 112/71 (85) 110/68 Pulse Ox 97 97 Capillary Refill : Less Than 3 Seconds Blood Pressure Mean: 85 Progress Note : Time: 10:13 Progress Note A positive blood type confirmed at [facility]. We were unable to draw blood here in the ER after multiple attempts. wellbeing documented with Doppler heart tones of 150. Departure Impression Primary Impression: Vaginal bleeding during Disposition: HOME, SELF-CARE Condition: Stable Departure-Patient Inst. Decision time for Depature: 10:14 Referrals: ASHLI RYAN MD (PCP/Family) Primary Care Physician Patient Instructions: Bleeding In Early Add. Discharge Instructions: Observe vaginal rest which means nothing vaginally including intercourse until you are cleared by your doctor. Your blood type was confirmed A positive by the [facility] clinic which means you do not need a RhoGam shot. Avoid strenuous activity and heavy lifting. Call your doctor first thing on Friday to provide an update and arrange follow-up. Call with questions or concerns. Drink plenty of clear liquids to stay well-hydrated. You may take Tylenol (acetaminophen) up to 1000 mg every 6 hours as needed for cramping. You may also try Benadryl (diphenhydramine) 25 to 50 mg every 6 hours as needed. Benadryl may make you sleepy so use with caution. Return to the ER if you have worsening symptoms including escalating pain, escalating bleeding, lightheadedness, shortness of breath, fever, or any other significant symptoms. All discharge instructions reviewed with patient and/or family. Voiced understanding. Copy Copies To 1: ASHLI RYAN MD, JOSHUA T MD Jan 06, 2021 10:12
[2021-01-06 10:26] VITALS: BP 110/68
== END 2021-01-06 10:26 | disposition home or self-care (01) ==
LOC: EDUNIT# 08:41 → ER 08:43
DX: O46.91 Antepartum hemorrhage, unspecified, first trimester (principal); F41.9 Anxiety disorder, unspecified; F31.9 Bipolar disorder, unspecified; E03.9 Hypothyroidism, unspecified; E66.9 Obesity, unspecified; Z3A.13 13 weeks gestation of pregnancy; Z87.891 Personal history of nicotine dependence; Z79.899 Other long term (current) drug therapy; Z79.890 Hormone replacement therapy
CPT/HCPCS: 81000

== ENCOUNTER 2021-01-07 08:23 | Emergency (ER) | payer MEDICARE, MEDICAID ==
[~2021-01-07] VITALS: Ht 160 cm; Wt 107.9 kg
[2021-01-07 08:57] LABS: BASOPHILS % (AUTO) 0 % (0-10); EOSINOPHILS # (AUTO) 0.1 10^3/uL (0.0-0.3); EOSINOPHILS % (AUTO) 1 % (0-10); HEMATOCRIT 41 % (35-52); HEMOGLOBIN 13.5 g/dL (11.5-16.0); LYMPHOCYTES # (AUTO) 1.7 10^3/uL (1.0-4.0); LYMPHOCYTES % (AUTO) 24 % (12-44); MEAN CORPUSCULAR HEMOGLOBIN 27 pg (25-34); MEAN CORPUSCULAR HGB CONC 33 g/dL (32-36); MEAN CORPUSCULAR VOLUME 82 fL (80-99); MEAN PLATELET VOLUME 10.8 fL (9.0-12.2); MONOCYTES # (AUTO) 0.4 10^3/uL (0.0-1.0); MONOCYTES % (AUTO) 5 % (0-12); NEUTROPHILS # (AUTO) 4.7 10^3/uL (1.8-7.8); NEUTROPHILS % (AUTO) 68 % (42-75); PLATELET COUNT 221 10^3/uL (130-400); WHITE BLOOD COUNT 6.9 10^3/uL (4.3-11.0)
--- NOTE | 2021-01-07 09:41 | ED GU-Female ---
General Chief Complaint: - Reproductive Stated Complaint: VAGINAL BLEEDING 13 WEEKS PREG Nursing Triage Note: PT PRESENTS TO ED VIA POV FROM HOME WITH COMPLAINTS OF VAGINAL BLEEDING THAT HAS WORSENED, PT ALSO REPORTS CONSTANT DULL AND CRAMPING LOW ABDOMINAL PAIN. Source: patient, old records Exam Limitations: no limitations History of Present Illness Date Seen by Provider: Jan 07, 2021 Time Seen by Provider: 08:40 Initial Comments This 25-year-old young lady presents to the emergency room at about 13 weeks gestational age with complaints of pelvic cramping and vaginal bleeding. She was seen in the ER yesterday as well. We were not able to obtain blood specimens yesterday but a blood type was reported from the [facility] clinic as a positive. Patient presents again today because she had more persisted vaginal bleeding and used 3-4 pads since midnight. heart tones by Doppler are in the 140s. Dr. Villeda is her obstetrical provider. See yesterday's note for more details. Allergies and Home Medications Allergies Coded Allergies: haloperidol (Verified Allergy, Mild, 01/16/20) Patient Home Medication List Home Medication List Reviewed: Yes Benztropine Mesylate (Benztropine Mesylate) 1 Mg Tablet, 1 MG PO Q6H PRN for dystonia Prescribed by: NANCY FLORES on 05/11/20 0757 Divalproex Sodium (Depakote ER) 500 Mg Tab.er.24h, 1,000 MG PO HS, (Reported) Entered as Reported by: RONEN ZAMORA on 01/29/17 1033 Doxylamine/Pyridoxine HCl (Carmela Villanueva 10-10 mg Tablet) 1 Each Tablet.dr, 1 EACH PO Q6H PRN for NAUSEA-1ST LINE Prescribed by: NANCY FLORES on 11/27/20 0119 Fluoxetine HCl (Prozac) 20 Mg Capsule, 20 MG PO HS, (Reported) Entered as Reported by: ROBBIE SAVAGE on 01/29/17 0527 Hyoscyamine Sulfate (Levsin-Sl) 0.125 Mg Tab.subl, 1-2 TAB SL Q4H Prescribed by: DAVID DUNBAR on 11/20/18 0722 Levothyroxine Sodium (Synthroid) 25 Mcg Tablet, 25 MCG PO DAILY, (Reported) Entered as Reported by: RICHARD LYNCH on 12/22/16 2144 Nitrofurantoin Monohyd/M-Cryst (Macrobid 100 mg Capsule) 100 Mg Capsule, 1 TAB PO BID Prescribed by: DAVID DUNBAR on 01/15/20 0538 Ondansetron (Ondansetron Odt) 4 Mg Tab.rapdis, 4 MG PO Q4H Prescribed by: DAVID DUNBAR on 11/20/18 0722 Ondansetron (Ondansetron Odt) 4 Mg Tab.rapdis, 4 MG PO Q8H PRN for nausea Prescribed by: YORDAN COUCH on 12/17/20 0153 Paliperidone (Invega) 1.5 Mg Tab.er.24, Unknown Dose PO, (Reported) Entered as Reported by: RICHARD LYNCH on 07/14/17 2309 Pantoprazole Sodium (Protonix) 40 Mg Tablet.dr, 40 MG PO DAILY Prescribed by: DAVID DUNBAR on 11/20/18 0722 Review of Systems Review of Systems Constitutional: no symptoms reported EENTM: no symptoms reported Respiratory: no symptoms reported Cardiovascular: no symptoms reported Gastrointestinal: no symptoms reported Genitourinary: see HPI : Yes Musculoskeletal: no symptoms reported Skin: no symptoms reported Psychiatric/Neurological: No Symptoms Reported Endocrine: No Symptoms Reported Past Mfsevfl-Ofcnys-Aloarm Hx Patient Social History Tobacco Use?: No Smoking Status: Former Smoker Substance use?: No Alcohol Use?: No Pt feels they are or have been: No Immunizations Up To Date Tetanus Booster (TDap): Unknown Seasonal Allergies Seasonal Allergies: No Past Medical History Surgery/Hospitalization HX: thyroid issues but does not take medication. Surgeries: No Respiratory: No Cardiac: No Neurological: Yes Headaches /Migraines Reproductive Disorders: Yes Female Reproductive Disorders: Menstrual Problems Genitourinary: Yes UTI-Chronic Gastrointestinal: No Musculoskeletal: No Endocrine: Yes (OBESITY; REFUSES TO TAKE THYROID MEDICATIONS) Hypothyroidsim HEENT: No Cancer: No Psychosocial: Yes (CONVERSION DISORDER) Anxiety, Suicide Attempts, Bipolar, Personality Disorder, Schizophrenia, Depression Integumentary: No Blood Disorders: No Family Medical History Asthma 19 MOTHER No Pertinent Family Hx SOCIAL HISTORY: -ETOH-RARE USE -DRUGS-MARIJUANA -SMOKES 1-2 PPD PSYCH HISTORY--EXTENSIVE PSYCH ISSUES, SUICIDAL "THOUGHTS" BUT ONLY 1 ACTUAL ATTEMPT IN 2017. VERY MANIPULATIVE BEHAVIOR. EXTREME NON-COMPLIANCE IN ALL ASPECTS OF CARE Physical Exam Vital Signs Vital Signs - First Documented 01/07/21 08:48 Temp 36.3 Pulse 72 B/P (MAP) 125/64 (84) Pulse Ox 100 Capillary Refill : Height, Weight, BMI Height: 5'3.00" Weight: 275lbs. 5.0oz. 124.583690we; 42.00 BMI Method:Stated General Appearance: WD/WN, no apparent distress HEENT: normal ENT inspection Gastrointestinal: normal bowel sounds, non tender, soft, other ( heart tones in the 140s by Doppler) Extremities: normal inspection Neurologic/Psychiatric: alert, normal mood/affect, oriented x 3 Skin: normal color, warm/dry Progress/Results/Core Measures Suspected Sepsis SIRS Temperature: Pulse: 72 Respiratory Rate: Laboratory Tests 01/07/21 08:43: White Blood Count 6.9 Blood Pressure 125 /64 Mean: 84 Laboratory Tests 01/07/21 08:43: Platelet Count 221 Results/Orders Lab Results Laboratory Tests Test 01/07/21 08:43 Range/Units White Blood Count 6.9 4.3-11.0 10^3/uL Red Blood Count 4.97 3.80-5.11 10^6/uL Hemoglobin 13.5 11.5-16.0 g/dL Hematocrit 41 35-52 % Mean Corpuscular Volume 82 80-99 fL Mean Corpuscular Hemoglobin 27 25-34 pg Mean Corpuscular Hemoglobin Concent 33 32-36 g/dL Red Cell Distribution Width 14.6 H 10.0-14.5 % Platelet Count 221 130-400 10^3/uL Mean Platelet Volume 10.8 9.0-12.2 fL Immature Granulocyte % (Auto) 0 % Neutrophils (%) (Auto) 68 42-75 % Lymphocytes (%) (Auto) 24 12-44 % Monocytes (%) (Auto) 5 0-12 % Eosinophils (%) (Auto) 1 0-10 % Basophils (%) (Auto) 0 0-10 % Neutrophils # (Auto) 4.7 1.8-7.8 10^3/uL Lymphocytes # (Auto) 1.7 1.0-4.0 10^3/uL Monocytes # (Auto) 0.4 0.0-1.0 10^3/uL Eosinophils # (Auto) 0.1 0.0-0.3 10^3/uL Basophils # (Auto) 0.0 0.0-0.1 10^3/uL Immature Granulocyte # (Auto) 0.0 0.0-0.1 10^3/uL My Orders Orders - BRONWYN HERNANDEZ MD Ed Iv/Invasive Line Start (01/07/21 08:48) Cbc With Automated Diff (01/07/21 08:48) Abo Rh Type (01/07/21 08:56) Vital Signs/I&O 01/07/21 01/07/21 08:48 09:45 Temp 36.3 36.3 Pulse 72 72 B/P (MAP) 125/64 (84) 125/64 Pulse Ox 100 100 Capillary Refill : Blood Pressure Mean: 84 Progress Note : Progress Note heart tones and vital signs were unremarkable. CBC was normal. I discussed the situation with Dr. Villeda who will review her case and her recent ultrasound. The clinic will follow up with the patient. She is otherwise stable and able to go home. Blood draw in the ER confirmed A positive blood type. Departure Impression Primary Impression: Vaginal bleeding during Disposition: 01 HOME, SELF-CARE Condition: Stable Departure-Patient Inst. Decision time for Depature: 09:40 Referrals: ASHLI RYAN MD (PCP/Family) Primary Care Physician Patient Instructions: Bleeding in Early ED Add. Discharge Instructions: Continue with the same instructions from your discharge yesterday and return to the ER for worsening symptoms or new symptoms. You should receive a call from Jumana from [facility] sometime tomorrow. If you does not hear from them by the end of the day, please call the clinic. You may call the ER with questions or concerns. All discharge instructions reviewed with patient and/or family. Voiced understanding. Copy Copies To 1: CHU VILLEDA MD, JOSHUA T MD Jan 07, 2021 09:41
[2021-01-07 09:45] VITALS: BP 125/64
== END 2021-01-07 09:45 | disposition home or self-care (01) ==
LOC: EDUNIT# 08:23 → ER 08:24
DX: O20.9 Hemorrhage in early pregnancy, unspecified (principal); E03.9 Hypothyroidism, unspecified; F41.9 Anxiety disorder, unspecified; F31.9 Bipolar disorder, unspecified; F20.9 Schizophrenia, unspecified; Z3A.13 13 weeks gestation of pregnancy; Z87.891 Personal history of nicotine dependence; Z79.899 Other long term (current) drug therapy; Z79.890 Hormone replacement therapy
CPT/HCPCS: 36415; 85025; 86900; 86901

== ENCOUNTER 2021-02-07 09:18 | Emergency (ER) | payer MEDICARE, MEDICAID ==
[~2021-02-07] VITALS: Ht 160 cm; Wt 106.0 kg
[2021-02-07] MEDS ORDERED: LACTATED RINGERS 1,000 ML IV SCH (09:45)
--- NOTE | 2021-02-07 09:57 | ED Abdominal Pain ---
General Chief Complaint: Abdominal/GI Problems Stated Complaint: ABD PAIN,N/V-17 WEEKS Nursing Triage Note: AMB TO ED REPORTS IS 17 WEEKS PREG ONSET OF R SIDE PAIN THIS AND WITH VOMITING. Source of Information: Patient Exam Limitations: No Limitations History of Present Illness Date Seen by Provider: Feb 07, 2021 Time Seen by Provider: 09:23 Initial Comments 25yoF with no significant PMH that at 17wga coming in for RUQ abd pain and nausea with nb/nb vomiting worsening with eating. Started at 1am, never had this before. Pain is moderate, intermittent, sharp. Her OB is Dr. Ryan. Allergies and Home Medications Allergies Coded Allergies: haloperidol (Verified Allergy, Mild, 01/16/20) Patient Home Medication List Home Medication List Reviewed: Yes Benztropine Mesylate (Benztropine Mesylate) 1 Mg Tablet, 1 MG PO Q6H PRN for dystonia Prescribed by: NANCY FLORES on 05/11/20 0757 Divalproex Sodium (Depakote ER) 500 Mg Tab.er.24h, 1,000 MG PO HS, (Reported) Entered as Reported by: RONEN ZAMORA on 01/29/17 1033 Doxylamine/Pyridoxine HCl (Carmela Dr 10-10 mg Tablet) 1 Each Tablet.dr, 1 EACH PO Q6H PRN for NAUSEA-1ST LINE Prescribed by: NANCY FLORES on 11/27/20 0119 Fluoxetine HCl (Prozac) 20 Mg Capsule, 20 MG PO HS, (Reported) Entered as Reported by: ROBBIE SAVAGE on 01/29/17 0527 Hyoscyamine Sulfate (Levsin-Sl) 0.125 Mg Tab.subl, 1-2 TAB SL Q4H Prescribed by: DAVID DUNBAR on 11/20/18 0722 Levothyroxine Sodium (Synthroid) 25 Mcg Tablet, 25 MCG PO DAILY, (Reported) Entered as Reported by: RICHARD LYNCH on 12/22/16 2144 Nitrofurantoin Monohyd/M-Cryst (Macrobid 100 mg Capsule) 100 Mg Capsule, 1 TAB PO BID Prescribed by: DAVID DUNBAR on 01/15/20 0538 Ondansetron (Ondansetron Odt) 4 Mg Tab.rapdis, 4 MG PO Q4H Prescribed by: DAVID DUNBAR on 11/20/18 0722 Ondansetron (Ondansetron Odt) 4 Mg Tab.rapdis, 4 MG PO Q8H PRN for nausea Prescribed by: YORDAN COUCH on 12/17/20 0153 Paliperidone (Invega) 1.5 Mg Tab.er.24, Unknown Dose PO, (Reported) Entered as Reported by: RICHARD LYNCH on 07/14/17 2309 Pantoprazole Sodium (Protonix) 40 Mg Tablet.dr, 40 MG PO DAILY Prescribed by: DAVID DUNBAR on 11/20/18 0722 Review of Systems Review of Systems Constitutional: No chills EENTM: No Blurred Vision Respiratory: Denies Cough, Denies Shortness of Air Cardiovascular: Denies Chest Pain Gastrointestinal: Abdominal Pain, Nausea, Vomiting Genitourinary: No Symptoms Reported Musculoskeletal: no symptoms reported Skin: no symptoms reported Psychiatric/Neurological: No Symptoms Reported Endocrine: No Symptoms Reported Hematologic/Lymphatic: No Symptoms Reported All Other Systems Reviewed Negative Unless Noted: Yes Past Tkcardc-Behqcg-Khynwe Hx Patient Social History Tobacco Use?: No Substance use?: Yes Alcohol Use?: No Immunizations Up To Date Tetanus Booster (TDap): Unknown Seasonal Allergies Seasonal Allergies: No Past Medical History Surgery/Hospitalization HX: thyroid issues but does not take medication. Surgeries: No Respiratory: No Cardiac: No Neurological: Yes Headaches /Migraines Expected Date of Delivery: July 15, 2021 Last Menstrual Period: Oct 07, 2020 Reproductive Disorders: Yes Female Reproductive Disorders: Menstrual Problems Genitourinary: Yes UTI-Chronic Gastrointestinal: No Musculoskeletal: No Endocrine: Yes (OBESITY; REFUSES TO TAKE THYROID MEDICATIONS) Hypothyroidsim HEENT: No Cancer: No Psychosocial: Yes (CONVERSION DISORDER) Anxiety, Suicide Attempts, Bipolar, Personality Disorder, Schizophrenia, Depression Integumentary: No Blood Disorders: No Family Medical History Asthma 19 MOTHER No Pertinent Family Hx SOCIAL HISTORY: -ETOH-RARE USE -DRUGS-MARIJUANA -SMOKES 1-2 PPD PSYCH HISTORY--EXTENSIVE PSYCH ISSUES, SUICIDAL "THOUGHTS" BUT ONLY 1 ACTUAL ATTEMPT IN 2017. VERY MANIPULATIVE BEHAVIOR. EXTREME NON-COMPLIANCE IN ALL ASPECTS OF CARE Physical Exam Vital Signs Vital Signs - First Documented 02/07/21 09:27 Temp 36.8 Pulse 100 Resp 18 B/P (MAP) 129/82 (98) Pulse Ox 96 Capillary Refill : Less Than 3 Seconds Height/Weight/BMI Height: 5'3.00" Weight: 275lbs. 5.0oz. 124.606537kj; 41.00 BMI Method:Stated General Appearance: WD/WN, no apparent distress HEENT: PERRL/EOMI, normal ENT inspection, pharynx normal Neck: non-tender, full range of motion, supple, normal inspection Respiratory: chest non-tender, lungs clear, normal breath sounds, no respiratory distress, no accessory muscle use Cardiovascular: regular rate, rhythm, no edema, no murmur Gastrointestinal: normal bowel sounds, soft; No guarding, No rebound; tenderness Extremities: normal range of motion, non-tender, normal inspection, no pedal edema, no calf tenderness, normal capillary refill Back: normal inspection, no CVA tenderness Neurologic/Psychiatric: no motor/sensory deficits, alert, normal mood/affect Skin: normal color, warm/dry Lymphatic: no adenopathy Progress/Results/Core Measures Results/Orders Lab Results Laboratory Tests Test 02/07/21 10:00 02/07/21 10:03 Range/Units White Blood Count 9.9 4.3-11.0 10^3/uL Red Blood Count 4.72 3.80-5.11 10^6/uL Hemoglobin 12.7 11.5-16.0 g/dL Hematocrit 38 35-52 % Mean Corpuscular Volume 81 80-99 fL Mean Corpuscular Hemoglobin 27 25-34 pg Mean Corpuscular Hemoglobin Concent 33 32-36 g/dL Red Cell Distribution Width 14.6 H 10.0-14.5 % Platelet Count 238 130-400 10^3/uL Mean Platelet Volume 11.3 9.0-12.2 fL Immature Granulocyte % (Auto) 0 % Neutrophils (%) (Auto) 92 H 42-75 % Lymphocytes (%) (Auto) 4 L 12-44 % Monocytes (%) (Auto) 4 0-12 % Eosinophils (%) (Auto) 0 0-10 % Basophils (%) (Auto) 0 0-10 % Neutrophils # (Auto) 9.1 H 1.8-7.8 10^3/uL Lymphocytes # (Auto) 0.4 L 1.0-4.0 10^3/uL Monocytes # (Auto) 0.4 0.0-1.0 10^3/uL Eosinophils # (Auto) 0.0 0.0-0.3 10^3/uL Basophils # (Auto) 0.0 0.0-0.1 10^3/uL Immature Granulocyte # (Auto) 0.0 0.0-0.1 10^3/uL Neutrophils % (Manual) 88 % Lymphocytes % (Manual) 5 % Monocytes % (Manual) 3 % Eosinophils % (Manual) 0 % Basophils % (Manual) 0 % Band Neutrophils 4 % Blood Morphology Comment NORMAL Sodium Level 137 135-145 MMOL/L Potassium Level 3.8 3.6-5.0 MMOL/L Chloride Level 107 98-107 MMOL/L Carbon Dioxide Level 18 L 21-32 MMOL/L Anion Gap 12 5-14 MMOL/L Blood Urea Nitrogen 6 L 7-18 MG/DL Creatinine 0.53 L 0.60-1.30 MG/DL Estimat Glomerular Filtration Rate 141 BUN/Creatinine Ratio 11 Glucose Level 97 70-105 MG/DL Calcium Level 8.8 8.5-10.1 MG/DL Corrected Calcium 9.0 8.5-10.1 MG/DL Total Bilirubin 0.5 0.1-1.0 MG/DL Aspartate Amino Transf (AST/SGOT) 20 5-34 U/L Alanine Aminotransferase (ALT/SGPT) 28 0-55 U/L Alkaline Phosphatase 58 40-136 U/L Total Protein 6.7 6.4-8.2 GM/DL Albumin 3.7 3.2-4.5 GM/DL Lipase 17 8-78 U/L Urine Color ORANGE Urine Clarity SL CLOUDY Urine pH 7.5 5-9 Urine Specific [place] 1.020 1.016-1.022 Urine Protein TRACE H NEGATIVE Urine Glucose (UA) NEGATIVE NEGATIVE Urine Ketones 1+ H NEGATIVE Urine Nitrite NEGATIVE NEGATIVE Urine Bilirubin NEGATIVE NEGATIVE Urine Urobilinogen 1.0 < = 1.0 MG/DL Urine Leukocyte Esterase TRACE H NEGATIVE Urine RBC (Auto) NEGATIVE NEGATIVE Urine RBC NONE /HPF Urine WBC 5-10 H /HPF Urine Squamous Epithelial Cells 10-25 H /HPF Urine Crystals NONE /LPF Urine Bacteria MODERATE H /HPF Urine Casts NONE /LPF Urine Mucus MODERATE H /LPF Urine Culture Indicated YES My Orders Orders - ELTON CLEVELAND MD Lactated Ringers (Lr 1000 Ml Iv Solution (02/07/21 09:45) Cbc With Automated Diff (02/07/21 09:40) Comprehensive Metabolic Panel (02/07/21 09:40) Lipase (02/07/21 09:40) Ua Culture If Indicated (02/07/21 09:40) Urine Culture (02/07/21 10:03) Ceftriaxone 1 Gm Pre-Mix (Rocephin 1 Gm (02/07/21 10:30) Promethazine Injection (Phenergan Injec (02/07/21 10:30) D5 Ns 1000 Ml Iv Solution (Dextrose 5%/0 (02/07/21 10:24) Manual Differential (02/07/21 10:00) Us Abdomen Limited [id number] (02/07/21 10:03) Medications Given in ED Current Medications Medications Dose Ordered Sig/Tierney Route Start Time Stop Time Status Last Admin Dose Admin Ceftriaxone Sodium/Dextrose 50 ml @ 100 mls/hr ONCE ONCE IV 02/07/21 10:30 02/07/21 10:59 DC 02/07/21 10:49 100 MLS/HR Promethazine HCl 25 mg ONCE ONCE IVP 02/07/21 10:30 02/07/21 10:31 DC 02/07/21 10:28 25 MG Vital Signs/I&O 02/07/21 09:27 Temp 36.8 Pulse 100 Resp 18 B/P (MAP) 129/82 (98) Pulse Ox 96 Blood Pressure Mean: 98 Progress Progress Note : Progress Note 25-year-old female with above history coming in due to vomiting abdominal pain. ABCs were intact vitals are stable on presentation. Physical exam with right upper quadrant tenderness. An IV was placed, basic labs including LFTs and urinalysis ordered. She was given a bolus of lactated Ringer's as well as Phenergan for her nausea. Right upper quadrant ultrasound ordered with no signs of cholecystitis or any gallbladder disease. Labs otherwise unremarkable other than potential urinary tract infection. Given she is we will treat with ceftriaxone here followed by her prescription sent home. Otherwise her c onsistent vomiting is more consistent with hyperemesis gravidarum. After the liter of lactated Ringer she was given a liter of D5 NS given the ketones in her urine. Symptoms significantly improved. I believe she is stable for discharge with outpatient follow-up. She was sent home with strict return precautions. Diagnostic Imaging Diagonstic Imaging: Ultrasound (RUQ abdomen) Comments [facility] [place], [place] NAME: MARILU DICKINSON [facility] REC#: [id number] PT STATUS: REG ER : 1995 PHYSICIAN: ELTON CLEVELAND MD ADMIT DATE: 02/07/21/ER Draft Date of Exam:02/07/21 US ABDOMEN LIMITED [id number] PROCEDURE: US Abdomen, limited. TECHNIQUE: Multiple realtime grayscale and color Doppler images were obtained over the abdomen in various projections. INDICATION: Right upper quadrant abdominal pain, nausea and vomiting. COMPARISON: CT abdomen and pelvis performed on 11/20/2018. FINDINGS: Liver: Normal in size and echotexture. No focal lesion is seen. There is appropriate hepatopetal flow in the main portal vein. Gallbladder: Normal. No stones or gallbladder wall thickening. No pericholecystic fluid. Negative sonographic Win's sign. Biliary Tree: No intrahepatic or extrahepatic bile duct dilation is identified. The proximal common duct measures 0.4 cm in diameter. Pancreas: No abnormality in the visualized portions of the pancreas. Right kidney: Normal parenchymal echotexture and thickness. No hydronephrosis, stone or mass. Right renal length is 12.4 cm. Other: The visualized aorta and IVC are normal in caliber and contour. No abdominal free fluid is identified. IMPRESSION: Right upper quadrant abdominal ultrasound is within normal limits. No findings to account for the patient's symptoms. Dictated on workstation # [id number] Dict: 02/07/21 1103 Trans: 02/07/21 1106 [facility] [place] [id number] Interpreted by: KYRA GILLILAND DO Electronically signed by: Departure Impression Primary Impression: Hyperemesis gravidarum Disposition: 01 HOME, SELF-CARE Condition: Stable Departure-Patient Inst. Decision time for Depature: 13:15 Referrals: ASHLI RYAN MD (PCP/Family) Primary Care Physician Patient Instructions: Hyperemesis Gravidarum Add. Discharge Instructions: You are seen in the emergency department for abdominal pain and vomiting during . Your labs are reassuring although it does look like you have a urinary tract infection. We will send antibiotics to your pharmacy, and you did get an IV dose of antibiotics today, so you are not due for antibiotics until tomorrow. You also have what is likely called hyperemesis gravidarum which is a lot of vomiting during , which typically gets better the further along in you get. I recommend taking biut-mjc-ysjoqxt doxylamine and hmed-tei-enjvdon vitamin B6 regularly. Please call Dr. Padilla to let her know you are continuing to vomit, and she may want to prescribe other medications for nausea and vomiting during . Your ultrasound showed a normal gallbladder. Scripts Promethazine HCl (Promethazine Tablet) 25 Mg Tablet 12.5 MG PO Q6H PRN for NAUSEA/VOMITING for 7 Days, #14 TAB Prov: ELTON CLEVELAND MD 02/07/21 Cefdinir (Cefdinir) 300 Mg Capsule 300 MG PO BID for 5 Days, #10 CAP 0 Refills Prov: ELTON CLEVELAND MD 02/07/21 Work/School Note: Work Release Form Date Seen in the Emergency Department: Feb 07, 2021 Return to Work: Feb 08, 2021 Restrictions: No Restrictions ELTON CLEVELAND MD Feb 07, 2021 09:57
[2021-02-07 10:09] LABS: BILIRUBIN,URINE NEGATIVE (NEGATIVE); CLARITY,URINE SL CLOUDY; COLOR,URINE ORANGE; GLUCOSE, URINE (UA) NEGATIVE (NEGATIVE); KETONES,URINE 1+ (NEGATIVE); LEUKOCYTE ESTERASE ,URINE TRACE (NEGATIVE); NITRITE,URINE NEGATIVE (NEGATIVE); PH,URINE 7.5 (5-9); PROTEIN,URINE TRACE (NEGATIVE)
[2021-02-07 10:18] LABS: BACTERIA,URINE MODERATE /HPF
[2021-02-07] MEDS ORDERED: D5 NS 1000 ML IV SOLUTION 1,000 ML IV STA (10:24)
[2021-02-07] MEDS ORDERED: PROMETHAZINE INJ 25 MG/ML (PHENERGAN) AMP IVP ONE (10:30)
[2021-02-07] MEDS ORDERED: cefTRIAXone 1 GM PRE-MIX 50 ML IV ONE (10:30)
[2021-02-07 10:33] LABS: BASOPHILS % (AUTO) 0 % (0-10); EOSINOPHILS % (AUTO) 0 % (0-10); HEMATOCRIT 38 % (35-52); HEMOGLOBIN 12.7 g/dL (11.5-16.0); LYMPHOCYTES # (AUTO) 0.4 10^3/uL (1.0-4.0); LYMPHOCYTES % (AUTO) 4 % (12-44); MEAN CORPUSCULAR HEMOGLOBIN 27 pg (25-34); MEAN CORPUSCULAR HGB CONC 33 g/dL (32-36); MEAN CORPUSCULAR VOLUME 81 fL (80-99); MEAN PLATELET VOLUME 11.3 fL (9.0-12.2); MONOCYTES # (AUTO) 0.4 10^3/uL (0.0-1.0); MONOCYTES % (AUTO) 4 % (0-12); NEUTROPHILS # (AUTO) 9.1 10^3/uL (1.8-7.8); NEUTROPHILS % (AUTO) 92 % (42-75); PLATELET COUNT 238 10^3/uL (130-400); WHITE BLOOD COUNT 9.9 10^3/uL (4.3-11.0)
[2021-02-07 10:39] LABS: ALBUMIN 3.7 GM/DL (3.2-4.5); POTASSIUM 3.8 MMOL/L (3.6-5.0)
[2021-02-07 10:41] LABS: CALCIUM 8.8 MG/DL (8.5-10.1)
[2021-02-07 10:42] LABS: TOTAL PROTEIN 6.7 GM/DL (6.4-8.2)
[2021-02-07 10:44] LABS: BILIRUBIN,TOTAL 0.5 MG/DL (0.1-1.0)
[2021-02-07 10:45] LABS: CREATININE SERUM 0.53 MG/DL (0.60-1.30)
--- NOTE | 2021-02-07 11:07 | Diagnostic Imaging Report ---
PROCEDURE: US Abdomen, limited. TECHNIQUE: Multiple realtime grayscale and color Doppler images were obtained over the abdomen in various projections. INDICATION: Right upper quadrant abdominal pain, nausea and vomiting. COMPARISON: CT abdomen and pelvis performed on 11/20/2018. FINDINGS: Liver: Normal in size and echotexture. No focal lesion is seen. There is appropriate hepatopetal flow in the main portal vein. Gallbladder: Normal. No stones or gallbladder wall thickening. No pericholecystic fluid. Negative sonographic Win's sign. Biliary Tree: No intrahepatic or extrahepatic bile duct dilation is identified. The proximal common duct measures 0.4 cm in diameter. Pancreas: No abnormality in the visualized portions of the pancreas. Right kidney: Normal parenchymal echotexture and thickness. No hydronephrosis, stone or mass. Right renal length is 12.4 cm. Other: The visualized aorta and IVC are normal in caliber and contour. No abdominal free fluid is identified. IMPRESSION: Right upper quadrant abdominal ultrasound is within normal limits. No findings to account for the patient's symptoms. Dictated by: Dictated on workstation # [id number]
[2021-02-07 11:47] LABS: BAND NEUTROPHILS 4 %; NEUTROPHILS % (MANUAL) 88 %
[2021-02-07 11:48] LABS: BASOPHILS % (MANUAL) 0 %; EOSINOPHILS % (MANUAL) 0 %; LYMPHOCYTES % (MANUAL) 5 %; MONOCYTES % (MANUAL) 3 %; RBC MORPH NORMAL
[2021-02-07] MEDS ORDERED: CEFD300C3 PO (12:54)
[2021-02-07] MEDS ORDERED: PROM25TA14 PO (12:55)
[2021-02-07 14:19] VITALS: BP 112/62
== END 2021-02-07 14:19 | disposition home or self-care (01) ==
LOC: EDUNIT# 09:18 → ER 09:20
DX: O21.0 Mild hyperemesis gravidarum (principal); E03.9 Hypothyroidism, unspecified; F41.9 Anxiety disorder, unspecified; F20.9 Schizophrenia, unspecified; F31.9 Bipolar disorder, unspecified; E66.9 Obesity, unspecified; Z3A.17 17 weeks gestation of pregnancy; Z79.890 Hormone replacement therapy; Z79.899 Other long term (current) drug therapy
CPT/HCPCS: 36415; 76705; 80053; 81000; 83690; 85007; 85027; 87088

== ENCOUNTER 2021-03-08 23:49 | Emergency (ER) | payer MEDICARE, MEDICAID ==
[~2021-03-08] VITALS: Ht 160 cm; Wt 105.0 kg
[~2021-03-08 23:49] MED LIST changes: +CEFD300C3 PO; +PROM25TA14 PO
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
[2021-03-09 01:04] LABS: BILIRUBIN,URINE NEGATIVE (NEGATIVE); CLARITY,URINE CLEAR; COLOR,URINE ORANGE; GLUCOSE, URINE (UA) NEGATIVE (NEGATIVE); KETONES,URINE 3+ (NEGATIVE); LEUKOCYTE ESTERASE ,URINE NEGATIVE (NEGATIVE); NITRITE,URINE NEGATIVE (NEGATIVE); PROTEIN,URINE NEGATIVE (NEGATIVE)
[2021-03-09 01:21] LABS: BASOPHILS % (AUTO) 0 % (0-10); EOSINOPHILS # (AUTO) 0.1 10^3/uL (0.0-0.3); EOSINOPHILS % (AUTO) 1 % (0-10); HEMATOCRIT 35 % (35-52); HEMOGLOBIN 11.2 g/dL (11.5-16.0); LYMPHOCYTES % (AUTO) 20 % (12-44); MEAN CORPUSCULAR HEMOGLOBIN 27 pg (25-34); MEAN CORPUSCULAR HGB CONC 32 g/dL (32-36); MEAN CORPUSCULAR VOLUME 83 fL (80-99); MEAN PLATELET VOLUME 10.5 fL (9.0-12.2); MONOCYTES # (AUTO) 0.6 10^3/uL (0.0-1.0); MONOCYTES % (AUTO) 6 % (0-12); NEUTROPHILS % (AUTO) 72 % (42-75); PLATELET COUNT 232 10^3/uL (130-400); WHITE BLOOD COUNT 9.8 10^3/uL (4.3-11.0)
[2021-03-09 01:23] LABS: BACTERIA,URINE TRACE /HPF
[2021-03-09 01:34] LABS: ALBUMIN 3.8 GM/DL (3.2-4.5)
[2021-03-09 01:35] LABS: CHLORIDE 104 MMOL/L (98-107); SODIUM 136 MMOL/L (135-145)
[2021-03-09 01:36] LABS: CALCIUM 9.3 MG/DL (8.5-10.1)
[2021-03-09 01:37] LABS: GLUCOSE 79 MG/DL (70-105)
[2021-03-09 01:38] LABS: CARBON DIOXIDE 19 MMOL/L (21-32)
[2021-03-09 01:39] LABS: BILIRUBIN,TOTAL 0.5 MG/DL (0.1-1.0)
[2021-03-09 01:40] LABS: ALKALINE PHOSPHATASE 65 U/L (40-136)
[2021-03-09 01:41] LABS: CREATININE SERUM 0.54 MG/DL (0.60-1.30); GFR ESTIMATED 138
[2021-03-09 01:41] LABS: AMPHETAMINE SCREEN, URINE NEGATIVE (NEGATIVE); BARBITURATE SCREEN URINE NEGATIVE (NEGATIVE); BENZODIAZEPINES SCREEN URINE NEGATIVE (NEGATIVE); CANNABINOID SCREEN, URINE POSITIVE (NEGATIVE); COCAINE SCREEN URINE NEGATIVE (NEGATIVE); METHADONE STAT NEGATIVE (NEGATIVE); METHAMPHETAMINE SCREEN URINE S NEGATIVE (NEGATIVE); OPIATE SCREEN URINE NEGATIVE (NEGATIVE); OXYCODONE STAT NEGATIVE (NEGATIVE); PROPOXYPHENE STAT NEGATIVE (NEGATIVE); TRICYCLIC ANTIDEPRESSANTS SCRE NEGATIVE (NEGATIVE)
[2021-03-09 01:42] LABS: BUN/CREATININE RATIO 15
[2021-03-09 01:43] LABS: ALANINE AMINOTRANSFERASE 17 U/L (0-55)
[2021-03-09 02:26] VITALS: BP 123/82
[2021-03-09] MEDS ORDERED: KCL 10 MEQ TAB (MICRO K) PO ONE (02:30)
== END 2021-03-09 02:27 | disposition home or self-care (01) ==
LOC: EDUNIT# 23:49 → ER 23:50
DX: O99.322 Drug use complicating pregnancy, second trimester (principal); F12.90 Cannabis use, unspecified, uncomplicated; E87.6 Hypokalemia; E66.9 Obesity, unspecified; F41.9 Anxiety disorder, unspecified; F20.9 Schizophrenia, unspecified; F31.9 Bipolar disorder, unspecified; E03.9 Hypothyroidism, unspecified; Z3A.21 21 weeks gestation of pregnancy; Z72.0 Tobacco use; Z79.890 Hormone replacement therapy; Z79.899 Other long term (current) drug therapy
CPT/HCPCS: 80053; 80306; 81000; 85025; 99283; G0480; 36415; 80320

== ENCOUNTER 2021-05-30 03:48 | Observation (INO) | payer MEDICARE, MEDICAID ==
[~2021-05-30] VITALS: Ht 160 cm; Wt 111.8 kg
[2021-05-30] VITALS (10 sets, daily range): BP systolic 124–137; BP diastolic 64–82
[2021-05-30] MEDS ORDERED: BETAMETHASONE ACE/NA PHOS 6 MG/ML (CELESTONE SOLUSPAN) ONE (04:35)
[2021-05-30] MEDS ORDERED: NS (IVPB) 0 ML ONE (04:35)
[2021-05-30] MEDS ORDERED: AMPICILLIN 2,000 MG/14.8 ML (IV USE) ONE (04:35)
[2021-05-30] MEDS ORDERED: AZITHROMYCIN INJECTION 500 MG/5 ML VIAL ONE (04:38)
[2021-05-30 04:57] LABS: BILIRUBIN,URINE NEGATIVE (NEGATIVE); CLARITY,URINE CLEAR; COLOR,URINE YELLOW; GLUCOSE, URINE (UA) NEGATIVE (NEGATIVE); KETONES,URINE NEGATIVE (NEGATIVE); LEUKOCYTE ESTERASE ,URINE NEGATIVE (NEGATIVE); NITRITE,URINE NEGATIVE (NEGATIVE); PROTEIN,URINE NEGATIVE (NEGATIVE)
[2021-05-30] MEDS ORDERED: AZITHROMYCIN 250 MG TAB (ZITHROMAX) PO NR (05:00)
[2021-05-30] MEDS ORDERED: NIFEdipine 10 MG CAPS (WOMEN'S SERVICES ONLY!!!) PO ONE (05:00)
[2021-05-30] MEDS ORDERED: AMPICILLIN FOR IV USE 2,000 MG in WATER (STERILE) FOR INJECTION 14.8 ML IV ONE (05:00)
[2021-05-30] MEDS ORDERED: D5 LR IV SOLUTION 1,000 ML IV SCH ×2 (05:00→05:45)
[2021-05-30 05:07] LABS: AMORPHOUS SEDIMENT,UR FEW AMOR URATES /LPF; BACTERIA,URINE TRACE /HPF; SQUAMOUS EPITHELIAL CELL,UR 0-2 /HPF
--- NOTE | 2021-05-30 05:24 | History & Physical-OB ---
OB - Chief Complaint & HPI Date/Time Date of Admission: Date of Admission: Date seen by a Provider: May 30, 2021 Time Seen by a Provider: 05:05 Chief Complaint/History OB-Reason for Admission/Chief: Rupture of Membranes Hx : 1 Hx Para: 0 Expected Date of Delivery: July 15, 2021 Gestational Age in Weeks: 33 Gestational Age in Days: 3 Other reason for admission: 26 yo G1 at 33w3d presented to Labor and Delivery after she noticed a large gush of fluid in bed at about 3 am, she got up to go to the bathroom and continued to gush liquid that was blood tinged and then she started to have some cramping. She reports normal movement and is feeling contractions about every 5 minutes. Prior to this, she had partial placenta previa at 14 weeks, resolved on repeat US, and has history of schizoaffective disorder and borderline personality disorder, she did have some issues with auditory hallucinations around 20 weeks which seemed partially related to promethazine, ultimately she was started on Abilify by her mental health provider and has been doing well since then. She denies fever, nasal congestion, sore throat, chest pain, cough, vomiting, diarrhea. Admits nausea and intermittent constipation. History of Labs A+, antibody neg, RI. HIV/HepB/RPR/HepC negative. GC/chlamydia neg. 1 hour glucola neg. Allergies and Home Medications Allergies Coded Allergies: haloperidol (Verified Allergy, Mild, 01/16/20) Patient Home Medication List Home Medication List Reviewed: Yes Aripiprazole (Abilify) 15 Mg Tablet, 15 MG PO DAILY, (Reported) Entered as Reported by: ASHLI RYAN on 05/30/21526 Last Action: Reviewed Ondansetron (Ondansetron Odt) 4 Mg Tab.rapdis, 4 MG PO Q4H Prescribed by: DAVID DUNBAR on 11/20/18721 Last Action: Reviewed Vit No.124/Iron/FA ( Vitamin Tablet) 1 Each Tablet, 1 EACH PO DAILY, (Reported) Entered as Reported by: ASHLI RYAN on 05/30/21526 Last Action: Reviewed Discontinued Medications Benztropine Mesylate (Benztropine Mesylate) 1 Mg Tablet, 1 MG PO Q6H PRN for dystonia Prescribed by: NANCY FLORES on 05/11/20 0757 Last Action: Discontinued Cefdinir (Cefdinir) 300 Mg Capsule, 300 MG PO BID Prescribed by: ELTON CLEVELAND on 02/07/21 1254 Last Action: Discontinued Divalproex Sodium (Depakote ER) 500 Mg Tab.er.24h, 1,000 MG PO HS, (Reported) Entered as Reported by: RONEN ZAMORA on 01/29/17 1033 Last Action: Discontinued Doxylamine/Pyridoxine HCl (Carmela Dr 10-10 mg Tablet) 1 Each Tablet.dr, 1 EACH PO Q6H PRN for NAUSEA-1ST LINE Prescribed by: NANCY FLORES on 11/27/20 0119 Last Action: Discontinued Fluoxetine HCl (Prozac) 20 Mg Capsule, 20 MG PO HS, (Reported) Entered as Reported by: ROBBIE SAVAGE on 01/29/17 05 Last Action: Discontinued Hyoscyamine Sulfate (Levsin-Sl) 0.125 Mg Tab.subl, 1-2 TAB SL Q4H Prescribed by: DAVID DUNBAR on 11/20/18721 Last Action: Discontinued Levothyroxine Sodium (Synthroid) 25 Mcg Tablet, 25 MCG PO DAILY, (Reported) Entered as Reported by: RICHARD LYNCH on 12/22/168 Last Action: Discontinued Nitrofurantoin Monohyd/M-Cryst (Macrobid 100 mg Capsule) 100 Mg Capsule, 1 TAB PO BID Prescribed by: DAVID DUNBAR on 01/15/20 0538 Last Action: Discontinued Ondansetron (Ondansetron Odt) 4 Mg Tab.rapdis, 4 MG PO Q8H PRN for nausea Prescribed by: YORDAN COUCH on 12/17/20 0153 Last Action: Discontinued Paliperidone (Invega) 1.5 Mg Tab.er.24, Unknown Dose PO, (Reported) Entered as Reported by: RIHCARD LYNCH on 07/14/17 1603 Last Action: Discontinued Pantoprazole Sodium (Protonix) 40 Mg Tablet.dr, 40 MG PO DAILY Prescribed by: DAVID DUNBAR on 11/20/18721 Last Action: Discontinued Promethazine HCl (Promethazine Tablet) 25 Mg Tablet, 12.5 MG PO Q6H PRN for NAUSEA/VOMITING Prescribed by: ELTON CLEVELAND on 02/07/21 8295 Last Action: Discontinued OB - History Hx of Present Care: Yes Ultrasounds: Normal mid trimester US (partial placenta previa at 14 weeks, resolved at 23 week US) Medical Complications: Psychiatric Information Induced Hypertension: No Maternal Gestational Diabetes: No Hemorrhage: No Obstetrical History Hx : 1 Hx Para: 0 Patient Past Medical History PMHx: Schizoaffective disorder Borderline personality disorder Conversion disorder Multiple hospitalizations for mental health and suicidality SurgHx: Denies Social History/Family History Alcohol Use: Denies Use Recreational Drug Use: No (THC once early in ) Smoking Cessation: Former smoker 2nd Hand Smoke Exposure: No Immunizations Influenza Vaccine Up-to-Date: No; Not Current First/Initial COVID19 Vaccine: None Tetanus Booster (TDap): Less than 5yrs (05/14/21) Rubella: immune RPR/VDRL: Negative GBS Status: Unknown HBsAG: Negative OB - Admission Exam Physical Exam Vitals: Vital Signs 05/30/21 04:57 Temp 36.5 Pulse 95 Resp 18 Pulse Ox 99 O2 Delivery Room Air HEENT: NCAT Heart: Rhythm Normal Lungs: Clear Abdomen: Non tender Extremities: Normal Cervical Dilatation: 3cm Heart Rate: 120's (at 0532) Decelerations: No Decelerations Retirement Variability: Average (6-25) Contractions on Admission: 6-10 Minutes Apart Labs Laboratory Tests Test 05/30/21 04:00 05/30/21 04:05 Range/Units Urine Color YELLOW Urine Clarity CLEAR Urine pH 7.0 5-9 Urine Specific [place] 1.015 L 1.016-1.022 Urine Protein NEGATIVE NEGATIVE Urine Glucose (UA) NEGATIVE NEGATIVE Urine Ketones NEGATIVE NEGATIVE Urine Nitrite NEGATIVE NEGATIVE Urine Bilirubin NEGATIVE NEGATIVE Urine Urobilinogen 0.2 < = 1.0 MG/DL Urine Leukocyte Esterase NEGATIVE NEGATIVE Urine RBC (Auto) 2+ H NEGATIVE Urine RBC 5-10 H /HPF Urine WBC NONE /HPF Urine Squamous Epithelial Cells 0-2 /HPF Urine Crystals PRESENT H /LPF Urine Amorphous Sediment FEW PRICILA URATES H /LPF Urine Bacteria TRACE /HPF Urine Casts NONE /LPF Urine Mucus SMALL H /LPF Urine Culture Indicated NO Membranes Rupture POSITIVE OB - Assessment/Plan/Diagnosis Assessment Assessment: rupture of membranes Admission Dx rupture of membranes Admission Status: Observation Plan Problems: (1) Rupture of membranes with clear amniotic fluid Assessment & Plan: Magnesium, betamethasone, azithromycin and ampicillin started, discussed with [facility] and will transfer due to 33 week status. (2) 33 weeks gestation of (3) Schizoaffective disorder Assessment & Plan: Stable on current medication Qualifiers: Qualified Codes: F25.0 - Schizoaffective disorder, bipolar type ASHLI RYAN MD May 30, 2021 05:24
[2021-05-30] MEDS ORDERED: MAGNESIUM 4 GM/100 ML IVPB 100 ML IV ONE (05:26)
[2021-05-30] MEDS ORDERED: MAGNESIUM SULFATE DRIP 500 ML IV ONE (05:26)
[2021-05-30] MEDS ORDERED: PREN-142 PO (05:27)
[2021-05-30] MEDS ORDERED: ARIP15TA4 PO (05:27)
[2021-05-30] MEDS ORDERED: MAGNESIUM 4 GM/100 ML IVPB 100 ML IV SCH (05:45)
[2021-05-30] MEDS ORDERED: CALCIUM GLUC. 10% 4.65 MEQ/10 ML VIAL IV PRN (05:45)
[2021-05-30] MEDS ORDERED: MAGNESIUM SULFATE DRIP 500 ML IV SCH (06:15)
--- NOTE | 2021-05-30 06:31 | Discharge Summary ---
Discharge Summary Hospital Course Problems/Diagnosis: (1) Rupture of membranes with clear amniotic fluid Status: Acute Assessment & Plan: Transferred to [place] due to 33 week gestation, given ampicillin, azithromycin and magnesium before transfer (2) 33 weeks gestation of Status: Acute (3) Schizoaffective disorder Status: Chronic Assessment & Plan: Stable on home abilify Qualifiers: Qualified Codes: F25.0 - Schizoaffective disorder, bipolar type Hospital Course Date of Admission: May 30, 2021 at 04:52 Admission Diagnosis : Family Physician/Provider: Ashli Maloney MD Date of Discharge: 05/30/21 Discharge Diagnosis: See problem list Hospital Course: See problem list Labs and Pending Lab Test: Laboratory Tests 05/30/21 04:00: Urine Color YELLOW, Urine Clarity CLEAR, Urine pH 7.0, Urine Specific [place] 1.015L, Urine Protein NEGATIVE, Urine Glucose (UA) NEGATIVE, Urine Ketones NEGATIVE, Urine Nitrite NEGATIVE, Urine Bilirubin NEGATIVE, Urine Urobilinogen 0.2, Urine Leukocyte Esterase NEGATIVE, Urine RBC (Auto) 2+H, Urine RBC 5-10H, Urine WBC NONE, Urine Squamous Epithelial Cells 0-2, Urine Crystals PRESENTH, Urine Amorphous Sediment FEW PRICILA URATESH, Urine Bacteria TRACE, Urine Casts NONE, Urine Mucus SMALLH, Urine Culture Indicated NO 05/30/21 04:05: Membranes Rupture POSITIVE 05/30/21 05:07: Magnesium Level 1.6 Home Meds Active Ondansetron Odt (Ondansetron) 4 Mg Tab.rapdis 4 Mg PO Q4H Reported Vitamin Tablet ( Vit No.124/Iron/FA) 1 Each Tablet 1 Each PO DAILY Abilify (Aripiprazole) 15 Mg Tablet 15 Mg PO DAILY Assessment/Pt DC Instructions Transferred to [place] Discharge Physical Examination Allergies: Coded Allergies: haloperidol (Verified Allergy, Mild, 01/16/20) ASHLI MALONEY MD May 30, 2021 06:31
[2021-05-30] MEDS ORDERED: BETAMETHASONE ACE/NA PHOS 6 MG/ML (CELESTONE SOLUSPAN) IM SCH (09:00)
== END 2021-05-30 06:28 | disposition short-term general hospital (02) ==
LOC: WSo 03:48 → LDRP 03:49 → WSo 04:52 → LDRP 04:52
PROVIDERS: ADMIT Family Medicine; ATTEND Family Medicine
DX: O42.013 Preterm premature rupture of membranes, onset of labor within 24 hours of rupture, third trimester (principal); O99.343 Other mental disorders complicating pregnancy, third trimester; Z3A.33 33 weeks gestation of pregnancy; F25.9 Schizoaffective disorder, unspecified; F60.3 Borderline personality disorder; Z88.8 Allergy status to other drugs, medicaments and biological substances
CPT/HCPCS: 36415; 81000; 83735; 84112; 96361; 96372; 96374; 96375; 96376; G0378

== ENCOUNTER 2021-10-31 23:35 | Emergency (ER) | payer MEDICARE, MEDICAID ==
[2021-10-31 23:35] VITALS: BP 117/77
[~2021-10-31 23:35] MED LIST changes: +PREN-142 PO
--- NOTE | 2021-10-31 23:55 | ED Psychosocial ---
General Stated Complaint: SUICIDAL IDEOLOGY Source: patient Exam Limitations: no limitations History of Present Illness Date Seen by Provider: Oct 31, 2021 Time Seen by Provider: 23:36 Initial Comments Patient to the ER by EMS from home with chief complaint that she has having suicidal thoughts. Has been having them since the delivery of her child 5 month s ago. She was lying in the bathtub with her head propped up thinking that she could drown herself as a plan to kill herself. She denies cutting on herself or taking any pills to kill herself. She has been having suicidal thoughts and depression all throughout her life. He has a history of schizophrenia. She does not really recall time very well right now and cannot tell us when any of the symptoms started to get worse. She states that her significant other became concerned about her in the bathtub and called the police. The police summoned EMS to have her come to the ER to be screened. The patient states she has been both inpatient psych hospitals at [place], [place] as well as [place]. She says they do not give her a permanent fix and this is discouraging to her. She does not feel like she will ever get better. She feels that it did get worse . She is not sure who she followed with for obstetrics but it was somebody in [place]. Allergies and Home Medications Allergies Coded Allergies: haloperidol (Verified Allergy, Mild, 01/16/20) Patient Home Medication List Home Medication List Reviewed: Yes Aripiprazole (Abilify) 15 Mg Tablet, 15 MG PO DAILY, (Reported) Entered as Reported by: ASHLI RYAN on 05/30/21526 Ondansetron (Ondansetron Odt) 4 Mg Tab.rapdis, 4 MG PO Q4H Prescribed by: DAVID DUNBAR on 11/20/18721 Vit No.124/Iron/FA ( Vitamin Tablet) 1 Each Tablet, 1 EACH PO DAILY, (Reported) Entered as Reported by: ASHLI RYAN on 05/30/21526 Review of Systems Constitutional: No chills, No diaphoresis EENTM: No ear discharge, No ear pain Respiratory: No cough, No phlegm, No short of breath Gastrointestinal: No abdominal pain, No nausea, No vomiting Genitourinary: No discharge, No dysuria Musculoskeletal: No back pain, No joint pain All Other Systems Reviewed Negative Unless Noted: Yes Past Ruzxvtd-Cstcwf-Zqfkfc Hx Patient Social History Tobacco Use?: No Use of E-Cig and/or Vaping dev: No Substance use?: No Immunizations Up To Date Tetanus Booster (TDap): Less than 5yrs First/Initial COVID19 Vaccinat: None Seasonal Allergies Seasonal Allergies: No Past Medical History Surgery/Hospitalization HX: bipolar, schizoaffective disorder, thyroid issues but does not take medication. Surgeries: No Respiratory: No Cardiac: No Neurological: Yes Headaches /Migraines Reproductive Disorders: Yes Female Reproductive Disorders: Menstrual Problems Genitourinary: Yes UTI-Chronic Gastrointestinal: No Musculoskeletal: No Endocrine: Yes (OBESITY; REFUSES TO TAKE THYROID MEDICATIONS) Hypothyroidsim HEENT: No Cancer: No Psychosocial: Yes (CONVERSION DISORDER) Anxiety, Suicide Attempts, Bipolar, Personality Disorder, Schizophrenia, Depression Integumentary: No Blood Disorders: No Family Medical History Asthma 19 MOTHER No Pertinent Family Hx SOCIAL HISTORY: -ETOH-RARE USE -DRUGS-MARIJUANA -SMOKES 1-2 PPD PSYCH HISTORY--EXTENSIVE PSYCH ISSUES, SUICIDAL "THOUGHTS" BUT ONLY 1 ACTUAL ATTEMPT IN 2017. VERY MANIPULATIVE BEHAVIOR. EXTREME NON-COMPLIANCE IN ALL ASPECTS OF CARE Physical Exam Vital Signs - First Documented 10/31/21 23:35 Temp 36.4 Pulse 75 Resp 20 B/P (MAP) 117/77 (90) Pulse Ox 98 O2 Delivery Room Air Capillary Refill : Height, Weight, BMI Height: 5'3.00" Weight: 275lbs. 5.0oz. 124.863205cy; 43.67 BMI Method:Stated General Appearance: WD/WN, no apparent distress HEENT: normal ENT inspection, TMs normal Neck: supple, normal inspection Respiratory: normal breath sounds, no respiratory distress, no accessory muscle use Cardiovascular: normal peripheral pulses, regular rate, rhythm Peripheral Pulses: 2+ Radial Pulses (R), 2+ Radial Pulses (L) Gastrointestinal: normal bowel sounds, non tender, soft Extremities: normal inspection, normal capillary refill Neurologic/Psychiatric: alert, normal mood/affect Appearance/Memory: appropriate appearance, appropriate insight Suicide Risk Suicide Risk Suicide Risk Level / RN Screen: Moderate Low Suicide Risk Level []Suicidal Ideation WITHOUT method, intent, plan or behavior more than a month ago []]Modifiable risk factors and strong protective factors []No reported history of suicidal ideation or behavior []Patient reports/exhibits symptoms consistent with psychosis []Patient reports a plan that would be unrealistic/impossible to complete and intent []Suicide attempt prior to arrival (Indicates at LEAST Low Suicide Risk, consider other risk factors) Moderate Suicide Risk Level: []Suicidal ideation with method, WITHOUT plan, intent or behavior in the past month []Multiple risk factors and few protective factors []Patient reports intent to follow through on plan to end life if allowed to leave hospital, and has attempted to elope from the hospital High Suicide Risk Level: [] Suicidal ideation with intent or intent with a plan in the past month [] Patient has harmed self or attempted suicide while in the hospital [] Patient has hx of or current Command Auditory hallucinations to harm self or others that they follow without hesitation [] Patient refuses to disclose plan, and indicates intent to complete [] Patient reports plan that is possible to accomplish and/or has means to complete Risk factors supporting recommendation: [] Non-compliance with treatment (acute or chronic) [] Patient has access to or owns firearms and/or stockpiled medications [] Hx Impulsive behavior [] Pending incarceration or homelessness [] Sexual abuse [] Family history and/or exposure to suicide [] Adverse childhood experiences [] Exposure to violence or negative socio-political cultural, and economic forces [] Current or hx of substance use/abuse [] Chronic physical pain or other acute medical problem (AIDS, COPD, Cancer, etc) [] Perceived burden on family or others [] Patient has attempted to elope [] Unable to answer and/or unable to identify [] Refuses to agree to a safety plan Protective Factors supporting recommendation: [] Identifies reasons for living [] Future plans/goals [] Engaged in work or School [] Good family support network [] Good social support network [] Responsibility to family [] Belief that suicide is immoral, against their mosque beliefs [] High spirituality and involvement in [employer] community [] Fear of or dying due to pain and suffering [] Established outpt psychiatric services [] Unable to answer and/or unable to identify Risk Assessment Tool Score: Moderate Progress/Results/Core Measures Results/Orders Lab Results Laboratory Tests Test 10/31/21 23:59 11/01/21 00:03 11/01/21 00:10 Range/Units Urine Color YELLOW Urine Clarity SL CLOUDY Urine pH 5.5 5-9 Urine Specific [place] >=1.030 1.016-1.022 Urine Protein 1+ H NEGATIVE Urine Glucose (UA) NEGATIVE NEGATIVE Urine Ketones 1+ H NEGATIVE Urine Nitrite NEGATIVE NEGATIVE Urine Bilirubin NEGATIVE NEGATIVE Urine Urobilinogen 1.0 < = 1.0 MG/DL Urine Leukocyte Esterase 2+ H NEGATIVE Urine RBC (Auto) 1+ H NEGATIVE Urine RBC RARE /HPF Urine WBC 25-50 H /HPF Urine Squamous Epithelial Cells 5-10 /HPF Urine Crystals NONE /LPF Urine Bacteria MODERATE H /HPF Urine Casts NONE /LPF Urine Mucus MODERATE H /LPF Urine Culture Indicated YES Urine Test NEGATIVE NEGATIVE Urine Opiates Screen NEGATIVE NEGATIVE Urine Oxycodone Screen NEGATIVE NEGATIVE Urine Methadone Screen NEGATIVE NEGATIVE Urine Propoxyphene Screen NEGATIVE NEGATIVE Urine Barbiturates Screen NEGATIVE NEGATIVE Ur Tricyclic Antidepressants Screen NEGATIVE NEGATIVE Urine Phencyclidine Screen NEGATIVE NEGATIVE Urine Amphetamines Screen NEGATIVE NEGATIVE Urine Methamphetamines Screen NEGATIVE NEGATIVE Urine Benzodiazepines Screen NEGATIVE NEGATIVE Urine Cocaine Screen NEGATIVE NEGATIVE Urine Cannabinoids Screen POSITIVE H NEGATIVE Influenza Type A (RT-PCR) Not Detected Not Detecte Influenza Type B (RT-PCR) Not Detected Not Detecte SARS-CoV-2 RNA (RT-PCR) Not Detected Not Detecte White Blood Count 8.5 4.3-11.0 10^3/uL Red Blood Count 5.04 3.80-5.11 10^6/uL Hemoglobin 12.5 11.5-16.0 g/dL Hematocrit 40 35-52 % Mean Corpuscular Volume 78 L 80-99 fL Mean Corpuscular Hemoglobin 25 25-34 pg Mean Corpuscular Hemoglobin Concent 32 32-36 g/dL Red Cell Distribution Width 15.9 H 10.0-14.5 % Platelet Count 300 130-400 10^3/uL Mean Platelet Volume 10.3 9.0-12.2 fL Immature Granulocyte % (Auto) 0 % Neutrophils (%) (Auto) 59 42-75 % Lymphocytes (%) (Auto) 31 12-44 % Monocytes (%) (Auto) 7 0-12 % Eosinophils (%) (Auto) 2 0-10 % Basophils (%) (Auto) 0 0-10 % Neutrophils # (Auto) 5.0 1.8-7.8 10^3/uL Lymphocytes # (Auto) 2.7 1.0-4.0 10^3/uL Monocytes # (Auto) 0.6 0.0-1.0 10^3/uL Eosinophils # (Auto) 0.2 0.0-0.3 10^3/uL Basophils # (Auto) 0.0 0.0-0.1 10^3/uL Immature Granulocyte # (Auto) 0.0 0.0-0.1 10^3/uL Sodium Level 140 135-145 MMOL/L Potassium Level 3.4 L 3.6-5.0 MMOL/L Chloride Level 108 H 98-107 MMOL/L Carbon Dioxide Level 20 L 21-32 MMOL/L Anion Gap 12 5-14 MMOL/L Blood Urea Nitrogen 11 7-18 MG/DL Creatinine 0.82 0.60-1.30 MG/DL Estimat Glomerular Filtration Rate 101 BUN/Creatinine Ratio 13 Glucose Level 93 70-105 MG/DL Calcium Level 9.7 8.5-10.1 MG/DL Corrected Calcium 9.5 8.5-10.1 MG/DL Total Bilirubin 0.7 0.1-1.0 MG/DL Aspartate Amino Transf (AST/SGOT) 31 5-34 U/L Alanine Aminotransferase (ALT/SGPT) 37 0-55 U/L Alkaline Phosphatase 86 40-136 U/L Total Protein 7.5 6.4-8.2 GM/DL Albumin 4.3 3.2-4.5 GM/DL Salicylates Level < 5.0 L 5.0-20.0 MG/DL Acetaminophen Level < 10 L 10-30 UG/ML Serum Alcohol < 10 <10 MG/DL My Orders Orders - NANCY FLORES Ua Culture If Indicated (10/31/21 23:45) Cbc With Automated Diff (10/31/21 23:45) Comprehensive Metabolic Panel (10/31/21 23:45) Alcohol (10/31/21 23:45) Drug Screen Stat (Urine) (10/31/21 23:45) Acetaminophen (10/31/21 23:45) Salicylate (10/31/21 23:45) Ekg Tracing (10/31/21 23:45) Hcg,Qualitative Urine (10/31/21 23:45) Bh Status Checks/Observation O Q15M (10/31/21 23:45) Covid 19 Inhouse Test (10/31/21 23:55) Influenza A And B By Pcr (10/31/21 23:55) Urine Culture (10/31/21 23:59) Vital Signs/I&O 10/31/21 23:35 Temp 36.4 Pulse 75 Resp 20 B/P (MAP) 117/77 (90) Pulse Ox 98 O2 Delivery Room Air Progress Progress Note #1: Time: 23:52 Progress Note Medical screening exam including a COVID swab. Progress Note #2: Time: 00:27 Progress Note Patient stepped to the door and asked for the provider and states that she wants to kill herself with oxygen by keeping it deep down in her body. Asked that if this would actually work to kill her and this provider informed her that he did not believe that would be likely and she is had okay thanks bye and went and laid down. Progress Note #3: Time: 02:05 Progress Note Medically cleared. She is speaking to telehealth at this time. Progress Note #4: Time: 03:30 Progress Note Patient is cleared and they are going to fax us back a safety plan. Just before the safety plan got faxed back however the patient became restless and decided she wanted to just leave. She still denies any suicidal ideation. Since she did not sign the safety plan or wait despite trying to redirect her we did call [facility]. Departure Impression Primary Impression: Suicidal ideation Disposition: 07 AGAINST MEDICAL ADVICE Condition: Against Medical Advice Departure-Patient Inst. Decision time for Depature: 03:30 Referrals: ASHLI RYAN MD (PCP/Family) Primary Care Physician Patient Instructions: Suicide Prevention Add. Discharge Instructions: [id number] to get a hold of [facility] if you need help. NANCY FLORES Oct 31, 2021 23:55
[2021-11-01 00:09] LABS: BILIRUBIN,URINE NEGATIVE (NEGATIVE); CLARITY,URINE SL CLOUDY; COLOR,URINE YELLOW; GLUCOSE, URINE (UA) NEGATIVE (NEGATIVE); KETONES,URINE 1+ (NEGATIVE); LEUKOCYTE ESTERASE ,URINE 2+ (NEGATIVE); NITRITE,URINE NEGATIVE (NEGATIVE); PH,URINE 5.5 (5-9); PROTEIN,URINE 1+ (NEGATIVE)
[2021-11-01 00:17] LABS: BACTERIA,URINE MODERATE /HPF; RBC,URINE RARE /HPF; WBC,URINE 25-50 /HPF
[2021-11-01 00:18] LABS: AMPHETAMINE SCREEN, URINE NEGATIVE (NEGATIVE); BARBITURATE SCREEN URINE NEGATIVE (NEGATIVE); BENZODIAZEPINES SCREEN URINE NEGATIVE (NEGATIVE); CANNABINOID SCREEN, URINE POSITIVE (NEGATIVE); COCAINE SCREEN URINE NEGATIVE (NEGATIVE); HCG,QUALITATIVE URINE NEGATIVE (NEGATIVE); METHADONE STAT NEGATIVE (NEGATIVE); OPIATE SCREEN URINE NEGATIVE (NEGATIVE); OXYCODONE STAT NEGATIVE (NEGATIVE); PROPOXYPHENE STAT NEGATIVE (NEGATIVE); TRICYCLIC ANTIDEPRESSANTS SCRE NEGATIVE (NEGATIVE)
[2021-11-01 00:28] LABS: BASOPHILS % (AUTO) 0 % (0-10); EOSINOPHILS # (AUTO) 0.2 10^3/uL (0.0-0.3); EOSINOPHILS % (AUTO) 2 % (0-10); HEMATOCRIT 40 % (35-52); HEMOGLOBIN 12.5 g/dL (11.5-16.0); LYMPHOCYTES # (AUTO) 2.7 10^3/uL (1.0-4.0); LYMPHOCYTES % (AUTO) 31 % (12-44); MEAN CORPUSCULAR HEMOGLOBIN 25 pg (25-34); MEAN CORPUSCULAR HGB CONC 32 g/dL (32-36); MEAN CORPUSCULAR VOLUME 78 fL (80-99); MEAN PLATELET VOLUME 10.3 fL (9.0-12.2); MONOCYTES # (AUTO) 0.6 10^3/uL (0.0-1.0); MONOCYTES % (AUTO) 7 % (0-12); NEUTROPHILS % (AUTO) 59 % (42-75); PLATELET COUNT 300 10^3/uL (130-400); WHITE BLOOD COUNT 8.5 10^3/uL (4.3-11.0)
[2021-11-01 00:34] LABS: ALBUMIN 4.3 GM/DL (3.2-4.5); CHLORIDE 108 MMOL/L (98-107); POTASSIUM 3.4 MMOL/L (3.6-5.0); SODIUM 140 MMOL/L (135-145)
[2021-11-01 00:35] LABS: CALCIUM 9.7 MG/DL (8.5-10.1)
[2021-11-01 00:37] LABS: GLUCOSE 93 MG/DL (70-105); TOTAL PROTEIN 7.5 GM/DL (6.4-8.2)
[2021-11-01 00:38] LABS: BILIRUBIN,TOTAL 0.7 MG/DL (0.1-1.0); CARBON DIOXIDE 20 MMOL/L (21-32)
[2021-11-01 00:40] LABS: ALKALINE PHOSPHATASE 86 U/L (40-136); CREATININE SERUM 0.82 MG/DL (0.60-1.30); GFR ESTIMATED 101
[2021-11-01 00:42] LABS: BUN/CREATININE RATIO 13
[2021-11-01 00:43] LABS: SALICYLATE < 5.0 MG/DL (5.0-20.0)
[2021-11-01 00:44] LABS: ACETAMINOPHEN < 10 UG/ML (10-30); ALANINE AMINOTRANSFERASE 37 U/L (0-55)
== END 2021-11-01 02:52 | disposition left against medical advice (07) ==
LOC: EDUNIT# 23:35 → ER 23:37
DX: R45.851 Suicidal ideations (principal); E66.9 Obesity, unspecified; F17.210 Nicotine dependence, cigarettes, uncomplicated; Z68.41 Body mass index [BMI] 40.0-44.9, adult; Z20.822 Contact with and (suspected) exposure to COVID-19; Z28.310 Unvaccinated for COVID-19
CPT/HCPCS: 36415; 80053; 80306; 80320; 80329; 81000; 84703; 85025; 87088; 87636; 93005

== ENCOUNTER 2021-11-02 14:07 | Emergency (ER) | payer MEDICARE, MEDICAID ==
[~2021-11-02] VITALS: Ht 160 cm; Wt 109.7 kg
[2021-11-02 14:18] VITALS: BP 109/66
--- NOTE | 2021-11-02 14:28 | ED General ---
General Chief Complaint: Psych/Social Disorder Stated Complaint: MENTAL HEALTH Source of Information: Patient Exam Limitations: No Limitations (GENA ROBLES MED STUDENT) History of Present Illness Date Seen by Provider: Nov 02, 2021 Time Seen by Provider: 14:20 Initial Comments Amna Voss is a 26 yo female who presents with depression and medication concerns. Pt has hx of schizophrenia and post depression. Pt reports she was just seen on 10/31 in ED for suicidal ideations with a plan, but at that time she was feeling angry and yelled at everyone instead of accepting help. Pt left AMA prior to signing a safety plan. Pt reports today she is not feeling angry and is ready for help. Pt reports she has been wandering around town for the last two days and does not know where her baby is. She denies suicidal ideation currently, but states she is seeing things that are not there. She states she sees Nette Coats at [facility]. Post she was prescribed Latuda at [facility] for PPD. She believes this was around 1-2 months ago. She saw Nette Coats prior to coming to the ED on 10/31 for possible medication increase, but she was not receptive to this at the time. She is receptive to inpatient treatment and has been to both [place] and [facility] for prior schizophrenic episodes. Will get EKG and intake labs and check for a bed at [facility] in [place], [place]. (GENA ROBLES A MED STUDENT) Allergies and Home Medications Allergies Coded Allergies: haloperidol (Verified Allergy, Mild, 01/16/20) Patient Home Medication List Home Medication List Reviewed: Yes (YORDAN COUCH MD) Aripiprazole (Abilify) 15 Mg Tablet, 15 MG PO DAILY, (Reported) Entered as Reported by: ASHLI RYAN on 05/30/21526 Ondansetron (Ondansetron Odt) 4 Mg Tab.rapdis, 4 MG PO Q4H Prescribed by: DAVID DUNBAR on 11/20/18721 Vit No.124/Iron/FA ( Vitamin Tablet) 1 Each Tablet, 1 EACH PO DAILY, (Reported) Entered as Reported by: ASHLI RYAN on 05/30/21526 Review of Systems Review of Systems Constitutional: No chills, No fever EENTM: no symptoms reported Respiratory: No cough, No short of breath Cardiovascular: No chest pain, No palpitations Gastrointestinal: No abdominal pain, No nausea, No vomiting Genitourinary: no symptoms reported Musculoskeletal: no symptoms reported Skin: rash (heat rash on inner thighs bilaterally) Psychiatric/Neurological: No Symptoms Reported Hematologic/Lymphatic: No Symptoms Reported Immunological/Allergic: no symptoms reported (GENA ROBLES light STUDENT) Psychiatric/Neurological: Anxiety, Other (?visual hallucinations and possibly auditory - no "command" hallucinations) (YORDAN COUCH MD) All Other Systems Reviewed Negative Unless Noted: Yes (YORDAN COUCH MD) Past Mdlsvap-Davlnm-Azxhaz Hx Patient Social History Tobacco Use?: Yes Tobacco type used: Cigarettes Smoking Status: Current Everyday Smoker Smokeless Tobacco Frequency: Current Everyday User Substance use?: No Alcohol Use?: No Pt feels they are or have been: No (GENA ROBLES light STUDENT) Immunizations Up To Date Tetanus Booster (TDap): Less than 5yrs First/Initial COVID19 Vaccinat: None Second COVID19 Vaccination [place]: None Third COVID19 Vaccination Date: None (GENA ROBLES light STUDENT) Seasonal Allergies Seasonal Allergies: No (GENA ROBLES [facility]) Past Medical History Surgery/Hospitalization HX: bipolar, schizoaffective disorder, thyroid issues but does not take medication. Surgeries: No Respiratory: No Cardiac: No Neurological: Yes Headaches /Migraines Reproductive Disorders: Yes Female Reproductive Disorders: Menstrual Problems Genitourinary: Yes UTI-Chronic Gastrointestinal: No Musculoskeletal: No Endocrine: Yes (OBESITY; REFUSES TO TAKE THYROID MEDICATIONS) Hypothyroidsim HEENT: No Cancer: No Psychosocial: Yes (CONVERSION DISORDER) Anxiety, Suicide Attempts, Bipolar, Personality Disorder, Schizophrenia, Depression Integumentary: No Blood Disorders: No (GENA ROBLES light STUDENT) Family Medical History Asthma 19 MOTHER No Pertinent Family Hx SOCIAL HISTORY: -ETOH-RARE USE -DRUGS-MARIJUANA -SMOKES 1-2 PPD PSYCH HISTORY--EXTENSIVE PSYCH ISSUES, SUICIDAL "THOUGHTS" BUT ONLY 1 ACTUAL ATTEMPT IN 2017. VERY MANIPULATIVE BEHAVIOR. EXTREME NON-COMPLIANCE IN ALL ASPECTS OF CARE (GENA ROBLES light STUDENT) Physical Exam Vital Signs Vital Signs - First Documented 11/02/21 14:18 Temp 36.2 Pulse 88 Resp 18 B/P (MAP) 109/66 (80) Pulse Ox 99 (YORDAN COUCH MD) Vital Signs Capillary Refill : (GENA ROBLES MED STUDENT) Height, Weight, BMI Height: 5'3.00" Weight: 275lbs. 5.0oz. 124.650458xd; 43.67 BMI Method:Stated General Appearance: No Apparent Distress, Obese HEENT: PERRL/EOMI, Pharynx Normal Neck: Full Range of Motion, Normal Inspection Respiratory: Chest Non Tender, Lungs Clear Cardiovascular: Regular Rate, Rhythm, No Murmur Gastrointestinal: Normal Bowel Sounds, Non Tender Back: No CVA Tenderness Extremity: Normal Capillary Refill, Non Tender Neurologic/Psychiatric: Alert, Oriented x3, Depressed Affect Skin: Normal Color, Rash (erythematous excoriations on bilateral inner thighs) Lymphatic: No Adenopathy (GENA ROBLES STUDENT) Progress/Results/Core Measures Suspected Sepsis SIRS Temperature: Pulse: Respiratory Rate: Blood Pressure / Mean: (GENA ROBLES STUDENT) Results/Orders My Orders Orders - YORDAN COUCH MD Ekg Tracing (11/02/21 14:34) Ed Iv/Invasive Line Start (11/02/21 14:34) Monitor-Rhythm Ecg Trace Only (11/02/21 14:34) Bh Status Checks/Observation O Q15M (11/02/21 14:34) Ed Iv/Invasive Line Start (11/02/21 14:34) Isolation Central Supply Req (11/02/21 14:34) (YORDAN COUCH MD) Vital Signs/I&O 11/02/21 14:18 Temp 36.2 Pulse 88 Resp 18 B/P (MAP) 109/66 (80) Pulse Ox 99 (YORDAN COUCH MD) Vital Signs/I&O Capillary Refill : (GENA ROBLES MED STUDENT) Progress Note : Time: 15:10 Progress Note Pt currently refusing COVID swab and lab draws. States she wants to go home. Discussed with pt that lab draw and COVID swab are requirements for inpatient admission to a psych facility. Pt again wishes to go home. Discussed that she would have to leave AMA. Pt voiced understanding and agreed to leave AMA. (GENA ROBLES MED STUDENT) Progress Note : Time: 16:00 Progress Note Patient seen and evaluated by me. 26yo 5m post with history of schizophrenia. SHe states she has been walking around town for the last 2 days "having a psychotic break". No command hallucinations, but it seems like she may be having auditory hallucinations and she thinks visual as well. When I asked where her was, she said "I dont know, I think my boyfriend has him". SHe thinks she needs IP treatment to have her medications adjusted. She has not taken them the last 2 days. She states her bf encouraged her to come in today. Had a visit here to the ED recently, but became irate and signed AMA. SHe is quite somnolent, stating she hasnt slept in 2 days. No complaints of infection/illness'injury. Appears dishevelled/unkempt/dirty. VSS. SHortly after my eval, when nursing was attempting to obtain medical clearance labs/start an IV for fluids, the patient became upset (she is a "hard stick") she decided to leave AMA. Nursing and my medical student attempted to convince her to stay however, she could not be convinced, signed an AMA paper and left under her own power. No clinical or objective findings to warrant initiation of a psychiatric hold. SHe denied SI/HI. was not actively psychotic. She was allowed to leave. (YORDAN COUCH MD) ECG Initial ECG Impression Date: Nov 02, 2021 Initial ECG Impression Time: 15:15 Initial ECG Rhythm: Normal Sinus Initial ECG Impression: Nonspecific Changes (GENA ROBLES MED STUDENT) Departure Impression Primary Impression: Psychosis Qualified Codes: F29 - Unspecified psychosis not due to a substance or known physiological condition Additional Impressions: Hallucinations Depression Qualified Codes: F32.A - Depression, unspecified Schizoaffective disorder Qualified Codes: F25.9 - Schizoaffective disorder, unspecified Disposition: 07 AGAINST MEDICAL ADVICE Condition: Against Medical Advice Departure-Patient Inst. Referrals: ASHLI RYAN MD (PCP/Family) Primary Care Physician Add. Discharge Instructions: Discussed that refusal of intake labs and COVID swab would disqualify her for inpatient psych treatment. Pt voiced understanding and wished to leave AMA. All discharge instructions reviewed with patient and/or family. Voiced understanding. GENA ROBLES MED STUDENT Nov 02, 2021 14:28 YORDAN COUCH MD Nov 03, 2021 07:25
== END 2021-11-02 15:12 | disposition left against medical advice (07) ==
LOC: EDUNIT# 14:07 → ER 14:08
DX: F29 Unspecified psychosis not due to a substance or known physiological condition (principal); F32.A Depression, unspecified; F25.9 Schizoaffective disorder, unspecified; E66.9 Obesity, unspecified; F17.210 Nicotine dependence, cigarettes, uncomplicated; Z68.41 Body mass index [BMI] 40.0-44.9, adult; Z28.310 Unvaccinated for COVID-19
CPT/HCPCS: 93005

== ENCOUNTER 2021-12-09 01:29 | Emergency (ER) | payer MEDICARE, MEDICAID ==
[2021-12-09 02:11] LABS: BASOPHILS % (AUTO) 1 % (0-10); EOSINOPHILS # (AUTO) 0.3 10^3/uL (0.0-0.3); EOSINOPHILS % (AUTO) 4 % (0-10); HEMATOCRIT 34 % (35-52); HEMOGLOBIN 10.9 g/dL (11.5-16.0); LYMPHOCYTES # (AUTO) 2.4 10^3/uL (1.0-4.0); LYMPHOCYTES % (AUTO) 32 % (12-44); MEAN CORPUSCULAR HEMOGLOBIN 25 pg (25-34); MEAN CORPUSCULAR HGB CONC 32 g/dL (32-36); MEAN CORPUSCULAR VOLUME 78 fL (80-99); MEAN PLATELET VOLUME 10.5 fL (9.0-12.2); MONOCYTES # (AUTO) 0.5 10^3/uL (0.0-1.0); MONOCYTES % (AUTO) 7 % (0-12); NEUTROPHILS # (AUTO) 4.4 10^3/uL (1.8-7.8); NEUTROPHILS % (AUTO) 57 % (42-75); PLATELET COUNT 247 10^3/uL (130-400); WHITE BLOOD COUNT 7.7 10^3/uL (4.3-11.0)
[2021-12-09 02:23] LABS: ALBUMIN 3.8 GM/DL (3.2-4.5); CHLORIDE 112 MMOL/L (98-107); POTASSIUM 3.5 MMOL/L (3.6-5.0); SODIUM 141 MMOL/L (135-145)
[2021-12-09 02:25] LABS: CALCIUM 8.8 MG/DL (8.5-10.1)
[2021-12-09 02:26] LABS: GLUCOSE 124 MG/DL (70-105); TOTAL PROTEIN 6.4 GM/DL (6.4-8.2)
[2021-12-09 02:27] LABS: CARBON DIOXIDE 19 MMOL/L (21-32)
[2021-12-09 02:28] LABS: BILIRUBIN,TOTAL 0.3 MG/DL (0.1-1.0)
[2021-12-09 02:30] LABS: ALKALINE PHOSPHATASE 72 U/L (40-136); CREATININE SERUM 0.77 MG/DL (0.60-1.30); GFR ESTIMATED 109
[2021-12-09 02:31] LABS: BUN/CREATININE RATIO 17
[2021-12-09 02:32] LABS: SALICYLATE < 5.0 MG/DL (5.0-20.0)
[2021-12-09 02:33] LABS: ALANINE AMINOTRANSFERASE 19 U/L (0-55)
[2021-12-09 02:35] LABS: ACETAMINOPHEN < 10 UG/ML (10-30)
[2021-12-09 02:52] LABS: TSH (THYROID ANALYZER) 3.49 UIU/ML (0.35-4.94)
--- NOTE | 2021-12-09 02:59 | ED Psychosocial ---
General Chief Complaint: Overdose Stated Complaint: INTENTIONAL OVERDOSE Nursing Triage Note: PT ARRIVAL TO ER [facility]IA [facility] WITH COMPLAINT OF INTENTIONAL INGESTION. PT STATES THAT SHE STARTED THINKING ABOUT HER SON WHOM SHE DOESN'T HAVE CUSTODY OF AROUND 1999 LAST EVENING AND GOT SUICIDAL AND DECIDED TO TAKE 6 PILLS OF HER 1 MG PROZOSYN. PATIENT STATES THAT SHE CALLED EMS AROUND 011 BECAUSE SHE FELT LIKE HER BLOOD PRESSURE WAS LOW. PT STATES THAT SHE TAKES THIS MEDICATION FOR HER NIGHTMARES, BUT KNOWS IT IS ALSO USED TO TREAT BP. PT DENIES BEING SI/HI AT THIS TIME AND STATES THAT SHE WISHES SHE WOULDNT OF DONE THIS. PT ALSO HAS 2 SUPERFICIAL SCRATCHES ON LEFT WRIST FROM A BOX KNIFE. Source: patient (DAVID DUNBAR ) Source: patient Exam Limitations: no limitations (ROCKY SCHRADER DO) History of Present Illness Date Seen by Provider: Dec 09, 2021 Time Seen by Provider: 01:35 Initial Comments PT ARRIVES VIA EMS FROM HOME PT WITH LONGSTANDING PSYCHIATRIC ISSUES STATES SHE WAS FEELING SUICIDAL AROUND 1999 TONIGHT, AND SO SHE TOOK 6 MG OF PRAZOSIN STATES SHE IS NOT FEELING SUICIDAL NOW STATES SHE CALLED EMS TONIGHT "BECAUSE I WAS SCARED BECAUSE I OVER DOSED ON MY MEDICINE" PT CALLED EMS BECAUSE SHE THOUGHT HER BLOOD PRESSURE WAS DROPPING TOO FAST. BLOOD PRESSURE IS 121/92 ON ARRIVAL, HR 87, O2 SAT 98% ON ROOM AIR PT HAS NO SYMPTOMS OF ANY KIND PT STATE "BACK WHEN I OVERDOSED I WAS SUICIDAL, BUT I'M NOT NOW" " I DON'T REMEMBER WHY I WAS SUICIDAL" LATER STATES THAT HER SON CAME TO VISIT HER TODAY, PT STATES "I WAS BEING SNIPPY WITH HIS FATHER AND THEN I FELT GUILTY" PT ALSO HAS MULTIPLE PARALLEL AND PERPENDICULAR VERY SUPERFICIAL SCRATCHES TO LEFT ANTERIOR FOREARM--STATES SHE USED AN EXACT KNIFE TO MAKE THESE SCRATCHES. PT WITH EXTENSIVE PSYCH ISSUES AND HAS HAD A MULTITUDE OF VISITS HERE FOR PSYCH RELATED COMPLAINTS. PT WAS LAST ADMITTED TO [facility] IN , AND WAS RELEASED 11/15/21 PT STATES SHE WAS DISMISSED ON ABILIFY AND PRAZOSIN, THEN THE ABILIFY WAS SWITCHED TO ARISTADA INJECTIONS, AND PRAZOSIN WAS CONTINUED A COUPLE OF WEEKS AGO. PT LAST SAW HER THERAPIST AT [facility] LAST FRIDAY. PT LIVES ALONE, AND DOES NOT HAVE ANY CAREGIVERS, ETC THAT CHECK ON HER OR STAY WITH HER. LMP--UNKNOWN. PT HAS BEEN ON DEPO-PROVERA. STATES HE LAST SHOT WAS DUE OVER A MONTH AGO. HAS NOT BEEN USING ANYTHING ELSE FOR CONTROL PCP: DR. RYAN AT [facility]. HAS NOT SEEN "FOR AWHILE" PSYCH; [facility] MENTAL [facility]. (DAVID DUNBAR DO) Allergies and Home Medications Allergies Coded Allergies: haloperidol (Verified Allergy, Mild, 01/16/20) Patient Home Medication List Home Medication List Reviewed: Yes (DAVID DNUBAR DO) Aripiprazole (Abilify) 15 Mg Tablet, 15 MG PO DAILY, (Reported) Entered as Reported by: ASHLI RYAN on 05/30/21526 Cephalexin (Cephalexin) 500 Mg Tablet, 500 MG PO BID Prescribed by: ROCKY SCHRADER MD on 12/09/21 0822 Ondansetron (Ondansetron Odt) 4 Mg Tab.rapdis, 4 MG PO Q4H Prescribed by: DAVID DUNBAR on 11/20/18 07 Vit No.124/Iron/FA ( Vitamin Tablet) 1 Each Tablet, 1 EACH PO DAILY, (Reported) Entered as Reported by: ASHLI RYAN on 05/30/21 0527 Review of Systems Constitutional: no symptoms reported EENTM: no symptoms reported Respiratory: no symptoms reported Cardiovascular: no symptoms reported Gastrointestinal: no symptoms reported Genitourinary: no symptoms reported : No Control/STD Prophylaxis: None Musculoskeletal: see HPI Skin: see HPI Psychiatric/Neurological: No Symptoms Reported (DAVID DUNBAR DO) Past Opkamfe-Wjwjcx-Tvgbnx Hx Patient Social History Tobacco Use?: No Use of E-Cig and/or Vaping dev: No Substance use?: No Alcohol Use?: No Pt feels they are or have been: No (DAVID DUNBAR DO) Immunizations Up To Date Tetanus Booster (TDap): Less than 5yrs Influenza Vaccine Up-to-Date: No; Not Current First/Initial COVID19 Vaccinat: None Second COVID19 Vaccination Hernan: 09/20 Third COVID19 Vaccination Date: None 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 Surgeries: No Respiratory: No Cardiac: No Neurological: Yes Headaches /Migraines Reproductive Disorders: Yes Female Reproductive Disorders: Menstrual Problems Genitourinary: Yes UTI-Chronic Gastrointestinal: No Musculoskeletal: No Endocrine: Yes (OBESITY; REFUSES TO TAKE THYROID MEDICATIONS) Hypothyroidsim HEENT: No Cancer: No Psychosocial: Yes (CONVERSION DISORDER) Anxiety, Suicide Attempts, Bipolar, Personality Disorder, Schizophrenia, Depression Integumentary: No Blood Disorders: No (DAVID DUNBAR DO) Family Medical History Asthma 19 MOTHER No Pertinent Family Hx SOCIAL HISTORY: -ETOH-RARE USE -DRUGS-MARIJUANA -SMOKES 1-2 PPD PSYCH HISTORY--EXTENSIVE PSYCH ISSUES, SUICIDAL "THOUGHTS" BUT ONLY 1 ACTUAL ATTEMPT IN 2017. VERY MANIPULATIVE BEHAVIOR. EXTREME NON-COMPLIANCE IN ALL ASPECTS OF CARE (DAVID DUNBAR DO) Physical Exam Vital Signs - First Documented 12/09/21 01:30 Temp 36.2 Pulse 87 Resp 16 B/P (MAP) 121/92 (102) Pulse Ox 98 O2 Delivery Room Air (MACRINAROCKYAIDA Robles DO) Capillary Refill : Less Than 3 Seconds (DAVID DUNBAR DO) Height, Weight, BMI Height: 5'3.00" Weight: 275lbs. 5.0oz. 124.523611sx; 42.00 BMI Method:Stated General Appearance: WD/WN, no apparent distress, obese Respiratory: normal breath sounds Cardiovascular: regular rate, rhythm Gastrointestinal: non tender, soft Extremities: normal range of motion, non-tender, normal capillary refill, other (LEFT ANTERIOR FORARM WITH MULTIPLE PARALLEL AND PERPENDICULAR SUPERFICIAL SCRATCHES/ABRASIONS. SOME HAVE BARELY LEFT ANY JUSTYNA. 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, no motor/sensory deficits, alert, oriented x 3 Appearance/Memory: no memory impairment Behavior/Eye Contact: cooperative Thoughts/Hallucinations: no apparent hallucination Skin: normal color, warm/dry, other ( ABOVE) (DAVID DUNBAR DO) Progress/Results/Core Measures Results/Orders Lab Results Laboratory Tests Test 12/09/21 01:42 12/09/21 02:05 12/09/21 02:57 Range/Units Influenza Type A (RT-PCR) Not Detected Not Detecte Influenza Type B (RT-PCR) Not Detected Not Detecte SARS-CoV-2 RNA (RT-PCR) Not Detected Not Detecte White Blood Count 7.7 4.3-11.0 10^3/uL Red Blood Count 4.41 3.80-5.11 10^6/uL Hemoglobin 10.9 L 11.5-16.0 g/dL Hematocrit 34 L 35-52 % Mean Corpuscular Volume 78 L 80-99 fL Mean Corpuscular Hemoglobin 25 25-34 pg Mean Corpuscular Hemoglobin Concent 32 32-36 g/dL Red Cell Distribution Width 15.3 H 10.0-14.5 % Platelet Count 247 130-400 10^3/uL Mean Platelet Volume 10.5 9.0-12.2 fL Immature Granulocyte % (Auto) 0 % Neutrophils (%) (Auto) 57 42-75 % Lymphocytes (%) (Auto) 32 12-44 % Monocytes (%) (Auto) 7 0-12 % Eosinophils (%) (Auto) 4 0-10 % Basophils (%) (Auto) 1 0-10 % Neutrophils # (Auto) 4.4 1.8-7.8 10^3/uL Lymphocytes # (Auto) 2.4 1.0-4.0 10^3/uL Monocytes # (Auto) 0.5 0.0-1.0 10^3/uL Eosinophils # (Auto) 0.3 0.0-0.3 10^3/uL Basophils # (Auto) 0.0 0.0-0.1 10^3/uL Immature Granulocyte # (Auto) 0.0 0.0-0.1 10^3/uL Sodium Level 141 135-145 MMOL/L Potassium Level 3.5 L 3.6-5.0 MMOL/L Chloride Level 112 H 98-107 MMOL/L Carbon Dioxide Level 19 L 21-32 MMOL/L Anion Gap 10 5-14 MMOL/L Blood Urea Nitrogen 13 7-18 MG/DL Creatinine 0.77 0.60-1.30 MG/DL Estimat Glomerular Filtration Rate 109 BUN/Creatinine Ratio 17 Glucose Level 124 H 70-105 MG/DL Calcium Level 8.8 8.5-10.1 MG/DL Corrected Calcium 9.0 8.5-10.1 MG/DL Total Bilirubin 0.3 0.1-1.0 MG/DL Aspartate Amino Transf (AST/SGOT) 18 5-34 U/L Alanine Aminotransferase (ALT/SGPT) 19 0-55 U/L Alkaline Phosphatase 72 40-136 U/L Total Protein 6.4 6.4-8.2 GM/DL Albumin 3.8 3.2-4.5 GM/DL TSH [place] Testing 3.49 0.35-4.94 UIU/ML Salicylates Level < 5.0 L 5.0-20.0 MG/DL Acetaminophen Level < 10 L 10-30 UG/ML Serum Alcohol < 10 <10 MG/DL Urine Color YELLOW Urine Clarity CLEAR Urine pH 6.0 5-9 Urine Specific [place] 1.025 H 1.016-1.022 Urine Protein TRACE H NEGATIVE Urine Glucose (UA) NEGATIVE NEGATIVE Urine Ketones NEGATIVE NEGATIVE Urine Nitrite NEGATIVE NEGATIVE Urine Bilirubin NEGATIVE NEGATIVE Urine Urobilinogen 0.2 < = 1.0 MG/DL Urine Leukocyte Esterase 2+ H NEGATIVE Urine RBC (Auto) NEGATIVE NEGATIVE Urine RBC NONE /HPF Urine WBC 10-25 H /HPF Urine Squamous Epithelial Cells 10-25 H /HPF Urine Crystals NONE /LPF Urine Bacteria MODERATE H /HPF Urine Casts NONE /LPF Urine Mucus SMALL H /LPF Urine Culture Indicated YES Urine Opiates Screen NEGATIVE NEGATIVE Urine Oxycodone Screen NEGATIVE NEGATIVE Urine Methadone Screen NEGATIVE NEGATIVE Urine Propoxyphene Screen NEGATIVE NEGATIVE Urine Barbiturates Screen NEGATIVE NEGATIVE Ur Tricyclic Antidepressants Screen NEGATIVE NEGATIVE Urine Phencyclidine Screen NEGATIVE NEGATIVE Urine Amphetamines Screen NEGATIVE NEGATIVE Urine Methamphetamines Screen NEGATIVE NEGATIVE Urine Benzodiazepines Screen NEGATIVE NEGATIVE Urine Cocaine Screen NEGATIVE NEGATIVE Urine Cannabinoids Screen NEGATIVE NEGATIVE (MACRINALIUSH Travis DO) Vital Signs/I&O 12/09/21 01:30 Temp 36.2 Pulse 87 Resp 16 B/P (MAP) 121/92 (102) Pulse Ox 98 O2 Delivery Room Air (MACRINALUISH L DO) Blood Pressure Mean: 102 Progress Progress Note : Progress Note POISON CONTROL WAS CONTACTED ON PT'S ARRIVAL SUPPORTIVE CARE AND ROUTINE LAB ADVISED. NO TREATMENT, PT'S ALLEGED INGESTION OCCURRED > 6 HOURS AGO, AND WOULD BE HAVING SIGNS/SYMPTOMS OF ANY TOXIC INGESTION BY THIS TIME. 0310--PT HAS BEEN CLEARED MEDIALLY, AND NOW CONTACTING [facility] FOR MENTAL HEALTH SCREEN. PT CONTINUES TO STATE THAT SHE DOES NOT FEEL SUICIDAL ANYMORE 0400--POISON CONTROL HAS CALLED BACK AND THEY WERE UPDATED ON PT'S CONDITION 0600--CARE TURNED OVER TO DR. SCHRADER, MENTAL HEALTH SCREEN PENDING. PT HAS SLEPT FOR MOST OF ER STAY, AND VOICED NO COMPLAINTS AND HAS BEEN PLEASANT AND COOPERATIVE THROUGHOUT ER STAY (BETTINADAVID Zeb DAVID) Initial ECG Impression Date: Dec 09, 2021 Initial ECG Impression Time: 02:10 Initial ECG Rate: 63 Initial ECG Rhythm: Normal Sinus (DAVID DUNBAR DO) Departure Communication (Admissions) 0310--[facility] IS BEING CONTACTED AT THIS TIME. 0400--INFORMATION HAS BEEN FAXED TO [facility]/ [facility]. (DAVID DUNBAR DO) Patient is hemodynamically stable. She has been cooperative during her stay since 6 AM on my arrival. She has been evaluated by mental health to decide she is safe for discharge with a safety plan. I talked with patient and others at length and she is agreeable. She does have an incidentally found urinary tract infection will be treated with antibiotics. Discharged in stable condition (ROCKY SCHRADER DO) Impression Primary Impression: Suicidal ideation Additional Impressions: Intentional overdose of drug in tablet form Deliberate self-cutting UTI (urinary tract infection) Qualified Codes: N30.00 - Acute cystitis without hematuria Disposition: HOME, SELF-CARE Condition: Stable Departure-Patient Inst. Referrals: ASHLI RYAN MD (PCP/Family) Primary Care Physician Patient Instructions: ALCOHOL AND SUBSTANCE ABUSE, Urinary Tract Infection, Adult ED Add. Discharge Instructions: Please maintain safety plan recommendations as per mental health provider. Follow-up on Friday. Medications can be mailed to you as arranged. Take the antibiotics as prescribed for urinary tract infection. Return to the emergency department for any severe concerns, specifically if you feel like you want to harm yourself. All discharge instructions reviewed with patient and/or family. Voiced understanding. Scripts Cephalexin (Cephalexin) 500 Mg Tablet 500 MG PO BID for 5 Days, #10 TAB Prov: ROCKY SCHRADER DO 12/09/21 DAVID DUNBAR DO Dec 09, 2021 02:59 ROCKY SCHRADER DO Dec 09, 2021 08:23
[2021-12-09 03:03] LABS: BILIRUBIN,URINE NEGATIVE (NEGATIVE); CLARITY,URINE CLEAR; COLOR,URINE YELLOW; GLUCOSE, URINE (UA) NEGATIVE (NEGATIVE); KETONES,URINE NEGATIVE (NEGATIVE); LEUKOCYTE ESTERASE ,URINE 2+ (NEGATIVE); NITRITE,URINE NEGATIVE (NEGATIVE); PROTEIN,URINE TRACE (NEGATIVE)
[2021-12-09 03:11] LABS: BACTERIA,URINE MODERATE /HPF
[2021-12-09 03:14] LABS: AMPHETAMINE SCREEN, URINE NEGATIVE (NEGATIVE); BARBITURATE SCREEN URINE NEGATIVE (NEGATIVE); BENZODIAZEPINES SCREEN URINE NEGATIVE (NEGATIVE); CANNABINOID SCREEN, URINE NEGATIVE (NEGATIVE); COCAINE SCREEN URINE NEGATIVE (NEGATIVE); METHADONE STAT NEGATIVE (NEGATIVE); OPIATE SCREEN URINE NEGATIVE (NEGATIVE); OXYCODONE STAT NEGATIVE (NEGATIVE); PROPOXYPHENE STAT NEGATIVE (NEGATIVE); TRICYCLIC ANTIDEPRESSANTS SCRE NEGATIVE (NEGATIVE)
[2021-12-09] MEDS ORDERED: NITROFURANTOIN 100 MG (MACROBID) CAPSULE PO ONE ×2 (03:15→08:42)
[2021-12-09] MEDS ORDERED: CEPH500T PO (08:22)
[2021-12-09 09:12] VITALS: BP 121/92
== END 2021-12-09 09:12 | disposition home or self-care (01) ==
LOC: EDUNIT# 01:29 → ER 01:32
DX: N39.0 Urinary tract infection, site not specified (principal); T44.6X2A Poisoning by alpha-adrenoreceptor antagonists, intentional self-harm, initial encounter; E66.9 Obesity, unspecified; F17.210 Nicotine dependence, cigarettes, uncomplicated; Z20.822 Contact with and (suspected) exposure to COVID-19; Z68.41 Body mass index [BMI] 40.0-44.9, adult
CPT/HCPCS: 36415; 80053; 80306; 80320; 80329; 81000; 84443; 84703; 85025; 87077; 87088; 87636; 93005

== ENCOUNTER 2022-01-25 18:34 | Emergency (ER) | payer MEDICARE, MEDICAID ==
[~2022-01-25] VITALS: Ht 160 cm; Wt 113.4 kg
[~2022-01-25 18:34] MED LIST changes: +CEPH500T PO
[2022-01-25] MEDS ORDERED: LACTATED RINGERS 1,000 ML IV ONE ×2 (18:45→22:00)
--- NOTE | 2022-01-25 18:58 | ED Psychosocial ---
General Chief Complaint: Suicidal Ideation Risk Stated Complaint: OVERDOSE Nursing Triage Note: PT TO RM 6 VIA [facility] W REPORTS OF TAKING UNK AMT OF 1MG PRAZOSIN AND 5MG OLANZAPINE. WHEN ASKED WHY SHE TOOK PILLS PT STATES "BECAUSE I BELIEVE THE WORLD IS BETTER WITHOUT ME." PT BELONGINGS IMMEDIATELY SECURED UPON ENTRY TO RM 6, PT IN GOWN. PT REPORTS SHE'S BEEN EXPERIENCING S.I. X2 WEEKS. PT CALLED [facility] AFTER INGESTING PILLS, [facility] CALLED [facility], [facility] CALLED EMS. Source: patient, EMS, old records History of Present Illness Date Seen by Provider: Jan 25, 2022 Time Seen by Provider: 18:34 Initial Comments PT ARRIVES VIA EMS FROM HOME PT LIVES ALONE STATES SHE IS SUICIDAL AND TOOK AN UNKNOWN NUMBER OF PRAZOSIN 1 MG TABLETS, AT APPROXIMATELY 1600 TODAY EMS BRINGS IN A BOTTLE OF PILLS IN AN UNLABELED BOTTLE--EMS IDENTIFIED AT PRAZOSIN 1 MG TABLETS. PT STATES SHE HAD NOT TAKEN THEM FOR SEVERAL WEEKS "THAT'S WHY I HAVE SO MANY" . SHE HAD REPORTED TO EMS THAT SHE TOOK 10 PILLS EMS ALSO BRING IN A SINGLE PILL ALSO AT PT'S RESIDENCE. THIS IS IDENTIFIED OLANZAPINE 5 MG PT STATES SHE DID THIS "TO HURT MYSELF" "I'VE JUST BEEN FEELING LIKE THE WORLD IS BETTER OFF WITHOUT ME" LONGSTANDING HISTORY OF MENTAL HEALTH ISSUES. STATES SHE HAS BEEN FEELING THIS WAY FOR "ABOUT 2 WEEKS" GIVES NO REASON WHAT IS DIFFERENT TODAY THAT MADE HER DECIDE TO TAKE THE PILLS. SHE STATES SHE CALLED HER ACADEMIC AFFAIRS COORDINATOR BEFORE SHE TOOK THE PILLS, AND THEY TOLD HER TO CALL THE [facility] SHE REPORTS THAT SHE TOOK THE PILLS AFTER SHE TALKED WITH HER ACADEMIC AFFAIRS COORDINATOR, AND THEN SHE CALLED THE [facility], WHO THEN CALLED THE POLICE, WHO THEN CALLED EMS. SHE REPORTS TO EMS THAT SHE GOT "TO GO" "[employer]" FROM [facility] THIS AFTERNOON. STATES SHE TALKED TO HER CASE MANGER LAST WEEK, BUT DID NOT TALK TO HER ABOUT HER SUICIDAL THOUGHTS "BECAUSE I WANTED TO KEEP IT A SECRET" , BUT THEN SHE CALLED HER REPAIR MANAGER TODAY AND TALKED TO HER ABOUT IT. PT WITH A MULTITUDE OF VISITS HERE. MOST FOR PSYCH RELATED ISSUES LONG HISTORY OF NON-COMPLIANCE IN ALL ASPECTS OF CARE. HAS HISTORY OF CUTTING, BUT STATES SHE HAS NOT CUT RECENTLY LMP--"MONTHS AGO" --DEPO PROVERA SHOT LAST MONTH PT DELIVERED IN MAY OF THIS YEAR--SHE STATES THE FATHER OF THE CHILD HAS CUSTODY PT HAS HAD RECENT COLD SYMPTOMS. HAS NOT SOUGHT CARE FOR THAT ISSUE PT IS NOT COVID OR FLU VACCINATED PCP: DR. RYAN, [facility]--GOES TO [facility], AND ALSO [facility] Allergies and Home Medications Allergies Coded Allergies: haloperidol (Verified Allergy, Mild, 01/16/20) Patient Home Medication List Home Medication List Reviewed: Yes Aripiprazole (Abilify) 15 Mg Tablet, 15 MG PO DAILY, (Reported) Entered as Reported by: ASHLI RYAN on 05/30/21526 Cephalexin (Cephalexin) 500 Mg Tablet, 500 MG PO BID Prescribed by: ROCKY SCHRADER MD on 12/09/21821 Nitrofurantoin Monohyd/M-Cryst (Macrobid 100 mg Capsule) 100 Mg Capsule, 1 TAB PO BID Prescribed by: DAVID DUNBAR on 01/26/222302 Ondansetron (Ondansetron Odt) 4 Mg Tab.rapdis, 4 MG PO Q4H Prescribed by: DAVID DUNBAR on 11/20/18721 Vit No.124/Iron/FA ( Vitamin Tablet) 1 Each Tablet, 1 EACH PO DAILY, (Reported) Entered as Reported by: ASHLI RYAN on 05/30/21526 Review of Systems Constitutional: no symptoms reported EENTM: see HPI, nose congestion Respiratory: see HPI, cough; No short of breath, No wheezing Cardiovascular: no symptoms reported Gastrointestinal: no symptoms reported Genitourinary: no symptoms reported : No Control/STD Prophylaxis: Depo Provera Musculoskeletal: no symptoms reported Skin: no symptoms reported Psychiatric/Neurological: See HPI Past Fptpiwy-Ksmbra-Otxvnz Hx Patient Social History Tobacco Use?: Yes Tobacco type used: Cigarettes Smoking Status: Current Everyday Smoker Use of E-Cig and/or Vaping dev: No Substance use?: No Alcohol Use?: Yes Alcohol Frequency: Once in a while Immunizations Up To Date Tetanus Booster (TDap): Less than 5yrs First/Initial COVID19 Vaccinat: 09/20 Second COVID19 Vaccination Hernan: 09/20 Third COVID19 Vaccination Date: N/A COVID19 Vaccine 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 Surgeries: No Respiratory: No Cardiac: No Neurological: Yes Headaches /Migraines Reproductive Disorders: Yes Female Reproductive Disorders: Menstrual Problems Genitourinary: Yes UTI-Chronic Gastrointestinal: No Musculoskeletal: No Endocrine: Yes (OBESITY; REFUSES TO TAKE THYROID MEDICATIONS) Hypothyroidsim HEENT: No Cancer: No Psychosocial: Yes (CONVERSION DISORDER; CUTTING; PSYCH ADMITS) Anxiety, Suicide Attempts, Bipolar, Personality Disorder, Schizophrenia, Depression Integumentary: No Blood Disorders: No Family Medical History Asthma 19 MOTHER No Pertinent Family Hx SOCIAL HISTORY: -ETOH-RARE USE -DRUGS-MARIJUANA -SMOKES 1-2 PPD PSYCH HISTORY--EXTENSIVE PSYCH ISSUES, SUICIDAL "THOUGHTS" BUT ONLY 1 ACTUAL ATTEMPT IN 2017. VERY MANIPULATIVE BEHAVIOR. EXTREME NON-COMPLIANCE IN ALL ASPECTS OF CARE Physical Exam Vital Signs - First Documented 01/25/22 18:35 Temp 36.8 Pulse 110 Resp 20 B/P (MAP) 101/56 (71) Pulse Ox 98 O2 Delivery Room Air Capillary Refill : Less Than 3 Seconds Height, Weight, BMI Height: 5'3.00" Weight: 275lbs. 5.0oz. 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 RECOMMENDATIONS NOTED. MEDICATION PEAKS IN 3 HOURS, AND OBSERVE FOR 6 HOURS FROM TIME OF INGESTION. GIVEN IV FLUIDS 2049--PT RESTING QUIETLY. VITALS STABLE. ALL LAB IS ESSENTIALLY NORMAL FOR UTI. 2310--BP > 100 SYSTOLIC CONSISTENTLY. HR < 100 CONSISTENTLY. PT HAS BEEN CLEARED MEDICALLY. RN CALLING [facility] FOR M[facility]AL HEALTH SCREEN. 2340--HAVE BEEN INFORMED THAT PT IS 3RD IN LINE TO BE SCREENED. PT IS SLEEPING/ RESTING QUIETLY AT THIS TIME. VITALS STABLE. 0125--MENTAL HEALTH SCREEN IN PROGRESS NOW. 0138--SCREENER HAS DETERMINED THAT PT NEEDS INPATIENT TREATMENT. THEY WILL BEGIN PLACEMENT PROCESS. PT IS SLEEPING / RESTING QUIETLY AT THIS TIME. VITALS REMAIN STABLE. 0600--CARE TURNED OVER TO DR. HERNANDEZ, PLACEMENT PENDING. VITALS STABLE. PT HAS SLEPT FOR MOST OF SHIFT. EASILY AWAKENS AND IS ALERT AND ORIENTED X 4 AND IS COOPERATIVE. 1800--ASSUMED CARE OF PT AGAIN. PLACEMENT IS STILL PENDING AT THIS TIME. PT IS RESTING QUIETLY AT THIS TIME. VITALS STABLE. 1900--RN IS NOW CALLING PSYCH FACILITIES TO TRY TO FIND PLACEMENT, [facility] HAS NOT BEEN ABLE TO GET PT PLACED. 2134--RN HAS CONTACTED MULTIPLE FACILITIES AND FAXED PAPERWORK. PT HAS BEEN ACCEPTED AT [facility] IN . DR. MARTIN DUBOSE IS ACCEPTING PHYSICIAN. . RN IS CONTACTING [facility] FOR NEED FOR TRANSPORT. HE WILL BE HERE AT 0630 IN THE MORNING 2300--[facility] CALLED AND REQUESTED A WRITTEN RX FOR MACROBID TO BE SENT WITH PT, FOR TREATMENT OF UTI. Initial ECG Impression Date: Jan 25, 2022 Initial ECG Impression Time: 18:48 Initial ECG Rate: 102 Initial ECG Rhythm: S.Tach Departure Impression Primary Impression: Intentional overdose of drug in tablet form Additional Impressions: Suicidal ideation UTI (urinary tract infection) Disposition: 65 XFER TO PSYCH HOSP/UNIT Condition: Stable Transfer Transfer Reason: Exceeds level of care (NEED FOR INPATIENT PSYCHIATRIC CARE UNAVAILABLE AT THIS FACILITY.) Transfer Facility: [place], [place] Method of Transfer: [facility] Departure-Patient Inst. Referrals: ASHLI RYAN MD (PCP/Family) Primary Care Physician Scripts Nitrofurantoin Monohyd/M-Cryst (Macrobid 100 mg Capsule) 100 Mg Capsule 1 TAB PO BID, #20 CAP Prov: DAVID DUNBAR DO 01/26/22 DAVID DUNBAR DO Jan 25, 2022 18:58
[2022-01-25 19:03] LABS: BILIRUBIN,URINE NEGATIVE (NEGATIVE); CLARITY,URINE SL CLOUDY; COLOR,URINE YELLOW; GLUCOSE, URINE (UA) NEGATIVE (NEGATIVE); KETONES,URINE NEGATIVE (NEGATIVE); LEUKOCYTE ESTERASE ,URINE 1+ (NEGATIVE); NITRITE,URINE NEGATIVE (NEGATIVE); PROTEIN,URINE TRACE (NEGATIVE)
[2022-01-25 19:12] LABS: BACTERIA,URINE LARGE /HPF
[2022-01-25 19:13] LABS: HYALINE CASTS, URINE 0-2 /LPF; SQUAMOUS EPITHELIAL CELL,UR 25-50 /HPF
[2022-01-25 19:14] LABS: AMPHETAMINE SCREEN, URINE NEGATIVE (NEGATIVE); BARBITURATE SCREEN URINE NEGATIVE (NEGATIVE); BENZODIAZEPINES SCREEN URINE NEGATIVE (NEGATIVE); CANNABINOID SCREEN, URINE NEGATIVE (NEGATIVE); COCAINE SCREEN URINE NEGATIVE (NEGATIVE); METHADONE STAT NEGATIVE (NEGATIVE); OPIATE SCREEN URINE NEGATIVE (NEGATIVE); OXYCODONE STAT NEGATIVE (NEGATIVE); PROPOXYPHENE STAT NEGATIVE (NEGATIVE); TRICYCLIC ANTIDEPRESSANTS SCRE NEGATIVE (NEGATIVE)
[2022-01-25] MEDS ORDERED: NITROFURANTOIN 100 MG (MACROBID) CAPSULE PO ONE (19:45)
[2022-01-25 20:01] LABS: BASOPHILS % (AUTO) 0 % (0-10); EOSINOPHILS # (AUTO) 0.2 10^3/uL (0.0-0.3); EOSINOPHILS % (AUTO) 2 % (0-10); HEMATOCRIT 37 % (35-52); HEMOGLOBIN 11.9 g/dL (11.5-16.0); LYMPHOCYTES # (AUTO) 2.4 10^3/uL (1.0-4.0); LYMPHOCYTES % (AUTO) 27 % (12-44); MEAN CORPUSCULAR HEMOGLOBIN 25 pg (25-34); MEAN CORPUSCULAR HGB CONC 32 g/dL (32-36); MEAN CORPUSCULAR VOLUME 77 fL (80-99); MEAN PLATELET VOLUME 10.3 fL (9.0-12.2); MONOCYTES # (AUTO) 0.6 10^3/uL (0.0-1.0); MONOCYTES % (AUTO) 6 % (0-12); NEUTROPHILS # (AUTO) 5.8 10^3/uL (1.8-7.8); NEUTROPHILS % (AUTO) 64 % (42-75); PLATELET COUNT 222 10^3/uL (130-400)
[2022-01-25 20:21] LABS: ALANINE AMINOTRANSFERASE 16 U/L (0-55); ALBUMIN 4.1 GM/DL (3.2-4.5); ALKALINE PHOSPHATASE 80 U/L (40-136); BILIRUBIN,TOTAL 0.4 MG/DL (0.1-1.0); BUN/CREATININE RATIO 20; CARBON DIOXIDE 17 MMOL/L (21-32); CHLORIDE 108 MMOL/L (98-107); CREATININE SERUM 0.71 MG/DL (0.60-1.30); GFR ESTIMATED 120; GLUCOSE 108 MG/DL (70-105); POTASSIUM 3.5 MMOL/L (3.6-5.0); SALICYLATE < 5.0 MG/DL (5.0-20.0); SODIUM 138 MMOL/L (135-145); TOTAL PROTEIN 7.1 GM/DL (6.4-8.2)
[2022-01-25 20:34] LABS: ACETAMINOPHEN < 10 UG/ML (10-30)
[2022-01-25 20:41] LABS: TSH (THYROID ANALYZER) 1.41 UIU/ML (0.35-4.94)
[2022-01-25] MEDS ORDERED: NS IV 1000 ML 1,000 ML IV SCH (22:45)
[2022-01-26] MEDS ORDERED: NITROFURANTOIN 100 MG (MACROBID) CAPSULE PO SCH (21:00)
[2022-01-26] MEDS ORDERED: NITR-65 PO (23:03)
[2022-01-27 06:32] VITALS: BP 120/77
== END 2022-01-27 06:32 ==
LOC: EDUNIT# 18:34 → ER 18:36
DX: T44.6X2A Poisoning by alpha-adrenoreceptor antagonists, intentional self-harm, initial encounter (principal); T43.592A Poisoning by other antipsychotics and neuroleptics, intentional self-harm, initial encounter; R45.851 Suicidal ideations; N39.0 Urinary tract infection, site not specified; F17.210 Nicotine dependence, cigarettes, uncomplicated; E66.9 Obesity, unspecified; Z68.41 Body mass index [BMI] 40.0-44.9, adult; Z20.822 Contact with and (suspected) exposure to COVID-19
CPT/HCPCS: 36415; 80053; 80306; 80320; 80329; 81000; 84443; 84703; 85025; 87636; 93005; 93041

== ENCOUNTER 2022-08-29 23:05 | Emergency (ER) | payer MEDICARE, MEDICAID ==
[~2022-08-29 23:05] MED LIST changes: -BENZ1TAB6 PO; +BENZ1TAB74 PO
== END 2022-08-29 23:52 | disposition left against medical advice (07) ==
LOC: EDUNIT# 23:05 → ER 23:11

== ENCOUNTER 2022-10-06 15:18 | Emergency (ER) | payer MEDICARE, MEDICAID ==
[~2022-10-06] VITALS: Ht 160 cm; Wt 116.0 kg
[2022-10-06 15:36] VITALS: BP 129/89
--- NOTE | 2022-10-06 15:54 | ED Neurological Problem ---
General Chief Complaint: Suicidal Ideation Risk Stated Complaint: SUICIDAL IDEATION Nursing Triage Note: Pt states that she has had on and off thoughts of suicide today without action. Pt states that she was on the phone with the save line and stated that the was extremely anxious and her right side went numb. Pt stated when she calmed down, the numbness went away. Source: patient Exam Limitations: no limitations History of Present Illness Date Seen by Provider: Oct 06, 2022 Time Seen by Provider: 15:19 Initial Comments 27-year-old female presents to the ER via EMS for reports of right-sided numbness which started around 2:40 PM and lasted approximately 5 to 10 minutes. She states the numbness was in her entire right side of her body including her face, arm, leg. She states that prior to the numbness occurring, she was feeling anxious and was hyperventilating. She states she felt generalized weakness during this and also felt shaky. Denied unilateral weakness. She states that this morning she was having suicidal ideation, she states that now the suicidal ideation is intermittent, denies suicidal ideation at this time. She said that she called the SAVE line who told her to come into the ER due to the right-sided numbness. She states that she had a plan earlier to get run over by a car or a train, but states that she currently has no intentions of doing this. Past medical history includes schizoaffective disorder and borderline personality disorder. She currently takes Invega and Depo. She denies any fevers, abdominal pain, nausea, vomiting, dysuria. Reports 3 episodes of loose stools yesterday. Her psychiatrist is Dr. Coats at [facility], and her therapist is Berta at [facility]. Allergies and Home Medications Allergies Coded Allergies: haloperidol (Verified Allergy, Mild, 01/16/20) Patient Home Medication List Home Medication List Reviewed: Yes Aripiprazole (Abilify) 15 Mg Tablet, 15 MG PO DAILY, (Reported) Entered as Reported by: ASHLI RYAN on 05/30/21 05 Cephalexin (Cephalexin) 500 Mg Tablet, 500 MG PO BID Prescribed by: ROCKY SCHRADER MD on 12/09/21 0822 Nitrofurantoin Monohyd/M-Cryst (Macrobid 100 mg Capsule) 100 Mg Capsule, 1 TAB PO BID Prescribed by: DAVID DUNBAR on 01/26/22 2303 Ondansetron (Ondansetron Odt) 4 Mg Tab.rapdis, 4 MG PO Q4H Prescribed by: DAVID DUNBAR on 11/20/18 0722 Vit No.124/Iron/FA ( Vitamin Tablet) 1 Each Tablet, 1 EACH PO DAILY, (Reported) Entered as Reported by: ASHLI RYAN on 05/30/21 0527 Review of Systems Review of Systems Constitutional: see HPI Past Slfppor-Cqphee-Vbuwdt Hx Patient Social History Tobacco Use?: Yes Tobacco type used: Cigarettes Smoking Status: Current Everyday Smoker Use of E-Cig and/or Vaping dev: No Substance use?: No Alcohol Use?: Yes Alcohol Frequency: Rarely Pt feels they are or have been: No Immunizations Up To Date Tetanus Booster (TDap): Less than 5yrs Influenza Vaccine Up-to-Date: No; Not Current First/Initial COVID19 Vaccinat: 09/20 Second COVID19 Vaccination [place]: 09/20 Third COVID19 Vaccination Date: N/A Seasonal Allergies Seasonal Allergies: No Past Medical History Surgery/Hospitalization HX: bipolar, schizoaffective disorder, thyroid issues but does not take medication. Surgeries: No Respiratory: No Cardiac: No Neurological: Yes Headaches /Migraines Reproductive Disorders: Yes Female Reproductive Disorders: Menstrual Problems Genitourinary: Yes UTI-Chronic Gastrointestinal: No Musculoskeletal: No Endocrine: Yes (OBESITY; REFUSES TO TAKE THYROID MEDICATIONS) Hypothyroidsim HEENT: No Cancer: No Psychosocial: Yes (CONVERSION DISORDER; CUTTING; PSYCH ADMITS) Anxiety, Suicide Attempts, Bipolar, Personality Disorder, Schizophrenia, Depression Integumentary: No Blood Disorders: No Family Medical History Asthma 19 MOTHER No Pertinent Family Hx SOCIAL HISTORY: -ETOH-RARE USE -DRUGS-MARIJUANA -SMOKES 1-2 PPD PSYCH HISTORY--EXTENSIVE PSYCH ISSUES, SUICIDAL "THOUGHTS" BUT ONLY 1 ACTUAL ATTEMPT IN 2017. VERY MANIPULATIVE BEHAVIOR. EXTREME NON-COMPLIANCE IN ALL ASPECTS OF CARE Physical Exam Vital Signs Vital Signs - First Documented 10/06/22 15:36 Temp 36.4 Pulse 110 Resp 16 B/P (MAP) 129/89 (102) O2 Delivery Room Air Capillary Refill : Less Than 3 Seconds Height, Weight, BMI Height: 5'3.00" Weight: 275lbs. 5.0oz. 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-XII nml as tested, no motor/sensory deficits, alert, normal mood/affect, oriented x 3 Crainal Nerves: normal hearing, normal speech, PERRL Coordination/Gait: normal finger to nose Skin: normal color, warm/dry Stroke NIH Stroke Scale Assessment Select: Initial Level of Consciousness: 0=Alert (0), Level of Consciousness- Questions: 0=Answers both month/age (0), LOC Commands: 0=Performs both tasks (0), Gaze: Normal (0), Visual Bauer: 0=No visual loss (0), Facial Movement (Facial Paresis): 0=Normal symmetrical mnt (0), Motor Function-Arms Right: 0=No drift (0), Motor Function-Arms Left: 0=No drift (0), Motor Function-Legs Right: 0=No drift (0), Motor Function-Legs Left: 0=No drift (0), Limb Ataxia: 0=Absent (0), Sensory: 0=Normal:no loss (0), Best Language: 0=No aphasia (0), Dysarthria: 0=Normal (0), Extinction & Inattention: 0=No abnormality (0), Total: 0 Progress/Results/Core Measures Results/Orders Lab Results Laboratory Tests Test 10/06/22 15:55 10/06/22 16:07 Range/Units Urine Color YELLOW Urine Clarity SLIGHTLY CLOUDY Urine pH 6.5 5-9 Urine Specific Kincaid 1.015 L 1.016-1.022 Urine Protein NEGATIVE NEGATIVE Urine Glucose (UA) NEGATIVE NEGATIVE Urine Ketones NEGATIVE NEGATIVE Urine Nitrite NEGATIVE NEGATIVE Urine Bilirubin NEGATIVE NEGATIVE Urine Urobilinogen 0.2 < = 1.0 MG/DL Urine Leukocyte Esterase NEGATIVE NEGATIVE Urine RBC (Auto) TRACE H NEGATIVE Urine RBC NONE /HPF Urine WBC RARE /HPF Urine Squamous Epithelial Cells 5-10 /HPF Urine Crystals NONE /LPF Urine Bacteria TRACE /HPF Urine Casts NONE /LPF Urine Mucus NEGATIVE /LPF Urine Culture Indicated NO Urine Test NEGATIVE NEGATIVE Glucometer 119 H 70-110 MG/DL Urine Opiates Screen NEGATIVE NEGATIVE Urine Oxycodone Screen NEGATIVE NEGATIVE Urine Methadone Screen NEGATIVE NEGATIVE Urine Propoxyphene Screen NEGATIVE NEGATIVE Urine Barbiturates Screen NEGATIVE NEGATIVE Ur Tricyclic Antidepressants Screen NEGATIVE NEGATIVE Urine Phencyclidine Screen NEGATIVE NEGATIVE Urine Amphetamines Screen NEGATIVE NEGATIVE Urine Methamphetamines Screen NEGATIVE NEGATIVE Urine Benzodiazepines Screen NEGATIVE NEGATIVE Urine Cocaine Screen NEGATIVE NEGATIVE Urine Cannabinoids Screen NEGATIVE NEGATIVE SARS-CoV-2 RNA (RT-PCR) Not Detected Not Detecte White Blood Count 7.2 4.3-11.0 10^3/uL Red Blood Count 5.24 H 3.80-5.11 10^6/uL Hemoglobin 12.8 11.5-16.0 g/dL Hematocrit 40 35-52 % Mean Corpuscular Volume 77 L 80-99 fL Mean Corpuscular Hemoglobin 24 L 25-34 pg Mean Corpuscular Hemoglobin Concent 32 32-36 g/dL Red Cell Distribution Width 15.9 H 10.0-14.5 % Platelet Count 255 130-400 10^3/uL Mean Platelet Volume 10.2 9.0-12.2 fL Immature Granulocyte % (Auto) 0 % Neutrophils (%) (Auto) 54 42-75 % Lymphocytes (%) (Auto) 35 12-44 % Monocytes (%) (Auto) 6 0-12 % Eosinophils (%) (Auto) 4 0-10 % Basophils (%) (Auto) 0 0-10 % Neutrophils # (Auto) 3.9 1.8-7.8 10^3/uL Lymphocytes # (Auto) 2.5 1.0-4.0 10^3/uL Monocytes # (Auto) 0.4 0.0-1.0 10^3/uL Eosinophils # (Auto) 0.3 0.0-0.3 10^3/uL Basophils # (Auto) 0.0 0.0-0.1 10^3/uL Immature Granulocyte # (Auto) 0.0 0.0-0.1 10^3/uL Prothrombin Time 13.3 12.2-14.7 SEC INR Comment 1.0 0.8-1.4 Activated Partial Thromboplast Time 29 24-35 SEC D-Dimer 1.45 H 0.00-0.49 UG/ML Sodium Level 142 135-145 MMOL/L Potassium Level 3.4 L 3.6-5.0 MMOL/L Chloride Level 110 H 98-107 MMOL/L Carbon Dioxide Level 20 L 21-32 MMOL/L Anion Gap 12 5-14 MMOL/L Blood Urea Nitrogen 9 7-18 MG/DL Creatinine 0.79 0.60-1.30 MG/DL Estimat Glomerular Filtration Rate 105 BUN/Creatinine Ratio 11 Glucose Level 104 70-105 MG/DL Calcium Level 9.7 8.5-10.1 MG/DL Corrected Calcium 9.3 8.5-10.1 MG/DL Total Bilirubin 0.4 0.1-1.0 MG/DL Aspartate Amino Transf (AST/SGOT) 18 5-34 U/L Alanine Aminotransferase (ALT/SGPT) 21 0-55 U/L Alkaline Phosphatase 97 40-136 U/L Troponin I < 0.028 <0.028 NG/ML Total Protein 7.8 6.4-8.2 GM/DL Albumin 4.5 3.2-4.5 GM/DL TSH [place] Testing 2.06 0.35-4.94 UIU/ML Salicylates Level < 5.0 L 5.0-20.0 MG/DL Acetaminophen Level < 10 L 10-30 UG/ML Serum Alcohol < 10 <10 MG/DL My Orders Orders - BAM VELIZ R RESEARCH ANTHROPOLOGIST Ua Culture If Indicated (10/06/22 15:22) Cbc With Automated Diff (10/06/22 15:22) Comprehensive Metabolic Panel (10/06/22 15:22) Alcohol (10/06/22 15:22) Drug Screen Stat (Urine) (10/06/22 15:22) Acetaminophen (10/06/22 15:22) Salicylate (10/06/22 15:22) Hcg,Qualitative Urine (10/06/22 15:22) Ed Iv/Invasive Line Start (10/06/22 15:22) Thyroid Analyzer (10/06/22 15:22) Covid 19 Inhouse Test (10/06/22 15:22) Protime With Inr (10/06/22 15:39) Partial Thromboplastin Time (10/06/22 15:39) Fibrin Degradation Products (10/06/22 15:39) Troponin I Emmanuel (10/06/22 15:39) Ekg Tracing (10/06/22 15:39) Accucheck Stat ONCE (10/06/22 15:39) Vital Signs Stroke Patient Q15M (10/06/22 15:39) Ct Head Wo-R/O Stroke (10/06/22 15:39) Monitor-Rhythm Ecg Trace Only (10/06/22 15:39) Dysphagia Screening Tool Q10MX1 (10/06/22 15:39) Bh Status Checks/Observation O Q15M (10/06/22 15:42) Ns Iv 1000 Ml (Sodium Chloride 0.9%) (10/06/22 16:00) General/Regular (10/06/22 Dinner) Vital Signs/I&O 10/06/22 15:36 Temp 36.4 Pulse 110 Resp 16 B/P (MAP) 129/89 (102) O2 Delivery Room Air Blood Pressure Mean: 102 Progress Progress Note : Progress Note Patient seen and evaluated, resting comfortably on bed, no acute distress. Based on exam and symptoms, work-up initiated including CBC, CMP, alcohol, Tylenol, salicylate level, coags, troponin, D-dimer, UA, UDS, urine , EKG, Accu-Chek, CT head stroke rule out. Labs and CT reviewed. CBC normal. CMP shows slightly decreased potassium 3.4, slightly elevated chloride 110, slightly decreased CO2 20. Glucose normal. Troponin negative. TSH normal. Coags normal. D-dimer slightly elevated 1.45. Urinalysis negative for infection. Urine negative. Urine drug screen negative. Patient negative for alcohol, Tylenol, salicylate. COVID-negative. CT of the head is negative for acute abnormality. 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 Radiologist recommends follow-up with nonemergent MRI. Results discussed with patient. Patient instructed to follow- up with primary care provider regarding the lipoma. I do not think this is the exam for her symptoms. Patient's symptoms have not returned. The numbness and tingling could have been related to her hyperventilating from her anxiety. Will continue with mental health evaluation by [facility]. Patient states she is no longer suicidal, but would still like to speak with [facility]. 2044 [facility] screened patient and set up a safety plan with her. I read t he safety plan, I discussed a safety plan with the patient, patient agrees to adhere to safety plan. Discharge instructions and return precautions provided. Initial ECG Impression Date: Oct 06, 2022 Initial ECG Impression Time: 15:47 Initial ECG Rate: 79 Initial ECG Rhythm: Normal Sinus Initial ECG Intervals: Normal Initial ECG Impression: Normal Initial ECG Comparisson: Unchanged Departure Impression Primary Impression: Numbness Additional Impression: Suicidal ideation Disposition: 01 HOME, SELF-CARE Condition: Stable Departure-Patient Inst. Decision time for Depature: 20:46 Referrals: ASHLI RYAN MD (PCP/Family) Primary Care Physician Patient Instructions: OUTPT MENTAL HEALTH SERVICES Add. Discharge Instructions: Follow-up with your primary care provider regarding the lipoma seen on your CT scan. Adhere to the safety plan established by [facility]. Follow-up with your therapist or psychiatrist, call them tomorrow to schedule a follow-up appointment. Return for any new, concerning, or worsening symptoms. All discharge instructions reviewed with patient and/or family. Voiced understanding. Copy Copies To 1: ASHLI RYAN MD, BRITTANY R APRN Oct 06, 2022 15:54
[2022-10-06] MEDS ORDERED: NS IV 1000 ML 1,000 ML IV SCH (16:00)
--- NOTE | 2022-10-06 16:14 | Diagnostic Imaging Report ---
PROCEDURE: CT head w/o r/o stroke. TECHNIQUE: Multiple contiguous axial images were obtained through the brain without the use of intravenous contrast. Auto Exposure Controls were utilized during the CT exam to meet ALARA standards for radiation dose reduction. INDICATION: 27-year-old female, right-sided numbness x 15 minutes. CORRELATION: None. FINDINGS: There is no midline shift or mass effect. The ventricles and sulci are unremarkable. No evidence for acute intracranial hemorrhage, abnormal extra-axial fluid collection or cerebral edema is present. 7 mm low-density fatty mass just superior to the pineal region, likely lipoma. The basilar cisterns are unremarkable. The bony calvarium is intact. The visualized paranasal sinuses and mastoid air cells are clear. IMPRESSION: 1. Negative for acute intracranial abnormality of the head. 2. Fatty density mass just superior to the pineal region. Given somewhat indeterminate location, correlation with nonemergent pre and postcontrast MRI of the brain is recommended Dictated by: Dictated on workstation # [id number]
[2022-10-06 16:17] LABS: CLARITY,URINE SLIGHTLY CLOUDY; COLOR,URINE YELLOW; PH,URINE 6.5 (5-9)
[2022-10-06 16:18] LABS: BACTERIA,URINE TRACE /HPF; BILIRUBIN,URINE NEGATIVE (NEGATIVE); GLUCOSE, URINE (UA) NEGATIVE (NEGATIVE); KETONES,URINE NEGATIVE (NEGATIVE); LEUKOCYTE ESTERASE ,URINE NEGATIVE (NEGATIVE); NITRITE,URINE NEGATIVE (NEGATIVE); PROTEIN,URINE NEGATIVE (NEGATIVE); WBC,URINE RARE /HPF
[2022-10-06 16:19] LABS: HCG,QUALITATIVE URINE NEGATIVE (NEGATIVE)
[2022-10-06 16:27] LABS: AMPHETAMINE SCREEN, URINE NEGATIVE (NEGATIVE); BARBITURATE SCREEN URINE NEGATIVE (NEGATIVE); BENZODIAZEPINES SCREEN URINE NEGATIVE (NEGATIVE); CANNABINOID SCREEN, URINE NEGATIVE (NEGATIVE); COCAINE SCREEN URINE NEGATIVE (NEGATIVE); METHADONE STAT NEGATIVE (NEGATIVE); OPIATE SCREEN URINE NEGATIVE (NEGATIVE); OXYCODONE STAT NEGATIVE (NEGATIVE); PROPOXYPHENE STAT NEGATIVE (NEGATIVE); TRICYCLIC ANTIDEPRESSANTS SCRE NEGATIVE (NEGATIVE)
[2022-10-06 16:29] LABS: BASOPHILS % (AUTO) 0 % (0-10); EOSINOPHILS # (AUTO) 0.3 10^3/uL (0.0-0.3); EOSINOPHILS % (AUTO) 4 % (0-10); HEMATOCRIT 40 % (35-52); HEMOGLOBIN 12.8 g/dL (11.5-16.0); LYMPHOCYTES # (AUTO) 2.5 10^3/uL (1.0-4.0); LYMPHOCYTES % (AUTO) 35 % (12-44); MEAN CORPUSCULAR HEMOGLOBIN 24 pg (25-34); MEAN CORPUSCULAR HGB CONC 32 g/dL (32-36); MEAN CORPUSCULAR VOLUME 77 fL (80-99); MEAN PLATELET VOLUME 10.2 fL (9.0-12.2); MONOCYTES # (AUTO) 0.4 10^3/uL (0.0-1.0); MONOCYTES % (AUTO) 6 % (0-12); NEUTROPHILS # (AUTO) 3.9 10^3/uL (1.8-7.8); NEUTROPHILS % (AUTO) 54 % (42-75); PLATELET COUNT 255 10^3/uL (130-400); WHITE BLOOD COUNT 7.2 10^3/uL (4.3-11.0)
[2022-10-06 16:38] LABS: ALBUMIN 4.5 GM/DL (3.2-4.5); CHLORIDE 110 MMOL/L (98-107); POTASSIUM 3.4 MMOL/L (3.6-5.0); SODIUM 142 MMOL/L (135-145)
[2022-10-06 16:40] LABS: CALCIUM 9.7 MG/DL (8.5-10.1)
[2022-10-06 16:41] LABS: GLUCOSE 104 MG/DL (70-105); TOTAL PROTEIN 7.8 GM/DL (6.4-8.2)
[2022-10-06 16:42] LABS: BILIRUBIN,TOTAL 0.4 MG/DL (0.1-1.0); CARBON DIOXIDE 20 MMOL/L (21-32); PROTHROMBIN TIME PATIENT 13.3 SEC (12.2-14.7)
[2022-10-06 16:44] LABS: ALKALINE PHOSPHATASE 97 U/L (40-136); CREATININE SERUM 0.79 MG/DL (0.60-1.30); GFR ESTIMATED 105
[2022-10-06 16:45] LABS: FIBRIN DEGRADATION PRODUCTS 1.45 UG/ML (0.00-0.49)
[2022-10-06 16:46] LABS: BUN/CREATININE RATIO 11
[2022-10-06 16:47] LABS: SALICYLATE < 5.0 MG/DL (5.0-20.0)
[2022-10-06 16:48] LABS: ALANINE AMINOTRANSFERASE 21 U/L (0-55)
[2022-10-06 16:57] LABS: ACETAMINOPHEN < 10 UG/ML (10-30)
[2022-10-06 17:07] LABS: TSH (THYROID ANALYZER) 2.06 UIU/ML (0.35-4.94)
== END 2022-10-06 21:09 | disposition home or self-care (01) ==
LOC: EDUNIT# 15:18 → ER 15:20
DX: R20.0 Anesthesia of skin (principal); R45.851 Suicidal ideations; F17.210 Nicotine dependence, cigarettes, uncomplicated; E66.9 Obesity, unspecified; F25.0 Schizoaffective disorder, bipolar type; F60.3 Borderline personality disorder; Z79.899 Other long term (current) drug therapy; Z68.42 Body mass index [BMI] 45.0-49.9, adult; Z20.822 Contact with and (suspected) exposure to COVID-19
CPT/HCPCS: 36415; 70450; 80053; 80306; 80320; 80329; 81000; 82947; 84443; 84484; 84703; 85025; 85379; 85610; 85730; 87636; 93005

== ENCOUNTER → 2022-12-06 | Outpatient (CLI) | payer MEDICARE ==
[~2022-12-06] MED LIST changes: +GADOTERATE 0.5 MMOL/ML (CLARISCAN) 20 ML VIAL IV ONE
--- NOTE | 2022-12-06 15:56 | Diagnostic Imaging Report ---
PROCEDURE: MR imaging of the brain without contrast. TECHNIQUE: Multiplanar, multisequence MR imaging of the brain was performed without contrast. INDICATION: Pineal region mass. COMPARISON: CT head without contrast from 10/06/2022. FINDINGS: Along the anterior surface of the splenium of the corpus callosum is a 0.6 x 0.8 cm T1/T2 hypointense mass corresponding to the low-attenuation region seen on the comparison CT. No mass effect. No abnormal signal in the adjacent parenchyma. No other abnormal intracranial signal. No restricted water diffusion. No hemosiderin deposition or evidence of intracranial hemorrhage. Normal morphology including the major midline structures, sella, posterior fossa and cerebellopontine angle. Normal intracranial flow voids. No hydrocephalus or extra-axial fluid collections. The orbits are unremarkable. Paranasal sinuses and mastoids are clear. Normal bone marrow signal. IMPRESSION: 1. 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 No further follow-up is warranted. 2. MRI of the brain is otherwise negative. No acute findings. No evidence of acute infarction or hemorrhage. Dictated by: Dictated on workstation # [id number]
== END ==
LOC: RAD 09:40
PROVIDERS: ATTEND Family Medicine
DX: D17.0 Benign lipomatous neoplasm of skin and subcutaneous tissue of head, face and neck (principal)
CPT/HCPCS: 70551